=== PATIENT | female | born 1940 | race Caucasian/White ===

== ENCOUNTER → 2016-08-13 | Outpatient (CLI) | payer MEDICARE, BC ==
[2016-08-05 15:52] VITALS: BMI 27.4
[2016-08-13 13:31] VITALS: BP 143/69; PULSE 69; RESP 16; TEMP 98.2
--- NOTE | 2016-08-13 14:09 | P.CONS ---
History of Present Illness - Reason for Consult Consult date: 08/13/16 - History of Present Illness This is the initial consultation visit for this 76 years old female with a chronic history of severe low back pain with radiation to the lower extremity, started more than 6 months ago, the patient being treated by and Dr. Carbone at no other surgical Center, and she had diagnostic medial branch block lumbar area L2 to L5, and the result of the block was successful on 2 different occasions, and patient referred to [facility] pain clinic to have radiofrequency ablation of the medial branch lumbar area,( because patient had the defibrillator ) , patient denies any motor or sensory deficits denies any change in the bowel movement or urination, and she has no fever or night sweats, she is able to ambulate with difficulty secondary to pain, and the pain interfering with her quality of life and activity of daily livings, and she is here today, to discuss the radiofrequency ablation of the medial branch and to schedule her for the procedure Past Medical History Past Medical History: Coronary Artery Disease (CAD), Chest Pain / Angina, Heart Failure, CVA/TIA, Hyperlipidemia, Hypertension Additional Past Medical History / Comment(s): pain hips and "disc problems in back". Stroke - May 2015 History of Any Multi-Drug Resistant Organisms: None Reported Past Surgical History: AICD, Appendectomy, Cholecystectomy, Coronary Bypass/CABG , Hernia Repair, Orthopedic Surgery Additional Past Surgical History / Comment(s): CABG 2002, lt hip repair Past Anesthesia/Blood Transfusion Reactions: Motion Sickness Type of Cardiac Device: AICD Device Placement Date:: 2002 Past Psychological History: No Psychological Hx Reported Smoking Status: Current every day smoker Past Alcohol Use History: None Reported Additional Past Alcohol Use History / Comment(s): smokes 3 cigarettes/day Past Drug Use History: None Reported Additional Drug Use History / Comment(s): Smokes "3 cigarettes a day" - Past Family History Father Family Medical History: Cancer Additional Family Medical History / Comment(s): from colon cancer Mother Family Medical History: Cancer Additional Family Medical History / Comment(s): kidney cancer Medications and Allergies Home Medications Medication Instructions Recorded Confirmed Type ALPRAZolam [Xanax] 0.25 mg PO TID PRN 06/06/15 08/13/16 History Cholecalciferol [Vitamin D3] 1,000 unit PO DAILY 06/06/15 08/13/16 History Lisinopril [Zestril] 2.5 mg PO DAILY 06/06/15 08/13/16 History Atorvastatin [Lipitor] 80 mg PO HS 01/03/16 08/13/16 History Carvedilol [Coreg] 6.25 mg PO BID 01/03/16 08/13/16 History Fluticasone Nasal [place] [Flonase 1 spray EA NOSTRIL BID PRN 01/03/16 08/13/16 History Nasal [place]] Allergies Allergy/AdvReac Type Severity Reaction Status Date / Time No Known Allergies Allergy Verified 08/13/16 13:09 Physical Exam Vitals: Vital Signs Temp Pulse Resp BP 08/13/16 13:14 98.2 F 69 16 143/69 Social history : smoker , NO ETOH , NO Illegal drugs use . Review of Systems : 1- Constitutional : no chills , no fever , no night sweats , 2- Ears : no ear discharge , no change in hearing 3-Nose, Mouth ,Throat ; no bleeding gums, no sore throat , no epistaxis , 4-Cardiovascular : Denies chest pain, , no orthopnea , no palpitation 5-Respiratory : Denies cough , no dyspnea , no hemoptysis 6-Gastrointestinal :, no change in bowel habits , no coffee- ground emesis . 7-Genitourinary : No hematuria , no discharge , no incontinence, 8-Musculoskeletal : No gait dysfunction , report low back pain , 9- Neurological : no ataxia , no tremor , no sezure , 10-Psychatric , no suicidal ideation no hallucination 11- Endocrine : no cold intolerence , no polyuria , no polydypsia , 12-Hematologic : no easy bleeding , no easy brusing , 13-Allergic / immunology : no angioedema , no wheezing ,no allergic rhinitis 14-Integumentary : no brttle nails , no change hair / nails , no foot/leg ulcers . Physical Examinations : 1-Constitutional : Cooperative , not in acute distress . 2-HEENT : nech ; supple , no Lymphadenopathy , no Thyromegaly , eyes , no icterus, no photophobia . ENT : , normal oropharynx , no Thrush 3- Respiratory : Chest clear to auscultations Bilaterally , no wheezing . 4- Cardiovascular : regular rate and rhythem , S1 , S2 , no S3 , no S4. 5- Gastrointestinal: abdomen soft no tenderness , no organomegally . 6- Genitourinary : Defferred . 7-Integumentary : No cellulitis , no ulcers , normal skin turgor , no cyanotic . 8- neurologic : Cranial nerve II to XII intact , no focal neurological deffecit 9-psychatric : alert , oriented X 3 , appropriate affect , intact judgment and insight . 10-Lymphatic : no Lymphadenopathy. 11- musculoskeltal: exams of the Lumber spine = moter stegnth lower extremities , thigh and legs 5/5 Right side , 5/5 Left side deep tendon reflexes : normal Knee Jerk , normal ankle Jerk positive lumber facet Loading Test Range of motion of the lumbar spine Flexion 60 degrees, extension 10 degrees strait leg raising test negative bilaterally Fabere test negative bilaterally Results Comments: Computed tomography scan of the lumbar spine done December multilevel lumbar bulging disc disease Assessment and Plan Plan: Assessment and plan = - Chronic low back pain secondary to lumbar degenerative disc disease , lumbar spondylosis with facet arthropathy without myelopathy , Patient had a diagnostic medial branch block lumbar area is L 2-3/L3-4 /L4- 5 done twice at different pain clinic and patient had good results with the block ,and she will be in good candidate for radiofrequency ablation of the medial branch, and she was referred to [facility] pain clinic , because she had defibrillator, procedure risk and benefits and alternatives discussed with the patient and she agreed with proceeding.
== END | disposition home or self-care (01) ==
LOC: PNWHC3 12:25
PROVIDERS: ATTEND Specialist
DX: M51.36 Other intervertebral disc degeneration, lumbar region (principal); M47.816 Spondylosis without myelopathy or radiculopathy, lumbar region; M46.96 Unspecified inflammatory spondylopathy, lumbar region; M47.817 Spondylosis without myelopathy or radiculopathy, lumbosacral region; F17.200 Nicotine dependence, unspecified, uncomplicated; Z79.899 Other long term (current) drug therapy; I25.10 Atherosclerotic heart disease of native coronary artery without angina pectoris; I20.9 Angina pectoris, unspecified; I50.9 Heart failure, unspecified; Z86.73 Personal history of transient ischemic attack (TIA), and cerebral infarction without residual deficits; E78.5 Hyperlipidemia, unspecified; I10 Essential (primary) hypertension; Z95.1 Presence of aortocoronary bypass graft; Z95.810 Presence of automatic (implantable) cardiac defibrillator
CPT/HCPCS: 99211

== ENCOUNTER 2016-09-10 08:44 | Day surgery (SDC) | payer MEDICARE, BC ==
[2016-09-09 10:37] VITALS: BMI 27.4
[~2016-09-10 08:44] MED LIST: LACTATED RINGERS 1,000 ML IV SCH
[2016-09-10 09:18] VITALS: TEMP 97.7
[2016-09-10] MEDS ORDERED: LIDOCAINE 1% 20 ML VIAL (10MG/ML) FOR IV START INTRADERMA ONE (09:24)
[2016-09-10] MEDS ORDERED: TRIAMCINOLONE ACETONIDE 40 MG/ML 1 ML VIAL ONE (10:01)
[2016-09-10] MEDS ORDERED: MIDAZOLAM 2 MG/2 ML VIAL ONE (10:01)
[2016-09-10] MEDS ORDERED: fentaNYL (PF) 50 MCG/ML 2 ML AMP ONE (10:01)
[2016-09-10] MEDS ORDERED: IV FLUID CONTINUATION 1,000 ML IV ONE ×2 (10:45)
--- NOTE | 2016-09-10 10:51 | FL ---
FLUOROSCOPY 12 seconds of fluoroscopy time were utilized during Pain Injection. 3 images document the procedure.
[2016-09-10 11:04] VITALS: BP 108/55; PULSE 65; RESP 18
--- NOTE | 2016-09-10 11:47 | P.PCN ---
Date of Procedure: 09/10/16 Surgeon: Javi Lainez Pathology: none sent Condition: stable Disposition: PACU Description of Procedure: PREOPERATIVE DIAGNOSIS: Lumbar spondylosis without myelopathy and facet arthropathy POSTOPERATIVE DIAGNOSIS: Lumbar spondylosis without myelopathy and facet arthropathy PROCEDURES: Right Radiofrequency thermocoagulation, L3, L4, and L5 medial branch , with fluoroscopic guidance. ANESTHESIA: 1% lidocaine plain; Conscious sedation with versed/fentanyl EBL: Minimal PROCEDURE INDICATION: The patient with low back pain secondary to lumbar arthropathy who had more than 50% relief of pain with previous diagnostic lumbar medial branch block with bupivacaine. Patient presents for RFA today; off Plavix for one week. There is clearance from Dr. Mo (cardiology) that patient's defibrillator does not need to be turned off for medial branch radiofrequency ablation. PROCEDURE DESCRIPTION / TECHNIQUE: The patient was seen and identified in the preoperative area. Risks, benefits, complications, and alternatives were discussed with the patient (including but not limited to incomplete pain relief , bleeding, infection, nerve damage, and allergies to medications), the patient agreed to proceed with the procedure and signed the consent after all questions were answered. Patient was taken to the OR and time out was completed to verify proper patient , position, laterality of pain, and allergies. Pt was placed in the prone position. IV was started. Vital signs remained stable throughout the procedure. A pillow was placed under the patients chest to decrease lordosis. The lumbosacral area was prepped and draped in the usual sterile fashion. Vital signs were closely monitored during the procedure. Conscious sedation was used during the procedure to decrease patients anxiety. Using AP and then oblique fluoroscopy, the eye of the Roel dog corresponding to the connection between the superior and transverse articular processes of right L4, L5 and top of the sacrum were identified, marked, and localized with 1% lidocaine. Subsequently, a 20 gauge, 100-mm radiofrequency cannula with a 10-mm active tip was advanced guided by fluoroscopy to each of the eyes of the Roel dog at right L3, L4, and L5 medial branches. Each site then underwent sensory testing at 50 Hz and 0 to 1 volt and motor testing at 2 Hz and 0 to 3 volt with local stimulation, but no radicular symptoms down the legs. Thereafter the right L3, L4, and L5 medial branch sites underwent radiofrequency thermocoagulation at 80 degrees Celsius for 90 seconds after injecting 0.5 ml of PF lidocaine 1%. After thermocoagulation, 1 ml of the block solution containing Kenalog 40 mg and 2 mL of preservative-free normal saline was injected at the right L3, L4, and L5 medial branch levels after negative aspiration of CSF and blood and with no paresthesias. Cannulas were retracted while injecting lidocaine 1% until the needles were removed. At the end of the procedure, the skin was cleansed and bandages were applied. COMPLICATIONS: No acute complications. DISPOSITION / PLANS: The patient was placed in a supine position and transferred to the recovery area in a stable condition for observation and was discharged from the recovery room after meeting discharge criteria. Home discharge instructions given to the patient by the staff. The patient was reexamined prior to discharge and there were no issues. The patient will schedule a follow up for left lumbar RFA in 4-6 weeks.
== END 2016-09-10 11:17 | disposition home or self-care (01) ==
LOC: ORPAIN 08:44
PROVIDERS: ATTEND Anesthesiology
DX: G89.29 Other chronic pain (principal); M51.36 Other intervertebral disc degeneration, lumbar region; M47.816 Spondylosis without myelopathy or radiculopathy, lumbar region; M46.96 Unspecified inflammatory spondylopathy, lumbar region; F41.9 Anxiety disorder, unspecified; I25.119 Atherosclerotic heart disease of native coronary artery with unspecified angina pectoris; I11.0 Hypertensive heart disease with heart failure; I50.9 Heart failure, unspecified; E78.5 Hyperlipidemia, unspecified; F17.210 Nicotine dependence, cigarettes, uncomplicated; Z79.899 Other long term (current) drug therapy; Z86.73 Personal history of transient ischemic attack (TIA), and cerebral infarction without residual deficits; Z95.810 Presence of automatic (implantable) cardiac defibrillator; Z95.1 Presence of aortocoronary bypass graft
CPT/HCPCS: 64635; 64636 ×2; 99152; J2250; J3301; J3010

== ENCOUNTER → 2016-10-21 | Day surgery (SDC) | payer MEDICARE, BC ==
[2016-10-16 09:51] VITALS: BMI 27.4
[~2016-10-21] MED LIST changes: +HYDROmorphone 1 MG/ML 1 ML SYRINGE IVP STA; +IV FLUID CONTINUATION 1,000 ML IV ONE; +LIDOCAINE 1% 20 ML VIAL (10MG/ML) FOR IV START INTRADERMA ONE; +MIDAZOLAM 2 MG/2 ML VIAL ONE; +TRIAMCINOLONE ACETONIDE 40 MG/ML 1 ML VIAL ONE; +fentaNYL (PF) 50 MCG/ML 2 ML AMP ONE
[2016-10-21 09:25] VITALS: TEMP 98
[2016-10-21 11:01] VITALS: RESP 18
--- NOTE | 2016-10-21 11:25 | P.PCN ---
Date of Procedure: 10/21/16 Surgeon: Javi Lainez Pathology: none sent Condition: stable Disposition: PACU Description of Procedure: PREOPERATIVE DIAGNOSIS: Lumbar spondylosis without myelopathy and facet arthropathy POSTOPERATIVE DIAGNOSIS: Lumbar spondylosis without myelopathy and facet arthropathy PROCEDURES: Left Radiofrequency thermocoagulation, L3, L4, and L5 medial branch , with fluoroscopic guidance. ANESTHESIA: 1% lidocaine plain; Conscious sedation with versed/fentanyl EBL: Minimal PROCEDURE INDICATION: The patient with low back pain secondary to lumbar arthropathy who had more than 50% relief of pain with previous diagnostic lumbar medial branch block with bupivacaine. Patient presents for RFA today; off Plavix for one week. There is clearance from Dr. Mo (cardiology) that patient's defibrillator does not need to be turned off for medial branch radiofrequency ablation. PROCEDURE DESCRIPTION / TECHNIQUE: The patient was seen and identified in the preoperative area. Risks, benefits, complications, and alternatives were discussed with the patient (including but not limited to incomplete pain relief , bleeding, infection, nerve damage, and allergies to medications), the patient agreed to proceed with the procedure and signed the consent after all questions were answered. Patient was taken to the OR and time out was completed to verify proper patient , position, laterality of pain, and allergies. Pt was placed in the prone position. IV was started. Vital signs remained stable throughout the procedure. A pillow was placed under the patients chest to decrease lordosis. The lumbosacral area was prepped and draped in the usual sterile fashion. Vital signs were closely monitored during the procedure. Conscious sedation was used during the procedure to decrease patients anxiety. Using AP and then oblique fluoroscopy, the eye of the Roel dog corresponding to the connection between the superior and transverse articular processes of left L4, L5 and top of the sacrum were identified, marked, and localized with 1% lidocaine. Subsequently, a 20 gauge, 100-mm radiofrequency cannula with a 10-mm active tip was advanced guided by fluoroscopy to each of the eyes of the Roel dog at left L3, L4, and L5 medial branches. Each site then underwent sensory testing at 50 Hz and 0 to 1 volt and motor testing at 2 Hz and 0 to 3 volt with local stimulation, but no radicular symptoms down the legs. Thereafter the left L3, L4, and L5 medial branch sites underwent radiofrequency thermocoagulation at 80 degrees Celsius for 90 seconds after injecting 0.5 ml of PF lidocaine 1%. After thermocoagulation, 1 ml of the block solution containing Kenalog 40 mg and 2 mL of preservative-free normal saline was injected at the left L3, L4, and L5 medial branch levels after negative aspiration of CSF and blood and with no paresthesias. Cannulas were retracted while injecting lidocaine 1% until the needles were removed. At the end of the procedure, the skin was cleansed and bandages were applied. COMPLICATIONS: No acute complications. DISPOSITION / PLANS: The patient was placed in a supine position and transferred to the recovery area in a stable condition for observation and was discharged from the recovery room after meeting discharge criteria. Home discharge instructions given to the patient by the staff. The patient was reexamined prior to discharge and there were no issues. Of note, this procedure was more traumatic than her previous RFA in the sense that I noted more bleeding as I was placing the cannulas and had to readjust their position several times, even though the patient noted multiple times that she had been off her Plavix for seven days. I instructed the family regarding signs and symptoms of epidural hematoma, including weakness, incontinence, and extreme pain at injection site, and requested them to either call our clinic or to go to the emergency room right away if she has any of these symptoms; the patient and her son verbalized understanding. The patient will schedule a follow up with our clinic as needed; she plans to return to see Dr. Carbone after this procedure.
[2016-10-21 11:34] VITALS: BP 131/74; PULSE 71
--- NOTE | 2016-10-21 13:20 | FL ---
EXAMINATION TYPE: FL guided pain mgmt statistic DATE OF EXAM: 10/21/2016 10:54 AM FLUOROSCOPY Fluoroscopy time of 31 seconds was used during lumbar facet pain intervention procedure. 4 image/s d ocument/s the procedure.
== END | disposition home or self-care (01) ==
LOC: ORPAIN 09:08
PROVIDERS: ATTEND Anesthesiology
DX: M47.816 Spondylosis without myelopathy or radiculopathy, lumbar region (principal); M46.96 Unspecified inflammatory spondylopathy, lumbar region; I11.0 Hypertensive heart disease with heart failure; E78.5 Hyperlipidemia, unspecified; Z95.810 Presence of automatic (implantable) cardiac defibrillator; F41.9 Anxiety disorder, unspecified; Z79.01 Long term (current) use of anticoagulants; Z79.02 Long term (current) use of antithrombotics/antiplatelets; Z79.891 Long term (current) use of opiate analgesic; Z79.899 Other long term (current) drug therapy
CPT/HCPCS: 99152; 99153; 64635; 64636 ×2; J2250; J3301; J3010

== ENCOUNTER 2016-11-26 06:15 | Day surgery (SDC) | payer MEDICARE, BC ==
[2016-11-25 09:42] VITALS: BMI 26.6
[~2016-11-26 06:15] MED LIST changes: -HYDROmorphone 1 MG/ML 1 ML SYRINGE IVP STA; -IV FLUID CONTINUATION 1,000 ML IV ONE; -LIDOCAINE 1% 20 ML VIAL (10MG/ML) FOR IV START INTRADERMA ONE; -MIDAZOLAM 2 MG/2 ML VIAL ONE; +SODIUM CHLORIDE 0.9% 1,000 ML IV SCH; -TRIAMCINOLONE ACETONIDE 40 MG/ML 1 ML VIAL ONE; +ceFAZolin 1,000 MG in SODIUM CHLORIDE 0.9% IRRIGATIO 250 ML IRRIGATION ONE; +ceFAZolin 2 GM in SODIUM CHLORIDE 0.9% 100 ML IVPB ONE; -fentaNYL (PF) 50 MCG/ML 2 ML AMP ONE
[2016-11-26] MEDS ORDERED: SODIUM CHLORIDE 0.9% 1,000 ML IV ONE (07:17)
[2016-11-26 07:21] VITALS: RESP 16; TEMP 98.2
[2016-11-26] MEDS ORDERED: PROPOFOL 10 MG/ML 20 ML VIAL IV ONE (07:27)
[2016-11-26] MEDS ORDERED: MIDAZOLAM 2 MG/2 ML VIAL ONE (07:27)
[2016-11-26] MEDS ORDERED: fentaNYL (PF) 50 MCG/ML 2 ML AMP ONE (07:27)
[2016-11-26 07:28] LABS: Basophils # (A) 0.1 k/uL (0-0.2); Basophils % (A) 1 %; CH 32.9; Eosinophils # (A) 0.2 k/uL (0-0.7); Eosinophils % (A) 3 %; HCT 41.8 % (34.0-46.0); HDW 2.51; HGB 14.2 gm/dL (11.4-16.0); Luc # (Auto) 0.16; Luc % (Auto) 2; Lymphocytes # (A) 2.1 k/uL (1.0-4.8); Lymphocytes % (A) 24 %; MCH 33.1 pg (25.0-35.0); MCV 97.4 fL (80.0-100.0); Mean Platelet Volume 6.6; Monocytes # (A) 0.5 k/uL (0-1.0); Monocytes % (A) 6 %; Neutrophils # (A) 5.6 k/uL (1.3-7.7); Neutrophils % (A) 65 %; RDW 13.2 % (11.5-15.5); WBC 8.7 k/uL (3.8-10.6); WBC (Perox) 8.67
[2016-11-26 07:41] LABS: Anion Gap 9 mmol/L; Carbon Dioxide 27 mmol/L (22-30); Chloride 105 mmol/L (98-107); Glucose 114 mg/dL (74-99); Non-African American GFR(MDRD) >60 (>60 ml/min/1.73 sqM); Sodium 141 mmol/L (137-145)
[2016-11-26 07:47] LABS: Potassium 4.5 mmol/L (3.5-5.1)
[2016-11-26 07:48] LABS: Blood Urea Nitrogen 9 mg/dL (7-17)
[2016-11-26] MEDS ORDERED: LIDOCAINE 1% INJ 10MG/ML (10 ML MDV) SQ ONE (07:52)
[2016-11-26] MEDS ORDERED: HYDROcodone/APAP 5-325MG 1 EACH TAB PO PRN (08:31)
[2016-11-26] MEDS ORDERED: ACETAMINOPHEN TAB 325 MG TAB PO PRN (08:31)
--- NOTE | 2016-11-26 08:52 | P.PCN ---
Date of Procedure: 11/26/16 Preoperative Diagnosis: Battery depletion of AICD Postoperative Diagnosis: The same Procedure(s) Performed: Generator change for AICD Description of Procedure: HISTORY: His is a 76-year-old with history of ischemic cardiomyopathy status post ACD implantation for primary prevention. On recent evaluation. Patient was found to have evidence of battery depletion. Patient is advised elective replacement and was brought into the procedure. CONSENT: I have discussed the risks and benefits as related to the above mentioned procedure and both sedation/analgesia as well as necessary blood product administration. The patient has indicated understanding and acceptance of the risks of the procedure discussed. PROCEDURE: Patient was brought to the lab in a fasting state. Patient was given IV Versed and fentanyl for sedation. The skin over the existing pulse generator was infiltrated with lidocaine. An incision was made in the skin and was deepened until the pectoral fascia was exposed. Hemostasis was obtained. The existing pulse generator was pulled out of the pocket. The leads were disconnected and were checked for thresholds. THRESHOLDS: ATRIAL: 1.3 V at pulse width of 0.5 ms. Impedance is 473 ohms . P-wave: 5 millivolts VENTRICULAR: 0.8 V at pulse width of 0.4 ms and the impedance is 541 ohms . R-wave :25 mV THE LEADS: ATRIAL: This is manufactured by [employer]. Model number is 4087. Serial number is [id number] VENTRICULAR: this is manufactured by [employer]. Model number is 0158 and the serial number is [id number] THE EXPLANTED DEVICE 1. This is manufactured by [employer]. Model number is [id number] the serial number is [id number] THE NEW DEVICE: this is manufactured by [employer]. Number is [id number]. Serial number is [id number]. . The leads were then connected to a new pulse generator . Pacemaker seems to function normally. DFT TESTING: Patient was given deep sedation by department of anesthesia. Ventricle fibrillation was induced with T shock. This was appropriately detected and 11 J shock converted the V. fib into a sinus rhythm. Patient tolerated the procedure well. The pocket was irrigated with antibiotics. The pocket was closed in the usual fashion. Pectoral fascia was closed with 2-0 Prolene, the subcutaneous tissue was closed with 3-0 Prolene and the skin was closed with 4-0 Prolene. Patient tolerated the procedure well . Patient will be monitored on the telemetry unit for 2-3 hours. If stable patient be discharged home later today. PROGRAMMING: Juvencio pacing: New Mode :DDDR. Rate: 60 to 130. Output is 2 V at 0.6 ms in the atrium and 2 V at 0.4 ms in the ventricle. TACHYCARDIA THERAPY: VF zone is programmed to 200 bpm. Therapies are programmed to 21 J 1 followed by 31 J 1 followed with 41 J 6. VT zone is programmed to a rate of 1 65 bpm. Therapies programmed to 11 J 1 followed by 21 J 1 followed by 41 J 4 PLAN: patient will be continued on prophylactic antibiotics. Patient will be discharged home later today. Usual discharge instructions. Follow-up in the office in one week FALLOW UP: with a Dr. Mo in one week.
[2016-11-26 12:53] VITALS: BP 105/58; PULSE 65
== END 2016-11-26 12:53 | disposition home or self-care (01) ==
LOC: CATHEP 06:15
PROVIDERS: ATTEND Internal Medicine Cardiovascular Disease
DX: Z45.02 Encounter for adjustment and management of automatic implantable cardiac defibrillator (principal); I25.5 Ischemic cardiomyopathy; Z82.49 Family history of ischemic heart disease and other diseases of the circulatory system; I10 Essential (primary) hypertension; I35.0 Nonrheumatic aortic (valve) stenosis; I47.2 Ventricular tachycardia; I65.21 Occlusion and stenosis of right carotid artery; Z79.899 Other long term (current) drug therapy; I25.10 Atherosclerotic heart disease of native coronary artery without angina pectoris; E78.00 Pure hypercholesterolemia, unspecified; E78.5 Hyperlipidemia, unspecified; Z86.73 Personal history of transient ischemic attack (TIA), and cerebral infarction without residual deficits; Z95.1 Presence of aortocoronary bypass graft; Z79.82 Long term (current) use of aspirin
CPT/HCPCS: 93641; 33263; 80048; 85025; C1721; J2250; J3010; J2001; J2704

== ENCOUNTER 2017-02-08 15:59 | Emergency (ER) | payer MEDICARE, BC ==
[2017-02-08] MEDS ORDERED: BUTALB/APAP/CAFF 50-325-40MG TAB PO STA (16:43)
--- NOTE | 2017-02-08 17:32 | ED ---
General Adult HPI - General Chief complaint: Headache Stated complaint: eye/head pressure Time Seen by Provider: 02/08/17 16:35 Source: patient, RN notes reviewed Mode of arrival: ambulatory Limitations: no limitations - History of Present Illness Initial comments: 76-year-old female presents emergency Department chief complaint of headache, right eye pressure. Patient states she's had on and off symptoms last 6 months. Patient is here because family is concerned about her symptoms not resolving. Patient states that she just feels pressure that is declined originally denies any pain with ocular movements. She denies any blurred vision and states that she has not seen a doctor in over 1 year. Denies any trauma. Denies fever, chills. She does have a history of migraine headaches in which she states is maybe just related to. Patient denies any nausea, vomiting. She does admit to some photophobia. Denies any visual floaters. Patient has not taken anything for the headache at this time. - Related Data Home Medications Medication Instructions Recorded Confirmed ALPRAZolam [Xanax] 0.25 mg PO TID PRN 06/06/15 11/26/16 Cholecalciferol [Vitamin D3] 1,000 unit PO DAILY 06/06/15 11/26/16 Lisinopril [Zestril] 2.5 mg PO 1300 06/06/15 11/26/16 Atorvastatin [Lipitor] 80 mg PO HS 01/03/16 11/26/16 Carvedilol [Coreg] 6.25 mg PO BID 01/03/16 11/26/16 Fluticasone Nasal [place] [Flonase 1 spray EA NOSTRIL BID PRN 01/03/16 11/26/16 Nasal [place]] diphenhydrAMINE [Benadryl] 50 mg PO DAILY PRN 10/16/16 11/26/16 Aspirin [Adult Low Dose Aspirin EC] 81 mg PO DAILY 11/25/16 11/26/16 HYDROcodone/APAP 5-325MG [[place] 1 tab PO Q4HR PRN 11/25/16 11/26/16 5-325] Previous Rx's Medication Instructions Recorded Cephalexin [Keflex] 500 mg PO Q8HR #10 cap 11/26/16 HYDROcodone/APAP 5-325MG [[place] 1 each PO Q4HR PRN #10 tab 11/26/16 5-325] Butalb/APAP/Caff 50-325-40Mg 1 tab PO Q6HR PRN #20 tablet 02/08/17 [Fioricet 50-325-40] Allergies Allergy/AdvReac Type Severity Reaction Status Date / Time No Known Allergies Allergy Verified 02/08/17 16:33 Review of Systems ROS Statement: Those systems with pertinent positive or pertinent negative responses have been documented in the HPI. ROS Other: All systems not noted in ROS Statement are negative. Past Medical History Past Medical History: CVA/TIA, Hyperlipidemia, Hypertension, Myocardial Infarction ([place]) Additional Past Medical History / Comment(s): "disc problems in back", stroke 1998-no left over effects, see Dr Hernandez H&P, hx polyps, fell December 2015-fx left hip Last Myocardial Infarction Date:: 2000 History of Any Multi-Drug Resistant Organisms: None Reported Past Surgical History: AICD, Appendectomy, Bowel Resection, Cholecystectomy, Coronary Bypass/CABG, Heart Catheterization With Stent, Hernia Repair, Orthopedic Surgery Additional Past Surgical History / Comment(s): CABG 2002, lt hip surgery after fx 2015, lesion removed from left arm, jan cataracts Past Anesthesia/Blood Transfusion Reactions: Motion Sickness Date of Last Stent Placement:: 2000 Type of Cardiac Device: AICD Device Placement Date:: 2002 Past Psychological History: Anxiety, Depression Smoking Status: Current every day smoker Past Alcohol Use History: None Reported Past Drug Use History: None Reported - Past Family History Sister(s) Family Medical History: Cancer Father Family Medical History: Cancer Additional Family Medical History / Comment(s): . Mother Family Medical History: Cancer Additional Family Medical History / Comment(s): . General Exam Limitations: no limitations General appearance: alert, in no apparent distress Eye exam: Present: normal appearance, PERRL, EOMI. Absent: scleral icterus, conjunctival injection, periorbital swelling Pupils: Present: normal accommodation Expanded Visual acuity (R) = 20/: 40 Visual acuity (L) = 20/: 25 With correction: Yes IOP (R) in mmH ENT exam: Present: normal exam, mucous membranes moist Neck exam: Present: normal inspection, full ROM. Absent: tenderness, meningismus, lymphadenopathy Respiratory exam: Present: normal lung sounds bilaterally. Absent: respiratory distress, wheezes, rales, rhonchi, stridor Cardiovascular Exam: Present: regular rate, normal rhythm, normal heart sounds. Absent: systolic murmur, diastolic murmur, rubs, gallop, clicks Neurological exam: Present: alert, oriented X3, CN II-XII intact, reflexes normal. Absent: motor sensory deficit Skin exam: Present: warm, dry, intact, normal color. Absent: rash Course Vital Signs 02/08/17 02/08/17 16:29 17:15 Temperature 98.1 F Pulse Rate 62 70 Respiratory 18 18 Rate Blood Pressure 174/79 165/69 O2 Sat by Pulse 98 97 Oximetry Medical Decision Making - Medical Decision Making 76-year-old female presented for right eye pressure headache Symptoms. Patient is feeling proved after piercing. Patient CT does not show an acute abnormality she does have chronic changes on their consistent with prior CTs. Patient's ocular pressure is 12 she has no signs of trauma no visual changes. Patient will follow-up with neurology and ophthalmology those most likely related to migraine headaches. Return parameters were discussed. Disposition Clinical Impression: Headache Disposition: HOME SELF-CARE Condition: Stable Instructions: Acute Headache (ED) Additional Instructions: Please return to the Emergency Department if symptoms worsen or any other concerns. Prescriptions: Butalb/APAP/Caff 50-325-40Mg [Fioricet 50-325-40] 1 tab PO Q6HR PRN #20 tablet PRN Reason: Headache Referrals: Nishant Huffman DO [Primary Care Provider] - 1-2 days Latrice Camarena MD [STAFF PHYSICIAN] - 1-2 days Jake Lagos MD [STAFF PHYSICIAN] - 1-2 days Time of Disposition: 17:53
--- NOTE | 2017-02-08 17:34 | CT ---
EXAMINATION TYPE: CT brain wo con DATE OF EXAM: 02/08/2017 HISTORY: Right sided eye and head pressure on and off x 6-[address] DLP: 1088.00 mGycm. Automated Exposure Control for Dose Reduction was Utilized. TECHNIQUE: CT scan of the head is performed without contrast. COMPARISON: CT brain June 06, 2015. FINDINGS: There is no acute intracranial hemorrhage or midline shift identified. There is diffuse v entricular and sulcal prominence consistent with diffuse age-related cerebral atrophy. There is low- attenuation in the periventricular white matter consistent with chronic small vessel ischemic change. Old infarcts right head of caudate nucleus and left coronal radiata are redemonstrated. The globes are intact and the visualized sinuses are clear. IMPRESSION: No acute intracranial hemorrhage or midline shift. There is mild diffuse age-related ce rebral atrophy and to moderate chronic small vessel ischemic change as well as old infarcts all redem onstrated. No significant change from prior study is seen.
[2017-02-08 18:08] VITALS: BP 170/75; PULSE 63; RESP 20; TEMP 98.6
== END 2017-02-08 18:08 | disposition home or self-care (01) ==
LOC: EC 15:59
DX: R51 Headache (principal); H40.059 Ocular hypertension, unspecified eye; E78.5 Hyperlipidemia, unspecified; I25.2 Old myocardial infarction; I10 Essential (primary) hypertension; F17.200 Nicotine dependence, unspecified, uncomplicated; Z86.69 Personal history of other diseases of the nervous system and sense organs; Z86.73 Personal history of transient ischemic attack (TIA), and cerebral infarction without residual deficits; Z79.82 Long term (current) use of aspirin; Z79.899 Other long term (current) drug therapy
CPT/HCPCS: 70450; 99284

== ENCOUNTER 2017-02-20 09:34 | Emergency (ER) | payer MEDICARE, BC ==
--- NOTE | 2017-02-20 10:11 | ED ---
General Adult HPI - General Chief complaint: Recheck/Abnormal Lab/Rx Stated complaint: HPERTENSION Time Seen by Provider: 02/20/17 09:53 Source: patient, family, RN notes reviewed Mode of arrival: wheelchair Limitations: no limitations - History of Present Illness Initial comments: Patient is a pleasant 76-year-old female presenting to the emergency department with concerns regarding her blood pressure. Patient feels like her blood pressure has been up since yesterday afternoon. Patient was up till after 3 AM still with blood pressure problems. Patient woke up this morning and still feels her blood pressure is high. Blood pressure has been as high as 167/94. Patient does have chronic high blood pressure. Patient was seen one week ago with some pressure behind her eye. Patient had negative computed tomography scan and pressure in her eye was reported as normal. 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 Patient had her regular blood pressure medicine increased. Patient states she may feel slightly lightheaded at this time. No other complaints. No chest pain. No weakness. No confusion. Patient was worried she may not be able to swallow her pill today however was able to without any difficulty. - Related Data Home Medications Medication Instructions Recorded Confirmed ALPRAZolam [Xanax] 0.25 mg PO TID PRN 06/06/15 02/20/17 Cholecalciferol [Vitamin D3] 1,000 unit PO DAILY 06/06/15 02/20/17 Lisinopril [Zestril] 2.5 mg PO 1300 06/06/15 02/20/17 Atorvastatin [Lipitor] 80 mg PO HS 01/03/16 02/20/17 Carvedilol [Coreg] 6.25 mg PO BID 01/03/16 02/20/17 Aspirin [Adult Low Dose Aspirin EC] 81 mg PO DAILY 11/25/16 02/20/17 Allergies Allergy/AdvReac Type Severity Reaction Status Date / Time No Known Allergies Allergy Verified 02/20/17 09:43 Review of Systems ROS Statement: Those systems with pertinent positive or pertinent negative responses have been documented in the HPI. ROS Other: All systems not noted in ROS Statement are negative. Constitutional: Denies: fever Eyes: Denies: eye pain ENT: Denies: ear pain Respiratory: Denies: cough Cardiovascular: Denies: chest pain Endocrine: Denies: fatigue Gastrointestinal: Denies: abdominal pain Genitourinary: Denies: urgency Musculoskeletal: Denies: back pain Skin: Denies: rash Neurological: Denies: weakness Past Medical History Past Medical History: CVA/TIA, Hyperlipidemia, Hypertension, Myocardial Infarction ([place]) Additional Past Medical History / Comment(s): "disc problems in back", stroke 1998-no left over effects, see Dr Hernandez H&P, hx polyps, fell December 2015-fx left hip Last Myocardial Infarction Date:: 2000 History of Any Multi-Drug Resistant Organisms: None Reported Past Surgical History: AICD, Appendectomy, Bowel Resection, Cholecystectomy, Coronary Bypass/CABG, Heart Catheterization With Stent, Hernia Repair, Orthopedic Surgery Additional Past Surgical History / Comment(s): CABG 2002, lt hip surgery after fx 2015, lesion removed from left arm, jan cataracts Past Anesthesia/Blood Transfusion Reactions: Motion Sickness Date of Last Stent Placement:: 2000 Type of Cardiac Device: AICD Device Placement Date:: 2002 Past Psychological History: Anxiety, Depression Smoking Status: Current every day smoker Past Alcohol Use History: None Reported Past Drug Use History: None Reported - Past Family History Sister(s) Family Medical History: Cancer Father Family Medical History: Cancer Additional Family Medical History / Comment(s): . Mother Family Medical History: Cancer Additional Family Medical History / Comment(s): . General Exam Limitations: no limitations General appearance: alert, in no apparent distress Head exam: Present: atraumatic Eye exam: Present: normal appearance, PERRL ENT exam: Present: normal oropharynx Neck exam: Present: normal inspection Respiratory exam: Present: normal lung sounds bilaterally Cardiovascular Exam: Present: regular rate, normal rhythm GI/Abdominal exam: Present: soft. Absent: tenderness Extremities exam: Present: normal inspection Neurological exam: Present: alert. Absent: motor sensory deficit Psychiatric exam: Present: normal affect, normal mood Skin exam: Present: normal color Course Vital Signs 02/20/17 02/20/17 02/20/17 09:40 10:18 11:04 Temperature 97.6 F Pulse Rate 62 61 Respiratory 20 18 Rate Blood Pressure 155/67 142/66 141/64 O2 Sat by Pulse 94 L Oximetry - Reevaluation(s) Reevaluation #1: 02/20/17 10:09 Patient was updated on her blood pressures and what is an emergent blood pressure. Patient states she is here and would like some blood work done. EKG Findings - EKG Comments: EKG Findings:: Paced rhythm at 60. RI 192. QRS 90. QT 418. QTC 418. Normal axis. Normal QRS. T wave inversion leads V1 through V3. AVL. Previous EKG dated 01/03/2016 reviewed. Medical Decision Making - Medical Decision Making Blood pressure remains stable. Patient reexamined and remained symptom-free. Patient updated on results and need for follow-up. - Lab Data Result diagrams: 02/20/17 10:14 02/20/17 10:14 Lab Results 02/20/17 02/20/17 02/20/17 Range/Units 10:14 10:14 10:14 WBC 9.1 (3.8-10.6) k/uL RBC 4.65 (3.80-5.40) m/uL Hgb 14.8 (11.4-16.0) gm/dL Hct 44.5 (34.0-46.0) % MCV 95.8 (80.0-100.0) fL MCH 31.9 (25.0-35.0) pg MCHC 33.3 (31.0-37.0) g/dL RDW 13.7 (11.5-15.5) % Plt Count 182 (150-450) k/uL Neutrophils % 74 % Lymphocytes % 18 % Monocytes % 4 % Eosinophils % 2 % Basophils % 1 % Neutrophils # 6.7 (1.3-7.7) k/uL Lymphocytes # 1.6 (1.0-4.8) k/uL Monocytes # 0.4 (0-1.0) k/uL Eosinophils # 0.2 (0-0.7) k/uL Basophils # 0.0 (0-0.2) k/uL Sodium 139 (137-145) mmol/L Potassium 4.3 (3.5-5.1) mmol/L Chloride 106 (98-107) mmol/L Carbon Dioxide 25 (22-30) mmol/L Anion Gap 8 mmol/L BUN 7 (7-17) mg/dL Creatinine 0.71 (0.52-1.04) mg/dL Est GFR (MDRD) Af Amer >60 (>60 ml/min/1.73 sqM) Est GFR (MDRD) Non-Af >60 (>60 ml/min/1.73 sqM) Glucose 116 H (74-99) mg/dL Calcium 9.9 (8.4-10.2) mg/dL Total Creatine Kinase 75 (30-135) U/L CK-MB (CK-2) 1.3 (0.0-2.4) ng/mL CK-MB (CK-2) Rel Index 1.7 Troponin I <0.012 (0.000-0.034) ng/mL Disposition Clinical Impression: Hypertension Disposition: HOME SELF-CARE Condition: Stable Instructions: Hypertension (ED) Additional Instructions: Please follow-up with your primary care physician in the beginning of the week. Return for uncontrolled blood pressure weakness or confusion or pain, worsening symptoms or other concerns. Referrals: Nishant Huffman DO [Primary Care Provider] - 1-2 days Time of Disposition: 11:30
[2017-02-20 10:26] LABS: Basophils % (A) 1 %; CH 32.9; CHCM 34.4; Eosinophils # (A) 0.2 k/uL (0-0.7); Eosinophils % (A) 2 %; HCT 44.5 % (34.0-46.0); HDW 2.44; HGB 14.8 gm/dL (11.4-16.0); Luc # (Auto) 0.09; Luc % (Auto) 1; Lymphocytes # (A) 1.6 k/uL (1.0-4.8); Lymphocytes % (A) 18 %; MCH 31.9 pg (25.0-35.0); MCHC 33.3 g/dL (31.0-37.0); MCV 95.8 fL (80.0-100.0); Mean Platelet Volume 7.3; Monocytes # (A) 0.4 k/uL (0-1.0); Monocytes % (A) 4 %; Neutrophils # (A) 6.7 k/uL (1.3-7.7); Neutrophils % (A) 74 %; RBC 4.65 m/uL (3.80-5.40); RDW 13.7 % (11.5-15.5); WBC 9.1 k/uL (3.8-10.6); WBC (Perox) 8.95
[2017-02-20 10:45] LABS: Anion Gap 8 mmol/L; Blood Urea Nitrogen 7 mg/dL (7-17); Calcium 9.9 mg/dL (8.4-10.2); Carbon Dioxide 25 mmol/L (22-30); Chloride 106 mmol/L (98-107); Glucose 116 mg/dL (74-99); Non-African American GFR(MDRD) >60 (>60 ml/min/1.73 sqM); Sodium 139 mmol/L (137-145)
[2017-02-20 10:52] LABS: Potassium 4.3 mmol/L (3.5-5.1)
[2017-02-20 11:03] LABS: Creatine Kinase 75 U/L (30-135)
[2017-02-20 11:05] VITALS: RESP 18
[2017-02-20 11:16] LABS: Creatine Kinase MB 1.3 ng/mL (0.0-2.4); Troponin I <0.012 ng/mL (0.000-0.034)
[2017-02-20 11:44] VITALS: BP 152/63; PULSE 62; TEMP 98
== END 2017-02-20 11:59 | disposition home or self-care (01) ==
LOC: EC 09:34
DX: I10 Essential (primary) hypertension (principal); E78.5 Hyperlipidemia, unspecified; I25.2 Old myocardial infarction; F17.200 Nicotine dependence, unspecified, uncomplicated; Z95.1 Presence of aortocoronary bypass graft; Z95.5 Presence of coronary angioplasty implant and graft; Z95.810 Presence of automatic (implantable) cardiac defibrillator; Z79.82 Long term (current) use of aspirin; Z79.899 Other long term (current) drug therapy
CPT/HCPCS: 36415; 80048; 82550; 82553; 84484; 85025; 93005; 99283

== ENCOUNTER → 2018-07-14 | Outpatient (CLI) | payer MEDICARE, BC ==
--- NOTE | 2018-07-14 15:38 | CT ---
EXAMINATION TYPE: CT sinus wo con DATE OF EXAM: 07/14/2018 COMPARISON: 10/02/2015 HISTORY: 77 year-old female chronic Sinusitis, pain TECHNIQUE: Contiguous axial scanning of the paranasal sinuses without IV contrast. Coronal reconstruc tions performed. CT DLP: 596.5 mGycm Automated exposure control for dose reduction was used. FINDINGS: PARANASAL SINUSES: Mild mucosal thickening bilateral maxillary sinuses and moderate focally in the anterior right ethmoi d air cells. Frontal and sphenoid sinuses are well pneumatized. There is no air-fluid level. Reactive kain- osteogenesis is not seen. There is no destruction of the osseous zuleta of the paranasal sinuses. THE NASAL CAVITY: The osteomeatal complexes are patent. Slight bowing of the nasal septum towards the left. Prominent periventricular and deep white matter hypodensities are demonstrated and inadequately asses sed on this study. Possible changes of chronic small vessel ischemic disease. Visualized mastoid air cells and middle ear cavities are well pneumatized. Reformatted images confirm above findings. IMPRESSION: MILD CHRONIC MAXILLARY SINUS DISEASE AND FOCAL MODERATE MUCOSAL THICKENING INVOLVING A COUPLE RIGHT-S IDED ETHMOID AIR CELLS.
== END ==
LOC: RADCTMAIN 13:04
PROVIDERS: ATTEND Family Medicine
DX: J32.0 Chronic maxillary sinusitis (principal); J34.89 Other specified disorders of nose and nasal sinuses
CPT/HCPCS: 70486

== ENCOUNTER → 2018-08-03 | Outpatient (CLI) | payer MEDICARE, BC ==
--- NOTE | 2018-08-06 13:13 | MM ---
Reason for exam: screening (asymptomatic). Last mammogram was performed 2 years and 10 months ago. History: Patient is postmenopausal. Family history of breast cancer in sister at age 76. Took estrogen for 5 years beginning at age 56. MG 3D Screening Mammo W/Cad Bilateral CC and MLO view(s) were taken. Prior study comparison: October 09, 2015, bilateral MG screening mammo w CAD. April 30, 2014, bilateral MG screening mammo w CAD. There are scattered fibroglandular densities. There is bilateral chronic nodularity. A pacemaker generator is present over the superior left breast. No significant changes when compared with prior studies. ASSESSMENT: Negative, BI-RAD 1 RECOMMENDATION: Routine screening mammogram of both breasts in 1 year.
== END | disposition home or self-care (01) ==
LOC: RADMAMWWP 12:48
PROVIDERS: ATTEND Family Medicine
DX: Z12.31 Encounter for screening mammogram for malignant neoplasm of breast (principal)
CPT/HCPCS: 77063; 77067

== ENCOUNTER → 2018-09-05 | Outpatient (CLI) | payer MEDICARE, BC ==
[2018-09-06 13:03] LABS: Alt. alternata IgE Class CLASS 0; Alternaria alternata IgE <0.35 kU/L (<0.35); Asperg. fumagatus IgE <0.35 kU/L (<0.35); Asperg. fumagatus IgE Class CLASS 0; Aureo. pullulans IgE <0.35 kU/L (<0.35); Birch(Com.Silvr) IgE <0.35 kU/L (<0.35); Birch(Com.Silvr) IgE Class CLASS 0; Candida albicans IgE Class CLASS 0; Clad herbarum IgE <0.35 kU/L (<0.35); Cottonwood IgE <0.35 kU/L (<0.35); Epicoccum purpurascens Class CLASS 0; Epicoccum purpurascens IgE <0.35 kU/L (<0.35); Maple (Box Elder) IgE <0.35 kU/L (<0.35); Maple (Box Elder) IgE Class CLASS 0; Mucor racemosus IgE <0.35 kU/L (<0.35); Mucor racemosus IgE Class CLASS 0; Oak IgE <0.35 kU/L (<0.35); Rhizopus nigricans IgE <0.35 kU/L (<0.35); S.rostrata/Helminth Class CLASS 0; S.rostrata/Helminth IgE <0.35 kU/L (<0.35); Sycamore(Mpl.Lf) IgE <0.35 kU/L (<0.35); Walnut Tree IgE <0.35 kU/L (<0.35); Walnut Tree IgE Class CLASS 0; White Ash IgE Class CLASS 0
[2018-09-06 13:04] LABS: Cat Epith & Dander IgE <0.35 kU/L (<0.35); Cat Epith & Dander IgE Class CLASS 0; Cockroach IgE <0.35 kU/L (<0.35); Com. Pigweed IgE <0.35 kU/L (<0.35); Com. Pigweed IgE Class CLASS 0; Dermato. Pteronyssinus IgE <0.35 kU/L (<0.35); Dermato. farinae IgE <0.35 kU/L (<0.35); Dermato. farinae IgE Class CLASS 0; Dog Dander IgE <0.35 kU/L (<0.35); English Plantain IgE Class CLASS 0; Johnson Grass IgE Class CLASS 0; Lamb's Quarter IgE <0.35 kU/L (<0.35); Lamb's Quarter IgE Class CLASS 0; Timothy Grass IgE <0.35 kU/L (<0.35)
== END | disposition home or self-care (01) ==
LOC: LABWHC1 14:11
PROVIDERS: ATTEND Otolaryngology
DX: J30.89 Other allergic rhinitis (principal)
CPT/HCPCS: 36415; 86003

== ENCOUNTER → 2019-03-16 | Outpatient (CLI) | payer MEDICARE, BC ==
--- NOTE | 2019-03-17 09:09 | CT ---
EXAMINATION TYPE: CT brain wo/w con DATE OF EXAM: 03/16/2019 COMPARISON: 02/08/2017 INDICATION: Dizziness, sense of falling x1 year DLP: 2238 mGycm, Automated exposure control for dose reduction was used. CONTRAST: 100 mL Isovue-300 CT of the brain is performed utilizing 3 mm thick sections through the posterior fossa and 3 mm thick sections through the remaining calvarium. Study is performed within 24 hours of arrival to the hosp ital. No abnormal hyperdensity is present to suggest an acute intracranial hemorrhage. No mass lesion is evident. No acute infarcts are evident. There is an old infarct to the right caudate head into the basal gangl ia and with ex vacuo effect. An old lacunar infarct within the anterior left basal ganglion is also p resent which is an interval change from 2017. Periventricular white matter hypodensity is present lik ruben on the basis of chronic white matter ischemic changes. No suspicious enhancement is evident. Ventricles and sulci are prominent for the patient age. Paranasal sinuses and mastoid air cells within the xwolk-di-menk are clear. IMPRESSIONS: 1. Atrophy with chronic appearing patchy periventricular white matter ischemic changes. 2. Old lacunar infarcts bilateral basal ganglion
== END | disposition home or self-care (01) ==
LOC: RADCTMAIN 15:15
PROVIDERS: ATTEND Otolaryngology
DX: I67.82 Cerebral ischemia (principal); G31.9 Degenerative disease of nervous system, unspecified
CPT/HCPCS: 82565; 84520; 70470; 36415; Q9967

== ENCOUNTER → 2019-08-02 | Outpatient (CLI) | payer MEDICARE, BC ==
--- NOTE | 2019-08-02 15:46 | CT ---
EXAMINATION TYPE: CT angio chest DATE OF EXAM: 08/02/2019 COMPARISON: Outside CTA chest January 27, 2019 and older studies HISTORY: Thoracic aortic aneurysm, without rupture CT DLP: 1054 mGycm. Automated Exposure Control for Dose Reduction was Utilized. CONTRAST: CTA scan of the thorax is performed without and with IV Contrast, patient injected with 100 mL of Iso ni 370, pulmonary embolism protocol. Aneurysm protocol with 3-D reconstructed images created and a w orkstation and reviewed. FINDINGS: LUNGS: Mild left basilar linear scarring and/or atelectasis. Occasional small calcified nodule or gra nuloma again seen for reference 4 mm superior right lower lobe granuloma axial image 88. No pleural e ffusion or pneumothorax bilaterally. MEDIASTINUM: Post-CABG changes with overlying sternal wires and mediastinal clips is redemonstrated. Heart size is stable and upper limits of normal. Large aneurysm of the ascending aorta is again seen . This measures up to 5.6 cm axial image 61, I get similar measurements on prior outside study. Proxi mal arch measures 4.3 cm diameter axial image 45. Proximal descending aorta measures 3.8 cm axial sampson ge 49. Gradual tapering descending aorta. Right-sided pacemaker/defibrillator redemonstrated. Stable mild prominence of central pulmonary arteries. OTHER: Stable roughly 2.5 cm cyst left kidney anteriorly axial image 150. IMPRESSION: Large ascending aortic aneurysm up to 5.6 cm current study with some extension into the p roximal descending aorta. Overall no significant change from prior outside CT.
== END | disposition home or self-care (01) ==
LOC: RADCTMAIN 13:37
PROVIDERS: ATTEND Thoracic Surgery (Cardiothoracic Vascular Surgery)
DX: I71.2 Thoracic aortic aneurysm, without rupture (principal)
CPT/HCPCS: 82565; 84520; 71275; 36415; Q9967

== ENCOUNTER 2019-12-29 00:32 | Observation (INO) | payer MEDICARE, BC ==
[2019-12-29 00:59] LABS: Glucose,Whole Blood 99 mg/dL (75-99)
--- NOTE | 2019-12-29 01:15 | XR ---
EXAMINATION TYPE: XR chest 2V DATE OF EXAM: 12/29/2019 COMPARISON: January 17, 2019 HISTORY: Right sided numbness TECHNIQUE: FINDINGS: Heart is enlarged. There are sternal wires. There is left axillary pacemaker. There are ervin st leads. Lungs are clear of infiltrate. There is no heart failure. Bony thorax is intact. Thoracic a davis is atherosclerotic and tortuous. IMPRESSION: Aneurysmal changes of the thoracic aorta. No acute lung disease. No heart failure. Mild c ardiomegaly. No significant change.
--- NOTE | 2019-12-29 01:22 | CT ---
EXAMINATION TYPE: CT brain wo con for TPA DATE OF EXAM: 12/29/2019 COMPARISON: 03/16/2019 HISTORY: neuro deficits CT DLP: 1099.4 mGycm Automated exposure control for dose reduction was used. There is mild cerebral cortical atrophy. There is 2 x 1 cm hypodensity in the anterior right internal capsule. There is some patchy hypodensity in the white matter of both parietal lobes. There is no mi dline shift. There is no sign of intracranial hemorrhage. The calvarium is intact. Temporal bones gertrudis ear normal. There is no evidence of posterior fossa mass. IMPRESSION: Cerebral atrophy and chronic small vessel ischemia. Old multiple lacunar infarcts. No change compared to old exam.
[2019-12-29 01:25] LABS: Basophils # (A) 0.1 k/uL (0-0.2); Basophils % (A) 1 %; Eosinophils # (A) 0.6 k/uL (0-0.7); Eosinophils % (A) 5 %; HCT 43.4 % (34.0-46.0); HGB 14.1 gm/dL (11.4-16.0); Lymphocytes # (A) 2.8 k/uL (1.0-4.8); Lymphocytes % (A) 27 %; MCH 31.8 pg (25.0-35.0); MCHC 32.5 g/dL (31.0-37.0); MCV 97.8 fL (80.0-100.0); Mean Platelet Volume 7.7; Monocytes # (A) 0.6 k/uL (0-1.0); Monocytes % (A) 6 %; Neutrophils # (A) 6.1 k/uL (1.3-7.7); Neutrophils % (A) 60 %; Platelet Count 180 k/uL (150-450); RBC 4.44 m/uL (3.80-5.40); WBC 10.3 k/uL (3.8-10.6)
[2019-12-29 01:37] LABS: Partial Thromboplastin Time 30.3 sec (22.0-30.0); Prothrombin Time 10.1 sec (9.0-12.0)
[2019-12-29 01:38] LABS: Albumin 4.8 g/dL (3.5-5.0); Calcium 10.4 mg/dL (8.4-10.2); Potassium 4.1 mmol/L (3.5-5.1); Total Protein 7.4 g/dL (6.3-8.2)
[2019-12-29] MEDS ORDERED: ATORVASTATIN 40 MG TAB PO STA (01:49)
[2019-12-29] MEDS ORDERED: NALOXONE 0.4 MG/ML 1 ML VIAL IV PRN (01:49)
[2019-12-29] MEDS ORDERED: ASPIRIN 81 MG PO STA (01:49)
--- NOTE | 2019-12-29 02:06 | ED ---
Neuro HPI - General Chief Complaint: Neuro Symptoms/Deficit Stated Complaint: Right sided numbness Time Seen by Provider: 12/29/19 00:50 Source: patient Mode of arrival: ambulatory Limitations: no limitations - History of Present Illness Is the patient presenting with stroke symptoms?: No -: hour(s) Initial Comments: Mona is a 79-year-old female bent history of hypertension, hyperlipidemia TIAs and strokes in the past with no known deficits. Patient reports that throughout the evening she has had what she describes as numbness and pickiness in her right hand, she reports that her hand is been tingling and felt weak. She also states that her son told her she was having some slowed speech and didn't sound right and she became concerned that she may be having another stroke which prompted her to the ER for evaluation. Patient reports the symptoms have been waxing and waning throughout the evening, does seem to severe time of arrival. Patient denies any recent illness, fevers chills nausea or vomiting. - Related Data Home Medications: Home Medications Medication Instructions Recorded Confirmed ALPRAZolam [Xanax] 0.25 mg PO TID PRN 06/06/15 02/20/17 Cholecalciferol [Vitamin D3 (25 1,000 unit PO DAILY 06/06/15 02/20/17 Mcg = 1000 Iu)] Lisinopril [Zestril] 2.5 mg PO 1300 06/06/15 02/20/17 Atorvastatin [Lipitor] 80 mg PO HS 01/03/16 02/20/17 Carvedilol [Coreg] 6.25 mg PO BID 01/03/16 02/20/17 Aspirin [Adult Low Dose Aspirin EC] 81 mg PO DAILY 11/25/16 02/20/17 Allergies/Adverse Reactions: Allergies Allergy/AdvReac Type Severity Reaction Status Date / Time No Known Allergies Allergy Verified 12/29/19 00:41 Review of Systems ROS Statement: Those systems with pertinent positive or pertinent negative responses have been documented in the HPI. ROS Other: All systems not noted in ROS Statement are negative. General Exam Limitations: no limitations Stroke MDM - Lab Data Result diagrams: 12/29/19 00:56 12/29/19 00:56 Lab Results 12/29/19 12/29/19 12/29/19 Range/Units 00:55 00:56 00:56 WBC 10.3 (3.8-10.6) k/uL RBC 4.44 (3.80-5.40) m/uL Hgb 14.1 (11.4-16.0) gm/dL Hct 43.4 (34.0-46.0) % MCV 97.8 (80.0-100.0) fL MCH 31.8 (25.0-35.0) pg MCHC 32.5 (31.0-37.0) g/dL RDW 13.0 (11.5-15.5) % Plt Count 180 (150-450) k/uL Neutrophils % 60 % Lymphocytes % 27 % Monocytes % 6 % Eosinophils % 5 % Basophils % 1 % Neutrophils # 6.1 (1.3-7.7) k/uL Lymphocytes # 2.8 (1.0-4.8) k/uL Monocytes # 0.6 (0-1.0) k/uL Eosinophils # 0.6 (0-0.7) k/uL Basophils # 0.1 (0-0.2) k/uL PT 10.1 (9.0-12.0) sec INR 1.0 (<1.2) APTT 30.3 H (22.0-30.0) sec Sodium (137-145) mmol/L Potassium (3.5-5.1) mmol/L Chloride (98-107) mmol/L Carbon Dioxide (22-30) mmol/L Anion Gap mmol/L BUN (7-17) mg/dL Creatinine (0.52-1.04) mg/dL Est GFR (CKD-EPI)AfAm (>60 ml/min/1.73 sqM) Est GFR (CKD-EPI)NonAf (>60 ml/min/1.73 sqM) Glucose (74-99) mg/dL POC Glucose (mg/dL) 99 (75-99) mg/dL POC Glu Woodworking Machine Feeder ID Tammie Haas Calcium (8.4-10.2) mg/dL Total Bilirubin (0.2-1.3) mg/dL AST (14-36) U/L ALT (4-34) U/L Alkaline Phosphatase (38-126) U/L Troponin I (0.000-0.034) ng/mL Total Protein (6.3-8.2) g/dL Albumin (3.5-5.0) g/dL 12/29/19 12/29/19 Range/Units 00:56 00:56 WBC (3.8-10.6) k/uL RBC (3.80-5.40) m/uL Hgb (11.4-16.0) gm/dL Hct (34.0-46.0) % MCV (80.0-100.0) fL MCH (25.0-35.0) pg MCHC (31.0-37.0) g/dL RDW (11.5-15.5) % Plt Count (150-450) k/uL Neutrophils % % Lymphocytes % % Monocytes % % Eosinophils % % Basophils % % Neutrophils # (1.3-7.7) k/uL Lymphocytes # (1.0-4.8) k/uL Monocytes # (0-1.0) k/uL Eosinophils # (0-0.7) k/uL Basophils # (0-0.2) k/uL PT (9.0-12.0) sec INR (<1.2) APTT (22.0-30.0) sec Sodium 138 (137-145) mmol/L Potassium 4.1 (3.5-5.1) mmol/L Chloride 104 (98-107) mmol/L Carbon Dioxide 25 (22-30) mmol/L Anion Gap 9 mmol/L BUN 22 H (7-17) mg/dL Creatinine 0.91 (0.52-1.04) mg/dL Est GFR (CKD-EPI)AfAm 70 (>60 ml/min/1.73 sqM) Est GFR (CKD-EPI)NonAf 61 (>60 ml/min/1.73 sqM) Glucose 98 (74-99) mg/dL POC Glucose (mg/dL) (75-99) mg/dL POC Glu Woodworking Machine Feeder ID Calcium 10.4 H (8.4-10.2) mg/dL Total Bilirubin 2.0 H (0.2-1.3) mg/dL AST 37 H (14-36) U/L ALT 23 (4-34) U/L Alkaline Phosphatase 111 (38-126) U/L Troponin I <0.012 (0.000-0.034) ng/mL Total Protein 7.4 (6.3-8.2) g/dL Albumin 4.8 (3.5-5.0) g/dL - NIH Stroke Scale 1a. Level of Consciousness: (0) alert 1b. LOC Questions: (0) answers correctly 1c. LOC Commands: (0) performs tasks correctly 2. Best Gaze: (0) normal 3. Visual: (0) no visual loss 4. Facial Palsy: (0) normal symmetrical movement 5a. Motor Arm Left: (0) no drift 5b. Motor Arm Right: (0) no drift 6a. Motor Leg Left: (0) no drift 6b. Motor Leg Right: (0) no drift 7. Limb Ataxia: (0) absent 8. Sensory: (0) normal 9. Best Language: (0) no aphasia 10. Dysarthria: (0) normal 11. Extinction/Inattention: (0) no abnormality - Thrombolytic Inclusion/Exclusion Thrombolytic Contraindications: Rapidly Improving s/s - Medical Decision Making She was seen and evaluated upon arrival the emergency department 79-year-old female with reported right sided numbness tingling and speech difficulty prior to arrival that are now resolved. Patient does have a significant history. Labs and imaging were ordered and results with no acute findings. Given patient's age and risk factors we will plan to give her aspirin and Lipitor and admit her for TIA observation. Patient is agreeable to this. Past Medical History Past Medical History: CVA/TIA, Hyperlipidemia, Hypertension, Myocardial Infarction ([place]) Additional Past Medical History / Comment(s): "disc problems in back", stroke 1998-no left over effects, see Dr Hernandez H&P, hx polyps, fell December 2015-fx left hip Last Myocardial Infarction Date:: 2000 History of Any Multi-Drug Resistant Organisms: None Reported Past Surgical History: AICD, Appendectomy, Bowel Resection, Cholecystectomy, Coronary Bypass/CABG, Heart Catheterization With Stent, Hernia Repair, Orthope dic Surgery Additional Past Surgical History / Comment(s): CABG 2002, lt hip surgery after fx 2016, lesion removed from left arm, jan cataracts Past Anesthesia/Blood Transfusion Reactions: Motion Sickness Date of Last Stent Placement:: 2000 Type of Cardiac Device: AICD Device Placement Date:: 2002 Past Psychological History: Anxiety, Depression Smoking Status: Current every day smoker Past Alcohol Use History: None Reported Past Drug Use History: None Reported - Past Family History Sister(s) Family Medical History: Cancer Father Family Medical History: Cancer Additional Family Medical History / Comment(s): . Mother Family Medical History: Cancer Additional Family Medical History / Comment(s): . Course Vital Signs 12/29/19 00:34 Temperature 97.5 F L Pulse Rate 62 Respiratory 18 Rate Blood Pressure 169/66 O2 Sat by Pulse 98 Oximetry Disposition Clinical Impression: Transient cerebral ischemia Disposition: ADMITTED IP TO THIS HOSP Condition: Stable Referrals: Nishnat Huffman DO [Primary Care Provider] - 1-2 days
[2019-12-29] MEDS ORDERED: ALPRAZolam 0.25 MG TAB PO PRN (10:23)
[2019-12-29] MEDS: CARVEDILOL 12.5 MG TAB PO SCH ×2 (13:22→21:20)
[2019-12-29] MEDS: ENOXAPARIN 40 MG/0.4 ML SYRINGE SQ SCH (13:22)
[2019-12-29] MEDS: LISINOPRIL 10 MG TAB PO SCH (13:22)
[2019-12-29] MEDS: ASPIRIN 81 MG PO SCH (13:22)
--- NOTE | 2019-12-29 16:43 | CT ---
EXAMINATION TYPE: CT angio head neck DATE OF EXAM: 12/29/2019 COMPARISON: Correlation CT brain same day HISTORY: 79-year-old female neurologic deficit, suspected CVA TECHNIQUE: Contiguous axial scanning of the head and neck performed with IV Contrast, patient injecte d with 65cc mL of Isovue 370 Coronal/sagittal MIP reconstructions performed. 3-D reconstructions gene rated on a dedicated independent workstation. CT DLP: 435.3 mGycm Automated exposure control for dose reduction was used. FINDINGS: Neck: Aneurysm upper descending thoracic aorta 4.1 cm. Proximal arch appears aneurysmal to 5.4 cm. Bovine configuration to the aortic arch and tortuous arch vessels. Left anterior chest wall AICD generator. Mild biapical pleural-parenchymal scarring. Vertebral arteries are patent and codominant. The right common carotid artery is patent. Severe atherosclerotic calcifications at the carotid bifurcation with severe, 70% stenosis at the car otid bulb. Remainder of the right internal carotid artery is patent. Left common carotid artery is patent. Moderate atherosclerotic changes at the left carotid bifurcation and carotid bulb with mild, less rob n 50% stenosis in the proximal left ICA. Brain: The vertebral and basilar arteries are patent. Vertebral arteries are codominant. Mild atherosclerotic calcifications within the carotid siphons. No significant stenosis or arterial occlusion is seen. Focal nodularity at the A2/A3 junction measuring 3.5 mm, refer to sagittal series 407 image 12, and a xial series 405 image 15. Otherwise, no other aneurysmal changes seen. IMPRESSION: NECK: 1. Severe atherosclerotic changes of the right carotid bifurcation with a 70%, severe stenosis of the right carotid bulb. 2. Mild, less than 50% proximal left ICA stenosis. 3. Tortuous arch vessels and aneurysmal aortic arch measuring up to 5.4 cm. Appropriate vascular surg chandra follow-up recommended for aneurysm surveillance. HEAD: 1. Unable to exclude a 3.5 mm MAYRA aneurysm at the A2/atrial junction. MR angiography can further eval uate. 2. Otherwise, no significant stenosis or arterial occlusion seen.
--- NOTE | 2019-12-29 16:47 | P.HPIM ---
History of Present Illness H&P Date: 12/29/19 Chief Complaint: Right leg weakness, right hand numbness History of presenting complaint: This is a very pleasant 79-year-old patient of Dr. Huffman. She also follows with neurologist Dr. Cobb. Chronic stable medical conditions include hypertension, hyperlipidemia, herniated disc in the back,. Has a prior history of stroke in 1998 with no deficits. Also has known history of: Dr. Suhas augustin Yohan bypass. Smokes about 3 cigarettes a day. No alcohol. Patient presented to yesterday evening she described a sensation of sticking sensation in her chest sleeping sensation in the right distal arm and the hand. She did feel a bit dizzy. She also felt a bit weak in the right leg and speech was a bit slurred. When I saw the patient this morning symptoms have improved but not entirely gone. No headaches no change in vision. No trouble swallowing. Neurology was consulted. Initial computed tomography scan of the brain was unremarkable. Review of systems: GEN.: None EYES: None HEENT: None NECK: None RESPIRATORY: None CARDIOVASCULAR: None GASTROINTESTINAL: None GENITOURINARY: None MUSCULOSKELETAL: Low back pain LYMPHATICS: None HEMATOLOGICAL: None PSYCHIATRY: None NEUROLOGICAL: As above Past medical history to include: Hypertension, hyperlipidemia or artery disease with a bypass in 2002 and a stent, bowel resection, AICD, herniated disc in lower back, anxiety depression Social history: . No alcohol. Smokes about 3 cigarettes a day for many years. Physical examination: VITAL SIGNS: 97.5, 62, 18, 126/69, 98% on room air GENERAL: [BMI 27.2, sitting up at the side of bed, comfortable. EYES: Pupils equal. Conjunctiva normal. HEENT: External appearance of nose and ears normal, oral cavity grossly normal. NECK: JVD not raised; masses not palpable. HEART: First and second heart sounds are normal; no edema. LUNGS: Respiratory rate normal; clear to auscultation. ABDOMEN: Soft, nontender, liver spleen not palpable, no masses palpable. PSYCH: Alert and oriented x3; mood and affect normal. NEUROLOGICAL: Cranial nerves grossly intact; no facial asymmetry, power and sensation grossly intact. LYMPHATICS: No lymph nodes palpable in the axilla and neck INVESTIGATIONS, reviewed in the clinical context: White count 10.3 hemoglobin 14.1 platelets 180 potassium 4.1 creatinine 0.91 Troponin I less than 0.012 EKG tracing personally reviewed by me-normal sinus rhythm abnormal T waves in V1 through V5 Chest x-ray film personally reviewed by me-lung melendez clear, unfortunately of the aorta Computed tomography scan of the brain-cerebral atrophy and chronic small vessel disease or multiple lacunar infarcts Assessment: -Possible TIA versus lacunar infarct. Clinically has no deficit right now but does not feel back to her baseline. -Essential hypertension -Hyperlipidemia -Coronary artery disease with a bypass in 2002 and stent -Anxiety depression not otherwise specified -Chronic herniated disc in the lower back Plan: Patient is to be continued on aspirin. Plavix will be added for 3 weeks. Patient is oriented to full dose of Lipitor at home. Neuro checks were in place. Neurology was consulted. Patient need a CT angios the brain and 2-D echocardiogram. Patient is very keen to go home. Add Lovenox for DVT prophylaxis. Resume home medications. Care was discussed with the patient. Past Medical History Past Medical History: CVA/TIA, Hyperlipidemia, Hypertension, Myocardial Infarction ([place]) Additional Past Medical History / Comment(s): "disc problems in back", stroke 1998-no left over effects, see Dr Hernandez H&P, hx polyps, fell December 2015-fx left hip Last Myocardial Infarction Date:: 2000 History of Any Multi-Drug Resistant Organisms: None Reported Past Surgical History: AICD, Appendectomy, Bowel Resection, Cholecystectomy, Coronary Bypass/CABG, Heart Catheterization With Stent, Hernia Repair, Orthopedic Surgery Additional Past Surgical History / Comment(s): CABG 2002, lt hip surgery after fx 2015, lesion removed from left arm, jan cataracts Past Anesthesia/Blood Transfusion Reactions: Motion Sickness Date of Last Stent Placement:: 2000 Type of Cardiac Device: AICD Device Placement Date:: 2002 Past Psychological History: Anxiety, Depression Smoking Status: Current every day smoker Past Alcohol Use History: None Reported Additional Past Alcohol Use History / Comment(s): smokes 3 cigarettes/day, has smoked for 50 yrs Past Drug Use History: None Reported - Past Family History Sister(s) Family Medical History: Cancer Father Family Medical History: Cancer Additional Family Medical History / Comment(s): . Mother Family Medical History: Cancer Additional Family Medical History / Comment(s): . Medications and Allergies Home Medications Medication Instructions Recorded Confirmed Type ALPRAZolam [Xanax] 0.25 mg PO TID PRN 06/06/15 12/29/19 History Cholecalciferol [Vitamin D3 (25 1,000 unit PO DAILY 06/06/15 12/29/19 History Mcg = 1000 Iu)] Atorvastatin [Lipitor] 80 mg PO HS 01/03/16 12/29/19 History Aspirin [Adult Low Dose Aspirin EC] 81 mg PO DAILY 11/25/16 12/29/19 History Carvedilol 25 mg PO BID 12/29/19 12/29/19 History Lisinopril [Zestril] 10 mg PO DAILY 12/29/19 12/29/19 History Allergies Allergy/AdvReac Type Severity Reaction Status Date / Time No Known Allergies Allergy Verified 12/29/19 08:03 Physical Exam Vitals: Vital Signs Temp Pulse Pulse Resp BP BP Pulse Ox 12/29/19 08:53 97.0 F L 60 16 122/61 95 12/29/19 03:19 61 18 12/29/19 03:06 97.6 F 61 18 117/63 96 12/29/19 02:16 60 18 126/69 98 12/29/19 00:34 97.5 F L 62 18 169/66 98 Intake and Output 12/28/19 12/29/19 12/29/19 22:59 06:59 14:59 Intake Total 10 Balance 10 Intake: IV 10 0.9 10 Other: Voiding Method Toilet Weight 71.8 kg Results CBC & Chem 7: 12/29/19 00:56 12/29/19 00:56 Labs: Abnormal Lab Results - Last 24 Hours (Table) 12/29/19 12/29/19 Range/Units 00:56 00:56 APTT 30.3 H (22.0-30.0) sec BUN 22 H (7-17) mg/dL Calcium 10.4 H (8.4-10.2) mg/dL Total Bilirubin 2.0 H (0.2-1.3) mg/dL AST 37 H (14-36) U/L Thrombosis Risk Factor Assmnt - Choose All That Apply Any of the Below Risk Factors Present?: No Other Risk Factors: Yes Each Risk Factor Represents 3 Points: Age 75 years or older Thrombosis Risk Factor Assessment Total Risk Factor Score: 3 Thrombosis Risk Factor Assessment Level: Moderate Risk
--- NOTE | 2019-12-29 17:20 | CONS ---
CONSULTATION DATE OF SERVICE: 12/29/2019. REFERRING PHYSICIAN: Dr. Pool HISTORY OF PRESENT ILLNESS: Thank you for allowing me to evaluate Mona Purvis who is a 79-year-old right- handed white female who presented to [facility] on 12/29/2019 for evaluation of symptoms which developed at 5 pm last night. The patient states that she was watching television and noted a "picky" sensation involving her right hand. She moved to try to alleviated it and the sensation persisted. When she attempted to get up, she noted the right lower extremity "did not want to work" and family felt that her speech was slurred. There was no associated facial droop, vertigo, diplopia or difficulty chewing/swallowing. She denied numbness involving the right side of the face or right lower extremity. The symptoms lasted approximately 2 hours and resolved. The patient is asymptomatic at this time. She was taking aspirin 81 mg daily at the time of this event. She does report a history of previous stroke in 1998 without residual deficits. She denies history of seizure. In the emergency room, the patient had a CT scan of brain completed without contrast, which demonstrated multiple old subcortical infarcts particularly in the right basal ganglia and left thomas radiata regions. Compared to previous CT of 03/16/2019, there was no significant interval change. ALLERGIES: No known drug allergies. HOME MEDICATIONS: Lisinopril, Coreg, Lipitor, aspirin 81 mg daily, Xanax, and vitamin D. PAST MEDICAL HISTORY: Hypertension, hyperlipidemia, coronary artery disease, previous myocardial infarction, depression, anxiety, and colonic polyps. The patient follows with Dr. Mo of Cardiology on outpatient basis. PAST SURGICAL HISTORY: AICD placement, coronary artery bypass surgery, coronary stent placement x3, left carotid endarterectomy, appendectomy, bowel resection for polyp (benign), hernia repair, left hip surgery, bilateral cataract extraction and tonsillectomy. SOCIAL HISTORY: Patient smokes 5 cigarettes per day and smoked for 50+ years. She denied alcohol or drug use. She is with 2 children and lives in house with her and son. FAMILY HISTORY: Patient's parents are . Mother had kidney and colon cancer and father had bowel cancer. The patient's brother had a primary brain malignancy. There is no family history of epilepsy, Parkinson's or other neurologic disease. REVIEW OF SYSTEMS: Fourteen systems are reviewed, noticeable as identified. The review of systems documented in history and physical. PHYSICAL EXAM: Upon arrival, the patient's room she was lying in bed, receptive to the examiner. Affect is normal. She is an accurate historian and appears of stated age. She has female apparent alopecia and is hard of hearing. VITAL SIGNS: Blood pressure is 130/70 with pulse of 60, respiratory rate 16, temperature is 98.0, weight is 71.8 kg on a 5 foot 4 inch frame. SKIN/EXTREMITIES: There is evidence of vein harvesting from the left lower extremity. HEAD AND NECK: No tenderness or signs of trauma. Neck is supple without meningeal signs. Arteries are nontender and no definite carotid bruits are noted, although there does appear to be radiation of cardiac murmur to the neck. HEART: Regular rate and rhythm with a systolic ejection murmur. HIGHER CORTICAL FUNCTION: MENTAL STATUS: Patient was alert, oriented to self. She knew she was in "[facility]. She knew the floor, city, year, month, day of week and could name the current president. She was able to name, repeat and read. There was no disorientation, finger-nose extinction to double simultaneous stimulation or dysarthria. Speech was fluent and she follows commands readily. CRANIAL NERVES 2 THROUGH 12: Pupils are post-surgical and reactive to light symmetrically. No afferent pupillary defect. Visual melendez are intact to confrontation and reflexes. No ptosis or facial movements were full. No nystagmus. V: Pinprick to light touch intact in all 3 divisions. Motor 5 intact. VII: No fixation to reinstate acutely reduced finger rub on the left. VIII, X: Palate was in midline. XI: Trapezius strength intact. XII: Tongue protruded midline without fasciculation or atrophy. MOTOR EXAMINATION: There is no pronator drift. Normal bulk and tone is normal. Major muscles with no infected wounds noted. Strength is 5/5 throughout. Sensory intact to pinprick to light touch in all extremities. Reflexes right side listed first. Biceps 1,1; brachioradialis 1,1; triceps 2, 2; patella 2 2, ankles 0,0, Plantar responses flexor bilaterally. Rosen's is absent. COORDINATION: Fthezt-ab-avra, ylec-ir-bcvv movements are intact. Rapid alternating movements are mildly slowed on the right with finger tapping. DIAGNOSTIC TESTING: The patient had a CT scan of the brain completed without contrast with results described above. LAB WORK: Demonstrates a white blood count of 10.3, hemoglobin of 14.1, platelet count 180. Sodium 138, potassium 4.1, BUN 22, with a creatinine of 0.91. INR 1.0, calcium 10.4, ALT 23, AST 37. Troponin negative. IMPRESSION: 1. Transient right hand numbness, right lower extremity weakness and dysarthria, likely secondary to a left subcortical TIA. Etiology may be secondary to small- vessel disease. The patient has evidence of prior subcortical infarcts on CT. Risk factors for stroke include hypertension, hyperlipidemia, coronary artery disease, previous stroke, tobacco abuse, and age. The patient was on aspirin 81 mg daily at the time of this event. 2. Multiple old subcortical infarcts including right basal ganglia and left thomas radiata on CT. 3. The patient is status post left carotid endarterectomy. 4. History of AICD placement. 5. Prerenal azotemia. 6. Medical problems including depression, anxiety, previous myocardial infarction, and colonic polyps. RECOMMENDATION: 1. I discussed my impression and plan with the patient and she expressed understanding. 2. For further evaluation, we will pursue CTA of the head/neck vessels, echocardiogram with bubble study, and the patient is maintained on telemetry. 3. We will interrogate the patient's implanted device (AICD). 4. Will add Plavix to aspirin x3 weeks, then aspirin can be discontinued unless an indication for anticoagulation is identified based on the workup described above. The patient is also maintained on Lipitor 80 mg daily. 5. Hydration per primary service. 6. Increase activity as tolerated. 7. Risk factor modification, which strongly recommend the patient quit smoking!!! 8. This is my last day on the neurology service. Please refer to the schedule for subsequent neurologic coverage. Thank you for the opportunity to participate in the care of your patient. MMODL / IJN: [id number] / EDUARDO
[2019-12-29] MEDS ORDERED: ATORVASTATIN 80 MG TAB PO SCH (21:00)
[2019-12-29 22:43] VITALS: PULSE 60
[2019-12-30] MEDS ORDERED: ASPIRIN 325 MG TAB PO SCH (01:52)
[2019-12-30 04:38] VITALS: RESP 16
[2019-12-30] MEDS: CARVEDILOL 12.5 MG TAB PO SCH (08:41)
[2019-12-30] MEDS: ASPIRIN 81 MG PO SCH (08:41)
[2019-12-30] MEDS: ENOXAPARIN 40 MG/0.4 ML SYRINGE SQ SCH (08:41)
[2019-12-30] MEDS ORDERED: CLOPIDOGREL 75 MG TAB PO SCH (09:00)
[2019-12-30] MEDS ORDERED: CHOLECALCIFEROL 1,000 UNIT TAB PO SCH (09:00)
[2019-12-30 09:33] LABS: Cholesterol 101 mg/dL (<200); HDL Cholesterol 56 mg/dL (40-60); LDL Cholesterol,Calculated 20 mg/dL (0-99); Triglycerides 123 mg/dL (<150)
[2019-12-30] MEDS: LISINOPRIL 10 MG TAB PO SCH (11:27)
[2019-12-30 11:35] VITALS: BP 99/68; TEMP 98.4
[2019-12-30 17:35] LABS: Hemoglobin A1C 5.7 % (4.0-6.0)
--- NOTE | 2019-12-30 18:46 | ECHOF ---
Referral Reason:tia MEASUREMENTS -------- HEIGHT: 162.6 cm WEIGHT: 72.1 kg BP: 96/60 RVIDd: 2.9 cm (< 3.3) IVSd: 1.1 cm (0.6 - 1.1) LVIDd: 5.9 cm (3.9 - 5.3) LVPWd: 1.1 cm (0.6 - 1.1) IVSs: 1.6 cm LVIDs: 4.8 cm LVPWs: 1.4 cm LAESV Index (A-L): 39.03 ml/m Ao Diam: 3.0 cm (2.0 - 3.7) AV Cusp: 1.4 cm (1.5 - 2.6) MV EXCURSION: 17.918 mm (> 18.000) MV EF SLOPE: 82 mm/s (70 - 150) EPSS: 0.8 cm MV E Carmelo: 1.10 m/s MV DecT: 169 ms MV A Carmelo: 1.04 m/s MV E/A Ratio: 1.06 AV maxP.85 mmHg AV meanP.41 mmHg AR PHT: 574 ms RAP: 5.00 mmHg RVSP: 37.00 mmHg FINDINGS -------- Sinus rhythm. Pacerwire seen in RV and RA. This was a technically difficult study with suboptimal apical views. The left ventricle is moderately dilated. There is borderline concentric left ventricular hypertrop hy. Overall left ventricular systolic function is moderate-severely impaired with, an EF between 30 - 35 %. Mitral Doppler inflow pattern suggests diastolic filling abnormality 30.77. Mid anterior LV wall motion is akinetic. Mid lateral LV wall motion is akinetic. Mid anteroseptal LV wall m otion is akinetic. Apical anterior LV wall motion is akinetic. Apical lateral LV wall motion is akinetic. Apical septum LV wall motion is akinetic. The right ventricle is normal in size. LA is moderately dilated 34-39 ml/m2 The right atrium was not well visualized. 5.0mg of Lumason was utilized for enhancement of images There is phom-tk-srmylrzo aortic regurgitation. There is acbnxxak-rb-trjsjm aortic stenosis present . Peak/mean gradient across the Aortic Valve is 41.85mmHg / 30.41mmHg. Mild mitral annular calcification present. Mild mitral regurgitation is present. Mild tricuspid regurgitation present. There is mild pulmonary hypertension. The right ventricular systolic pressure, as measured by Doppler, is 37.00mmHg. There is no pulmonic regurgitation present. The aortic root size is normal. Normal inferior vena cava with normal inspiratory collapse consistent with estimated right atrial pre ssure of 5 mmHg. There is no pericardial effusion. CONCLUSIONS -------- 1. Pacerwire seen in RV and RA. 2. The left ventricle is moderately dilated. 3. There is borderline concentric left ventricular hypertrophy. 4. Overall left ventricular systolic function is moderate-severely impaired with, an EF between 30 - 35 %. 5. Mitral Doppler inflow pattern suggest diastolic filling abnormality 30.77. 6. Mid anterior LV wall motion is akinetic. 7. Mid lateral LV wall motion is akinetic. 8. Mid anteroseptal LV wall motion is akinetic. 9. Apical anterior LV wall motion is akinetic. 10. Apical lateral LV wall motion is akinetic. 11. Apical septum LV wall motion is akinetic. 12. LA is moderately dilated 34-39 ml/m2 13. 5.0mg of Lumason was utilized for enhancement of images 14. There is dvjm-gh-sterabxj aortic regurgitation. 15. There is cstgboyx-pb-ydjnhz aortic stenosis present. 16. Peak/mean gradient across the Aortic Valve is 41.85mmHg / 30.41mmHg. 17. Mild mitral annular calcification present. 18. Mild mitral regurgitation is present. 19. Mild tricuspid regurgitation present. 20. There is mild pulmonary hypertension. 21. There is no pericardial effusion. TRANSITIONAL CARE LIAISON: Najma Street RDCS
--- NOTE | 2019-12-30 18:52 | P.DS ---
Providers Date of admission: 12/29/19 01:53 Expected date of discharge: 12/30/19 Attending physician: Deacon Pool Consults: 12/29/19 01:51 Consult Physician Urgent Consulting Provider: Suresh Woods Reason/Comments: TIA, right sided tingling and speech difficulty resolved WO[employer]ER Do you want consulting provider notified?: Yes, Notify in am [facility] Course: Chief Complaint: Right leg weakness, right hand numbness History of presenting complaint: This is a very pleasant 79-year-old patient of Dr. Huffman. She also follows with neurologist Dr. Cobb. Chronic stable medical conditions include hypertension, hyperlipidemia, herniated disc in the back,. Has a prior history of stroke in 1998 with no deficits. Also has known history of: Dr. Suhas augustin Yohan bypass. Smokes about 3 cigarettes a day. No alcohol. Patient presented to yesterday evening she described a sensation of sticking sensation in her chest sleeping sensation in the right distal arm and the hand. She did feel a bit dizzy. She also felt a bit weak in the right leg and speech was a bit slurred. When I saw the patient this morning symptoms have improved but not entirely gone. No headaches no change in vision. No trouble swallowing. Neurology was consulted. Initial computed tomography scan of the brain was unremarkable. admitted with TIA.computed tomography scan of the brain, CT angiogram.-right carotid artery stenosis 70%.. Today-feeling well. No residual symptoms.2-Dechocardiogram, results pending. discussed with patient. She'll follow with the neurologist Dr. Cobb. She will take Plavix additionally for 3 weeks in addition to the aspirin.also follow-up with Dr. [facility] which she follows with Dr. Jorge Mo. And follow with cardiothoracic surgery.this was discussed in detail with the patient. Discussion and discharge planning more than 35 minutes Consultation: from neurology Physical examination: VITAL SIGNS: 98.4, 60, 16, 99/68, 94% room air GENERAL: sitting up, comfortable EYES: Pupils equal. Conjunctiva normal. HEENT: External appearance of nose and ears normal, oral cavity grossly normal. NECK: JVD not raised; masses not palpable. HEART: First and second heart sounds are normal; no edema. LUNGS: Respiratory rate normal; clear to auscultation. ABDOMEN: Soft, nontender, liver spleen not palpable, no masses palpable. PSYCH: Alert and oriented x3; mood and affect normal. NEUROLOGICAL: Cranial nerves grossly intact; no facial asymmetry, power and sensation grossly intact. INVESTIGATIONS, reviewed in the clinical context: LDL 20 White count 10.3 hemoglobin 14.1 platelets 180 potassium 4.1 creatinine 0.91 Troponin I less than 0.012 EKG tracing personally reviewed by me-normal sinus rhythm abnormal T waves in V1 through V5 Chest x-ray film personally reviewed by me-lung melendez clear, unfortunately of the aorta Computed tomography scan of the brain-cerebral atrophy and chronic small vessel disease or multiple lacunar infarcts CT angiogram of head and neck-right carotid bulb 70% stenosis, less than 50% on the left side. 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 Assessment: -Possible TIA versus lacunar infarct. Clinically has no deficit right now but does not feel back to her baseline. 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 Alex Gross - outpatient -Right carotid artery stenosis 70%-to [facility] disposition: Home Patient Condition at Discharge: Stable Plan - Discharge Summary New Discharge Prescriptions: New Clopidogrel Bisulfate [Plavix] 75 mg PO DAILY #30 tab Continue ALPRAZolam [Xanax] 0.25 mg PO TID PRN PRN Reason: Anxiety Cholecalciferol [Vitamin D3 (25 Mcg = 1000 Iu)] 1,000 unit PO DAILY Atorvastatin [Lipitor] 80 mg PO HS Aspirin [Adult Low Dose Aspirin EC] 81 mg PO DAILY Lisinopril [Zestril] 10 mg PO DAILY Carvedilol 25 mg PO BID Discharge Medication List ALPRAZolam [Xanax] 0.25 mg PO TID PRN 06/06/15 [History] Cholecalciferol [Vitamin D3 (25 Mcg = 1000 Iu)] 1,000 unit PO DAILY 06/06/15 [History] Atorvastatin [Lipitor] 80 mg PO HS 01/03/16 [History] Aspirin [Adult Low Dose Aspirin EC] 81 mg PO DAILY 11/25/16 [History] Carvedilol 25 mg PO BID 12/29/19 [History] Lisinopril [Zestril] 10 mg PO DAILY 12/29/19 [History] Clopidogrel Bisulfate [Plavix] 75 mg PO DAILY #30 tab 12/30/19 [Rx] Follow up Appointment(s)/Referral(s): Nishant Huffman DO [Primary Care Provider] - 1-2 days (Pt to make appointment, as office is closed at time of discharge. Please notify office that the appoin tment is a follow up from the hospital.) Zeferino Cobb DO [STAFF PHYSICIAN] - 10 Days (Pt to make appointment, as office is closed at time of discharge. Please notify office that the appointment is a follow up from the hospital.) Patient Instructions/Handouts: Transient Ischemic Attack (DC) Activity/Diet/Wound Care/Special Instructions: dc after 2d echo - done Discharge Disposition: HOME SELF-CARE
== END 2019-12-30 14:55 | disposition home or self-care (01) ==
LOC: EC 00:32 → 3SCARD 01:53
PROVIDERS: ADMIT Hospitalist; ATTEND Hospitalist
DX: R20.0 Anesthesia of skin (principal); R20.2 Paresthesia of skin; R53.1 Weakness; R42 Dizziness and giddiness; R47.81 Slurred speech; R47.1 Dysarthria and anarthria; R79.89 Other specified abnormal findings of blood chemistry; I10 Essential (primary) hypertension; E78.5 Hyperlipidemia, unspecified; I25.10 Atherosclerotic heart disease of native coronary artery without angina pectoris; F41.9 Anxiety disorder, unspecified; F32.9 Major depressive disorder, single episode, unspecified; M51.9 Unspecified thoracic, thoracolumbar and lumbosacral intervertebral disc disorder; I71.2 Thoracic aortic aneurysm, without rupture; I65.21 Occlusion and stenosis of right carotid artery; I08.3 Combined rheumatic disorders of mitral, aortic and tricuspid valves; F17.210 Nicotine dependence, cigarettes, uncomplicated; I25.2 Old myocardial infarction; Z86.73 Personal history of transient ischemic attack (TIA), and cerebral infarction without residual deficits; Z79.899 Other long term (current) drug therapy; Z79.82 Long term (current) use of aspirin; Z86.010 Personal history of colon polyps; Z87.81 Personal history of (healed) traumatic fracture; Z91.81 History of falling; Z95.810 Presence of automatic (implantable) cardiac defibrillator; Z90.49 Acquired absence of other specified parts of digestive tract; Z95.1 Presence of aortocoronary bypass graft; Z95.5 Presence of coronary angioplasty implant and graft; Z98.890 Other specified postprocedural states; Z98.41 Cataract extraction status, right eye; Z98.42 Cataract extraction status, left eye; Z87.898 Personal history of other specified conditions; Z03.818 Encounter for observation for suspected exposure to other biological agents ruled out; Z80.51 Family history of malignant neoplasm of kidney; Z80.0 Family history of malignant neoplasm of digestive organs; Z80.8 Family history of malignant neoplasm of other organs or systems
CPT/HCPCS: 96372 ×2; 99285; 36415; 93005; 97161; 97165; 92610; 80061; 80053; 84484; 85025; 85610; 85730; 83036; 71046; 70496; 70450; 70498; G0378 ×2; C8929; U0003; J1650 ×2; Q9950; Q9967; 93306

== ENCOUNTER 2020-03-08 12:05 | Inpatient (IN) | payer MEDICARE, BC ==
--- NOTE | 2020-03-08 12:26 | ED ---
General Adult HPI - General Chief complaint: Weakness Stated complaint: Right-sided weakness Time Seen by Provider: 03/08/20 12:18 Source: patient, RN notes reviewed, old records reviewed Mode of arrival: wheelchair Limitations: no limitations - History of Present Illness Initial comments: Patient is a pleasant 79-year-old female presenting to the emergency Department with complaints of right-sided weakness. Onset of symptoms was after she went to the bathroom around 8:30 this morning. Patient had right-sided weakness of her arm and leg. Symptoms seemed to have improved. Patient does have some mild chronic weakness from previous stroke however this seems worse. During evaluation patient agrees that her strength is back to normal. No confusion. No speech problems. No headache. - Related Data Home Medications Medication Instructions Recorded Confirmed ALPRAZolam [Xanax] 0.25 mg PO TID PRN 06/06/15 12/29/19 Cholecalciferol [Vitamin D3 (25 1,000 unit PO DAILY 06/06/15 12/29/19 Mcg = 1000 Iu)] Atorvastatin [Lipitor] 80 mg PO HS 01/03/16 12/29/19 Aspirin [Adult Low Dose Aspirin EC] 81 mg PO DAILY 11/25/16 12/29/19 Lisinopril [Zestril] 10 mg PO DAILY 12/29/19 12/29/19 carvediloL [Carvedilol] 25 mg PO BID 12/29/19 12/29/19 Previous Rx's Medication Instructions Recorded Clopidogrel Bisulfate [Plavix] 75 mg PO DAILY #30 tab 12/30/19 Allergies Allergy/AdvReac Type Severity Reaction Status Date / Time No Known Allergies Allergy Verified 03/08/20 12:11 Review of Systems ROS Statement: Those systems with pertinent positive or pertinent negative responses have been documented in the HPI. ROS Other: All systems not noted in ROS Statement are negative. Constitutional: Denies: fever Eyes: Denies: eye pain ENT: Denies: ear pain Respiratory: Denies: cough Cardiovascular: Denies: chest pain Endocrine: Denies: fatigue Gastrointestinal: Denies: abdominal pain Genitourinary: Denies: dysuria Musculoskeletal: Denies: back pain Skin: Denies: rash Neurological: Reports: as per HPI, weakness. Denies: headache, numbness, paresthesias, confusion Past Medical History Past Medical History: CVA/TIA, Hyperlipidemia, Hypertension, Myocardial Infarction ([place]) Additional Past Medical History / Comment(s): "disc problems in back", stroke 1998-no left over effects, see Dr Hernandez H&P, hx polyps, fell December 2015-fx left hip Last Myocardial Infarction Date:: 2000 History of Any Multi-Drug Resistant Organisms: None Reported Past Surgical History: AICD, Appendectomy, Bowel Resection, Cholecystectomy, Coronary Bypass/CABG, Heart Catheterization With Stent, Hernia Repair, Orthopedic Surgery Additional Past Surgical History / Comment(s): CABG 2002, lt hip surgery after fx 2015, lesion removed from left arm, jan cataracts Past Anesthesia/Blood Transfusion Reactions: Motion Sickness Date of Last Stent Placement:: 2000 Type of Cardiac Device: AICD Device Placement Date:: 2002 Past Psychological History: Anxiety, Depression Smoking Status: Current every day smoker Past Alcohol Use History: None Reported Past Drug Use History: None Reported - Past Family History Sister(s) Family Medical History: Cancer Father Family Medical History: Cancer Additional Family Medical History / Comment(s): . Mother Family Medical History: Cancer Additional Family Medical History / Comment(s): . General Exam Limitations: no limitations General appearance: alert, in no apparent distress Head exam: Present: normocephalic Eye exam: Present: normal appearance, PERRL, EOMI. Absent: nystagmus ENT exam: Present: normal oropharynx Neck exam: Present: normal inspection Respiratory exam: Present: normal lung sounds bilaterally Cardiovascular Exam: Present: regular rate, normal rhythm GI/Abdominal exam: Present: soft. Absent: tenderness Extremities exam: Present: normal inspection Neurological exam: Present: alert, oriented X3, CN II-XII intact. Absent: motor sensory deficit Expanded Neurological exam: Present: protecting the airway Patient oriented to: Present: person, place, time Speech: Present: fluid speech Cranial nerves: EOM's Intact: Normal, Facial Sensation: Normal Sensory exam: Upper Extremity Light Touch: Normal, Lower Extremity Light Touch: Normal Motor strength exam: RUE: 5, LUE: 5, RLE: 5, LLE: 5 Eye Response: (4) open spontaneously Motor Response: (6) obeys commands Verbal Response: (5) oriented Psychiatric exam: Present: normal affect, normal mood Skin exam: Present: normal color Course Vital Signs 03/08/20 03/08/20 03/08/20 12:09 12:15 12:30 Temperature 98.1 F Pulse Rate 60 62 61 Respiratory 20 18 16 Rate Blood Pressure 120/78 136/71 132/70 O2 Sat by Pulse 98 98 98 Oximetry 03/08/20 03/08/20 12:45 13:00 Temperature Pulse Rate 60 64 Respiratory 16 18 Rate Blood Pressure 128/67 130/71 O2 Sat by Pulse 98 98 Oximetry - Reevaluation(s) Reevaluation #1: 03/08/20 12:43 Case was discussed with Dr. Christopher who will review the films and call back 03/08/20 12:50 Case again discussed with Dr. Christopher who did review films. He does recommend admission to our facility. He states he will follow up with patient after disch arge. EKG Findings - EKG Comments: EKG Findings:: H a paced rhythm with a rate of 60. TX 208. For screening AV block. QRS 102. QT 424. QTC 424. Left axis. Precordial T wave inversion. No acute ST change. Medical Decision Making - Medical Decision Making Patient reevaluated. Patient and family updated. Dr. Centeno has been paged for admission, covering for Dr. Pool, who admits for Dr. Huffman. Neurologist is also been paged. Case was discussed with Dr. motley, who will admit. Case was also discussed with Dr. salvador, who will evaluate patient and agrees with admission. He does also request MRI. MRI will be held at this time pending evaluation by Dr. sanderson secondary to patient does have pacemaker - Lab Data Result diagrams: 03/08/20 12:15 Lab Results 03/08/20 Range/Units 12:15 WBC 8.6 (3.8-10.6) k/uL RBC 4.14 (3.80-5.40) m/uL Hgb 13.4 (11.4-16.0) gm/dL Hct 40.1 (34.0-46.0) % MCV 96.9 (80.0-100.0) fL MCH 32.4 (25.0-35.0) pg MCHC 33.5 (31.0-37.0) g/dL RDW 13.0 (11.5-15.5) % Plt Count 188 (150-450) k/uL Neutrophils % 68 % Lymphocytes % 23 % Monocytes % 5 % Eosinophils % 2 % Basophils % 1 % Neutrophils # 5.8 (1.3-7.7) k/uL Lymphocytes # 2.0 (1.0-4.8) k/uL Monocytes # 0.5 (0-1.0) k/uL Eosinophils # 0.2 (0-0.7) k/uL Basophils # 0.1 (0-0.2) k/uL Disposition Clinical Impression: Transient cerebral ischemia Disposition: ADMITTED IP TO THIS HOSP Is patient prescribed a controlled substance at d/c from ED?: No Referrals: Nishant Huffman DO [Primary Care Provider] - 1-2 days Decision Time: 12:58
--- NOTE | 2020-03-08 12:47 | CT ---
EXAMINATION TYPE: CT brain wo con for TPA DATE OF EXAM: 03/08/2020 COMPARISON: 12/29/2019 HISTORY: Right sided weakness. History of stroke. Unenhanced CT of the brain was performed. The ventricles, basal cisterns and sulci overlying the cerebral convexities demonstrate mild enlargem ent. Remote deep white matter insults remain stable. There is no evidence for intracranial hemorrhage or sulcal effacement. There is decreased attenuation about the periventricular white matter and deep white matter of both c erebral hemispheres, compatible with chronic small vessel ischemia. Differential diagnosis does inclu de demyelination. No mass effects are seen.No midline shift. Osseous calvarium is intact. If symptoms persist consider MRI. IMPRESSION: 1. Age related atrophic and chronic small vessel ischemic change without acute intracranial process s een at this time.
[2020-03-08 13:00] LABS: Basophils # (A) 0.1 k/uL (0-0.2); Basophils % (A) 1 %; Eosinophils # (A) 0.2 k/uL (0-0.7); Eosinophils % (A) 2 %; HCT 40.1 % (34.0-46.0); HGB 13.4 gm/dL (11.4-16.0); Lymphocytes % (A) 23 %; MCH 32.4 pg (25.0-35.0); MCHC 33.5 g/dL (31.0-37.0); MCV 96.9 fL (80.0-100.0); Mean Platelet Volume 7.3; Monocytes # (A) 0.5 k/uL (0-1.0); Monocytes % (A) 5 %; Neutrophils # (A) 5.8 k/uL (1.3-7.7); Neutrophils % (A) 68 %; Platelet Count 188 k/uL (150-450); RBC 4.14 m/uL (3.80-5.40); WBC 8.6 k/uL (3.8-10.6)
[2020-03-08] MEDS ORDERED: ASPIRIN 325 MG TAB PO STA (13:01)
--- NOTE | 2020-03-08 13:02 | CT ---
EXAMINATION TYPE: CT angio head neck DATE OF EXAM: 03/08/2020 COMPARISON: 12/29/2019 HISTORY: Right sided weakness. History of stroke. CT DLP: 1433.6 mGycm CONTRAST: Performed with IV Contrast, patient injected with 65 mL of Isovue 370. Combination Contrast CTA cervical carotids and [place] of Mata CTA cervical carotids with 3-D recons truction Contrast CTA of the cervical carotids was performed 3-D reconstruction imaging obtained at a separate workstation. Right carotid system: Mild plaque is seen of the right common carotid artery. There is severe calcif ied plaque also noted at the carotid bulb and proximal ICA. Estimated diameter reduction is greater than 80%. ECA is patent. Right vertebral artery appears unremarkable. Left carotid system: Mild plaque is seen of the left common carotid artery. There is severe calcifie d plaque also noted at the carotid bulb and proximal ICA. Estimated diameter reduction of greater th an 70%. ECA is patent. Left vertebral artery appears unremarkable. Previously described ascending thoracic aortic aneurysm is partially imaged. IMPRESSION: 1. Severe calcified plaque bilaterally at the carotid bulbs and proximal ICAs right greater than left . Estimated diameter reduction right ICA is estimated at 80% and 70% on the left. CTA ione of Mata with 3-D reconstruction Contrast CTA of the ione of Mata was performed 3-D reconstruction imaging obtained at a separate workstation. Vertebrobasilar system as well as intracranial portions of the internal carotid arteries and their ma bowen tributaries are patent. I do not see evidence for sizable aneurysm or vascular malformation. Pl ease note MRI provides greater sensitivity and specificity. Visualized brain appears grossly unremar kable. IMPRESSION: 1. No significant abnormality.
[2020-03-08 13:11] LABS: Albumin 4.6 g/dL (3.5-5.0); Potassium 4.6 mmol/L (3.5-5.1); Total Bilirubin 1.8 mg/dL (0.2-1.3)
[2020-03-08 13:12] LABS: Partial Thromboplastin Time 30.7 sec (22.0-30.0); Prothrombin Time 10.1 sec (9.0-12.0)
[2020-03-08 13:20] LABS: Creatine Kinase 57 U/L (30-135)
[2020-03-08 13:34] LABS: Creatine Kinase MB 0.8 ng/mL (0.0-2.4); Troponin I <0.012 ng/mL (0.000-0.034)
[2020-03-08] MEDS: SODIUM CHLORIDE 0.9% 1,000 ML IV SCH ×2 (13:43→20:05)
--- NOTE | 2020-03-08 16:05 | XR ---
EXAMINATION TYPE: XR chest 2V DATE OF EXAM: 03/08/2020 COMPARISON: 12/29/2019 HISTORY: Shortness of breath TECHNIQUE: Frontal and lateral views of the chest are obtained. FINDINGS: Scattered senescent parenchymal changes noted. Hyperinflation compatible with COPD. No evidence for infiltrate. No evidence for atelectasis. Heart size is stable. Mediastinal structures are stable and grossly unremarkable. No evidence for hilar prominence. Degenerative changes dorsal spine. IMPRESSION: 1. No evidence for acute pulmonary disease.
[2020-03-08] MEDS ORDERED: ALPRAZolam 0.25 MG TAB PO PRN (17:42)
[2020-03-08] MEDS: carvediloL 12.5 MG TAB PO SCH (18:27)
[2020-03-08] MEDS: CHOLECALCIFEROL 1,000 UNIT TAB PO SCH (18:27)
--- NOTE | 2020-03-08 19:28 | P.HPIM ---
History of Present Illness This is a pleasant 79 years old female with past medical history of prior CVA, hyperlipidemia, hypertension, chronic back pain, status post AICD., Coronary artery disease status post bypass and CABG with stent placement., Anxiety and depression, cigarette smoker. Presents because of transient weakness in the right arm and leg. Patient states that this morning she was given up from her restroom when she noticed weakness in her right leg and right weakness and she needed help to move, it lasted for about 20 minutes, and resolved however about half an hour later it have another episode of same side weakness which also lasted 10-20 minutes, associated with mild headache and dizziness, she felt disoriented with some slurred speech and little blurry vision. Currently all her symptoms are resolved, with no weakness in upper or lower extremity, no blurry vision, no headache or dizziness or slurred speech. She smokes about 5 cigarettes per day, patient is counseled to quit, she agreeable she doesn't want nicotine patch. No alcohol or illicit drug. Her neurologist is Dr. Cobb, recently he place an event monitor for her for one month which was with okay results. Vitas looks stable. Labs include a CBC, INR, BMP, liver enzymes are unremarkable, troponin is negative with less than 0.012. Chest x-ray: No acute process. Brain CT is unremarkable. CTA of the head is also unremarkable. EKG showing atrial paced rhythm Review of Systems CONSTITUTIONAL: No fever, no malaise, no fatigue. HEENT: No recent visual problems or hearing problems. Denied any sore throat. CARDIOVASCULAR: No orthopnea, PND, no palpitations, no syncope. PULMONARY: No shortness of breath, no cough, no hemoptysis. GASTROINTESTINAL: No diarrhea, no nausea, no vomiting, no abdominal pain. Normoactive bowel sounds. NEUROLOGICAL: No headaches, no weakness, no numbness. HEMATOLOGICAL: Denies any bleeding or petechiae. GENITOURINARY: Denies any burning micturition, frequency, or urgency. MUSCULOSKELETAL/RHEUMATOLOGICAL: Denies any joint pain, swelling, or any muscle pain. ENDOCRINE: Denies any polyuria or polydipsia. Past Medical History Past Medical History: CVA/TIA, Hyperlipidemia, Hypertension, Myocardial Infarction ([place]) Additional Past Medical History / Comment(s): "disc problems in back", stroke 1998-no left over effects, see Dr Hernandez H&P, hx polyps, fell December 2015-fx left hip, "Mini stroke" December 2019. Seeing Dr Cobb for dizziness and eyes "hurt" Last Myocardial Infarction Date:: 2000 History of Any Multi-Drug Resistant Organisms: None Reported Past Surgical History: AICD, Appendectomy, Bowel Resection, Cholecystectomy, Coronary Bypass/CABG, Heart Catheterization With Stent, Hernia Repair, Orthopedic Surgery Additional Past Surgical History / Comment(s): CABG 2002, lt hip surgery after fx 2015, lesion removed from left arm, jan cataracts Past Anesthesia/Blood Transfusion Reactions: Motion Sickness Date of Last Stent Placement:: 2000 Type of Cardiac Device: AICD Device Placement Date:: 2002 Past Psychological History: Anxiety, Depression Smoking Status: Current every day smoker Past Alcohol Use History: None Reported Additional Past Alcohol Use History / Comment(s): smokes 5 cigarettes/day, has smoked for 50 yrs Past Drug Use History: None Reported Additional Drug Use History / Comment(s): . - Past Family History Sister(s) Family Medical History: Cancer Father Family Medical History: Cancer Additional Family Medical History / Comment(s): . Mother Family Medical History: Cancer Additional Family Medical History / Comment(s): . Medications and Allergies Home Medications Medication Instructions Recorded Confirmed Type ALPRAZolam [Xanax] 0.25 mg PO TID PRN 06/06/15 03/08/20 History Cholecalciferol [Vitamin D3 (25 1,000 unit PO DAILY@1800 06/06/15 03/08/20 History Mcg = 1000 Iu)] Atorvastatin [Lipitor] 80 mg PO HS 01/03/16 03/08/20 History Lisinopril [Zestril] 10 mg PO DAILY@1200 12/29/19 03/08/20 History carvediloL [Carvedilol] 25 mg PO BID@0800,1800 12/29/19 03/08/20 History Clopidogrel Bisulfate [Plavix] 75 mg PO DAILY #30 tab 12/30/19 03/08/20 Rx Cyanocobalamin (Vitamin B-12) 1,000 mcg PO DAILY@1400 03/08/20 03/08/20 History [Vitamin B-12] Allergies Allergy/AdvReac Type Severity Reaction Status Date / Time No Known Allergies Allergy Verified 03/08/20 13:24 Physical Exam Vitals: Vital Signs Temp Pulse Pulse Resp BP BP Pulse Ox 03/08/20 15:00 16 03/08/20 14:50 97.6 F 60 16 126/71 98 03/08/20 14:00 97.2 F L 62 18 134/68 98 03/08/20 13:48 97.0 F L 59 L 18 154/85 96 03/08/20 13:30 62 18 121/66 97 03/08/20 13:00 64 18 130/71 98 03/08/20 12:45 60 16 128/67 98 03/08/20 12:30 61 16 132/70 98 03/08/20 12:15 62 18 136/71 98 03/08/20 12:09 98.1 F 60 20 120/78 98 Intake and Output 03/08/20 03/08/20 03/08/20 06:59 14:59 22:59 Intake Total 400 Balance 400 Intake: IV 400 Sodium Chloride 0.9% 1, 400 000 ml @ 100 mls/hr IV . Q10H [facility] Rx#:[id number] Other: Voiding Method Toilet # Voids 1 1 Weight 72.5 kg 72.5 kg GENERAL: The patient is alert and oriented x3, not in any acute distress. Well developed, well nourished. HEENT: Pupils are round and equally reacting to light. EOMI. No scleral icterus. No conjunctival pallor. Normocephalic, atraumatic. No pharyngeal erythema. No thyromegaly. CARDIOVASCULAR: S1 and S2 present. No murmurs, rubs, or gallops. PULMONARY: Chest is clear to auscultation, no wheezing or crackles. ABDOMEN: Soft, nontender, nondistended, normoactive bowel sounds. No palpable o rganomegaly. MUSCULOSKELETAL: No joint swelling or deformity. EXTREMITIES: No cyanosis, clubbing, or pedal edema. NEUROLOGICAL: Gross neurological examination did not reveal any focal deficits. SKIN: No rashes. No petechiae Results CBC & Chem 7: 03/08/20 12:15 03/08/20 12:15 Labs: Abnormal Lab Results - Last 24 Hours (Table) 03/08/20 03/08/20 Range/Units 12:15 12:15 APTT 30.7 H (22.0-30.0) sec Glucose 110 H (74-99) mg/dL Total Bilirubin 1.8 H (0.2-1.3) mg/dL Thrombosis Risk Factor Assmnt - Choose All That Apply Any of the Below Risk Factors Present?: Yes Each Factor Represents 1 point: Obesity (BMI >25) Each Risk Factor Represents 3 Points: Age 75 years or older Thrombosis Risk Factor Assessment Total Risk Factor Score: 4 Thrombosis Risk Factor Assessment Level: Moderate Risk Assessment and Plan Assessment: TIA. Transient right hemiparesis, resolved now Hypertension Hyperlipidemia History of coronary artery disease status post CABG and stent placement and status post AICD Chronic low back pain Nicotine dependence Plan: This is a pleasant 79 years old female who presents with TIA with transient right-sided weakness. She was on Plavix at home, aspirin is added on 325 mg, continue with aspirin. Neurology consult. Labs and medication were reviewed.. Continue same treatment. Continue with symptomatic treatment. Resume home medication. Monitor lytes and vitals. DVT and GI prophylaxis. Further recommendations of the clinical course of the patient DVT prophylaxis: Subcutaneous heparin GI Prophylaxis: Pepcid PT/OT: Pending Prognosis is guarded
--- NOTE | 2020-03-08 20:04 | P.CNNES ---
History of Present Illness Consult date: 03/08/20 Requesting physician: Jone Lyons Reason for Consult: TIA History of Present Illness: Patient is a 79-year-old female came to the ER for complaints of right-sided weakness. Patient states that this morning she woke up at 8:30 and was fine. She walked to the bathroom, sat on the toilet seat. After passing urine, when she tried to get up, felt right arm and right leg was weak, did not want to work, had no strength. She hollered for her , who helped her get up. She notices mild slurring of speech. The symptoms lasted for about 15 minutes and then resolved. Shortly after symptoms reappeared, and again lasted for 15 minutes. Patient's brought her to the hospital. She had another episode at that time, lasted for about 10 minutes. She arrived in the ER at 12:05 PM. Patient's blood pressure was 120/78, pulse rate 60, temperature 98.1. Patient underwent CT head revealed age-related atrophic and chronic small vessel ischemic changes without acute intracranial process. CTA of head and neck showed severe calcified plaque bilaterally at the carotid bulbs and proximal ICAs right greater than left. Estimated dimetria reduction and right ICA is estimated 80% and 70% on the left. CTA of [place] normal. EKG shows atrial paced rhythm. T-wave abnormality, consider anterolateral ischemia. Chest x-ray showed no evidence for acute cardiopulmonary disease. 2-D echo from 12/30/2019 showed left ventricle moderately dilated. Borderline concentric LVH. EF is 30-35%. Multiple wall motion abnormalities/akinetic segments. Left atrium is moderately dilated. Patient on Plavix 75 mg and Lipitor 80 mg. Patient has history of stroke in 1994, while she was in [place], which affected her right arm and left leg as well as speech. She was in rehab for some time. Patient had another CVA in 2014. She had a milder stroke in December 2019. She used to be on aspirin 81 mg daily. Patient states she follows up with Dr. Cobb. She had recently undergone one month of event monitoring to rule out arrhythmia. It was taken off on 02/13/2020. Patient was recommended to stop aspirin and start Plavix 75 mg daily which she has been on for last about 3 weeks. She was also recommended vitamin B12. Patient has history of hypertension, denies diabetes. Patient has smoked 1-1-1/2 pack per day since age 23. Just in the last 1 year, she has cut back to 5 cigarettes per day but still smoking actively. Patient has history of left CEA in 2000, while she was in [place]. Review of Systems Patient complains of dizziness off and on for 1 year, her eyes hurt. Her neck hurts. When she turns her head [id number] or when she bends her head down, it clicks and pops. Patient denies any chest pain shortness of breath wheezing or cough. Denies abdominal pain nausea vomiting diarrhea. Past Medical History Past Medical History: CVA/TIA, Hyperlipidemia, Hypertension, Myocardial Infarction ([place]) Additional Past Medical History / Comment(s): "disc problems in back", stroke 1998-no left over effects, see Dr Hernandez H&P, hx polyps, fell December 2015-fx left hip, "Mini stroke" December 2019. Seeing Dr Cobb for dizziness and eyes "hurt" Last Myocardial Infarction Date:: 2000 History of Any Multi-Drug Resistant Organisms: None Reported Past Surgical History: AICD, Appendectomy, Bowel Resection, Cholecystectomy, Coronary Bypass/CABG, Heart Catheterization With Stent, Hernia Repair, Orthopedic Surgery Additional Past Surgical History / Comment(s): CABG 2002, lt hip surgery after fx 2015, lesion removed from left arm, jan cataracts Past Anesthesia/Blood Transfusion Reactions: Motion Sickness Date of Last Stent Placement:: 2000 Type of Cardiac Device: AICD Device Placement Date:: 2002 Past Psychological History: Anxiety, Depression Smoking Status: Current every day smoker Past Alcohol Use History: None Reported Additional Past Alcohol Use History / Comment(s): smokes 5 cigarettes/day, has smoked for 50 yrs Past Drug Use History: None Reported Additional Drug Use History / Comment(s): . - Past Family History Sister(s) Family Medical History: Cancer Father Family Medical History: Cancer Additional Family Medical History / Comment(s): . Mother Family Medical History: Cancer Additional Family Medical History / Comment(s): . Medications and Allergies Home Medications Medication Instructions Recorded Confirmed Type ALPRAZolam [Xanax] 0.25 mg PO TID PRN 06/06/15 03/08/20 History Cholecalciferol [Vitamin D3 (25 1,000 unit PO DAILY@1800 06/06/15 03/08/20 History Mcg = 1000 Iu)] Atorvastatin [Lipitor] 80 mg PO HS 01/03/16 03/08/20 History Lisinopril [Zestril] 10 mg PO DAILY@1200 12/29/19 03/08/20 History carvediloL [Carvedilol] 25 mg PO BID@0800,1800 12/29/19 03/08/20 History Clopidogrel Bisulfate [Plavix] 75 mg PO DAILY #30 tab 12/30/19 03/08/20 Rx Cyanocobalamin (Vitamin B-12) 1,000 mcg PO DAILY@1400 03/08/20 03/08/20 History [Vitamin B-12] Allergies Allergy/AdvReac Type Severity Reaction Status Date / Time No Known Allergies Allergy Verified 03/08/20 13:24 Physical Examination - Vital Signs Vital Signs: Vital Signs Temp Pulse Pulse Resp BP BP Pulse Ox 03/08/20 15:00 16 03/08/20 14:50 97.6 F 60 16 126/71 98 03/08/20 14:00 97.2 F L 62 18 134/68 98 03/08/20 13:48 97.0 F L 59 L 18 154/85 96 03/08/20 13:30 62 18 121/66 97 03/08/20 13:00 64 18 130/71 98 03/08/20 12:45 60 16 128/67 98 03/08/20 12:30 61 16 132/70 98 03/08/20 12:15 62 18 136/71 98 03/08/20 12:09 98.1 F 60 20 120/78 98 Intake and Output 03/08/20 03/08/20 03/08/20 06:59 14:59 22:59 Intake Total 400 Balance 400 Intake: IV 400 Sodium Chloride 0.9% 1, 400 000 ml @ 100 mls/hr IV . Q10H [facility] Rx#:[id number] Other: Voiding Method Toilet # Voids 1 Weight 72.5 kg 72.5 kg On examination patient is an elderly female in no acute distress. Patient is alert awake oriented to time place and person. Speech and language functions are normal. Attention and concentration fund of knowledge is adequate. On cranial examination pupils are round and reactive to light, visual melendez are full on confrontation, extraocular muscles are intact with no nystagmus. Face is symmetric, tongue protrudes to the midline. Palatal elevation and sensation normal. Hearing and shoulder shrug normal. On muscle strength testing there is no pronator drift and the strength is normal in arms and legs distally and proximally. Reflexes are 1+ and plantars downgoing. Sensory touch is equal with no neglect. No ataxia for [id number] testing. Tone and bulk of muscles normal. No obvious bruit, S1 and S2 audible, abdominal soft nontender chest is clear. No peripheral edema. Results - Laboratory Findings CBC and BMP: 03/08/20 12:15 03/08/20 12:15 Abnormal Lab Findings: Abnormal Labs 03/08/20 03/08/20 12:15 12:15 APTT 30.7 H Glucose 110 H Total Bilirubin 1.8 H Assessment and Plan Assessment: * Recurrent TIAs (x3), with right hemiparesis, resolving and 15 minutes. Patient's CTA of head and neck showed bilateral ICA stenosis, 70% on the left, 80% on the right. * Previous history of strokes and TIA. * Hypertension * Chronic tobacco use, still smokes. * History of left CEA in 2000. Plan: * Vascular surgical consultation for symptomatic re-stenosis of left ICA 70%. Patient had left CEA in 2000. Patient has 80% stenosis of the right ICA but is clinically asymptomatic at this time. * Agree with adding aspirin regimen to Plavix. * Patient strongly recommended about complete tobacco cessation. * Continue high-dose statins. * Hemoglobin A1c 5.7 on 12/30/2019. * 2-D echo showed no embolic source. * Neurology service not available over the weekend.
[2020-03-08] MEDS: ATORVASTATIN 80 MG TAB PO SCH (20:07)
[2020-03-09 04:15] LABS: Cholesterol 120 mg/dL (<200); HDL Cholesterol 50 mg/dL (40-60); LDL Cholesterol,Calculated 37 mg/dL (0-99); Triglycerides 165 mg/dL (<150)
[2020-03-09] MEDS: CLOPIDOGREL 75 MG TAB PO SCH (09:09)
[2020-03-09] MEDS: ASPIRIN 325 MG TAB PO SCH (09:09)
[2020-03-09] MEDS: carvediloL 12.5 MG TAB PO SCH ×2 (09:09→16:52)
--- NOTE | 2020-03-09 10:13 | P.GSCN ---
History of Present Illness Consult date: 03/09/20 History of present illness: The patient is a 79-year-old female with a past medical history of multiple CVA/TIA events, hyperlipidemia, hypertension and AICD placement, coronary artery disease status post bypass, tobacco abuse who presented to the hospital due to weakness of the right arm and leg. She has a history of a left carotid endarterectomy back in 2000. She states that there have been a few episodes of this since. Her weakness in her arm and leg were then she noticed when she got up, she also felt a little bit dizzy at that time it lasted for about half an hour and resolved with a repeat event following. Since her hospitalization she has not had any further issues. She sees a neurologist as an outpatient to did place an event monitor for 1 month, she states she is not sure but there was no commentary about abnormal events. She denies fevers, chills, nausea, vomiting chest pains or shortness of breath at this time Past Medical History Past Medical History: CVA/TIA, Hyperlipidemia, Hypertension, Myocardial Infarction ([place]) Additional Past Medical History / Comment(s): "disc problems in back", stroke 1998-no left over effects, see Dr Hernandez H&P, hx polyps, fell December 2015-fx left hip, "Mini stroke" December 2019. Seeing Dr Cobb for dizziness and eyes "hurt" Last Myocardial Infarction Date:: 2000 History of Any Multi-Drug Resistant Organisms: None Reported Past Surgical History: AICD, Appendectomy, Bowel Resection, Cholecystectomy, Coronary Bypass/CABG, Heart Catheterization With Stent, Hernia Repair, Orthopedic Surgery Additional Past Surgical History / Comment(s): CABG 2002, lt hip surgery after fx 2015, lesion removed from left arm, jan cataracts Past Anesthesia/Blood Transfusion Reactions: Motion Sickness Date of Last Stent Placement:: 2000 Type of Cardiac Device: AICD Device Placement Date:: 2002 Past Psychological History: Anxiety, Depression Smoking Status: Current every day smoker Past Alcohol Use History: None Reported Additional Past Alcohol Use History / Comment(s): smokes 5 cigarettes/day, has smoked for 50 yrs Past Drug Use History: None Reported Additional Drug Use History / Comment(s): . - Past Family History Sister(s) Family Medical History: Cancer Father Family Medical History: Cancer Additional Family Medical History / Comment(s): . Mother Family Medical History: Cancer Additional Family Medical History / Comment(s): . Medications and Allergies Home Medications Medication Instructions Recorded Confirmed Type ALPRAZolam [Xanax] 0.25 mg PO TID PRN 06/06/15 03/08/20 History Cholecalciferol [Vitamin D3 (25 1,000 unit PO DAILY@1800 06/06/15 03/08/20 History Mcg = 1000 Iu)] Atorvastatin [Lipitor] 80 mg PO HS 01/03/16 03/08/20 History Lisinopril [Zestril] 10 mg PO DAILY@1200 12/29/19 03/08/20 History carvediloL [Carvedilol] 25 mg PO BID@0800,1800 12/29/19 03/08/20 History Clopidogrel Bisulfate [Plavix] 75 mg PO DAILY #30 tab 12/30/19 03/08/20 Rx Cyanocobalamin (Vitamin B-12) 1,000 mcg PO DAILY@1400 03/08/20 03/08/20 History [Vitamin B-12] Allergies Allergy/AdvReac Type Severity Reaction Status Date / Time No Known Allergies Allergy Verified 03/08/20 13:24 Surgical - Exam Vital Signs Temp Pulse Resp BP Pulse Ox 98.1 F 60 20 120/78 98 03/08/20 12:09 03/08/20 12:09 03/08/20 12:09 03/08/20 12:09 03/08/20 12:09 Gen. is a pleasant cooperative female in no acute distress. HEENT is normocephalic, atraumatic, extraocular motion intact. Heart is regular at this time. Lungs are clear bilaterally. Abdomen is soft, nontender nondistended. She is palpable radial pulses bilaterally. Bilateral lower extremities are warm and dry. Cranial nerves II through XII grossly intact. No unilateral weakness. Normal mood and affect. Results CT angiogram of the neck is reviewed. There is approximately 80% stenosis of the right internal carotid artery, proximal a 70% stenosis of the left internal carotid artery - Labs 03/08/20 12:15 03/08/20 12:15 Abnormal Lab Results - Last 24 Hours (Table) 03/08/20 03/08/20 03/08/20 Range/Units 12:15 12:15 12:15 APTT 30.7 H (22.0-30.0) sec Glucose 110 H (74-99) mg/dL Total Bilirubin 1.8 H (0.2-1.3) mg/dL Triglycerides 165 H (<150) mg/dL Diabetes panel 03/08/20 03/08/20 Range/Units 12:15 12:15 Sodium 137 (137-145) mmol/L Potassium 4.6 (3.5-5.1) mmol/L Chloride 105 (98-107) mmol/L Carbon Dioxide 24 (22-30) mmol/L BUN 16 (7-17) mg/dL Creatinine 0.79 (0.52-1.04) mg/dL Glucose 110 H (74-99) mg/dL Calcium 10.0 (8.4-10.2) mg/dL AST 32 (14-36) U/L ALT 21 (4-34) U/L Alkaline Phosphatase 86 (38-126) U/L Total Protein 7.0 (6.3-8.2) g/dL Albumin 4.6 (3.5-5.0) g/dL Triglycerides 165 H (<150) mg/dL HDL Cholesterol 50 (40-60) mg/dL Calcium panel 03/08/20 Range/Units 12:15 Calcium 10.0 (8.4-10.2) mg/dL Albumin 4.6 (3.5-5.0) g/dL Pituitary panel 03/08/20 Range/Units 12:15 Sodium 137 (137-145) mmol/L Potassium 4.6 (3.5-5.1) mmol/L Chloride 105 (98-107) mmol/L Carbon Dioxide 24 (22-30) mmol/L BUN 16 (7-17) mg/dL Creatinine 0.79 (0.52-1.04) mg/dL Glucose 110 H (74-99) mg/dL Calcium 10.0 (8.4-10.2) mg/dL Adrenal panel 03/08/20 Range/Units 12:15 Sodium 137 (137-145) mmol/L Potassium 4.6 (3.5-5.1) mmol/L Chloride 105 (98-107) mmol/L Carbon Dioxide 24 (22-30) mmol/L BUN 16 (7-17) mg/dL Creatinine 0.79 (0.52-1.04) mg/dL Glucose 110 H (74-99) mg/dL Calcium 10.0 (8.4-10.2) mg/dL Total Bilirubin 1.8 H (0.2-1.3) mg/dL AST 32 (14-36) U/L ALT 21 (4-34) U/L Alkaline Phosphatase 86 (38-126) U/L Total Protein 7.0 (6.3-8.2) g/dL Albumin 4.6 (3.5-5.0) g/dL Assessment and Plan Assessment: #1 symptomatic left internal carotid artery restenosis #2 asymptomatic high-grade right internal carotid artery stenosis #3 dizziness #4 tobacco abuse Plan: Imaging is reviewed. Agree with the high-grade stenosis of the bilateral carotid artery system. We will order a ultrasound to further evaluate the plaquing as well as formulated disc of the CT angiogram for review for possible trans-carotid artery revascularization as her from a repair. We did discuss the multiple modalities of repair including a transfemoral stent, a trans-carotid stent as well as an open carotid endarterectomy. All risks and benefits were discussed. This time I do believe she would benefit from intervention. She needs to remain on aspirin, statin and Plavix medication. From my standpoint she can be discharged once medically stable and plan to schedule surgery in the near future as an outpatient
--- NOTE | 2020-03-09 11:46 | US ---
EXAMINATION TYPE: US carotid duplex BILAT DATE OF EXAM: 03/09/2020 COMPARISON: NONE CLINICAL HISTORY: Carotid artery stenosis. CTA showed stenosis, h/o left endarterectomy EXAM MEASUREMENTS: RIGHT: Peak Systolic Velocity (PSV) cm/sec ----- Right CCA: 44.2 ----- Right ICA: 122.1 ----- Right ECA: 67.7 ICA/CCA ratio: 2.8 RIGHT: End Diastole cm/sec ----- Right CCA: 8.5 ----- Right ICA: 31.7 ----- Right ECA: 6.6 LEFT: Peak Systolic Velocity (PSV) cm/sec ----- Left CCA: 73.1 ----- Left ICA: 74.7 ----- Left ECA: 96.2 ICA/CCA ratio: 1.0 LEFT: End Diastole cm/sec ----- Left CCA: 12.6 ----- Left ICA: 17.1 ----- Left ECA: 8.2 VERTEBRALS (direction of flow): Right Vertebral: Antegrade Left Vertebral: Antegrade Rhythm: Normal Heterogeneous plaque seen at bilaterally bulbs with proximal Right ICA stenosis IMPRESSION: no evidence for hemodynamically significant stenosis Criteria for Assigning % of Stenosis / Diameter reduction (Estimation based on the indirect measurements of the internal carotid artery velocities (ICA PSV). 1. Normal (no stenosis)=ICA PSV < 125 cm/s: ratio < 2.0: ICA EDV<40 cm/s. 2. Less than 50% stenosis=ICA PSV < 125 cm/s: ratio < 2.0: ICA EDV<40 cm/s. 3. 50 to 69% stenosis=ICA PSV of 125 to 230 cm/s: ration 2.0 ? 4.0: ICA EDV 40-100 cm/s. 4. Greater than 70% stenosis to near occlusion= ICA PSV > 230 cm/s: ratio > 4.0: ICA EDV > 100 cm/s. 5. Near occlusion= ICA PSV velocities may be low or undetectable: variable ratio and ICA EDV. 6. Total occlusion=unable to detect flow.
[2020-03-09] MEDS: lisinopriL 10 MG TAB PO SCH (11:47)
--- NOTE | 2020-03-09 13:01 | P.PN ---
Subjective This is a pleasant 79 years old female with past medical history of prior CVA, hyperlipidemia, hypertension, chronic back pain, status post AICD., Coronary artery disease status post bypass and CABG with stent placement., Anxiety and depression, cigarette smoker. Presents because of transient weakness in the right arm and leg. Patient states that this morning she was given up from her restroom when she noticed weakness in her right leg and right weakness and she needed help to move, it lasted for about 20 minutes, and resolved however about half an hour later it have another episode of same side weakness which also lasted 10-20 minutes, associated with mild headache and dizziness, she felt disoriented with some slurred speech and little blurry vision. Currently all her symptoms are resolved, with no weakness in upper or lower extremity, no blurry vision, no headache or dizziness or slurred speech. She smokes about 5 cigarettes per day, patient is counseled to quit, she agreeable she doesn't want nicotine patch. No alcohol or illicit drug. Her neurologist is Dr. Cobb, recently he place an event monitor for her for one month which was with okay results. Vitas looks stable. Labs include a CBC, INR, BMP, liver enzymes are unremarkable, troponin is negative with less than 0.012. Chest x-ray: No acute process. Brain CT is unremarkable. CTA of the head is also unremarkable. EKG showing atrial paced rhythm 02/2220 Patient is awake, her weakness in the right side is improved and is back to normal state today, no more blurred vision or slurred speech. Vascular surgery evaluated the patient and recommended to continue with aspirin, Plavix and statin and they cleared her for discharge and follow-up with outpatient for an endarterectomy Neurology still on the case however they're not available, no lid back on Wednesday . Patient agrees to states on Wednesday. Further workup is pending Review of Systems CONSTITUTIONAL: No fever, no malaise, no fatigue. HEENT: No recent visual problems or hearing problems. Denied any sore throat. CARDIOVASCULAR: No orthopnea, PND, no palpitations, no syncope. PULMONARY: No shortness of breath, no cough, no hemoptysis. GASTROINTESTINAL: No diarrhea, no nausea, no vomiting, no abdominal pain. Normoactive bowel sounds. NEUROLOGICAL: No headaches, no weakness, no numbness. HEMATOLOGICAL: Denies any bleeding or petechiae. GENITOURINARY: Denies any burning micturition, frequency, or urgency. MUSCULOSKELETAL/RHEUMATOLOGICAL: Denies any joint pain, swelling, or any muscle pain. ENDOCRINE: Denies any polyuria or polydipsia. Active Medications Generic Name Dose Route Start Last Admin Trade Name Freq PRN Reason Stop Dose Admin Alprazolam 0.25 mg 03/08/20 17:42 Xanax PO TID PRN Anxiety Aspirin 325 mg 03/09/20 09:00 03/09/20 09:09 Aspirin PO 325 mg DAILY AYLIN Administration Atorvastatin Calcium 80 mg 03/08/20 21:00 03/08/20 20:07 Lipitor PO 80 mg HS AYLIN Administration Carvedilol 25 mg 03/08/20 18:00 03/09/20 09:09 Coreg PO 25 mg BID@0800,1800 [facility] Administration Cholecalciferol 1,000 unit 03/08/20 18:00 03/08/20 18:27 Vitamin D3 (25 Mcg = 1000 Iu) PO 1,000 unit DAILY@1800 [facility] Administration Clopidogrel Bisulfate 75 mg 03/09/20 09:00 03/09/20 09:09 Plavix PO 75 mg DAILY AYLIN Administration Cyanocobalamin 1,000 mcg 03/09/20 14:00 Vitamin B-12 PO DAILY@1400 [facility] Sodium Chloride 1,000 mls @ 100 mls/hr 03/08/20 13:15 03/08/20 20:05 Saline 0.9% IV Not Given .Q10H [facility] Lisinopril 10 mg 03/09/20 12:00 03/09/20 11:47 Zestril PO 10 mg DAILY@1200 [facility] Administration Objective - Vital Signs Vital signs: Vital Signs Temp 97.8 F 03/09/20 08:24 Pulse 70 03/09/20 09:00 Resp 16 03/09/20 09:00 BP 121/61 03/09/20 08:24 Pulse Ox 94 L 03/09/20 08:24 Intake & Output 03/08/20 03/09/20 03/09/20 18:59 06:59 18:59 Intake Total 400 240 Balance 400 240 Weight 72.5 kg Intake: IV 400 Sodium Chloride 0.9% 1, 400 000 ml @ 100 mls/hr IV . Q10H [facility] Rx#:[id number] Oral 240 Other: Voiding Method Toilet Toilet Toilet # Voids 1 2 2 # Bowel Movements 0 - Exam GENERAL: The patient is alert and oriented x3, not in any acute distress. Well developed, well nourished. HEENT: Pupils are round and equally reacting to light. EOMI. No scleral icterus. No conjunctival pallor. Normocephalic, atraumatic. No pharyngeal erythema. No thyromegaly. CARDIOVASCULAR: S1 and S2 present. No murmurs, rubs, or gallops. PULMONARY: Chest is clear to auscultation, no wheezing or crackles. ABDOMEN: Soft, nontender, nondistended, normoactive bowel sounds. No palpable organomegaly. MUSCULOSKELETAL: No joint swelling or deformity. EXTREMITIES: No cyanosis, clubbing, or pedal edema. NEUROLOGICAL: Gross neurological examination did not reveal any focal deficits. SKIN: No rashes. no petechiae. - Labs CBC & Chem 7: 03/08/20 12:15 03/08/20 12:15 Labs: Abnormal Lab Results - Last 24 Hours (Table) 03/08/20 03/08/20 03/08/20 Range/Units 12:15 12:15 12:15 APTT 30.7 H (22.0-30.0) sec Glucose 110 H (74-99) mg/dL Total Bilirubin 1.8 H (0.2-1.3) mg/dL Triglycerides 165 H (<150) mg/dL Assessment and Plan Assessment: TIA. Transient right hemiparesis, resolved now Right ICA stenosis 70-80%, she needs outpatient endarterectomy for vascular surgery team Hypertension Hyperlipidemia History of coronary artery disease status post CABG and stent placement and status post AICD Chronic low back pain Nicotine dependence Plan: This is a pleasant 79 years old female who presents with TIA with transient right-sided weakness. She was on Plavix at home, aspirin is added on 325 mg, continue with aspirin. Neurology consult. Vascular surgery evaluated the patient and recommended to continue with aspirin, Plavix and statin and they cleared her for discharge and follow-up with outpatient for an endarterectomy Labs and medication were reviewed.. Continue same treatment. Continue with symptomatic treatment. Resume home medication. Monitor lytes and vitals. DVT and GI prophylaxis. Further recommendations of the clinical course of the pat ient DVT prophylaxis: Subcutaneous heparin GI Prophylaxis: Pepcid PT/OT: Pending Prognosis is guarded
[2020-03-09] MEDS: CYANOCOBALAMIN 500 MCG TAB PO SCH (16:52)
[2020-03-09] MEDS: CHOLECALCIFEROL 1,000 UNIT TAB PO SCH (16:52)
[2020-03-09] MEDS: ATORVASTATIN 80 MG TAB PO SCH (20:11)
[2020-03-09] MEDS: SODIUM CHLORIDE 0.9% 1,000 ML IV SCH ×2 (20:48→22:31)
[2020-03-09] MEDS: HEPARIN SODIUM,PORCINE 5,000 UNIT/ML 1 ML VIAL SQ SCH (22:15)
[2020-03-10] MEDS: SODIUM CHLORIDE 0.9% 1,000 ML IV SCH (05:10)
[2020-03-10 08:41] VITALS: PULSE 60
[2020-03-10] MEDS ORDERED: FAMOTIDINE 20 MG/2 ML VIAL IV SCH (09:00)
[2020-03-10] MEDS: carvediloL 12.5 MG TAB PO SCH ×2 (09:11→17:30)
[2020-03-10] MEDS: HEPARIN SODIUM,PORCINE 5,000 UNIT/ML 1 ML VIAL SQ SCH ×2 (09:11→20:46)
[2020-03-10] MEDS: CLOPIDOGREL 75 MG TAB PO SCH (09:11)
[2020-03-10] MEDS: ASPIRIN 325 MG TAB PO SCH (09:11)
--- NOTE | 2020-03-10 10:31 | P.PN ---
Subjective This is a pleasant 79 years old female with past medical history of prior CVA, hyperlipidemia, hypertension, chronic back pain, status post AICD., Coronary artery disease status post bypass and CABG with stent placement., Anxiety and depression, cigarette smoker. Presents because of transient weakness in the right arm and leg. Patient states that this morning she was given up from her restroom when she noticed weakness in her right leg and right weakness and she needed help to move, it lasted for about 20 minutes, and resolved however about half an hour later it have another episode of same side weakness which also lasted 10-20 minutes, associated with mild headache and dizziness, she felt disoriented with some slurred speech and little blurry vision. Currently all her symptoms are resolved, with no weakness in upper or lower extremity, no blurry vision, no headache or dizziness or slurred speech. She smokes about 5 cigarettes per day, patient is counseled to quit, she agreeable she doesn't want nicotine patch. No alcohol or illicit drug. Her neurologist is Dr. Cobb, recently he place an event monitor for her for one month which was with okay results. Vitas looks stable. Labs include a CBC, INR, BMP, liver enzymes are unremarkable, troponin is negative with less than 0.012. Chest x-ray: No acute process. Brain CT is unremarkable. CTA of the head is also unremarkable. EKG showing atrial paced rhythm 03/09/20 Patient is awake, her weakness in the right side is improved and is back to normal state today, no more blurred vision or slurred speech. Vascular surgery evaluated the patient and recommended to continue with aspirin, Plavix and statin and they cleared her for discharge and follow-up with outpatient for an endarterectomy Neurology still on the case however they're not available, no lid back on . Patient agrees to states on Wednesday. Further workup is pending 03/10/2020 Patient is awake and alert, no more weakness in her right upper and lower extremity, no numbness either. Carotid duplex was negative, however Dr. Vann recommended patient to follow up outpatient for transfer carotid artery revascularization repair. Patient feeling some dizziness when she gets up, we will check orthostatic vitals Objective - Vital Signs Vital signs: Vital Signs Temp 97.8 F 03/10/20 08:40 Pulse 60 03/10/20 09:00 Resp 18 03/10/20 09:00 BP 111/63 03/10/20 08:40 Pulse Ox 96 03/10/20 08:40 Intake & Output 03/09/20 03/10/20 03/10/20 18:59 06:59 18:59 Intake Total 600 240 Balance 600 240 Intake: Oral 600 240 Other: Voiding Method Toilet Toilet Toilet # Voids 2 1 1 - Exam GENERAL: The patient is alert and oriented x3, not in any acute distress. Well developed, well nourished. HEENT: Pupils are round and equally reacting to light. EOMI. No scleral icterus. No conjunctival pallor. Normocephalic, atraumatic. No pharyngeal erythema. No t hyromegaly. CARDIOVASCULAR: S1 and S2 present. No murmurs, rubs, or gallops. PULMONARY: Chest is clear to auscultation, no wheezing or crackles. ABDOMEN: Soft, nontender, nondistended, normoactive bowel sounds. No palpable organomegaly. MUSCULOSKELETAL: No joint swelling or deformity. EXTREMITIES: No cyanosis, clubbing, or pedal edema. NEUROLOGICAL: Gross neurological examination did not reveal any focal deficits. SKIN: No rashes. no petechiae. - Labs CBC & Chem 7: 03/08/20 12:15 03/08/20 12:15 Assessment and Plan Assessment: TIA. Transient right hemiparesis, resolved now Right ICA stenosis 70-80%, she needs outpatient endarterectomy for vascular surgery team Hypertension Hyperlipidemia History of coronary artery disease status post CABG and stent placement and status post AICD Chronic low back pain Nicotine dependence Plan: This is a pleasant 79 years old female who presents with TIA with transient right-sided weakness. She was on Plavix at home, aspirin is added on 325 mg, continue with aspirin. Neurology consult. Vascular surgery evaluated the patient and recommended to continue with aspirin, Plavix and statin and they cleared her for discharge and follow-up with outpatient for an endarterectomy Labs and medication were reviewed.. Continue same treatment. Continue with symptomatic treatment. Resume home medication. Monitor lytes and vitals. DVT and GI prophylaxis. Further recommendations of the clinical course of the patient DVT prophylaxis: Subcutaneous heparin GI Prophylaxis: Pepcid PT/OT: Pending Prognosis is guarded
[2020-03-10] MEDS: lisinopriL 10 MG TAB PO SCH (12:11)
[2020-03-10] MEDS: CYANOCOBALAMIN 500 MCG TAB PO SCH (15:29)
[2020-03-10] MEDS: CHOLECALCIFEROL 1,000 UNIT TAB PO SCH (17:30)
[2020-03-10] MEDS: FAMOTIDINE 20 MG TAB PO SCH (20:46)
[2020-03-10] MEDS: ATORVASTATIN 80 MG TAB PO SCH (20:46)
[2020-03-11 07:42] VITALS: BP 103/57; RESP 16; TEMP 97.8
[2020-03-11] MEDS: ASPIRIN 325 MG TAB PO SCH (08:05)
[2020-03-11] MEDS: HEPARIN SODIUM,PORCINE 5,000 UNIT/ML 1 ML VIAL SQ SCH (08:05)
[2020-03-11] MEDS: carvediloL 12.5 MG TAB PO SCH (08:05)
[2020-03-11] MEDS: CLOPIDOGREL 75 MG TAB PO SCH (08:05)
[2020-03-11] MEDS: FAMOTIDINE 20 MG TAB PO SCH (08:05)
[2020-03-11] MEDS: lisinopriL 10 MG TAB PO SCH (11:22)
--- NOTE | 2020-03-11 12:15 | P.PN ---
Subjective Progress Note Date: 03/11/20 Patient seen and examined at the bedside. Patient states she is still feeling some dizziness, especially with positional changes. Patient has been following in the office with Dr. Cobb for history of vertigo, as well as outpatient physical therapy prior to [place] pandemic. Patient otherwise has no complaints, hence no acute distress or changes through the night. Patient underwent carotid ultrasound which has discordant findings from the CT angiogram. Carotid ultrasound shows a right ICA of 122 and a left ICA of 74 without any significant internal carotid artery stenosis bilaterally. The left vertebral shows antegrade flow. Heterogeneous plaque seen at bilateral knee bulbs with proximal right ICA stenosis however no evidence for hemodynamically significant stenosis. Objective - Vital Signs Vital signs: Vital Signs Temp 97.8 F 03/11/20 07:40 Pulse 60 03/11/20 07:40 Resp 16 03/11/20 09:00 BP 103/57 03/11/20 07:40 Pulse Ox 95 03/11/20 07:40 Intake & Output 03/10/20 03/11/20 03/11/20 18:59 06:59 18:59 Intake Total 880 240 Balance 880 240 Intake: Oral 880 240 Other: Voiding Method Toilet Toilet Toilet # Voids 5 3 1 - Exam General appearance: The patient is alert, oriented, in no acute distress. HET: Head is normocephalic and atraumatic. Neck: Supple Heart: S1 S2. Regular rate and rhythm. Lungs: No crackles or wheezes are heard. Extremities: Normal skin color and turgor. No cyanosis, rash, ulceration, clubbing, or edema. Radial pulses are 2/4 bilaterally. Neurological: No focal deficits. Strength and sensation are grossly intact. - Labs CBC & Chem 7: 03/08/20 12:15 03/08/20 12:15 Assessment and Plan Assessment: #1 symptomatic left internal carotid artery restenosis #2 asymptomatic high-grade right internal carotid artery stenosis #3 dizziness #4 tobacco abuse Plan: A copy of the CT angiogram was downloaded to a CD and will be reviewed by Dr. Vann or possible trans-carotid artery revascularization. Patient to remain on aspirin, statin, and Plavix. Patient may be discharged home once medically stable and plan to schedule surgery in the near future as an outpatient The above dictated assessment and findings were discussed with Dr. Vann. The impression and plan of care have been directed as dictated.
--- NOTE | 2020-03-11 13:28 | P.PN ---
Subjective Progress Note Date: 03/11/20 Patient states she is feeling fine. No further TIAs. Wants to go home. Objective - Vital Signs Vital signs: Vital Signs Temp 97.8 F 03/11/20 07:40 Pulse 60 03/11/20 07:40 Resp 16 03/11/20 09:00 BP 103/57 03/11/20 07:40 Pulse Ox 95 03/11/20 07:40 Intake & Output 03/10/20 03/11/20 03/11/20 18:59 06:59 18:59 Intake Total 880 480 Balance 880 480 Intake: Oral 880 480 Other: Voiding Method Toilet Toilet Toilet # Voids 5 3 1 - Exam Mental status, speech and language functions are normal. Cranial nerves are normal. Face is symmetric. Visual melendez are full. Muscle strength is normal. No pronator drift. No ataxia. Tone and bulk of muscles normal. Patient walked fairly steadily in the room. - Labs CBC & Chem 7: 03/08/20 12:15 03/08/20 12:15 Assessment and Plan Assessment: * Recurrent TIAs (x3), with right hemiparesis, resolving and 15 minutes. Julisa interiano's CTA of head and neck showed bilateral ICA stenosis, 70% on the left, 80% on the right. * Previous history of strokes and TIA. * Hypertension * Chronic tobacco use, still smokes. * History of left CEA in 2000. Plan: * Vascular surgical input appreciated. Patient had left CEA in 2000. * CTA of neck showed 80% stenosis on the right and 70% on the left. However carotid Doppler from 03/09/2020 showed no evidence for hemodynamically significant stenosis. Heterogenous plaque seen bilaterally at the bulbs with proximal right ICA stenosis. * Continue dual antiplatelet medication with aspirin and Plavix. * Patient strongly recommended about complete tobacco cessation. * Continue high-dose statins. * Hemoglobin A1c 5.7 on 12/30/2019. * 2-D echo showed no embolic source. * Patient will be discharged and will follow-up with the screw surgery as an outpatient.
--- NOTE | 2020-03-13 13:06 | CDI ---
Documentation Clarification Form Date: 03/13/20 From: Cele Valdez Phone: If you have a question about this query, please contact Sherine Remy, [employer] at [phone] between 8am and 5pm. Admit Date: 03/08/20 Discharge Date:03/11/20 Patient Name: Mona Purvis Visit Number: [id number] ATTENTION: The Clinical Documentation Specialists (CDI) and [facility] Coding Staff appreciate your assistance in clarifying documentation. Please respond to the clarification below the line at the bottom and electronically sign. The CDI & [facility] Coding staff will review the response and follow-up if needed. Please note: Queries are made part of the Legal Health Record. If you have any questions, please contact the author of this message via ITS. Dear Dr. Sheffield TIA is documented as a diagnosis in the H&P, and your progress notes. Dr. Vann documents symptomatic left internal carotid artery restenosis and asymptomatic high-grade right internal carotid artery stenosis. Patient history/risk factors: Clinical indicators: Right sided weakness slurred speech both resolved CT head: Age related atrophic and chronic small vessel ischemic change without acute intracranial process. CT Angio Head Neck: No significant abnormality. Carotid US: Per Dr. Vann's 03/11 progress note, ultrasound has discordant findings from the CT angiogram, shows right ICA of 122 and left ICA of 74 without any significant internal carotid artery stenosis bilaterally. The left vertebral shows antegrade flow. Heterogenous plaque seen at bilateral knee bulbs with proximal right ICA stenosis however no evidence for hemodynamically significant stenosis Echo: 2D echo showed no embolic source Treatment: Patient to remain on statin and Plavix. Aspirin 325 mg added Consult: Vascular surgery - symptomatic left internal carotid artery restenosis and asymptomatic high-grade right internal carotid artery stenosis. In your professional opinion, please specify underlying etiology of the transient ischemic attack: Carotid Sinus Syncope Carotid Stenosis Vertebro-Basilar Artery Syndrome Other (please specify): Etiology unknown or Unable to determine Unable to determine MTDD
--- NOTE | 2020-03-13 20:05 | P.DS ---
Providers Date of admission: 03/10/20 12:04 Expected date of discharge: 03/11/20 Attending physician: Deacon Pool Consults: 03/08/20 13:01 Consult Physician Urgent Consulting Provider: Suzanna Graham Consult Reason/Comments: tia Do you want consulting provider notified?: Yes 03/08/20 22:47 Consult Physician Routine Consulting Provider: Eliseo Gan Consult Reason/Comments: Carotid stenosis Do you want consulting provider notified?: Yes, Notify in am Primary care physician: [facility] Course: Chief Complaint: Right leg weakness, right hand numbness History of presenting complaint: This is a very pleasant 79-year-old patient of Dr. Huffman. She also follows with neurologist Dr. Cobb. Chronic stable medical conditions include hypertension, hyperlipidemia, herniated disc in the back,. Has a prior history of stroke in 1998 with no deficits. Also has known history of coronary artery bypass. Was here in December 2019 with a TIA.CT angiogram.-right carotid artery stenosis 70%. Was to follow-up with Dr. [facility]. Patient now presented with right arm and right leg weakness. While slurring of speech. Symptoms resolved in about 10 minutes. Computed tomography scan of the brain showed age-related atrophic changes. CTA revealed 80-70% reduced diameter of the IC on the left. Carotid Doppler no hemodynamically significant stenosis. Seen by Dr. Maria Isabel Vann. We'll follow as an outpatient. Patient to continue with antiplatelet agents. Patient also to follow-up with her own neurologist Dr. Cobb Consultation: Dr. Kapoor from neurology Physical examination: VITAL SIGNS: 97.8, 60, 16, 103/57, 95% room air GENERAL: sitting up, comfortable EYES: Pupils equal. Conjunctiva normal. NECK: JVD not raised; masses not palpable. HEART: First and second heart sounds are normal; no edema. LUNGS: Respiratory rate normal; clear to auscultation. ABDOMEN: Soft, nontender, liver spleen not palpable, no masses palpable. PSYCH: Alert and oriented x3; mood and affect normal. NEUROLOGICAL: Cranial nerves grossly intact; no facial asymmetry, power and sensation grossly intact. INVESTIGATIONS, reviewed in the clinical context: White count 8.6 hemoglobin 13.4 potassium 4.6 LDL 37 Computed tomography scan of the brain showed age-related atrophic changes. CTA revealed 80-70% reduced diameter of the IC on the left. Carotid Doppler no hemodynamically significant stenosis. Assessment: -TIA. 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 Alex Gross - outpatient -Internal carotid artery stenosis on the left 70-80% disposition: Home Patient Condition at Discharge: Stable Plan - Discharge Summary New Discharge Prescriptions: New Aspirin 81 mg PO DAILY #30 chewable Famotidine [Pepcid] 20 mg PO Q12HR #60 tab Continue ALPRAZolam [Xanax] 0.25 mg PO TID PRN PRN Reason: Anxiety Cholecalciferol [Vitamin D3 (25 Mcg = 1000 Iu)] 1,000 unit PO DAILY@1800 Atorvastatin [Lipitor] 80 mg PO HS Lisinopril [Zestril] 10 mg PO DAILY@1200 carvediloL [Carvedilol] 25 mg PO BID@0800,1800 Clopidogrel Bisulfate [Plavix] 75 mg PO DAILY #30 tab Cyanocobalamin (Vitamin B-12) [Vitamin B-12] 1,000 mcg PO DAILY@1400 Discharge Medication List ALPRAZolam [Xanax] 0.25 mg PO TID PRN 06/06/15 [History] Cholecalciferol [Vitamin D3 (25 Mcg = 1000 Iu)] 1,000 unit PO DAILY@1800 06/06/15 [History] Atorvastatin [Lipitor] 80 mg PO HS 01/03/16 [History] Lisinopril [Zestril] 10 mg PO DAILY@1200 12/29/19 [History] carvediloL [Carvedilol] 25 mg PO BID@0800,1800 12/29/19 [History] Clopidogrel Bisulfate [Plavix] 75 mg PO DAILY #30 tab 12/30/19 [Rx] Cyanocobalamin (Vitamin B-12) [Vitamin B-12] 1,000 mcg PO DAILY@1400 03/08/20 [History] Aspirin 81 mg PO DAILY #30 chewable 03/11/20 [Rx] Famotidine [Pepcid] 20 mg PO Q12HR #60 tab 03/11/20 [Rx] Follow up Appointment(s)/Referral(s): Nishant Huffman DO [Primary Care Provider] - 1-2 days (Dr. Huffman office to call for follow up appointment) Maria Isabel Vann DO [STAFF PHYSICIAN] - 04/03/20 10:00 am ([facility] [phone] ) Patient Instructions/Handouts: Transient Ischemic Attack (DC), Transient Ischemic Attack (GEN) Discharge Disposition: HOME SELF-CARE
[2020-03-15 07:53] LABS: Glucose,Whole Blood 116 mg/dL (75-99)
== END 2020-03-11 12:45 | disposition home or self-care (01) | DRG 69 ==
LOC: EC 12:05 → 3NCARDOBS 13:01 → OBSVTOIN 03-10 12:04
PROVIDERS: ADMIT Hospitalist; ATTEND Hospitalist
DX: G45.9 Transient cerebral ischemic attack, unspecified (principal); I65.23 Occlusion and stenosis of bilateral carotid arteries; E78.5 Hyperlipidemia, unspecified; F17.210 Nicotine dependence, cigarettes, uncomplicated; F32.9 Major depressive disorder, single episode, unspecified; F41.9 Anxiety disorder, unspecified; G89.29 Other chronic pain; I10 Essential (primary) hypertension; I25.10 Atherosclerotic heart disease of native coronary artery without angina pectoris; I25.2 Old myocardial infarction; M54.5 Low back pain; Z79.02 Long term (current) use of antithrombotics/antiplatelets; Z79.82 Long term (current) use of aspirin; Z79.899 Other long term (current) drug therapy; Z95.810 Presence of automatic (implantable) cardiac defibrillator; Z95.5 Presence of coronary angioplasty implant and graft; Z95.1 Presence of aortocoronary bypass graft; Z86.73 Personal history of transient ischemic attack (TIA), and cerebral infarction without residual deficits; Z90.49 Acquired absence of other specified parts of digestive tract; Z98.42 Cataract extraction status, left eye; Z98.41 Cataract extraction status, right eye; Z80.9 Family history of malignant neoplasm, unspecified
CPT/HCPCS: 36415; 70450; 70496; 70498; 71046; 80053; 80061; 82550; 82553; 84484; 85025; 85610; 85730; 93005; 93880; 96360; 99285

== ENCOUNTER → 2020-04-09 | Day surgery (SDC) | payer MEDICARE, BC ==
[2020-04-04 16:05] VITALS: BMI 26.6
[~2020-04-09] MED LIST changes: +ASPIRIN 325 MG TAB PO STA; +IOPAMIDOL-250 100ML BTL INTRAARTER ONE; -LACTATED RINGERS 1,000 ML IV SCH; +LIDOCAINE 1% INJ 10MG/ML (20 ML MDV) SQ ONE; +MIDAZOLAM 2 MG/2 ML VIAL IV ONE; -SODIUM CHLORIDE 0.9% 1,000 ML IV SCH; +SODIUM CHLORIDE 0.9% 1,000 ML in EMPTY BAG 1 BAG IV ONE; -ceFAZolin 1,000 MG in SODIUM CHLORIDE 0.9% IRRIGATIO 250 ML IRRIGATION ONE; -ceFAZolin 2 GM in SODIUM CHLORIDE 0.9% 100 ML IVPB ONE
[2020-04-09 08:29] VITALS: RESP 18
--- NOTE | 2020-04-09 10:47 | P.OP ---
Date of Procedure: 04/09/20 Description of Procedure: Preoperative diagnosis: [Carotid stenosis, TIA, previous left carotid endarterectomy, imaging discordance] Postoperative diagnosis: Same Procedure: [#1 ultrasound-guided right common femoral artery access #2 aortic arch angiogram #3 selective right brachiocephalic angiogram, second order #4 selective left carotid angiogram, second order #5 selective left subclavian angiogram, second order #6 40 minutes moderate conscious sedation] Surgeon: Maria Isabel Vann D.O. EBL: [Less than 10 mL] IV fluids: [See records] Urine output: [Not measured] Drains: [None] Complications: [None immediately apparent] Condition: [Stable to recovery] Operative indication and findings: [The patient is a 79-year-old female who has previous underwent a left carotid endarterectomy back in 2000 who previously presented to the hospital with symptoms of right-sided weakness. Computed tomography scan revealed high-grade stenosis of the bilateral internal carotid arteries, a ultrasound revealed no significant evidence of stenosis therefore the patient is here today for direct visualization with angiography. Risks and benefits were discussed and she seemingly understood and was willing to proceed as such. ] Procedure in detail: [The patient is brought to the special suite and placed in supine position. The bilateral groins are prepped and draped in usual sterile fashion. A preprocedure timeout performed, all parties are in agreement. The ultrasound was utilized in the right common femoral artery was identified. The skin overlying was anesthetized 1% lidocaine plain. A multipurpose needle was used and the artery was cannulated. A 5-Pal[place] sheath was placed. Wires and catheters were used and passed through the aorta up into the level of the arch. An arteriogram was performed. The pigtail catheter was then removed and replaced with a vert catheter. The brachial cephalic, left carotid and left subclavian artery were all individually selected and angiograms were performed. Catheters and wires were removed. The sheath was removed and pressure was held hemostasis was adequate. The patient is transferred back to recovery in stable condition having tolerated the procedure well. Findings in detail: the aorta and dilated with a previous diagnosis of aortic aneurysm. Her brachiocephalic artery is widely patent and ectatic. The visualized portions of the right subclavian are patent without evidence of disease. The right common, internal and external arteries are patent. There is minimal calcific disease in the internal carotid artery not causing significant appearance of flow-limiting stenosis. There is a partial bovine arch and the left common carotid comes off of the brachiocephalic artery. The common carotid is tortuous. There is no significant disease in the common carotid artery. The external is patent without significant disease. The internal artery does have some degree of postsurgical changes with a more bulbous appearance is some calcific disease but no evidence of high-grade stenosis. The left artery is patent without significant disease for the visualized portion] Plan - Discharge Summary Discharge Rx Participant: Yes New Discharge Prescriptions: No Action ALPRAZolam [Xanax] 0.25 mg PO TID PRN PRN Reason: Anxiety Cholecalciferol [Vitamin D3 (25 Mcg = 1000 Iu)] 1,000 unit PO DAILY@1800 Atorvastatin [Lipitor] 80 mg PO HS Lisinopril [Zestril] 10 mg PO DAILY@1200 carvediloL [Carvedilol] 25 mg PO BID Clopidogrel Bisulfate [Plavix] 75 mg PO DAILY #30 tab Cyanocobalamin (Vitamin B-12) [Vitamin B-12] 1,000 mcg PO DAILY Aspirin 81 mg PO DAILY #30 chewable Famotidine [Pepcid] 20 mg PO BID Fiber Cap 1 cap PO DAILY Discharge Medication List ALPRAZolam [Xanax] 0.25 mg PO TID PRN 06/06/15 [History] Cholecalciferol [Vitamin D3 (25 Mcg = 1000 Iu)] 1,000 unit PO DAILY@1800 06/06/15 [History] Atorvastatin [Lipitor] 80 mg PO HS 01/03/16 [History] Lisinopril [Zestril] 10 mg PO DAILY@1200 12/29/19 [History] carvediloL [Carvedilol] 25 mg PO BID 12/29/19 [History] Clopidogrel Bisulfate [Plavix] 75 mg PO DAILY #30 tab 12/30/19 [Rx] Cyanocobalamin (Vitamin B-12) [Vitamin B-12] 1,000 mcg PO DAILY 03/08/20 [Histor y] Aspirin 81 mg PO DAILY #30 chewable 03/11/20 [Rx] Famotidine [Pepcid] 20 mg PO BID 04/04/20 [History] Fiber Cap 1 cap PO DAILY 04/04/20 [History]
[2020-04-09 15:25] VITALS: PULSE 60
[2020-04-09 16:32] VITALS: BP 132/65
--- NOTE | 2020-04-09 17:04 | IR ---
Fluoroscopy HISTORY: Carotid stenosis 10.7 minutes fluoroscopy time supplied to the referring clinician. 130 intraoperative C-arm images d ocument the procedure. See dictated report from vascular surgery.
== END ==
LOC: CATHCVL 07:48
PROVIDERS: ATTEND Surgery
DX: I65.21 Occlusion and stenosis of right carotid artery (principal); I77.1 Stricture of artery; R94.8 Abnormal results of function studies of other organs and systems; F17.200 Nicotine dependence, unspecified, uncomplicated; Z86.73 Personal history of transient ischemic attack (TIA), and cerebral infarction without residual deficits; Z98.890 Other specified postprocedural states; Z79.02 Long term (current) use of antithrombotics/antiplatelets; Z79.82 Long term (current) use of aspirin; Z79.899 Other long term (current) drug therapy
CPT/HCPCS: 36222; C1894; C1769 ×2; J2250; J2001; Q9966

== ENCOUNTER 2020-04-23 11:45 | Inpatient (IN) | payer MEDICARE, BC ==
--- NOTE | 2020-04-23 12:15 | ED ---
General Adult HPI - General Chief complaint: Shortness of Breath Stated complaint: DWIGHT Time Seen by Provider: 04/23/20 12:00 Source: patient Mode of arrival: wheelchair Limitations: no limitations - History of Present Illness Initial comments: Dictation was produced using [employer] dictation software. please excuse any grammatical, word or spelling errors. This patient was cared for during a federal and state declared state of emergency secondary to Covid 19 Chief Complaint: 79-year-old female presents with cough 2 weeks. History of Present Illness: It is 79-year-old female she is an active tobacco user. Patient states over the last 2 weeks she's been having a worsening cough. Patient states she coughs up very thick greenish sputum. She states today she decided come to the emergency department that she feels more weak. She's been checking her temperature however has not had any pyrexia. She denies any chest pain. States that she does feel short of breath. She has no pain complaints. She does feel slightly nauseated. The ROS documented in this emergency department record has been reviewed and confirmed by me. Those systems with pertinent positive or negative responses have been documented in the HPI. All other systems are other negative and/or noncontributory. PHYSICAL EXAM: General Impression: Alert and oriented x3, not in acute distress HEENT: Normocephalic atraumatic, extra-ocular movements intact, pupils equal and reactive to light bilaterally, mucous membranes moist. Cardiovascular: Heart regular rate and rhythm Chest: Mildly dyspneic, no retractions, able to complete 5-6 word sentences, diffuse lung wheezing and rales Abdomen: abdomen soft, non-tender, non-distended, no organomegaly Musculoskeletal: Pulses present and equal in all extremities, no peripheral edema Motor: no focal deficits noted Neurological: CN II-XII grossly intact, no focal motor or sensory deficits noted Skin: Intact with no visualized rashes Psych: Normal affect and mood ED course: 79-year-old female presents with respiratory infectious symptoms. Signs upon arrival are within acceptable limits. Patient has not been formally diagnosed with COPD however she isn't active tobacco user and has been for several years. Laboratory evaluation obtained. Leukocytosis of 19.7. There is a left shift. Coag panel is unremarkable. Venous blood gas are within acceptable limits. Sodium 129. Rest of labs are unremarkable. No lactacidosis. Patient given 1 L bolus. x-ray shows new infiltrate. Clinical presentation consistent with community acquired pneumonia and COPD exacerbation. Considering patient's age and comorbidities and work of breathing patient be admitted for IV antibiotics. EKG interpretation: Ventricular rate 62, normal sinus rhythm, UT interval 154, QRS 100, QTC 430. No UT prolongation, no QTC prolongation, no ST or T-wave changes noted. EKG compared to 03/08/2020 showing no changes. Overall, this EKG is unremarkable - Related Data Home Medications Medication Instructions Recorded Confirmed ALPRAZolam [Xanax] 0.25 mg PO TID PRN 06/06/15 04/23/20 Cholecalciferol [Vitamin D3 (25 1,000 unit PO DAILY@1800 06/06/15 04/23/20 Mcg = 1000 Iu)] Atorvastatin [Lipitor] 80 mg PO HS 01/03/16 04/23/20 Lisinopril [Zestril] 10 mg PO DAILY@1200 12/29/19 04/23/20 carvediloL [Carvedilol] 25 mg PO BID 12/29/19 04/23/20 Cyanocobalamin (Vitamin B-12) 1,000 mcg PO DAILY 03/08/20 04/23/20 [Vitamin B-12] Famotidine [Pepcid] 20 mg PO BID 04/04/20 04/23/20 Previous Rx's Medication Instructions Recorded Clopidogrel Bisulfate [Plavix] 75 mg PO DAILY #30 tab 12/30/19 Aspirin 81 mg PO DAILY #30 chewable 03/11/20 Allergies Allergy/AdvReac Type Severity Reaction Status Date / Time No Known Allergies Allergy Verified 04/23/20 12:37 Review of Systems ROS Statement: Those systems with pertinent positive or pertinent negative responses have been documented in the HPI. ROS Other: All systems not noted in ROS Statement are negative. Past Medical History Past Medical History: CVA/TIA, GERD/Reflux, Hyperlipidemia, Hypertension, Myocardial Infarction ([place]), Osteoarthritis (OA) Additional Past Medical History / Comment(s): "disc problems in back", stroke 1998-no left over effects, fell December 2015-fx left hip, "Mini stroke" 2019- no effects, vertigo, balance "not good", does not use any assitive device Last Myocardial Infarction Date:: 2000 History of Any Multi-Drug Resistant Organisms: None Reported Past Surgical History: AICD, Appendectomy, Bowel Resection, Cholecystectomy, Coronary Bypass/CABG, Heart Catheterization With Stent, Hernia Repair, Orthopedic Surgery Additional Past Surgical History / Comment(s): CABG 2002, lt hip surgery after fx 2015, lesion removed from left arm, jan cataracts, 3 cardiac stents Past Anesthesia/Blood Transfusion Reactions: Motion Sickness Date of Last Stent Placement:: 2000 Type of Cardiac Device: AICD Device Placement Date:: 2002- Past Psychological History: Anxiety Smoking Status: Current every day smoker Past Alcohol Use History: None Reported Past Drug Use History: None Reported - Past Family History Sister(s) Family Medical History: Cancer Son(s) Family Medical History: Cancer Additional Family Medical History / Comment(s): pancreatic cancer Father Family Medical History: Cancer Additional Family Medical History / Comment(s): . Mother Family Medical History: Cancer Additional Family Medical History / Comment(s): . General Exam Limitations: no limitations Course Vital Signs 04/23/20 04/23/20 11:50 12:02 Temperature 98.3 F Pulse Rate 65 Respiratory 16 16 Rate Blood Pressure 124/58 O2 Sat by Pulse 95 Oximetry Medical Decision Making - Lab Data Result diagrams: 04/23/20 12:25 04/23/20 12:25 Lab Results 04/23/20 04/23/20 04/23/20 Range/Units 12:25 12:25 12:25 WBC 19.7 H (3.8-10.6) k/uL RBC 3.57 L (3.80-5.40) m/uL Hgb 11.7 (11.4-16.0) gm/dL Hct 35.3 (34.0-46.0) % MCV 98.7 (80.0-100.0) fL MCH 32.7 (25.0-35.0) pg MCHC 33.1 (31.0-37.0) g/dL RDW 12.5 (11.5-15.5) % Plt Count 277 (150-450) k/uL Neutrophils % 91 % Lymphocytes % 4 % Monocytes % 4 % Eosinophils % 1 % Basophils % 0 % Neutrophils # 17.9 H (1.3-7.7) k/uL Lymphocytes # 0.8 L (1.0-4.8) k/uL Monocytes # 0.7 (0-1.0) k/uL Eosinophils # 0.1 (0-0.7) k/uL Basophils # 0.1 (0-0.2) k/uL PT 9.8 (9.0-12.0) sec INR 0.9 (<1.2) APTT 30.5 H (22.0-30.0) sec VBG pH (7.31-7.41) VBG pCO2 (37-51) mmHg VBG HCO3 (24-28) mmol/L Sodium 129 L (137-145) mmol/L Potassium 4.7 (3.5-5.1) mmol/L Chloride 95 L (98-107) mmol/L Carbon Dioxide 27 (22-30) mmol/L Anion Gap 7 mmol/L BUN 15 (7-17) mg/dL Creatinine 0.73 (0.52-1.04) mg/dL Est GFR (CKD-EPI)AfAm >90 (>60 ml/min/1.73 sqM) Est GFR (CKD-EPI)NonAf 80 (>60 ml/min/1.73 sqM) Glucose 149 H (74-99) mg/dL Plasma Lactic Acid Ezequiel (0.7-2.0) mmol/L Calcium 9.7 (8.4-10.2) mg/dL Magnesium 2.3 (1.6-2.3) mg/dL Total Bilirubin 1.7 H (0.2-1.3) mg/dL AST 49 H (14-36) U/L ALT 34 (4-34) U/L Alkaline Phosphatase 121 (38-126) U/L Total Protein 6.3 (6.3-8.2) g/dL Albumin 3.6 (3.5-5.0) g/dL 04/23/20 04/23/20 Range/Units 12:25 13:05 WBC (3.8-10.6) k/uL RBC (3.80-5.40) m/uL Hgb (11.4-16.0) gm/dL Hct (34.0-46.0) % MCV (80.0-100.0) fL MCH (25.0-35.0) pg MCHC (31.0-37.0) g/dL RDW (11.5-15.5) % Plt Count (150-450) k/uL Neutrophils % % Lymphocytes % % Monocytes % % Eosinophils % % Basophils % % Neutrophils # (1.3-7.7) k/uL Lymphocytes # (1.0-4.8) k/uL Monocytes # (0-1.0) k/uL Eosinophils # (0-0.7) k/uL Basophils # (0-0.2) k/uL PT (9.0-12.0) sec INR (<1.2) APTT (22.0-30.0) sec VBG pH 7.36 (7.31-7.41) VBG pCO2 48 (37-51) mmHg VBG HCO3 27 (24-28) mmol/L Sodium (137-145) mmol/L Potassium (3.5-5.1) mmol/L Chloride (98-107) mmol/L Carbon Dioxide (22-30) mmol/L Anion Gap mmol/L BUN (7-17) mg/dL Creatinine (0.52-1.04) mg/dL Est GFR (CKD-EPI)AfAm (>60 ml/min/1.73 sqM) Est GFR (CKD-EPI)NonAf (>60 ml/min/1.73 sqM) Glucose (74-99) mg/dL Plasma Lactic Acid Ezequiel 1.2 (0.7-2.0) mmol/L Calcium (8.4-10.2) mg/dL Magnesium (1.6-2.3) mg/dL Total Bilirubin (0.2-1.3) mg/dL AST (14-36) U/L ALT (4-34) U/L Alkaline Phosphatase (38-126) U/L Total Protein (6.3-8.2) g/dL Albumin (3.5-5.0) g/dL Disposition Clinical Impression: Pneumonia Disposition: ADMITTED IP TO THIS HOSP Condition: Fair Referrals: Nishant Huffman DO [Primary Care Provider] - 1-2 days Decision Time: 13:34
[2020-04-23 12:37] LABS: Basophils # (A) 0.1 k/uL (0-0.2); Basophils % (A) 0 %; Eosinophils # (A) 0.1 k/uL (0-0.7); Eosinophils % (A) 1 %; HCT 35.3 % (34.0-46.0); HGB 11.7 gm/dL (11.4-16.0); Lymphocytes # (A) 0.8 k/uL (1.0-4.8); Lymphocytes % (A) 4 %; MCH 32.7 pg (25.0-35.0); MCHC 33.1 g/dL (31.0-37.0); MCV 98.7 fL (80.0-100.0); Mean Platelet Volume 7.2; Monocytes # (A) 0.7 k/uL (0-1.0); Monocytes % (A) 4 %; Neutrophils # (A) 17.9 k/uL (1.3-7.7); Neutrophils % (A) 91 %; Platelet Count 277 k/uL (150-450); RBC 3.57 m/uL (3.80-5.40); RDW 12.5 % (11.5-15.5); WBC 19.7 k/uL (3.8-10.6)
[2020-04-23 12:46] LABS: INR 0.9 (<1.2); Partial Thromboplastin Time 30.5 sec (22.0-30.0); Prothrombin Time 9.8 sec (9.0-12.0)
--- NOTE | 2020-04-23 12:52 | XR ---
EXAMINATION TYPE: XR chest 2V DATE OF EXAM: 04/23/2020 COMPARISON: Chest x-ray March 08, 2020. CTA chest August 02, 2019 HISTORY: Productive cough. TECHNIQUE: Frontal and lateral views of the chest are obtained. FINDINGS: There is background chronic emphysematous change with new patchy bibasilar opacities. Subt le blunting of the left costophrenic angle on lateral view noted. Stable mild cardiomegaly with multi lead pacemaker/defibrillator. Overlying sternal wires. Atherosclerotic thoracic aorta. The osseous st ructures are demineralized. IMPRESSION: Chronic changes with new bibasilar acute infiltrate and/or atelectasis and tiny left ple ural effusion.
[2020-04-23 12:57] LABS: ALT 34 U/L (4-34); AST 49 U/L (14-36); African American GFR (CKD) >90 (>60 ml/min/1.73 sqM); Albumin 3.6 g/dL (3.5-5.0); Alkaline Phosphatase 121 U/L (38-126); Anion Gap 7 mmol/L; Blood Urea Nitrogen 15 mg/dL (7-17); Calcium 9.7 mg/dL (8.4-10.2); Carbon Dioxide 27 mmol/L (22-30); Chloride 95 mmol/L (98-107); Glucose 149 mg/dL (74-99); Magnesium 2.3 mg/dL (1.6-2.3); Non-African American GFR(CKD) 80 (>60 ml/min/1.73 sqM); Potassium 4.7 mmol/L (3.5-5.1); Sodium 129 mmol/L (137-145); Total Bilirubin 1.7 mg/dL (0.2-1.3); Total Protein 6.3 g/dL (6.3-8.2)
[2020-04-23 13:17] LABS: VBG PH 7.36 (7.31-7.41)
[2020-04-23] MEDS ORDERED: cefTRIAXone IN SWFI 1,000 MG/10 ML SYRINGE IVP STA (13:27)
[2020-04-23] MEDS ORDERED: AZITHROMYCIN 500 MG in SODIUM CHLORIDE 0.9% 250 ML IVPB STA (13:27)
[2020-04-23] MEDS ORDERED: ACETAMINOPHEN TAB 325 MG TAB PO PRN (13:34)
[2020-04-23] MEDS ORDERED: ONDANSETRON 4 MG/2 ML VIAL IVP PRN (13:34)
[2020-04-23] MEDS ORDERED: NALOXONE 0.4 MG/ML 1 ML VIAL IV PRN (13:34)
[2020-04-23] MEDS ORDERED: IPRATROPIUM-ALBUTEROL 3 ML NEB INHALATION PRN (13:36)
[2020-04-23] MEDS ORDERED: DEXAMETHASONE SOD PHOSPHATE 10 MG/ML 1 ML VIAL IV STA (13:36)
[2020-04-23] MEDS: SODIUM CHLORIDE 0.9% 1,000 ML IV SCH (13:56)
[2020-04-23] MEDS ORDERED: INFLUENZA VACCINE (6 MOS+) 60 MCG/0.5 ML SYRINGE IM ONE (14:34)
[2020-04-23] MEDS ORDERED: ALPRAZolam 0.25 MG TAB PO PRN (19:52)
[2020-04-23] MEDS ORDERED: MELATONIN 3 MG TABLET PO PRN (20:45)
[2020-04-23] MEDS ORDERED: MAGNESIUM HYDROXIDE 2,400 MG/10 ML CUP PO PRN (20:45)
[2020-04-23] MEDS ORDERED: LACTULOSE 20 GM/30 ML CUP PO PRN (20:45)
[2020-04-23] MEDS ORDERED: CALCIUM CARBONATE 500 MG CHEWABLE PO PRN (20:45)
[2020-04-23] MEDS ORDERED: MAG HYDROX/AL HYDROX/SIMETH 30 ML CUP PO PRN (20:45)
--- NOTE | 2020-04-23 20:48 | P.HPIM ---
History of Present Illness H&P Date: 04/23/20 Chief Complaint: Short of breath cough History of presenting complaint: This is a very pleasant 79-year-old patient of Dr. Huffman. She also follows with neurologist Dr. Cobb. Chronic stable medical conditions include hypertension, hyperlipidemia, herniated disc in the back, coronary artery disease with bypass. Patient now presents with 1 week of increasing short of breath wheezing coughing. Some sputum production. No obvious fever and chills. A bit tired and rundown. Still smoking a few cigarettes a day. Review of systems: GEN.: None EYES: None HEENT: None NECK: None RESPIRATORY: As above CARDIOVASCULAR: None GASTROINTESTINAL: None GENITOURINARY: None MUSCULOSKELETAL: Some joint pains] LYMPHATICS: None HEMATOLOGICAL: None PSYCHIATRY: None NEUROLOGICAL: None Past medical history to include: Coronary artery disease, stroke, GERD, hypertension, hyperlipidemia, back pain with herniated disc carotid bypass in 2002 AICD, anxiety. Social history: This is the . Smoking since 9069 about a pack a day now down to a few cigarettes a day. Physical examination: VITAL SIGNS: 98.3, 65, 16, 1 24 x 58, 95% on room air GENERAL: BMI 26.6, sitting up, short of breath. EYES: Pupils equal. Conjunctiva normal. HEENT: External appearance of nose and ears normal, oral cavity grossly normal. NECK: JVD not raised; masses not palpable. HEART: First and second heart sounds are normal; no edema. LUNGS: Respiratory rate increased, decreased breaths on prolonged expiration. ABDOMEN: Soft, nontender, liver spleen not palpable, no masses palpable. PSYCH: Alert and oriented x3; mood and affect normal. MOST schedule: Evidence of OA, several joints NEUROLOGICAL: Cranial nerves grossly intact; no facial asymmetry, power and sensation grossly intact. LYMPHATICS: No lymph nodes palpable in the axilla and neck INVESTIGATIONS, reviewed in the clinical context: White count 19.7 hemoglobin 11.7 platelets 277 potassium 4.7 creatinine 0.73 EKG tracing personally reviewed by me-flipped T waves in anterior leads sinus rhythm Chest x-ray film personally reviewed by me-some hyperinflation and some left basilar infiltrate Assessment: -Left lower lobe pneumonia, suspect gram-negative orgasm, POA -Acute COPD exacerbation in a current smoker -Chronic nicotine dependence patient cigarette smoker -Essential hypertension -Hyperlipidemia -Coronary artery disease with a bypass in 2002 and stent -Anxiety depression not otherwise specified -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 Alex Gross - outpatient -Primary osteoarthritis -AICD Plan: She'll be started on bronchodilators, steroids. Home medications resumed. Lovenox for DVT prophylaxis. Care was discussed with the patient. Past Medical History Past Medical History: Coronary Artery Disease (CAD), CVA/TIA, GERD/Reflux, Hyperlipidemia, Hypertension, Myocardial Infarction ([place]), Osteoarthritis (OA), Vascular Disorder Additional Past Medical History / Comment(s): 1998 CVA with no residual, 02/2020 TIA, caratid stenosis with L caratid endartectomy, pt states she has had irregular heart beat in past but cannot recall type, vertigo, balance issues, back pain/disc problems, benign colon polyp Last Myocardial Infarction Date:: 2000 History of Any Multi-Drug Resistant Organisms: None Reported Past Surgical History: AICD, Appendectomy, Bowel Resection, Cholecystectomy, Co ronary Bypass/CABG, Heart Catheterization With Stent, Hernia Repair, Orthopedic Surgery Additional Past Surgical History / Comment(s): Arch studies, 2000 PCI with stents, 2002 CABG-3 vessel, 2002 AICD, AICD gen changes, DFTs, 2002 L carotid endartectomy, bowel resection for benign flat polyp, abdominal hernia repair, L hip fracture with surgery, L arm benign lesion removed, colonoscopies/polyps Past Anesthesia/Blood Transfusion Reactions: No Reported Reaction, Motion Sickness Date of Last Stent Placement:: 2000 Type of Cardiac Device: AICD Device Placement Date:: 2002- Past Psychological History: Anxiety Additional Psychological History / Comment(s): Pt resides with her spouse and child. She uses no assistive device. She no longer drives, her spouse drives. Smoking Status: Current every day smoker, Light tobacco smoker Past Alcohol Use History: None Reported Additional Past Alcohol Use History / Comment(s): Pt started smoking in 1969 and was a ppd smoker but cut down to 5 cigarettes a day Past Drug Use History: None Reported Additional Drug Use History / Comment(s): . - Past Family History Sister(s) Family Medical History: Cancer Additional Family Medical History / Comment(s): Sister had breast/bladder cancers. Son(s) Family Medical History: Cancer Additional Family Medical History / Comment(s): pancreatic cancer Father Family Medical History: Cancer Additional Family Medical History / Comment(s): Bowel cancer. Mother Family Medical History: Cancer Additional Family Medical History / Comment(s): Mother had bowel cancer twice and 2nd time metastasized to her kidney. Medications and Allergies Home Medications Medication Instructions Recorded Confirmed Type ALPRAZolam [Xanax] 0.25 mg PO TID PRN 06/06/15 04/23/20 History Cholecalciferol [Vitamin D3 (25 1,000 unit PO DAILY@1800 06/06/15 04/23/20 History Mcg = 1000 Iu)] Atorvastatin [Lipitor] 80 mg PO HS 01/03/16 04/23/20 History Lisinopril [Zestril] 10 mg PO DAILY@1200 12/29/19 04/23/20 History carvediloL [Carvedilol] 25 mg PO BID 12/29/19 04/23/20 History Clopidogrel Bisulfate [Plavix] 75 mg PO DAILY #30 tab 12/30/19 04/23/20 Rx Cyanocobalamin (Vitamin B-12) 1,000 mcg PO DAILY 03/08/20 04/23/20 History [Vitamin B-12] Aspirin 81 mg PO DAILY #30 chewable 03/11/20 04/23/20 Rx Famotidine [Pepcid] 20 mg PO BID 04/04/20 04/23/20 History Allergies Allergy/AdvReac Type Severity Reaction Status Date / Time No Known Allergies Allergy Verified 04/23/20 12:37 Physical Exam Vitals: Vital Signs Temp Pulse Resp BP BP Pulse Ox 04/23/20 15:10 20 04/23/20 15:00 98.2 F 20 133/68 95 04/23/20 14:10 97.8 F 64 16 131/64 93 L 04/23/20 14:07 97.8 F 64 16 131/64 93 L 04/23/20 12:02 16 04/23/20 11:50 98.3 F 65 16 124/58 95 Intake and Output 04/23/20 04/23/20 04/23/20 06:59 14:59 22:59 Other: # Voids 1 Weight 72.575 kg 72.575 kg Results CBC & Chem 7: 04/23/20 12:25 04/23/20 12:25 Labs: Abnormal Lab Results - Last 24 Hours (Table) 04/23/20 04/23/20 04/23/20 Range/Units 12:25 12:25 12:25 WBC 19.7 H (3.8-10.6) k/uL RBC 3.57 L (3.80-5.40) m/uL Neutrophils # 17.9 H (1.3-7.7) k/uL Lymphocytes # 0.8 L (1.0-4.8) k/uL APTT 30.5 H (22.0-30.0) sec Sodium 129 L (137-145) mmol/L Chloride 95 L (98-107) mmol/L Glucose 149 H (74-99) mg/dL Total Bilirubin 1.7 H (0.2-1.3) mg/dL AST 49 H (14-36) U/L Thrombosis Risk Factor Assmnt - Choose All That Apply Any of the Below Risk Factors Present?: Yes Each Factor Represents 1 point: Obesity (BMI >25), Serious lung disease incl. p neumonia (< 1month) Other Risk Factors: Yes Each Risk Factor Represents 3 Points: Age 75 years or older Other congenital or acquired thrombophilia - If yes, enter type in comment: No Thrombosis Risk Factor Assessment Total Risk Factor Score: 5 Thrombosis Risk Factor Assessment Level: High Risk
[2020-04-23] MEDS: BUDESONIDE 1 MG/2 ML NEBU INHALATION SCH (21:04)
[2020-04-23] MEDS: IPRATROPIUM-ALBUTEROL 3 ML NEB INHALATION SCH ×2 (21:05→23:48)
[2020-04-23 21:24] LABS: Glucose,Whole Blood 119 mg/dL (75-99)
[2020-04-23] MEDS: INSULIN ASPART (NovoLOG) 100 UNIT/ML VIAL SQ SCH (21:51)
[2020-04-23] MEDS: methylPREDNISolone SOD SUCCI 40 MG/ML 1 ML VIAL IV SCH (21:59)
[2020-04-23] MEDS: FAMOTIDINE 20 MG TAB PO SCH (21:59)
[2020-04-23] MEDS: carvediloL 12.5 MG TAB PO SCH (21:59)
[2020-04-23] MEDS: ATORVASTATIN 80 MG TAB PO SCH (21:59)
[2020-04-23] MEDS: ENOXAPARIN 40 MG/0.4 ML SYRINGE SQ SCH (21:59)
[2020-04-24] MEDS: methylPREDNISolone SOD SUCCI 40 MG/ML 1 ML VIAL IV SCH ×3 (01:53→16:55)
[2020-04-24] MEDS: IPRATROPIUM-ALBUTEROL 3 ML NEB INHALATION SCH ×6 (04:14→23:50)
[2020-04-24 07:44] LABS: Glucose,Whole Blood 169 mg/dL (75-99)
[2020-04-24] MEDS: INSULIN ASPART (NovoLOG) 100 UNIT/ML VIAL SQ SCH ×4 (07:52→22:28)
[2020-04-24] MEDS: ENOXAPARIN 40 MG/0.4 ML SYRINGE SQ SCH (07:53)
[2020-04-24] MEDS: ASPIRIN 81 MG PO SCH (07:54)
[2020-04-24] MEDS: CYANOCOBALAMIN 500 MCG TAB PO SCH (07:54)
[2020-04-24] MEDS: FAMOTIDINE 20 MG TAB PO SCH ×2 (07:54→22:28)
[2020-04-24] MEDS: AZITHROMYCIN 500 MG TAB PO SCH (07:54)
[2020-04-24] MEDS: CLOPIDOGREL 75 MG TAB PO SCH (07:55)
[2020-04-24] MEDS: carvediloL 12.5 MG TAB PO SCH ×2 (07:59→16:56)
[2020-04-24] MEDS: BUDESONIDE 1 MG/2 ML NEBU INHALATION SCH ×2 (08:46→19:17)
[2020-04-24 09:27] LABS: African American GFR (CKD) 101.9 (60.0-200.0); Anion Gap 8.6 mmol/L (4.00-12.00); Calcium 9.2 mg/dL (8.7-10.3); Carbon Dioxide 26.4 mmol/L (21.6-31.8); Non-African American GFR(CKD) 87.9 (60.0-200.0)
--- NOTE | 2020-04-24 10:00 | P.CNPUL ---
History of Present Illness Consult date: 04/24/20 Reason for consult: dyspnea, cough, pneumonia Chief complaint: Shortness of breath and an cough History of present illness: This is a 79-year-old female with extensive history of smoking and nicotine use is still actively smoking came into the hospital with 3-4 day history of increased cuff congestion shortness of breath, patient's chest x-ray suggestive of changes with bilateral basal pneumonia, patient white cell count was over 19,000, also has component of hyponatremia , has been on 2 L oxygen Review of Systems All systems: negative Past Medical History Past Medical History: Coronary Artery Disease (CAD), CVA/TIA, GERD/Reflux, Hy perlipidemia, Hypertension, Myocardial Infarction ([place]), Osteoarthritis (OA), Vascular Disorder Additional Past Medical History / Comment(s): 1998 CVA with no residual, 02/2020 TIA, caratid stenosis with L caratid endartectomy, pt states she has had irregular heart beat in past but cannot recall type, vertigo, balance issues, back pain/disc problems, benign colon polyp Last Myocardial Infarction Date:: 2000 History of Any Multi-Drug Resistant Organisms: None Reported Past Surgical History: AICD, Appendectomy, Bowel Resection, Cholecystectomy, Coronary Bypass/CABG, Heart Catheterization With Stent, Hernia Repair, Orthopedic Surgery Additional Past Surgical History / Comment(s): Arch studies, 2000 PCI with stents, 2002 CABG-3 vessel, 2002 AICD, AICD gen changes, DFTs, 2002 L carotid endartectomy, bowel resection for benign flat polyp, abdominal hernia repair, L hip fracture with surgery, L arm benign lesion removed, colonoscopies/polyps Past Anesthesia/Blood Transfusion Reactions: No Reported Reaction, Motion Sickness Date of Last Stent Placement:: 2000 Type of Cardiac Device: AICD Device Placement Date:: 2002- Past Psychological History: Anxiety Additional Psychological History / Comment(s): Pt resides with her spouse and child. She uses no assistive device. She no longer drives, her spouse drives. Smoking Status: Current every day smoker, Light tobacco smoker Past Alcohol Use History: None Reported Additional Past Alcohol Use History / Comment(s): Pt started smoking in 1969 and was a ppd smoker but cut down to 5 cigarettes a day Past Drug Use History: None Reported Additional Drug Use History / Comment(s): . - Past Family History Sister(s) Family Medical History: Cancer Additional Family Medical History / Comment(s): Sister had breast/bladder cancers. Son(s) Family Medical History: Cancer Additional Family Medical History / Comment(s): pancreatic cancer Father Family Medical History: Cancer Additional Family Medical History / Comment(s): Bowel cancer. Mother Family Medical History: Cancer Additional Family Medical History / Comment(s): Mother had bowel cancer twice and 2nd time metastasized to her kidney. Medications and Allergies Home Medications Medication Instructions Recorded Confirmed Type ALPRAZolam [Xanax] 0.25 mg PO TID PRN 06/06/15 04/23/20 History Cholecalciferol [Vitamin D3 (25 1,000 unit PO DAILY@1800 06/06/15 04/23/20 History Mcg = 1000 Iu)] Atorvastatin [Lipitor] 80 mg PO HS 01/03/16 04/23/20 History Lisinopril [Zestril] 10 mg PO DAILY@1200 12/29/19 04/23/20 History carvediloL [Carvedilol] 25 mg PO BID 12/29/19 04/23/20 History Clopidogrel Bisulfate [Plavix] 75 mg PO DAILY #30 tab 12/30/19 04/23/20 Rx Cyanocobalamin (Vitamin B-12) 1,000 mcg PO DAILY 03/08/20 04/23/20 History [Vitamin B-12] Aspirin 81 mg PO DAILY #30 chewable 03/11/20 04/23/20 Rx Famotidine [Pepcid] 20 mg PO BID 04/04/20 04/23/20 History Allergies Allergy/AdvReac Type Severity Reaction Status Date / Time No Known Allergies Allergy Verified 04/23/20 12:37 Physical Exam Vitals: Vital Signs Temp Pulse Pulse Resp BP BP Pulse Ox 04/24/20 09:03 72 04/24/20 08:46 72 04/24/20 07:00 98.1 F 69 18 154/77 97 04/24/20 04:23 70 04/24/20 04:14 68 04/24/20 03:21 16 04/24/20 02:22 98.0 F 65 16 114/69 95 04/24/20 00:48 16 04/23/20 23:56 70 04/23/20 23:48 70 04/23/20 20:20 98 F 67 18 158/77 95 04/23/20 15:10 20 04/23/20 15:00 98.2 F 20 133/68 95 04/23/20 14:10 97.8 F 64 16 131/64 93 L 04/23/20 14:07 97.8 F 64 16 131/64 93 L 04/23/20 12:02 16 04/23/20 11:50 98.3 F 65 16 124/58 95 Intake and Output 04/23/20 04/24/20 04/24/20 22:59 06:59 14:59 Other: Voiding Method Toilet Toilet # Voids 1 1 Weight 72.575 kg - Constitutional General appearance: average body habitus, cooperative, disheveled - EENT Eyes: EOMI, PERRLA Ears: bilateral: normal - Neck Neck: normal ROM Carotids: bilateral: upstroke normal - Respiratory Respiratory: bilateral: diminished, rales - Cardiovascular Rhythm: regular Heart sounds: normal: S1, S2 - Gastrointestinal General gastrointestinal: normal bowel sounds - Neurologic Neurologic: CNII-XII intact - Musculoskeletal Musculoskeletal: gait normal, generalized weakness, strength equal bilaterally - Psychiatric Psychiatric: A&O x's 3, appropriate affect, intact judgment & insight Results - Laboratory Findings CBC and BMP: 04/23/20 12:25 04/24/20 05:59 PT/INR, D-dimer PT 9.8 sec (9.0-12.0) 04/23/20 12:25 INR 0.9 (<1.2) 04/23/20 12:25 Abnormal lab findings: Abnormal Labs 04/23/20 04/23/20 04/23/20 12:25 12:25 12:25 WBC 19.7 H RBC 3.57 L Neutrophils # 17.9 H Lymphocytes # 0.8 L APTT 30.5 H Sodium 129 L Chloride 95 L BUN/Creatinine Ratio Glucose 149 H POC Glucose (mg/dL) Total Bilirubin 1.7 H AST 49 H 04/23/20 04/24/20 04/24/20 21:20 05:59 07:42 WBC RBC Neutrophils # Lymphocytes # APTT Sodium 132 L Chloride BUN/Creatinine Ratio 25.00 H Glucose 141 H POC Glucose (mg/dL) 119 H 169 H Total Bilirubin AST - Diagnostic Findings Chest x-ray: report reviewed, image reviewed (Finding as noted above) Assessment and Plan Assessment: Bilateral basal pneumonia Early sepsis Suspect component of diastolic heart failure as well History of coronary artery disease and bypass surgery History of stroke CVA and status post carotid endarterectomy Active smoker and nicotine use Plan: Plan is to continue IV antibiotics breathing treatments and steroid follow clinical course closely may be helpful to give a short trial of diuretics O follow closely patient will need COPD evaluation and workup on outpatient basis Time with Patient: Greater than 30
[2020-04-24] MEDS ORDERED: FUROSEMIDE 10 MG/ML 4 ML VIAL IV STA (10:06)
[2020-04-24 12:09] LABS: Glucose,Whole Blood 154 mg/dL (75-99)
[2020-04-24] MEDS: lisinopriL 10 MG TAB PO SCH (12:18)
[2020-04-24 13:40] VITALS: BMI 26.6
[2020-04-24] MEDS: SODIUM CHLORIDE 0.9% 1,000 ML IV SCH (15:47)
[2020-04-24 17:05] LABS: Glucose,Whole Blood 139 mg/dL (75-99)
--- NOTE | 2020-04-24 18:00 | P.PN ---
Progress Note - Text Progress Note Date: 04/24/20 Chief Complaint: Short of breath cough History of presenting complaint: This is a very pleasant 79-year-old patient of Dr. Huffman. She also follows with neurologist Dr. Cobb. Chronic stable medical conditions include hypertension, hyperlipidemia, herniated disc in the back, coronary artery disease with bypass. Patient now presents with 1 week of increasing short of breath wheezing coughing. Some sputum production. No obvious fever and chills. A bit tired an d rundown. Still smoking a few cigarettes a day. Admitted with pneumonia, COPD exacerbation. Started IV ceftriaxone, Zithromax, bronchitis, IV steroids. Today-sitting up in bed. Breathing a bit better. Still short of breath and wheezing. Appetite much better. Some sputum production Review of systems: Was done for constitutional, cardiovascular, GI, pulmonary. relevant finding as above Active Medications Acetaminophen (Acetaminophen Tab 325 Mg Tab) 650 mg PO Q6HR PRN PRN Reason: Mild Pain or Fever > 100.5 Al Hydroxide/Mg Hydroxide (Mag Hydrox/Al Hydrox/Simeth 30 Ml Cup) 15 ml PO Q6HR PRN PRN Reason: Indigestion Albuterol/Ipratropium (Ipratropium-Albuterol 3 Ml Neb) 3 ml INHALATION Q6H PRN PRN Reason: Dyspnea Albuterol/Ipratropium (Ipratropium-Albuterol 3 Ml Neb) 3 ml INHALATION RT-Q4H [facility] Last Admin: 04/24/20 15:12 Dose: 3 ml Documented by: Alprazolam (Alprazolam 0.25 Mg Tab) 0.25 mg PO TID PRN PRN Reason: Anxiety Aspirin (Aspirin 81 Mg) 81 mg PO DAILY [facility] Last Admin: 04/24/20 07:54 Dose: 81 mg Documented by: Atorvastatin Calcium (Atorvastatin 80 Mg Tab) 80 mg PO HS [facility] Last Admin: 04/23/20 21:59 Dose: 80 mg Documented by: Azithromycin (Azithromycin 500 Mg Tab) 500 mg PO DAILY [facility] Last Admin: 04/24/20 07:54 Dose: 500 mg Documented by: Budesonide (Budesonide 1 Mg/2 Ml Nebu) 1 mg INHALATION RT-BID [facility] Last Admin: 04/24/20 08:46 Dose: 1 mg Documented by: Calcium Carbonate/Glycine (Calcium Carbonate 500 Mg Chewable) 1,000 mg PO Q4HR PRN PRN Reason: Dyspepsia Carvedilol (Carvedilol 12.5 Mg Tab) 25 mg PO AC-BID [facility] Last Admin: 04/24/20 16:56 Dose: 25 mg Documented by: Clopidogrel Bisulfate (Clopidogrel 75 Mg Tab) 75 mg PO DAILY [facility] Last Admin: 04/24/20 07:55 Dose: 75 mg Documented by: Cyanocobalamin (Cyanocobalamin 500 Mcg Tab) 1,000 mcg PO DAILY [facility] Last Admin: 04/24/20 07:54 Dose: 1,000 mcg Documented by: Enoxaparin Sodium (Enoxaparin 40 Mg/0.4 Ml Syringe) 40 mg SQ DAILY [facility] Last Admin: 04/24/20 07:53 Dose: 40 mg Documented by: Famotidine (Famotidine 20 Mg Tab) 20 mg PO BID [facility] Last Admin: 04/24/20 07:54 Dose: 20 mg Documented by: Sodium Chloride (Saline 0.9%) 1,000 mls @ 20 mls/hr IV .Q24H [facility] Last Admin: 04/24/20 15:47 Dose: Not Given Documented by: Ceftriaxone Sodium 1 gm/ (Sodium Chloride) 50 mls @ 100 mls/hr IVPB Q24HR [facility] Last Admin: 04/24/20 07:52 Dose: 100 mls/hr Documented by: Insulin Aspart (Insulin Aspart (Novolog) 100 Unit/Ml Vial) 0 unit SQ ACHS [facility]; Protocol Last Admin: 04/24/20 17:25 Dose: Not Given Documented by: Lactulose (Lactulose 20 Gm/30 Ml Cup) 20 gm PO DAILY PRN PRN Reason: Constipation Lisinopril (Lisinopril 10 Mg Tab) 10 mg PO DAILY@1200 [facility] Last Admin: 04/24/20 12:18 Dose: 10 mg Documented by: Magnesium Hydroxide (Magnesium Hydroxide 2,400 Mg/10 Ml Cup) 2,400 mg PO DAILY PRN PRN Reason: Constipation Melatonin (Melatonin 3 Mg Tablet) 3 mg PO HS PRN PRN Reason: Insomnia Methylprednisolone Sodium Succinate (Methylprednisolone Sod Succi 40 Mg/Ml 1 Ml Vial) 40 mg IV Q8HR [facility] Last Admin: 04/24/20 16:55 Dose: 40 mg Documented by: Naloxone HCl (Naloxone 0.4 Mg/Ml 1 Ml Vial) 0.2 mg IV Q2M PRN PRN Reason: Opioid Reversal Ondansetron HCl (Ondansetron 4 Mg/2 Ml Vial) 4 mg IVP Q8HR PRN PRN Reason: Nausea And Vomiting Physical examination: VITAL SIGNS: 98, 66, 19, 102/62, 97% on 2 L GENERAL: Sitting on bed, less short of breath EYES: Pupils equal. Conjunctiva normal. NECK: JVD not raised; masses not palpable. HEART: First and second heart sounds are normal; no edema. LUNGS: Respiratory rate increased, decreased breaths on prolonged expiration. ABDOMEN: Soft, nontender, liver spleen not palpable, no masses palpable. PSYCH: Alert and oriented x3; mood and affect normal. MUSCULAR skeletal: Evidence of OA, several joints INVESTIGATIONS, reviewed in the clinical context: Potassium 5 creatinine 0.6 Previous testing White count 19.7 hemoglobin 11.7 platelets 277 potassium 4.7 creatinine 0.73 EKG tracing personally reviewed by me-flipped T waves in anterior leads sinus rhythm Chest x-ray film personally reviewed by me-some hyperinflation and some left basilar infiltrate Assessment: -Left lower lobe pneumonia, suspect gram-negative organism, POA -Acute COPD exacerbation in a current smoker-slow to respond -Chronic nicotine dependence patient cigarette smoker -Essential hypertension -Hyperlipidemia -Coronary artery disease with a bypass in 2002 and stent -Anxiety depression not otherwise specified -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 Alex Gross - outpatient -Primary osteoarthritis -AICD Plan: -Continue bronchodilators, steroids. Encouraged to be out of bed. Continue.
[2020-04-24 21:11] LABS: Glucose,Whole Blood 152 mg/dL (75-99)
[2020-04-24] MEDS: ATORVASTATIN 80 MG TAB PO SCH (22:28)
[2020-04-25] MEDS: methylPREDNISolone SOD SUCCI 40 MG/ML 1 ML VIAL IV SCH ×2 (01:27→07:43)
[2020-04-25] MEDS: IPRATROPIUM-ALBUTEROL 3 ML NEB INHALATION SCH ×3 (04:02→11:08)
[2020-04-25 07:08] LABS: Glucose,Whole Blood 151 mg/dL (75-99)
[2020-04-25] MEDS: carvediloL 12.5 MG TAB PO SCH (07:42)
[2020-04-25] MEDS: AZITHROMYCIN 500 MG TAB PO SCH (07:43)
[2020-04-25] MEDS: CLOPIDOGREL 75 MG TAB PO SCH (07:43)
[2020-04-25] MEDS: INSULIN ASPART (NovoLOG) 100 UNIT/ML VIAL SQ SCH ×2 (07:43→11:51)
[2020-04-25] MEDS: FAMOTIDINE 20 MG TAB PO SCH (07:43)
[2020-04-25] MEDS: ASPIRIN 81 MG PO SCH (07:43)
[2020-04-25] MEDS: CYANOCOBALAMIN 500 MCG TAB PO SCH (07:43)
[2020-04-25] MEDS: ENOXAPARIN 40 MG/0.4 ML SYRINGE SQ SCH (07:44)
[2020-04-25] MEDS: BUDESONIDE 1 MG/2 ML NEBU INHALATION SCH (07:54)
[2020-04-25 08:04] VITALS: BP 152/66; RESP 17; TEMP 98.1
--- NOTE | 2020-04-25 10:41 | P.PN ---
Subjective Progress Note Date: 04/25/20 Principal diagnosis: Bilateral basal pneumonia Early sepsis Suspect component of diastolic heart failure as well History of coronary artery disease and bypass surgery History of stroke CVA and status post carotid endarterectomy Active smoker and nicotine use 04/25/2020, patient seen eval examined during the rounds cuff congestion shortness breath is better diuresing well, blood cultures no growth, covid 19 is negative, patient being treated for left lower lobe pneumonia with acute COPD exacerbation patient has been counseled about smoking cessation as well This is a 79-year-old female with extensive history of smoking and nicotine use is still actively smoking came into the hospital with 3-4 day history of increased cuff congestion shortness of breath, patient's chest x-ray suggestive of changes with bilateral basal pneumonia, patient white cell count was over 19,000, also has component of hyponatremia , has been on 2 L oxygen Objective - Vital Signs Vital signs: Vital Signs Temp 98.1 F 04/25/20 07:24 Pulse 68 04/25/20 08:08 Resp 17 04/25/20 07:24 BP 152/66 04/25/20 07:24 Pulse Ox 93 L 04/25/20 07:24 Intake & Output 04/24/20 04/25/20 04/25/20 18:59 06:59 18:59 Intake Total 300 Balance 300 Weight 72.575 kg Intake: Oral 300 Other: Voiding Method Toilet Toilet # Voids 1 1 - Exam - Constitutional General appearance: average body habitus, cooperative, disheveled - EENT Eyes: EOMI, PERRLA Ears: bilateral: normal - Neck Neck: normal ROM Carotids: bilateral: upstroke normal - Respiratory Respiratory: bilateral: diminished, rales - Cardiovascular Rhythm: regular Heart sounds: normal: S1, S2 - Gastrointestinal General gastrointestinal: normal bowel sounds - Neurologic Neurologic: CNII-XII intact - Musculoskeletal Musculoskeletal: gait normal, generalized weakness, strength equal bilaterally - Psychiatric Psychiatric: A&O x's 3, appropriate affect, intact judgment & insight - Labs CBC & Chem 7: 04/23/20 12:25 04/24/20 05:59 Labs: Abnormal Lab Results - Last 24 Hours (Table) 04/24/20 04/24/20 04/24/20 Range/Units 12:08 17:04 21:09 POC Glucose (mg/dL) 154 H 139 H 152 H (75-99) mg/dL 04/25/20 Range/Units 07:00 POC Glucose (mg/dL) 151 H (75-99) mg/dL Microbiology - Last 24 Hours (Table) 04/23/20 12:25 Blood Culture - Preliminary Blood No Growth after 24 hours Assessment and Plan Assessment: Bilateral basal pneumonia predominantly more on the left side Early sepsis Suspect component of diastolic heart failure as well History of coronary artery disease and bypass surgery History of stroke CVA and status post carotid endarterectomy Active smoker and nicotine use Plan: Plan is to continue IV antibiotics breathing treatments and steroid follow clinical course closely may be helpful to give a short trial of diuretics O follow closely patient will need COPD evaluation and workup on outpatient basis Time with Patient: Greater than 30
[2020-04-25 11:20] VITALS: PULSE 68
[2020-04-25 11:48] LABS: Glucose,Whole Blood 141 mg/dL (75-99)
[2020-04-25] MEDS: lisinopriL 10 MG TAB PO SCH (11:51)
[2020-04-25 17:13] LABS: Hemoglobin A1C 5.6 % (4.0-6.0)
--- NOTE | 2020-04-25 23:53 | P.DS ---
Providers Date of admission: 04/23/20 13:35 Expected date of discharge: 04/25/20 Attending physician: Deacon Pool Consults: 04/23/20 13:41 Consult Physician Routine Consulting Provider: Jos Davis Consult Reason/Comments: copd, pna Do you want consulting provider notified?: Yes Primary care physician: [facility] Course: Chief Complaint: Short of breath cough History of presenting complaint: This is a very pleasant 79-year-old patient of Dr. Huffman. She also follows with neurologist Dr. Cobb. Chronic stable medical conditions include hypertension, hyperlipidemia, herniated disc in the back, coronary artery disease with bypass. Patient now presents with 1 week of increasing short of breath wheezing coughing. Some sputum production. No obvious fever and chills. A bit tired and rundown. Still smoking a few cigarettes a day. Admitted with pneumonia, COPD exacerbation. Started IV ceftriaxone, Zithromax, bronchitis, IV steroids. Today-doing well this morning. Breathing well improved. Up and about. Eating well. Several questions were answered. Follow-up discussed. Discussion and discharge planning more than 35 minutes Consultation: Dr. Maryam Davis from pulmonary Physical examination: VITAL SIGNS: 98.1, 72, 17, 152/66, 93% room air GENERAL: Sitting on bed, less short of breath EYES: Pupils equal. Conjunctiva normal. NECK: JVD not raised; masses not palpable. HEART: First and second heart sounds are normal; no edema. LUNGS: Respiratory rate normal, improved air entry. ABDOMEN: Soft, nontender, liver spleen not palpable, no masses palpable. PSYCH: Alert and oriented x3; mood and affect normal. MUSCULAR skeletal: Evidence of OA, several joints INVESTIGATIONS, reviewed in the clinical context: Potassium 5 creatinine 0.6 Previous testing White count 19.7 hemoglobin 11.7 platelets 277 potassium 4.7 creatinine 0.73 EKG tracing personally reviewed by me-flipped T waves in anterior leads sinus rhythm Chest x-ray film personally reviewed by me-some hyperinflation and some left basilar infiltrate Assessment: -Left lower lobe pneumonia, suspect gram-negative organism, POA -Acute COPD exacerbation in a current smoker-POA -Chronic nicotine dependence patient cigarette smoker -Essential hypertension -Hyperlipidemia -Coronary artery disease with a bypass in 2002 and stent -Anxiety depression not otherwise specified -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 Alex Gross - outpatient -Primary osteoarthritis -AICD disposition: Home Patient Condition at Discharge: Stable Plan - Discharge Summary Discharge Rx Participant: No New Discharge Prescriptions: New Ipratropium-Albuterol Nebulize [Duoneb 0.5 mg-3 mg/3 ml Soln] 3 ml INHALATION TID #90 ml predniSONE 10 mg PO DAILY #30 tab Continue ALPRAZolam [Xanax] 0.25 mg PO TID PRN PRN Reason: Anxiety Cholecalciferol [Vitamin D3 (25 Mcg = 1000 Iu)] 1,000 unit PO DAILY@1800 Atorvastatin [Lipitor] 80 mg PO HS Lisinopril [Zestril] 10 mg PO DAILY@1200 carvediloL [Carvedilol] 25 mg PO BID Clopidogrel Bisulfate [Plavix] 75 mg PO DAILY #30 tab Cyanocobalamin (Vitamin B-12) [Vitamin B-12] 1,000 mcg PO DAILY Aspirin 81 mg PO DAILY #30 chewable Famotidine [Pepcid] 20 mg PO BID Discharge Medication List ALPRAZolam [Xanax] 0.25 mg PO TID PRN 06/06/15 [History] Cholecalciferol [Vitamin D3 (25 Mcg = 1000 Iu)] 1,000 unit PO DAILY@1800 06/06/15 [History] Atorvastatin [Lipitor] 80 mg PO HS 01/03/16 [History] Lisinopril [Zestril] 10 mg PO DAILY@1200 12/29/19 [History] carvediloL [Carvedilol] 25 mg PO BID 12/29/19 [History] Clopidogrel Bisulfate [Plavix] 75 mg PO DAILY #30 tab 12/30/19 [Rx] Cyanocobalamin (Vitamin B-12) [Vitamin B-12] 1,000 mcg PO DAILY 03/08/20 [History] Aspirin 81 mg PO DAILY #30 chewable 03/11/20 [Rx] Famotidine [Pepcid] 20 mg PO BID 04/04/20 [History] Ipratropium-Albuterol Nebulize [Duoneb 0.5 mg-3 mg/3 ml Soln] 3 ml INHALATION TID #90 ml 04/25/20 [Rx] predniSONE 10 mg PO DAILY #30 tab 04/25/20 [Rx] Follow up Appointment(s)/Referral(s): Nishant Huffman DO [Primary Care Provider] - 1-2 days (OFFICE WILL CALL WITH APPOINTMENT DATE AND TIME ) Jos Davis MD [STAFF PHYSICIAN] - 1 Week (OFFICE CURRENTLY CLOSED, PLEASE CALL AND SCHEDULE APPOINTMENT ) Patient Instructions/Handouts: COPD (Chronic Obstructive Pulmonary Disease) (DC) Discharge Disposition: HOME SELF-CARE
--- NOTE | 2020-04-26 21:36 | CDI ---
Documentation Clarification Form Date: 04/27/2020 From: Cachorro Wetzel Phone: If you have a question about this query, please contact Sherine Remy Director Of Public Safety at [phone] between 8am and 5pm. Admit Date: 04/23/2020 Discharge Date: 04/25/2020 Patient Name: Mona Purvis Visit Number: [id number] ATTENTION: The Clinical Documentation Specialists (CDI) and [facility] Coding Staff appreciate your assistance in clarifying documentation. Please respond to the clarification below the line at the bottom and electronically sign. The CDI & [facility] Coding staff will review the response and follow-up if needed. Please note: Queries are made part of the Legal Health Record. If you have any questions, please contact the author of this message via ITS. Dear Deacon Fitzgerald MD., The patient presented with the Pneumonia gram negative and COPD exacerbation History/Risk Factors: COPD, HTN, hyperlipidemia WBC : 19.7H Blood cultures: NG72 Vitals signs on admission: Temperature 98.3 F Pulse Rate 65 Respiratory 16 16 Rate Blood Pressure 124/58 O2 Sat by Pulse 95 Oximetry Treatment: Started IV ceftriaxone, Zithromax Per Dr.Ali pari [facility] notes mentioned "Early Sepsis". In your professional opinion, please clarify if these findings signify one of the following conditions, Condition Sepsis ruled out SIRS, without underlying infectious process Sepsis Severe Sepsis Septic Shock Other, please specify Unable to determine Sepsis ruled out MTDD
--- NOTE | 2020-04-30 22:03 | CDI ---
Documentation Clarification Form Date: 05/01/2020 From: Cachorro Wetzel Phone: If you have a question about this query, please contact Sherine Remy, Fishery [employer]ologist at [phone] between 8am and 5pm. Admit Date: 04/23/2020 Discharge Date: 04/25/2020 Patient Name: Mona Purvis Visit Number: [id number] ATTENTION: The Clinical Documentation Specialists (CDI) and [facility] Coding Staff appreciate your assistance in clarifying documentation. Please respond to the clarification below the line at the bottom and electronically sign. The CDI & [facility] Coding staff will review the response and follow-up if needed. Please note: Queries are made part of the Legal Health Record. If you have any questions, please contact the author of this message via ITS. Dear Deacon Fitzgerald MD., CHF is documented in your progress notes "Suspect component of diastolic heart failure as well". History/Risk Factors: COPD, HTN, Osteoarthritis, GERD, Hyperlipidemia VS/Pulse OX: Temp 98.1 F 04/25/20 07:24 Pulse 68 04/25/20 08:08 Resp 17 04/25/20 07:24 BP 152/66 04/25/20 07:24 Pulse Ox 93 L 04/25/20 07:24 Chest X Ray:Chronic changes with new bibasilar acute infiltrate and/or atelectasis and tiny left pleural effusion. Treatment: patient seen eval examined during the rounds cuff congestion shortness breath is better diuresing well, In your professional opinion, can you please clarify the acuity and type of CHF if known? Systolic Heart Failure: Acute Chronic Acute on Chronic Diastolic Heart Failure: Acute Chronic Acute on Chronic Systolic & Diastolic Heart Failure: Acute Chronic Acute on Chronic Heart Failure Unable to Determine Other, please specify No congestive heart failure MTDD
== END 2020-04-25 13:20 | disposition home or self-care (01) | DRG 178 ==
LOC: EC 11:45 → 4SSUR 13:35
PROVIDERS: ADMIT Hospitalist; ATTEND Hospitalist
DX: J15.6 Pneumonia due to other Gram-negative bacteria (principal); J44.0 Chronic obstructive pulmonary disease with (acute) lower respiratory infection; J44.1 Chronic obstructive pulmonary disease with (acute) exacerbation; E78.5 Hyperlipidemia, unspecified; I25.10 Atherosclerotic heart disease of native coronary artery without angina pectoris; F17.210 Nicotine dependence, cigarettes, uncomplicated; F41.8 Other specified anxiety disorders; I10 Essential (primary) hypertension; M19.91 Primary osteoarthritis, unspecified site; K21.9 Gastro-esophageal reflux disease without esophagitis; Z20.828 Contact with and (suspected) exposure to other viral communicable diseases; M51.26 Other intervertebral disc displacement, lumbar region; I25.2 Old myocardial infarction; Z79.899 Other long term (current) drug therapy; Z79.82 Long term (current) use of aspirin; Z79.02 Long term (current) use of antithrombotics/antiplatelets; Z86.73 Personal history of transient ischemic attack (TIA), and cerebral infarction without residual deficits; Z95.1 Presence of aortocoronary bypass graft; Z95.5 Presence of coronary angioplasty implant and graft; Z95.810 Presence of automatic (implantable) cardiac defibrillator; Z90.49 Acquired absence of other specified parts of digestive tract; Z98.890 Other specified postprocedural states; Z98.42 Cataract extraction status, left eye; Z98.41 Cataract extraction status, right eye; Z80.0 Family history of malignant neoplasm of digestive organs; Z80.51 Family history of malignant neoplasm of kidney; Z80.3 Family history of malignant neoplasm of breast
CPT/HCPCS: 36415; 71046; 80048; 80053; 82803; 83036; 83605; 83735; 85025; 85610; 85730; 87040; 93005; 94640; 96374; 96375; 99285

== ENCOUNTER → 2020-06-03 | Outpatient (CLI) | payer MEDICARE, BC ==
--- NOTE | 2020-06-03 16:00 | US ---
EXAMINATION TYPE: US bladder DATE OF EXAM: 06/03/2020 COMPARISON: NONE CLINICAL HISTORY: N13.9 OBSTRUCTION AND REFLUX UROPATHY. EXAM MEASUREMENTS: Post Void Residual Volume: 0 mL Color Doppler performed to assess ureteral jets. Right jet seen, left not seen. Normal Post Void Residual (less than 50ml): yes IMPRESSION: No abnormality noted
== END | disposition home or self-care (01) ==
LOC: RADUSWWP 14:40
PROVIDERS: ATTEND Family Medicine
DX: N13.9 Obstructive and reflux uropathy, unspecified (principal)
CPT/HCPCS: 76857

== ENCOUNTER → 2020-08-05 | Outpatient (CLI) | payer MEDICARE, BC ==
--- NOTE | 2020-08-05 14:51 | CT ---
EXAMINATION TYPE: CT angio chest DATE OF EXAM: 08/05/2020 2:39 PM COMPARISON: CTA chest August 02, 2019 HISTORY: Follow up for thoracic aortic aneurysm. CT DLP: 600 mGycm Automated exposure control for dose reduction was used. CONTRAST: CTA scan of the thorax is performed without and with IV Contrast, patient injected with 80ml mL of Is ovue 370, aneurysm protocol. 3D reconstructed images are created on an independent workstation and r eviewed.. FINDINGS: LUNGS: Mild underlying emphysematous change redemonstrated. Stable mild left basilar linear scarring. Occasional tiny calcified nodule or granuloma redemonstrated. No pleural effusion or pneumothorax se en. No new consolidation. MEDIASTINUM: Noncontrast images show no suspicious hyperdensity to suggest intramural hematoma. Ther e are no new greater than 1 cm noncalcified hilar or mediastinal lymph nodes. No pericardial effusi on is seen. Persistent ascending aortic aneurysm up to 5.4 cm in diameter on axial image 26 unchanged from prior study when accounting for technical differences. Aneurysm in the aortic arch up to 4.4 cm segment 19 unchanged from prior study when accounting for technical differences. Ectatic descending aorta with 3.9 cm aneurysm proximal aspect axial image 19 redemonstrated. Persistent dual-lead pacema ker/defibrillator. Overlying sternal wires and mediastinal clips from CABG procedure redemonstrated. OTHER: Roughly 2.5 cm thin-walled cyst anteriorly left kidney on axial image 61 redemonstrated. Slig ht underlying scoliotic curvature. Multilevel spurring. IMPRESSION: Stable ascending aortic aneurysm up to 5.4 cm on current study with extension into the pr oximal descending aorta. No significant interval change when accounting for technical differences.
== END | disposition home or self-care (01) ==
LOC: RADCTMAIN 13:07
PROVIDERS: ATTEND Thoracic Surgery (Cardiothoracic Vascular Surgery)
DX: I71.2 Thoracic aortic aneurysm, without rupture (principal)
CPT/HCPCS: 82565; 84520; 71275; 36415; Q9967

== ENCOUNTER → 2021-01-03 | Outpatient (CLI) | payer MEDICARE, BC ==
--- NOTE | 2021-01-03 15:30 | CT ---
EXAMINATION TYPE: CT angio head DATE OF EXAM: 01/03/2021 HISTORY: cerebral aneurysm COMPARISON: CT brain 03/08/2020 CT DLP: 1211.9 mGycm. Automated Exposure Control for Dose Reduction was Utilized. TECHNIQUE: CTA scan of the neck is performed with IV Contrast, patient injected with 100 mL of Isovu e 370, axial images are obtained, coronal and sagittal reformatted images are reviewed. Three-D recon structed images are created on an independent workstation and reviewed. Source images are reviewed. FINDINGS: [place]: Vertebral basilar system appears normal. Posterior cerebral vasculature is unremark able. Internal carotid arteries bifurcate normally into A1 and M1 segments. A2 segments are normal. T here appears to be some prominence of a left A2 segment on repeat constructed images. However, this a deborah appears normal on the source images. The anterior communicating artery is patent. Left Posterior communicating artery is patent. Right posterior communicating artery is patent. Other: Some periventricular chronic appearing white matter ischemic change is present. IMPRESSION: 1. No suspicious [place] of [place] changes.
== END | disposition home or self-care (01) ==
LOC: RADCTMAIN 08:47
PROVIDERS: ATTEND Psychiatry & Neurology Neurology
DX: I67.1 Cerebral aneurysm, nonruptured (principal)
CPT/HCPCS: 82565; 84520; 70496; 36415; Q9967

== ENCOUNTER → 2021-08-13 | Outpatient (CLI) | payer MEDICARE, BC ==
--- NOTE | 2021-08-13 14:46 | CT ---
EXAMINATION TYPE: CT angio chest DATE OF EXAM: 08/13/2021 COMPARISON: Prior CT aorta August 05, 2020 and older study August 02, 2019 HISTORY: Ascending aortic aneurysm CT DLP: 544.7 mGycm. Automated Exposure Control for Dose Reduction was Utilized. CONTRAST: CTA scan of the thorax is performed without and with IV Contrast, patient injected with 100 mL of Iso ni 370, aneurysm protocol. . 3D reconstructed images are created on an independent workstation and r eviewed. FINDINGS: LUNGS: Lungs remain grossly clear. Stable mild left basilar linear scarring axial image 48. Occasiona l tiny calcified nodule or granuloma in the right mid to lower lung redemonstrated. No pleural effusi on or pneumothorax seen. No new consolidation. MEDIASTINUM: Noncontrast images show no suspicious hyperdensity to suggest intramural hematoma. Sati sfactory enhancement of the central pulmonary arteries. Persistent ascending aortic aneurysm up to ne jeff 5.7 cm cm in diameter on axial image 27 there is slightly more prominent from most recent prior study . Aneurysm in the aortic arch up to 4.2 cm axial image 18 there is unchanged from prior study w hen accounting for technical differences. Normal 3 vessel origins from arch redemonstrated. Ectatic d escending aorta with 3.8 cm aneurysm proximal aspect axial image 18 is redemonstrated. Persistent jalen l-lead pacemaker/defibrillator. Overlying sternal wires and mediastinal clips from CABG procedure red emonstrated. There are no new greater than 1 cm noncalcified hilar or mediastinal lymph nodes. No p ericardial effusion is seen. OTHER: Roughly 2.5 cm thin-walled cyst anteriorly left kidney on axial image 59 measures redemonstra lissa. Osseous structures are demineralized. Slight underlying scoliotic curvature. Mild multilevel spu rring redemonstrated. IMPRESSION: Ascending aortic aneurysm up to 5.7 cm on current study with extension into the proximal descending aorta is slightly increased in size from prior studies.
== END | disposition home or self-care (01) ==
LOC: RADCTMAIN 13:11
PROVIDERS: ATTEND Thoracic Surgery (Cardiothoracic Vascular Surgery)
DX: I71.2 Thoracic aortic aneurysm, without rupture (principal)
CPT/HCPCS: 82565; 84520; 71275; 36415; Q9967

== ENCOUNTER 2021-10-02 17:25 | Inpatient (IN) | payer MEDICARE, BC ==
--- NOTE | 2021-10-02 19:10 | ED ---
General Adult HPI - General Chief complaint: Recheck/Abnormal Lab/Rx Stated complaint: Abd Labs Time Seen by Provider: 10/02/21 18:44 Source: patient Mode of arrival: wheelchair Limitations: no limitations - History of Present Illness Initial comments: Dictation was produced using [employer] dictation software. please excuse any grammatical, word or spelling errors. Chief Complaint: Patient is 81-year-old female she has past medical history coronary artery disease, dyslipidemia hypertension. She presents to the emergency department for low hemoglobin. History of Present Illness: Patient is a 81-year-old female she was seen at an [facility] earlier today for cough, generalized weakness. She had workup done at the urgent care and was diagnosed with urinary tract infection. She also had some blood work performed. She was given a prescription for antibiotics to treat UTI. She was discharged home and she'll call several hours later told her to come to the ER for abnormal blood work. She was told that her hemoglobin is low. They did not tell her a specific number. Patient denies any GI bleed. She has a cough and some shortness of breath. They did not test her for colon but they did do an x-ray. Patient denies any constitutional symptoms. She has no pain complaints. The ROS documented in this emergency department record has been reviewed and confirmed by me. Those systems with pertinent positive or negative responses have been documented in the HPI. All other systems are other negative and/or noncontributory. PHYSICAL EXAM: General Impression: Alert and oriented x3, not in acute distress HEENT: Normocephalic atraumatic, extra-ocular movements intact, pupils equal and reactive to light bilaterally, mucous membranes moist. Cardiovascular: Heart regular rate and rhythm Chest: Able to complete full sentences, no retractions, no tachypnea, clear to auscultation bilaterally Abdomen: abdomen soft, non-tender, non-distended, no organomegaly Musculoskeletal: Pulses present and equal in all extremities, no peripheral edema Motor: no focal deficits noted Neurological: CN II-XII grossly intact, no focal motor or sensory deficits noted Skin: Intact with no visualized rashes Psych: Normal affect and mood ED course: 81-year-old female presents to the emergency department for abnormal outpatient lab. Told that she had low hemoglobin however was not given a specific number. Patient is having symptoms of GI bleed. No abdominal pain. She does have nausea but no vomiting. She has had URI symptoms recently. She was diagnosed with a UTI at the urgent care and was prescribed antibiotics there. Laboratory evaluation obtained. Hemoglobin is 8.1. Last hemoglobin was from 2 years ago and was found to be 11.7. Coag panel is unremarkable. Metabolic panel is within acceptable limits. Four panel viral PCR is negative. stool occult blood is positive. His physician options were discussed. Patient is agreeable for hospitalization with GI consultation. Patient given IV Protonix. EKG interpretation: Ventricular rate 69, sinus rhythm,. 165, care is 108, QTC 374. No MD prolongation, no QTC prolongation, no ST or T-wave changes noted. EKG compared to to 01/06/2020 showing no changes. Overall, this EKG is unremarkable - Related Data Home Medications Medication Instructions Recorded Confirmed ALPRAZolam [Xanax] 0.25 mg PO TID PRN 06/06/15 04/23/20 Cholecalciferol [Vitamin D3 (25 1,000 unit PO DAILY@1800 06/06/15 04/23/20 Mcg = 1000 Iu)] Atorvastatin [Lipitor] 80 mg PO HS 01/03/16 04/23/20 Lisinopril [Zestril] 10 mg PO DAILY@1200 12/29/19 04/23/20 carvediloL 25 mg PO BID 12/29/19 04/23/20 Cyanocobalamin (Vitamin B-12) 1,000 mcg PO DAILY 03/08/20 04/23/20 [Vitamin B-12] Famotidine [Pepcid] 20 mg PO BID 04/04/20 04/23/20 Previous Rx's Medication Instructions Recorded Clopidogrel Bisulfate [Plavix] 75 mg PO DAILY #30 tab 12/30/19 Aspirin 81 mg PO DAILY #30 chewable 03/11/20 Ipratropium-Albuterol Nebulize 3 ml INHALATION TID #90 ml 04/25/20 [Duoneb 0.5 mg-3 mg/3 ml Soln] predniSONE 10 mg PO DAILY #30 tab 04/25/20 Allergies Allergy/AdvReac Type Severity Reaction Status Date / Time No Known Allergies Allergy Verified 10/02/21 18:07 Review of Systems ROS Statement: Those systems with pertinent positive or pertinent negative responses have been documented in the HPI. ROS Other: All systems not noted in ROS Statement are negative. 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, 02/2020 TIA, caratid stenosis with L caratid endartectomy, pt states she has had irregular heart beat in past but cannot recall type, vertigo, balance issues, back pain/disc problems, benign colon polyp Last Myocardial Infarction Date:: 2000 History of Any Multi-Drug Resistant Organisms: None Reported Past Surgical History: AICD, Appendectomy, Bowel Resection, Cholecystectomy, Coronary Bypass/CABG, Heart Catheterization With Stent, Hernia Repair, Orthopedic Surgery Additional Past Surgical History / Comment(s): Arch studies, 2000 PCI with stents, 2002 CABG-3 vessel, 2002 AICD, AICD gen changes, DFTs, 2002 L carotid endartectomy, bowel resection for benign flat polyp, abdominal hernia repair, L hip fracture with surgery, L arm benign lesion removed, colonoscopies/polyps Past Anesthesia/Blood Transfusion Reactions: No Reported Reaction, Motion Sickness Date of Last Stent Placement:: 2000 Type of Cardiac Device: AICD Device Placement Date:: 2002- Past Psychological History: Anxiety Smoking Status: Current every day smoker Past Alcohol Use History: None Reported Past Drug Use History: None Reported - Past Family History Sister(s) Family Medical History: Cancer Additional Family Medical History / Comment(s): Sister had breast/bladder cancers. Son(s) Family Medical History: Cancer Additional Family Medical History / Comment(s): pancreatic cancer Father Family Medical History: Cancer Additional Family Medical History / Comment(s): Bowel cancer. Mother Family Medical History: Cancer Additional Family Medical History / Comment(s): Mother had bowel cancer twice and 2nd time metastasized to her kidney. General Exam Limitations: no limitations Course Vital Signs 10/02/21 10/02/21 10/02/21 18:04 19:04 19:11 Temperature 97.9 F Pulse Rate 66 Respiratory 16 18 18 Rate Blood Pressure 110/51 138/67 O2 Sat by Pulse 96 Oximetry Medical Decision Making - Lab Data Result diagrams: 10/02/21 19:04 10/02/21 19:04 Lab Results 10/02/21 10/02/21 10/02/21 Range/Units 19:04 19:04 19:04 WBC 10.1 (3.8-10.6) k/uL RBC 2.84 L (3.80-5.40) m/uL Hgb 8.1 L (11.4-16.0) gm/dL Hct 25.1 L (34.0-46.0) % MCV 88.1 (80.0-100.0) fL MCH 28.3 (25.0-35.0) pg MCHC 32.1 (31.0-37.0) g/dL RDW 15.0 (11.5-15.5) % Plt Count 203 (150-450) k/uL MPV 8.4 Neutrophils % 74 % Lymphocytes % 15 % Monocytes % 7 % Eosinophils % 2 % Basophils % 0 % Neutrophils # 7.4 (1.3-7.7) k/uL Lymphocytes # 1.5 (1.0-4.8) k/uL Monocytes # 0.7 (0-1.0) k/uL Eosinophils # 0.2 (0-0.7) k/uL Basophils # 0.0 (0-0.2) k/uL Hypochromasia Slight PT 10.8 (9.0-12.0) sec INR 1.0 (<1.2) APTT 26.9 (22.0-30.0) sec Sodium 137 (137-145) mmol/L Potassium 4.3 (3.5-5.1) mmol/L Chloride 104 (98-107) mmol/L Carbon Dioxide 24 (22-30) mmol/L Anion Gap 9 mmol/L BUN 23 H (7-17) mg/dL Creatinine 0.90 (0.52-1.04) mg/dL Est GFR (CKD-EPI)AfAm 71 (>60 ml/min/1.73 sqM) Est GFR (CKD-EPI)NonAf 61 (>60 ml/min/1.73 sqM) Glucose 105 H (74-99) mg/dL Calcium 9.9 (8.4-10.2) mg/dL Total Bilirubin 1.6 H (0.2-1.3) mg/dL AST 29 (14-36) U/L ALT 17 (4-34) U/L Alkaline Phosphatase 89 (38-126) U/L Total Protein 6.6 (6.3-8.2) g/dL Albumin 4.2 (3.5-5.0) g/dL Stool Occult Blood (Negative) Influenza Type A (PCR) (Not Detectd) Influenza Type B (PCR) (Not Detectd) RSV (PCR) (Not Detectd) SARS-CoV-2 (PCR) (Not Detectd) Blood Type Blood Type Confirm Blood Type Recheck Bld Type Recheck Status Antibody Screen Spec Expiration Date 10/02/21 10/02/21 10/02/21 Range/Units 19:04 19:19 19:22 WBC (3.8-10.6) k/uL RBC (3.80-5.40) m/uL Hgb (11.4-16.0) gm/dL Hct (34.0-46.0) % MCV (80.0-100.0) fL MCH (25.0-35.0) pg MCHC (31.0-37.0) g/dL RDW (11.5-15.5) % Plt Count (150-450) k/uL MPV Neutrophils % % Lymphocytes % % Monocytes % % Eosinophils % % Basophils % % Neutrophils # (1.3-7.7) k/uL Lymphocytes # (1.0-4.8) k/uL Monocytes # (0-1.0) k/uL Eosinophils # (0-0.7) k/uL Basophils # (0-0.2) k/uL Hypochromasia PT (9.0-12.0) sec INR (<1.2) APTT (22.0-30.0) sec Sodium (137-145) mmol/L Potassium (3.5-5.1) mmol/L Chloride (98-107) mmol/L Carbon Dioxide (22-30) mmol/L Anion Gap mmol/L BUN (7-17) mg/dL Creatinine (0.52-1.04) mg/dL Est GFR (CKD-EPI)AfAm (>60 ml/min/1.73 sqM) Est GFR (CKD-EPI)NonAf (>60 ml/min/1.73 sqM) Glucose (74-99) mg/dL Calcium (8.4-10.2) mg/dL Total Bilirubin (0.2-1.3) mg/dL AST (14-36) U/L ALT (4-34) U/L Alkaline Phosphatase (38-126) U/L Total Protein (6.3-8.2) g/dL Albumin (3.5-5.0) g/dL Stool Occult Blood (Negative) Influenza Type A (PCR) Not Detected (Not Detectd) Influenza Type B (PCR) Not Detected (Not Detectd) RSV (PCR) Not Detected (Not Detectd) SARS-CoV-2 (PCR) Not Detected (Not Detectd) Blood Type O Positive Blood Type Confirm O Positive Blood Type Recheck No Previous Record Bld Type Recheck Status CABO Indicated Antibody Screen NEGATIVE Spec Expiration Date 10/05/2021 - 230310/02/21 Range/Units 20:21 WBC (3.8-10.6) k/uL RBC (3.80-5.40) m/uL Hgb (11.4-16.0) gm/dL Hct (34.0-46.0) % MCV (80.0-100.0) fL MCH (25.0-35.0) pg MCHC (31.0-37.0) g/dL RDW (11.5-15.5) % Plt Count (150-450) k/uL MPV Neutrophils % % Lymphocytes % % Monocytes % % Eosinophils % % Basophils % % Neutrophils # (1.3-7.7) k/uL Lymphocytes # (1.0-4.8) k/uL Monocytes # (0-1.0) k/uL Eosinophils # (0-0.7) k/uL Basophils # (0-0.2) k/uL Hypochromasia PT (9.0-12.0) sec INR (<1.2) APTT (22.0-30.0) sec Sodium (137-145) mmol/L Potassium (3.5-5.1) mmol/L Chloride (98-107) mmol/L Carbon Dioxide (22-30) mmol/L Anion Gap mmol/L BUN (7-17) mg/dL Creatinine (0.52-1.04) mg/dL Est GFR (CKD-EPI)AfAm (>60 ml/min/1.73 sqM) Est GFR (CKD-EPI)NonAf (>60 ml/min/1.73 sqM) Glucose (74-99) mg/dL Calcium (8.4-10.2) mg/dL Total Bilirubin (0.2-1.3) mg/dL AST (14-36) U/L ALT (4-34) U/L Alkaline Phosphatase (38-126) U/L Total Protein (6.3-8.2) g/dL Albumin (3.5-5.0) g/dL Stool Occult Blood Positive H (Negative) Influenza Type A (PCR) (Not Detectd) Influenza Type B (PCR) (Not Detectd) RSV (PCR) (Not Detectd) SARS-CoV-2 (PCR) (Not Detectd) Blood Type Blood Type Confirm Blood Type Recheck Bld Type Recheck Status Antibody Screen Spec Expiration Date Disposition Clinical Impression: Symptomatic anemia, GI bleed Disposition: ADMITTED IP TO THIS [facility] Condition: Serious Referrals: Nishant Huffman DO [Primary Care Provider] - 1-2 days
[2021-10-02 19:17] LABS: Basophils % (A) 0 %; Eosinophils # (A) 0.2 k/uL (0-0.7); Eosinophils % (A) 2 %; HCT 25.1 % (34.0-46.0); HGB 8.1 gm/dL (11.4-16.0); Hypochromasia Slight; Lymphocytes # (A) 1.5 k/uL (1.0-4.8); Lymphocytes % (A) 15 %; MCH 28.3 pg (25.0-35.0); MCHC 32.1 g/dL (31.0-37.0); MCV 88.1 fL (80.0-100.0); Mean Platelet Volume 8.4; Monocytes # (A) 0.7 k/uL (0-1.0); Monocytes % (A) 7 %; Neutrophils # (A) 7.4 k/uL (1.3-7.7); Neutrophils % (A) 74 %; Platelet Count 203 k/uL (150-450); RBC 2.84 m/uL (3.80-5.40); WBC 10.1 k/uL (3.8-10.6)
[2021-10-02 19:29] LABS: Albumin 4.2 g/dL (3.5-5.0); Calcium 9.9 mg/dL (8.4-10.2); Potassium 4.3 mmol/L (3.5-5.1); Total Bilirubin 1.6 mg/dL (0.2-1.3); Total Protein 6.6 g/dL (6.3-8.2)
[2021-10-02 19:37] LABS: Partial Thromboplastin Time 26.9 sec (22.0-30.0); Prothrombin Time 10.8 sec (9.0-12.0)
[2021-10-02 20:22] LABS: Influenza A Not Detected (Not Detectd); Influenza B Not Detected (Not Detectd)
[2021-10-02] MEDS ORDERED: PANTOPRAZOLE 40 MG/10 ML VIAL IVP STA (20:57)
[2021-10-02] MEDS ORDERED: NALOXONE 0.4 MG/ML 1 ML VIAL IV PRN (20:57)
[2021-10-02] MEDS: SODIUM CHLORIDE 0.9% 1,000 ML IV SCH (22:06)
[2021-10-03] MEDS: IPRATROPIUM-ALBUTEROL 3 ML NEB INHALATION PRN ×2 (00:41→09:48)
[2021-10-03 08:05] LABS: HGB 7.5 gm/dL (11.4-16.0); Hypochromasia Marked; MCH 28.2 pg (25.0-35.0); MCHC 31.2 g/dL (31.0-37.0); MCV 90.3 fL (80.0-100.0); Mean Platelet Volume 8.6; Platelet Count 189 k/uL (150-450); RBC 2.66 m/uL (3.80-5.40)
[2021-10-03 08:23] LABS: African American GFR (CKD) 69 (>60 ml/min/1.73 sqM); Anion Gap 6 mmol/L; Blood Urea Nitrogen 20 mg/dL (7-17); Calcium 9.2 mg/dL (8.4-10.2); Carbon Dioxide 27 mmol/L (22-30); Chloride 107 mmol/L (98-107); Glucose 98 mg/dL (74-99); Non-African American GFR(CKD) 60 (>60 ml/min/1.73 sqM); Potassium 4.1 mmol/L (3.5-5.1); Sodium 140 mmol/L (137-145)
[2021-10-03] MEDS: SODIUM CHLORIDE 0.9% 1,000 ML IV SCH ×2 (08:51→22:00)
[2021-10-03] MEDS ORDERED: PANTOPRAZOLE 40 MG/10 ML VIAL IV SCH (09:00)
--- NOTE | 2021-10-03 10:55 | P.CONS ---
History of Present Illness - Reason for Consult Consult date: 10/03/21 GI bleed Requesting physician: Deacon Pool - Chief Complaint Weakness, low hemoglobin - History of Present Illness This is a pleasant 81-year-old white female who presented to the emergency department active by her family physician. She has a past medical history signi ficant for coronary artery disease, dyslipidemia, and hypertension. She states she had not been feeling well and had gone to urgent care for cough and shortness of breath and then had a follow-up with her physician. States she was feeling somewhat better but still feeling weak and tired. She had blood work done and was found to be anemic and told to come to the emergency room for further evaluation. She states that she has been having intermittent black stoo. She believes last time she had it was almost 2 weeks ago. She does have a history of a bowel resection for colon polyps states her last colonoscopy was in [address] Sifuentes significant for colon polyps. She denies any previous history of anemia. No history of peptic ulcer disease or prior EGD. She denies any NSAID use no anticoagulation other than Plavix and low-dose aspirin. Last dose of Plavix was yesterday morning. She denies any abdominal pain, nausea vomiting. Denies any maroon colored stool or bright red blood per rectum. She did have heme-positive stool. Admitting hemoglobin 8.1 repeat labs today show WBC 7.0 hemoglobin 7.5 hematocrit 24 platelet count 189,000 INR 1.0 BUN 20 total bilirubin 1.6 AST 29 AST 17 alk phos 89 Review of Systems REVIEW OF SYSTEMS: CARDIOPULMONARY: No chest pain. Mild shortness of breath and cough. Gastrointestinal: No abdominal pain. No nausea or vomiting. No hematemesis, coffee-ground emesis. Dark black stool intermittent, last episode approximately 2 weeks ago. GENITOURINARY: No dysuria or hematuria. MUSCULOSKELETAL: Reports normal range of motion., Joint pain. SKIN: No rashes. No jaundice. ENDOCRINE: No chills, fevers. No excessive weight gain or loss. No polydipsia or polyuria. PSYCHIATRIC: Unremarkable. NEUROLOGY: No change in mental status. Denies dizziness, headache. ENT: Vision unremarkable. CONSTITUTIONAL: No recent weight loss. No fever, chills, night sweats. Weakness, fatigue. Past Medical History Past Medical History: Coronary Artery Disease (CAD), CVA/TIA, GERD/Reflux, Hyperlipidemia, Hypertension, Myocardial Infarction ([place]), Osteoarthritis (OA), Vascular Disorder Additional Past Medical History / Comment(s): 1998 CVA with no residual, 02/2020 TIA, caratid stenosis with L caratid endartectomy, pt states she has had irregular heart beat in past but cannot recall type, vertigo, balance issues, back pain/disc problems, benign colon polyp Last Myocardial Infarction Date:: 2000 History of Any Multi-Drug Resistant Organisms: None Reported Past Surgical History: AICD, Appendectomy, Bowel Resection, Cholecystectomy, Coronary Bypass/CABG, Heart Catheterization With Stent, Hernia Repair, Orthopedic Surgery Additional Past Surgical History / Comment(s): Arch studies, 2000 PCI with stents, 2002 CABG-3 vessel, 2002 AICD, AICD gen changes, DFTs, 2002 L carotid endartectomy, bowel resection for benign flat polyp, abdominal hernia repair, L hip fracture with surgery, L arm benign lesion removed, colonoscopies/polyps Past Anesthesia/Blood Transfusion Reactions: No Reported Reaction, Motion Sickness Date of Last Stent Placement:: 2000 Type of Cardiac Device: AICD Device Placement Date:: 2002- Past Psychological History: Anxiety Additional Psychological History / Comment(s): Pt resides with her spouse and child. She uses no assistive device. She no longer drives, her spouse drives. Smoking Status: Current every day smoker Past Alcohol Use History: None Reported Additional Past Alcohol Use History / Comment(s): Pt started smoking in 1969 and was a ppd smoker but cut down to 5 cigarettes a day Past Drug Use History: None Reported Additional Drug Use History / Comment(s): . - Past Family History Sister(s) Family Medical History: Cancer Additional Family Medical History / Comment(s): Sister had breast/bladder cancers. Son(s) Family Medical History: Cancer Additional Family Medical History / Comment(s): pancreatic cancer Father Family Medical History: Cancer Additional Family Medical History / Comment(s): Bowel cancer. Mother Family Medical History: Cancer Additional Family Medical History / Comment(s): Mother had bowel cancer twice and 2nd time metastasized to her kidney. Medications and Allergies Home Medications Medication Instructions Recorded Confirmed Type Cholecalciferol [Vitamin D3 (25 25 mcg PO DAILY 06/06/15 10/02/21 History Mcg = 1000 Iu)] Atorvastatin [Lipitor] 80 mg PO HS 01/03/16 10/02/21 History Lisinopril [Zestril] 10 mg PO DAILY 12/29/19 10/02/21 History carvediloL 25 mg PO BID 12/29/19 10/02/21 History Clopidogrel Bisulfate [Plavix] 75 mg PO DAILY #30 tab 12/30/19 10/02/21 Rx Cyanocobalamin (Vitamin B-12) 1,000 mcg PO DAILY 03/08/20 10/02/21 History [Vitamin B-12] Aspirin 81 mg PO DAILY #30 chewable 03/11/20 10/02/21 Rx Famotidine [Pepcid] 20 mg PO BID 04/04/20 10/02/21 History ALPRAZolam [Xanax] 0.5 mg PO BID PRN 10/02/21 10/02/21 History Budesonide [Pulmicort] 0.5 mg INHALATION RT-BID 10/02/21 10/02/21 History Cefuroxime Axetil [Ceftin] 500 mg PO BID 10/02/21 10/02/21 History Ipratropium-Albuterol Nebulize 3 ml INHALATION RT-TID 10/02/21 10/02/21 History [Duoneb 0.5 mg-3 mg/3 ml Soln] calcium polycarbophiL [Fibercon] 625 mg PO DAILY 10/02/21 10/02/21 History Allergies Allergy/AdvReac Type Severity Reaction Status Date / Time No Known Allergies Allergy Verified 10/02/21 21:26 Physical Exam Vitals: Vital Signs Temp Pulse Pulse Resp BP BP Pulse Ox 10/03/21 07:53 98.6 F 70 19 117/52 94 L 10/03/21 05:16 70 18 98/49 98 10/03/21 00:41 68 10/02/21 22:06 68 16 119/84 97 10/02/21 19:11 18 10/02/21 19:04 18 138/67 10/02/21 18:04 97.9 F 66 16 110/51 96 Intake and Output 10/02/21 10/03/21 10/03/21 22:59 06:59 14:59 Other: Weight 72.575 kg 72.575 kg General appearance: The patient is alert, oriented, appears in no acute distress. HET: Head is normocephalic and atraumatic. Conjunctiva pink. Sclera anicteric. Neck: Supple without lymphadenopathy. Trachea midline. Heart: S1 S2. Regular rate and rhythm. Lungs: Clear to auscultation. Abdomen: Soft, nontender, nondistended with bowel sounds. No guarding or rigidity. Skin: No rashes. No jaundice. Extremities: Normal skin color and turgor. No pedal edema. Neurological: No focal deficits. Alert and oriented x3. Results CBC & Chem 7: 10/03/21 07:42 10/03/21 07:42 Labs: Abnormal Lab Results - Last 24 Hours (Table) 10/02/21 10/02/21 10/02/21 Range/Units 19:04 19:04 20:21 RBC 2.84 L (3.80-5.40) m/uL Hgb 8.1 L (11.4-16.0) gm/dL Hct 25.1 L (34.0-46.0) % BUN 23 H (7-17) mg/dL Glucose 105 H (74-99) mg/dL Total Bilirubin 1.6 H (0.2-1.3) mg/dL Stool Occult Blood Positive H (Negative) 10/03/21 Range/Units 07:42 RBC 2.66 L (3.80-5.40) m/uL Hgb 7.5 L (11.4-16.0) gm/dL Hct 24.0 L (34.0-46.0) % BUN (7-17) mg/dL Glucose (74-99) mg/dL Total Bilirubin (0.2-1.3) mg/dL Stool Occult Blood (Negative) Assessment and Plan (1) Symptomatic anemia Narrative/Plan: 81-year-old who came in to the emergency department as directed by her PCP. She was noted to be anemic outpatient and told to come for further evaluation. Patient recently was seen at urgent care for cough and shortness of breath. She was treated with antibiotics and steroids. Patient denies any previous history of anemia, no prior blood transfusion. No history of GI bleed. She is up-to-date with colonoscopies and please her last was 2018 with which she states is significant for colon polyps. She did state that she did have a small bowel resection related to concerning colon polyps in the past. She is not had any history of peptic ulcer disease or upper GI bleed. No previous EGD. She does take Plavix for coronary artery disease and low dose aspirin, no other anticoagulation or NSAID use. She has reported intermittent black stools believes last time was about 2 weeks ago. Possible etiologies include peptic ulcer disease, gastritis, esophagitis, AVM, or other possible etiologies. Will proceed with upper endoscopy today. Protonix 40 mg twice a day GI prophylaxis. Current Visit: Yes Status: Acute Code(s): D64.9 - ANEMIA, UNSPECIFIED SNOMED Code(s): 198897727 (2) Heme positive stool Current Visit: Yes Status: Acute Code(s): R19.5 - OTHER FECAL ABNORMALITIES SNOMED Code(s): 25492490 Plan: 1. Keep nothing by mouth 2. Protonix 40 mg twice a day 3. Will proceed with EGD, procedure discussed with patient including risks and benefits. Patient is willing to proceed. Thank you for allowing us to participate in the care of the patient, the GI service will sign off, gastroenterology will not be available at the hospital th is weekend and through next week. If further evaluation by gastroenterology is required the patient will need transfer as per the primary team's discretion. Dr. Lalit Mo I agree with the dictator's note, documented as a scribe by Andra Cuevas.
[2021-10-03] MEDS: NICOTINE 7MG/24HR PATCH TRANSDERM SCH (11:45)
[2021-10-03] MEDS ORDERED: LIDOCAINE 1% INJ 10MG/ML (20 ML MDV) ONE (13:03)
[2021-10-03] MEDS ORDERED: PROPOFOL 10 MG/ML 20 ML VIAL IV ONE (13:03)
[2021-10-03] MEDS: IPRATROPIUM-ALBUTEROL 3 ML NEB INHALATION SCH ×2 (13:08→21:52)
[2021-10-03] MEDS: BUDESONIDE 0.5 MG/2 ML NEBU INHALATION SCH ×2 (13:08→21:52)
--- NOTE | 2021-10-03 13:28 | P.PCN ---
Date of Procedure: 10/03/21 Procedure(s) Performed: BRIEF HISTORY: Patient is a 81-year-old, pleasant, white female admitted hospital with severe symptomatic anemia with a hemoglobin of 7.5 g/dL. She is been having intermittent black stools for the last 2 weeks' duration. No recent NSAID use. No prior history of peptic ulcer disease. He scheduled for an upper endoscopy to evaluate for upper GI source of bleeding.. She had a colonoscopy by Dr. Sifuentes in 2019 and was noted to have small polyps. PROCEDURE PERFORMED: Esophagogastroduodenoscopy with biopsy. PREOPERATIVE DIAGNOSIS: Severe symptomatic anemia and black tarry stools of 2 weeks duration. IV sedation per anesthesia. PROCEDURE: After informed consent was obtained, the patient was brought into the endoscopy unit. IV sedation was administered by Anesthesia under continuous monitoring. Initially the Olympus GIF-140 video endoscope was inserted into the mouth. Esophagus intubated without any difficulty. It was gradually advanced into the stomach and duodenum and carefully examined. The bulb and the second part of the duodenum appeared normal. The scope at this time was withdrawn to the stomach, adequately insufflated with air, and upon careful examination, mucosa of the antrum several scattered erosions and biopsies were done from this area. The, body, cardia and the fundus appeared normal. The scope was then withdrawn into the esophagus. The GE junction was located at 39 cm from the incisors. The esophagus appeared normal. There were no erosions or ulcerations seen and the patient tolerated the procedure well. IMPRESSION: 1. Several scattered erosions in the antrum consistent with erosive gastritis but no active bleeding. 2. No evidence of peptic ulcer disease or esophagitis. RECOMMENDATIONS: The findings of this examination were discussed with the patient . Continue with Protonix 40 mg daily. Monitor CBC closely. Start iron supplements daily. Follow up in office in 2-3 weeks.. No plans on any colonoscopy at this time. Will consider small bowel capsule endoscopy if she continues to have persistent anemia on an outpatient basis.
[2021-10-03 16:18] LABS: % Iron Saturation 4.51 (12.00-45.00); Ferritin 17.4 ng/mL (10.0-291.0); Iron 20 ug/dL (50-170); Total Iron Binding Capacity 441 ug/dL (228-460); Vitamin B12 >2000.0 pg/mL (200.0-944.0)
--- NOTE | 2021-10-03 17:55 | P.HPIM ---
History of Present Illness H&P Date: 10/03/21 Chief Complaint: Unwell History of presenting complaint: This is a very pleasant 81-year-old patient of Dr. Huffman. She also follows with neurologist Dr. Cobb. Chronic stable medical conditions include hypertension, hyperlipidemia, herniated disc in the back, coronary artery disease with bypass. COPD Patient for about a week has not been feeling well. Decreased appetite. Some chills. Some wheezing and cough. Smokes about 5 cigarettes a day. Patient did notice dark stools about a month ago. She felt it could have been from the cookies or brownies she had eaten. She went on to family doctor. Was found to have a hemoglobin that was low. Also at the urgent care she was found to have evidence of UTI. No abdominal pain. Review of systems: GEN.: Decreased appetite chills EYES: None HEENT: None NECK: None RESPIRATORY: As above CARDIOVASCULAR: None GASTROINTESTINAL: As above GENITOURINARY: Strong urine MUSCULOSKELETAL: Some joint pains] LYMPHATICS: None HEMATOLOGICAL: None PSYCHIATRY: None NEUROLOGICAL: None Past medical history to include: Coronary artery disease, stroke, GERD, hypertension, hyperlipidemia, back pain with herniated disc carotid bypass in 2002 AICD, anxiety. Social history: Video. Smoking since 9069 about a pack a day now down to a about 5 cigarettes a day. No alcohol Family history: Bowel cancer Physical examination: VITAL SIGNS: 98.6, 70, 19, 117/52, 94% room air GENERAL: BMI 27.5, laying in bed, awake a bit tired EYES: Pupils equal. Conjunctiva normal. HEENT: External appearance of nose and ears normal, oral cavity grossly normal. NECK: JVD not raised; masses not palpable. HEART: First and second heart sounds are normal; no edema. LUNGS: Respiratory rate increased, decreased breaths breath sounds. ABDOMEN: Soft, nontender, liver spleen not palpable, no masses palpable. PSYCH: Alert and oriented x3; mood and affect normal. Musculoskeletal: Evidence of OA, several joints NEUROLOGICAL: Cranial nerves grossly intact; no facial asymmetry, power and sensation grossly intact. LYMPHATICS: No lymph nodes palpable in the axilla and neck INVESTIGATIONS, reviewed in the clinical context: White count 17 hemoglobin 7.5 platelets 49 potassium 4.1 creatinine 0.91 EKG tracing personally reviewed by tn-ST segment depression inferolateral leads. Admission labs: Hemoglobin 8.1 Stool occult blood positive Previous labs: Hemoglobin 11.7 on April 2020 Assessment and plan: -Acute GI bleed in a patient who reports about stools about a month ago. Found to have normocytic anemia. GI consulted. Pending EGD this afternoon. Seasonal H&H. -Acute COPD exacerbation in a current smoker DuoNeb 3 times a day. Inhaled Pulmicort -Chronic nicotine dependence patient cigarette smoker Nicotine patch -Essential hypertension Currently blood pressure running of the lower side. Hold Zestril. -Hyperlipidemia Lipitor 80 mg daily at bedtime -Coronary artery disease with a bypass in 2002 and stent Lipitor, aspirin and Plavix currently on hold. 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 Alex Gross - outpatient -Primary osteoarthritis Tylenol when necessary -AICD -Acute UTI with cystitis. Tested positive outpatient at urgent care. Start Keflex 500 mg 4 times a day GI consult. EGD this afternoon. DuoNeb. Inhaled Pulmicort. Keflex. Hold aspirin and Plavix. Cutback Coreg to 3.125 twice daily. Hold lisinopril. PPI. 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, 02/2020 TIA, caratid stenosis with L caratid endartectomy, pt states she has had irregular heart beat in past but cannot recall type, vertigo, balance issues, back pain/disc problems, benign colon polyp Last Myocardial Infarction Date:: 2000 History of Any Multi-Drug Resistant Organisms: None Reported Past Surgical History: AICD, Appendectomy, Bowel Resection, Cholecystectomy, Coronary Bypass/CABG, Heart Catheterization With Stent, Hernia Repair, Orthopedic Surgery Additional Past Surgical History / Comment(s): Arch studies, 2000 PCI with stents, 2002 CABG-3 vessel, 2002 AICD, AICD gen changes, DFTs, 2002 L carotid endartectomy, bowel resection for benign flat polyp, abdominal hernia repair, L hip fracture with surgery, L arm benign lesion removed, colonoscopies/polyps Past Anesthesia/Blood Transfusion Reactions: No Reported Reaction, Motion Sickness Date of Last Stent Placement:: 2000 Type of Cardiac Device: AICD Device Placement Date:: 2002- Past Psychological History: Anxiety Additional Psychological History / Comment(s): Pt resides with her spouse and child. She uses no assistive device. She no longer drives, her spouse drives. Smoking Status: Current every day smoker Past Alcohol Use History: None Reported Additional Past Alcohol Use History / Comment(s): Pt started smoking in 1969 and was a ppd smoker but cut down to 5 cigarettes a day Past Drug Use History: None Reported Additional Drug Use History / Comment(s): . - Past Family History Sister(s) Family Medical History: Cancer Additional Family Medical History / Comment(s): Sister had breast/bladder cancers. Son(s) Family Medical History: Cancer Additional Family Medical History / Comment(s): pancreatic cancer Father Family Medical History: Cancer Additional Family Medical History / Comment(s): Bowel cancer. Mother Family Medical History: Cancer Additional Family Medical History / Comment(s): Mother had bowel cancer twice and 2nd time metastasized to her kidney. Medications and Allergies Home Medications Medication Instructions Recorded Confirmed Type Cholecalciferol [Vitamin D3 (25 25 mcg PO DAILY 06/06/15 10/02/21 History Mcg = 1000 Iu)] Atorvastatin [Lipitor] 80 mg PO HS 01/03/16 10/02/21 History Lisinopril [Zestril] 10 mg PO DAILY 12/29/19 10/02/21 History carvediloL 25 mg PO BID 12/29/19 10/02/21 History Clopidogrel Bisulfate [Plavix] 75 mg PO DAILY #30 tab 12/30/19 10/02/21 Rx Cyanocobalamin (Vitamin B-12) 1,000 mcg PO DAILY 03/08/20 10/02/21 History [Vitamin B-12] Aspirin 81 mg PO DAILY #30 chewable 03/11/20 10/02/21 Rx Famotidine [Pepcid] 20 mg PO BID 04/04/20 10/02/21 History ALPRAZolam [Xanax] 0.5 mg PO BID PRN 10/02/21 10/02/21 History Budesonide [Pulmicort] 0.5 mg INHALATION RT-BID 10/02/21 10/02/21 History Cefuroxime Axetil [Ceftin] 500 mg PO BID 10/02/21 10/02/21 History Ipratropium-Albuterol Nebulize 3 ml INHALATION RT-TID 10/02/21 10/02/21 History [Duoneb 0.5 mg-3 mg/3 ml Soln] calcium polycarbophiL [Fibercon] 625 mg PO DAILY 10/02/21 10/02/21 History Allergies Allergy/AdvReac Type Severity Reaction Status Date / Time No Known Allergies Allergy Verified 10/02/21 21:26 Physical Exam Vitals: Vital Signs Temp Pulse Pulse Resp BP BP Pulse Ox 10/03/21 09:58 72 10/03/21 09:48 70 10/03/21 07:53 98.6 F 70 19 117/52 94 L 10/03/21 05:16 70 18 98/49 98 10/03/21 00:41 68 10/02/21 22:06 68 16 119/84 97 10/02/21 19:11 18 10/02/21 19:04 18 138/67 10/02/21 18:04 97.9 F 66 16 110/51 96 Intake and Output 10/02/21 10/03/21 10/03/21 22:59 06:59 14:59 Other: Voiding Method Toilet Weight 72.575 kg 72.575 kg Results CBC & Chem 7: 10/03/21 07:42 10/03/21 07:42 Labs: Abnormal Lab Results - Last 24 Hours (Table) 10/02/21 10/02/21 10/02/21 Range/Units 19:04 19:04 20:21 RBC 2.84 L (3.80-5.40) m/uL Hgb 8.1 L (11.4-16.0) gm/dL Hct 25.1 L (34.0-46.0) % BUN 23 H (7-17) mg/dL Glucose 105 H (74-99) mg/dL Total Bilirubin 1.6 H (0.2-1.3) mg/dL Stool Occult Blood Positive H (Negative) 10/03/21 10/03/21 Range/Units 07:42 07:42 RBC 2.66 L (3.80-5.40) m/uL Hgb 7.5 L (11.4-16.0) gm/dL Hct 24.0 L (34.0-46.0) % BUN 20 H (7-17) mg/dL Glucose (74-99) mg/dL Total Bilirubin (0.2-1.3) mg/dL Stool Occult Blood (Negative) Thrombosis Risk Factor Assmnt - Choose All That Apply Any of the Below Risk Factors Present?: Yes Each Factor Represents 1 point: Obesity (BMI >25) Other Risk Factors: Yes Each Risk Factor Represents 3 Points: Age 75 years or older Other congenital or acquired thrombophilia - If yes, enter type in comment: No Thrombosis Risk Factor Assessment Total Risk Factor Score: 4 Thrombosis Risk Factor Assessment Level: Moderate Risk
[2021-10-03] MEDS: carvediloL 3.125 MG TAB PO SCH (18:22)
[2021-10-03] MEDS: CEPHALEXIN 500 MG CAP PO SCH ×2 (18:22→21:18)
[2021-10-03] MEDS: PANTOPRAZOLE 40 MG TABLET PO SCH (18:22)
[2021-10-03] MEDS: SODIUM FERRIC GLUCONAT-SUCROSE 125 MG in SODIUM CHLORIDE 0.9% 100 ML IVPB SCH (18:22)
[2021-10-03] MEDS: ATORVASTATIN 80 MG TAB PO SCH (21:18)
[2021-10-04] MEDS: IPRATROPIUM-ALBUTEROL 3 ML NEB INHALATION PRN (02:08)
[2021-10-04 05:15] LABS: Basophils % (A) 0 %; Eosinophils # (A) 0.1 k/uL (0-0.7); Eosinophils % (A) 1 %; HCT 23.1 % (34.0-46.0); HGB 7.1 gm/dL (11.4-16.0); Hypochromasia Marked; Lymphocytes # (A) 1.1 k/uL (1.0-4.8); Lymphocytes % (A) 13 %; MCH 27.7 pg (25.0-35.0); MCHC 30.8 g/dL (31.0-37.0); Mean Platelet Volume 8.3; Monocytes # (A) 0.6 k/uL (0-1.0); Monocytes % (A) 8 %; Neutrophils # (A) 6.5 k/uL (1.3-7.7); Neutrophils % (A) 77 %; Platelet Count 170 k/uL (150-450); RBC 2.56 m/uL (3.80-5.40); RDW 15.2 % (11.5-15.5); WBC 8.5 k/uL (3.8-10.6)
[2021-10-04] MEDS: IPRATROPIUM-ALBUTEROL 3 ML NEB INHALATION SCH ×5 (08:52→23:21)
[2021-10-04] MEDS: BUDESONIDE 0.5 MG/2 ML NEBU INHALATION SCH ×2 (08:52→20:44)
[2021-10-04] MEDS: CEPHALEXIN 500 MG CAP PO SCH ×2 (09:48→13:15)
[2021-10-04] MEDS: PANTOPRAZOLE 40 MG TABLET PO SCH ×2 (09:48→17:51)
[2021-10-04] MEDS: carvediloL 3.125 MG TAB PO SCH ×2 (09:48→17:51)
[2021-10-04] MEDS: NICOTINE 7MG/24HR PATCH TRANSDERM SCH (09:48)
[2021-10-04] MEDS: SODIUM CHLORIDE 0.9% 1,000 ML IV SCH ×2 (09:48→13:50)
[2021-10-04] MEDS: CYANOCOBALAMIN 500 MCG TAB PO SCH (09:48)
--- NOTE | 2021-10-04 10:53 | P.CRDCN ---
History of Present Illness History of present illness: HISTORY OF PRESENTING ILLNESS Patient is a pleasant 81-year-old female with history of hypertension, hyperlipidemia, coronary artery disease status post CABG and PCI approximately 15 years ago in [place], COPD, prior carotid endarterectomy, stroke, tobacco abuse, aortic aneurysm. She normally follows with Dr Mo. She states she has been feeling fatigued and some shortness breath with some decreased appetite over the last week. She noted some darker stools and believes this was related to something she ate. She was found to have new anemia with hemoglobin in the sevens to eats and therefore underwent EGD with biopsy 10/03/2021 which showed erosive gastritis however no active bleeding. Was noted to be low at 17, positive occult stool blood, total bilirubin 1.6, Cr 0.9, hemoglobin 8.1, 7.5, 7.1, white blood cell count 10.1. She denies any chest pain or pressure. She states she was having some lower abdominal pain which is mild as well as a dry cough after her procedure yesterday. She states she was previously on aspirin and Plavix and then had been taken off of the Plavix and then suffered a few TIAs and therefore was placed back on the Plavix. No recent stenting or PCI. Last CTA from July 2021 showed ascending aortic aneurysm of 5.7 which was slightly increased from previous however per cardiothoracic note 08/21/2021 showed no significant change by measurements in transverse imaging. Echo from 2019 showed EF 30-35%, moderate to severe aortic stenosis, mild tricuspid regurgitation. REVIEW OF SYSTEMS At the time of my exam: CONSTITUTIONAL: Denies fever or chills. CARDIOVASCULAR: Denies chest pain, shortness of breath, orthopnea, PND or palpitations. RESPIRATORY: Denies cough. GASTROINTESTINAL: Denies abdominal pain, diarrhea, constipation, nausea or vomiting. MUSCULOSKELETAL: Denies myalgias. NEUROLOGIC: Denies numbness, tingling or weakness. ENDOCRINE: Denies fatigue, weight change, polydipsia or polyurina. GENITOURINARY: Denies burning, hematuria or urgency with micturation. HEMATOLOGIC: +anemia, +bleeding. PHYSICAL EXAMINATION Vital signs reviewed. CONSTITUTIONAL: No apparent distress. HEENT: Head is normocephalic. Pupils are equal, round. Sclerae anicteric. Mucous membranes of the mouth are moist. No JVD. No carotid bruit. CHEST EXAMINATION: Lungs are clear to auscultation. No chest wall tenderness is noted on palpation or with deep breathing. HEART EXAMINATION: Regular rate and rhythm. S1, S2 heard. No murmurs, gallops or rub. ABDOMEN: Soft, nontender. Positive bowel sounds. EXTREMITIES: 2+ peripheral pulses, no lower extremity edema and no calf tenderness. NEUROLOGIC EXAMINATION: Patient is awake, alert and oriented x3. ASSESSMENT 1. Acute GI bleed, EGD and no active bleeding 2. Iron deficiency anemia 3. Coronary artery disease with history of PCI approximately 15 years ago as well as CABG 4. Aortic stenosis, at least moderate to severe by last echo 2019 5. Ascending aortic aneurysm 5.6 cm by most recent CAT scan per cardiothoracic surgery review which was stable 6. History of stroke/TIA and placed on dual antiplatelets 7. Hypertension 8. Hyperlipidemia 9. Tobacco abuse PLAN Patient's main presentation of fatigue and shortness breath likely related to anemia. EGD appreciated with no active bleeding. We will start patient on baby aspirin given numerous risk factors and prior stroke/TIAs well off of Plavix. No indication for redo sternotomy for aortic aneurysm at this time per CTS. The remainder of aortic stenosis treatment may be performed as an outpatient. Further recommendations follow. Past Medical History Past Medical History: Coronary Artery Disease (CAD), CVA/TIA, GERD/Reflux, Hyperlipidemia, Hypertension, Myocardial Infarction ([place]), Osteoarthritis (OA), Vascular Disorder Additional Past Medical History / Comment(s): 1998 CVA with no residual, 02/2020 TIA, caratid stenosis with L caratid endartectomy, pt states she has had irregular heart beat in past but cannot recall type, vertigo, balance issues, back pain/disc problems, benign colon polyp Last Myocardial Infarction Date:: 2000 History of Any Multi-Drug Resistant Organisms: None Reported Past Surgical History: AICD, Appendectomy, Bowel Resection, Cholecystectomy, Coronary Bypass/CABG, Heart Catheterization With Stent, Hernia Repair, Orthopedic Surgery Additional Past Surgical History / Comment(s): Arch studies, 2000 PCI with stents, 2002 CABG-3 vessel, 2002 AICD, AICD gen changes, DFTs, 2002 L carotid endartectomy, bowel resection for benign flat polyp, abdominal hernia repair, L hip fracture with surgery, L arm benign lesion removed, colonoscopies/polyps Past Anesthesia/Blood Transfusion Reactions: No Reported Reaction, Motion Sickness Date of Last Stent Placement:: 2000 Type of Cardiac Device: AICD Device Placement Date:: 2002- Past Psychological History: Anxiety Additional Psychological History / Comment(s): Pt resides with her spouse and child. She uses no assistive device. She no longer drives, her spouse drives. Smoking Status: Current every day smoker Past Alcohol Use History: None Reported Additional Past Alcohol Use History / Comment(s): Pt started smoking in 1969 and was a ppd smoker but cut down to 5 cigarettes a day Past Drug Use History: None Reported Additional Drug Use History / Comment(s): . - Past Family History Sister(s) Family Medical History: Cancer Additional Family Medical History / Comment(s): Sister had breast/bladder cancers. Son(s) Family Medical History: Cancer Additional Family Medical History / Comment(s): pancreatic cancer Father Family Medical History: Cancer Additional Family Medical History / Comment(s): Bowel cancer. Mother Family Medical History: Cancer Additional Family Medical History / Comment(s): Mother had bowel cancer twice and 2nd time metastasized to her kidney. Medications and Allergies Home Medications Medication Instructions Recorded Confirmed Type Cholecalciferol [Vitamin D3 (25 25 mcg PO DAILY 06/06/15 10/02/21 History Mcg = 1000 Iu)] Atorvastatin [Lipitor] 80 mg PO HS 01/03/16 10/02/21 History Lisinopril [Zestril] 10 mg PO DAILY 12/29/19 10/02/21 History carvediloL 25 mg PO BID 12/29/19 10/02/21 History Clopidogrel Bisulfate [Plavix] 75 mg PO DAILY #30 tab 12/30/19 10/02/21 Rx Cyanocobalamin (Vitamin B-12) 1,000 mcg PO DAILY 03/08/20 10/02/21 History [Vitamin B-12] Aspirin 81 mg PO DAILY #30 chewable 03/11/20 10/02/21 Rx Famotidine [Pepcid] 20 mg PO BID 04/04/20 10/02/21 History ALPRAZolam [Xanax] 0.5 mg PO BID PRN 10/02/21 10/02/21 History Budesonide [Pulmicort] 0.5 mg INHALATION RT-BID 10/02/21 10/02/21 History Cefuroxime Axetil [Ceftin] 500 mg PO BID 10/02/21 10/02/21 History Ipratropium-Albuterol Nebulize 3 ml INHALATION RT-TID 10/02/21 10/02/21 History [Duoneb 0.5 mg-3 mg/3 ml Soln] calcium polycarbophiL [Fibercon] 625 mg PO DAILY 10/02/21 10/02/21 History Allergies Allergy/AdvReac Type Severity Reaction Status Date / Time No Known Allergies Allergy Verified 10/02/21 21:26 Physical Exam Vitals: Vital Signs Temp Pulse Pulse Resp BP BP Pulse Ox 10/04/21 09:10 76 10/04/21 08:52 76 10/04/21 07:20 98.2 F 70 18 123/70 98 10/04/21 02:39 98.3 F 71 18 107/64 96 10/04/21 02:19 76 10/04/21 02:08 78 10/04/21 00:56 69 16 10/03/21 22:03 72 10/03/21 21:52 70 10/03/21 19:19 69 16 10/03/21 19:18 98.5 F 73 17 110/60 94 L 10/03/21 15:00 98.0 F 69 16 100/60 92 L Intake and Output 10/03/21 10/04/21 10/04/21 22:59 06:59 14:59 Intake Total 118 118 Balance 118 118 Intake: Oral 118 118 Other: Voiding Method Toilet # Voids 1 1 Results 10/04/21 04:52 10/03/21 07:42 CBC 10/04/21 Range/Units 04:52 WBC 8.5 (3.8-10.6) k/uL RBC 2.56 L (3.80-5.40) m/uL Hgb 7.1 L (11.4-16.0) gm/dL Hct 23.1 L (34.0-46.0) % Plt Count 170 (150-450) k/uL Current Medications Generic Name Dose Route Start Last Admin Trade Name Freq PRN Reason Stop Dose Admin Albuterol/Ipratropium 3 ml 10/03/21 00:26 10/04/21 02:08 Ipratropium-Albuterol 3 Ml Neb INHALATION 3 ml RT-TID PRN Administration Shortness Of Breath Or Wheezing Albuterol/Ipratropium 3 ml 10/03/21 13:00 10/04/21 08:52 Ipratropium-Albuterol 3 Ml Neb INHALATION 3 ml RT-TID AYLIN Administration Alprazolam 0.5 mg 10/03/21 10:19 Alprazolam 0.5 Mg Tab PO BID PRN Anxiety Atorvastatin Calcium 80 mg 10/03/21 21:00 10/03/21 21:18 Atorvastatin 80 Mg Tab PO 80 mg HS AYLIN Administration Budesonide 0.5 mg 10/03/21 10:19 10/04/21 08:52 Budesonide 0.5 Mg/2 Ml Nebu INHALATION 0.5 mg RT-BID AYLIN Administration Carvedilol 3.125 mg 10/03/21 18:15 10/04/21 09:48 Carvedilol 3.125 Mg Tab PO 3.125 mg BID-W/MEALS AYLIN Administration Cephalexin 500 mg 10/03/21 18:00 10/04/21 09:48 Cephalexin 500 Mg Cap PO 500 mg QID AYLIN Administration Protocol Cyanocobalamin 1,000 mcg 10/04/21 09:00 10/04/21 09:48 Cyanocobalamin 500 Mcg Tab PO 1,000 mcg DAILY AYLIN Administration Sodium Chloride 1,000 mls @ 75 mls/hr 10/02/21 21:00 10/04/21 09:48 Saline 0.9% IV 75 mls/hr .[id number] AYLIN Administration Ferric Sodium Gluconate 125 mg 110 mls @ 100 mls/hr 10/03/21 18:30 10/03/21 18:22 / Sodium Chloride IVPB 10/04/21 19:35 100 mls/hr DAILY@1830 AYLIN Administration Naloxone HCl 0.2 mg 10/02/21 20:57 Naloxone 0.4 Mg/Ml 1 Ml Vial IV Q2M PRN Opioid Reversal Nicotine 1 patch 10/03/21 11:15 10/04/21 09:48 Nicotine 7mg/24hr Patch TRANSDERM 1 patch DAILY AYLIN Administration Pantoprazole Sodium 40 mg 10/03/21 18:15 10/04/21 09:48 Pantoprazole 40 Mg Tablet PO 40 mg AC-BID AYLIN Administration Intake and Output 10/03/21 10/04/21 10/04/21 22:59 06:59 14:59 Intake Total 118 118 Balance 118 118 Intake: Oral 118 118 Other: Voiding Method Toilet # Voids 1 1 10/04/21 04:52 10/03/21 07:42
--- NOTE | 2021-10-04 13:05 | XR ---
EXAMINATION TYPE: XR chest 2V DATE OF EXAM: 10/04/2021 COMPARISON: Chest x-ray April 23, 2020. CTA chest August 13, 2021. HISTORY: Shortness of breath and cough. TECHNIQUE: Frontal and lateral views of the chest are obtained. FINDINGS: There is mild chronic parenchymal change without suspicious focal air space opacity or pne umothorax seen bilaterally. Persisting cardiomegaly with atherosclerotic and ectatic thoracic aorta a long with dual lead pacemaker/defibrillator. New small to tiny bilateral pleural effusions. Overlyin g sternal wires redemonstrated. New more prominent bilateral interstitial prominence. The osseous str uctures are demineralized. IMPRESSION: Findings consistent with CHF exacerbation as there is cardiomegaly with mild interstitia l edema and small to tiny bilateral pleural effusions now appreciated.
--- NOTE | 2021-10-04 13:38 | P.PN ---
Progress Note - Text Progress Note Date: 10/04/21 Chief Complaint: Unwell History of presenting complaint: This is a very pleasant 81-year-old patient of Dr. Huffman. She also follows with neurologist Dr. Cobb. Chronic stable medical conditions include hypertension, hyperlipidemia, herniated disc in the back, coronary artery disease with bypass. COPD Patient for about a week has not been feeling well. Decreased appetite. Some chills. Some wheezing and cough. Smokes about 5 cigarettes a day. Patient did notice dark stools about a month ago. She felt it could have been from the cookies or brownies she had eaten. She went on to family doctor. Was found to have a hemoglobin that was low. Also at the urgent care she was found to have evidence of UTI. No abdominal pain. October 04: Patient underwent EGD yesterday. Found to have gastric erosions. Seen by cardiology. Aspirin resumed. Patient does feel weak and tired. Also short of breath. She feels she has a bronchitis. Patient also on Keflex for UTI. Chest x-ray ordered. Patient does sleep too well last night. [place] of COPD exacerbation. Increase DuoNeb. IV Solu-Medrol. Active Medications Albuterol/Ipratropium (Ipratropium-Albuterol 3 Ml Neb) 3 ml INHALATION RT-TID PRN PRN Reason: Shortness Of Breath Or Wheezing Last Admin: 10/04/21 02:08 Dose: 3 ml Documented by: Albuterol/Ipratropium (Ipratropium-Albuterol 3 Ml Neb) 3 ml INHALATION RT-TID [facility] Last Admin: 10/04/21 12:17 Dose: 3 ml Documented by: Alprazolam (Alprazolam 0.5 Mg Tab) 0.5 mg PO BID PRN PRN Reason: Anxiety Aspirin (Aspirin 81 Mg) 81 mg PO DAILY [facility] Atorvastatin Calcium (Atorvastatin 80 Mg Tab) 80 mg PO HS [facility] Last Admin: 10/03/21 21:18 Dose: 80 mg Documented by: Budesonide (Budesonide 0.5 Mg/2 Ml Nebu) 0.5 mg INHALATION RT-BID [facility] Last Admin: 10/04/21 08:52 Dose: 0.5 mg Documented by: Carvedilol (Carvedilol 3.125 Mg Tab) 3.125 mg PO BID-W/MEALS [facility] Last Admin: 10/04/21 09:48 Dose: 3.125 mg Documented by: Cephalexin (Cephalexin 500 Mg Cap) 500 mg PO BID [facility]; Protocol Cyanocobalamin (Cyanocobalamin 500 Mcg Tab) 1,000 mcg PO DAILY [facility] Last Admin: 10/04/21 09:48 Dose: 1,000 mcg Documented by: Sodium Chloride (Saline 0.9%) 1,000 mls @ 75 mls/hr IV .[id number] [facility] Last Admin: 10/04/21 09:48 Dose: 75 mls/hr Documented by: Ferric Sodium Gluconate 125 mg (/ Sodium Chloride) 110 mls @ 100 mls/hr IVPB DAILY@1830 [facility] Stop: 10/04/21 19:35 Last Admin: 10/03/21 18:22 Dose: 100 mls/hr Documented by: Naloxone HCl (Naloxone 0.4 Mg/Ml 1 Ml Vial) 0.2 mg IV Q2M PRN PRN Reason: Opioid Reversal Nicotine (Nicotine 7mg/24hr Patch) 1 patch TRANSDERM DAILY [facility] Last Admin: 10/04/21 09:48 Dose: 1 patch Documented by: Pantoprazole Sodium (Pantoprazole 40 Mg Tablet) 40 mg PO AC-BID [facility] Last Admin: 10/04/21 09:48 Dose: 40 mg Documented by: Past medical history to include: Coronary artery disease, stroke, GERD, hypertension, hyperlipidemia, back pain with herniated disc carotid bypass in 2002 AICD, anxiety. Social history: Video. Smoking since 9070 about a pack a day now down to a about 5 cigarettes a day. No alcohol Family history: Bowel cancer Physical examination: VITAL SIGNS: 98.2, 70, 18, 123/70, 98% room air GENERAL: Sitting at the edge bed, tired EYES: Pupils equal. Conjunctiva normal. HEENT: External appearance of nose and ears normal, oral cavity grossly normal. NECK: JVD not raised; masses not palpable. HEART: First and second heart sounds are normal; no edema. LUNGS: Respiratory rate increased, decreased breaths breath sounds. ABDOMEN: Soft, nontender, liver spleen not palpable, no masses palpable. PSYCH: Alert and oriented x3; mood and affect normal. Musculoskeletal: Evidence of OA, several joints NEUROLOGICAL: Cranial nerves grossly intact; no facial asymmetry, power and sensation grossly intact. LYMPHATICS: No lymph nodes palpable in the axilla and neck INVESTIGATIONS, reviewed in the clinical context: October 04:Chest x-ray film personally reviewed by me-possible right basilar pneumonia White count 17 hemoglobin 7.5 platelets 49 potassium 4.1 creatinine 0.91 EKG tracing personally reviewed by me-ST segment depression inferolateral leads. Admission labs: Hemoglobin 8.1 Stool occult blood positive Previous labs: Hemoglobin 11.7 on April 2020 Assessment and plan: -Acute GI bleed in a patient who reports dark stools about a month ago. - normocytic anemia. Gastric erosions-per EGD Follow H&H. -Acute COPD exacerbation in a current smoker: Not improving Increase DuoNeb every 4.. Inhaled Pulmicort. IV Solu-Medrol -Possible right basilar pneumonia Start Omnicef 300 mg twice a day -Chronic nicotine dependence patient cigarette smoker Nicotine patch -Essential hypertension Currently blood pressure running of the lower side. Hold Zestril. -Hyperlipidemia Lipitor 80 mg daily at bedtime -Coronary artery disease with a bypass in 2002 and stent Lipitor, aspirin resumed. 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 Alex Gross - outpatient -Primary osteoarthritis Tylenol when necessary -AICD -Acute UTI with cystitis. Tested positive outpatient at urgent care. Changed to Omnicef Omnicef 300 mg twice a day. Start Solu-Medrol 40 mg every 8. Increase DuoNeb every 4.
[2021-10-04] MEDS: methylPREDNISolone SOD SUCCI 40 MG/ML 1 ML VIAL IV SCH (15:55)
[2021-10-04] MEDS: SODIUM FERRIC GLUCONAT-SUCROSE 125 MG in SODIUM CHLORIDE 0.9% 100 ML IVPB SCH (18:19)
[2021-10-04] MEDS: CEFDINIR 300 MG CAP PO SCH (20:20)
[2021-10-04] MEDS: ATORVASTATIN 80 MG TAB PO SCH (20:20)
[2021-10-04] MEDS: ALPRAZolam 0.5 MG TAB PO PRN (20:57)
[2021-10-04] MEDS ORDERED: CEPHALEXIN 500 MG CAP PO SCH (21:00)
[2021-10-05] MEDS: methylPREDNISolone SOD SUCCI 40 MG/ML 1 ML VIAL IV SCH ×3 (00:14→16:13)
[2021-10-05] MEDS: IPRATROPIUM-ALBUTEROL 3 ML NEB INHALATION SCH ×6 (03:50→23:23)
[2021-10-05 06:54] LABS: Basophils % (A) 0 %; Eosinophils % (A) 0 %; HCT 24.5 % (34.0-46.0); HGB 7.7 gm/dL (11.4-16.0); Hypochromasia Marked; Lymphocytes # (A) 0.5 k/uL (1.0-4.8); Lymphocytes % (A) 6 %; MCH 28.2 pg (25.0-35.0); MCHC 31.5 g/dL (31.0-37.0); MCV 89.4 fL (80.0-100.0); Mean Platelet Volume 8.5; Monocytes # (A) 0.2 k/uL (0-1.0); Monocytes % (A) 2 %; Neutrophils # (A) 7.3 k/uL (1.3-7.7); Neutrophils % (A) 91 %; Platelet Count 222 k/uL (150-450); Poikilocytosis Slight; RBC 2.74 m/uL (3.80-5.40); RDW 15.9 % (11.5-15.5); WBC 8.1 k/uL (3.8-10.6)
[2021-10-05] MEDS: BUDESONIDE 0.5 MG/2 ML NEBU INHALATION SCH ×2 (08:40→20:40)
[2021-10-05] MEDS: carvediloL 3.125 MG TAB PO SCH ×2 (09:01→17:38)
[2021-10-05] MEDS: CEFDINIR 300 MG CAP PO SCH ×2 (09:01→20:55)
[2021-10-05] MEDS: PANTOPRAZOLE 40 MG TABLET PO SCH ×2 (09:01→17:38)
[2021-10-05] MEDS: ASPIRIN 81 MG PO SCH (09:01)
[2021-10-05] MEDS: NICOTINE 7MG/24HR PATCH TRANSDERM SCH (09:02)
[2021-10-05] MEDS: CYANOCOBALAMIN 500 MCG TAB PO SCH (09:02)
[2021-10-05] MEDS ORDERED: LACTULOSE 20 GM/30 ML CUP PO ONE (11:51)
--- NOTE | 2021-10-05 12:02 | P.PN ---
Subjective Progress Note Date: 10/05/21 HISTORY OF PRESENTING ILLNESS Patient is a pleasant 81-year-old female with history of hypertension, hyper lipidemia, coronary artery disease status post CABG and PCI approximately 15 years ago in [place], COPD, prior carotid endarterectomy, stroke, tobacco abuse, aortic aneurysm. She normally follows with Dr Mo. She states she has been feeling fatigued and some shortness breath with some decreased appetite over the last week. She noted some darker stools and believes this was related to something she ate. She was found to have new anemia with hemoglobin in the sevens to eats and therefore underwent EGD with biopsy 10/03/2021 which showed erosive gastritis however no active bleeding. Was noted to be low at 17, positive occult stool blood, total bilirubin 1.6, Cr 0.9, hemoglobin 8.1, 7.5, 7.1, white blood cell count 10.1. She denies any chest pain or pressure. She states she was having some lower abdominal pain which is mild as well as a dry cough after her procedure yesterday. She states she was previously on aspirin and Plavix and then had been taken off of the Plavix and then suffered a few TIAs and therefore was placed back on the Plavix. No recent stenting or PCI. Last CTA from July 2021 showed ascending aortic aneurysm of 5.7 which was slightly increased from previous however per cardiothoracic note 08/21/2021 showed no significant change by measurements in transverse imaging. Echo from 2019 showed EF 30-35%, moderate to severe aortic stenosis, mild tricuspid reg urgitation. 10/05: Denies having any chest pain but states she has a little shortness of breath. No pedal edema. She is complaining of left lower quadrant abdominal discomfort has not had a bowel movement since she came in. She will ask for a stool softener if she feels as needed. Repeat hemoglobin is 7.7. Heart rate is running in the 70s and 80s and blood pressure 145/71. Patient states that a couple weeks ago she went to Urgent Clinic due to shortness of breath and edema in her ankles. She complains now of feeling tightness when she coughs and shortness of breath ambulating to the bathroom and back to chair. No edema at this time. Chest x-ray from yesterday revealed findings consistent with CHF exacerbation as there is cardiomegaly with mild interstitial edema and small tiny bilateral pleural effusions. PHYSICAL EXAMINATION Vital signs reviewed. CONSTITUTIONAL: No apparent distress. HEENT: Head is normocephalic. Pupils are equal, round. Sclerae anicteric. Mucous membranes of the mouth are moist. No JVD. No carotid bruit. CHEST EXAMINATION: Lungs are clear to auscultation. No chest wall tenderness is noted on palpation or with deep breathing. HEART EXAMINATION: Regular rate and rhythm. S1, S2 heard. Systolic murmurs, gallops or rub. ABDOMEN: Soft, nontender. Positive bowel sounds. EXTREMITIES: 2+ peripheral pulses, no lower extremity edema and no calf tenderness. NEUROLOGIC EXAMINATION: Patient is awake, alert and oriented x3. ASSESSMENT 1. Acute GI bleed, EGD and no active bleeding 2. Iron deficiency anemia 3. Coronary artery disease with history of PCI approximately 15 years ago as well as CABG 4. Aortic stenosis, at least moderate to severe by last echo 2019 5. Ascending aortic aneurysm 5.6 cm by most recent CAT scan per cardiothoracic surgery review which was stable 6. History of stroke/TIA and placed on dual antiplatelets 7. Hypertension 8. Hyperlipidemia 9. Tobacco abuse 10. Exertional shortness of breath possibly related to valvular heart disease, possible early heart failure PLAN Patient's main presentation of fatigue and shortness breath likely related to anemia but cannot rule out valvular disease as comfort and also early heart failure. EGD appreciated with no active bleeding. Continue patient on baby aspirin given numerous risk factors and prior stroke/TIAs will plan to stay off of Plavix. No indication for redo sternotomy for aortic aneurysm at this time per CTS. The remainder of aortic stenosis treatment may be performed as an outpatient. Obtain 2-D echocardiogram and Doppler study to assess cardiac structure and function. Possibly home tomorrow and follow up with Dr. Maryam Mo. Nurse practitioner note has been reviewed, I agree with documented findings and plan of care. Patient was seen and examined. Objective - Vital Signs Vital signs: Vital Signs Temp 98.2 F 10/05/21 07:20 Pulse 80 10/05/21 08:40 Resp 17 10/05/21 07:20 BP 145/71 10/05/21 07:20 Pulse Ox 91 L 10/05/21 07:20 Intake & Output 10/04/21 10/05/21 10/05/21 18:59 06:59 18:59 Intake Total 118 Balance 118 Intake: Oral 118 Other: Voiding Method Toilet # Voids 1 1 - Labs CBC & Chem 7: 10/05/21 06:11 10/03/21 07:42 Labs: Abnormal Lab Results - Last 24 Hours (Table) 10/05/21 Range/Units 06:11 RBC 2.74 L (3.80-5.40) m/uL Hgb 7.7 L (11.4-16.0) gm/dL Hct 24.5 L (34.0-46.0) % RDW 15.9 H (11.5-15.5) % Lymphocytes # 0.5 L (1.0-4.8) k/uL
[2021-10-05] MEDS: POTASSIUM CHLORIDE ER 20 MEQ TAB.ER PO SCH (13:35)
[2021-10-05] MEDS: FUROSEMIDE 10 MG/ML 4 ML VIAL IV SCH (13:36)
--- NOTE | 2021-10-05 16:27 | P.PN ---
Progress Note - Text Progress Note Date: 10/05/21 Chief Complaint: Unwell History of presenting complaint: This is a very pleasant 81-year-old patient of Dr. Huffman. She also follows with neurologist Dr. Cobb. Chronic stable medical conditions include hypertension, hyperlipidemia, herniated disc in the back, coronary artery disease with bypass. COPD Patient for about a week has not been feeling well. Decreased appetite. Some chills. Some wheezing and cough. Smokes about 5 cigarettes a day. Patient did notice dark stools about a month ago. She felt it could have been from the cookies or brownies she had eaten. She went on to family doctor. Was found to have a hemoglobin that was low. Also at the urgent care she was found to have evidence of UTI. No abdominal pain. October 04: Patient underwent EGD yesterday. Found to have gastric erosions. Seen by cardiology. Aspirin resumed. Patient does feel weak and tired. Also short of breath. She feels she has a bronchitis. Patient also on Keflex for UTI. Chest x-ray ordered. Patient does sleep too well last night. [place] of COPD exacerbation. Increase DuoNeb. IV Solu-Medrol. October 05: Breathing a bit better. Up in a chair. Appetite getting better. Active Medications Albuterol/Ipratropium (Ipratropium-Albuterol 3 Ml Neb) 3 ml INHALATION RT-TID PRN PRN Reason: Shortness Of Breath Or Wheezing Last Admin: 10/04/21 02:08 Dose: 3 ml Documented by: Albuterol/Ipratropium (Ipratropium-Albuterol 3 Ml Neb) 3 ml INHALATION RT-Q4H [facility] Last Admin: 10/05/21 15:34 Dose: 3 ml Documented by: Alprazolam (Alprazolam 0.5 Mg Tab) 0.5 mg PO BID PRN PRN Reason: Anxiety Last Admin: 10/04/21 20:57 Dose: 0.5 mg Documented by: Aspirin (Aspirin 81 Mg) 81 mg PO DAILY [facility] Last Admin: 10/05/21 09:01 Dose: 81 mg Documented by: Atorvastatin Calcium (Atorvastatin 80 Mg Tab) 80 mg PO HS [facility] Last Admin: 10/04/21 20:20 Dose: 80 mg Documented by: Budesonide (Budesonide 0.5 Mg/2 Ml Nebu) 0.5 mg INHALATION RT-BID [facility] Last Admin: 10/05/21 08:40 Dose: 0.5 mg Documented by: Carvedilol (Carvedilol 3.125 Mg Tab) 3.125 mg PO BID-W/MEALS [facility] Last Admin: 10/05/21 09:01 Dose: 3.125 mg Documented by: Cefdinir (Cefdinir 300 Mg Cap) 300 mg PO BID [facility]; Protocol Last Admin: 10/05/21 09:01 Dose: 300 mg Documented by: Cyanocobalamin (Cyanocobalamin 500 Mcg Tab) 1,000 mcg PO DAILY [facility] Last Admin: 10/05/21 09:02 Dose: 1,000 mcg Documented by: Furosemide (Furosemide 10 Mg/Ml 4 Ml Vial) 40 mg IV DAILY [facility] Last Admin: 10/05/21 13:36 Dose: 40 mg Documented by: Methylprednisolone Sodium Succinate (Methylprednisolone Sod Succi 40 Mg/Ml 1 Ml Vial) 40 mg IV Q8HR [facility] Last Admin: 10/05/21 16:13 Dose: 40 mg Documented by: Naloxone HCl (Naloxone 0.4 Mg/Ml 1 Ml Vial) 0.2 mg IV Q2M PRN PRN Reason: Opioid Reversal Nicotine (Nicotine 7mg/24hr Patch) 1 patch TRANSDERM DAILY [facility] Last Admin: 10/05/21 09:02 Dose: 1 patch Documented by: Pantoprazole Sodium (Pantoprazole 40 Mg Tablet) 40 mg PO AC-BID [facility] Last Admin: 10/05/21 09:01 Dose: 40 mg Documented by: Potassium Chloride (Potassium Chloride Er 20 Meq Tab.Er) 20 meq PO DAILY [facility] Last Admin: 10/05/21 13:35 Dose: 20 meq Documented by: Past medical history to include: Coronary artery disease, stroke, GERD, hypertension, hyperlipidemia, back pain with herniated disc carotid bypass in 2002 AICD, anxiety. Social history: Video. Smoking since 9069 about a pack a day now down to a about 5 cigarettes a day. No alcohol Family history: Bowel cancer Physical examination: VITAL SIGNS: 97.7, 70, 18, 104/66, 100% room air GENERAL: Up in a chair, awake EYES: Pupils equal. Conjunctiva normal. HEENT: External appearance of nose and ears normal, oral cavity grossly normal. NECK: JVD not raised; masses not palpable. HEART: First and second heart sounds are normal; no edema. LUNGS: Respiratory rate increased, decreased breaths breath sounds. ABDOMEN: Soft, nontender, liver spleen not palpable, no masses palpable. PSYCH: Alert and oriented x3; mood and affect normal. Musculoskeletal: Evidence of OA, several joints INVESTIGATIONS, reviewed in the clinical context: October 05: White count 8.1 hemoglobin 7.7 October 04:Chest x-ray film personally reviewed by me-possible right basilar pneumonia White count 17 hemoglobin 7.5 platelets 49 potassium 4.1 creatinine 0.91 EKG tracing personally reviewed by me-ST segment depression inferolateral leads. Admission labs: Hemoglobin 8.1 Stool occult blood positive Previous labs: Hemoglobin 11.7 on April 2020 Assessment and plan: -Acute GI bleed in a patient who reports dark stools about a month ago. - normocytic anemia. Gastric erosions-per EGD Follow H&H. -Acute COPD exacerbation in a current smoker: Better DuoNeb every 4.. Inhaled Pulmicort. IV Solu-Medrol -Possible right basilar pneumonia Omnicef 300 mg twice a day -Chronic nicotine dependence patient cigarette smoker Nicotine patch -Essential hypertension Currently blood pressure running of the lower side. Hold Zestril. -Hyperlipidemia Lipitor 80 mg daily at bedtime -Coronary artery disease with a bypass in 2002 and stent Lipitor, aspirin resumed. 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 Alex Gross - outpatient -Primary osteoarthritis Tylenol when necessary -AICD -Acute UTI with cystitis. Tested positive outpatient at urgent care. Omnicef Continue DuoNeb, Solu-Medrol, Omnicef. Discussed with patient. Smoke cessation counseling: This was done with the patient. Nicotine patch is being given. More than 3 minutes was spent for this
[2021-10-05] MEDS: ATORVASTATIN 80 MG TAB PO SCH (20:54)
[2021-10-05] MEDS: ALPRAZolam 0.5 MG TAB PO PRN (20:59)
[2021-10-06] MEDS: methylPREDNISolone SOD SUCCI 40 MG/ML 1 ML VIAL IV SCH ×3 (00:31→15:39)
[2021-10-06] MEDS: IPRATROPIUM-ALBUTEROL 3 ML NEB INHALATION SCH ×6 (03:16→20:03)
[2021-10-06] MEDS: IPRATROPIUM-ALBUTEROL 3 ML NEB INHALATION PRN (04:10)
[2021-10-06] MEDS: BUDESONIDE 0.5 MG/2 ML NEBU INHALATION SCH ×2 (07:30→20:03)
[2021-10-06] MEDS: POTASSIUM CHLORIDE ER 20 MEQ TAB.ER PO SCH (08:29)
[2021-10-06] MEDS: CYANOCOBALAMIN 500 MCG TAB PO SCH (08:29)
[2021-10-06] MEDS: CEFDINIR 300 MG CAP PO SCH ×2 (08:29→20:03)
[2021-10-06] MEDS: NICOTINE 7MG/24HR PATCH TRANSDERM SCH (08:30)
[2021-10-06] MEDS: PANTOPRAZOLE 40 MG TABLET PO SCH ×2 (08:30→18:02)
[2021-10-06] MEDS: carvediloL 3.125 MG TAB PO SCH ×2 (08:30→18:02)
[2021-10-06] MEDS: ASPIRIN 81 MG PO SCH (08:30)
[2021-10-06] MEDS: FUROSEMIDE 10 MG/ML 4 ML VIAL IV SCH (08:31)
--- NOTE | 2021-10-06 11:36 | P.PN ---
Subjective HISTORY OF PRESENTING ILLNESS Patient is a pleasant 81-year-old female with history of hypertension, hyperlipidemia, coronary artery disease status post CABG and PCI approximately 15 years ago in [place], COPD, prior carotid endarterectomy, stroke, tobacco abuse, aortic aneurysm. She normally follows with Dr Mo. She states she has been feeling fatigued and some shortness breath with some decreased appetite over the last week. She noted some darker stools and believes this was related to something she ate. She was found to have new anemia with hemoglobin in the 7-8 and therefore underwent EGD with biopsy 10/03/2021 which showed erosive gastritis however no active bleeding. Was noted to be low at 17, positive occult stool blood, total bilirubin 1.6, Cr 0.9, hemoglobin 8.1, 7.5, 7.1, white blood cell count 10.1. She denies any chest pain or pressure. She states she was having some lower abdominal pain which is mild as well as a dry cough after her procedure yesterday. She states she was previously on aspirin and Plavix and then had been taken off of the Plavix and then suffered a few TIAs and therefore was placed back on the Plavix. No recent stenting or PCI. Last CTA from July 2021 showed ascending aortic aneurysm of 5.7 which was slightly increased from previous however per cardiothoracic note 08/21/2021 showed no significant change by measurements in transverse imaging. Echo from 2019 showed EF 30-35%, moderate to severe aortic stenosis, mild tricuspid regurgitation. 10/05/2021- concern for acute heart failure excerbation and patient was started on IV Lasix 10/06/2021 Patient seen and examined at bedside, no acute distress. Overnight patient with continuous shortness of breath with ambulation. She also continues to complain of feeling tightness when she coughs and shortness of breath ambulating to the bathroom and back to chair. No edema at this time. Repeat chest xray today pending. Echo pending She's currently maintained on IV Lasix 40 mg daily, aspirin 81 mg daily, at orvastatin 80 mg nightly, carvedilol 3.125 mg twice a day PHYSICAL EXAMINATION Vital signs reviewed. CONSTITUTIONAL: No apparent distress. HEENT: Neck supple No JVD. CHEST EXAMINATION: Lungs are clear to auscultation. No chest wall tenderness is noted on palpation or with deep breathing. HEART EXAMINATION: Regular rate and rhythm. S1, S2 heard. Systolic murmurs, gallops or rub. ABDOMEN: Soft, nontender. Positive bowel sounds. EXTREMITIES: 2+ peripheral pulses, no lower extremity edema and no calf tenderness. NEUROLOGIC EXAMINATION: Patient is awake, alert and oriented x3. ASSESSMENT Acute GI bleed, EGD and no active bleeding Exertional shortness of breath possibly related to valvular heart disease, possible early heart failure Acute Heart failure with preserved ejection fraction Iron deficiency anemia Coronary artery disease with history of PCI approximately 15 years ago as well a s CABG Aortic stenosis, at least moderate to severe by last echo 2019 Ascending aortic aneurysm 5.6 cm by most recent CAT scan per cardiothoracic surgery review which was stable History of stroke/TIA and placed on dual antiplatelets Hypertension Hyperlipidemia Tobacco abuse PLAN Patient's main presentation of fatigue and shortness breath likely related to anemia but cannot rule out valvular disease as comfort and also early heart failure. EGD appreciated with no active bleeding. Continue patient on baby aspirin given numerous risk factors and prior stroke/TIAs will plan to stay off of Plavix. No indication for redo sternotomy for aortic aneurysm at this time per CTS. The remainder of aortic stenosis treatment may be performed as an outpatient. Continue IV Lasix 40mg daily for additional 24 hours Monitor I/Os, daily weights, renal function and electrolytes Obtain 2-D echocardiogram and Doppler study to assess cardiac structure and function. Continue aspirin, statin, and beta alfonso Further recommendations and clinical course Nurse practitioner note has been reviewed, I agree with documented findings and plan of care. Patient was seen and examined. Objective - Vital Signs Vital signs: Vital Signs Temp 97.6 F 10/06/21 07:35 Pulse 72 10/06/21 07:42 Resp 18 10/06/21 07:35 BP 138/73 10/06/21 07:35 Pulse Ox 100 10/06/21 07:35 Intake & Output 10/05/21 10/06/21 10/06/21 18:59 06:59 18:59 Intake Total 236 Balance 236 Intake: Oral 236 Other: Voiding Method Toilet Diaper # Voids 1 2 - Labs CBC & Chem 7: 10/05/21 06:11 10/03/21 07:42
[2021-10-06 11:41] LABS: African American GFR (CKD) 60 (>60 ml/min/1.73 sqM); Anion Gap 10 mmol/L; Blood Urea Nitrogen 22 mg/dL (7-17); Calcium 10.3 mg/dL (8.4-10.2); Carbon Dioxide 26 mmol/L (22-30); Chloride 99 mmol/L (98-107); Glucose 146 mg/dL (74-99); Non-African American GFR(CKD) 52 (>60 ml/min/1.73 sqM); Sodium 135 mmol/L (137-145)
--- NOTE | 2021-10-06 15:47 | XR ---
EXAMINATION TYPE: XR chest 2V DATE OF EXAM: 10/06/2021 COMPARISON: 10/04/2021 HISTORY: 81 year-old female shortness of breath and chest pain TECHNIQUE: Frontal and lateral views FINDINGS: Left anterior chest wall ICD generator with right atrial and right ventricular leads. Median sternoto my wires and postoperative changes in the mediastinum. Heart is borderline enlarged. There is hyperin flation. There are small bilateral pleural effusions and bibasilar opacities. Effusions are stable to slightly increased. Overall pulmonary vasculature shows improvement. IMPRESSION: Cardiomegaly and COPD. The pulmonary vasculature has improved. The small bilateral pleural effusions with adjacent atelectasis and/or consolidation are similar or slightly increased.
--- NOTE | 2021-10-06 16:21 | P.PN ---
Progress Note - Text Progress Note Date: 10/06/21 Chief Complaint: Unwell History of presenting complaint: This is a very pleasant 81-year-old patient of Dr. Huffman. She also follows with neurologist Dr. Cobb. Chronic stable medical conditions include hypertension, hyperlipidemia, herniated disc in the back, coronary artery disease with bypass. COPD Patient for about a week has not been feeling well. Decreased appetite. Some chills. Some wheezing and cough. Smokes about 5 cigarettes a day. Patient did notice dark stools about a month ago. She felt it could have been from the cookies or brownies she had eaten. She went on to family doctor. Was found to have a hemoglobin that was low. Also at the urgent care she was found to have evidence of UTI. No abdominal pain. October 04: Patient underwent EGD yesterday. Found to have gastric erosions. Seen by cardiology. Aspirin resumed. Patient does feel weak and tired. Also short of breath. She feels she has a bronchitis. Patient also on Keflex for UTI. Chest x-ray ordered. Patient does sleep too well last night. [place] of COPD exacerbation. Increase DuoNeb. IV Solu-Medrol. October 05: Breathing a bit better. Up in a chair. Appetite getting better. October 06: Patient had an episode earlier today shortness of breath and chest pressure. 2-D echo ordered. Patient is on IV Lasix or CHF. Tired. Active Medications Albuterol/Ipratropium (Ipratropium-Albuterol 3 Ml Neb) 3 ml INHALATION RT-TID PRN PRN Reason: Shortness Of Breath Or Wheezing Last Admin: 10/06/21 04:10 Dose: 3 ml Documented by: Albuterol/Ipratropium (Ipratropium-Albuterol 3 Ml Neb) 3 ml INHALATION RT-Q4H [facility] Last Admin: 10/06/21 11:18 Dose: Not Given Documented by: Alprazolam (Alprazolam 0.5 Mg Tab) 0.5 mg PO BID PRN PRN Reason: Anxiety Last Admin: 10/05/21 20:59 Dose: 0.5 mg Documented by: Aspirin (Aspirin 81 Mg) 81 mg PO DAILY [facility] Last Admin: 10/06/21 08:30 Dose: 81 mg Documented by: Atorvastatin Calcium (Atorvastatin 80 Mg Tab) 80 mg PO HS [facility] Last Admin: 10/05/21 20:54 Dose: 80 mg Documented by: Budesonide (Budesonide 0.5 Mg/2 Ml Nebu) 0.5 mg INHALATION RT-BID [facility] Last Admin: 10/06/21 07:30 Dose: 0.5 mg Documented by: Carvedilol (Carvedilol 3.125 Mg Tab) 3.125 mg PO BID-W/MEALS [facility] Last Admin: 10/06/21 08:30 Dose: 3.125 mg Documented by: Cefdinir (Cefdinir 300 Mg Cap) 300 mg PO BID [facility]; Protocol Last Admin: 10/06/21 08:29 Dose: 300 mg Documented by: Cyanocobalamin (Cyanocobalamin 500 Mcg Tab) 1,000 mcg PO DAILY [facility] Last Admin: 10/06/21 08:29 Dose: 1,000 mcg Documented by: Furosemide (Furosemide 10 Mg/Ml 4 Ml Vial) 40 mg IV DAILY [facility] Last Admin: 10/06/21 08:31 Dose: 40 mg Documented by: Methylprednisolone Sodium Succinate (Methylprednisolone Sod Succi 40 Mg/Ml 1 Ml Vial) 40 mg IV Q8HR [facility] Last Admin: 10/06/21 15:39 Dose: 40 mg Documented by: Naloxone HCl (Naloxone 0.4 Mg/Ml 1 Ml Vial) 0.2 mg IV Q2M PRN PRN Reason: Opioid Reversal Nicotine (Nicotine 7mg/24hr Patch) 1 patch TRANSDERM DAILY [facility] Last Admin: 10/06/21 08:30 Dose: 1 patch Documented by: Pantoprazole Sodium (Pantoprazole 40 Mg Tablet) 40 mg PO AC-BID [facility] Last Admin: 10/06/21 08:30 Dose: 40 mg Documented by: Potassium Chloride (Potassium Chloride Er 20 Meq Tab.Er) 20 meq PO DAILY [facility] Last Admin: 10/06/21 08:29 Dose: 20 meq Documented by: Past medical history to include: Coronary artery disease, stroke, GERD, hypertension, hyperlipidemia, back pain with herniated disc carotid bypass in 2002 AICD, anxiety. Social history: Video. Smoking since 9069 about a pack a day now down to a about 5 cigarettes a day. No alcohol Family history: Bowel cancer Physical examination: VITAL SIGNS: 97.6, 80, 18, 138/73, 100% room air GENERAL: Up in a chair, awake EYES: Pupils equal. Conjunctiva normal. HEENT: External appearance of nose and ears normal, oral cavity grossly normal. NECK: JVD not raised; masses not palpable. HEART: First and second heart sounds are normal; no edema. LUNGS: Respiratory rate increased, decreased breaths breath sounds. ABDOMEN: Soft, nontender, liver spleen not palpable, no masses palpable. PSYCH: Alert and oriented x3; mood and affect normal. Musculoskeletal: Evidence of OA, several joints INVESTIGATIONS, reviewed in the clinical context: October 06: Potassium 4 creatinine 1.03 chest x-ray: Venous prominence October 05: White count 8.1 hemoglobin 7.7 October 04:Chest x-ray film personally reviewed by me-possible right basilar pneu monia White count 17 hemoglobin 7.5 platelets 49 potassium 4.1 creatinine 0.91 EKG tracing personally reviewed by me-ST segment depression inferolateral leads. Admission labs: Hemoglobin 8.1 Stool occult blood positive Previous labs: Hemoglobin 11.7 on April 2020 Assessment and plan: -Acute GI bleed in a patient who reports dark stools about a month ago. - normocytic anemia. Gastric erosions-per EGD Follow H&H. -Acute COPD exacerbation in a current smoker: Better DuoNeb every 4.. Inhaled Pulmicort. IV Solu-Medrol -Possible right basilar pneumonia Omnicef 300 mg twice a day -Acute congestive heart failure exacerbation: Slow to respond IV Lasix -Chronic nicotine dependence patient cigarette smoker Nicotine patch -Essential hypertension Currently blood pressure running of the lower side. Hold Zestril. -Hyperlipidemia Lipitor 80 mg daily at bedtime -Coronary artery disease with a bypass in 2002 and stent Lipitor, aspirin resumed. 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 Alex Gross - outpatient -Primary osteoarthritis Tylenol when necessary -AICD -Acute UTI with cystitis. Tested positive outpatient at urgent care. Omnicef IV Lasix. 2-D echo. Other medications to continue. Follow with cardiology. Discussed with patient.
[2021-10-06] MEDS: ATORVASTATIN 80 MG TAB PO SCH (20:03)
[2021-10-06] MEDS: ALPRAZolam 0.5 MG TAB PO PRN (21:09)
[2021-10-07] MEDS: methylPREDNISolone SOD SUCCI 40 MG/ML 1 ML VIAL IV SCH ×3 (00:01→16:29)
[2021-10-07] MEDS: IPRATROPIUM-ALBUTEROL 3 ML NEB INHALATION SCH ×6 (03:08→20:42)
[2021-10-07 06:46] LABS: African American GFR (CKD) 61 (>60 ml/min/1.73 sqM); Anion Gap 5 mmol/L; Blood Urea Nitrogen 30 mg/dL (7-17); Calcium 9.7 mg/dL (8.4-10.2); Carbon Dioxide 30 mmol/L (22-30); Chloride 99 mmol/L (98-107); Glucose 145 mg/dL (74-99); Non-African American GFR(CKD) 53 (>60 ml/min/1.73 sqM); Potassium 4.3 mmol/L (3.5-5.1); Sodium 134 mmol/L (137-145)
[2021-10-07] MEDS: BUDESONIDE 0.5 MG/2 ML NEBU INHALATION SCH ×2 (09:04→20:42)
[2021-10-07] MEDS: NICOTINE 7MG/24HR PATCH TRANSDERM SCH (10:02)
[2021-10-07] MEDS: carvediloL 3.125 MG TAB PO SCH ×2 (10:02→16:28)
[2021-10-07] MEDS: ASPIRIN 81 MG PO SCH (10:04)
[2021-10-07] MEDS: FUROSEMIDE 10 MG/ML 4 ML VIAL IV SCH (10:04)
[2021-10-07] MEDS: CYANOCOBALAMIN 500 MCG TAB PO SCH (10:05)
[2021-10-07] MEDS: CEFDINIR 300 MG CAP PO SCH ×2 (10:05→21:39)
[2021-10-07] MEDS: PANTOPRAZOLE 40 MG TABLET PO SCH ×2 (10:05→16:28)
[2021-10-07] MEDS: POTASSIUM CHLORIDE ER 20 MEQ TAB.ER PO SCH (10:06)
--- NOTE | 2021-10-07 10:34 | P.PN ---
Subjective HISTORY OF PRESENTING ILLNESS Patient is a pleasant 81-year-old female with history of hypertension, hyperlipidemia, coronary artery disease status post CABG and PCI approximately 15 years ago in [place], COPD, prior carotid endarterectomy, stroke, tobacco abuse, aortic aneurysm. She normally follows with Dr Mo. She states she has been feeling fatigued and some shortness breath with some decreased appetite over the last week. She noted some darker stools and believes this was related to something she ate. She was found to have new anemia with hemoglobin in the 7-8 and therefore underwent EGD with biopsy 10/03/2021 which showed erosive gastritis however no active bleeding. Was noted to be low at 17, positive occult stool blood, total bilirubin 1.6, Cr 0.9, hemoglobin 8.1, 7.5, 7.1, white blood cell count 10.1. She denies any chest pain or pressure. She states she was having some lower abdominal pain which is mild as well as a dry cough after her procedure yesterday. She states she was previously on aspirin and Plavix and then had been taken off of the Plavix and then suffered a few TIAs and therefore was placed back on the Plavix. No recent stenting or PCI. Last CTA from July 2021 showed ascending aortic aneurysm of 5.7 which was slightly increased from previous however per cardiothoracic note 08/21/2021 showed no significant change by measurements in transverse imaging. Echo from 2019 showed EF 30-35%, with wall motion abnormalities, moderate to severe aortic stenosis, mild tricuspid regurgitation. 10/05/2021- concern for acute heart failure excerbation and patient was started on IV Lasix 10/07/2021 Patient seen and examined at bedside, no acute distress. She continues to have shortness of breath with ambulation, but his has improvement since admission. She continues to be worried about her heart failure and not quite back to her baseline. Repeat chest xray today revealed improvement in pulmonary vascular congestion. Echocardiogram revealed EF 3035%, mid inferior septal wall, anterior septal wall, apical septum LV wall hypokinetic, LA severely dilated, moderate aortic regurgitation, severe aortic stenosis peak/mean gradient of 65 mmHg/35 mmHg, moderate mitral regurgitation, mild tricuspid regurgitation, moderate pulmonary hypertension RVSP of 54 mmHg, ascending aorta is dilated and measures 5.0 cm She's currently maintained on IV Lasix 40 mg daily, aspirin 81 mg daily, atorvastatin 80 mg nightly, carvedilol 3.125 mg twice a day PHYSICAL EXAMINATION Vital signs reviewed. CONSTITUTIONAL: No apparent distress. HEENT: Neck supple No JVD. CHEST EXAMINATION: Lungs are clear to auscultation. No chest wall tenderness is noted on palpation or with deep breathing. HEART EXAMINATION: Regular rate and rhythm. S1, S2 heard. Systolic murmur at base and apex noted. No gallops or rub. ABDOMEN: Soft, nontender. Positive bowel sounds. EXTREMITIES: 2+ peripheral pulses, no lower extremity edema and no calf tenderness. NEUROLOGIC EXAMINATION: Patient is awake, alert and oriented x3. ASSESSMENT GI bleed, EGD and no active bleeding Acute on chronic heart failure with reduced ejection fraction Iron deficiency anemia Coronary artery disease with history of PCI approximately 15 years ago as well as CABG Ischemic cardiomyopathy Severe Aortic stenosis Ascending aortic aneurysm 5.6 cm by most recent CAT scan per cardiothoracic surgery review which was stable History of stroke/TIA and placed on dual antiplatelets Hypertension Hyperlipidemia Tobacco abuse PLAN Continue IV Lasix 40mg daily for additional 24 hours Monitor I/Os, daily weights, renal function and electrolytes Continue aspirin, statin, and beta alfonso Patient's main presentation of fatigue and shortness breath likely combination related to anemia and valvular heart disease and heart failure exacerbation. EGD appreciated with no active bleeding. Continue patient on baby aspirin given numerous risk factors and prior stroke/TIAs will plan to stay off of Plavix. No indication for redo sternotomy for aortic aneurysm at this time per CTS. The remainder of aortic stenosis treatment may be performed as an outpatient. Further recommendations and clinical course Nurse practitioner note has been reviewed, I agree with documented findings and plan of care. Patient was seen and examined. Objective - Vital Signs Vital signs: Vital Signs Temp 98.0 F 10/07/21 08:00 Pulse 66 10/07/21 09:22 Resp 16 10/07/21 09:22 BP 124/59 10/07/21 08:00 Pulse Ox 97 10/07/21 08:00 Intake & Output 10/06/21 10/07/21 10/07/21 18:59 06:59 18:59 Intake Total 416 Balance 416 Weight 71.6 kg Intake: Oral 416 Other: Voiding Method Toilet Diaper # Voids 7 - Labs CBC & Chem 7: 10/05/21 06:11 10/07/21 05:53 Labs: Abnormal Lab Results - Last 24 Hours (Table) 10/06/21 10/07/21 Range/Units 10:56 05:53 Sodium 135 L 134 L (137-145) mmol/L BUN 22 H 30 H (7-17) mg/dL Glucose 146 H 145 H (74-99) mg/dL Calcium 10.3 H (8.4-10.2) mg/dL
[2021-10-07] MEDS: SPIRONOLACTONE 25 MG TAB PO SCH (11:42)
--- NOTE | 2021-10-07 13:00 | ECHOF ---
Referral Reason:LVF MEASUREMENTS -------- HEIGHT: 162.6 cm WEIGHT: 72.6 kg BP: IVSd: 0.8 cm (0.6 - 1.1) LVIDd: 6.2 cm (3.9 - 5.3) LVPWd: 1.2 cm (0.6 - 1.1) IVSs: 1.1 cm LVIDs: 6.0 cm LVPWs: 1.6 cm LAESV Index (A-L): 54.34 ml/m Ao Diam: 3.0 cm (2.0 - 3.7) AV Cusp: 0.9 cm (1.5 - 2.6) LA Diam: 4.9 cm (2.7 - 3.8) MV EXCURSION: 18.395 mm (> 18.000) MV EF SLOPE: 57 mm/s (70 - 150) EPSS: 2.5 cm MV E Carm[place]: 1.35 m/s MV DecT: 230 ms MV A [place]: 0.83 m/s MV E/A Ratio: 1.63 AV maxP.83 mmHg AV meanP.99 mmHg AR PHT: 360 ms RAP: 5.00 mmHg RVSP: 54.69 mmHg FINDINGS -------- Paced rhythm. This was a technically adequate study. The left ventricle is moderately dilated. Left ventricular wall thickness is normal. Overall left ventricular systolic function is moderate-severely impaired with, an EF between 30 - 35 %. Mid inf eroseptal LV wall motion is hypokinetic. Mid anteroseptal LV wall motion is hypokinetic. Apical septum LV wall motion is hypokinetic. The right ventricle is normal in size. LA is severely dilated >40 ml/m2 The right atrial size is normal. There is moderate aortic regurgitation. There is severe aortic stenosis present. Peak/mean gradie nt across the Aortic Valve is 65.83mmHg / 35.99mmHg. The mitral valve leaflets are mildly thickened. Mild mitral annular calcification present. Modera te mitral regurgitation is present. Mild tricuspid regurgitation present. There is moderate pulmonary hypertension. The right ventric ular systolic pressure, as measured by Doppler, is 54.69mmHg. Trace/mild (physiologic) pulmonic regurgitation. Ascending Aortic is dilsted and measures 5.0cm. Echo free space indicative of a pericardial fat pad. CONCLUSIONS -------- 1. The left ventricle is moderately dilated. 2. Left ventricular wall thickness is normal. 3. Overall left ventricular systolic function is moderate-severely impaired with, an EF between 30 - 35 %. 4. Mid inferoseptal LV wall motion is hypokinetic. 5. Mid anteroseptal LV wall motion is hypokinetic. 6. Apical septum LV wall motion is hypokinetic. 7. The right ventricle is normal in size. 8. LA is severely dilated >40 ml/m2 9. The right atrial size is normal. 10. There is moderate aortic regurgitation. 11. There is severe aortic stenosis present. 12. Peak/mean gradient across the Aortic Valve is 65.83mmHg / 35.99mmHg. 13. The mitral valve leaflets are mildly thickened. 14. Mild mitral annular calcification present. 15. Moderate mitral regurgitation is present. 16. Mild tricuspid regurgitation present. 17. There is moderate pulmonary hypertension. 18. The right ventricular systolic pressure, as measured by Doppler, is 54.69mmHg. 19. Trace/mild (physiologic) pulmonic regurgitation. 20. Ascending Aortic is dilsted and measures 5.0cm. 21. Echo free space indicative of a pericardial fat pad. BURNER TECHNICIAN: Monika Mares RDCS
--- NOTE | 2021-10-07 15:58 | P.PN ---
Progress Note - Text Progress Note Date: 10/07/21 Chief Complaint: Unwell History of presenting complaint: This is a very pleasant 81-year-old patient of Dr. Huffman. She also follows with neurologist Dr. Cobb. Chronic stable medical conditions include hypertension, hyperlipidemia, herniated disc in the back, coronary artery disease with bypass. COPD Patient for about a week has not been feeling well. Decreased appetite. Some chills. Some wheezing and cough. Smokes about 5 cigarettes a day. Patient did notice dark stools about a month ago. She felt it could have been from the cookies or brownies she had eaten. She went on to family doctor. Was found to have a hemoglobin that was low. Also at the urgent care she was found to have evidence of UTI. No abdominal pain. October 04: Patient underwent EGD yesterday. Found to have gastric erosions. Seen by cardiology. Aspirin resumed. Patient does feel weak and tired. Also short of breath. She feels she has a bronchitis. Patient also on Keflex for UTI. Chest x-ray ordered. Patient does sleep too well last night. [place] of COPD exacerbation. Increase DuoNeb. IV Solu-Medrol. October 05: Breathing a bit better. Up in a chair. Appetite getting better. October 06: Patient had an episode earlier today shortness of breath and chest pressure. 2-D echo ordered. Patient is on IV Lasix or CHF. Tired. October 07: 2-D echo shows wall motion abnormality and EF of 30 to-35%. Other abnormalities noted. Still short of breath. On IV Lasix. Diet. Active Medications Albuterol/Ipratropium (Ipratropium-Albuterol 3 Ml Neb) 3 ml INHALATION RT-TID PRN PRN Reason: Shortness Of Breath Or Wheezing Last Admin: 10/06/21 04:10 Dose: 3 ml Documented by: Albuterol/Ipratropium (Ipratropium-Albuterol 3 Ml Neb) 3 ml INHALATION RT-Q4H [facility] Last Admin: 10/07/21 11:51 Dose: 3 ml Documented by: Alprazolam (Alprazolam 0.5 Mg Tab) 0.5 mg PO BID PRN PRN Reason: Anxiety Last Admin: 10/06/21 21:09 Dose: 0.5 mg Documented by: Aspirin (Aspirin 81 Mg) 81 mg PO DAILY [facility] Last Admin: 10/07/21 10:04 Dose: 81 mg Documented by: Atorvastatin Calcium (Atorvastatin 80 Mg Tab) 80 mg PO HS [facility] Last Admin: 10/06/21 20:03 Dose: 80 mg Documented by: Budesonide (Budesonide 0.5 Mg/2 Ml Nebu) 0.5 mg INHALATION RT-BID [facility] Last Admin: 10/07/21 09:04 Dose: 0.5 mg Documented by: Carvedilol (Carvedilol 3.125 Mg Tab) 3.125 mg PO BID-W/MEALS [facility] Last Admin: 10/07/21 10:02 Dose: 3.125 mg Documented by: Cefdinir (Cefdinir 300 Mg Cap) 300 mg PO BID [facility]; Protocol Last Admin: 10/07/21 10:05 Dose: 300 mg Documented by: Cyanocobalamin (Cyanocobalamin 500 Mcg Tab) 1,000 mcg PO DAILY [facility] Last Admin: 10/07/21 10:05 Dose: 1,000 mcg Documented by: Furosemide (Furosemide 10 Mg/Ml 4 Ml Vial) 40 mg IV DAILY [facility] Last Admin: 10/07/21 10:04 Dose: 40 mg Documented by: Methylprednisolone Sodium Succinate (Methylprednisolone Sod Succi 40 Mg/Ml 1 Ml Vial) 40 mg IV Q8HR [facility] Last Admin: 10/07/21 10:03 Dose: 40 mg Documented by: Naloxone HCl (Naloxone 0.4 Mg/Ml 1 Ml Vial) 0.2 mg IV Q2M PRN PRN Reason: Opioid Reversal Nicotine (Nicotine 7mg/24hr Patch) 1 patch TRANSDERM DAILY [facility] Last Admin: 10/07/21 10:02 Dose: 1 patch Documented by: Pantoprazole Sodium (Pantoprazole 40 Mg Tablet) 40 mg PO AC-BID [facility] Last Admin: 10/07/21 10:05 Dose: 40 mg Documented by: Potassium Chloride (Potassium Chloride Er 20 Meq Tab.Er) 20 meq PO DAILY [facility] Last Admin: 10/07/21 10:06 Dose: 20 meq Documented by: Spironolactone (Spironolactone 25 Mg Tab) 25 mg PO DAILY [facility] Last Admin: 10/07/21 11:42 Dose: 25 mg Documented by: Past medical history to include: Coronary artery disease, stroke, GERD, hypertension, hyperlipidemia, back pain with herniated disc carotid bypass in 2002 AICD, anxiety. Social history: Video. Smoking since 9069 about a pack a day now down to a about 5 cigarettes a day. No alcohol Family history: Bowel cancer Physical examination: VITAL SIGNS: 98.4, 77, 16, 101/58, 96% room air GENERAL: Up in a chair, awake EYES: Pupils equal. Conjunctiva normal. HEENT: External appearance of nose and ears normal, oral cavity grossly normal. NECK: JVD not raised; masses not palpable. HEART: First and second heart sounds are normal; no edema. LUNGS: Respiratory rate increased, decreased breaths breath sounds. ABDOMEN: Soft, nontender, liver spleen not palpable, no masses palpable. PSYCH: Alert and oriented x3; mood and affect normal. Musculoskeletal: Evidence of OA, several joints INVESTIGATIONS, reviewed in the clinical context: 2-D echocardiogram: EF 30-35%. Multiple wall motion akinetic. Moderate aortic regurgitation, severe aortic stenosis, moderate mitral regurgitation, moderate pulmonary hypertension October 07: Potassium 4.3 creatinine 1.01 October 06: Potassium 4 creatinine 1.03 chest x-ray: Venous prominence October 05: White count 8.1 hemoglobin 7.7 October 04:Chest x-ray film personally reviewed by me-possible right basilar pneumonia White count 17 hemoglobin 7.5 platelets 49 potassium 4.1 creatinine 0.91 EKG tracing personally reviewed by me-ST segment depression inferolateral leads. Admission labs: Hemoglobin 8.1 Stool occult blood positive Previous labs: Hemoglobin 11.7 on April 2020 Assessment and plan: -Acute GI bleed in a patient who reports dark stools about a month ago. - normocytic anemia. Gastric erosions-per EGD Follow H&H. -Acute COPD exacerbation in a current smoker: Better DuoNeb every 4.. Inhaled Pulmicort. IV Solu-Medrol -Possible right basilar pneumonia Omnicef 300 mg twice a day -Acute congestive heart failure exacerbation from systolic dysfunction EF 30- 35%: Slow to respond IV Lasix. Add Aldactone 25 mg a day -Severe aortic stenosis and moderate aortic regurgitation Follow with cardiology -Moderate mitral regurgitation Follow clinically -Moderate secondary pulmonary hypertension secondary to CHF and COPD -Chronic nicotine dependence patient cigarette smoker Nicotine patch -Essential hypertension Currently blood pressure running of the lower side. Hold Zestril. -Hyperlipidemia Lipitor 80 mg daily at bedtime -Coronary artery disease with a bypass in 2002 and stent Lipitor, aspirin resumed. 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 Alex Gross - outpatient -Primary osteoarthritis Tylenol when necessary -AICD -Acute UTI with cystitis. Tested positive outpatient at urgent care. Omnicef IV Lasix. Add Aldactone. Fluid restriction. Discussed with the patient. Follow with cardiology
[2021-10-07] MEDS: ALPRAZolam 0.5 MG TAB PO PRN (21:38)
[2021-10-07] MEDS: ATORVASTATIN 80 MG TAB PO SCH (21:38)
[2021-10-08] MEDS: IPRATROPIUM-ALBUTEROL 3 ML NEB INHALATION SCH ×7 (00:02→23:28)
[2021-10-08] MEDS: methylPREDNISolone SOD SUCCI 40 MG/ML 1 ML VIAL IV SCH ×2 (00:05→08:24)
[2021-10-08 03:34] VITALS: RESP 18
[2021-10-08 06:44] LABS: Anisocytosis Slight; HCT 25.9 % (34.0-46.0); HGB 7.9 gm/dL (11.4-16.0); Hypochromasia Moderate; MCH 27.9 pg (25.0-35.0); MCHC 30.7 g/dL (31.0-37.0); MCV 90.8 fL (80.0-100.0); Mean Platelet Volume 8.5; Platelet Count 223 k/uL (150-450); RBC 2.85 m/uL (3.80-5.40); RDW 17.5 % (11.5-15.5); WBC 12.3 k/uL (3.8-10.6)
[2021-10-08 06:56] LABS: African American GFR (CKD) 51 (>60 ml/min/1.73 sqM); Anion Gap 4 mmol/L; Blood Urea Nitrogen 35 mg/dL (7-17); Calcium 9.7 mg/dL (8.4-10.2); Carbon Dioxide 32 mmol/L (22-30); Chloride 98 mmol/L (98-107); Glucose 134 mg/dL (74-99); Non-African American GFR(CKD) 44 (>60 ml/min/1.73 sqM); Potassium 4.2 mmol/L (3.5-5.1); Sodium 134 mmol/L (137-145)
[2021-10-08] MEDS: BUDESONIDE 0.5 MG/2 ML NEBU INHALATION SCH ×2 (07:17→19:49)
[2021-10-08] MEDS: CYANOCOBALAMIN 500 MCG TAB PO SCH (08:15)
[2021-10-08] MEDS: PANTOPRAZOLE 40 MG TABLET PO SCH ×2 (08:15→15:41)
[2021-10-08] MEDS: POTASSIUM CHLORIDE ER 20 MEQ TAB.ER PO SCH (08:15)
[2021-10-08] MEDS: ASPIRIN 81 MG PO SCH (08:15)
[2021-10-08] MEDS: CEFDINIR 300 MG CAP PO SCH ×2 (08:16→19:57)
[2021-10-08] MEDS: carvediloL 3.125 MG TAB PO SCH ×2 (08:16→15:41)
[2021-10-08] MEDS: NICOTINE 7MG/24HR PATCH TRANSDERM SCH (08:16)
[2021-10-08] MEDS: SPIRONOLACTONE 25 MG TAB PO SCH (08:19)
[2021-10-08] MEDS: FUROSEMIDE 40 MG TAB PO SCH (08:24)
[2021-10-08 10:12] VITALS: BMI 26.6
--- NOTE | 2021-10-08 11:41 | P.PN ---
Subjective HISTORY OF PRESENTING ILLNESS Patient is a pleasant 81-year-old female with history of hypertension, hyperlipidemia, coronary artery disease status post CABG and PCI approximately 15 years ago in [place], COPD, prior carotid endarterectomy, stroke, tobacco abuse, aortic aneurysm. She normally follows with Dr Mo. She states she has been feeling fatigued and some shortness breath with some decreased appetite over the last week. She noted some darker stools and believes this was related to something she ate. She was found to have new anemia with hemoglobin in the 7-8 and therefore underwent EGD with biopsy 10/03/2021 which showed erosive gastritis however no active bleeding. Was noted to be low at 17, positive occult stool blood, total bilirubin 1.6, Cr 0.9, hemoglobin 8.1, 7.5, 7.1, white blood cell count 10.1. She denies any chest pain or pressure. She states she was having some lower abdominal pain which is mild as well as a dry cough after her procedure yesterday. She states she was previously on aspirin and Plavix and then had been taken off of the Plavix and then suffered a few TIAs and therefore was placed back on the Plavix. No recent stenting or PCI. Last CTA from July 2021 showed ascending aortic aneurysm of 5.7 which was slightly increased from previous however per cardiothoracic note 08/21/2021 showed no significant change by measurements in transverse imaging. Echo from 2019 showed EF 30-35%, with wall motion abnormalities, moderate to severe aortic stenosis, mild tricuspid regurgitation. 10/05/2021- concern for acute heart failure excerbation and patient was started on IV Lasix 10/08/2021 Patient seen and examined at bedside, no acute distress. She is having some mild right sided chest discomfort with ambulation. On exam patient appears to be euvolemic. Shortness of breath has improved. Echocardiogram revealed EF 3035%, mid inferior septal wall, anterior septal wall, apical septum LV wall hypokinetic, LA severely dilated, moderate aortic regurgitation, severe aortic stenosis peak/mean gradient of 65 mmHg/35 mmHg, moderate mitral regurgitation, mild tricuspid regurgitation, moderate pulmonary hypertension RVSP of 54 mmHg, ascending aorta is dilated and measures 5.0 cm She's currently maintained on IV Lasix 40 mg daily, aspirin 81 mg daily, atorvastatin 80 mg nightly, carvedilol 3.125 mg twice a day, Plavix continues to be on hold. Labs, WBC 12.3, hemoglobin 7.9, platelets 223, sodium 134, potassium 4.2, BUN 35, serum creatinine 1.1 PHYSICAL EXAMINATION Vital signs reviewed. CONSTITUTIONAL: No apparent distress. HEENT: Neck supple No JVD. CHEST EXAMINATION: Lungs are clear to auscultation. No chest wall tenderness is noted on palpation or with deep breathing. HEART EXAMINATION: Regular rate and rhythm. S1, S2 heard. Systolic murmur at b ase and apex noted. No gallops or rub. ABDOMEN: Soft, nontender. Positive bowel sounds. EXTREMITIES: 2+ peripheral pulses, no lower extremity edema and no calf tenderness. NEUROLOGIC EXAMINATION: Patient is awake, alert and oriented x3. ASSESSMENT GI bleed, EGD and no active bleeding Acute on chronic heart failure with reduced ejection fraction Iron deficiency anemia Coronary artery disease with history of PCI approximately 15 years ago as well as CABG Ischemic cardiomyopathy Severe Aortic stenosis Ascending aortic aneurysm 5.6 cm by most recent CAT scan per cardiothoracic surgery review which was stable History of stroke/TIA and placed on dual antiplatelets Hypertension Hyperlipidemia Tobacco abuse PLAN Transition to PO Lasix Continue aspirin, statin, and beta alfonso Patient's main presentation of fatigue and shortness breath likely combination related to anemia and valvular heart disease and heart failure exacerbation. EGD appreciated with no active bleeding. Continue patient on baby aspirin given numerous risk factors and prior stroke/TIAs. No indication for redo sternotomy for aortic aneurysm at this time per CTS. The remainder of aortic stenosis treatment may be performed as an outpatient. From a cardiology perspective, patient appears stable. Recommend close follow up outpatient. Nurse practitioner note has been reviewed, I agree with documented findings and plan of care. Patient was seen and examined. Objective - Vital Signs Vital signs: Vital Signs Temp 97.8 F 10/08/21 08:00 Pulse 72 10/08/21 11:05 Resp 18 10/08/21 08:30 BP 100/57 10/08/21 08:00 Pulse Ox 95 10/08/21 08:00 Intake & Output 10/07/21 10/08/21 10/08/21 18:59 06:59 18:59 Intake Total 636 540 90 Output Total 550 500 Balance 86 40 90 Weight 71 kg 70.4 kg 70.4 kg Intake: Oral 636 540 90 Output: Urine 550 500 Other: Voiding Method Toilet Diaper - Labs CBC & Chem 7: 10/08/21 06:19 10/08/21 06:19 Labs: Abnormal Lab Results - Last 24 Hours (Table) 10/08/21 10/08/21 Range/Units 06:19 06:19 WBC 12.3 H (3.8-10.6) k/uL RBC 2.85 L (3.80-5.40) m/uL Hgb 7.9 L (11.4-16.0) gm/dL Hct 25.9 L (34.0-46.0) % MCHC 30.7 L (31.0-37.0) g/dL RDW 17.5 H (11.5-15.5) % Sodium 134 L (137-145) mmol/L Carbon Dioxide 32 H (22-30) mmol/L BUN 35 H (7-17) mg/dL Creatinine 1.18 H (0.52-1.04) mg/dL Glucose 134 H (74-99) mg/dL
[2021-10-08] MEDS: predniSONE 20 MG TAB PO SCH (15:41)
--- NOTE | 2021-10-08 16:18 | P.PN ---
Progress Note - Text Progress Note Date: 10/08/21 Chief Complaint: Unwell History of presenting complaint: This is a very pleasant 81-year-old patient of Dr. Huffman. She also follows with neurologist Dr. Cobb. Chronic stable medical conditions include hypertension, hyperlipidemia, herniated disc in the back, coronary artery disease with bypass. COPD Patient for about a week has not been feeling well. Decreased appetite. Some chills. Some wheezing and cough. Smokes about 5 cigarettes a day. Patient did notice dark stools about a month ago. She felt it could have been from the cookies or brownies she had eaten. She went on to family doctor. Was found to have a hemoglobin that was low. Also at the urgent care she was found to have evidence of UTI. No abdominal pain. October 04: Patient underwent EGD yesterday. Found to have gastric erosions. Seen by cardiology. Aspirin resumed. Patient does feel weak and tired. Also short of breath. She feels she has a bronchitis. Patient also on Keflex for UTI. Chest x-ray ordered. Patient does sleep too well last night. Winston of COPD exacerbation. Increase DuoNeb. IV Solu-Medrol. October 05: Breathing a bit better. Up in a chair. Appetite getting better. October 06: Patient had an episode earlier today shortness of breath and chest pressure. 2-D echo ordered. Patient is on IV Lasix or CHF. Tired. October 07: 2-D echo shows wall motion abnormality and EF of 30 to-35%. Other abnormalities noted. Still short of breath. On IV Lasix. Diet. October 08: 2-D echo results was discussed at length with the patient and niece at the bedside. Patient does get intermittently short of breath. Changed to by mouth Lasix. Also changed to by mouth prednisone. Oral Omnicef. Increase activity. Active Medications Albuterol/Ipratropium (Ipratropium-Albuterol 3 Ml Neb) 3 ml INHALATION RT-TID PRN PRN Reason: Shortness Of Breath Or Wheezing Last Admin: 10/06/21 04:10 Dose: 3 ml Documented by: Albuterol/Ipratropium (Ipratropium-Albuterol 3 Ml Neb) 3 ml INHALATION RT-Q4H AYLIN Last Admin: 10/08/21 15:06 Dose: 3 ml Documented by: Alprazolam (Alprazolam 0.5 Mg Tab) 0.5 mg PO BID PRN PRN Reason: Anxiety Last Admin: 10/07/21 21:38 Dose: 0.5 mg Documented by: Aspirin (Aspirin 81 Mg) 81 mg PO DAILY [facility] Last Admin: 10/08/21 08:15 Dose: 81 mg Documented by: Atorvastatin Calcium (Atorvastatin 80 Mg Tab) 80 mg PO HS [facility] Last Admin: 10/07/21 21:38 Dose: 80 mg Documented by: Budesonide (Budesonide 0.5 Mg/2 Ml Nebu) 0.5 mg INHALATION RT-BID [facility] Last Admin: 10/08/21 07:17 Dose: 0.5 mg Documented by: Carvedilol (Carvedilol 3.125 Mg Tab) 3.125 mg PO BID-W/MEALS [facility] Last Admin: 10/08/21 15:41 Dose: 3.125 mg Documented by: Cefdinir (Cefdinir 300 Mg Cap) 300 mg PO BID [facility]; Protocol Last Admin: 10/08/21 08:16 Dose: 300 mg Documented by: Cyanocobalamin (Cyanocobalamin 500 Mcg Tab) 1,000 mcg PO DAILY [facility] Last Admin: 10/08/21 08:15 Dose: 1,000 mcg Documented by: Furosemide (Furosemide 40 Mg Tab) 40 mg PO DAILY [facility] Last Admin: 10/08/21 08:24 Dose: 40 mg Documented by: Naloxone HCl (Naloxone 0.4 Mg/Ml 1 Ml Vial) 0.2 mg IV Q2M PRN PRN Reason: Opioid Reversal Nicotine (Nicotine 7mg/24hr Patch) 1 patch TRANSDERM DAILY [facility] Last Admin: 10/08/21 08:16 Dose: 1 patch Documented by: Pantoprazole Sodium (Pantoprazole 40 Mg Tablet) 40 mg PO AC-BID [facility] Last Admin: 10/08/21 15:41 Dose: 40 mg Documented by: Potassium Chloride (Potassium Chloride Er 20 Meq Tab.Er) 20 meq PO DAILY [facility] Last Admin: 10/08/21 08:15 Dose: 20 meq Documented by: Prednisone (Prednisone 20 Mg Tab) 40 mg PO DAILY [facility] Last Admin: 10/08/21 15:41 Dose: 40 mg Documented by: Spironolactone (Spironolactone 25 Mg Tab) 25 mg PO DAILY [facility] Last Admin: 10/08/21 08:19 Dose: 25 mg Documented by: Past medical history to include: Coronary artery disease, stroke, GERD, hypertension, hyperlipidemia, back pain with herniated disc carotid bypass in 2002 AICD, anxiety. Social history: Video. Smoking since 9069 about a pack a day now down to a about 5 cigarettes a day. No alcohol Family history: Bowel cancer Physical examination: VITAL SIGNS: 98.1, 77, 18, 119/69, 97% room air GENERAL: Sitting of the edge of the bed awake EYES: Pupils equal. Conjunctiva normal. HEENT: External appearance of nose and ears normal, oral cavity grossly normal. NECK: JVD not raised; masses not palpable. HEART: First and second heart sounds are normal; no edema. LUNGS: Respiratory rate normal, decreased breaths breath sounds. ABDOMEN: Soft, nontender, liver spleen not palpable, no masses palpable. PSYCH: Alert and oriented x3; mood and affect normal. Musculoskeletal: Evidence of OA, several joints INVESTIGATIONS, reviewed in the clinical context: October 08: White count 12.3 with 7.9 pressure 4.2 creatinine 1.18 2-D echocardiogram: EF 30-35%. Multiple wall motion akinetic. Moderate aortic regurgitation, severe aortic stenosis, moderate mitral regurgitation, moderate pulmonary hypertension October 07: Potassium 4.3 creatinine 1.01 October 06: Potassium 4 creatinine 1.03 chest x-ray: Venous prominence October 05: White count 8.1 hemoglobin 7.7 October 04:Chest x-ray film personally reviewed by me-possible right basilar pneumonia White count 17 hemoglobin 7.5 platelets 49 potassium 4.1 creatinine 0.91 EKG tracing personally reviewed by me-ST segment depression inferolateral leads. Admission labs: Hemoglobin 8.1 Stool occult blood positive Previous labs: Hemoglobin 11.7 on April 2020 Assessment and plan: -Acute GI bleed in a patient who reports dark stools about a month ago. - normocytic anemia. Gastric erosions-per EGD Follow H&H. -Acute COPD exacerbation in a current smoker: Better DuoNeb every 4.. Inhaled Pulmicort. IV [id number] to prednisone -Possible right basilar pneumonia Omnicef 300 mg twice a day -Acute congestive heart failure exacerbation from systolic dysfunction EF 30- 35%: Slow to respond IV Lasix-changed to by mouth Lasix 40 mg daily. Aldactone 25 mg a day -Severe aortic stenosis and moderate aortic regurgitation Follow with cardiology -Moderate mitral regurgitation Follow clinically -Moderate secondary pulmonary hypertension secondary to CHF and COPD -Chronic nicotine dependence patient cigarette smoker Nicotine patch -Essential hypertension Currently blood pressure running of the lower side. Hold Zestril. -Hyperlipidemia Lipitor 80 mg daily at bedtime -Coronary artery disease with a bypass in 2002 and stent Lipitor, aspirin resumed. 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 Alex Gross - outpatient -Primary osteoarthritis Tylenol when necessary -AICD -Acute UTI with cystitis. Tested positive outpatient at urgent care. Omnicef Changed to by mouth Lasix. Aldactone. Fluid restriction. Discussed length with the patient and niece of the bedside. Prognosis guarded. Increase activity as tolerated. Hopefully home tomorrow.
[2021-10-08] MEDS: SODIUM FERRIC GLUCONAT-SUCROSE 125 MG in SODIUM CHLORIDE 0.9% 100 ML IVPB SCH (17:26)
[2021-10-08] MEDS: ATORVASTATIN 80 MG TAB PO SCH (19:57)
[2021-10-08] MEDS: ALPRAZolam 0.5 MG TAB PO PRN (22:15)
[2021-10-09] MEDS: IPRATROPIUM-ALBUTEROL 3 ML NEB INHALATION SCH ×3 (06:22→11:49)
[2021-10-09] MEDS: BUDESONIDE 0.5 MG/2 ML NEBU INHALATION SCH (08:07)
[2021-10-09] MEDS: CEFDINIR 300 MG CAP PO SCH (08:52)
[2021-10-09] MEDS: NICOTINE 7MG/24HR PATCH TRANSDERM SCH (08:52)
[2021-10-09] MEDS: ASPIRIN 81 MG PO SCH (08:53)
[2021-10-09] MEDS: POTASSIUM CHLORIDE ER 20 MEQ TAB.ER PO SCH (08:53)
[2021-10-09] MEDS: SPIRONOLACTONE 25 MG TAB PO SCH (08:53)
[2021-10-09] MEDS: predniSONE 20 MG TAB PO SCH (08:53)
[2021-10-09] MEDS: CYANOCOBALAMIN 500 MCG TAB PO SCH (08:53)
[2021-10-09] MEDS: PANTOPRAZOLE 40 MG TABLET PO SCH (08:53)
[2021-10-09] MEDS: carvediloL 3.125 MG TAB PO SCH (08:53)
[2021-10-09] MEDS: FUROSEMIDE 40 MG TAB PO SCH (08:53)
[2021-10-09] MEDS: SODIUM FERRIC GLUCONAT-SUCROSE 125 MG in SODIUM CHLORIDE 0.9% 100 ML IVPB SCH (08:54)
[2021-10-09 09:19] VITALS: BP 123/68; PULSE 77; TEMP 98.4
--- NOTE | 2021-10-09 11:04 | PN ---
PROGRESS NOTE FOLLOW-UP NOTE: Mona is a 81-year-old lady who is admitted to hospital with complex and multiple medical problems, including symptomatic anemia, ascending aortic aneurysm, severe aortic stenosis and congestive heart failure. She continues to have exertional shortness of breath and chest discomfort, probably related to the anemia with a hemoglobin less than 8. I switched her Lasix to p.o. yesterday. She is very comfortable at rest. She is saturating at 95% on room air. On exam, heart rate is 80 beats per minute. Blood pressure is /60, respiratory rate is 18. Chest exam reveals good air entry bilaterally. Heart exam reveals first and second heart sounds, a grade 4/6 ejection systolic murmur in the aortic area. Abdomen is soft. Examination of extremities did not reveal any edema. Peripheral pulses are felt. Labs show a hemoglobin of 7.9, potassium is 4.2, BUN is 35, creatinine is 1.1. ASSESSMENT: 1. Symptomatic anemia. 2. Severe aortic stenosis. 3. Coronary artery disease, status post bypass surgery. 4. Ascending aortic aneurysm. PLAN: Patient needs evaluation for aortic valve replacement and possible aortic aneurysm repair once her anemia issues are addressed. Please try to keep the hemoglobin above 10. MMODL / IJN: [id number] /
--- NOTE | 2021-10-09 17:59 | P.DS ---
Providers Date of admission: 10/04/21 09:28 Expected date of discharge: 10/09/21 Attending physician: Deacon Pool Consults: 10/02/21 20:58 Consult Physician Routine Consulting Provider: Tabatha Mo Consult Reason/Comments: gi bleed Do you want consulting provider notified?: Yes 10/03/21 17:53 Consult Physician Routine Consulting Provider: Mark Nelson Consult Reason/Comments: CAD Do you want consulting provider notified?: Yes [facility] [place] [facility] Course: Chief Complaint: Unwell History of presenting complaint: This is a very pleasant 81-year-old patient of Dr. Huffman. She also follows with neurologist Dr. Cobb. Chronic stable medical conditions include hypertension, hyperlipidemia, herniated disc in the back, coronary artery disease with bypass. COPD Patient for about a week has not been feeling well. Decreased appetite. Some chills. Some wheezing and cough. Smokes about 5 cigarettes a day. Patient did notice dark stools about a month ago. She felt it could have been from the cookies or brownies she had eaten. She went on to family doctor. Was found to have a hemoglobin that was low. Also at the urgent care she was found to have evidence of UTI. No abdominal pain. EGD - gastric erosions. Seen by cardiology. Aspirin resumed. Patient does feel weak and tired. Also short of breath. She feels she has a bronchitis. Patient also on Keflex for UTI. Chest x-ray ordered. COPD exacerbation. Increase DuoNeb. IV Solu-Medrol. 2-D echo showed EF 30-35%. Aortic stenosis and aortic regurgitation. Lasix and Aldactone added. Smoking counseling done. October 09: Doing better. Care was discussed length with the patient. About Lasix. Medication discussed. Will follow up with Dr. Huffman and cardiology. Discussion and discharge planning more than 35 minutes Past medical history to include: Coronary artery disease, stroke, GERD, hypertension, hyperlipidemia, back pain with herniated disc carotid bypass in 2002 AICD, anxiety. Social history: Video. Smoking since 9069 about a pack a day now down to a about 5 cigarettes a day. No alcohol Family history: Bowel cancer Physical examination: VITAL SIGNS: 98.4, 77, 18, 123/68, 95% room air GENERAL: Sitting of the edge of the bed awake EYES: Pupils equal. Conjunctiva normal. HEENT: External appearance of nose and ears normal, oral cavity grossly normal. NECK: JVD not raised; masses not palpable. HEART: First and second heart sounds are normal; no edema. Mom hour. LUNGS: Respiratory rate normal, decreased breaths breath sounds. ABDOMEN: Soft, nontender, liver spleen not palpable, no masses palpable. PSYCH: Alert and oriented x3; mood and affect normal. Musculoskeletal: Evidence of OA, several joints INVESTIGATIONS, reviewed in the clinical context: October 08: White count 12.3 with 7.9 pressure 4.2 creatinine 1.18 2-D echocardiogram: EF 30-35%. Multiple wall motion akinetic. Moderate aortic regurgitation, severe aortic stenosis, moderate mitral regurgitation, moderate pulmonary hypertension October 04:Chest x-ray film personally reviewed by me-possible right basilar pneumonia White count 17 hemoglobin 7.5 platelets 49 potassium 4.1 creatinine 0.91 EKG tracing personally reviewed by me-ST segment depression inferolateral leads. Admission labs: Hemoglobin 8.1 Stool occult blood positive Previous labs: Hemoglobin 11.7 on April 2020 Assessment and plan: -Acute GI bleed in a patient who reports dark stools about a month ago. - normocytic anemia. Gastric erosions-per EGD Follow H&H. Plavix discontinued. Has been to continue. -Acute COPD exacerbation in a current smoker: Better DuoNeb every 4.. Inhaled Pulmicort. IV [id number] to prednisone then discontinued -Possible right basilar pneumonia Omnicef 300 mg twice a day: Completed -Acute congestive heart failure exacerbation from systolic dysfunction EF 30- 35%: Slow to respond IV Lasix-changed to by mouth Lasix 40 mg daily. Aldactone 25 mg a day -Severe aortic stenosis and moderate aortic regurgitation Follow with cardiology -Moderate mitral regurgitation Follow clinically -Moderate secondary pulmonary hypertension secondary to CHF and COPD -Chronic nicotine dependence patient cigarette smoker Nicotine patch -Essential hypertension -Hyperlipidemia Lipitor 80 mg daily at bedtime -Coronary artery disease with a bypass in 2002 and stent Lipitor, aspirin resumed. 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 Alex Gross - outpatient -Primary osteoarthritis Tylenol when necessary -AICD -Acute UTI with cystitis. Tested positive outpatient at urgent care. Omnicef: Completed course Disposition: Home Plan - Discharge Summary New Discharge Prescriptions: New Spironolactone [Aldactone] 25 mg PO DAILY #30 tab Furosemide [Lasix] 40 mg PO DAILY #30 tab Pantoprazole [Protonix] 40 mg PO AC-BID #60 tab carvediloL [Coreg] 3.125 mg PO BID-W/MEALS #60 tab Nicotine 7Mg/24Hr Patch [Habitrol] 1 patch TRANSDERM DAILY #14 patch Potassium Chloride ER [K-Dur 20] 20 meq PO DAILY #30 tablet Continue Cholecalciferol [Vitamin D3 (25 Mcg = 1000 Iu)] 25 mcg PO DAILY Atorvastatin [Lipitor] 80 mg PO HS Cyanocobalamin (Vitamin B-12) [Vitamin B-12] 1,000 mcg PO DAILY Aspirin 81 mg PO DAILY #30 chewable calcium polycarbophiL [Fibercon] 625 mg PO DAILY Ipratropium-Albuterol Nebulize [Duoneb 0.5 mg-3 mg/3 ml Soln] 3 ml INHALATION RT-TID Budesonide [Pulmicort] 0.5 mg INHALATION RT-BID ALPRAZolam [Xanax] 0.5 mg PO BID PRN PRN Reason: Anxiety Discontinued carvediloL 25 mg PO BID Clopidogrel Bisulfate [Plavix] 75 mg PO DAILY #30 tab Famotidine [Pepcid] 20 mg PO BID Cefuroxime Axetil [Ceftin] 500 mg PO BID No Action Lisinopril [Zestril] 10 mg PO DAILY Discharge Medication List Cholecalciferol [Vitamin D3 (25 Mcg = 1000 Iu)] 25 mcg PO DAILY 06/06/15 [History] Atorvastatin [Lipitor] 80 mg PO HS 01/03/16 [History] Lisinopril [Zestril] 10 mg PO DAILY 12/29/19 [History] Cyanocobalamin (Vitamin B-12) [Vitamin B-12] 1,000 mcg PO DAILY 03/08/20 [History] Aspirin 81 mg PO DAILY #30 chewable 03/11/20 [Rx] ALPRAZolam [Xanax] 0.5 mg PO BID PRN 10/02/21 [History] Budesonide [Pulmicort] 0.5 mg INHALATION RT-BID 10/02/21 [History] Ipratropium-Albuterol Nebulize [Duoneb 0.5 mg-3 mg/3 ml Soln] 3 ml INHALATION RT-TID 10/02/21 [History] calcium polycarbophiL [Fibercon] 625 mg PO DAILY 10/02/21 [History] Furosemide [Lasix] 40 mg PO DAILY #30 tab 10/09/21 [Rx] Nicotine 7Mg/24Hr Patch [Habitrol] 1 patch TRANSDERM DAILY #14 patch 10/09/21 [Rx] Pantoprazole [Protonix] 40 mg PO AC-BID #60 tab 10/09/21 [Rx] Potassium Chloride ER [K-Dur 20] 20 meq PO DAILY #30 tablet 10/09/21 [Rx] Spironolactone [Aldactone] 25 mg PO DAILY #30 tab 10/09/21 [Rx] carvediloL [Coreg] 3.125 mg PO BID-W/MEALS #60 tab 10/09/21 [Rx] Follow up Appointment(s)/Referral(s): Nishant Huffman DO [Primary Care Provider] - 1-2 days Tabatha Mo MD [STAFF PHYSICIAN] - 2 Weeks Michael Mo MD [STAFF PHYSICIAN] - 1 Week Patient Instructions/Handouts: Gastrointestinal Bleeding (GEN), Anemia (DC)
== END 2021-10-09 12:33 | disposition home or self-care (01) | DRG 377 ==
LOC: EC 17:25 → 6NMEDSUR 20:58 → OBSVTOIN 10-04 09:28
PROVIDERS: ADMIT Hospitalist; ATTEND Hospitalist
PROC: 0DB78ZX Excision of Stomach, Pylorus, Via Natural or Artificial Opening Endoscopic, Diagnostic (ICD-10-PCS; principal; 2021-10-03 07:30)
DX: K92.2 Gastrointestinal hemorrhage, unspecified (principal); I50.23 Acute on chronic systolic (congestive) heart failure; J18.9 Pneumonia, unspecified organism; J44.1 Chronic obstructive pulmonary disease with (acute) exacerbation; N30.00 Acute cystitis without hematuria; D50.9 Iron deficiency anemia, unspecified; K25.4 Chronic or unspecified gastric ulcer with hemorrhage; I27.29 Other secondary pulmonary hypertension; I71.2 Thoracic aortic aneurysm, without rupture; I11.0 Hypertensive heart disease with heart failure; Z20.822 Contact with and (suspected) exposure to COVID-19; E78.5 Hyperlipidemia, unspecified; K29.60 Other gastritis without bleeding; K21.9 Gastro-esophageal reflux disease without esophagitis; I25.5 Ischemic cardiomyopathy; I25.10 Atherosclerotic heart disease of native coronary artery without angina pectoris; I25.2 Old myocardial infarction; I08.0 Rheumatic disorders of both mitral and aortic valves; M54.9 Dorsalgia, unspecified; F41.8 Other specified anxiety disorders; M19.91 Primary osteoarthritis, unspecified site; I99.9 Unspecified disorder of circulatory system; F17.210 Nicotine dependence, cigarettes, uncomplicated; Z71.6 Tobacco abuse counseling; Z79.82 Long term (current) use of aspirin; Z79.51 Long term (current) use of inhaled steroids; Z79.02 Long term (current) use of antithrombotics/antiplatelets; Z79.899 Other long term (current) drug therapy; Z95.810 Presence of automatic (implantable) cardiac defibrillator; Z95.828 Presence of other vascular implants and grafts; Z95.1 Presence of aortocoronary bypass graft; Z86.79 Personal history of other diseases of the circulatory system; Z86.73 Personal history of transient ischemic attack (TIA), and cerebral infarction without residual deficits; Z95.5 Presence of coronary angioplasty implant and graft; Z87.81 Personal history of (healed) traumatic fracture; Z86.010 Personal history of colon polyps; Z87.19 Personal history of other diseases of the digestive system; Z90.49 Acquired absence of other specified parts of digestive tract; Z98.890 Other specified postprocedural states; Z80.0 Family history of malignant neoplasm of digestive organs; Z80.3 Family history of malignant neoplasm of breast; Z80.52 Family history of malignant neoplasm of bladder; Z80.51 Family history of malignant neoplasm of kidney
CPT/HCPCS: 36415; 43239; 71046; 80048; 80053; 82272; 82607; 82728; 82746; 83540; 83550; 84145; 85025; 85027; 85610; 85730; 86850; 86900; 86901; 87636; 88305; 93005; 93306; 94640; 96374; 99285

== ENCOUNTER 2021-10-21 11:55 | Inpatient (IN) | payer MEDICARE, BC ==
--- NOTE | 2021-10-21 12:34 | ED ---
General Adult HPI - General Chief complaint: Recheck/Abnormal Lab/Rx Stated complaint: abn labs, kidney issues Time Seen by Provider: 10/21/21 12:14 Source: patient, RN notes reviewed, old records reviewed Mode of arrival: ambulatory Limitations: no limitations - History of Present Illness Initial comments: 81-year-old female presenting for evaluation of abnormal laboratory testing. She had blood drawn at her primary care physician yesterday and was noted to have elevated BUN and creatinine. Patient states she has history of congestive heart failure she is on Lasix and spironolactone. She states that she's had decreased urine output over the past 24 hours. She states she has been eating and drinking but not well. His been no vomiting. No diarrhea. No fever. No chest pain. She has some mild dyspnea which she states is baseline. - Related Data Home Medications Medication Instructions Recorded Confirmed Cholecalciferol [Vitamin D3 (25 25 mcg PO DAILY 06/06/15 10/02/21 Mcg = 1000 Iu)] Atorvastatin [Lipitor] 80 mg PO HS 01/03/16 10/02/21 Lisinopril [Zestril] 10 mg PO DAILY 12/29/19 10/02/21 Cyanocobalamin (Vitamin B-12) 1,000 mcg PO DAILY 03/08/20 10/02/21 [Vitamin B-12] ALPRAZolam [Xanax] 0.5 mg PO BID PRN 10/02/21 10/02/21 Budesonide [Pulmicort] 0.5 mg INHALATION RT-BID 10/02/21 10/02/21 Ipratropium-Albuterol Nebulize 3 ml INHALATION RT-TID 10/02/21 10/02/21 [Duoneb 0.5 mg-3 mg/3 ml Soln] calcium polycarbophiL [Fibercon] 625 mg PO DAILY 10/02/21 10/02/21 Previous Rx's Medication Instructions Recorded Aspirin 81 mg PO DAILY #30 chewable 03/11/20 Furosemide [Lasix] 40 mg PO DAILY #30 tab 10/09/21 Nicotine 7Mg/24Hr Patch [Habitrol] 1 patch TRANSDERM DAILY #14 patch 10/09/21 Pantoprazole [Protonix] 40 mg PO AC-BID #60 tab 10/09/21 Potassium Chloride ER [K-Dur 20] 20 meq PO DAILY #30 tablet 10/09/21 Spironolactone [Aldactone] 25 mg PO DAILY #30 tab 10/09/21 carvediloL [Coreg] 3.125 mg PO BID-W/MEALS #60 tab 10/09/21 Allergies Allergy/AdvReac Type Severity Reaction Status Date / Time No Known Allergies Allergy Verified 10/21/21 12:10 Review of Systems ROS Statement: Those systems with pertinent positive or pertinent negative responses have been documented in the HPI. ROS Other: All systems not noted in ROS Statement are negative. Past Medical History Past Medical History: Coronary Artery Disease (CAD), CVA/TIA, GERD/Reflux, Hyperlipidemia, Hypertension, Myocardial Infarction ([place]), Osteoarthritis (OA), Vascular Disorder Additional Past Medical History / Comment(s): 1998 CVA with no residual, 02/2020 TIA, caratid stenosis with L caratid endartectomy, pt states she has had irregular heart beat in past but cannot recall type, vertigo, balance issues, back pain/disc problems, benign colon polyp Last Myocardial Infarction Date:: 2000 History of Any Multi-Drug Resistant Organisms: None Reported Past Surgical History: AICD, Appendectomy, Bowel Resection, Cholecystectomy, Coronary Bypass/CABG, Heart Catheterization With Stent, Hernia Repair, Orthopedic Surgery Additional Past Surgical History / Comment(s): Arch studies, 2000 PCI with stents, 2002 CABG-3 vessel, 2002 AICD, AICD gen changes, DFTs, 2002 L carotid endartectomy, bowel resection for benign flat polyp, abdominal hernia repair, L hip fracture with surgery, L arm benign lesion removed, colonoscopies/polyps Past Anesthesia/Blood Transfusion Reactions: No Reported Reaction, Motion Sickness Date of Last Stent Placement:: 2000 Type of Cardiac Device: AICD Device Placement Date:: 2002- Past Psychological History: Anxiety Smoking Status: Current every day smoker Past Alcohol Use History: None Reported Past Drug Use History: None Reported - Past Family History Sister(s) Family Medical History: Cancer Additional Family Medical History / Comment(s): Sister had breast/bladder cancers. Son(s) Family Medical History: Cancer Additional Family Medical History / Comment(s): pancreatic cancer Father Family Medical History: Cancer Additional Family Medical History / Comment(s): Bowel cancer. Mother Family Medical History: Cancer Additional Family Medical History / Comment(s): Mother had bowel cancer twice and 2nd time metastasized to her kidney. General Exam Limitations: no limitations General appearance: alert, in no apparent distress Head exam: Present: atraumatic, normocephalic Eye exam: Present: normal appearance, PERRL ENT exam: Present: mucous membranes dry Neck exam: Present: normal inspection. Absent: tenderness, meningismus Respiratory exam: Present: normal lung sounds bilaterally. Absent: respiratory distress Cardiovascular Exam: Present: regular rate, normal rhythm, systolic murmur GI/Abdominal exam: Present: soft. Absent: distended, tenderness, guarding, rebound Extremities exam: Present: normal inspection, normal capillary refill. Absent: pedal edema, calf tenderness Neurological exam: Present: alert, oriented X3, CN II-XII intact. Absent: motor sensory deficit Psychiatric exam: Present: normal affect, normal mood Skin exam: Present: warm, dry, intact. Absent: cyanosis, diaphoretic Course Vital Signs 10/21/21 10/21/21 12:06 12:42 Temperature 98.4 F Pulse Rate 72 66 Respiratory 20 16 Rate Blood Pressure 88/51 96/53 O2 Sat by Pulse 96 97 Oximetry EKG Findings - EKG Comments: EKG Findings:: EKG: Sinus rhythm rate of 71, OK interval 168, QRS duration 107, QTC 380 T-wave inversion in V2 no ST segment elevation. Medical Decision Making - Medical Decision Making 81-year-old female presenting with decreased urine output, abnormal outpatient labs including elevated BUN and creatinine. Patient really has no significant complaints. Chest x-rays performed which is negative for acute cardiopulmonary disease. She has normal white blood cell count, hemoglobin is improved at 10.6. She is in acute renal failure with a creatinine of 3.84. She is able to give urine sample the emergency department. She will be placed on IV fluids I suspect this is prerenal as she is not been eating and drinking well and is on multiple diuretics. Case discussed with Dr. Pool who will admit. Ultrasound of the kidneys and bladder will be obtained and nephrology will be placed on consult. - Lab Data Result diagrams: 10/21/21 12:35 10/21/21 12:35 Lab Results 10/21/21 10/21/21 10/21/21 Range/Units 12:35 12:35 12:35 WBC 6.1 (3.8-10.6) k/uL RBC 3.57 L (3.80-5.40) m/uL Hgb 10.6 L (11.4-16.0) gm/dL Hct 31.7 L (34.0-46.0) % MCV 88.7 (80.0-100.0) fL MCH 29.7 (25.0-35.0) pg MCHC 33.4 (31.0-37.0) g/dL RDW 18.4 H (11.5-15.5) % Plt Count 142 L (150-450) k/uL MPV 7.8 Neutrophils % 76 % Lymphocytes % 11 % Monocytes % 6 % Eosinophils % 3 % Basophils % 1 % Neutrophils # 4.6 (1.3-7.7) k/uL Lymphocytes # 0.7 L (1.0-4.8) k/uL Monocytes # 0.4 (0-1.0) k/uL Eosinophils # 0.2 (0-0.7) k/uL Basophils # 0.0 (0-0.2) k/uL Hypochromasia Slight Anisocytosis Slight PT 10.1 (9.0-12.0) sec INR 0.9 (<1.2) APTT 23.9 (22.0-30.0) sec Sodium (137-145) mmol/L Potassium (3.5-5.1) mmol/L Chloride (98-107) mmol/L Carbon Dioxide (22-30) mmol/L Anion Gap mmol/L BUN (7-17) mg/dL Creatinine (0.52-1.04) mg/dL Est GFR (CKD-EPI)AfAm (>60 ml/min/1.73 sqM) Est GFR (CKD-EPI)NonAf (>60 ml/min/1.73 sqM) Glucose (74-99) mg/dL Plasma Lactic Acid Ezequiel (0.7-2.0) mmol/L Calcium (8.4-10.2) mg/dL Magnesium (1.6-2.3) mg/dL Total Bilirubin (0.2-1.3) mg/dL AST (14-36) U/L ALT (4-34) U/L Alkaline Phosphatase (38-126) U/L Total Protein (6.3-8.2) g/dL Albumin (3.5-5.0) g/dL Urine Color Light Yellow Urine Appearance Cloudy H (Clear) Urine pH 5.0 (5.0-8.0) Ur Specific Jefferson 1.006 (1.001-1.035) Urine Protein Negative (Negative) Urine Glucose (UA) Negative (Negative) Urine Ketones Negative (Negative) Urine Blood Trace H (Negative) Urine Nitrite Negative (Negative) Urine Bilirubin Negative (Negative) Urine Urobilinogen <2.0 (<2.0) mg/dL Ur Leukocyte Esterase Moderate H (Negative) Urine RBC 4 (0-5) /hpf Urine WBC 8 H (0-5) /hpf Ur Squamous Epith Cells 6 H (0-4) /hpf Amorphous Sediment Moderate H (None) /hpf Urine Bacteria Occasional H (None) /hpf Hyaline Casts 9 H (0-2) /lpf Urine Mucus Rare H (None) /hpf 10/21/21 10/21/21 Range/Units 12:35 12:35 WBC (3.8-10.6) k/uL RBC (3.80-5.40) m/uL Hgb (11.4-16.0) gm/dL Hct (34.0-46.0) % MCV (80.0-100.0) fL MCH (25.0-35.0) pg MCHC (31.0-37.0) g/dL RDW (11.5-15.5) % Plt Count (150-450) k/uL MPV Neutrophils % % Lymphocytes % % Monocytes % % Eosinophils % % Basophils % % Neutrophils # (1.3-7.7) k/uL Lymphocytes # (1.0-4.8) k/uL Monocytes # (0-1.0) k/uL Eosinophils # (0-0.7) k/uL Basophils # (0-0.2) k/uL Hypochromasia Anisocytosis PT (9.0-12.0) sec INR (<1.2) APTT (22.0-30.0) sec Sodium 130 L (137-145) mmol/L Potassium 5.0 (3.5-5.1) mmol/L Chloride 93 L (98-107) mmol/L Carbon Dioxide 26 (22-30) mmol/L Anion Gap 11 mmol/L BUN 33 H (7-17) mg/dL Creatinine 3.84 H (0.52-1.04) mg/dL Est GFR (CKD-EPI)AfAm 12 (>60 ml/min/1.73 sqM) Est GFR (CKD-EPI)NonAf 11 (>60 ml/min/1.73 sqM) Glucose 108 H (74-99) mg/dL Plasma Lactic Acid Ezequiel 1.1 (0.7-2.0) mmol/L Calcium 9.3 (8.4-10.2) mg/dL Magnesium 2.0 (1.6-2.3) mg/dL Total Bilirubin 2.3 H (0.2-1.3) mg/dL AST 52 H (14-36) U/L ALT 42 H (4-34) U/L Alkaline Phosphatase 90 (38-126) U/L Total Protein 6.6 (6.3-8.2) g/dL Albumin 4.0 (3.5-5.0) g/dL Urine Color Urine Appearance (Clear) Urine pH (5.0-8.0) Ur Specific Jefferson (1.001-1.035) Urine Protein (Negative) Urine Glucose (UA) (Negative) Urine Ketones (Negative) Urine Blood (Negative) Urine Nitrite (Negative) Urine Bilirubin (Negative) Urine Urobilinogen (<2.0) mg/dL Ur Leukocyte Esterase (Negative) Urine RBC (0-5) /hpf Urine WBC (0-5) /hpf Ur Squamous Epith Cells (0-4) /hpf Amorphous Sediment (None) /hpf Urine Bacteria (None) /hpf Hyaline Casts (0-2) /lpf Urine Mucus (None) /hpf Disposition Clinical Impression: DOMINIC (acute kidney injury) Disposition: ADMITTED IP TO THIS [facility] Condition: Stable Is patient prescribed a controlled substance at d/c from ED?: No Referrals: Nishant Huffman DO [Primary Care Provider] - 1-2 days Time of Disposition: 13:20 Decision to Admit Reason: Admit from EC Decision Date: 10/21/21 Decision Time: 13:20
--- NOTE | 2021-10-21 13:00 | XR ---
EXAMINATION TYPE: XR chest 2V DATE OF EXAM: 10/21/2021 COMPARISON: Chest x-ray 10/06/2021 HISTORY: Weakness TECHNIQUE: Frontal and lateral views of the chest are obtained. FINDINGS: There are coronary artery calcifications. Aorta is dense and aneurysmal. There is no focal air space opacity, pleural effusion, or pneumothorax seen. The cardiac silhouette size is stable. P atient is post median sternotomy. Generators present in left pectoral region, there are leads in righ t atrium and ventricle. The osseous structures are intact. IMPRESSION: No acute cardiopulmonary process. Aortic aneurysm. Coronary artery disease. Postop casillas es.
[2021-10-21 13:09] LABS: Anisocytosis Slight; Basophils % (A) 1 %; Calcium 9.3 mg/dL (8.4-10.2); Eosinophils # (A) 0.2 k/uL (0-0.7); Eosinophils % (A) 3 %; HCT 31.7 % (34.0-46.0); HGB 10.6 gm/dL (11.4-16.0); Hypochromasia Slight; Lymphocytes # (A) 0.7 k/uL (1.0-4.8); Lymphocytes % (A) 11 %; MCH 29.7 pg (25.0-35.0); MCHC 33.4 g/dL (31.0-37.0); MCV 88.7 fL (80.0-100.0); Mean Platelet Volume 7.8; Monocytes # (A) 0.4 k/uL (0-1.0); Monocytes % (A) 6 %; Neutrophils # (A) 4.6 k/uL (1.3-7.7); Neutrophils % (A) 76 %; Platelet Count 142 k/uL (150-450); RBC 3.57 m/uL (3.80-5.40); RDW 18.4 % (11.5-15.5); Total Bilirubin 2.3 mg/dL (0.2-1.3); Total Protein 6.6 g/dL (6.3-8.2); WBC 6.1 k/uL (3.8-10.6)
[2021-10-21 13:16] LABS: Amorphous Sediment,Urine Moderate /hpf; Appearance,Urine Cloudy (Clear); Bacteria,Urine Occasional /hpf; Bilirubin,Urine Negative (Negative); Blood,Urine Trace (Negative); Color,Urine Light Yellow; Glucose,Urine (UA) Negative (Negative); Hyaline Casts,Urine 9 /lpf (0-2); Ketones,Urine Negative (Negative); Leukocyte Esterase,Urine Moderate (Negative); Mucus,Urine Rare /hpf; Nitrite,Urine Negative (Negative); Protein,Urine Negative (Negative); RBC,Urine 4 /hpf (0-5); Specific Gravity,Urine 1.006 (1.001-1.035); Squamous Epithelial Cell,Urine 6 /hpf (0-4); Urobilinogen,Urine <2.0 mg/dL (<2.0); WBC,Urine 8 /hpf (0-5)
[2021-10-21 13:20] LABS: INR 0.9 (<1.2); Partial Thromboplastin Time 23.9 sec (22.0-30.0); Prothrombin Time 10.1 sec (9.0-12.0)
[2021-10-21] MEDS ORDERED: SODIUM CHLORIDE 0.9% 500 ML 500 ML IV ONE (13:21)
[2021-10-21] MEDS ORDERED: ACETAMINOPHEN TAB 325 MG TAB PO PRN (13:22)
[2021-10-21] MEDS ORDERED: NALOXONE 0.4 MG/ML 1 ML VIAL IV PRN ×2 (13:22→13:38)
[2021-10-21] MEDS ORDERED: SODIUM CHLORIDE 0.9% 1,000 ML IV SCH (13:30)
[2021-10-21] MEDS ORDERED: CALCIUM CARBONATE 500 MG CHEWABLE PO PRN (13:37)
[2021-10-21] MEDS ORDERED: LACTULOSE 20 GM/30 ML CUP PO PRN (13:37)
[2021-10-21] MEDS ORDERED: MELATONIN 3 MG TABLET PO PRN (13:38)
[2021-10-21] MEDS ORDERED: PROCHLORPERAZINE 5 MG TAB PO PRN (13:38)
[2021-10-21] MEDS ORDERED: ENOXAPARIN 40 MG/0.4 ML SYRINGE SQ SCH (13:45)
--- NOTE | 2021-10-21 14:28 | P.HPIM ---
History of Present Illness H&P Date: 10/21/21 Chief Complaint: Worsening renal function History of presenting complaint: This is a very pleasant 81-year-old patient of Dr. Huffman. neurologist Dr. Cobb. Chronic stable medical conditions include hypertension, hyperlipidemia, herniated disc in the back, coronary artery disease with bypass. COPD Was hospitalized 2 weeks ago had EGD that shows gastric erosions. Aspirin was resumed. Also at COPD exacerbation. 2-D echo showed EF of 30-35% and patient also found to aortic stenosis aortic regurgitation. Patient had gone to see her superintendent geophysical laboratory Dr. Lalit Mo yesterday was started on iron supplement. Subsequently ventricular blood drawn with a family doctor. She got a message today that her kidney function had worsened she needs to come back to the ER. Patient has been feeling dizzy lightheaded. Tired. Decreased appetite. Decreased urine output. Denies any fever and chills. Patient is accompanied by her granddaughter the ER. . Review of systems: GEN.: Decreased appetite chills EYES: None HEENT: None NECK: None RESPIRATORY: As above CARDIOVASCULAR: None GASTROINTESTINAL: As above GENITOURINARY: Strong urine MUSCULOSKELETAL: Some joint pains] LYMPHATICS: None HEMATOLOGICAL: None PSYCHIATRY: None NEUROLOGICAL: None Past medical history to include: Coronary artery disease, stroke, GERD, hypertension, hyperlipidemia, back pain with herniated disc carotid bypass in 2002 AICD, anxiety. COPD. CHF EF 30-35%. Aortic stenosis/aortic regurgitation Social history: Video. Smoking since 1970 about a pack a day now down to a about 5 cigarettes a day. No alcohol Family history: Bowel cancer Physical examination: VITAL SIGNS: [98.4, 77, 18, 123/68, 95% room air GENERAL: BMI 25, retiring bed, awake. EYES: [Pupils equal. Conjunctiva pale l. HEENT: External appearance of nose and ears normal, oral cavity grossly normal. NECK: JVD not raised; masses not palpable. HEART: First and second heart sounds are normal; no edema. LUNGS: Respiratory rate normal; decreased breath sounds. ABDOMEN: Soft, nontender, liver spleen not palpable, no masses palpable. PSYCH: Alert and oriented x3; mood and affect normal. MUSCULOSKELETAL:No Clubbing/cyanosis;muscles-grossly intact. Evidence of OA NEUROLOGICAL: Cranial nerves grossly intact; no facial asymmetry, power and sensation grossly intact. LYMPHATICS: No lymph nodes palpable in the axilla and neck INVESTIGATIONS, reviewed in the clinical context: White count 12.3 hemoglobin 7.9 platelets 223 potassium 4.2 creatinine 1.18 Recent investigations October 03: Creatinine 0.91 2-D echocardiogram: EF 30-35%. Multiple wall motion akinetic. Moderate aortic regurgitation, severe aortic stenosis, moderate mitral regurgitation, moderate pulmonary hypertension Previous labs: Hemoglobin 11.7 on April 2020 Assessment and plan: -Dehydration with some increase in creatinine. Gentle hydration -Gastric erosions per recent EGD PPI. -COPD in a current smoker DuoNeb 3 times a day, Pulmicort 0.5 mg twice a day -Chronic congestive heart failure exacerbation from systolic dysfunction EF 30- 35%: Lasix 40 mg daily. Aldactone 25 mg a day -Severe aortic stenosis and moderate aortic regurgitation Follow clinically -Moderate mitral regurgitation Follow clinically -Moderate secondary pulmonary hypertension secondary to CHF and COPD -Chronic nicotine dependence patient cigarette smoker Nicotine patch -Essential hypertension -Hyperlipidemia Lipitor 80 mg daily at bedtime -Coronary artery disease with a bypass in 2002 and stent Lipitor, aspirin . 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 Alex Gross - outpatient -Primary osteoarthritis Tylenol when necessary -AICD Home medications resumed. Hold Lasix for now. Gentle hydration. Care was discussed with the patient. Fall precautions. Follow BMP. Subcu Lovenox. Past Medical History Past Medical History: Coronary Artery Disease (CAD), CVA/TIA, GERD/Reflux, Hyperlipidemia, Hypertension, Myocardial Infarction ([place]), Osteoarthritis (OA), Vascular Disorder Additional Past Medical History / Comment(s): 1998 CVA with no residual, 02/2020 TIA, caratid stenosis with L caratid endartectomy, pt states she has had irregular heart beat in past but cannot recall type, vertigo, balance issues, back pain/disc problems, benign colon polyp Last Myocardial Infarction Date:: 2000 History of Any Multi-Drug Resistant Organisms: None Reported Past Surgical History: AICD, Appendectomy, Bowel Resection, Cholecystectomy, Coronary Bypass/CABG, Heart Catheterization With Stent, Hernia Repair, Orthopedic Surgery Additional Past Surgical History / Comment(s): Arch studies, 2001 PCI with stents, 2002 CABG-3 vessel, 2002 AICD, AICD gen changes, DFTs, 2002 L carotid endartectomy, bowel resection for benign flat polyp, abdominal hernia repair, L hip fracture with surgery, L arm benign lesion removed, colonoscopies/polyps Past Anesthesia/Blood Transfusion Reactions: No Reported Reaction, Motion Sickness Date of Last Stent Placement:: 2000 Type of Cardiac Device: AICD Device Placement Date:: 2002- Past Psychological History: Anxiety Smoking Status: Current every day smoker Past Alcohol Use History: None Reported Past Drug Use History: None Reported - Past Family History Sister(s) Family Medical History: Cancer Additional Family Medical History / Comment(s): Sister had breast/bladder cancers. Son(s) Family Medical History: Cancer Additional Family Medical History / Comment(s): pancreatic cancer Father Family Medical History: Cancer Additional Family Medical History / Comment(s): Bowel cancer. Mother Family Medical History: Cancer Additional Family Medical History / Comment(s): Mother had bowel cancer twice and 2nd time metastasized to her kidney. Medications and Allergies Home Medications Medication Instructions Recorded Confirmed Type Cholecalciferol [Vitamin D3 (25 25 mcg PO DAILY 06/06/15 10/02/21 History Mcg = 1000 Iu)] Atorvastatin [Lipitor] 80 mg PO HS 01/03/16 10/02/21 History Lisinopril [Zestril] 10 mg PO DAILY 12/29/19 10/02/21 History Cyanocobalamin (Vitamin B-12) 1,000 mcg PO DAILY 03/08/20 10/02/21 History [Vitamin B-12] Aspirin 81 mg PO DAILY #30 chewable 03/11/20 10/02/21 Rx ALPRAZolam [Xanax] 0.5 mg PO BID PRN 10/02/21 10/02/21 History Budesonide [Pulmicort] 0.5 mg INHALATION RT-BID 10/02/21 10/02/21 History Ipratropium-Albuterol Nebulize 3 ml INHALATION RT-TID 10/02/21 10/02/21 History [Duoneb 0.5 mg-3 mg/3 ml Soln] calcium polycarbophiL [Fibercon] 625 mg PO DAILY 10/02/21 10/02/21 History Furosemide [Lasix] 40 mg PO DAILY #30 tab 10/09/21 Rx Nicotine 7Mg/24Hr Patch [Habitrol] 1 patch TRANSDERM DAILY #14 patch 10/09/21 Rx Pantoprazole [Protonix] 40 mg PO AC-BID #60 tab 10/09/21 Rx Potassium Chloride ER [K-Dur 20] 20 meq PO DAILY #30 tablet 10/09/21 Rx Spironolactone [Aldactone] 25 mg PO DAILY #30 tab 10/09/21 Rx carvediloL [Coreg] 3.125 mg PO BID-W/MEALS #60 tab 10/09/21 Rx Allergies Allergy/AdvReac Type Severity Reaction Status Date / Time No Known Allergies Allergy Verified 10/21/21 12:10 Physical Exam Vitals: Vital Signs Temp Pulse Resp BP Pulse Ox 10/21/21 12:42 66 16 96/53 97 10/21/21 12:06 98.4 F 72 20 88/51 96 Intake and Output 10/20/21 10/21/21 10/21/21 22:59 06:59 14:59 Other: Weight 68.039 kg Results CBC & Chem 7: 10/21/21 12:35 10/21/21 12:35 Labs: Abnormal Lab Results - Last 24 Hours (Table) 10/21/21 10/21/21 Range/Units 12:35 12:35 RBC 3.57 L (3.80-5.40) m/uL Hgb 10.6 L (11.4-16.0) gm/dL Hct 31.7 L (34.0-46.0) % RDW 18.4 H (11.5-15.5) % Plt Count 142 L (150-450) k/uL Lymphocytes # 0.7 L (1.0-4.8) k/uL Sodium 130 L (137-145) mmol/L Chloride 93 L (98-107) mmol/L BUN 33 H (7-17) mg/dL Creatinine 3.84 H (0.52-1.04) mg/dL Glucose 108 H (74-99) mg/dL Total Bilirubin 2.3 H (0.2-1.3) mg/dL AST 52 H (14-36) U/L ALT 42 H (4-34) U/L
--- NOTE | 2021-10-21 14:42 | US ---
EXAMINATION TYPE: US kidneys/renal and bladder DATE OF EXAM: 10/21/2021 COMPARISON: CT lumbar spine CLINICAL HISTORY: britt. EC patient with abnormal labs EXAM MEASUREMENTS: Right Kidney: 10.5 x 4.8 x 4.1 cm Left Kidney: 10.5 x 5.0 x 4.5 cm Post Void Residual Volume: not assessed on EC patient being admitted Right Kidney: crescent shaped extracapsular hypoechoic area is noted mid periphery and suggests sonog raphic "sweat sign" for renal failure; prominent renal hilum is also seen. Left Kidney: superior cortical cyst is seen = 2.4 x 2.8 x 2.9cm. Bladder: wnl Bilateral Jets seen: yes IMPRESSION: Correlate for medical renal disease. Mild prominence of the right hilum most likely related to extrar enal pelvis rather than very mild hydronephrosis.
[2021-10-21] MEDS: SODIUM CHLORIDE 0.9% 1,000 ML IV SCH (15:40)
[2021-10-21] MEDS: ENOXAPARIN 30 MG/0.3 ML SYRINGE SQ SCH (16:09)
[2021-10-21] MEDS: carvediloL 3.125 MG TAB PO SCH (19:17)
[2021-10-21] MEDS: FERROUS SULFATE 325 MG TAB PO SCH (19:36)
[2021-10-21] MEDS: PANTOPRAZOLE 40 MG TABLET PO SCH (19:36)
[2021-10-21] MEDS: ATORVASTATIN 80 MG TAB PO SCH (19:36)
[2021-10-21] MEDS: IPRATROPIUM-ALBUTEROL 3 ML NEB INHALATION SCH (19:47)
[2021-10-21] MEDS: BUDESONIDE 0.5 MG/2 ML NEBU INHALATION SCH (19:47)
[2021-10-22] MEDS: LORazepam 0.5 MG TAB PO PRN ×2 (00:43→20:13)
[2021-10-22] MEDS: IPRATROPIUM-ALBUTEROL 3 ML NEB INHALATION SCH ×3 (08:05→20:45)
[2021-10-22] MEDS: BUDESONIDE 0.5 MG/2 ML NEBU INHALATION SCH ×2 (08:05→20:45)
[2021-10-22] MEDS ORDERED: NON FORMULARY DRUG (Cholecalciferol 1,000 UNIT Tab) PO SCH (09:00)
[2021-10-22] MEDS: PANTOPRAZOLE 40 MG TABLET PO SCH ×2 (09:27→16:58)
[2021-10-22] MEDS: FERROUS SULFATE 325 MG TAB PO SCH ×2 (09:27→20:11)
[2021-10-22] MEDS: SPIRONOLACTONE 25 MG TAB PO SCH (09:28)
[2021-10-22] MEDS: CHOLECALCIFEROL 25 MCG (1000 IU) TABLET PO SCH (09:28)
[2021-10-22] MEDS: carvediloL 3.125 MG TAB PO SCH ×2 (09:28→17:00)
[2021-10-22] MEDS: CYANOCOBALAMIN 500 MCG TAB PO SCH (09:28)
[2021-10-22] MEDS: ASPIRIN 81 MG PO SCH (09:28)
[2021-10-22 10:29] VITALS: BMI 25.0
[2021-10-22 10:31] LABS: BUN/Creat Ratio 12.25 Ratio (12.00-20.00)
[2021-10-22 10:32] LABS: Anion Gap 10.8 mmol/L (10.00-18.00); Blood Urea Nitrogen 27.8 mg/dL (9.0-27.0); Calcium 9.1 mg/dL (8.7-10.3); Carbon Dioxide 23.3 mmol/L (20.0-27.5); Non-African American GFR(CKD) 19.9 (60.0-200.0)
[2021-10-22] MEDS: SODIUM CHLORIDE 0.9% 1,000 ML IV SCH ×2 (11:17→19:43)
--- NOTE | 2021-10-22 12:30 | P.NPCON ---
History of Present Illness - Reason for Consult acute renal failure - History of Present Illness patient is a 81-year-old female with history of hypertension, hyperlipidemia, coronary artery disease, COPD. Patient was recently hospitalized 2 weeks ago and found to have gastric erosions on EGD. She does have underlying CHF with cardiomyopathy and ejection fraction 30-35%. Patient was admitted to the hospital this time she was noted to have abnormal renal function as outpatient. Patient denied any significant nausea vomiting or diarrhea. No significant changes in urine output Patient did admit to weakness, dizziness and lightheadedness. Patient denies use of any nonsteroidal anti-inflammatory agents. Blood pressure was low with systolic in the 70s. Currently patient is maintained on IV fluids. Serum creatinine 3.8 on admission and decreased to 2.3 today. Previous creatinine 1.1 on 10/08/2021 Review of Systems PER hpi Past Medical History Past Medical History: Coronary Artery Disease (CAD), COPD, CVA/TIA, GERD/Reflux, Hyperlipidemia, Hypertension, Myocardial Infarction ([place]), Osteoarthritis (OA), Vascular Disorder Additional Past Medical History / Comment(s): Pt recently admitted to [facility] On 10/04/21 with UTI, low hgb, had EGD which showed erosive gastritis and exacerbation COPD. Other Hx: 1998 CVA with no residual, 02/2020 TIA, caratid stenosis with L caratid endartectomy, pt states she has had irregular heart beat in past but cannot recall type, aortic stenosis/regurgitation, vertigo, balance issues, back pain/disc problems, benign colon polyp Last Myocardial Infarction Date:: 2000 History of Any Multi-Drug Resistant Organisms: None Reported Past Surgical History: AICD, Appendectomy, Bowel Resection, Cholecystectomy, Coronary Bypass/CABG, Heart Catheterization With Stent, Hernia Repair, Orthop edic Surgery Additional Past Surgical History / Comment(s): Arch studies, 2000 PCI with stents, 2002 CABG-3 vessel, 2002 AICD, AICD gen changes, DFTs, 2002 L carotid endartectomy, bowel resection for benign flat polyp, abdominal hernia repair, L hip fracture with surgery, L arm benign lesion removed, colonoscopies/polyps Past Anesthesia/Blood Transfusion Reactions: No Reported Reaction, Motion Sickness Date of Last Stent Placement:: 2000 Type of Cardiac Device: AICD Device Placement Date:: 2002- Smoking Status: Former smoker - Past Family History Sister(s) Family Medical History: Cancer Additional Family Medical History / Comment(s): Sister had breast/bladder c ancers. Son(s) Family Medical History: Cancer Additional Family Medical History / Comment(s): pancreatic cancer Father Family Medical History: Cancer Additional Family Medical History / Comment(s): Bowel cancer. Mother Family Medical History: Cancer Additional Family Medical History / Comment(s): Mother had bowel cancer twice and 2nd time metastasized to her kidney. Medications and Allergies Home Medications Medication Instructions Recorded Confirmed Type Cholecalciferol [Vitamin D3 (25 25 mcg PO DAILY 06/06/15 10/21/21 History Mcg = 1000 Iu)] Atorvastatin [Lipitor] 80 mg PO HS 01/03/16 10/21/21 History Lisinopril [Zestril] 10 mg PO DAILY 12/29/19 10/21/21 History Cyanocobalamin (Vitamin B-12) 1,000 mcg PO DAILY 03/08/20 10/21/21 History [Vitamin B-12] Aspirin 81 mg PO DAILY #30 chewable 03/11/20 10/21/21 Rx ALPRAZolam [Xanax] 0.5 mg PO BID PRN 10/02/21 10/21/21 History Budesonide [Pulmicort] 0.5 mg INHALATION RT-BID 10/02/21 10/21/21 History Ipratropium-Albuterol Nebulize 3 ml INHALATION RT-TID 10/02/21 10/21/21 History [Duoneb 0.5 mg-3 mg/3 ml Soln] calcium polycarbophiL [Fibercon] 625 mg PO DAILY 10/02/21 10/21/21 History Furosemide [Lasix] 40 mg PO DAILY #30 tab 10/09/21 10/21/21 Rx Pantoprazole [Protonix] 40 mg PO AC-BID #60 tab 10/09/21 10/21/21 Rx Potassium Chloride ER [K-Dur 20] 20 meq PO DAILY #30 tablet 10/09/21 10/21/21 Rx Spironolactone [Aldactone] 25 mg PO DAILY #30 tab 10/09/21 10/21/21 Rx carvediloL [Coreg] 3.125 mg PO BID-W/MEALS #60 tab 10/09/21 10/21/21 Rx Ferrous Sulfate [Feosol] 325 mg PO BID 10/21/21 10/21/21 History Allergies Allergy/AdvReac Type Severity Reaction Status Date / Time No Known Allergies Allergy Verified 10/21/21 13:41 Physical Exam Vitals: Vital Signs Temp Pulse Pulse Resp BP BP BP 10/22/21 08:33 72 10/22/21 08:05 98 10/22/21 05:00 98.0 F 69 18 89/48 10/21/21 21:40 95/52 10/21/21 21:00 98.3 F 71 18 84/51 10/21/21 20:00 18 10/21/21 19:58 88 10/21/21 19:47 90 10/21/21 16:52 98 F 78 17 73/45 76/45 10/21/21 15:00 76 18 118/57 10/21/21 13:10 72 16 98/56 10/21/21 12:42 66 16 96/53 Pulse Ox 10/22/21 08:33 10/22/21 08:05 10/22/21 05:00 99 10/21/21 21:40 10/21/21 21:00 98 10/21/21 20:00 10/21/21 19:58 10/21/21 19:47 97 10/21/21 16:52 97 10/21/21 15:00 97 10/21/21 13:10 93 L 10/21/21 12:42 97 Intake and Output 10/21/21 10/22/21 10/22/21 22:59 06:59 14:59 Intake Total 150 1700 Balance 150 1700 Intake: Intake, IV Titration 150 900 Amount Sodium Chloride 0.9% 1, 150 900 000 ml @ 75 mls/hr IV . 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 Acute kidney injury, Nonoliguric secondary to low blood pressure, volume depletion. Currently improving. Continue with IV fluids. Continue off of CHAKA inhibitor's and diuretics 2. Hypotension associated with hypovolemia 3. Cardiomyopathy ejection fraction 30-35% 4. Status post recent EGD and found to have gastric erosions 5. COPD 6. Aortic stenosis with moderate aortic regurgitation 7. Hypertension, blood pressure currently low Plan: continue with IV fluids Continue off of CHAKA inhibitor's and diuretics Repeat labs in a.m. next and possible discharge in a.m.
--- NOTE | 2021-10-22 13:27 | P.PN ---
Progress Note - Text Progress Note Date: 10/22/21 Chief Complaint: Worsening renal function History of presenting complaint: This is a very pleasant 81-year-old patient of Dr. Huffman. neurologist Dr. Cobb. Chronic stable medical conditions include hypertension, hyperlipidemia, herniated disc in the back, coronary artery disease with bypass. COPD Was hospitalized 2 weeks ago had EGD that shows gastric erosions. Aspirin was resumed. Also at COPD exacerbation. 2-D echo showed EF of 30-35% and patient also found to aortic stenosis aortic regurgitation. 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 Lalit Mo yesterday was started on iron supplement. Subsequently ventricular blood drawn with a family doctor. She got a message today that her kidney function had worsened she needs to come back to the ER. Patient has been feeling dizzy lightheaded. Tired. Decreased appetite. Decreased urine output. Denies any fever and chills. Patient is accompanied by her granddaughter the ER. Admitted with acute kidney injury, prerenal. Diuretics held. Started on gentle IV hydration. October 22: Getting IV fluids. Tired. Creatinine 2.3. Hold diuretics. Discussed with patient. BP on the lower side. . Active Medications Acetaminophen (Acetaminophen Tab 325 Mg Tab) 650 mg PO Q6HR PRN PRN Reason: Mild Pain or Fever > 100.5 Albuterol/Ipratropium (Ipratropium-Albuterol 3 Ml Neb) 3 ml INHALATION RT-TID [facility] Last Admin: 10/22/21 12:34 Dose: 3 ml Documented by: Aspirin (Aspirin 81 Mg) 81 mg PO DAILY [facility] Last Admin: 10/22/21 09:28 Dose: 81 mg Documented by: Atorvastatin Calcium (Atorvastatin 80 Mg Tab) 80 mg PO HS [facility] Last Admin: 10/21/21 19:36 Dose: 80 mg Documented by: Budesonide (Budesonide 0.5 Mg/2 Ml Nebu) 0.5 mg INHALATION RT-BID [facility] Last Admin: 10/22/21 08:05 Dose: 0.5 mg Documented by: Calcium Carbonate/Glycine (Calcium Carbonate 500 Mg Chewable) 1,000 mg PO Q4HR PRN PRN Reason: Dyspepsia Calcium Polycarbophil (Calcium Polycarbophil 625 Mg Tab) 625 mg PO DAILY [facility] Last Admin: 10/22/21 09:28 Dose: 625 mg Documented by: Carvedilol (Carvedilol 3.125 Mg Tab) 3.125 mg PO BID-W/MEALS [facility] Last Admin: 10/22/21 09:28 Dose: 3.125 mg Documented by: Cholecalciferol (Cholecalciferol 25 Mcg (1000 Iu) Tablet) 25 mcg PO DAILY [facility] Last Admin: 10/22/21 09:28 Dose: 25 mcg Documented by: Cyanocobalamin (Cyanocobalamin 500 Mcg Tab) 1,000 mcg PO DAILY [facility] Last Admin: 10/22/21 09:28 Dose: 1,000 mcg Documented by: Enoxaparin Sodium (Enoxaparin 30 Mg/0.3 Ml Syringe) 30 mg SQ Q24H [facility] Last Admin: 10/21/21 16:09 Dose: Not Given Documented by: Ferrous Sulfate (Ferrous Sulfate 325 Mg Tab) 325 mg PO BID [facility] Last Admin: 10/22/21 09:27 Dose: 325 mg Documented by: Sodium Chloride (Saline 0.9%) 1,000 mls @ 75 mls/hr IV .[id number] [facility] Last Admin: 10/22/21 11:17 Dose: 75 mls/hr Documented by: Lactulose (Lactulose 20 Gm/30 Ml Cup) 20 gm PO DAILY PRN PRN Reason: Constipation Lorazepam (Lorazepam 0.5 Mg Tab) 0.5 mg PO Q6HR PRN PRN Reason: Anxiety Last Admin: 10/22/21 00:43 Dose: 0.5 mg Documented by: Melatonin (Melatonin 3 Mg Tablet) 3 mg PO HS PRN PRN Reason: Insomnia Naloxone HCl (Naloxone 0.4 Mg/Ml 1 Ml Vial) 0.2 mg IV Q2M PRN PRN Reason: Opioid Reversal Naloxone HCl (Naloxone 0.4 Mg/Ml 1 Ml Vial) 0.2 mg IV Q2M PRN PRN Reason: Opioid Reversal Pantoprazole Sodium (Pantoprazole 40 Mg Tablet) 40 mg PO AC-BID [facility] Last Admin: 10/22/21 09:27 Dose: 40 mg Documented by: Prochlorperazine Maleate (Prochlorperazine 5 Mg Tab) 5 mg PO Q8HR PRN PRN Reason: Nausea And Vomiting Spironolactone (Spironolactone 25 Mg Tab) 25 mg PO DAILY [facility] Last Admin: 10/22/21 09:28 Dose: 25 mg Documented by: Past medical history to include: Coronary artery disease, stroke, GERD, hypertension, hyperlipidemia, back pain with herniated disc carotid bypass in 2002 AICD, anxiety. COPD. CHF EF 30-35%. Aortic stenosis/aortic regurgitation Social history: Video. Smoking since 1970 about a pack a day now down to a about 5 cigarettes a day. No alcohol Family history: Bowel cancer Physical examination: VITAL SIGNS: 98, 76, 17, 85/47, 96% room air GENERAL: Reclining in bed, awake, tired EYES: [Pupils equal. Conjunctiva pale l. HEENT: External appearance of nose and ears normal, oral cavity grossly normal. NECK: JVD not raised; masses not palpable. HEART: First and second heart sounds are normal; no edema. LUNGS: Respiratory rate normal; decreased breath sounds. ABDOMEN: Soft, nontender, liver spleen not palpable, no masses palpable. PSYCH: Alert and oriented x3; mood and affect normal. MUSCULOSKELETAL:No Clubbing/cyanosis;muscles-grossly intact. Evidence of OA INVESTIGATIONS, reviewed in the clinical context: October 22: Potassium 5 sodium 137 creatinine 2.3 BUN 27.8 Admission labs: White count 6.1 hemoglobin 10.6 platelets 142 sodium 1:30 potassium 5 BUN 33 creatinine 3.84 bilirubin 2.3 Recent investigations October 03: Creatinine 0.91 2-D echocardiogram: EF 30-35%. Multiple wall motion akinetic. Moderate aortic regurgitation, severe aortic stenosis, moderate mitral regurgitation, moderate pulmonary hypertension Previous labs: Hemoglobin 11.7 on April 2020 Assessment and plan: -Acute kidney injury, prerenal from diuretics Continue gentle hydration. Hold diuretics today. -Hyponatremia, with volume loss Saline -Gastric erosions per recent EGD PPI. -COPD in a current smoker DuoNeb 3 times a day, Pulmicort 0.5 mg twice a day -Chronic congestive heart failure exacerbation from systolic dysfunction EF 30- 35%: Lasix 40 mg daily held. Aldactone 25 mg a day: -Severe aortic stenosis and moderate aortic regurgitation Follow clinically -Moderate mitral regurgitation Follow clinically -Moderate secondary pulmonary hypertension secondary to CHF and COPD -Chronic nicotine dependence patient cigarette smoker Nicotine patch -Hypotension from hypovolemia: Diagnosis IV fluids -Hyperlipidemia Lipitor 80 mg daily at bedtime -Coronary artery disease with a bypass in 2002 and stent Lipitor, aspirin . 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 Alex Gross - outpatient -Primary osteoarthritis Tylenol when necessary -AICD Continue with gentle hydration.. Continue to hold Lasix. Discussed with patient. Follow labs. Up in chair as tolerated.
[2021-10-22] MEDS: ENOXAPARIN 30 MG/0.3 ML SYRINGE SQ SCH (16:59)
[2021-10-22] MEDS: ATORVASTATIN 80 MG TAB PO SCH (20:11)
[2021-10-23] MEDS: SODIUM CHLORIDE 0.9% 1,000 ML IV SCH (07:24)
[2021-10-23] MEDS: PANTOPRAZOLE 40 MG TABLET PO SCH ×2 (07:36→18:33)
[2021-10-23] MEDS: carvediloL 3.125 MG TAB PO SCH ×2 (07:36→18:32)
[2021-10-23] MEDS: CYANOCOBALAMIN 500 MCG TAB PO SCH (08:44)
[2021-10-23] MEDS: ASPIRIN 81 MG PO SCH (08:44)
[2021-10-23] MEDS: FERROUS SULFATE 325 MG TAB PO SCH ×2 (08:44→20:15)
[2021-10-23] MEDS: CHOLECALCIFEROL 25 MCG (1000 IU) TABLET PO SCH (08:44)
[2021-10-23] MEDS: IPRATROPIUM-ALBUTEROL 3 ML NEB INHALATION SCH ×3 (08:49→19:04)
[2021-10-23] MEDS: BUDESONIDE 0.5 MG/2 ML NEBU INHALATION SCH ×2 (08:49→19:04)
[2021-10-23 10:46] LABS: African American GFR (CKD) 54 (>60 ml/min/1.73 sqM); Anion Gap 5 mmol/L; Blood Urea Nitrogen 18 mg/dL (7-17); Calcium 8.9 mg/dL (8.4-10.2); Carbon Dioxide 25 mmol/L (22-30); Chloride 106 mmol/L (98-107); Glucose 99 mg/dL (74-99); Non-African American GFR(CKD) 47 (>60 ml/min/1.73 sqM); Sodium 136 mmol/L (137-145)
[2021-10-23] MEDS ORDERED: FUROSEMIDE 40 MG TAB PO SCH (11:00)
[2021-10-23] MEDS: SPIRONOLACTONE 25 MG TAB PO SCH (11:46)
--- NOTE | 2021-10-23 13:28 | P.PN ---
Progress Note - Text Progress Note Date: 10/23/21 Chief Complaint: Worsening renal function History of presenting complaint: This is a very pleasant 81-year-old patient of Dr. Huffman. neurologist Dr. Cobb. Chronic stable medical conditions include hypertension, hyperlipidemia, herniated disc in the back, coronary artery disease with bypass. COPD Was hospitalized 2 weeks ago had EGD that shows gastric erosions. Aspirin was resumed. Also at COPD exacerbation. 2-D echo showed EF of 30-35% and patient also found to aortic stenosis aortic regurgitation. Patient had gone to see her [employer] administrator Dr. Lalit Mo yesterday was started on iron supplement. Subsequently ventricular blood drawn with a family doctor. She got a message today that her kidney function had worsened she needs to come back to the ER. Patient has been feeling dizzy lightheaded. Tired. Decreased appetite. Decreased urine output. Denies any fever and chills. Patient is accompanied by her granddaughter the ER. Admitted with acute kidney injury, prerenal. Diuretics held. Started on gentle IV hydration. October 22: Getting IV fluids. Tired. Creatinine 2.3. Hold diuretics. Discussed with patient. BP on the lower side. October 23: Creatinine coming down to 1.3. We'll start patient back on Lasix 40 mg. DC IV fluids. Increase activity today. Repeat labs tomorrow. Follow blood pressure. . Active Medications Acetaminophen (Acetaminophen Tab 325 Mg Tab) 650 mg PO Q6HR PRN PRN Reason: Mild Pain or Fever > 100.5 Albuterol/Ipratropium (Ipratropium-Albuterol 3 Ml Neb) 3 ml INHALATION RT-TID [facility] Last Admin: 10/23/21 12:03 Dose: 3 ml Documented by: Aspirin (Aspirin 81 Mg) 81 mg PO DAILY [facility] Last Admin: 10/23/21 08:44 Dose: 81 mg Documented by: Atorvastatin Calcium (Atorvastatin 80 Mg Tab) 80 mg PO HS [facility] Last Admin: 10/22/21 20:11 Dose: 80 mg Documented by: Budesonide (Budesonide 0.5 Mg/2 Ml Nebu) 0.5 mg INHALATION RT-BID [facility] Last Admin: 10/23/21 08:49 Dose: 0.5 mg Documented by: Calcium Carbonate/Glycine (Calcium Carbonate 500 Mg Chewable) 1,000 mg PO Q4HR PRN PRN Reason: Dyspepsia Calcium Polycarbophil (Calcium Polycarbophil 625 Mg Tab) 625 mg PO DAILY [facility] Last Admin: 10/23/21 08:44 Dose: 625 mg Documented by: Carvedilol (Carvedilol 3.125 Mg Tab) 3.125 mg PO BID-W/MEALS [facility] Last Admin: 10/23/21 07:36 Dose: 3.125 mg Documented by: Cholecalciferol (Cholecalciferol 25 Mcg (1000 Iu) Tablet) 25 mcg PO DAILY [facility] Last Admin: 10/23/21 08:44 Dose: 25 mcg Documented by: Cyanocobalamin (Cyanocobalamin 500 Mcg Tab) 1,000 mcg PO DAILY [facility] Last Admin: 10/23/21 08:44 Dose: 1,000 mcg Documented by: Enoxaparin Sodium (Enoxaparin 30 Mg/0.3 Ml Syringe) 30 mg SQ Q24H [facility] Last Admin: 10/22/21 16:59 Dose: 30 mg Documented by: Ferrous Sulfate (Ferrous Sulfate 325 Mg Tab) 325 mg PO BID [facility] Last Admin: 10/23/21 08:44 Dose: 325 mg Documented by: Furosemide (Furosemide 40 Mg Tab) 40 mg PO DAILY [facility] Last Admin: 10/23/21 11:45 Dose: 40 mg Documented by: Lactulose (Lactulose 20 Gm/30 Ml Cup) 20 gm PO DAILY PRN PRN Reason: Constipation Lorazepam (Lorazepam 0.5 Mg Tab) 0.5 mg PO Q6HR PRN PRN Reason: Anxiety Last Admin: 10/22/21 20:13 Dose: 0.5 mg Documented by: Melatonin (Melatonin 3 Mg Tablet) 3 mg PO HS PRN PRN Reason: Insomnia Last Admin: 10/22/21 20:40 Dose: 3 mg Documented by: Naloxone HCl (Naloxone 0.4 Mg/Ml 1 Ml Vial) 0.2 mg IV Q2M PRN PRN Reason: Opioid Reversal Naloxone HCl (Naloxone 0.4 Mg/Ml 1 Ml Vial) 0.2 mg IV Q2M PRN PRN Reason: Opioid Reversal Pantoprazole Sodium (Pantoprazole 40 Mg Tablet) 40 mg PO AC-BID [facility] Last Admin: 10/23/21 07:36 Dose: 40 mg Documented by: Prochlorperazine Maleate (Prochlorperazine 5 Mg Tab) 5 mg PO Q8HR PRN PRN Reason: Nausea And Vomiting Spironolactone (Spironolactone 25 Mg Tab) 25 mg PO DAILY [facility] Last Admin: 10/23/21 11:46 Dose: Not Given Documented by: Past medical history to include: Coronary artery disease, stroke, GERD, hypertension, hyperlipidemia, back pain with herniated disc carotid bypass in 2002 AICD, anxiety. COPD. CHF EF 30-35%. Aortic stenosis/aortic regurgitation Social history: Video. Smoking since 1970 about a pack a day now down to a about 5 cigarettes a day. No alcohol Family history: Bowel cancer Physical examination: VITAL SIGNS: 98.2, 78, 18, 91/52, 97% room air GENERAL: Reclining in bed, awake, tired EYES: [Pupils equal. Conjunctiva pale l. HEENT: External appearance of nose and ears normal, oral cavity grossly normal. NECK: JVD not raised; masses not palpable. HEART: First and second heart sounds are normal; no edema. LUNGS: Respiratory rate normal; decreased breath sounds. ABDOMEN: Soft, nontender, liver spleen not palpable, no masses palpable. PSYCH: Alert and oriented x3; mood and affect normal. MUSCULOSKELETAL:No Clubbing/cyanosis;muscles-grossly intact. Evidence of OA INVESTIGATIONS, reviewed in the clinical context: October 23: Potassium 5 BUN 18 creatinine 1.12 October 22: Potassium 5 sodium 137 creatinine 2.3 BUN 27.8 Admission labs: White count 6.1 hemoglobin 10.6 platelets 142 sodium 1:30 potassium 5 BUN 33 creatinine 3.84 bilirubin 2.3 Recent investigations October 03: Creatinine 0.91 2-D echocardiogram: EF 30-35%. Multiple wall motion akinetic. Moderate aortic regurgitation, severe aortic stenosis, moderate mitral regurgitation, moderate pulmonary hypertension Previous labs: Hemoglobin 11.7 on April 2020 Assessment and plan: -Acute kidney injury, prerenal from diuretics: Improving DC IV fluids today. -Hyponatremia, with volume loss: Better Saline -Gastric erosions per recent EGD PPI. -COPD in a current smoker DuoNeb 3 times a day, Pulmicort 0.5 mg twice a day -Chronic congestive heart failure exacerbation from systolic dysfunction EF 30- 35%: Lasix 40 mg given today. Aldactone 25 mg a day: -Severe aortic stenosis and moderate aortic regurgitation Follow clinically -Moderate mitral regurgitation Follow clinically -Moderate secondary pulmonary hypertension secondary to CHF and COPD -Chronic nicotine dependence patient cigarette smoker Nicotine patch -Hypotension from hypovolemia: Diagnosis IV fluids -Hyperlipidemia Lipitor 80 mg daily at bedtime -Coronary artery disease with a bypass in 2002 and stent Lipitor, aspirin . 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 Alex Gross - outpatient -Primary osteoarthritis Tylenol when necessary -AICD Doing better. Will DC IV fluids. Given Lasix 40 mg daily. Start for 20 mg tomorrow. Repeat labs in the morning. Follow blood pressure closely. Increase activity.
--- NOTE | 2021-10-23 14:05 | P.PN ---
Subjective Patient is seen for follow-up for acute kidney injury mostly prerenal associated with hypotension and hypovolemia. Currently patient is maintained on IV fluids. Renal function has been improving. Serum creatinine is down to 1.12 today Blood pressure however remains low with systolic in the 90s and patient is still dizzy at times. Good urine output Objective - Vital Signs Vital signs: Vital Signs Temp 98.2 F 10/23/21 08:15 Pulse 78 10/23/21 12:11 Resp 18 10/23/21 08:16 BP 91/52 10/23/21 08:48 Pulse Ox 97 10/23/21 08:48 Intake & Output 10/22/21 10/23/21 10/23/21 18:59 06:59 18:59 Intake Total 900 1400 Balance 900 1400 Weight 68.039 kg 68.039 kg Intake: Intake, IV Titration 900 900 Amount Sodium Chloride 0.9% 1, 900 900 000 ml @ 75 mls/hr IV . 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 Acute kidney injury, Nonoliguric secondary to low blood pressure, volume depletion. Currently improving. Continue with IV fluids. Continue off of CHAKA inhibitor's and diuretics 2. Hypotension associated with hypovolemia 3. Cardiomyopathy ejection fraction 30-35% 4. Status post recent EGD and found to have gastric erosions 5. COPD 6. Aortic stenosis with moderate aortic regurgitation 7. Hypertension, blood pressure currently low Plan: Continue IV fluids Can discharged tomorrow Continue to hold CHAKA inhibitor's Patient will need close follow-up post discharge to dose diuretics as she has underlying history of CHF
[2021-10-23] MEDS ORDERED: ENOXAPARIN 40 MG/0.4 ML SYRINGE SQ SCH (16:00)
[2021-10-23] MEDS: ATORVASTATIN 80 MG TAB PO SCH (20:15)
[2021-10-23] MEDS: LORazepam 0.5 MG TAB PO PRN (20:27)
[2021-10-24] MEDS: carvediloL 3.125 MG TAB PO SCH (07:23)
[2021-10-24] MEDS: PANTOPRAZOLE 40 MG TABLET PO SCH (07:23)
[2021-10-24 08:17] LABS: African American GFR (CKD) 49 (>60 ml/min/1.73 sqM); Anion Gap 7 mmol/L; Blood Urea Nitrogen 17 mg/dL (7-17); Carbon Dioxide 25 mmol/L (22-30); Chloride 105 mmol/L (98-107); Glucose 97 mg/dL (74-99); Non-African American GFR(CKD) 43 (>60 ml/min/1.73 sqM); Potassium 4.5 mmol/L (3.5-5.1); Sodium 137 mmol/L (137-145)
[2021-10-24] MEDS ORDERED: FUROSEMIDE 20 MG TAB PO SCH (09:00)
[2021-10-24] MEDS: CHOLECALCIFEROL 25 MCG (1000 IU) TABLET PO SCH (09:24)
[2021-10-24] MEDS: ASPIRIN 81 MG PO SCH (09:24)
[2021-10-24] MEDS: FERROUS SULFATE 325 MG TAB PO SCH (09:24)
[2021-10-24] MEDS: CYANOCOBALAMIN 500 MCG TAB PO SCH (09:24)
[2021-10-24] MEDS: SPIRONOLACTONE 25 MG TAB PO SCH (09:24)
[2021-10-24] MEDS: BUDESONIDE 0.5 MG/2 ML NEBU INHALATION SCH (09:49)
[2021-10-24] MEDS: IPRATROPIUM-ALBUTEROL 3 ML NEB INHALATION SCH ×2 (09:49→12:14)
[2021-10-24 09:52] VITALS: PULSE 70
--- NOTE | 2021-10-24 10:55 | P.PN ---
Subjective Patient is seen for follow-up for acute kidney injury mostly prerenal associated with hypotension and hypovolemia. Status post IV fluids. Renal function has been improving. Serum creatinine is down to 1.2 today Blood pressure is improved Good urine output Today patient is Working with physical therapy. Objective - Vital Signs Vital signs: Vital Signs Temp 97.7 F 10/24/21 04:27 Pulse 70 10/24/21 10:06 Resp 18 10/24/21 04:27 BP 106/53 10/24/21 09:22 Pulse Ox 97 10/24/21 09:22 Intake & Output 10/23/21 10/24/21 10/24/21 18:59 06:59 18:59 Intake Total 700 591 Balance 700 591 Weight 68.039 kg Intake: Oral 700 591 Other: Voiding Method Toilet Toilet Toilet # Voids 3 - Exam Awake, comfortable, alert oriented 3 Starting to walk with a walker with therapy. 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 Acute kidney injury, Nonoliguric secondary to low blood pressure, volume depletion. Currently improving. Status post IV fluids Continue off of CHAKA inhibitor's and diuretics 2. Hypotension associated with hypovolemia 3. Cardiomyopathy ejection fraction 30-35% 4. Status post recent EGD and found to have gastric erosions 5. COPD 6. Aortic stenosis with moderate aortic regurgitation 7. Hypertension, blood pressure currently low Plan: Continue to hold CHAKA inhibitor's. Patient is advised to hold blood pressure medications for systolic blood pressure less than 100. Monitor blood pressure at home if patient is discharged today Resume half the dose of home dose Lasix and repeat labs in 2-3 days post discharge.
[2021-10-24 12:34] VITALS: BP 127/63; RESP 19; TEMP 97.8
--- NOTE | 2021-10-24 15:40 | P.DS ---
Providers Date of admission: 10/21/21 13:22 Expected date of discharge: 10/24/21 Attending physician: Deacon Pool Consults: 10/21/21 13:22 Consult Physician Routine Consulting Provider: Courtney Sheriff Consult Reason/Comments: DOMINIC Do you want consulting provider notified?: Yes Primary care physician: Nishant [facility] Course: Chief Complaint: Worsening renal function History of presenting complaint: This is a very pleasant 81-year-old patient of Dr. Huffman. neurologist Dr. Cobb. Chronic stable medical conditions include hypertension, hyperlipidemia, herniated disc in the back, coronary artery disease with bypass. COPD Was hospitalized 2 weeks ago had EGD that shows gastric erosions. Aspirin was resumed. Also at COPD exacerbation. 2-D echo showed EF of 30-35% and patient also found to aortic stenosis aortic regurgitation. Patient had gone to see her food service aide Dr. Lalit Mo yesterday was started on iron supplement. Subsequently ventricular blood drawn with a family doctor. She got a message today that her kidney function had worsened she needs to come back to the ER. Patient has been feeling dizzy lightheaded. Tired. Decreased appetite. Decreased urine output. Denies any fever and chills. Patient is accompanied by her granddaughter the ER. Admitted with acute kidney injury, prerenal. Diuretics held. Started on gentle IV hydration. Creatinine gradually came down. Appetite improved. Today: Discussed with the patient. Dose of Lasix cutback to 20 mg. Potassium discontinued. Follow-up outpatient lab. Questions answered Discussion and discharge planning more than 35 minutes Past medical history to include: Coronary artery disease, stroke, GERD, hypertension, hyperlipidemia, back pain with herniated disc carotid bypass in 2002 AICD, anxiety. COPD. CHF EF 30-35%. Aortic stenosis/aortic regurgitation Social history: Video. Smoking since 1970 about a pack a day now down to a about 5 cigarettes a day. No alcohol Family history: Bowel cancer Physical examination: VITAL SIGNS: 97.8, 70, 19, 127/63, 99% room air GENERAL: Up in chair, awake, comfortable EYES: [Pupils equal. Conjunctiva pale l. HEENT: External appearance of nose and ears normal, oral cavity grossly normal. NECK: JVD not raised; masses not palpable. HEART: First and second heart sounds are normal; no edema. LUNGS: Respiratory rate normal; decreased breath sounds. ABDOMEN: Soft, nontender, liver spleen not palpable, no masses palpable. PSYCH: Alert and oriented x3; mood and affect normal. MUSCULOSKELETAL:No Clubbing/cyanosis;muscles-grossly intact. Evidence of OA INVESTIGATIONS, reviewed in the clinical context: October 24: Potassium 4.5 creatinine 1.21 Admission labs: White count 6.1 hemoglobin 10.6 platelets 142 sodium 1:30 potassium 5 BUN 33 creatinine 3.84 bilirubin 2.3 Recent investigations October 03: Creatinine 0.91 2-D echocardiogram: EF 30-35%. Multiple wall motion akinetic. Moderate aortic regurgitation, severe aortic stenosis, moderate mitral regurgitation, moderate pulmonary hypertension Previous labs: Hemoglobin 11.7 on April 2020 Assessment and plan: -Acute kidney injury, prerenal from diuretics: Better -Hyponatremia, with volume loss: Better Saline -Gastric erosions per recent EGD PPI. -COPD in a current smoker DuoNeb 3 times a day, Pulmicort 0.5 mg twice a day -Chronic congestive heart failure exacerbation from systolic dysfunction EF 30- 35%: Lasix 20 mg daily. Aldactone 25 mg a day: -Severe aortic stenosis and moderate aortic regurgitation Follow with cardiology outpatient -Moderate mitral regurgitation Follow clinically -Moderate secondary pulmonary hypertension secondary to CHF and COPD -Chronic nicotine dependence patient cigarette smoker Nicotine patch -Hypotension from hypovolemia: Better IV fluids -Hyperlipidemia Lipitor 80 mg daily at bedtime -Coronary artery disease with a bypass in 2002 and stent Lipitor, aspirin . 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 Alex Gross - outpatient -Primary osteoarthritis Tylenol when necessary -AICD Disposition: Home Plan - Discharge Summary Discharge Rx Participant: No New Discharge Prescriptions: Continue Cholecalciferol [Vitamin D3 (25 Mcg = 1000 Iu)] 25 mcg PO DAILY Atorvastatin [Lipitor] 80 mg PO HS Cyanocobalamin (Vitamin B-12) [Vitamin B-12] 1,000 mcg PO DAILY Aspirin 81 mg PO DAILY #30 chewable calcium polycarbophiL [Fibercon] 625 mg PO DAILY Ipratropium-Albuterol Nebulize [Duoneb 0.5 mg-3 mg/3 ml Soln] 3 ml INHALATION RT-TID Budesonide [Pulmicort] 0.5 mg INHALATION RT-BID Spironolactone [Aldactone] 25 mg PO DAILY #30 tab Pantoprazole [Protonix] 40 mg PO AC-BID #60 tab Ferrous Sulfate [Iron (65 MG Elemental)] 325 mg PO BID ALPRAZolam [Xanax] 0.5 mg PO BID PRN PRN Reason: Anxiety carvediloL [Coreg] 3.125 mg PO BID-W/MEALS #60 tab Changed Furosemide [Lasix] 20 mg PO DAILY #30 tab Lisinopril [Zestril] 5 mg PO DAILY #0 Discontinued Potassium Chloride ER [K-Dur 20] 20 meq PO DAILY #30 tablet Discharge Medication List Cholecalciferol [Vitamin D3 (25 Mcg = 1000 Iu)] 25 mcg PO DAILY 06/06/15 [History] Atorvastatin [Lipitor] 80 mg PO HS 01/03/16 [History] Cyanocobalamin (Vitamin B-12) [Vitamin B-12] 1,000 mcg PO DAILY 03/08/20 [History] Aspirin 81 mg PO DAILY #30 chewable 03/11/20 [Rx] ALPRAZolam [Xanax] 0.5 mg PO BID PRN 10/02/21 [History] Budesonide [Pulmicort] 0.5 mg INHALATION RT-BID 10/02/21 [History] Ipratropium-Albuterol Nebulize [Duoneb 0.5 mg-3 mg/3 ml Soln] 3 ml INHALATION RT-TID 10/02/21 [History] calcium polycarbophiL [Fibercon] 625 mg PO DAILY 10/02/21 [History] Pantoprazole [Protonix] 40 mg PO AC-BID #60 tab 10/09/21 [Rx] Spironolactone [Aldactone] 25 mg PO DAILY #30 tab 10/09/21 [Rx] carvediloL [Coreg] 3.125 mg PO BID-W/MEALS #60 tab 10/09/21 [Rx] Ferrous Sulfate [Iron (65 MG Elemental)] 325 mg PO BID 10/21/21 [History] Furosemide [Lasix] 20 mg PO DAILY #30 tab 10/24/21 [Rx] Lisinopril [Zestril] 5 mg PO DAILY #0 10/24/21 [Rx] Follow up Appointment(s)/Referral(s): Nishant Huffman DO [Primary Care Provider] - 1-2 days (The office will call you with an appointment time and date.) Michael Mo MD [STAFF PHYSICIAN] - 10/31/21 1:00 pm Patient Instructions/Handouts: Acute Kidney Injury (DC) Activity/Diet/Wound Care/Special Instructions: no new prescriptions . only dosages and timing are changed
== END 2021-10-24 13:40 | disposition home or self-care (01) | DRG 682 ==
LOC: EC 11:55 → 5NMEDONC 13:22
PROVIDERS: ADMIT Hospitalist; ATTEND Hospitalist
DX: N17.9 Acute kidney failure, unspecified (principal); I50.33 Acute on chronic diastolic (congestive) heart failure; E87.1 Hypo-osmolality and hyponatremia; I42.9 Cardiomyopathy, unspecified; J44.1 Chronic obstructive pulmonary disease with (acute) exacerbation; E78.5 Hyperlipidemia, unspecified; E86.0 Dehydration; E86.1 Hypovolemia; F17.210 Nicotine dependence, cigarettes, uncomplicated; F41.8 Other specified anxiety disorders; G47.00 Insomnia, unspecified; I08.0 Rheumatic disorders of both mitral and aortic valves; I25.10 Atherosclerotic heart disease of native coronary artery without angina pectoris; I25.2 Old myocardial infarction; I11.0 Hypertensive heart disease with heart failure; I27.29 Other secondary pulmonary hypertension; I95.89 Other hypotension; K25.9 Gastric ulcer, unspecified as acute or chronic, without hemorrhage or perforation; K59.00 Constipation, unspecified; M19.91 Primary osteoarthritis, unspecified site; T50.2X5A Adverse effect of carbonic-anhydrase inhibitors, benzothiadiazides and other diuretics, initial encounter; Z79.51 Long term (current) use of inhaled steroids; Z79.82 Long term (current) use of aspirin; Z79.899 Other long term (current) drug therapy; Z80.0 Family history of malignant neoplasm of digestive organs; Z86.73 Personal history of transient ischemic attack (TIA), and cerebral infarction without residual deficits; Z95.1 Presence of aortocoronary bypass graft; Z95.5 Presence of coronary angioplasty implant and graft
CPT/HCPCS: 36415; 71046; 76770; 80048; 80053; 81001; 83605; 83735; 83880; 85025; 85610; 85730; 93005; 94640; 96360; 96361; 96372; 99285

== ENCOUNTER 2021-12-09 11:00 | Day surgery (SDC) | payer MEDICARE, BC ==
[2021-12-08 12:15] VITALS: BMI 25.7
[2021-12-09 11:23] VITALS: TEMP 98.2
[2021-12-09] MEDS ORDERED: SODIUM CHLORIDE 0.9% 500 ML 500 ML IV ONE (11:23)
[2021-12-09] MEDS ORDERED: fentaNYL (PF) 50 MCG/ML 2 ML AMP ONE (11:49)
[2021-12-09] MEDS ORDERED: BENZOCAINE SPRAY 1 CAN MUCOUS MEM ONE (12:00)
[2021-12-09] MEDS ORDERED: fentaNYL (PF) 50 MCG/ML 2 ML AMP IV ONE (12:02)
[2021-12-09] MEDS ORDERED: MIDAZOLAM 2 MG/2 ML VIAL IV ONE (12:02)
[2021-12-09 12:09] VITALS: RESP 33
[2021-12-09 14:12] VITALS: BP 140/70; PULSE 65
--- NOTE | 2021-12-09 14:17 | ECHOT ---
TRANSESOPHAGEAL ECHOCARDIOGRAM INDICATION: Aortic stenosis. PROCEDURE NOTE: After obtaining informed consent, transesophageal echocardiogram was performed in left lateral position using an Omniplane probe. Local and IV sedation were obtained using Xylocaine spray, Versed and fentanyl. Moderate conscious sedation time was about 10 minutes. FINDINGS: 1. Aortic valve: Aortic valve is a 3-leaflet valve, appears heavily calcified with severe restriction in leaflet mobility, with a planimetry valve area of about 0.5 cm2. Severe aortic regurgitation noted. 2. There is moderate mitral regurgitation noted. 3. Aortic root appears aneurysmally dilated, measuring about 4.7 cm at the level of the ascending aorta. 4. There is mild tricuspid regurgitation noted. 5. Interatrial septum: There is no evidence of [id number] shunt by color-flow Doppler or [id number]-af-nvzq shunt by agitated saline contrast study. 6. Left atrium appears enlarged. Right atrium and right ventricle seen within normal limits. 7. AICD leads are noted in the right side of the heart. 8. Left ventricle appears dilated with severe LV dysfunction with an ejection fraction of 30% to 35%. The apex appears hypokinetic. CONCLUSIONS: 1. Severe aortic stenosis. 2. Ischemic cardiomyopathy with severe LV dysfunction. 3. Severe aortic regurgitation. PLAN: Patient will undergo cardiac catheterization and will be referred for aortic valve replacement. MMODL / IJN: [id number] /
== END 2021-12-09 13:55 | disposition home or self-care (01) ==
LOC: CATHCVL 11:00
PROVIDERS: ATTEND Internal Medicine Cardiovascular Disease
DX: I35.1 Nonrheumatic aortic (valve) insufficiency (principal); I25.5 Ischemic cardiomyopathy; I50.1 Left ventricular failure, unspecified
CPT/HCPCS: 93312; 93325; J2250; J3010

== ENCOUNTER 2022-01-06 06:05 | Day surgery (SDC) | payer MEDICARE, BC ==
[~2022-01-06 06:05] MED LIST changes: +ALPRAZolam 0.25 MG TAB PO PRN; +ALPRAZolam 0.5 MG TAB PO PRN; -ASPIRIN 325 MG TAB PO STA; -IOPAMIDOL-250 100ML BTL INTRAARTER ONE; -LIDOCAINE 1% INJ 10MG/ML (20 ML MDV) SQ ONE; -MIDAZOLAM 2 MG/2 ML VIAL IV ONE; +NITROGLYCERIN SL TABS 0.4 MG TAB SUBLINGUAL PRN; -SODIUM CHLORIDE 0.9% 1,000 ML in EMPTY BAG 1 BAG IV ONE; +SODIUM CHLORIDE 0.9% 1,000 ML in EMPTY BAG 1 BAG IV SCH
[2022-01-06 06:33] VITALS: RESP 18; TEMP 97.9
[2022-01-06] MEDS ORDERED: ASPIRIN 325 MG TAB PO ONE (07:00)
[2022-01-06] MEDS ORDERED: VERAPAMIL 2.5 MG/ML 2 ML AMP ONE (07:27)
[2022-01-06] MEDS ORDERED: fentaNYL (PF) 50 MCG/ML 2 ML AMP ONE (07:28)
[2022-01-06] MEDS ORDERED: fentaNYL (PF) 50 MCG/ML 2 ML AMP IVP ONE (07:34)
[2022-01-06] MEDS ORDERED: MIDAZOLAM 2 MG/2 ML VIAL IVP ONE (07:34)
[2022-01-06] MEDS ORDERED: LIDOCAINE 1% INJ 10MG/ML (5 ML VIAL-PF) SQ ONE (07:40)
[2022-01-06] MEDS ORDERED: HEPARIN SODIUM 1,000 UN/ML (10ML VL) ONE (07:45)
[2022-01-06] MEDS: VERAPAMIL SYRINGE (5 MG/10 ML) INTRAARTER ONE ×2 (07:45→08:15)
[2022-01-06] MEDS ORDERED: HEPARIN SODIUM 1,000 UN/ML (10ML VL) IVP ONE (07:47)
[2022-01-06] MEDS ORDERED: IOPAMIDOL-370 50ML BTL INJ ONE (08:21)
[2022-01-06] MEDS ORDERED: IOPAMIDOL-370 125ML BTL INJ ONE (08:23)
--- NOTE | 2022-01-06 09:00 | P.CARDCATH ---
Description of Procedure: PROCEDURES PERFORMED: Bilateral coronary angiography, SVG to PDA, SVG to OM1, BRUSH to LAD angiography, aortic root angiogram INDICATION: Severe , ascending aortic aneurysm, CAD with history of 3 vessel CABG approximately 20 yrs ago CONSENT:I have discussed the risks, benefits and alternative therapies for the above-mentioned procedure and for both sedation/analgesia as well as necessary blood product administration, if indicated, as they pertain to this patient. The patient has indicated understanding and acceptance of the risks and procedures discussed. PROCEDURE: After the risks, benefits and alternatives of the above mentioned procedure explained in detail with the patient, informed consent was obtained. Patient was taken to the catheterization lab and prepped and draped in usual fashion. 1% lidocaine was used to anesthetize the left radial artery. A 6- [place] sheath was placed in the left radial artery using modified Seldinger technique. Left coronary angiography was performed with a 6-[place] JL 5.0 catheter and right coronary angiography was performed with a 6-[place] JR5 catheter in various views. SVG to PDA angiography was performed with a 6Fr multipurpose A2 catheter. BRUSH to LAD angiography was performed with a 6Fr DIDI catheter. Aortic root angiography was performed with a pigtail and power inj ection in the HOOKS projection. The SVG to OM was noted to be open and therefore this was engaged with a 6Fr AL 3.0 catheter in various views. The radial sheath was removed and a TR band was placed with hemostasis achieved. The patient tolerated the procedure well. Patient was transported back to the post catheterization holding area in stable condition. Conscious Sedation: Patient was monitored under the direct supervision of vision of myself for conscious sedation using Versed and fentanyl for a total duration of 41 minutes HEMODYNAMICS: Aorta: 134/76 SELECTIVE CORONARY ARTERIOGRAPHY: LEFT MAIN: The left main is a large caliber vessel which bifurcates into the LAD and circumflex. There is mild 10% left main stenosis. LEFT ANTERIOR DESCENDING CORONARY ARTERY: LAD is a large caliber vessel which wraps around to the apex. There is a proximal LAD 90% stenosis just prior to a long stent and then there is a mid LAD 100% stenosis. The unprotected LAD system gives off a small to moderate caliber diagonal branch. There are mild left to right collaterals. LEFT CIRCUMFLEX CORONARY ARTERY: Left circumflex is a moderate caliber and gives off to OM branches. OM1 has 100% proximal stenosis and is bypassed. There is a mid circumflex 90% stenosis which leads to a small caliber OM2. RIGHT CORONARY ARTERY: The right coronary artery is a large caliber vessel which gives off a PDA and PLV branch and is the dominant vessel. There is 100% proximal stenosis. BRUSH to LAD: Widely patent SVG to OM1: Heavily calcified, mid SVG 75% stenosis and diffuse degeneration leading to a moderate caliber OM1 SVG to PDA: occluded Aortogram: Large ascending aortic root aneurysm, 1-2+ aortic insufficiency FINAL IMPRESSION: 1. [place] CAD as described above including 10% left main, 90% proximal LAD then 100% mid LAD, 90% mid circumflex, 100% OM1, 100% RCA stenosis with mild left to right collaterals 2. Patent BRUSH to LAD, SVG to OM1 with mid 75% stenosis with diffuse degeneration of the graft and SVG to PDA 100% occluded 3. Large ascending aortic aneurysm 4. 1-2+ aortic insufficiency PLAN: 1. Aggressive risk factor modification per most recent ACC/AHA guidelines. 2. Small to moderate caliber unprotected diagonal 1 with heavily calcified 90% proximal LAD and diffuse old LAD instent stenosis, diffuse degeneration of SVG to OM branch with 75% stenosis. Continue antianginals/ medical therapy unless patient having significant angina despite optimal medical therapy.
[2022-01-06 13:43] VITALS: BP 136/63; PULSE 62
== END 2022-01-06 13:41 | disposition home or self-care (01) ==
LOC: CATHCVL 06:05
PROVIDERS: ATTEND Internal Medicine
DX: I35.0 Nonrheumatic aortic (valve) stenosis (principal); Z95.1 Presence of aortocoronary bypass graft; I25.5 Ischemic cardiomyopathy; I11.0 Hypertensive heart disease with heart failure; I50.9 Heart failure, unspecified; E78.5 Hyperlipidemia, unspecified; Z20.822 Contact with and (suspected) exposure to COVID-19; I65.22 Occlusion and stenosis of left carotid artery; Z98.890 Other specified postprocedural states; Z95.810 Presence of automatic (implantable) cardiac defibrillator; E78.00 Pure hypercholesterolemia, unspecified; Z86.73 Personal history of transient ischemic attack (TIA), and cerebral infarction without residual deficits; Z82.49 Family history of ischemic heart disease and other diseases of the circulatory system; Z87.891 Personal history of nicotine dependence; Z79.82 Long term (current) use of aspirin; Z79.51 Long term (current) use of inhaled steroids; Z79.899 Other long term (current) drug therapy
CPT/HCPCS: 93455; 87635; C1769; C1894; J2250; J2001; J3010; J1644; Q9967 ×2

== ENCOUNTER → 2022-01-15 | Outpatient (CLI) | payer MEDICARE, BC ==
[~2022-01-15] MED LIST changes: -ALPRAZolam 0.25 MG TAB PO PRN; -ALPRAZolam 0.5 MG TAB PO PRN; -NITROGLYCERIN SL TABS 0.4 MG TAB SUBLINGUAL PRN; +SODIUM CHLORIDE 0.9% 1,000 ML in EMPTY BAG 1 BAG IV ONE; -SODIUM CHLORIDE 0.9% 1,000 ML in EMPTY BAG 1 BAG IV SCH
[2022-01-15 08:38] LABS: Basophils # (A) 0.2 k/uL (0-0.2); Basophils % (A) 2 %; Eosinophils # (A) 0.7 k/uL (0-0.7); Eosinophils % (A) 8 %; HCT 41.2 % (34.0-46.0); HGB 13.9 gm/dL (11.4-16.0); Lymphocytes # (A) 1.9 k/uL (1.0-4.8); Lymphocytes % (A) 22 %; MCH 32.5 pg (25.0-35.0); MCHC 33.8 g/dL (31.0-37.0); MCV 96.2 fL (80.0-100.0); Mean Platelet Volume 7.3; Monocytes # (A) 0.5 k/uL (0-1.0); Monocytes % (A) 6 %; Neutrophils # (A) 5.1 k/uL (1.3-7.7); Neutrophils % (A) 61 %; Platelet Count 194 k/uL (150-450); RBC 4.28 m/uL (3.80-5.40); RDW 15.4 % (11.5-15.5); WBC 8.4 k/uL (3.8-10.6)
[2022-01-15 08:51] LABS: ALT 13 U/L (4-34); AST 26 U/L (14-36); African American GFR (CKD) 62 (>60 ml/min/1.73 sqM); Albumin 4.5 g/dL (3.5-5.0); Albumin/Globulin Ratio 1.9; Alkaline Phosphatase 91 U/L (38-126); Anion Gap 6 mmol/L; Blood Urea Nitrogen 13 mg/dL (7-17); Calcium 10.2 mg/dL (8.4-10.2); Carbon Dioxide 34 mmol/L (22-30); Chloride 99 mmol/L (98-107); Globulin 2.4 g/dL; Glucose 97 mg/dL (74-99); Non-African American GFR(CKD) 54 (>60 ml/min/1.73 sqM); Potassium 3.5 mmol/L (3.5-5.1); Sodium 139 mmol/L (137-145); Total Bilirubin 1.7 mg/dL (0.2-1.3); Total Protein 6.9 g/dL (6.3-8.2)
[2022-01-15 08:59] LABS: Prothrombin Time 10.4 sec (9.0-12.0)
[2022-01-15 09:00] LABS: Partial Thromboplastin Time 29.3 sec (22.0-30.0)
[2022-01-15 12:05] LABS: Hepatitis A Antibody IgM Nonreactive (Nonreactive); Hepatitis B Core IgM Nonreactive (Nonreactive)
[2022-01-15 12:06] LABS: Hepatitis B Surface Antigen Nonreactive (Nonreactive); Hepatitis C IgG Antibody Nonreactive (Nonreactive)
[2022-01-15 12:27] VITALS: RESP 18
[2022-01-15 14:29] LABS: Appearance,Urine Cloudy (Clear); Bilirubin,Urine Negative (Negative); Blood,Urine Trace (Negative); Color,Urine Light Yellow; Glucose,Urine (UA) Negative (Negative); Ketones,Urine Negative (Negative); Leukocyte Esterase,Urine Small (Negative); Mucus,Urine Rare /hpf; Nitrite,Urine Negative (Negative); Protein,Urine Trace (Negative); RBC,Urine 8 /hpf (0-5); Squamous Epithelial Cell,Urine 62 /hpf (0-4); Urobilinogen,Urine <2.0 mg/dL (<2.0); WBC,Urine 5 /hpf (0-5)
[2022-01-15 15:10] VITALS: BP 135/74; PULSE 58
[2022-01-15 15:10] LABS: Specific Gravity,Urine >1.050 (1.001-1.035)
--- NOTE | 2022-01-15 15:16 | CT ---
EXAMINATION TYPE: CT TAVR Planning DATE OF EXAM: 01/15/2022 HISTORY: NONRHEUMATIC AORTIC (VALVE) INSUFFICIENCY. CT DLP: 1733.5 mGycm Automated Exposure Control for Dose Reduction was Utilized. CONTRAST: CT scan of the chest, abdomen and pelvis is performed with IV Contrast, patient injected with 125ml m L of Isovue 370. COMPARISON: CT dated 08/13/2021 TECHNIQUE: Helical imaging obtained through the chest, abdomen and pelvis during arterial phase kobi lilliana administration of radiographic contrast intravenously. FINDINGS: See report from [employer] regarding preprocedural planning CHEST: Lower Neck and Thyroid: Slight asymmetry at the level of the vocal cords, please correlate clinically . Ectatic innominate artery with atherosclerotic calcification and tortuosity of major mediastinal an d neck arteries. Dilated proximal portion of the left internal carotid artery measuring up to 15 mm. Lungs: Scattered bilateral calcified granulomas. Central Airway: No significant findings Pleura: No significant findings Pulmonary Arteries: No significant findings Heart and Pericardium: Cardiomegaly. Coronary and arterial vascular calcification. Large ascending ao rtic aneurysm measuring up to 5.8 cm. Suspected previous CABG. The aortic arch measures 4.1 cm. The d escending aorta measures 3.9 cm superiorly and 3.7 cm inferiorly. The upper abdominal aorta measures 3.8 cm. Infrarenal abdominal aortic aneurysm measuring up to 3.7 cm. Normal branching anatomy of the aortic arch. Lymph Nodes: No pathologically enlarged lymph nodes in the chest. Mediastinum & Esophagus: No significant findings ABDOMEN/PELVIS: Please note arterial phase of the imaging limits detailed evaluation of the solid abdominal organs. Liver: No significant findings Spleen: No significant findings Kidneys: Left renal cyst without suspicious feature. Adrenal Glands: No significant findings Pancreas: No significant findings Gallbladder: Previous cholecystectomy. Dilated CBD, possibly related to post cholecystectomy status. Bowel and Mesentery: Severe diverticulosis of the sigmoid colon and to a lesser extent the descending colon. Ileocolic anastomosis is seen to the left of the midline. No evidence of bowel obstruction. A nterior abdominal wall hernia containing multiple small bowel loops. Lymph Nodes: No pathologically enlarged lymph nodes. Urinary Bladder: No significant findings Pelvic Organs: Questionable 14 mm left ovarian cyst. Other: Degenerative changes mainly of the cervical and the lumbar spine. Osteopenia. Sternotomy wire sutures. Severe narrowing of the right subclavian vein with reflux of injected contrast into right ch est wall veins. Other Lines/Tubes/Devices/Hardware: Left upper chest wall dual leads pacemaker. Left proximal femoral fixation using intramedullary nail and interlocking screws. IMPRESSION: Thoracic and abdominal aortic aneurysms with other findings as detailed above.
[2022-01-15 16:24] LABS: Chol/HDL Ratio 2.35 Ratio; LDL Cholesterol,Calculated 44.4 mg/dL (0.0-131.0)
== END ==
LOC: LABWHC1 07:06
PROVIDERS: ATTEND Thoracic Surgery (Cardiothoracic Vascular Surgery)
DX: I71.4 Abdominal aortic aneurysm, without rupture (principal)
CPT/HCPCS: 83880; 80061; 80053; 80074; 84443; 83735; 85025; 85610; 85730; 81001; 83036; 71275; 74174; Q9967; 94150

== ENCOUNTER → 2022-03-02 | Outpatient (CLI) | payer MEDICARE, BC ==
[2022-03-02 15:10] LABS: INR 0.9 (<1.2); Partial Thromboplastin Time 28.1 sec (22.0-30.0); Prothrombin Time 10.4 sec (9.0-12.0)
[2022-03-02 18:44] LABS: HCT 39.1 % (37.2-46.3); HGB 13.2 g/dL (12.0-15.0); MCH 32.5 pg (27.0-32.0); MCHC 33.8 g/dL (32.0-37.0); MCV 96.3 fL (80.0-97.0); Mean Platelet Volume 10.5 fL (9.5-12.2); NRBC Per 100 WBC 0 /100 WBCS (0.0-0.0); Platelet Count 203 X 10*3/uL (140-440); RBC 4.06 X 10*6/uL (4.10-5.20); RDW 13.2 % (11.5-14.5); WBC 7.58 X 10*3/uL (4.50-10.00)
[2022-03-02 22:44] LABS: African American GFR (CKD) 62.1 (60.0-200.0); Anion Gap 9.4 mmol/L (10.00-18.00); BUN/Creat Ratio 15.1 Ratio (12.00-20.00); Blood Urea Nitrogen 15.1 mg/dL (9.0-27.0); Calcium 10.2 mg/dL (8.7-10.3); Carbon Dioxide 29.6 mmol/L (20.0-27.5); Non-African American GFR(CKD) 53.5 (60.0-200.0); Potassium 4.2 mmol/L (3.5-5.5)
== END | disposition home or self-care (01) ==
LOC: LABWHC1 14:03
PROVIDERS: ATTEND Thoracic Surgery (Cardiothoracic Vascular Surgery)
DX: Z01.812 Encounter for preprocedural laboratory examination (principal)
CPT/HCPCS: 80048; 85027; 85610; 85730

== ENCOUNTER 2022-03-04 06:01 | Inpatient (IN) | payer MEDICARE, BC ==
[~2022-03-04 06:01] MED LIST changes: +ASPIRIN 325 MG TAB PO ONE; +ATORVASTATIN 10 MG TAB PO ONE; +CLEVIDIPINE BUTYRATE 25 MG in EMPTY BAG 1 BAG IV PRN; +CLOPIDOGREL 75 MG TAB PO ONE; +ELECTROLYTE-A SOLUTION 1,000 ML with POTASSIUM CHLORIDE 100 MEQ, MAGNESIUM SULFATE 16 M... IV PRN; +INSULIN REGULAR 100 UNIT in SODIUM CHLORIDE 0.9% 100 ML IV PRN; +LACTATED RINGERS 1,000 ML IV SCH; +METOPROLOL TARTRATE 25 MG TAB PO ONE; +NITROGLYCERIN-D5W PMX 25 MG/250 ML BTL IV PRN; +PROTAMINE SULFATE 250 MG in EMPTY BAG 1 BAG IV PRN; -SODIUM CHLORIDE 0.9% 1,000 ML in EMPTY BAG 1 BAG IV ONE; +SODIUM CHLORIDE 0.9% 500 ML 500 ML INTRAARTER PRN; +TRANEXAMIC ACID 2,000 MG in SODIUM CHLORIDE 0.9% 80 ML IV PRN
[2022-03-04 06:35] LABS: Glucose,Whole Blood 104 mg/dL (70-110)
[2022-03-04] MEDS ORDERED: SODIUM CHLORIDE 0.9% 1,000 ML IV ONE (06:39)
[2022-03-04] MEDS ORDERED: CLOPIDOGREL 75 MG TAB ONE (06:48)
[2022-03-04] MEDS ORDERED: PROTAMINE SULFATE 10 MG/ML 5 ML VIAL IV ONE (08:29)
[2022-03-04] MEDS ORDERED: NEOSTIGMINE 1 MG/ML 10 ML VIAL ONE (08:29)
[2022-03-04] MEDS ORDERED: LIDOCAINE 2% INJ 20 MG/ML (2 ML VIAL) ONE (08:29)
[2022-03-04] MEDS ORDERED: HEPARIN SODIUM,PORCINE 10,000 UNIT/ML 1 ML VIAL ONE (08:29)
[2022-03-04] MEDS ORDERED: fentaNYL (PF) 50 MCG/ML 2 ML AMP ONE (08:29)
[2022-03-04] MEDS ORDERED: ceFAZolin 1,000 MG VIAL ONE (08:29)
[2022-03-04] MEDS ORDERED: ETOMIDATE 2 MG/ML 10 ML VIAL ONE (08:29)
[2022-03-04] MEDS ORDERED: SUCCINYLCHOLINE CHLORIDE 200 MG/10 ML VIAL IV ONE (08:29)
[2022-03-04] MEDS ORDERED: MIDAZOLAM 2 MG/2 ML VIAL ONE (08:29)
[2022-03-04] MEDS ORDERED: SODIUM CHLORIDE 0.9% 100 ML BAG ONE (08:29)
[2022-03-04] MEDS ORDERED: PHENYLEPHRINE-0.9% NACL SYG 1,000 MCG/10 ML SYRINGE ONE (08:29)
[2022-03-04] MEDS ORDERED: ROCURONIUM 10 MG/ML (5 ML VIAL) IV ONE (08:29)
[2022-03-04] MEDS ORDERED: GLYCOPYRROLATE 0.2 MG/ML 2 ML VIAL ONE (08:29)
[2022-03-04] MEDS ORDERED: HYDROmorphone (PF) 1 MG/ML ONE (08:29)
[2022-03-04] MEDS ORDERED: IOPAMIDOL-370 125ML BTL INJ ONE (09:50)
[2022-03-04] MEDS ORDERED: ONDANSETRON 4 MG/2 ML VIAL IVP PRN (09:58)
[2022-03-04] MEDS ORDERED: ACETAMINOPHEN TAB 325 MG TAB PO PRN (09:58)
[2022-03-04] MEDS ORDERED: ALPRAZolam 0.5 MG TAB PO PRN (09:58)
[2022-03-04] MEDS ORDERED: Magnesium Replacement Protocol 1 EACH MISC MISCELLANE PRN (09:58)
[2022-03-04] MEDS ORDERED: IPRATROPIUM-ALBUTEROL 3 ML NEB INHALATION PRN (09:58)
[2022-03-04] MEDS ORDERED: Potassium Replacement Protocol 1 EACH MISC MISCELLANE PRN (09:58)
[2022-03-04] MEDS ORDERED: LACTATED RINGERS 1,000 ML IV SCH (10:00)
--- NOTE | 2022-03-04 10:16 | P.ANPRN ---
Procedure Note - Anesthesia - ALEXIS Intraop Pre Bypass ALEXIS Intraop - Anesthesia Indication: Transcatheter aortic valve replacement Date of Procedure: 03/04/22 Pre-operative Diagnosis: Severe aortic stenosis and moderate aortic regurgitation Post-operative Diagnosis: Status post trans catheter aortic valve replacement Surgeon: Alex Gross Left Ventricle: Ejection fraction 35-40% Regional Wall Motion Abnormalities: Other (Global hypokinesis) R. Ventricle Function: Normal Aortic Valve: Severely calcified aortic valve seen. Peak gradient across the valve 49 mmHg and mean gradient 30 mmHg. Valve area 0.6 cm2 Anatomy: Trileaflet Aortic Stenosis: Severe Aortic Regurgitation: Moderate Mitral Stenosis: None Mitral Regurgitation: Mild ([id number]) Tricuspid Stenosis: None Tricuspid Regurgitation: Trace Pulmonic Regurgitation: Trace R. Atrial Dilation: No R. Atrial PFO: No L. Atrial Dilation: Yes Aortic Dissection: No Aortic Calcification: None - ALEXIS Intraop Post Bypass ALEXIS Intraop Post Bypass Procedure Performed: Transcatheter aortic valve replacement Left Ventricle: Ejection fraction 35-40% Regional Wall Motion Abnormalities: None (Global hypokinesis seen) R. Ventricle Function: Normal Aortic Valve: Prosthetic aortic valve in situ. Appears to be seated level. Trace to mild AI seen which improved after protamine. Peak gradient across the valve is 5 mmHg and mean gradient is 2 mmHg Mitral Valve: Unchanged Tricuspid: Unchanged Pulmonic: Unchanged
--- NOTE | 2022-03-04 10:16 | P.PCN ---
Date of Procedure: 03/04/22 Operative Findings: TRANSCUTANEOUS AORTIC VALVE REPLACED (TAVR) PROCEDURE PERFORMED: 1. Percutaneous Aortic Valve replacement using 23 mm Gabriel Lev valve. 2. Transesophageal echocardiography (performed by anesthesia) 3. Ultrasound guided access and repair of right femoral artery access site by Perclose closure device. 4. Placement of temporary pacemaker wire from left femoral vein 5. Aortic root angiography INDICATIONS: 1. 81 year-old with a history of severe symptomatic aortic valve stenosis. 2. The symptoms of shortness of breath she was experiencing consistent with NYHA class II PERFORMING PHYSICIANS: 1. Rupesh Cornejo DO Interventional Cardiology 2. Mark Nelson MD Interventional Cardiology. 3. Alex Gross MD, Cardiothoracic Surgeon. 4. Jelena Pride MD Proctoring Interventional cardiology SEDATION: General anesthesia provided by anesthesia, see separate note APPROACH: Right and left femoral artery via percutaneous approach PROCEDURE DESCRIPTION: The patient was discussed at valve clinic with multidisciplinary approach with cardiothoracic surgeon as well as occupational therapy manager and thought better treated with TAVR. Risks, benefits, and alternatives of the procedure had been explained to the patient who understood the risks and agreed to proceed. After consents were obtained, patient was brought to the transcatheter aortic valve implantation room in the cardiac director of cath lab and general anesthesia was provided by the anesthesiologist (see separate report). Pacing threshholds were checked and deemed appropriate. Next the right femoral artery waw accessed using a modified Seldinger technique, ultrasound guidance and micropuncture technique. A 6 Citizen [place] Rabi sheath was placed in the right femoral artery. Next, a 6-[place]izen [place] pigtail catheter was advanced into the aorta and positioned in the aortic root, aortic root angiography was performed to determine optimal deployment angle. Subsequently I accessed the left common femoral vein using micropuncture technique under ultrasound guidance, the micropuncture wire passed easily then I placed 23 cm sheath at the left common femoral vein. Subsequently I advanced a balloon tip pacer wire under fluoroscopy guidance to the right ventricle. It was positioned under fluoroscopy guidance in the apex of the right ventricle. Subsequently it was connected to the proximal and this was checked to be appropriately working. The right femoral artery was accessed using modified Seldinger technique, micropuncture technique and under direct ultrasound guidance. Femoral angiogram was done showing access in the common femoral artery and a 6Fr sheath was placed. Next preclose technique was performed using a two Perclose. Next a 0.035 [place] wire was placed in the Aorta via a pigtail catheter. Over that was sharp I advanced a 14-Citizen [place] E sheath. Next a 6F- AL1 catheter was advanced over a wire to the aortic root. A straight wire was advanced through the catheter and used to cross the severely stenotic valve. Attempted crossing the aortic valve using AL-1 was unsuccessful but was successful using an AL2. The AL2 was then exchanged for a 6Fr pigtail catheter and pressure measurements were obtained. The mean gradient was about 43 mmHg. The 0.035 [place] wire was then positioned in the apex. Next a 23 mm Gabriel valve was advanced. The valve was then positioned across the aortic valve and confirmed with aortic root angiography. The valve was then deployed in proper position using slow deployment and with rapid pacing in conjuncture with aortic root angiography and ALEXIS. The delivery system was withdrawn back into the arch and an aortic root in jection in conjunction with ALEXIS demonstrated a satisfactory result. There was minimal para valvular leak. There was no evidence of any other significant abnormalities. The preclose Perclose was then deployed in the right femoral artery and hemostasis was achieved with 2 Perclose and one 8-Citizen [place] Angio-Seal. Femoral angiogram was performed that showed no contrast leak. The patient was then transported to the ICU in hemodynamically stable condition, requiring no pressor support. COMPLICATIONS: None RECOMMENDATIONS: The patient will be monitored in the ICU for hemodynamic and electrical sta bility. Patient will be on aspirin and Plavix.
[2022-03-04 10:49] LABS: Glucose,Whole Blood 115 mg/dL (70-110)
[2022-03-04] MEDS ORDERED: lisinopriL 5 MG TAB PO SCH (12:00)
--- NOTE | 2022-03-04 12:16 | P.CNPUL ---
History of Present Illness Consult date: 03/04/22 Requesting physician: Mark Nelson Reason for consult: other (status post T aVR) Chief complaint: Symptomatic aortic stenosis History of present illness: This is a 72-year-old female with history of multiple medical problems including coronary artery disease, previous PCI and CABG over 15 years ago. History of LV dysfunction. And history of aortic stenosis documented on previous echocardiogram going back as far as 2019. chronic dyspnea on exertion, history of cardiac catheterization done on 01/06/22 patient was found to have small to moderate caliber unprotected diagonal 1, heavily calcified 90% proximal LAD and diffuse old LAD stenosis. She was also found to have diffuse degenerative SVG to obtuse marginal branch with 75% stenosis, and the patient was advised to continue aggressive risk factor modification. Patient was seen recently by Dr. Tesfaye, and he recommended transcutaneous aortic valve replacement/TAVR. Patient underwent uneventful procedure today, admitted to the ICU postoperatively, and I was asked to see her on consultation. During my evaluation, patient was noted to be on a Ventimask, doing well, relatively asymptomatic. Hemodynamically stable. O2 saturation was 98% Review of Systems CONSTITUTIONAL: Negative CARDIOVASCULAR: As noted in HPI RESPIRATORY: Dyspnea on exertion GASTROINTESTINAL: Negative MUSCULOSKELETAL: Negative NEUROLOGIC: Negative ENDOCRINE: Negative. GENITOURINARY: Negative HEMATOLOGIC: Negative Past Medical History Past Medical History: Coronary Artery Disease (CAD), COPD, CVA/TIA, GERD/Reflux, Hyperlipidemia, Hypertension, Myocardial Infarction (AR), Osteoarthritis (OA), Vascular Disorder Additional Past Medical History / Comment(s): hx. UTI, low hgb, had EGD which showed erosive gastritis and exacerbation COPD. Other Hx: 1998 CVA with no residual, 02/2020 TIA, carotid stenosis with L carotid endartectomy, pt states she has had irregular heart beat in past but cannot recall type, aortic stenosis/regurgitation, vertigo, balance issues-uses walker prn, back pain/disc problems, benign colon polyp,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, recently had 3 teeth pulled on 12/30/21-on A/B currently Last Myocardial Infarction Date:: 2000 History of Any Multi-Drug Resistant Organisms: None Reported Past Surgical History: AICD, Appendectomy, Bowel Resection, Cholecystectomy, Coronary Bypass/CABG, Heart Catheterization With Stent, Hernia Repair, Orthopedic Surgery Additional Past Surgical History / Comment(s): Arch studies, 2000 PCI with stents, 2002 CABG-3 vessel, 2002 AICD, AICD gen changes, DFTs, 2002 L carotid endartectomy, bowel resection for benign flat polyp, abdominal hernia repair, L hip fracture with surgery, L arm benign lesion removed, colonoscopies/polyps, ALEXIS Past Anesthesia/Blood Transfusion Reactions: No Reported Reaction, Motion Sickness Additional Past Anesthesia/Blood Transfusion Reaction / Comment(s): woke up during battery replacement in defibrillator Date of Last Stent Placement:: 2000 Type of Cardiac Device: AICD Device Placement Date:: 2002- [employer] Smoking Status: Former smoker - Past Family History Sister(s) Family Medical History: Cancer Additional Family Medical History / Comment(s): Sister had breast/bladder cancers. Son(s) Family Medical History: Cancer Additional Family Medical History / Comment(s): pancreatic cancer Father Family Medical History: Cancer Additional Family Medical History / Comment(s): Bowel cancer. Mother Family Medical History: Cancer Additional Family Medical History / Comment(s): Mother had bowel cancer twice and 2nd time metastasized to her kidney. Medications and Allergies Home Medications Medication Instructions Recorded Confirmed Type Cholecalciferol [Vitamin D3 (25 25 mcg PO DAILY 06/06/15 03/04/22 History Mcg = 1000 Iu)] Atorvastatin [Lipitor] 80 mg PO HS 01/03/16 03/04/22 History Cyanocobalamin (Vitamin B-12) 1,000 mcg PO DAILY 03/08/20 03/04/22 History [Vitamin B-12] Aspirin 81 mg PO DAILY #30 chewable 03/11/20 03/04/22 Rx ALPRAZolam [Xanax] 0.5 mg PO BID PRN 10/02/21 03/04/22 History Budesonide [Pulmicort] 0.5 mg INHALATION RT-BID 10/02/21 03/04/22 History calcium polycarbophiL [Fibercon] 625 mg PO DAILY 10/02/21 03/04/22 History Pantoprazole [Protonix] 40 mg PO AC-BID #60 tab 10/09/21 03/04/22 Rx carvediloL [Coreg] 3.125 mg PO BID-W/MEALS #60 tab 10/09/21 03/04/22 Rx Ferrous Sulfate [Iron (65 MG 325 mg PO BID 04/05/22 08/17/22 History Elemental)] Furosemide [Lasix] 20 mg PO DAILY #30 tab 10/24/21 03/04/22 Rx lisinopriL [Zestril] 5 mg PO 1200 02/25/22 03/04/22 History Allergies Allergy/AdvReac Type Severity Reaction Status Date / Time No Known Allergies Allergy Verified 03/04/22 06:12 Physical Exam Vitals: Vital Signs Temp Pulse Pulse Resp BP BP Pulse Ox 03/04/22 11:30 63 13 98 03/04/22 11:20 63 15 95 03/04/22 11:10 61 12 99 03/04/22 11:00 60 19 98 03/04/22 10:50 94.7 F L 62 17 98 03/04/22 10:42 98 03/04/22 06:37 97.9 F 60 18 119/58 115/55 97 Intake and Output 03/03/22 03/04/22 03/04/22 22:59 06:59 14:59 Intake Total 500 Balance 500 Intake: IV 500 Other: Weight 68.6 kg ABP, PAP, CO, CI - Last 8 Hours Arterial Blood Pressure 142/75 Arterial Blood Pressure 140/71 Arterial Blood Pressure 156/75 Arterial Blood Pressure 159/76 Arterial Blood Pressure 142/70 Physical Exam: Revealed 81-year-old female in no distress Head: Atraumatic, normocephalic. HEENT:[Neck is supple.] [No neck masses.] [No thyromegaly.] [No JVD.] Chest: [Clear throughout, no crackles, no rhonchi, no wheezes.] Cardiac Exam: [Normal S1 and S2, no S3 gallop, 2/6 systolic murmur thought the precordium Abdomen: [Soft, nontender, no megaly, no rebound, no guarding, normal bowel sounds.] Extremities: [No clubbing, no edema, no cyanosis.] Neurological Exam: [No focal neurologic deficit.] Alert oriented 3. Psychiatric: Normal mood affect and normal mental status examination. Skin: No rashes Results - Laboratory Findings Abnormal lab findings: Abnormal Labs 03/04/22 10:47 POC Glucose (mg/dL) 115 H Assessment and Plan Assessment: Impression: Status post percutaneous aortic valve replacement using a 23 mm Gabriel bernarda Valve Benign essential hypertension Dyslipidemia Coronary arteriosclerosis and previous CABG in [place] in 2000 Ischemic cardiomyopathy and LV dysfunction Underlying COPD severity of which is unclear Chronic back pain History of CVA History of GERD History of carotid stenosis. Previous left carotid endarterectomy Recommendation: Continue present supportive care measures Incentive spirometry Early ambulation Resume home meds Monitor in the ICU for the next 24 hours and possible discharge home in a.m. We will continue to follow. Time with Patient: Greater than 30
[2022-03-04 12:24] LABS: Basophils % (A) 1 %; Eosinophils # (A) 0.3 k/uL (0-0.7); Eosinophils % (A) 5 %; HCT 34.7 % (34.0-46.0); Lymphocytes # (A) 1.3 k/uL (1.0-4.8); Lymphocytes % (A) 25 %; MCH 34.2 pg (25.0-35.0); MCHC 34.7 g/dL (31.0-37.0); MCV 98.3 fL (80.0-100.0); Mean Platelet Volume 7.4; Monocytes # (A) 0.3 k/uL (0-1.0); Monocytes % (A) 7 %; Neutrophils % (A) 61 %; Platelet Count 154 k/uL (150-450); RBC 3.53 m/uL (3.80-5.40); RDW 13.6 % (11.5-15.5)
[2022-03-04 12:38] LABS: Albumin 3.5 g/dL (3.5-5.0); Calcium 9.4 mg/dL (8.4-10.2); Ionized Calcium 5.3 mg/dL (4.5-5.3); Magnesium 1.9 mg/dL (1.6-2.3); Potassium 4.1 mmol/L (3.5-5.1); Total Bilirubin 1.7 mg/dL (0.2-1.3); Total Protein 5.5 g/dL (6.3-8.2)
[2022-03-04 12:55] LABS: Partial Thromboplastin Time 29.9 sec (22.0-30.0)
--- NOTE | 2022-03-04 13:18 | P.OP ---
Date of Procedure: 03/04/22 Preoperative Diagnosis: Symptomatic calcific tricuspid aortic stenosis Postoperative Diagnosis: Same Procedure(s) Performed: Aortic valve replacement via right percutaneous transfemoral approach with 23 Lev 3 transcatheter aortic valve prosthesis. Implants: 23 mm Lev 3 aortic valve Anesthesia: GETA Surgeon: Alex Gross (Cardiovascular surgeon) Gas Station Manager #1: Mark Nelson (First custom studio coordinator) Gas Station Manager #2: Rupesh Cornejo (Second custom studio coordinator) Estimated Blood Loss (ml): 20 IV fluids (ml): 1,000 Pathology: none sent Condition: stable Disposition: ICU Indications for Procedure: 81-year-old female with known stable ascending aortic aneurysm, history of previous coronary artery bypass surgery, symptomatic severe aortic valvular stenosis with very poor performance status Description of Procedure: Patient was brought to the cardiac Sausage Tier. General anesthesia was induced. The anterior torso and bilateral groins were sterilely prepped and draped. Bilateral femoral arterial and left femoral venous access was obtained under ultrasound guidance. Long sheaths were placed on the left and through the venous a transvenous pacer was placed into the right ventricle and tested. On the right 2 Perclose devices were deployed and the femoral artery and 9-Khmer sheath was placed. Through the left femoral artery long sheath a pigtail was advanced into the right coronary sinus of Valsalva. Patient was systemically heparinized and a CTs were maintained greater than 250 during the procedure. The right femoral sheath was exchanged for an Gabriel 14 sheath over a stiff wire. The valve was crossed from the right and a pigtail catheter positioned in the apex of the ventricle. Transvalvular gradients were measured and were significant. Safari wire was placed in the apex of the ventricle and a 23 mm Gabriel Lev 3 valve on its delivery system which had been prepared on the back table was advanced through the big sheath into the descending thoracic aorta. The balloon was then pulled back into the valve and the valve was curved around the arch of the aorta and across the jamul aortic valve. The pusher was pulled back and the valve was deployed under rapid ventricular pacing. Excellent valve deployment levels were obtained. Transesophageal echocardiography demonstrated trivial aortic insufficiency and aortic root injection demonstrated no evidence of aortic insufficiency by angiographic criteria. There was no significant gradient across the valve. The valve deployment system and been pulled back into the descending aorta and was now removed from the sheath. Heparin was reversed with protamine and the sheath was removed and the 2 Perclose devices deployed with good hemostasis in the right groin. 2 sheaths were removed from the left groin and hemostasis obtained with direct pressure. The patient was extubated and transferred to ICU in stable condition.
--- NOTE | 2022-03-04 13:41 | XR ---
EXAMINATION TYPE: XR chest 1V portable DATE OF EXAM: 03/04/2022 Comparison: 10/21/2021 Clinical History: 81-year-old female Post Operative Cardiac Surgery Findings: Left anterior chest wall AICD generator with right atrial and right ventricular leads. Endovascular a ortic valve replacement. Median sternotomy wires with post-CABG changes. Coronary stent. Heart is nor mal in size. Tortuous/ectatic thoracic aorta. Mild hyperinflation. Interstitial prominence is chronic . No consolidation or pleural effusion. Impression: Chronic changes. No acute process seen.
[2022-03-04] MEDS: carvediloL 3.125 MG TAB PO SCH (16:23)
[2022-03-04] MEDS: PANTOPRAZOLE 40 MG TABLET PO SCH (16:24)
[2022-03-04] MEDS: FERROUS SULFATE 325 MG TAB PO SCH (20:46)
[2022-03-04] MEDS: BUDESONIDE 0.5 MG/2 ML NEBU INHALATION SCH (20:47)
[2022-03-04] MEDS ORDERED: ATORVASTATIN 80 MG TAB PO SCH (21:00)
[2022-03-04] MEDS: HEPARIN SODIUM,PORCINE/PF 5,000 UNIT/0.5 ML SYRINGE SQ SCH (23:53)
[2022-03-05 00:46] VITALS: TEMP 98.5
[2022-03-05] MEDS: carvediloL 3.125 MG TAB PO SCH (06:40)
[2022-03-05] MEDS: PANTOPRAZOLE 40 MG TABLET PO SCH (06:40)
[2022-03-05 07:08] LABS: Basophils % (A) 0 %; Eosinophils # (A) 0.1 k/uL (0-0.7); Eosinophils % (A) 1 %; HCT 34.9 % (34.0-46.0); HGB 11.8 gm/dL (11.4-16.0); Lymphocytes # (A) 1.1 k/uL (1.0-4.8); Lymphocytes % (A) 13 %; MCH 32.7 pg (25.0-35.0); MCHC 33.8 g/dL (31.0-37.0); Mean Platelet Volume 7.6; Monocytes # (A) 0.6 k/uL (0-1.0); Monocytes % (A) 7 %; Neutrophils # (A) 6.3 k/uL (1.3-7.7); Neutrophils % (A) 77 %; Platelet Count 133 k/uL (150-450); WBC 8.1 k/uL (3.8-10.6)
[2022-03-05] MEDS: BUDESONIDE 0.5 MG/2 ML NEBU INHALATION SCH (07:19)
--- NOTE | 2022-03-05 07:35 | XR ---
EXAMINATION TYPE: XR chest 1V portable DATE OF EXAM: 03/05/2022 HISTORY: Shortness of breath. COMPARISON: 03/04/2022 TECHNIQUE: Single view of the chest is submitted. FINDINGS: Demonstrated are scattered senescent parenchymal change. Hyperinflation compatible with COPD. Sterno pablito wires noted. Endovascular aortic valve replacement. AICD device in place. There is no evidence for focal infiltrate. The heart is stable. Hilar and mediastinal structures are within normal limits. Degenerative changes are seen of the dorsal spine. IMPRESSION: 1. Chronic changes without evidence for acute pulmonary disease.
[2022-03-05 07:41] LABS: Albumin 3.6 g/dL (3.5-5.0); Calcium 9.4 mg/dL (8.4-10.2); Magnesium 1.9 mg/dL (1.6-2.3); Total Bilirubin 2.4 mg/dL (0.2-1.3); Total Protein 5.6 g/dL (6.3-8.2)
[2022-03-05 07:49] LABS: Ionized Calcium 5.3 mg/dL (4.5-5.3)
[2022-03-05] MEDS ORDERED: ASPIRIN 81 MG PO SCH (09:00)
[2022-03-05] MEDS ORDERED: MAGNESIUM HYDROXIDE 2,400 MG/10 ML CUP PO PRN (09:00)
[2022-03-05] MEDS ORDERED: CHOLECALCIFEROL 25 MCG (1000 IU) TABLET PO SCH (09:00)
[2022-03-05] MEDS ORDERED: CLOPIDOGREL 75 MG TAB PO SCH (09:00)
[2022-03-05] MEDS ORDERED: CYANOCOBALAMIN 500 MCG TAB PO SCH (09:00)
[2022-03-05] MEDS ORDERED: FUROSEMIDE 20 MG TAB PO SCH (09:00)
[2022-03-05] MEDS ORDERED: bisacodyL 10 MG SUPP RECTAL PRN (09:00)
[2022-03-05] MEDS: HEPARIN SODIUM,PORCINE/PF 5,000 UNIT/0.5 ML SYRINGE SQ SCH (09:35)
[2022-03-05] MEDS: FERROUS SULFATE 325 MG TAB PO SCH (09:35)
--- NOTE | 2022-03-05 09:52 | CA ---
Transthoracic Echo Report Name: Mona Purvis Age: 81 Gender: F : 1940 Exam Date: 03/05/2022 08:15 Exam Location: [facility] Ht (in): 64 Wt (lb): 153 Ordering Physician: Naty Rosales Attending/Referring Phys: [id number], Connie Relocation Services Specialist Monika Mares, MARI Procedure CPT: Indications: post TAVR Cardiac Hx: Technical Quality: Good Contrast 1: Total Dose (mL): Contrast 2: Total Dose (mL): MEASUREMENTS (Male / Female) Normal Values 2D ECHO LV Diastolic Diameter PLAX 6.4 cm 4.2 - 5.9 / 3.9 - 5.3 cm LV Systolic Diameter PLAX 4.4 cm IVS Diastolic Thickness 1.3 cm 0.6 - 1.0 / 0.6 - 0.9 cm LVPW Diastolic Thickness 1.5 cm 0.6 - 1.0 / 0.6 - 0.9 cm LV Relative Wall Thickness 0.4 RV Internal Dim ED PLAX 3.1 cm LA Volume 54.6 cm??? 18 - 58 / 22 - 52 cm??? M-MODE Aortic Root Diameter MM 2.4 cm LA Systolic Diameter MM 3.6 cm LA Ao Ratio MM 1.5 MV E Point Septal Separation 1.1 cm AV Cusp Separation MM 1.6 cm DOPPLER AV Peak Velocity 219.2 cm/s AV Peak Gradient 19.2 mmHg AV Mean Velocity 142.4 cm/s AV Mean Gradient 9.1 mmHg AV Velocity Time Integral 40.7 cm LVOT Peak Velocity 117.7 cm/s LVOT Peak Gradient 5.5 mmHg MV Area PHT 3.4 cm??? Mitral E Point Velocity 73.7 cm/s Mitral A Point Velocity 98.0 cm/s Mitral E to A Ratio 0.8 MV Deceleration Time 221.8 ms MV E' Velocity 3.2 cm/s Mitral E to MV E' Ratio 23.1 TR Peak Velocity 245.9 cm/s TR Peak Gradient 24.2 mmHg Right Ventricular Systolic Press 29.2 mmHg FINDINGS Left Ventricle Left ventricular ejection fraction is estimated at 30-35%. Apical Septal hypokinesis. Right Ventricle Normal right ventricular size and function. Right ventricular systolic pressure within normal limits. Right Atrium Normal right atrial size. Left Atrium Mildly increased left atrial volume. Mitral Valve Structurally normal mitral valve. Mild mitral regurgitation. Aortic Valve Normally functioning bioprosthetic aortic valve without stenosis , peak gradient 19.2 mmHg, mean gradient 9.1 mmHg, no paravalvular aortic regurgitation. Tricuspid Valve Structurally normal tricuspid valve. Pulmonic Valve Structurally normal pulmonic valve. Pericardium Normal pericardium. Aorta Aortic root and proximal ascending aorta not well visualized. CONCLUSIONS Impaired LV function was EF of around 35% Normally functioning transcatheter aortic valve with no regurgitation/perivalvular leak No evidence of pericardial effusion Previewed by: Dr. Mark Nelson MD (Electronically Signed) Final Date: 05 March 2022 09:52
--- NOTE | 2022-03-05 10:13 | P.PN ---
Subjective Progress Note Date: 03/05/22 Principal diagnosis: Status post TAVR postoperative day #1 This is a 72-year-old female with history of multiple medical problems including coronary artery disease, previous PCI and CABG over 15 years ago. History of LV dysfunction. And history of aortic stenosis documented on previous echocardiogram going back as far as 2019. chronic dyspnea on exertion, history of cardiac catheterization done on 01/06/22 patient was found to have small to moderate caliber unprotected diagonal 1, heavily calcified 90% proximal LAD and diffuse old LAD stenosis. She was also found to have diffuse degenerative SVG to obtuse marginal branch with 75% stenosis, and the patient was advised to continue aggressive risk factor modification. Patient was seen recently by Dr. Tesfaey, and he recommended transcutaneous aortic valve replacement/TAVR. Patient underwent uneventful procedure today, admitted to the ICU postoperatively, and I was asked to see her on consultation. During my evaluation, patient was noted to be on a Ventimask, doing well, relatively asymptomatic. Hemodynamically s table. O2 saturation was 98% Reevaluated today on 03/05/22, patient is doing great, she is on room air O2 sat is 99% she has no IV fluids, patient is asymptomatic sitting up in a chair, and she doing quite well. Discharge planning is in progress on this patient. Objective - Vital Signs Vital signs: Vital Signs Temp 98.5 F 03/05/22 04:00 Pulse 64 03/05/22 09:00 Resp 15 03/05/22 09:00 BP 109/59 03/05/22 09:00 Pulse Ox 94 L 03/05/22 09:00 FiO2 Intake & Output 03/04/22 03/05/22 03/05/22 18:59 06:59 18:59 Intake Total 600 150 400 Output Total 300 800 350 Balance 300 -650 50 Weight 72.3 kg Intake: Intake, IV Titration 300 150 Amount Lactated Ringers 1,000 ml 300 50 @ 50 mls/hr IV .Q20H AYLIN Rx#:[id number] ceFAZolin 2 gm In Sodium 100 Chloride 0.9% 50 ml @ 100 mls/hr IVPB Q8HR AYLIN Rx# :[id number] Oral 300 400 Output: Urine 300 800 350 Other: Voiding Method Bedside Commode # Voids 0 ABP, PAP, CO, CI - Last Documented Arterial Blood Pressure 111/51 - Exam Physical Exam: Revealed 81-year-old female in no distress Head: Atraumatic, normocephalic. HEENT:[Neck is supple.] [No neck masses.] [No thyromegaly.] [No JVD.] Chest: [Clear throughout, no crackles, no rhonchi, no wheezes.] Cardiac Exam: [Normal S1 and S2, no S3 gallop, 2/6 systolic murmur thought the precordium Abdomen: [Soft, nontender, no megaly, no rebound, no guarding, normal bowel sounds.] Extremities: [No clubbing, no edema, no cyanosis.] Neurological Exam: [No focal neurologic deficit.] Alert oriented 3. Psychiatric: Normal mood affect and normal mental status examination. Skin: No rashes - Labs CBC & Chem 7: 03/05/22 06:11 03/05/22 06:11 Labs: Abnormal Lab Results - Last 24 Hours (Table) 03/04/22 03/04/22 03/04/22 Range/Units 10:47 12:10 12:10 RBC 3.53 L (3.80-5.40) m/uL Plt Count (150-450) k/uL Sodium 135 L (137-145) mmol/L Glucose 137 H (74-99) mg/dL POC Glucose (mg/dL) 115 H (70-110) mg/dL Total Bilirubin 1.7 H (0.2-1.3) mg/dL AST 44 H (14-36) U/L Total Protein 5.5 L (6.3-8.2) g/dL 03/05/22 03/05/22 Range/Units 06:11 06:11 RBC 3.60 L (3.80-5.40) m/uL Plt Count 133 L (150-450) k/uL Sodium 136 L (137-145) mmol/L Glucose 102 H (74-99) mg/dL POC Glucose (mg/dL) (70-110) mg/dL Total Bilirubin 2.4 H (0.2-1.3) mg/dL AST (14-36) U/L Total Protein 5.6 L (6.3-8.2) g/dL Assessment and Plan Assessment: Impression: Status post percutaneous aortic valve replacement using a 23 mm Gabriel bernarda Valve, postoperative day #1 Benign essential hypertension Dyslipidemia Coronary arteriosclerosis and previous CABG in [place] in 2000 Ischemic cardiomyopathy and LV dysfunction Underlying COPD severity of which is unclear Chronic back pain History of CVA History of GERD History of carotid stenosis. Previous left carotid endarterectomy Recommendation: Continue present supportive care measures Incentive spirometry Resume home meds Agree with discharge planning home today Time with Patient: Less than 30
--- NOTE | 2022-03-05 10:15 | P.DS ---
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 Course: MEDICAL HISTORY: 1. Calcified aortic valve with severe symptomatic aortic valve stenosis 2. Shortness of breath, chronic systolic heart failure/ischemic cardiomyopathy consistent with NYHA class II-III 3. History of CAD and myocardial infarction status post PCI (2000) and three- vessel CABG (2002) 4. History of CVA in 1994 and TIA in 2019 5. Current right ICA stenosis 50-79%, previous left ICA stenosis with left CEA 6. Placement of ICD 2002 7. Previous tobacco dependence 8. Mild COPD with FEV1 61% of predicted 9. Hypertension 10. Hyperlipidemia, treated 11. Known ascending aortic aneurysm monitored by Dr. Gross PROCEDURE: 1. Percutaneous aortic valve replacement using 23 mm Gabriel Lev valve 2. Transesophageal echocardiography performed by anesthesia 3. Ultrasound-guided access and repair of right femoral artery access site by Perclose closure device 4. Placement of temporary pacemaker wire from left femoral vein 5. Aortic root angiography HISTORY OF PRESENT ILLNESS: This is a 81-year-old female who follows on an outp atient basis with Dr. Huffman for primary care and Dr. Mo for cardiology. Sh has a known history of severe aortic stenosis and has been symptomatic with increased exertional dyspnea as well as lightheadedness and fatigue. She had been referred to structural heart clinic for evaluation for transcatheter aortic valve replacement after heart catheterization and transesophageal echocardiogram were completed. Echocardiography demonstrated systolic function with EF 30-35%, aortic valve area 0.5 cm with a peak/mean gradient 66/36 mmHg. Heart catheterization showed patent BRUSH to the LAD, 75% stenosis to the mid saphenous vein graft to the obtuse marginal artery, occluded vein graft to the PDA as well as [place] triple-vessel CAD. After workup was completed STS risk score was calculated along with incremental risk and the patient was felt to be very high risk for surgical aortic valve replacement, therefore transcatheter aortic valve replacement was recommended. The usual course of TAVR was discussed in detail with the patient, risks and benefits were reviewed, shared decision making between cardiology, surgery, and the patient/family took place, and the patient consented to proceed with the procedure. HOSPITAL COURSE: The patient was brought to the hospital on 03/04/22, was taken to the extended stay area, prepared in the usual fashion, and subsequently taken to the cardiac catheterization laboratory where Dr. Nelson and Dr. Gross completed TAVR procedure under general anesthesia with fluoroscopy and ALEXIS. The valve was deployed under rapid ventricular pacing and proceeded without event. At the end of the procedure there was mean gradient 2 mmHg, hemodynamics were felt to be acceptable, and there was trace to mild AI which improved after protamine. Upon completion of the procedure the patient was extubated and was transferred to the cardiovascular intensive care unit where she was recovered and monitored hemodynamically. Her oxygen was titrated down, she was tolerating oral diet, her pain was controlled, follow-up TTE demonstrated normally functioning TAVR valve with trace aortic insufficiency, and she was ready to be discharged to home on postoperative day #1. She received written and verbal instruction regarding her medications, activity restrictions, signs and symptoms requiring physician notification, and follow-up appointments. Patient Condition at Discharge: Stable Plan - Discharge Summary Discharge Rx Participant: No New Discharge Prescriptions: New Clopidogrel [Plavix] 75 mg PO DAILY #30 tab Acetaminophen Tab [Tylenol] 650 mg PO Q4HR PRN tab PRN Reason: Fever And/ Or Mild Pain (1-3) Continue Cholecalciferol [Vitamin D3 (25 Mcg = 1000 Iu)] 25 mcg PO DAILY Atorvastatin [Lipitor] 80 mg PO HS Cyanocobalamin (Vitamin B-12) [Vitamin B-12] 1,000 mcg PO DAILY Aspirin 81 mg PO DAILY #30 chewable calcium polycarbophiL [Fibercon] 625 mg PO DAILY Budesonide [Pulmicort] 0.5 mg INHALATION RT-BID Pantoprazole [Protonix] 40 mg PO AC-BID #60 tab Ferrous Sulfate [Iron (65 MG Elemental)] 325 mg PO BID ALPRAZolam [Xanax] 0.5 mg PO BID PRN PRN Reason: Anxiety carvediloL [Coreg] 3.125 mg PO BID-W/MEALS #60 tab Furosemide [Lasix] 20 mg PO DAILY #30 tab lisinopriL [Zestril] 5 mg PO 1200 Discharge Medication List Cholecalciferol [Vitamin D3 (25 Mcg = 1000 Iu)] 25 mcg PO DAILY 06/06/15 [History] Atorvastatin [Lipitor] 80 mg PO HS 01/03/16 [History] Cyanocobalamin (Vitamin B-12) [Vitamin B-12] 1,000 mcg PO DAILY 03/08/20 [History] Aspirin 81 mg PO DAILY #30 chewable 03/11/20 [Rx] ALPRAZolam [Xanax] 0.5 mg PO BID PRN 10/02/21 [History] Budesonide [Pulmicort] 0.5 mg INHALATION RT-BID 10/02/21 [History] calcium polycarbophiL [Fibercon] 625 mg PO DAILY 10/02/21 [History] Pantoprazole [Protonix] 40 mg PO AC-BID #60 tab 10/09/21 [Rx] carvediloL [Coreg] 3.125 mg PO BID-W/MEALS #60 tab 10/09/21 [Rx] Ferrous Sulfate [Iron (65 MG Elemental)] 325 mg PO BID 10/21/21 [History] Furosemide [Lasix] 20 mg PO DAILY #30 tab 10/24/21 [Rx] lisinopriL [Zestril] 5 mg PO 1200 02/25/22 [History] Acetaminophen Tab [Tylenol] 650 mg PO Q4HR PRN tab 03/05/22 [Rx] Clopidogrel [Plavix] 75 mg PO DAILY #30 tab 03/05/22 [Rx] Follow up Appointment(s)/Referral(s): Nishant Huffman DO [Primary Care Provider] - As Needed Michael Mo MD [STAFF PHYSICIAN] - 03/11/22 9:45 am (Your appointment 03/[address] Mo is for groin check. You also have a post TAVR echo appointment at [facility] 04/24/22 @ 2:45 pm) Clinic,Structural Heart [NON-STAFF] - 04/24/22 2:45 pm (Come to the TAVR clinic prior to your echo appointment) Ambulatory/Diagnostic Orders: Basic Metabolic Panel [LAB.AMB] Location: None Selected Complete Blood Count w/diff [LAB.AMB] Facility: [facility], Location: Laboratory Main Hospital Activity/Diet/Wound Care/Special Instructions: DISCHARGE INSTRUCTIONS: 1. No driving for 1 week, or until physician gives their ok. 2. No lifting, pushing, or pulling more than 5-10 pounds for 1 week. 3. Hold both groins when you cough or sneeze for the next 2 weeks. Bruising is common, but report increased swelling, pain or fever >101F 4. Shower daily. No pool, hot tub, or bathtub for 1 week 5. No powders, lotions, ointments on incisions. 6. No straining, including for bowel movements. Use stool softner if necessary 7. Stairs are not an issue. Go slowly, using handrail and take 1 step at a time. Ambulate several times daily 8. Continue pain control per as needed orders. 9. Take only the medications listed on your discharge form 10. Eat low salt (limited to 2 grams or 2000 milligrams) daily, avoid adding salt, avoid canned/processed foods 11. Take your weight daily in the morning and record, bring with you to your follow up appointments 12. Keep all follow up appointments. You will need a valve clinic appointment at 30 days and 1 year post procedure for follow up 13. You have been referred to and are expected to begin Cardiac Rehab in approximately 4 weeks. 14. You will need antibiotics prior to any dental work, including cleanings, and any surgeries to prevent Endocarditis (bacterial infection in your heart) For any questions or concerns please call your valve coordinators: Naty or Booker @ Discharge Disposition: HOME SELF-CARE
[2022-03-05 11:28] VITALS: BP 122/44; PULSE 62; RESP 18
[2022-03-05 12:05] VITALS: BMI 27.3
[2022-03-05] MEDS ORDERED: SENNOSIDES-DOCUSATE SODIUM 1 EACH TAB PO SCH (21:00)
== END 2022-03-05 12:22 | disposition home or self-care (01) | DRG 267 ==
LOC: 2ORMAIN 06:01 → 2SICU 10:17
PROVIDERS: ADMIT Internal Medicine Interventional Cardiology; ATTEND Internal Medicine Interventional Cardiology
PROC: B3101ZZ Fluoroscopy of Thoracic Aorta using Low Osmolar Contrast (ICD-10-PCS; 2022-03-04)
PROC: 5A1223Z Performance of Cardiac Pacing, Continuous (ICD-10-PCS; 2022-03-04)
PROC: B24BZZ4 Ultrasonography of Heart with Aorta, Transesophageal (ICD-10-PCS; 2022-03-04)
PROC: 02RF38Z Replacement of Aortic Valve with Zooplastic Tissue, Percutaneous Approach (ICD-10-PCS; principal; 2022-03-04 08:30)
PROC: 04QK3ZZ Repair Right Femoral Artery, Percutaneous Approach (ICD-10-PCS; 2022-03-04 08:30)
DX: I08.3 Combined rheumatic disorders of mitral, aortic and tricuspid valves (principal); I50.22 Chronic systolic (congestive) heart failure; I11.0 Hypertensive heart disease with heart failure; I71.2 Thoracic aortic aneurysm, without rupture; I65.21 Occlusion and stenosis of right carotid artery; J44.9 Chronic obstructive pulmonary disease, unspecified; E78.5 Hyperlipidemia, unspecified; I25.10 Atherosclerotic heart disease of native coronary artery without angina pectoris; M19.90 Unspecified osteoarthritis, unspecified site; R42 Dizziness and giddiness; I25.5 Ischemic cardiomyopathy; G89.29 Other chronic pain; M54.9 Dorsalgia, unspecified; K21.9 Gastro-esophageal reflux disease without esophagitis; Z00.6 Encounter for examination for normal comparison and control in clinical research program; Z95.1 Presence of aortocoronary bypass graft; Z86.73 Personal history of transient ischemic attack (TIA), and cerebral infarction without residual deficits; I25.2 Old myocardial infarction; Z87.440 Personal history of urinary (tract) infections; Z87.19 Personal history of other diseases of the digestive system; Z86.010 Personal history of colon polyps; Z95.5 Presence of coronary angioplasty implant and graft; Z95.810 Presence of automatic (implantable) cardiac defibrillator; Z90.49 Acquired absence of other specified parts of digestive tract; Z87.81 Personal history of (healed) traumatic fracture; Z87.891 Personal history of nicotine dependence; Z80.52 Family history of malignant neoplasm of bladder; Z80.3 Family history of malignant neoplasm of breast; Z80.51 Family history of malignant neoplasm of kidney; Z80.0 Family history of malignant neoplasm of digestive organs; Z79.899 Other long term (current) drug therapy; Z79.82 Long term (current) use of aspirin
CPT/HCPCS: 33210; 33362; 71045; 80048; 80053; 82330; 83735; 85025; 85027; 85610; 85730; 86850; 86900; 86901; 93306; 93312; 93320; 93325; 94640

== ENCOUNTER → 2022-07-29 | Outpatient (CLI) | payer MEDICARE, BC ==
--- NOTE | 2022-07-29 19:23 | CT ---
CT CHEST FOR PULMONARY EMBOLISM. EXAMINATION TYPE: CT angio chest DATE OF EXAM: 07/29/2022 INDICATION: h/o thoracic aneurysm CT DLP: 555.5 mGycm, Automated exposure control for dose reduction was used. CONTRAST: Patient injected with 100 mL of Isovue 370. COMPARISON: 08/13/2021 TECHNIQUE: CT of the chest is performed on a spiral scan at 2 mm thick sections. Study is performed with intravenous contrast timed for evaluation for pulmonary embolism. This will limit additional po rtions of the evaluation. 3-D MIP images reconstructed by the technologist are reviewed on the compu ter in the coronal and sagittal planes. FINDINGS: No persistent filling defects are evident to suggest an acute pulmonary embolism. No mediastinal or hilar adenopathy enlarged by CT criteria is evident. The ascending aorta diameter at the level of the main pulmonary artery is 5.9 cm. Stable from comparison of the aorta tapers throu gh its visualized course from the arch to the abdomen. There is a suggestion of at least fusiform pro minence within the mid abdominal aorta compared to the proximal abdominal aorta. Consider evaluation of the abdominal aorta as well. The main pulmonary artery diameter at the bifurcation is 2.6 cm. Aaron nary artery calcification is present. There are a few scattered calcifications within the lung melendez, likely granuloma. Limited CT section through the upper abdomen there is a 2.8 cm cyst in the anterior upper pole left k idney. IMPRESSIONS: 1. Stable ascending thoracic aortic aneurysm.
== END | disposition home or self-care (01) ==
LOC: RADCTMAIN 12:25
PROVIDERS: ATTEND Thoracic Surgery (Cardiothoracic Vascular Surgery)
DX: I71.21 Aneurysm of the ascending aorta, without rupture (principal)
CPT/HCPCS: 82565; 84520; 71275; 36415; Q9967

== ENCOUNTER 2022-11-06 12:27 | Observation (INO) | payer MEDICARE, BC ==
[2022-11-06 12:40] LABS: Glucose,Whole Blood 134 mg/dL (70-110)
--- NOTE | 2022-11-06 12:42 | ED ---
General Adult HPI - General Chief complaint: Neuro Symptoms/Deficit Stated complaint: L Sided Numbness Time Seen by Provider: 11/06/22 12:35 Source: patient Mode of arrival: wheelchair Limitations: no limitations - History of Present Illness Initial comments: Dictation was produced using [employer] dictation software. please excuse any grammatical, word or spelling errors. Chief Complaint: 82-year-old female past medical history of stroke presents to the ER for strokelike symptoms History of Present Illness: And is 82-year-old female she denies any symptoms at the bedside. She states that at around 8:30 AM today she had a 30 minute episode of left lower facial tingling, left hand tingling and slurred speech. States that her last for 30 minutes and resolve spontaneously. She was brought to the emergency department by granddaughter. Patient denies any symptoms at the bedside. She does report having a history of cerebrovascular accident. The ROS documented in this emergency department record has been reviewed and confirmed by me. Those systems with pertinent positive or negative responses have been documented in the HPI. All other systems are other negative and/or noncontributory. - Related Data Home Medications Medication Instructions Recorded Confirmed Cholecalciferol [Vitamin D3 (25 25 mcg PO DAILY 06/06/15 11/06/22 Mcg = 1000 Iu)] Atorvastatin [Lipitor] 80 mg PO HS 01/03/16 11/06/22 Cyanocobalamin (Vitamin B-12) 1,000 mcg PO DAILY 03/08/20 11/06/22 [Vitamin B-12] ALPRAZolam [Xanax] 0.5 mg PO BID PRN 10/02/21 11/06/22 Budesonide [Pulmicort] 0.5 mg INHALATION RT-BID 10/02/21 11/06/22 calcium polycarbophiL [Fibercon] 625 mg PO DAILY 10/02/21 11/06/22 lisinopriL [Zestril] 5 mg PO DAILY@1200 02/25/22 11/06/22 Previous Rx's Medication Instructions Recorded Aspirin 81 mg PO DAILY #30 chewable 03/11/20 Pantoprazole [Protonix] 40 mg PO AC-BID #60 tab 10/09/21 carvediloL [Coreg] 3.125 mg PO BID-W/MEALS #60 tab 10/09/21 Acetaminophen Tab [Tylenol] 650 mg PO Q4HR PRN tab 03/05/22 Clopidogrel [Plavix] 75 mg PO DAILY #30 tab 03/05/22 Allergies Allergy/AdvReac Type Severity Reaction Status Date / Time No Known Allergies Allergy Verified 11/06/22 13:53 Review of Systems ROS Statement: Those systems with pertinent positive or pertinent negative responses have been documented in the HPI. ROS Other: All systems not noted in ROS Statement are negative. Past Medical History Past Medical History: Coronary Artery Disease (CAD), COPD, CVA/TIA, GERD/Reflux, Hyperlipidemia, Hypertension, Myocardial Infarction (CT), Osteoarthritis (OA), Vascular Disorder Additional Past Medical History / Comment(s): hx. UTI, low hgb, had EGD which showed erosive gastritis and exacerbation COPD. Other Hx: 1998 CVA with no residual, 02/2020 TIA, carotid stenosis with L carotid endartectomy, pt states she has had irregular heart beat in past but cannot recall type, aortic stenosis/regurgitation, vertigo, balance issues-uses walker prn, back pain/disc problems, benign colon polyp,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, recently had 3 teeth pulled on 12/30/21-on A/B currently Last Myocardial Infarction Date:: 2000 History of Any Multi-Drug Resistant Organisms: None Reported Past Surgical History: AICD, Appendectomy, Bowel Resection, Cholecystectomy, Coronary Bypass/CABG, Heart Catheterization With Stent, Hernia Repair, Orthopedic Surgery Additional Past Surgical History / Comment(s): Arch studies, 2000 PCI with stents, 2002 CABG-3 vessel, 2002 AICD, AICD gen changes, DFTs, 2002 L carotid endartectomy, bowel resection for benign flat polyp, abdominal hernia repair, L hip fracture with surgery, L arm benign lesion removed, colonoscopies/polyps, ALEXIS Past Anesthesia/Blood Transfusion Reactions: No Reported Reaction, Motion Sickness Additional Past Anesthesia/Blood Transfusion Reaction / Comment(s): woke up during battery replacement in defibrillator Date of Last Stent Placement:: 2000 Type of Cardiac Device: AICD Device Placement Date:: 2002- [employer] Past Psychological History: Anxiety Smoking Status: Current every day smoker Past Alcohol Use History: None Reported Past Drug Use History: None Reported - Past Family History Sister(s) Family Medical History: Cancer Additional Family Medical History / Comment(s): Sister had breast/bladder cancers. Son(s) Family Medical History: Cancer Additional Family Medical History / Comment(s): pancreatic cancer Father Family Medical History: Cancer Additional Family Medical History / Comment(s): Bowel cancer. Mother Family Medical History: Cancer Additional Family Medical History / Comment(s): Mother had bowel cancer twice and 2nd time metastasized to her kidney. General Exam - General Exam Comments Initial Comments: PHYSICAL EXAM: General Impression: Alert and oriented x3, not in acute distress HEENT: Normocephalic atraumatic, extra-ocular movements intact, pupils equal and reactive to light bilaterally, mucous membranes moist. Cardiovascular: Heart regular rate and rhythm Chest: Able to complete full sentences, no retractions, no tachypnea Abdomen: abdomen soft, non-tender, non-distended, no organomegaly Musculoskeletal: Pulses present and equal in all extremities, no peripheral edema Motor: no focal deficits noted Neurological: CN II-XII grossly intact, no focal motor or sensory deficits noted, NIH 0 Skin: Intact with no visualized rashes Psych: Normal affect and mood Limitations: no limitations Course Vital Signs 11/06/22 11/06/22 12:30 13:00 Temperature 98.2 F Pulse Rate 63 64 Respiratory 20 15 Rate Blood Pressure 118/76 100/65 O2 Sat by Pulse 98 99 Oximetry EKG Findings - EKG Comments: EKG Findings:: My EKG interpretation: Ventricular rate 63, sinus rhythm, NH 172, QRS 105, QTC 410. No NH prolongation, no QTC prolongation, no ST or T-wave changes noted. EKG compared to 01/15/2022 showing no changes. Overall, this EKG is unremarkable Medical Decision Making - Medical Decision Making Was pt. sent in by a medical professional or institution (, PA, GASTROENTEROLOGY TECHNICIAN, urgent care, hospital, or long term...) When possible be specific @ -No Did you speak to anyone other than the patient for history (EMS, parent, family, police, friend...)? What history was obtained from this source @ -No Did you review nursing and triage notes (agree or disagree)? Why? @ -I reviewed and agree with nursing and triage notes Were old charts reviewed (outside hosp., previous admission, EMS record, old EKG, old radiological studies, urgent care reports/EKG's, long term records)? Report findings @ -Previous chart was reviewed showing the patient has history of valve replacement Differential Diagnosis (chest pain, altered mental status, abdominal pain women, abdominal pain men, vaginal bleeding, musculoskeletal, weakness, fever, dyspnea, syncope, headache, dizziness, GI bleed, back pain, seizure, CVA, palpatations, mental health)? @ -Differential CVA EKG interpreted by me (3pts min.). @ -See above X-rays interpreted by me (1pt min.). @ -Chest x-ray is unremarkable CT interpreted by me (1pt min.). @ -CT brain is unremarkable U/S interpreted by me (1pt. min.). @ -None done What testing was considered but not performed or refused? (CT, X-rays, U/S, labs)? Why? @ -None What meds were considered but not given or refused? Why? @ -None Did you discuss the management of the patient with other professionals (professionals i.e. , PA, GASTROENTEROLOGY TECHNICIAN, lab, RT, psych nurse, social worker aide, legal billing analyst, teacher, associate loan officer, manager rn case)? Give summary @ -Case discussed with sheet for admission Was smoking cessation discussed for >3mins.? @ -No Was critical care preformed (if so, how long)? @ -No Were there social determinants of health that impacted care today? How? (Homelessness, low income, unemployed, alcoholism, drug addiction, transporta tion, low edu. Level, literacy, decrease access to med. care, longterm, rehab)? @ -No Was there de-escalation of care discussed even if they declined (Discuss DNR or withdrawal of care, Hospice)? DNR status @ -No What co-morbidities impacted this encounter? (DM, HTN, Smoking, COPD, CAD, Cancer, CVA, ARF, Chemo, Hep., AIDS, mental health diagnosis, sleep apnea, morbid obesity)? @ -None Was patient admitted / discharged? Hospital course, mention meds given and route, prescriptions, significant lab abnormalities, going to OR and other pertinent info. @ -82-year-old female presents with TIA. Asymptomatic at bedside. CT brain is unremarkable for bleed. Labs within acceptable limits. Patient given aspirin. Will be admitted with consultation to neurology. Undiagnosed new problem with uncertain prognosis? @ -No Drug Therapy requiring intensive monitoring for toxicity (Heparin, Nitro, Insulin, Cardizem)? @ -No Were any procedures done? @ -No Diagnosis/symptom? Acute, or Chronic, or Acute on Chronic? Uncomplicated (without systemic symptoms) or Complicated (systemic symptoms)? @ -Acute uncomplicated transient ischemic attack Side effects of treatment? @ -No Exacerbation, Progression, or Severe Exacerbation? @ -No Poses a threat to life or bodily function? How? (Chest pain, USA, CT, pneumonia, Jane, COPD, DKA, ARF, appy, cholecystitis, CVA, Diverticulitis, Homicidal, Suicidal, threat to staff... and all critical care pts) @ yes - Lab Data Result diagrams: 11/06/22 12:51 11/06/22 12:51 Lab Results 11/06/22 11/06/22 11/06/22 Range/Units 12:39 12:51 12:51 WBC 8.0 (3.8-10.6) k/uL RBC 4.09 (3.80-5.40) m/uL Hgb 12.9 (11.4-16.0) gm/dL Hct 39.0 (34.0-46.0) % MCV 95.3 (80.0-100.0) fL MCH 31.5 (25.0-35.0) pg MCHC 33.0 (31.0-37.0) g/dL RDW 12.8 (11.5-15.5) % Plt Count 188 (150-450) k/uL MPV 7.5 Neutrophils % 67 % Lymphocytes % 20 % Monocytes % 7 % Eosinophils % 4 % Basophils % 1 % Neutrophils # 5.4 (1.3-7.7) k/uL Lymphocytes # 1.6 (1.0-4.8) k/uL Monocytes # 0.5 (0-1.0) k/uL Eosinophils # 0.4 (0-0.7) k/uL Basophils # 0.0 (0-0.2) k/uL PT 10.1 (9.0-12.0) sec INR 0.9 (<1.2) APTT 27.0 (22.0-30.0) sec Sodium (137-145) mmol/L Potassium (3.5-5.1) mmol/L Chloride (98-107) mmol/L Carbon Dioxide (22-30) mmol/L Anion Gap mmol/L BUN (7-17) mg/dL Creatinine (0.52-1.04) mg/dL Est GFR (CKD-EPI)AfAm (>60 ml/min/1.73 sqM) Est GFR (CKD-EPI)NonAf (>60 ml/min/1.73 sqM) Glucose (74-99) mg/dL POC Glucose (mg/dL) 134 H (70-110) mg/dL POC Glu Central Office Operator ID Romulo Hansen Calcium (8.4-10.2) mg/dL Total Bilirubin (0.2-1.3) mg/dL AST (14-36) U/L ALT (4-34) U/L Alkaline Phosphatase (38-126) U/L Creatine Kinase (30-135) U/L Troponin I (0.000-0.034) ng/mL Total Protein (6.3-8.2) g/dL Albumin (3.5-5.0) g/dL 11/06/22 11/06/22 11/06/22 Range/Units 12:51 12:51 12:51 WBC (3.8-10.6) k/uL RBC (3.80-5.40) m/uL Hgb (11.4-16.0) gm/dL Hct (34.0-46.0) % MCV (80.0-100.0) fL MCH (25.0-35.0) pg MCHC (31.0-37.0) g/dL RDW (11.5-15.5) % Plt Count (150-450) k/uL MPV Neutrophils % % Lymphocytes % % Monocytes % % Eosinophils % % Basophils % % Neutrophils # (1.3-7.7) k/uL Lymphocytes # (1.0-4.8) k/uL Monocytes # (0-1.0) k/uL Eosinophils # (0-0.7) k/uL Basophils # (0-0.2) k/uL PT (9.0-12.0) sec INR (<1.2) APTT (22.0-30.0) sec Sodium 139 (137-145) mmol/L Potassium 4.4 (3.5-5.1) mmol/L Chloride 102 (98-107) mmol/L Carbon Dioxide 29 (22-30) mmol/L Anion Gap 8 mmol/L BUN 15 (7-17) mg/dL Creatinine 0.87 (0.52-1.04) mg/dL Est GFR (CKD-EPI)AfAm 73 (>60 ml/min/1.73 sqM) Est GFR (CKD-EPI)NonAf 63 (>60 ml/min/1.73 sqM) Glucose 106 H (74-99) mg/dL POC Glucose (mg/dL) (70-110) mg/dL POC Glu Central Office Operator ID Calcium 9.7 (8.4-10.2) mg/dL Total Bilirubin 1.3 (0.2-1.3) mg/dL AST 23 (14-36) U/L ALT 16 (4-34) U/L Alkaline Phosphatase 132 H (38-126) U/L Creatine Kinase 71 (30-135) U/L Troponin I <0.012 (0.000-0.034) ng/mL Total Protein 6.7 (6.3-8.2) g/dL Albumin 4.4 (3.5-5.0) g/dL Disposition Clinical Impression: TIA (transient ischemic attack) Disposition: ADMITTED IP TO THIS HOSP Condition: Fair Referrals: Nishant Huffman DO [Primary Care Provider] - 1-2 days Decision Time: 14:35
--- NOTE | 2022-11-06 13:21 | CT ---
EXAMINATION TYPE: CT brain wo con DATE OF EXAM: 11/06/2022 HISTORY: Lt hand and face numbness CT DLP: 1087.4 mGycm. Automated Exposure Control for Dose Reduction was Utilized. TECHNIQUE: CT scan of the head is performed without contrast. COMPARISON: CT brain March 08, 2020. FINDINGS: There is no acute intracranial hemorrhage or midline shift identified. There is mild to m oderate diffuse ventricular and sulcal prominence redemonstrated. There is moderately advanced low a ttenuation in the deep and periventricular white matter is redemonstrated. Old infarct right internal capsule near axial image 30 is redemonstrated . Smaller old infarct left coronal radiata axial image 33 redemonstrated. Globes are intact and the visualized sinuses are clear. IMPRESSION: No acute intracranial hemorrhage or midline shift. There is [id number] diffuse ce rebral atrophy and moderate to advanced chronic small vessel ischemic change along with bilateral inf arcts all redemonstrated. No significant change from most recent CT in 2019.
[2022-11-06 13:30] LABS: Albumin 4.4 g/dL (3.5-5.0); Calcium 9.7 mg/dL (8.4-10.2); INR 0.9 (<1.2); Potassium 4.4 mmol/L (3.5-5.1); Prothrombin Time 10.1 sec (9.0-12.0); Total Bilirubin 1.3 mg/dL (0.2-1.3); Total Protein 6.7 g/dL (6.3-8.2)
--- NOTE | 2022-11-06 13:32 | XR ---
EXAMINATION TYPE: XR chest 2V DATE OF EXAM: 11/06/2022 COMPARISON: 03/05/2022 INDICATION: Acute mental status change TECHNIQUE: Frontal and lateral views of the chest are obtained. FINDINGS: The heart size is normal. The pulmonary vasculature is normal. The lungs are clear. Pacemaker overlies left chest. Sternotomy wires are in the midline. No signific ant interval changes are evident. IMPRESSION: 1. No acute pulmonary process.
[2022-11-06 13:40] LABS: Basophils % (A) 1 %; Eosinophils # (A) 0.4 k/uL (0-0.7); Eosinophils % (A) 4 %; HGB 12.9 gm/dL (11.4-16.0); Lymphocytes # (A) 1.6 k/uL (1.0-4.8); Lymphocytes % (A) 20 %; MCH 31.5 pg (25.0-35.0); MCV 95.3 fL (80.0-100.0); Mean Platelet Volume 7.5; Monocytes # (A) 0.5 k/uL (0-1.0); Monocytes % (A) 7 %; Neutrophils # (A) 5.4 k/uL (1.3-7.7); Neutrophils % (A) 67 %; Platelet Count 188 k/uL (150-450); RBC 4.09 m/uL (3.80-5.40); RDW 12.8 % (11.5-15.5)
[2022-11-06] MEDS ORDERED: ASPIRIN 81 MG PO STA (14:18)
[2022-11-06] MEDS ORDERED: ACETAMINOPHEN TAB 325 MG TAB PO PRN (14:26)
[2022-11-06] MEDS ORDERED: ACETAMINOPHEN TAB 500 MG TAB PO STA (14:29)
[2022-11-06] MEDS ORDERED: NALOXONE 0.4 MG/ML 1 ML VIAL IV PRN (14:30)
[2022-11-06] MEDS ORDERED: NICOTINE 14MG/24HR PATCH TRANSDERM STA (14:43)
--- NOTE | 2022-11-06 14:44 | P.HPIM ---
History of Present Illness This is a pleasant 10 years old female with multiple medical problems including atrial fibrillation, hypertension, hyperlipidemia. Patient presents because of left cheek , lip and hand numbness and with difficulty in speech changes noticed by the patient and granddaughter. Episode lasted for about 30-45 minutes. After that patient is back to baseline. Patient currently denies any speech difficulty blurred vision weakness or num bness. No confusion. She has some mild headache. She denies chest pain. No change in urine or bowel habits. No fever. She smokes about 3 cigarettes per day and she was counseled to quit and she ag fiona to the nicotine patch. No alcohol or illicit drugs. When this happened this morning she took her aspirin and Plavix Vitals are stable Patient unremarkable CBC, INR, BMP and liver enzymes. Troponin is negative, creatinine kinase 71 Chest x-ray: No acute process CT of the brain: No acute intracranial hemorrhage or midline shift. There is mild to moderate diffuse cerebral atrophy and moderate to advanced chronic small vessel ischemic changes along with bilateral infarcts DEMONSTRATED. No significant change from most recent CT in 2019 EKG showing normal sinus rhythm with no significant ST-T changes. Mild T-wave inversion in V1 and V2 Patient was given aspirin 325 mg the emergency room Review of Systems Review of systems CONSTITUTIONAL: No fever, no malaise, no fatigue. HEENT: No recent visual problems or hearing problems. Denied any sore throat. CARDIOVASCULAR: No orthopnea, PND, no palpitations, no syncope. PULMONARY: No shortness of breath, no cough, no hemoptysis. GASTROINTESTINAL: No diarrhea, no nausea, no vomiting, no abdominal pain. Normoactive bowel sounds. NEUROLOGICAL: No headaches, no weakness, no numbness. HEMATOLOGICAL: Denies any bleeding or petechiae. GENITOURINARY: Denies any burning micturition, frequency, or urgency. MUSCULOSKELETAL/RHEUMATOLOGICAL: Denies any joint pain, swelling, or any muscle pain. ENDOCRINE: Denies any polyuria or polydipsia. Past Medical History Past Medical History: Coronary Artery Disease (CAD), COPD, CVA/TIA, GERD/Reflux, Hyperlipidemia, Hypertension, Myocardial Infarction ([place]), Osteoarthritis (OA), Vascular Disorder Additional Past Medical History / Comment(s): hx. UTI, low hgb, had EGD which showed erosive gastritis and exacerbation COPD. Other Hx: 1998 CVA with no residual, 02/2020 TIA, carotid stenosis with L carotid endartectomy, pt states she has had irregular heart beat in past but cannot recall type, aortic stenosis/regurgitation, vertigo, balance issues-uses walker prn, back pain/disc problems, benign colon polyp,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, recently had 3 teeth pulled on 12/30/21-on A/B currently Last Myocardial Infarction Date:: 2000 History of Any Multi-Drug Resistant Organisms: None Reported Past Surgical History: AICD, Appendectomy, Bowel Resection, Cholecystectomy, Coronary Bypass/CABG, Heart Catheterization With Stent, Hernia Repair, Orthopedic Surgery Additional Past Surgical History / Comment(s): Arch studies, 2000 PCI with stents, 2002 CABG-3 vessel, 2002 AICD, AICD gen changes, DFTs, 2002 L carotid endartectomy, bowel resection for benign flat polyp, abdominal hernia repair, L hip fracture with surgery, L arm benign lesion removed, colonoscopies/polyps, ALEXIS Past Anesthesia/Blood Transfusion Reactions: No Reported Reaction, Motion Sick ness Additional Past Anesthesia/Blood Transfusion Reaction / Comment(s): woke up during battery replacement in defibrillator Date of Last Stent Placement:: 2000 Type of Cardiac Device: AICD Device Placement Date:: 2002- Medig[employer] Past Psychological History: Anxiety Smoking Status: Current every day smoker Past Alcohol Use History: None Reported Past Drug Use History: None Reported - Past Family History Sister(s) Family Medical History: Cancer Additional Family Medical History / Comment(s): Sister had breast/bladder cancers. Son(s) Family Medical History: Cancer Additional Family Medical History / Comment(s): pancreatic cancer Father Family Medical History: Cancer Additional Family Medical History / Comment(s): Bowel cancer. Mother Family Medical History: Cancer Additional Family Medical History / Comment(s): Mother had bowel cancer twice and 2nd time metastasized to her kidney. Medications and Allergies Home Medications Medication Instructions Recorded Confirmed Type Cholecalciferol [Vitamin D3 (25 25 mcg PO DAILY 06/06/15 11/06/22 History Mcg = 1000 Iu)] Atorvastatin [Lipitor] 80 mg PO HS 01/03/16 11/06/22 History Cyanocobalamin (Vitamin B-12) 1,000 mcg PO DAILY 03/08/20 11/06/22 History [Vitamin B-12] Aspirin 81 mg PO DAILY #30 chewable 03/11/20 11/06/22 Rx ALPRAZolam [Xanax] 0.5 mg PO BID PRN 10/02/21 11/06/22 History Budesonide [Pulmicort] 0.5 mg INHALATION RT-BID 10/02/21 11/06/22 History calcium polycarbophiL [Fibercon] 625 mg PO DAILY 10/02/21 11/06/22 History Pantoprazole [Protonix] 40 mg PO AC-BID #60 tab 10/09/21 11/06/22 Rx carvediloL [Coreg] 3.125 mg PO BID-W/MEALS #60 tab 10/09/21 11/06/22 Rx lisinopriL [Zestril] 5 mg PO DAILY@1200 02/25/22 11/06/22 History Acetaminophen Tab [Tylenol] 650 mg PO Q4HR PRN tab 03/05/22 11/06/22 Rx Clopidogrel [Plavix] 75 mg PO DAILY #30 tab 03/05/22 11/06/22 Rx Allergies Allergy/AdvReac Type Severity Reaction Status Date / Time No Known Allergies Allergy Verified 11/06/22 13:53 Physical Exam Vitals: Vital Signs Temp Pulse Resp BP Pulse Ox 11/06/22 13:00 64 15 100/65 99 11/06/22 12:30 98.2 F 63 20 118/76 98 Intake and Output 11/05/22 11/06/22 11/06/22 22:59 06:59 14:59 Other: Weight 68.039 kg GENERAL: The patient is alert and oriented x3, not in any acute distress. Well developed, well nourished. HEENT: Pupils are round and equally reacting to light. EOMI. No scleral icterus. No conjunctival pallor. Normocephalic, atraumatic. No pharyngeal erythema. No thyromegaly. CARDIOVASCULAR: S1 and S2 present. No murmurs, rubs, or gallops. PULMONARY: Chest is clear to auscultation, no wheezing or crackles. ABDOMEN: Soft, nontender, nondistended, normoactive bowel sounds. No palpable organomegaly. MUSCULOSKELETAL: No joint swelling or deformity. EXTREMITIES: No cyanosis, clubbing, or pedal edema. NEUROLOGICAL: Gross neurological examination did not reveal any focal deficits. SKIN: No rashes. no petechiae. Results CBC & Chem 7: 11/06/22 12:51 11/06/22 12:51 Labs: Abnormal Lab Results - Last 24 Hours (Table) 11/06/22 11/06/22 Range/Units 12:39 12:51 Glucose 106 H (74-99) mg/dL POC Glucose (mg/dL) 134 H (70-110) mg/dL Alkaline Phosphatase 132 H (38-126) U/L Assessment and Plan Assessment: Left facial numbness suspicious for TIA Hypertension Hyperlipidemia History of Coronary Artery Disease, status post AICD COPD, not active issue History of coronary artery disease History of stroke and TIA with no residual weakness History of left carotid stenosis status post endarterectomy History of aortic stenosis and regurgitation History of vertigo 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 Continue same treatment. Continue with symptomatic treatment. Resume home medication. Monitor labs and vitals. DVT and GI prophylaxis. Further recommendations as per clinical course of the patient DVT prophylaxis: Subcutaneous heparin GI Prophylaxis: Ppi Prognosis is guarded
[2022-11-06] MEDS: PANTOPRAZOLE 40 MG TABLET PO SCH (18:32)
[2022-11-06] MEDS: carvediloL 3.125 MG TAB PO SCH (18:32)
[2022-11-06] MEDS: BUDESONIDE 0.5 MG/2 ML NEBU INHALATION SCH (19:37)
[2022-11-06] MEDS: ATORVASTATIN 80 MG TAB PO SCH (19:57)
[2022-11-06] MEDS: HEPARIN SODIUM,PORCINE/PF 5,000 UNIT/0.5 ML SYRINGE SQ SCH (19:57)
[2022-11-07] MEDS ORDERED: ALPRAZolam 0.5 MG TAB PO STA (01:28)
[2022-11-07] MEDS: PANTOPRAZOLE 40 MG TABLET PO SCH ×2 (06:17→16:45)
[2022-11-07] MEDS: carvediloL 3.125 MG TAB PO SCH ×2 (06:17→16:45)
[2022-11-07] MEDS: CHOLECALCIFEROL 25 MCG (1000 IU) TABLET PO SCH (08:03)
[2022-11-07] MEDS: CLOPIDOGREL 75 MG TAB PO SCH (08:03)
[2022-11-07] MEDS: CYANOCOBALAMIN 500 MCG TAB PO SCH (08:03)
[2022-11-07] MEDS: HEPARIN SODIUM,PORCINE/PF 5,000 UNIT/0.5 ML SYRINGE SQ SCH (08:03)
[2022-11-07] MEDS: BUDESONIDE 0.5 MG/2 ML NEBU INHALATION SCH ×2 (08:53→19:39)
[2022-11-07] MEDS ORDERED: ASPIRIN 325 MG TAB PO SCH (09:00)
[2022-11-07] MEDS: lisinopriL 5 MG TAB PO SCH (11:36)
--- NOTE | 2022-11-07 11:36 | US ---
EXAMINATION TYPE: US carotid duplex BILAT DATE OF EXAM: 11/07/2022 COMPARISON: NONE CLINICAL INDICATION: Female, 82 years old with history of TIA; TIA had left endarterectomy. TECHNIQUE: Carotid duplex ultrasound examination. Indirect Doppler criteria was utilized. FINDINGS: EXAM MEASUREMENTS: RIGHT: Peak Systolic Velocity (PSV) cm/sec ----- Right CCA: 95.1 ----- Right ICA: 123 ----- Right ECA: 88.5 ICA/CCA ratio: 1.3 RIGHT: End Diastole cm/sec ----- Right CCA: 12.3 ----- Right ICA: 21.3 ----- Right ECA: 13.1 LEFT: Peak Systolic Velocity (PSV) cm/sec ----- Left CCA: 66.4 ----- Left ICA: 87.7 ----- Left ECA: 142 ICA/CCA ratio: 1.3 LEFT: End Diastole cm/sec ----- Left CCA: 19.7 ----- Left ICA: 23 ----- Left ECA: 8.0 VERTEBRALS (direction of flow): Right Vertebral: Antegrade Left Vertebral: Antegrade Rhythm: Normal BROACH GRINDER NOTES: No significant stenosis seen IMPRESSION: No evidence for hemodynamically significant stenosis Criteria for Assigning % of Stenosis / Diameter reduction (Estimation based on the indirect measurements of the internal carotid artery velocities (ICA PSV). 1. Normal (no stenosis)=ICA PSV < 125 cm/s: ratio < 2.0: ICA EDV<40 cm/s. 2. Less than 50% stenosis=ICA PSV < 125 cm/s: ratio < 2.0: ICA EDV<40 cm/s. 3. 50 to 69% stenosis=ICA PSV of 125 to 230 cm/s: ration 2.0 ? 4.0: ICA EDV 40-100 cm/s. 4. Greater than 70% stenosis to near occlusion= ICA PSV > 230 cm/s: ratio > 4.0: ICA EDV > 100 cm/s. 5. Near occlusion= ICA PSV velocities may be low or undetectable: variable ratio and ICA EDV. 6. Total occlusion=unable to detect flow.
--- NOTE | 2022-11-07 12:12 | CT ---
EXAMINATION TYPE: CT cervical spine wo con DATE OF EXAM: 11/07/2022 COMPARISON: None HISTORY: neck pain CT DLP: 282.[address] of the cervical spine was performed with bone and soft tissue window settings submitted . Coronal and sagittal reconstruction is obtained. There is normal alignment and prevertebral soft tissues. I do not see evidence for fracture or sublu xation. C2-3: Mild degenerative disc space narrowing with mild posterior disc bulge. Mild effacement of the v entral thecal sac. No herniation, stenosis or foraminal encroachment. C3-4: Severe degenerative disc space narrowing and vacuum disc. Posterior disc bulge with the hard di sc noted. Effacement of the ventral thecal sac with mild central stenosis suggested. Degenerative simone nge cervical apophyseal joints without significant foraminal encroachment. C4-5: Severe degenerative disc space narrowing. Posterior disc bulge with hard disc. Effacement ventr al thecal sac with [id number] central stenosis. Moderate degenerative narrowing bilateral neura l foramina. C5-6:Severe degenerative disc space narrowing. Posterior disc bulge with hard disc. Effacement ventra l thecal sac with [id number] central stenosis. Moderate degenerative narrowing bilateral neural foramina. C6-7:Severe degenerative disc space narrowing. Posterior disc bulge with hard disc. Effacement ventra l thecal sac with [id number] central stenosis. Moderate degenerative narrowing bilateral neural foramina. C7-T1: Within normal limits. Thoracic aortic aneurysm partially imaged. IMPRESSION: 1. Multilevel degenerative disc disease with multilevel central stenosis as outlined above.
--- NOTE | 2022-11-07 12:45 | P.CRDCN ---
History of Present Illness Consult date: 11/07/22 Requesting physician: German E Sheet Reason for Consult (text): TIA Chief complaint: left sided hand and facial numbness with slurred speech History of present illness: Is a pleasant 82-year-old patient who follows with Dr. Wilson in the office. She has a history of CABG many years ago, aortic stenosis for which she underwent TAVR in February 2022, prior left carotid endarterectomy, ischemic cardiomyopathy for which she has a dual-chamber ICD with most recent interrogation normal according to her. Presented to the emergency department after developing left hand numbness, tingling of the left side of her face and slurred speech. Symptoms lasted about 25 minutes. EKG on admission showed sinus mechanism. Computed tomography scan of the brain showed no acute intracranial hemorrhage or midline shift with mild to moderate diffuse cerebral atrophy and moderate to advanced chronic small vessel ischemic change lung with bilateral infarcts already demonstrated with no significant change from most recent computed tomography scan in 2019. Chest x-ray showed no acute pulmonary process. Ca rotid Doppler study showed no evidence of hemodynamically significant stenosis. She's been complaining of some dizziness and a computed tomography scan of the cervical spine was done that showed multilevel degenerative disc disease with multilevel central stenosis. Vital signs have been relatively stable. She's had no recurrence of her paresthesias or slurred speech. She denies any complaints of chest discomfort. She's had no shortness of breath, orthopnea, PND or edema. She's had no syncope or near syncope. Past Medical History Past Medical History: Coronary Artery Disease (CAD), COPD, CVA/TIA, GERD/Reflux, Hyperlipidemia, Hypertension, Myocardial Infarction ([place]), Osteoarthritis (OA), Vascular Disorder Additional Past Medical History / Comment(s): UTI, 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, 02/2020 TIA, carotid stenosis with L carotid endartectomy, pt states she has had irregular heart beat in past but cannot recall type, aortic stenosis/regurgitation, vertigo, balance issues-uses walker, back pain/disc problems, benign colon polyp,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 Last Myocardial Infarction Date:: 2000 History of Any Multi-Drug Resistant Organisms: None Reported Past Surgical History: AICD, Appendectomy, Bowel Resection, Cholecystectomy, Coronary Bypass/CABG, Heart Catheterization With Stent, Hernia Repair, Orthopedic Surgery Additional Past Surgical History / Comment(s): Arch studies, 2000 PCI with stents, 2002 CABG-3 vessel, 2002 AICD, AICD gen changes, DFTs, 2002 L carotid endartectomy, bowel resection for benign flat polyp, abdominal hernia repair, L hip fracture with surgery, L arm benign lesion removed, colonoscopies/polyps, ALEXIS Past Anesthesia/Blood Transfusion Reactions: No Reported Reaction, Motion Sickness Additional Past Anesthesia/Blood Transfusion Reaction / Comment(s): woke up during battery replacement in defibrillator Date of Last Stent Placement:: 2000 Type of Cardiac Device: AICD Device Placement Date:: 2002- [employer] Smoking Status: Current every day smoker - Past Family History Sister(s) Family Medical History: Cancer Additional Family Medical History / Comment(s): Sister had breast/bladder can cers. Son(s) Family Medical History: Cancer Additional Family Medical History / Comment(s): pancreatic cancer Father Family Medical History: Cancer Additional Family Medical History / Comment(s): Bowel cancer. Mother Family Medical History: Cancer Additional Family Medical History / Comment(s): Mother had bowel cancer twice and 2nd time metastasized to her kidney. Medications and Allergies Home Medications Medication Instructions Recorded Confirmed Type Cholecalciferol [Vitamin D3 (25 25 mcg PO DAILY 06/06/15 11/06/22 History Mcg = 1000 Iu)] Atorvastatin [Lipitor] 80 mg PO HS 01/03/16 11/06/22 History Cyanocobalamin (Vitamin B-12) 1,000 mcg PO DAILY 03/08/20 11/06/22 History [Vitamin B-12] Aspirin 81 mg PO DAILY #30 chewable 03/11/20 11/06/22 Rx ALPRAZolam [Xanax] 0.5 mg PO BID PRN 10/02/21 11/06/22 History Budesonide [Pulmicort] 0.5 mg INHALATION RT-BID 10/02/21 11/06/22 History calcium polycarbophiL [Fibercon] 625 mg PO DAILY 10/02/21 11/06/22 History Pantoprazole [Protonix] 40 mg PO AC-BID #60 tab 10/09/21 11/06/22 Rx carvediloL [Coreg] 3.125 mg PO BID-W/MEALS #60 tab 10/09/21 11/06/22 Rx lisinopriL [Zestril] 5 mg PO DAILY@1200 02/25/22 11/06/22 History Acetaminophen Tab [Tylenol] 650 mg PO Q4HR PRN tab 03/05/22 11/06/22 Rx Clopidogrel [Plavix] 75 mg PO DAILY #30 tab 03/05/22 11/06/22 Rx Allergies Allergy/AdvReac Type Severity Reaction Status Date / Time No Known Allergies Allergy Verified 11/06/22 13:53 Physical Exam Vitals: Vital Signs Temp Pulse Pulse Resp BP BP Pulse Ox 11/07/22 10:58 98.0 F 61 18 147/76 98 11/07/22 09:01 67 11/07/22 08:55 97 11/07/22 08:53 61 11/07/22 07:56 97.8 F 61 16 147/78 96 11/07/22 04:00 65 18 133/67 96 11/07/22 02:00 18 11/07/22 00:00 63 18 130/72 95 11/06/22 20:00 18 11/06/22 19:53 98 F 61 18 111/68 97 11/06/22 19:42 66 11/06/22 19:32 64 11/06/22 19:08 16 11/06/22 18:53 98.6 F 62 18 134/82 98 11/06/22 18:00 97.8 F 64 18 137/73 11/06/22 17:00 62 19 133/77 11/06/22 16:00 62 20 156/87 99 11/06/22 15:00 63 20 98/47 96 11/06/22 14:00 60 18 110/50 99 11/06/22 13:00 64 15 100/65 99 Intake and Output 11/06/22 11/07/22 11/07/22 22:59 06:59 14:59 Intake Total 130 Balance 130 Intake: IV 10 Invasive Line 1 10 Oral 120 Other: Voiding Method Toilet Toilet Toilet Weight 68.039 kg PHYSICAL EXAMINATION: This is a 82-year-old female in no apparent distress at the time of my examination. HEENT: Head is atraumatic, normocephalic. Pupils are equal, round. Sclerae anicteric. Conjunctivae are clear. Mucous membranes of the mouth are moist. Neck is supple. There is no elevated jugular venous pressure. No carotid bruit is heard. Left-sided carotid endarterectomy scar noted CHEST EXAMINATION: Clear to auscultation bilaterally. No wheezes rales or rhonchi. Respirations even and nonlabored. HEART EXAMINATION: Heart regular, positive S1 and S2. No S3. No S4. Systolic murmur at the base. ABDOMEN: Soft, nontender. Bowel sounds are heard. No organomegaly noted. EXTREMITIES: 2+ peripheral pulses with no evidence of peripheral edema and no calf tenderness noted. NEUROLOGIC EXAMINATION: Patient is awake, alert and oriented x3. Results 11/06/22 12:51 11/06/22 12:51 Cardiac Enzymes 11/06/22 11/06/22 Range/Units 12:51 12:51 AST 23 (14-36) U/L Troponin I <0.012 (0.000-0.034) ng/mL Coagulation 11/06/22 Range/Units 12:51 PT 10.1 (9.0-12.0) sec APTT 27.0 (22.0-30.0) sec CBC 11/06/22 Range/Units 12:51 WBC 8.0 (3.8-10.6) k/uL RBC 4.09 (3.80-5.40) m/uL Hgb 12.9 (11.4-16.0) gm/dL Hct 39.0 (34.0-46.0) % Plt Count 188 (150-450) k/uL Comprehensive Metabolic Panel 11/06/22 Range/Units 12:51 Sodium 139 (137-145) mmol/L Potassium 4.4 (3.5-5.1) mmol/L Chloride 102 (98-107) mmol/L Carbon Dioxide 29 (22-30) mmol/L BUN 15 (7-17) mg/dL Creatinine 0.87 (0.52-1.04) mg/dL Glucose 106 H (74-99) mg/dL Calcium 9.7 (8.4-10.2) mg/dL AST 23 (14-36) U/L ALT 16 (4-34) U/L Alkaline Phosphatase 132 H (38-126) U/L Total Protein 6.7 (6.3-8.2) g/dL Albumin 4.4 (3.5-5.0) g/dL Current Medications Generic Name Dose Route Start Last Admin Trade Name Freq PRN Reason Stop Dose Admin Acetaminophen 650 mg 11/06/22 14:26 Acetaminophen Tab 325 Mg Tab PO Q4HR PRN Fever And/ Or Mild Pain (1-3) Alprazolam 0.25 mg 11/07/22 12:07 Alprazolam 0.25 Mg Tab PO BID PRN Anxiety Aspirin 325 mg 11/07/22 09:00 11/07/22 08:03 Aspirin 325 Mg Tab PO 325 mg DAILY AYLIN Administration Atorvastatin Calcium 80 mg 11/06/22 21:00 11/06/22 19:57 Atorvastatin 80 Mg Tab PO 80 mg HS AYLIN Administration Budesonide 0.5 mg 11/06/22 20:00 11/07/22 08:53 Budesonide 0.5 Mg/2 Ml Nebu INHALATION 0.5 mg RT-BID AYLIN Administration Calcium Polycarbophil 625 mg 11/07/22 09:00 11/07/22 08:03 Calcium Polycarbophil 625 Mg Tab PO 625 mg DAILY AYLIN Administration Carvedilol 3.125 mg 11/06/22 17:30 11/07/22 06:17 Carvedilol 3.125 Mg Tab PO 3.125 mg BID-W/MEALS AYLIN Administration Cholecalciferol 25 mcg 11/07/22 09:00 11/07/22 08:03 Cholecalciferol 25 Mcg (1000 Iu) Tablet PO 25 mcg DAILY AYLIN Administration Clopidogrel Bisulfate 75 mg 11/07/22 09:00 11/07/22 08:03 Clopidogrel 75 Mg Tab PO 75 mg DAILY AYLIN Administration Cyanocobalamin 1,000 mcg 11/07/22 09:00 11/07/22 08:03 Cyanocobalamin 500 Mcg Tab PO 1,000 mcg DAILY AYLIN Administration Heparin Sodium (Porcine) 5,000 unit 11/06/22 21:00 11/07/22 08:03 Heparin Sodium,Porcine/Pf 5,000 Unit/0.5 Ml Syringe SQ 5,000 unit Q12HR AYLIN Administration Lisinopril 5 mg 11/07/22 12:00 11/07/22 11:36 Lisinopril 5 Mg Tab PO 5 mg DAILY@1200 AYLIN Administration Naloxone HCl 0.2 mg 11/06/22 14:30 Naloxone 0.4 Mg/Ml 1 Ml Vial IV Q2M PRN Opioid Reversal Pantoprazole Sodium 40 mg 11/06/22 17:30 11/07/22 06:17 Pantoprazole 40 Mg Tablet PO 40 mg AC-BID AYLIN Administration Intake and Output 11/06/22 11/07/22 11/07/22 22:59 06:59 14:59 Intake Total 130 Balance 130 Intake: IV 10 Invasive Line 1 10 Oral 120 Other: Voiding Method Toilet Toilet Toilet Weight 68.039 kg 11/06/22 12:51 11/06/22 12:51 Assessment and Plan Assessment: #1 TIA #2 CAD with prior CABG #3 status post TAVR for severe aortic stenosis #4 ischemic cardiomyopathy status post AICD Plan: From cardiology's perspective we'll obtain a 2-D echo with Doppler study. We will interrogate the ICD looking for evidence of atrial fibrillation. We will keep the patient nothing by mouth after midnight as patient may require ALEXIS depending on the results of the transthoracic echo and device interrogation. Further recommendations to follow. QUALITY WORKER note has been reviewed, I agree with a documented findings and plan of care. Patient was seen and examined.
[2022-11-07 13:57] LABS: Chol/HDL Ratio 1.96 Ratio; LDL Cholesterol,Calculated 28.6 mg/dL (0.0-131.0)
--- NOTE | 2022-11-07 16:12 | CA ---
Transthoracic Echo Report Name: Mona Purvis Age: 82 Gender: F : 1940 Exam Date: 11/07/2022 14:02 Exam Location: [facility] [facility] Ht (in): 65 Wt (lb): 150 Ordering Physician: Annie Grayson Attending/Referring Phys: [id number], Renuka Admissions Counselor Juliet Nur, RDANTHONY Procedure CPT: Indications: TIA, prior TAVR Cardiac Hx: TAVR, AICD Technical Quality: Fair Contrast 1: Total Dose (mL): Contrast 2: Total Dose (mL): MEASUREMENTS (Male / Female) Normal Values 2D ECHO LV Diastolic Diameter PLAX 3.8 cm 4.2 - 5.9 / 3.9 - 5.3 cm LV Systolic Diameter PLAX 3.1 cm IVS Diastolic Thickness 1.3 cm 0.6 - 1.0 / 0.6 - 0.9 cm LVPW Diastolic Thickness 1.2 cm 0.6 - 1.0 / 0.6 - 0.9 cm LV Relative Wall Thickness 0.6 RV Internal Dim ED PLAX 2.9 cm LVOT Diameter 2.1 cm LA Systolic Diameter LX 3.7 cm 3.0 - 4.0 / 2.7 - 3.8 cm LV Diastolic Volume MOD 4C 78.7 cm??? LV Systolic Volume MOD 4C 47.8 cm??? LV Ejection Fraction MOD 4C 39.3 % LV Diastolic Length 4C 6.5 cm LV Systolic Length 4C 6.1 cm M-MODE Aortic Root Diameter MM 3.0 cm MV E Point Septal Separation 0.7 cm AV Cusp Separation MM 1.7 cm DOPPLER AV Peak Velocity 230.1 cm/s AV Peak Gradient 21.2 mmHg AV Mean Velocity 161.1 cm/s AV Mean Gradient 11.8 mmHg AV Velocity Time Integral 51.5 cm LVOT Peak Velocity 105.1 cm/s LVOT Peak Gradient 4.4 mmHg AV Area Cont Eq pk 1.5 cm??? MV Area PHT 2.7 cm??? Mitral E Point Velocity 87.9 cm/s Mitral A Point Velocity 109.8 cm/s Mitral E to A Ratio 0.8 MV Deceleration Time 277.7 ms TR Peak Velocity 244.7 cm/s TR Peak Gradient 23.9 mmHg Right Ventricular Systolic Press 28.9 mmHg FINDINGS Left Ventricle Left ventricular ejection fraction is estimated at 40-45 %. Mild LVH. Severe hypokinesis of the anteroapical and anteroseptal wall with possible apical thrombus Right Ventricle Normal right ventricular size and function. Right ventricular systolic pressure within normal limits. Right Atrium Normal right atrial size. Left Atrium Normal left atrial size. Mitral Valve Structurally normal mitral valve. Mild mitral regurgitation. Mitral annular calcification. Aortic Valve Normly functioning bioprostetic AOV with max gradient of 21 mmHg and mean gradient of 12 mmHg. No aortic regurgitation. Tricuspid Valve Structurally normal tricuspid valve. Mild tricuspid regurgitation. Pulmonic Valve No pulmonic regurgitation.pulmonic valve not well visualized. Pericardium Normal pericardium. No pericardial effusion. Aorta Normal size aortic root and proximal ascending aorta. CONCLUSIONS 1. Moderately impaired left ventricle systolic function with segmental wall motion abnormality 2. Possible apical thrombus 3. Bioprosthetic aortic valve with normal function 4. Mild mitral and tricuspid regurgitation Previewed by: Dr. Emil Luna MD (Electronically Signed) Final Date: 07 November 2022 16:11
--- NOTE | 2022-11-07 16:39 | P.PN ---
Subjective This is a pleasant 10 years old female with multiple medical problems including atrial fibrillation, hypertension, hyperlipidemia. Patient presents because of left cheek , lip and hand numbness and with difficulty in speech changes noticed by the patient and granddaughter. Episode lasted for about 30-45 minutes. After that patient is back to baseline. Patient currently denies any speech difficulty blurred vision weakness or numbness. No confusion. She has some mild headache. She denies chest pain. No change in urine or bowel habits. No fever. She smokes about 3 cigarettes per day and she was counseled to quit and she agrees to the nicotine patch. No alcohol or illicit drugs. When this happened this morning she took her aspirin and Plavix Vitals are stable Patient unremarkable CBC, INR, BMP and liver enzymes. Troponin is negative, creatinine kinase 71 Chest x-ray: No acute process CT of the brain: No acute intracranial hemorrhage or midline shift. There is mild to moderate diffuse cerebral atrophy and moderate to advanced chronic small vessel ischemic changes along with bilateral infarcts DEMONSTRATED. No significant change from most recent CT in 2019 EKG showing normal sinus rhythm with no significant ST-T changes. Mild T-wave inversion in V1 and V2 Patient was given aspirin 325 mg the emergency room 11/07/2022 No more numbness of the face of the hand. No other new complaints, no chest pain or dyspnea. No confusion or weakness. Carotid duplex is negative. CT of the brain diffusely little atrophy and old bilateral infarct, no acute changes. Neurologist recommended cardiac Keflex which came back negative, CT of the cervical spine showed multilevel degenerative disc disease and multilevel mild to moderate spinal stenosis also has evidence of thoracic aortic aneurysm partially visualized. Cardiology team were consulted. They don't to interrogate her AICD and ordered an echocardiogram. Based on this result patient may need ALEXIS per shipping room helper. Vitals and labs are stable Objective - Vital Signs Vital signs: Vital Signs Temp 98.0 F 11/07/22 10:58 Pulse 61 11/07/22 10:58 Resp 18 11/07/22 10:58 BP 147/76 11/07/22 10:58 Pulse Ox 98 11/07/22 10:58 FiO2 Intake & Output 11/06/22 11/07/22 11/07/22 18:59 06:59 18:59 Intake Total 250 Balance 250 Weight 68.039 kg Intake: IV 10 Invasive Line 1 10 Oral 240 Other: Voiding Method Toilet Toilet - Exam GENERAL: The patient is alert and oriented x3, not in any acute distress. Well developed, well nourished. HEENT: Pupils are round and equally reacting to light. EOMI. No scleral icterus. No conjunctival pallor. Normocephalic, atraumatic. No pharyngeal erythema. No thyromegaly. CARDIOVASCULAR: S1 and S2 present. No murmurs, rubs, or gallops. PULMONARY: Chest is clear to auscultation, no wheezing or crackles. ABDOMEN: Soft, nontender, nondistended, normoactive bowel sounds. No palpable organomegaly. MUSCULOSKELETAL: No joint swelling or deformity. EXTREMITIES: No cyanosis, clubbing, or pedal edema. NEUROLOGICAL: Gross neurological examination did not reveal any focal deficits. SKIN: No rashes. no petechiae. 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 Continue same treatment. Continue with symptomatic treatment. Resume home medication. Monitor labs and vitals. DVT and GI prophylaxis. Further recommendations as per clinical course of the patient DVT prophylaxis: Subcutaneous heparin GI Prophylaxis: Ppi Prognosis is guarded
--- NOTE | 2022-11-07 18:07 | P.CNNES ---
History of Present Illness Consult date: 11/07/22 Requesting physician: German Sheffield Reason for Consult: Facial numbness History of Present Illness: This is a telemedicine consultation performed today on 11/07/2022. Patient is a 82-year-old right-handed female with previous history of strokes and TIA, came to the hospital yesterday at 12:27 PM due to strokelike symptoms. Patient states that yesterday between 9 to 9:30 AM, after taking her morning pills, she noticed sudden onset of numbness of the left hand, then also noticed numbness of the left upper lip and below the nose area. She also noticed that she was having trouble speaking, slurring of speech. Patient says that because she has strokes in the past, she got concerned and therefore came to the ER. Patient states that these symptoms lasted for about 20-30 minutes and went away. At present she has no symptoms. Patient states her first stroke occurred 20 years ago when she was in [place] which affected her right side of the body. She required therapy. She has had multiple TIAs afterwards, but never had any residual effects. Patient has history of TAVR in February 2022. Vital signs on arrival blood pressure 118/76, pulse rate 63 temperature 98.2. Blood test shows normal CBC, PT/PTT, normal CMP and troponin. EKG shows sinus rhythm CT head showed no acute intracranial process. There is mild to moderate diffuse cerebral atrophy and moderate to advanced chronic small vessel ischemic changes noted along with bilateral infarcts already demonstrated. No significant change from the most recent CT head from 2019. I personally reviewed CT head and agree with the findings. Prominent subcortical encephalomalacia involving the right anterior limb of internal capsule, left frontal and left parietal centrum semiovale region. Chest x-ray showed no acute pulmonary process Patient currently on aspirin 81 mg, Plavix 75 mg and Lipitor 80 mg. Patient has been seen by myself on 03/11/2020 for recurrent TIA 3 with right hemiparesis resolving in 15 minutes. Patient CTA of head and neck showed bilateral ICA stenosis, 70% on the left and 80% on the right. Patient has had left CEA in 2000 as well. CTA of the neck showed 80% stenosis on the right, and 70% on the left. Patient was placed on dual antiplatelet medication with aspirin and Plavix. Tobacco cessation was recommended with high-dose statins. 2-D echo showed no embolic source. Patient had undergone cerebral angiogram on 04/09/2020, which did not reveal significant stenosis in either ICA. Patient states that her neck cracks all the time, and she has pressure in the neck, that extends to the frontal region and feels pressure in the eyes. She was seen by Dr. Cobb, her neurologist about 2 years ago, performed some injections on the right side. He was supposed to do it for the left side, but as there was no improvement from the first injection, she did not pursue with him. In the meantime, Argeniskarli hit therefore she did not make an appointment with him. Patient has history of smoking less than one pack per day since she was age 23. Only for the last 1 year, she has cut back to smoking 3 cigarettes a day. Patient has history of CABG in 2000. Review of Systems Constitutional: Denies chills, Denies fever Eyes: bilateral blurred vision (apt with eye dr in December), bilateral dry eye, denies pain Ears: deny: decreased hearing, ear discharge Ears, nose, mouth and throat: Reports headache, Denies sore throat Cardiovascular: Denies chest pain, Denies shortness of breath Respiratory: Denies cough, Denies excessive sputum Gastrointestinal: Denies abdominal pain, Denies diarrhea, Denies nausea, Denies vomiting Integumentary: Denies pruritus, Denies rash Neurological: Reports as per HPI Past Medical History Past Medical History: Coronary Artery Disease (CAD), COPD, CVA/TIA, GERD/Reflux, Hyperlipidemia, Hypertension, Myocardial Infarction ([place]), Osteoarthritis (OA), Vascular Disorder Additional Past Medical History / Comment(s): UTI, 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, 02/2020 TIA, carotid stenosis with L carotid endartectomy, pt states she has had irregular heart beat in past but cannot recall type, aortic stenosis/regurgitation, vertigo, balance issues-uses walker, back pain/disc problems, benign colon polyp,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 Last Myocardial Infarction Date:: 2000 History of Any Multi-Drug Resistant Organisms: None Reported Past Surgical History: AICD, Appendectomy, Bowel Resection, Cholecystectomy, Coronary Bypass/CABG, Heart Catheterization With Stent, Hernia Repair, Orthopedic Surgery Additional Past Surgical History / Comment(s): Arch studies, 2000 PCI with stents, 2002 CABG-3 vessel, 2002 AICD, AICD gen changes, DFTs, 2002 L carotid endartectomy, bowel resection for benign flat polyp, abdominal hernia repair, L hip fracture with surgery, L arm benign lesion removed, colonoscopies/polyps, ALEXIS Past Anesthesia/Blood Transfusion Reactions: No Reported Reaction, Motion Sickness Additional Past Anesthesia/Blood Transfusion Reaction / Comment(s): woke up during battery replacement in defibrillator Date of Last Stent Placement:: 2000 Type of Cardiac Device: AICD Device Placement Date:: 2002- [employer] Smoking Status: Current every day smoker - Past Family History Sister(s) Family Medical History: Cancer Additional Family Medical History / Comment(s): Sister had breast/bladder ca ncers. Son(s) Family Medical History: Cancer Additional Family Medical History / Comment(s): pancreatic cancer Father Family Medical History: Cancer Additional Family Medical History / Comment(s): Bowel cancer. Mother Family Medical History: Cancer Additional Family Medical History / Comment(s): Mother had bowel cancer twice and 2nd time metastasized to her kidney. Medications and Allergies Home Medications Medication Instructions Recorded Confirmed Type Cholecalciferol [Vitamin D3 (25 25 mcg PO DAILY 06/06/15 11/06/22 History Mcg = 1000 Iu)] Atorvastatin [Lipitor] 80 mg PO HS 01/03/16 11/06/22 History Cyanocobalamin (Vitamin B-12) 1,000 mcg PO DAILY 03/08/20 11/06/22 History [Vitamin B-12] Aspirin 81 mg PO DAILY #30 chewable 03/11/20 11/06/22 Rx ALPRAZolam [Xanax] 0.5 mg PO BID PRN 10/02/21 11/06/22 History Budesonide [Pulmicort] 0.5 mg INHALATION RT-BID 10/02/21 11/06/22 History calcium polycarbophiL [Fibercon] 625 mg PO DAILY 10/02/21 11/06/22 History Pantoprazole [Protonix] 40 mg PO AC-BID #60 tab 10/09/21 11/06/22 Rx carvediloL [Coreg] 3.125 mg PO BID-W/MEALS #60 tab 10/09/21 11/06/22 Rx lisinopriL [Zestril] 5 mg PO DAILY@1200 02/25/22 11/06/22 History Acetaminophen Tab [Tylenol] 650 mg PO Q4HR PRN tab 03/05/22 11/06/22 Rx Clopidogrel [Plavix] 75 mg PO DAILY #30 tab 03/05/22 11/06/22 Rx Allergies Allergy/AdvReac Type Severity Reaction Status Date / Time No Known Allergies Allergy Verified 11/06/22 13:53 Physical Examination - Vital Signs Vital Signs: Vital Signs Temp Pulse Pulse Resp BP BP Pulse Ox 11/07/22 07:56 97.8 F 61 16 147/78 96 11/07/22 04:00 65 18 133/67 96 11/07/22 02:00 18 11/07/22 00:00 63 18 130/72 95 11/06/22 20:00 18 11/06/22 19:53 98 F 61 18 111/68 97 11/06/22 19:42 66 11/06/22 19:32 64 11/06/22 19:08 16 11/06/22 18:53 98.6 F 62 18 134/82 98 11/06/22 18:00 97.8 F 64 18 137/73 11/06/22 17:00 62 19 133/77 11/06/22 16:00 62 20 156/87 99 11/06/22 15:00 63 20 98/47 96 11/06/22 14:00 60 18 110/50 99 11/06/22 13:00 64 15 100/65 99 11/06/22 12:30 98.2 F 63 20 118/76 98 Intake and Output 11/06/22 11/07/22 11/07/22 22:59 06:59 14:59 Intake Total 130 Balance 130 Intake: IV 10 Invasive Line 1 10 Oral 120 Other: Voiding Method Toilet Toilet Toilet Weight 68.039 kg Patient is an elderly female, very pleasant, in no acute distress. Patient is alert awake oriented to time place and person. Speech and language functions are normal. Patient can name and repeat very well. No aphasia or dysarthria. Attention, concentration and fund of knowledge is adequate. On cranial nerve examination, pupils are equal, round and reacting to light, visual melendez are full on confrontation, with no neglect on double simultaneous stimulation. Extraocular muscles are intact with no nystagmus. Patient has subtle left flattening of the nasolabial fold. Her tongue protrudes to the midline. Palatal elevation and sensation normal, hearing and shoulder shrug normal, facial sensation normal. On muscle strength testing, there is no pronator drift and the strength is normal in arms and legs distally and proximally. Deep tendon reflexes are symmetric 1+ and plantars downgoing. Sensory to touch is equal with no neglect on double simultaneous stimulation. Cerebellar function showed no ataxia for [id number] testing. No d ysdiadochokinesia. No ataxia for [id number] testing on either side. Tone and bulk of muscles normal. Gait deferred.. On general examination, there is no carotid bruit or murmur, S1-S2 audible. Chest is clear on consultation. Abdomen is soft nontender. No organomegaly, bowel sounds present. Peripheral pulses are present. No edema. Results - Laboratory Findings CBC and BMP: 11/06/22 12:51 11/06/22 12:51 Abnormal Lab Findings: Abnormal Labs 11/06/22 11/06/22 12:39 12:51 Glucose 106 H POC Glucose (mg/dL) 134 H Alkaline Phosphatase 132 H Assessment and Plan Assessment: * Probable TIA manifesting with transient numbness of the left lower facial region, left arm and slurred speech, that resolved in 20-30 minutes. * Previous history of multiple TIAs also resolving in 15-20 minutes. * Hypertension * Chronic tobacco use, still smokes 3 cigarettes per day. * Chronic cervicalgia * AICD * History of left CEA in 2000. Plan: * Check carotid Doppler to rule out stenosis * 2-D echo to rule out embolic source * Telemetry monitoring, rule out arrhythmia * Recommend complete tobacco cessation. * Patient was on aspirin 81 mg and Plavix 75 mg. Dose of aspirin escalated to 325 mg for now. * DVT prophylaxis: Heparin 5000 units subcu every 12 hour. * Hemoglobin A1c 5.7 * Fasting lipid panel with cholesterol 106, LDL 28, HDL 54 and triglycerides 117. Continue Lipitor 80 mg at bedtime (same dose at home). * Gastric ulcer prophylaxis, patient on Protonix. * Patient complains of significant issues regarding her cervical spine with neck pain producing headaches. We will check CT of the cervical spine. * Neurology will follow. Thank you for the consult. Addendum 6 PM: * Carotid Doppler revealed no evidence for hemodynamically significant stenosis. Antegrade flow in both vertebral arteries. * 2-D echo performed today revealed moderately impaired left-ventricular systolic function with segmental wall motion abnormality. EF is between 40- 45%. Possible apical thrombus. Bioprosthetic aortic valve with normal function. Mild mitral and tricuspid regurgitation. * Discussed with primary physician. Recommended to start heparin IV. Drop one of the antiplatelet medication. * Recommend ALEXIS for further evaluation.
[2022-11-07] MEDS ORDERED: HEPARIN SODIUM 1,000 UN/ML (10ML VL) IV ONE (18:37)
[2022-11-07] MEDS ORDERED: HEPARIN SODIUM 1,000 UN/ML (10ML VL) IV PRN (18:37)
[2022-11-07] MEDS ORDERED: HEPARIN SOD,PORK IN 0.45% NACL 25,000 UNIT in 0.45% NACL 1 250ML.BAG IV SCH (18:45)
[2022-11-07] MEDS: ATORVASTATIN 80 MG TAB PO SCH (20:02)
[2022-11-07] MEDS: ALPRAZolam 0.25 MG TAB PO PRN (20:12)
[2022-11-08] MEDS: CLOPIDOGREL 75 MG TAB PO SCH (07:09)
[2022-11-08] MEDS: carvediloL 3.125 MG TAB PO SCH ×2 (07:17→17:28)
[2022-11-08] MEDS: CHOLECALCIFEROL 25 MCG (1000 IU) TABLET PO SCH (07:17)
[2022-11-08] MEDS: CYANOCOBALAMIN 500 MCG TAB PO SCH (07:17)
[2022-11-08] MEDS: PANTOPRAZOLE 40 MG TABLET PO SCH ×2 (07:17→17:27)
[2022-11-08 07:47] LABS: Basophils # (A) 0.1 k/uL (0-0.2); Basophils % (A) 1 %; Eosinophils # (A) 0.3 k/uL (0-0.7); Eosinophils % (A) 4 %; HCT 40.8 % (34.0-46.0); HGB 13.4 gm/dL (11.4-16.0); Lymphocytes # (A) 1.7 k/uL (1.0-4.8); Lymphocytes % (A) 24 %; MCH 31.7 pg (25.0-35.0); MCHC 32.9 g/dL (31.0-37.0); MCV 96.5 fL (80.0-100.0); Mean Platelet Volume 7.5; Monocytes # (A) 0.5 k/uL (0-1.0); Monocytes % (A) 6 %; Neutrophils # (A) 4.5 k/uL (1.3-7.7); Neutrophils % (A) 63 %; Platelet Count 171 k/uL (150-450); RBC 4.23 m/uL (3.80-5.40); RDW 12.8 % (11.5-15.5); WBC 7.1 k/uL (3.8-10.6)
[2022-11-08 07:59] LABS: Calcium 10.4 mg/dL (8.4-10.2)
[2022-11-08 08:08] LABS: Partial Thromboplastin Time 79.2 sec (22.0-30.0); Prothrombin Time 10.6 sec (9.0-12.0)
[2022-11-08] MEDS: BUDESONIDE 0.5 MG/2 ML NEBU INHALATION SCH ×2 (09:03→21:43)
--- NOTE | 2022-11-08 13:24 | P.PN ---
Subjective Progress Note Date: 11/08/22 this is a pleasant 82-year-old patient who follows with Dr. Wilson in the office. She has a history of CABG many years ago, aortic stenosis for which she underwent TAVR in February 2022, prior left carotid endarterectomy, ischemic cardiomyopathy for which she has a dual-chamber ICD with most recent interrogat ion normal according to her. Presented to the emergency department after developing left hand numbness, tingling of the left side of her face and slurred speech. Symptoms lasted about 25 minutes. EKG on admission showed sinus mechanism. Computed tomography scan of the brain showed no acute intracranial hemorrhage or midline shift with mild to moderate diffuse cerebral atrophy and moderate to advanced chronic small vessel ischemic change lung with bilateral infarcts already demonstrated with no significant change from most recent computed tomography scan in 2019. Chest x-ray showed no acute pulmonary process. Carotid Doppler study showed no evidence of hemodynamically significant stenosis. She's been complaining of some dizziness and a computed tomography scan of the cervical spine was done that showed multilevel degenerative disc disease with multilevel central stenosis. Vital signs have been relatively stable. She's had no recurrence of her paresthesias or slurred speech. She denies any complaints of chest discomfort. She's had no shortness of breath, orthopnea, PND or edema. She's had no syncope or near syncope. 11/08/2022 The patient was seen and examined sitting up beside the bed. Echocardiogram with Doppler was done yesterday and showed moderately impaired LV systolic function with an ejection fraction of 40-45% with segmental wall motion abnormality, possible apical thrombus felt to be chronic, bioprosthetic aortic valve with normal function and mild MR and TR. She was initiated on IV heparin by primary. ICD interrogation was reviewed and shows very brief episodes of paroxysmal atrial fibrillation. Her symptoms have resolved and she's not had recurrence. She does complain of headache. She's being followed by neurology. Objective - Vital Signs Vital signs: Vital Signs Temp 97.7 F 11/08/22 07:25 Pulse 60 11/08/22 09:10 Resp 16 11/08/22 09:10 BP 138/70 11/08/22 07:25 Pulse Ox 100 11/08/22 09:03 FiO2 Intake & Output 11/07/22 11/08/22 11/08/22 18:59 06:59 18:59 Intake Total 370 362.203 Balance 370 362.203 Intake: IV 10 240 .9@20 240 Invasive Line 1 10 Intake, IV Titration 122.203 Amount Heparin Sod,Pork in 0.45% 122.203 NaCl 25,000 unit In 0.45 % NaCl 1 250ml.bag @ 12 UNITS/KG/HR 8.165 mls/hr IV .Q24H [facility] Rx#: [id number] Oral 360 Other: Voiding Method Toilet Toilet Toilet # Voids 3 1 1 # Bowel Movements 1 - Exam PHYSICAL EXAMINATION: This is a 82-year-old female in no apparent distress at the time of my examination. HEENT: Head is atraumatic, normocephalic. Pupils are equal, round. Sclerae anicteric. Conjunctivae are clear. Mucous membranes of the mouth are moist. Neck is supple. There is no elevated jugular venous pressure. No carotid bruit is heard. Left-sided carotid endarterectomy scar noted CHEST EXAMINATION: Clear to auscultation bilaterally. No wheezes rales or rhonchi. Respirations even and nonlabored. HEART EXAMINATION: Heart regular, positive S1 and S2. No S3. No S4. Systolic murmur at the base. ABDOMEN: Soft, nontender. Bowel sounds are heard. No organomegaly noted. EXTREMITIES: 2+ peripheral pulses with no evidence of peripheral edema and no calf tenderness noted. NEUROLOGIC EXAMINATION: Patient is awake, alert and oriented x3. - Labs CBC & Chem 7: 11/08/22 07:11 11/08/22 07:11 Labs: Abnormal Lab Results - Last 24 Hours (Table) 11/08/22 11/08/22 11/08/22 Range/Units 00:11 07:11 07:11 APTT 74.5 H 79.2 H (22.0-30.0) sec Carbon Dioxide 31 H (22-30) mmol/L Glucose 103 H (74-99) mg/dL Calcium 10.4 H (8.4-10.2) mg/dL Assessment and Plan Assessment: #1 TIA #2 CAD with prior CABG #3 status post TAVR for severe aortic stenosis #4 ischemic cardiomyopathy status post AICD #5 possible apical thrombus, likely chronic #6 brief paroxysmal atrial fibrillation Plan: From cardiology's perspective we will discontinue IV heparin. Start the patient on Eliquis. Stop aspirin. Continue clopidogrel. She'll follow-up in the office with Dr. Mo as an outpatient. KETTLE ROOM HELPER note has been reviewed, I agree with a documented findings and plan of care. Patient was seen and examined.
[2022-11-08] MEDS: lisinopriL 5 MG TAB PO SCH (13:38)
[2022-11-08] MEDS: ATORVASTATIN 80 MG TAB PO SCH (17:29)
[2022-11-08] MEDS: APIXABAN 5 MG TAB PO SCH (17:30)
--- NOTE | 2022-11-08 19:58 | P.PN ---
Subjective Progress Note Date: 11/08/22 This is a telemedicine neurology follow-up performed today on 11/09/2022. Patient was seen for a follow-up. Patient denies any new focal symptoms. Patient is feeling dizzy all the time. This is not new findings. She complains of neck pain, like pressure. Objective - Vital Signs Vital signs: Vital Signs Temp 97.7 F 11/08/22 07:25 Pulse 60 11/08/22 09:10 Resp 16 11/08/22 09:10 BP 138/70 11/08/22 07:25 Pulse Ox 100 11/08/22 09:03 FiO2 Intake & Output 11/07/22 11/08/22 11/08/22 18:59 06:59 18:59 Intake Total 370 362.203 Balance 370 362.203 Intake: IV 10 240 .9@20 240 Invasive Line 1 10 Intake, IV Titration 122.203 Amount Heparin Sod,Pork in 0.45% 122.203 NaCl 25,000 unit In 0.45 % NaCl 1 250ml.bag @ 12 UNITS/KG/HR 8.165 mls/hr IV .Q24H [facility] Rx#: [id number] Oral 360 Other: Voiding Method Toilet Toilet Toilet # Voids 3 1 1 # Bowel Movements 1 - Exam Patient's mental status, speech and language functions are normal. - Labs CBC & Chem 7: 11/08/22 07:11 11/08/22 07:11 Labs: Abnormal Lab Results - Last 24 Hours (Table) 11/08/22 11/08/22 11/08/22 Range/Units 00:11 07:11 07:11 APTT 74.5 H 79.2 H (22.0-30.0) sec Carbon Dioxide 31 H (22-30) mmol/L Glucose 103 H (74-99) mg/dL Calcium 10.4 H (8.4-10.2) mg/dL Assessment and Plan Assessment: * Probable TIA manifesting with transient numbness of the left lower facial region, left arm and slurred speech, that resolved in 20-30 minutes. * Previous history of multiple TIAs also resolving in 15-20 minutes. * Hypertension * Chronic tobacco use, still smokes 3 cigarettes per day. * Chronic cervicalgia * AICD * History of left CEA in 2000. Plan: * Carotid Doppler revealed no evidence for hemodynamically significant stenosis. Antegrade flow in both vertebral arteries. * 2-D echo performed today revealed moderately impaired left-ventricular systolic function with segmental wall motion abnormality. EF is between 40- 45%. Possible apical thrombus. Bioprosthetic aortic valve with normal fun ction. Mild mitral and tricuspid regurgitation. * Discussed with primary physician. Recommended to start heparin IV. Drop one of the antiplatelet medication. * Recommend ALEXIS for further evaluation. * Telemetry monitoring, rule out arrhythmia * Recommend complete tobacco cessation. * DVT prophylaxis: Heparin IV * Hemoglobin A1c 5.7 * Fasting lipid panel with cholesterol 106, LDL 28, HDL 54 and triglycerides 117. Continue Lipitor 80 mg at bedtime (same dose at home). * Gastric ulcer prophylaxis, patient on Protonix. * CT of the cervical spine showed multilevel degenerative disc disease with multilevel central stenosis. There is mild to moderate central canal stenosis at C6 7, C5 6 and C4 5. Thoracic aortic aneurysm, partially imaged. Will defer to IM regarding thoracic aneurysm. Patient going for ALEXIS in the morning. * Dr. Adams Yang will resume neurology service in the morning.
--- NOTE | 2022-11-08 21:15 | P.PN ---
Subjective This is a pleasant 10 years old female with multiple medical problems including atrial fibrillation, hypertension, hyperlipidemia. Patient presents because of left cheek , lip and hand numbness and with difficulty in speech changes noticed by the patient and granddaughter. Episode lasted for about 30-45 minutes. After that patient is back to baseline. Patient currently denies any speech difficulty blurred vision weakness or numbness. No confusion. She has some mild headache. She denies chest pain. No change in urine or bowel habits. No fever. She smokes about 3 cigarettes per day and she was counseled to quit and she agrees to the nicotine patch. No alcohol or illicit drugs. When this happened this morning she took her aspirin and Plavix Vitals are stable Patient unremarkable CBC, INR, BMP and liver enzymes. Troponin is negative, creatinine kinase 71 Chest x-ray: No acute process CT of the brain: No acute intracranial hemorrhage or midline shift. There is mild to moderate diffuse cerebral atrophy and moderate to advanced chronic small vessel ischemic changes along with bilateral infarcts DEMONSTRATED. No significant change from most recent CT in 2019 EKG showing normal sinus rhythm with no significant ST-T changes. Mild T-wave inversion in V1 and V2 Patient was given aspirin 325 mg the emergency room 11/07/2022 No more numbness of the face of the hand. No other new complaints, no chest pain or dyspnea. No confusion or weakness. Carotid duplex is negative. CT of the brain diffusely little atrophy and old bilateral infarct, no acute changes. Neurologist recommended cardiac Keflex which came back negative, CT of the cervical spine showed multilevel degenerative disc disease and multilevel mild to moderate spinal stenosis also has evidence of thoracic aortic aneurysm partially visualized. Cardiology team were consulted. They don't to interrogate her AICD and ordered an echocardiogram. Based on this result patient may need ALEXIS per exchange administrator. Vitals and labs are stable 11/08/2022 Patient is doing well, complaining of from some mild neck pain which she says symptoms go. No other complaints. No more numbness in the left face and left lower or upper extremities. No weakness. Patient was informed she has thrombosed and her echocardiogram of the heart and she agrees with anticoagulation after risks and benefits are explained for her to the risk of bleeding. Cardiology recommended to start on Eliquis. . No need for a ALEXIS per exchange administrator Orthopedic team were consulted today for her cervical spine disease Patient is aware of her thoracic aortic aneurysm that she's follow up with Dr. Gross every July, last visit was last July. He currently is asymptomatic.. Objective - Vital Signs Vital signs: Vital Signs Temp 97.7 F 11/08/22 07:25 Pulse 60 11/08/22 09:10 Resp 16 11/08/22 09:10 BP 138/70 11/08/22 07:25 Pulse Ox 100 11/08/22 09:03 FiO2 Intake & Output 11/07/22 11/08/22 11/08/22 18:59 06:59 18:59 Intake Total 370 362.203 Balance 370 362.203 Intake: IV 10 240 .9@20 240 Invasive Line 1 10 Intake, IV Titration 122.203 Amount Heparin Sod,Pork in 0.45% 122.203 NaCl 25,000 unit In 0.45 % NaCl 1 250ml.bag @ 12 UNITS/KG/HR 8.165 mls/hr IV .Q24H AYLIN Rx#: [id number] Oral 360 Other: Voiding Method Toilet Toilet Toilet # Voids 3 1 1 # Bowel Movements 1 - Exam GENERAL: The patient is alert and oriented x3, not in any acute distress. Well developed, well nourished. HEENT: Pupils are round and equally reacting to light. EOMI. No scleral icterus. No conjunctival pallor. Normocephalic, atraumatic. No pharyngeal erythema. No thyromegaly. CARDIOVASCULAR: S1 and S2 present. No murmurs, rubs, or gallops. PULMONARY: Chest is clear to auscultation, no wheezing or crackles. ABDOMEN: Soft, nontender, nondistended, normoactive bowel sounds. No palpable organomegaly. MUSCULOSKELETAL: No joint swelling or deformity. EXTREMITIES: No cyanosis, clubbing, or pedal edema. NEUROLOGICAL: Gross neurological examination did not reveal any focal deficits. SKIN: No rashes. no petechiae. 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, orthopedic team consulted Intracardiac thrombus Chronic aortic aneurysm of the thoracic aorta Hypertension Hyperlipidemia History of Coronary Artery Disease, status post AICD COPD, not active issue History of coronary artery disease 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 Gross as an outpatient for aortic aneurysm Labs and medication were reviewed.. Continue same treatment. Continue with symptomatic treatment. Resume home medication. Monitor labs and vitals. DVT and GI prophylaxis. Further recommendations as per clinical course of the patient DVT prophylaxis: Eliquis GI Prophylaxis: Ppi Prognosis is guarded
[2022-11-08] MEDS: ALPRAZolam 0.25 MG TAB PO PRN (21:40)
[2022-11-09] MEDS: carvediloL 3.125 MG TAB PO SCH (06:24)
[2022-11-09] MEDS: PANTOPRAZOLE 40 MG TABLET PO SCH (06:24)
[2022-11-09] MEDS: BUDESONIDE 0.5 MG/2 ML NEBU INHALATION SCH (07:48)
[2022-11-09] MEDS: CYANOCOBALAMIN 500 MCG TAB PO SCH (09:48)
[2022-11-09] MEDS: CHOLECALCIFEROL 25 MCG (1000 IU) TABLET PO SCH (09:48)
[2022-11-09] MEDS: APIXABAN 5 MG TAB PO SCH (09:48)
[2022-11-09] MEDS: CLOPIDOGREL 75 MG TAB PO SCH (09:48)
--- NOTE | 2022-11-09 10:26 | P.CNOR ---
History of Present Illness - [facility] Consult date: 11/09/22 Requesting physician: Suzanna Graham Consult reason: neck pain History of present illness: Patient is a very pleasant 82-year-old female who is known to our service from years ago who is seen exam the bedside in regards to her cervical spine. She originally presented to [facility] for further evaluation of strokelike symptoms. She did have left-sided facial numbness, slurred speech, and left upper extremity numbness and tingling. The symptoms resolved in ap proximately 30-45 minutes. She has not had any of these symptoms since the initial incident. Currently, she denies any upper extremity weakness or radiculopathy bilaterally. She admits to some ongoing chronic cervical pain which has been worse over the past 2 years. She previously followed up with Dr. Carbone in pain management years ago. She has had some treatment through the pain clinic and [facility]. She states while following with Dr. Carbone she was referred here for injections due to her pacemaker placement. She has not had recent injections. CT imaging of her cervical spine was performed with just show significant degenerative change at her cervical spine. She is known to have degenerative changes at her cervical spine. She also states she has had some dizziness and vertigo. She was previously seen by Dr. Cobb in neurology in the outpatient setting but states she has not been able to follow with him since the outbreak of the COVID-19 pandemic. She is currently being evaluated by neurology due to her strokelike symptoms during her admission. She was diagnosed with probable TIA. She has been seen by cardiology as well. They were planning for a ALEXIS this morning for possible atypical thrombus but this has been canceled as nursing states they have felt it is chronic. She also states she experiences a pressure sensation in her posterior cervical spine with some pain behind her eyes. She was on Plavix but has just been converted to Eliquis. She states that since she was converted to Eliquis she has had some improvement of her symptoms. Patient continues to be seen exam by medicine as well. . Patient's other medical diagnoses include history of multiple TIAs which resolved in approximately 15-20 minutes, hypertension, and chronic tobacco use. 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 Last Myocardial Infarction Date:: 2000 History of Any Multi-Drug Resistant Organisms: None Reported Past Surgical History: AICD, Appendectomy, Bowel Resection, Cholecystectomy, Coronary Bypass/CABG, Heart Catheterization With Stent, Hernia Repair, Orthopedic Surgery Additional Past Surgical History / Comment(s): Arch studies, 2000 PCI with stents, 2002 CABG-3 vessel, 2002 AICD, AICD gen changes, DFTs, 2002 L carotid endartectomy, bowel resection for benign flat polyp, abdominal hernia repair, L hip fracture with surgery, L arm benign lesion removed, colonoscopies/polyps, ALEXIS Past Anesthesia/Blood Transfusion Reactions: No Reported Reaction, Motion Sickness Additional Past Anesthesia/Blood Transfusion Reaction / Comm: woke up during battery replacement in defibrillator Date of Last Stent Placement:: 2000 Type of Cardiac Device: AICD Device Placement Date:: 2002- Be Here Smoking Status: Current every day smoker - Past Family History Sister(s) Family Medical History: Cancer Additional Family Medical History / Comment(s): Sister had breast/bladder cancers. Son(s) Family Medical History: Cancer Additional Family Medical History / Comment(s): pancreatic cancer Father Family Medical History: Cancer Additional Family Medical History / Comment(s): Bowel cancer. Mother Family Medical History: Cancer Additional Family Medical History / Comment(s): Mother had bowel cancer twice an d 2nd time metastasized to her kidney. Medications and Allergies Home Medications Medication Instructions Recorded Confirmed Type Cholecalciferol [Vitamin D3 (25 25 mcg PO DAILY 06/06/15 11/06/22 History Mcg = 1000 Iu)] Atorvastatin [Lipitor] 80 mg PO HS 01/03/16 11/06/22 History Cyanocobalamin (Vitamin B-12) 1,000 mcg PO DAILY 03/08/20 11/06/22 History [Vitamin B-12] Aspirin 81 mg PO DAILY #30 chewable 03/11/20 11/06/22 Rx ALPRAZolam [Xanax] 0.5 mg PO BID PRN 10/02/21 11/06/22 History Budesonide [Pulmicort] 0.5 mg INHALATION RT-BID 10/02/21 11/06/22 History calcium polycarbophiL [Fibercon] 625 mg PO DAILY 10/02/21 11/06/22 History Pantoprazole [Protonix] 40 mg PO AC-BID #60 tab 10/09/21 11/06/22 Rx carvediloL [Coreg] 3.125 mg PO BID-W/MEALS #60 tab 10/09/21 11/06/22 Rx lisinopriL [Zestril] 5 mg PO DAILY@1200 02/25/22 11/06/22 History Acetaminophen Tab [Tylenol] 650 mg PO Q4HR PRN tab 03/05/22 11/06/22 Rx Clopidogrel [Plavix] 75 mg PO DAILY #30 tab 03/05/22 11/06/22 Rx Allergies Allergy/AdvReac Type Severity Reaction Status Date / Time No Known Allergies Allergy Verified 11/06/22 13:53 Physical Examination Physical exam: Patient is awake, alert, and oriented 3 Vital signs stable Good chest excursion with deep inspiration and expiration Examination of the cervical spine reveals skin is intact with no abrasions, lacerations, or bruises; no erythema, purulence or signs of infection Full range of motion of the cervical spine with adequate flexion, extension, and bilateral rotation No significant pain with palpation of the posterior cervical spine and over the trapezius bilaterally Web Pressman strength, thumb strength, interosseous strength, biceps strength, triceps strength, and shoulder strength positive sustained bilaterally Upper extremity strength 5/5 bilaterally Biceps reflex 2+ bilaterally and Brachioradialis reflexes 2+ bilaterally No upper extremity hyperreflexia bilaterally Hoffmans sign negative upper extremity bilaterally Results Pertinent studies: CT of the cervical spine taken on 11/07/2022: C2-3 degenerative disc disease and disc bulging with mild effacement of the ventral sac; C3-4 severe degenerative disc disease with vacuum disc, posterior disc bulge, and spondylosis with mild central canal stenosis; C4-5, C5-6, and C6-7 severe degenerative disc disease and posterior disc bulging resulting in mild to moderate central canal stenosis with moderate neural foraminal narrowing; do not see evidence of fracture - Labs Labs: H & H 11/06/22 11/08/22 Range/Units 12:51 07:11 Hgb 12.9 13.4 (11.4-16.0) gm/dL Hct 39.0 40.8 (34.0-46.0) % Coagulation 11/06/22 11/08/22 Range/Units 12:51 07:11 INR 0.9 1.0 (<1.2) Result Diagrams: 11/08/22 07:11 11/08/22 07:11 Assessment and Plan Assessment: Assessment: Chronic cervical pain C4-5, C5-6, and C6-7 severe degenerative disc disease C4-5, C5-6, and C6-7 mild to moderate central canal stenosis with moderate neural foraminal narrowing Cervical spondylosis Cervical stenosis History of injection pain management Probable TIA prior to presentation to the emergency department On long-term anticoagulation use Left-sided facial numbness, slurred speech, and left upper extremity numbness and tingling prior to presentation to the emergency department History of multiple TIAs which resolved Hypertension Chronic tobacco use Pacemaker placement Dizziness or vertigo (1) Cervical stenosis of spinal canal Current Visit: Yes Status: Acute Code(s): M48.02 - SPINAL STENOSIS, CERVICAL REGION SNOMED Code(s): 50411101 (2) Degenerative cervical disc Current Visit: Yes Status: Acute Code(s): M50.30 - OTHER CERVICAL DISC DEGENERATION, UNSP CERVICAL REGION SNOMED Code(s): 67842384 (3) Cervical spondylosis Current Visit: Yes Status: Acute Code(s): M47.812 - SPONDYLOSIS W/O MYELOPATHY OR RADICULOPATHY, CERVICAL REGION SNOMED Code(s): 995087578 (4) Chronic cervical pain Current Visit: Yes Status: Acute Code(s): M54.2 - CERVICALGIA; G89.29 - OTHER CHRONIC PAIN SNOMED Code(s): 5624077115633 (5) History of TIAs Current Visit: Yes Status: Acute Code(s): Z86.73 - PRSNL HX OF TIA (TIA), AND CEREB INFRC W/O RESID DEFICITS SNOMED Code(s): 313514002 (6) Hypertension Current Visit: Yes Status: Acute Code(s): I10 - ESSENTIAL (PRIMARY) HYPERTENSION SNOMED Code(s): 34297447 (7) Tobacco use Current Visit: Yes Status: Acute Code(s): Z72.0 - TOBACCO USE SNOMED Code(s): 550767825 (8) Pacemaker Current Visit: Yes Status: Acute Code(s): Z95.0 - PRESENCE OF CARDIAC PACEMAKER SNOMED Code(s): 875771481 (9) Dizziness Current Visit: Yes Status: Acute Code(s): R42 - DIZZINESS AND GIDDINESS SNOMED Code(s): 527995841 (10) TIA (transient ischemic attack) Current Visit: Yes Status: Acute Code(s): G45.9 - TRANSIENT CEREBRAL ISCHEMIC ATTACK, UNSPECIFIED SNOMED Code(s): 303354986 Plan: Plan: 1. Mona has been experiencing chronic cervical pain for years. She admits is some posterior cervical pain and pressure with some pain behind her eyes. Symptoms have been ongoing and are not acute nature. She previously worked through treatment with pain management but nothing recently. She currently denies any upper extremity weakness or radiculopathy bilaterally. Her pain is most significant in her posterior cervical spine. Her pain is exacerbated with rotation of the cervical spine bilaterally. Initially, she presented to the emergency department after having an episode of left-sided facial numbness with slurred speech and left upper extremity numbness and tingling. The symptoms resolved approximately 30-45 minutes following their onset. She has not had any of these symptoms since her admission to the hospital. She is currently being seen by multiple medical providers including neurology, medicine, and cardiology. She was on Plavix but has just been converted to Eliquis. She states that since she was converted to Eliquis she has had some improvement of her symptoms in regards to the pressure at the back of her head and pain behind the eyes symptoms. Currently, we would plan have her work to further conservative treatment options. We would plan to have her be seen and examined by pain management to discuss her symptoms, imaging, further treatment options. She currently would like to wait for evaluation with pain management given some improvement of her symptoms following medication change. She would be willing to see pain management in the outpatient setting. From an orthopedic spine standpoint, we are not currently planning for any acute surgical intervention regards to her cervical spine. She does experience chronic cervical pain which has not had any significant tire changer aircraft the past couple years. She has a history of falling with pain management in regards to her cervical spine with pain and degenerative changes in the past. She is not experiencing any upper extremity weakness or radiculopathy bilaterally. She is able to perform good active range of motion of bilateral upper extremity independently without difficulty. Currently, if her symptoms are not well- controlled with medication, we would recommend further evaluation with pain management before considering the possibility of surgical intervention. Patient is currently stable from an orthopedic spine standpoint. Patient is clear for discharge from orthopedic spine standpoint. We will plan have her follow-up in the outpatient setting on an as-needed basis for further treatment evaluation as needed. We did discuss if she were to follow-up pain management she would need to be off of anticoagulation prior to injections with pain management. Currently the patient feels she should continue conservative treatment options given the improvement of her symptoms recently. 2. She does have some ongoing dizziness or vertigo. She also has some pain behind her eyes which has been improving. She as followed by Dr. Cobb in neurology years ago but has not followed with him since Covid pandemic in 2020. She states she would plan to follow-up with him following discharge from the hospital. We strongly recommend she follows with urology in the outpatient setting which the patient states she is planning to do so. 3. Patient will continue be seeing him on multiple other medical providers during her admission to the hospital. Time with Patient: Greater than 30 (Including obtaining history, physical examination, reviewing of imaging, and dictation.)
[2022-11-09 11:52] VITALS: TEMP 98.1
[2022-11-09] MEDS: lisinopriL 5 MG TAB PO SCH (12:30)
[2022-11-09 14:05] VITALS: BP 108/73; PULSE 70; RESP 16
--- NOTE | 2022-11-11 22:26 | P.DS ---
Providers Date of admission: 11/06/22 14:39 Attending physician: German Sheffield MD Consults: 11/06/22 14:28 Consult Physician Routine Consulting Provider: Suzanna Graham Consult Reason/Comments: facial numbness Do you want consulting provider notified?: Yes 11/08/22 09:48 Consult Physician Routine Consulting Provider: Reena Abraham Consult Reason/Comments: Chronic neck pain, abn CT C spine Do you want consulting provider notified?: Yes Primary care physician: [facility] Course: Final Diagnosis Left facial numbness suspicious for TIA , resolved Degenerative disc cervical spine disease, orthopedic to follow up outpatient Intracardiac thrombus felt to be chronic Chronic aortic aneurysm of the thoracic aorta Hypertension Hyperlipidemia History of Coronary Artery Disease, status post AICD COPD, not active issue History of coronary artery disease History of stroke and TIA with no residual weakness History of left carotid stenosis status post endarterectomy History of aortic stenosis and regurgitation History of vertigo 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 Patient has been cleared by cardiology, neurology and orthopedics. Patient has been started on eliquis. Lisinopril has been discontinued on discharge secondary to low/normal blood pressures. Patient to continue yearly follow up with CT surgeon Dr. Gross for thoracic aneurysm, Dr. Vann with vascular surgery, Dr. Cobb patients neurologist, Dr. Mo, Dr. Abraham and also recommend patient to see PCP Dr. Huffman in 1 to 2 days. Hospital Course This is a pleasant 82 year old female with multiple medical problems including atrial fibrillation, hypertension, hyperlipidemia. Patient presents because of left cheek , lip and hand numbness and with difficulty in speech changes noticed by the patient and granddaughter. Episode lasted for about 30-45 minutes. After that patient is back to baseline. Patient currently denies any speech difficulty blurred vision weakness or numbness. No confusion. She has some mild headach on admission. denying chest pain. No fever/chills. Patient smokes about 3 cigarettes per day. Reports no alcohol or illicit drugs. Patient has been maintained on aspirin and plavix outpatient. CT of the brain: No acute intracranial hemorrhage or midline shift. There is mild to moderate diffuse cerebral atrophy and moderate to advanced chronic small vessel ischemic changes along with bilateral infarcts DEMONSTRATED. No significant change from most recent CT in 2019. EKG showing normal sinus rhythm with no significant ST-T changes. Mild T-wave inversion in V1 and V2. CT of the cervical spine showed multilevel degenerative disc disease and multilevel mild to moderate spinal stenosis also has evidence of thoracic aortic aneurysm partially visualized. Echocardiogram done showing moderately impaired left ventricle systolic function with segmental wall motion abnormality. EF is 40- 45%. Possible apical thrombus. Bioprosthetic aortic valve with normal function. There is mild mitral and tricuspid regurgitation. Patient has been started on eliquis as recommended by cardiology. Neurology recommending ALEXIS, cardiology feels ALEXIS not necessary. Both have cleared patient for discharge. Patient will continue on plavix and stop aspirin 81 mg. Patient was evaluated by Dr. Abraham who will follow up with the patient in the office. No significant lab abnormalities. Patient has remained hemodynamically stable. Currently alert x 3 and focal neurological exam is negative. Patient to be discharged home. Please see medication reconciliation for a list of current medication. Thank you for allowing us to participate in the care of this patient. The impression and plan of care has been dictated by Sabi Landrum, Nurse Practitioner as directed. Dr. Jacobo MD I have performed a history and physical examination and medical decision making of this patient, discussed the same with the dictator, and agree with the dictators assessment and plan as written, documented as a scribe. Based on total visit time, I have performed more than 50% of this visit. Patient Condition at Discharge: Stable Plan - Discharge Summary Discharge Rx Participant: Yes New Discharge Prescriptions: New Apixaban [Eliquis] 5 mg PO BID #60 tab Meclizine [Antivert] 25 mg PO TID PRN #30 tab PRN Reason: Vertigo Continue Cholecalciferol [Vitamin D3 (25 Mcg = 1000 Iu)] 25 mcg PO DAILY Atorvastatin [Lipitor] 80 mg PO HS Cyanocobalamin (Vitamin B-12) [Vitamin B-12] 1,000 mcg PO DAILY calcium polycarbophiL [Fibercon] 625 mg PO DAILY Budesonide [Pulmicort] 0.5 mg INHALATION RT-BID Pantoprazole [Protonix] 40 mg PO AC-BID #60 tab Clopidogrel [Plavix] 75 mg PO DAILY #30 tab carvediloL [Coreg] 3.125 mg PO BID-W/MEALS #60 tab Acetaminophen Tab [Tylenol] 650 mg PO Q4HR PRN tab PRN Reason: Fever And/ Or Mild Pain (1-3) Discontinued Aspirin 81 mg PO DAILY #30 chewable ALPRAZolam [Xanax] 0.5 mg PO BID PRN PRN Reason: Anxiety lisinopriL [Zestril] 5 mg PO DAILY@1200 Discharge Medication List Cholecalciferol [Vitamin D3 (25 Mcg = 1000 Iu)] 25 mcg PO DAILY 06/06/15 [History] Atorvastatin [Lipitor] 80 mg PO HS 01/03/16 [History] Cyanocobalamin (Vitamin B-12) [Vitamin B-12] 1,000 mcg PO DAILY 03/08/20 [History] Budesonide [Pulmicort] 0.5 mg INHALATION RT-BID 10/02/21 [History] calcium polycarbophiL [Fibercon] 625 mg PO DAILY 10/02/21 [History] Pantoprazole [Protonix] 40 mg PO AC-BID #60 tab 10/09/21 [Rx] carvediloL [Coreg] 3.125 mg PO BID-W/MEALS #60 tab 10/09/21 [Rx] Acetaminophen Tab [Tylenol] 650 mg PO Q4HR PRN tab 03/05/22 [Rx] Clopidogrel [Plavix] 75 mg PO DAILY #30 tab 03/05/22 [Rx] Apixaban [Eliquis] 5 mg PO BID #60 tab 11/09/22 [Rx] Meclizine [Antivert] 25 mg PO TID PRN #30 tab 11/09/22 [Rx] Follow up Appointment(s)/Referral(s): [facility] [facility] [NON-STAFF] - 1 Week Nishant Huffman DO [Primary Care Provider] - 1-2 days Heriberto Ortega PAC [PHYSICIAN [facility]] - As Needed (Patient may follow-up with Heriberto Ortega PA-C or Dr. Jb Abraham at [facility] on an as-needed basis following discharge. ) Maria Isabel Vann DO [STAFF PHYSICIAN] - 2 Weeks (vascular surgeon ) Michael Mo MD [STAFF PHYSICIAN] - 2 Weeks Dusty Delgado MD [STAFF PHYSICIAN] - As Needed Zeferino Cobb DO [STAFF PHYSICIAN] - 1 Week Activity/Diet/Wound Care/Special Instructions: Continue to follow up yearly for the thoracic aneurysm as prior Keep follow up appointment with your project coordinator for December of 2022 Discharge/Stand Alone Forms: Who Do I Call?, Personal [employer] Discharge Disposition: HOME SELF-CARE
== END 2022-11-09 16:07 | disposition home or self-care (01) ==
LOC: EC 12:27 → 3SCARD 14:39
PROVIDERS: ADMIT Internal Medicine; ATTEND Internal Medicine
DX: R20.0 Anesthesia of skin (principal); I25.10 Atherosclerotic heart disease of native coronary artery without angina pectoris; J44.9 Chronic obstructive pulmonary disease, unspecified; K21.9 Gastro-esophageal reflux disease without esophagitis; E78.5 Hyperlipidemia, unspecified; F41.9 Anxiety disorder, unspecified; F17.210 Nicotine dependence, cigarettes, uncomplicated; M48.02 Spinal stenosis, cervical region; M50.31 Other cervical disc degeneration, high cervical region; I71.20 Thoracic aortic aneurysm, without rupture, unspecified; I08.1 Rheumatic disorders of both mitral and tricuspid valves; M47.812 Spondylosis without myelopathy or radiculopathy, cervical region; I10 Essential (primary) hypertension; I25.5 Ischemic cardiomyopathy; I25.2 Old myocardial infarction; Z87.440 Personal history of urinary (tract) infections; Z95.810 Presence of automatic (implantable) cardiac defibrillator; Z90.49 Acquired absence of other specified parts of digestive tract; Z95.1 Presence of aortocoronary bypass graft; Z95.5 Presence of coronary angioplasty implant and graft; Z80.0 Family history of malignant neoplasm of digestive organs; Z80.3 Family history of malignant neoplasm of breast; Z80.52 Family history of malignant neoplasm of bladder; Z86.73 Personal history of transient ischemic attack (TIA), and cerebral infarction without residual deficits; Z79.899 Other long term (current) drug therapy; Z79.82 Long term (current) use of aspirin; Z79.02 Long term (current) use of antithrombotics/antiplatelets; Z80.51 Family history of malignant neoplasm of kidney; Z95.2 Presence of prosthetic heart valve
CPT/HCPCS: 96365; 96366 ×2; 96372 ×2; 99285; 36415; 94640 ×6; 94760 ×3; 93005; 93306; 97116; 97162; 97166; 80061; 80053; 80048; 82550; 84484; 85025 ×2; 85610 ×2; 85730 ×2; 71046; 93880; 72125; 70450; G0378 ×4; S4990; J1644 ×3

== ENCOUNTER 2022-12-08 14:23 | Observation (INO) | payer MEDICARE, BC ==
--- NOTE | 2022-12-08 14:42 | ED ---
General Adult HPI - General Chief complaint: Neuro Symptoms/Deficit Stated complaint: POSS STROKE Time Seen by Provider: 12/08/22 14:27 Source: patient, EMS, RN notes reviewed Mode of arrival: EMS Limitations: no limitations - History of Present Illness Initial comments: Patient is a pleasant 82-year-old female presenting to the emergency department with concern for TIA. Patient states she had similar symptoms a month ago and that was a diagnosis. Patient states onset of symptoms was over an hour ago. Patient felt like her left arm was heavy. Patient states her is no difficulty moving it. Patient states her neighbor told her that her speech was off. Patient did not notice this. Patient is symptom-free at this time except for feeling slightly lightheaded. - Related Data Home Medications Medication Instructions Recorded Confirmed Cholecalciferol [Vitamin D3 (25 25 mcg PO DAILY 06/06/15 12/08/22 Mcg = 1000 Iu)] Atorvastatin [Lipitor] 80 mg PO HS 01/03/16 12/08/22 Cyanocobalamin (Vitamin B-12) 1,000 mcg PO DAILY 03/08/20 12/08/22 [Vitamin B-12] Budesonide [Pulmicort] 0.5 mg INHALATION RT-BID 10/02/21 12/08/22 calcium polycarbophiL [Fibercon] 625 mg PO DAILY 10/02/21 12/08/22 Previous Rx's Medication Instructions Recorded Pantoprazole [Protonix] 40 mg PO AC-BID #60 tab 10/09/21 carvediloL [Coreg] 3.125 mg PO BID-W/MEALS #60 tab 10/09/21 Acetaminophen Tab [Tylenol] 650 mg PO Q4HR PRN tab 03/05/22 Clopidogrel [Plavix] 75 mg PO DAILY #30 tab 03/05/22 Apixaban [Eliquis] 5 mg PO BID #60 tab 11/09/22 Allergies Allergy/AdvReac Type Severity Reaction Status Date / Time No Known Allergies Allergy Verified 12/08/22 15:49 Review of Systems ROS Statement: Those systems with pertinent positive or pertinent negative responses have been documented in the HPI. ROS Other: All systems not noted in ROS Statement are negative. Constitutional: Denies: fever Eyes: Denies: eye pain ENT: Denies: ear pain Respiratory: Denies: cough Cardiovascular: Denies: chest pain Endocrine: Denies: fatigue Gastrointestinal: Denies: abdominal pain Genitourinary: Denies: dysuria Musculoskeletal: Denies: back pain Skin: Denies: rash Neurological: Reports: as per HPI, paresthesias. Denies: headache, weakness Past Medical History Past Medical History: Coronary Artery Disease (CAD), COPD, CVA/TIA, GERD/Reflux, Hyperlipidemia, Hypertension, Myocardial Infarction (ME), Osteoarthritis (OA), Vascular Disorder Additional Past Medical History / Comment(s): UTI, 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, 02/2020 TIA, carotid stenosis with L carotid endartectomy, pt states she has had irregular heart beat in past but cannot recall type, aortic stenosis/regurgitation, vertigo, balance issues-uses walker, back pain/disc problems, benign colon polyp,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 Last Myocardial Infarction Date:: 2000 History of Any Multi-Drug Resistant Organisms: None Reported Past Surgical History: AICD, Appendectomy, Bowel Resection, Cholecystectomy, Coronary Bypass/CABG, Heart Catheterization With Stent, Hernia Repair, Orthopedic Surgery Additional Past Surgical History / Comment(s): Arch studies, 2000 PCI with stents, 2002 CABG-3 vessel, 2002 AICD, AICD gen changes, DFTs, 2002 L carotid endartectomy, bowel resection for benign flat polyp, abdominal hernia repair, L hip fracture with surgery, L arm benign lesion removed, colonoscopies/polyps, ALEXIS Past Anesthesia/Blood Transfusion Reactions: No Reported Reaction, Motion Sickness Additional Past Anesthesia/Blood Transfusion Reaction / Comment(s): woke up during battery replacement in defibrillator Date of Last Stent Placement:: 2000 Type of Cardiac Device: AICD Device Placement Date:: 2002- Lookback Past Psychological History: Anxiety Smoking Status: Current every day smoker - Past Family History Sister(s) Family Medical History: Cancer Additional Family Medical History / Comment(s): Sister had breast/bladder cancers. Son(s) Family Medical History: Cancer Additional Family Medical History / Comment(s): pancreatic cancer Father Family Medical History: Cancer Additional Family Medical History / Comment(s): Bowel cancer. Mother Family Medical History: Cancer Additional Family Medical History / Comment(s): Mother had bowel cancer twice and 2nd time metastasized to her kidney. General Exam Limitations: no limitations General appearance: alert, in no apparent distress Head exam: Present: atraumatic, normocephalic Eye exam: Present: normal appearance, PERRL, EOMI ENT exam: Present: normal oropharynx Neck exam: Present: normal inspection. Absent: tenderness, meningismus Respiratory exam: Present: normal lung sounds bilaterally Cardiovascular Exam: Present: regular rate, normal rhythm GI/Abdominal exam: Present: soft. Absent: tenderness Extremities exam: Present: normal inspection. Absent: pedal edema, calf tenderness Neurological exam: Present: alert, oriented X3, CN II-XII intact. Absent: motor sensory deficit Expanded Neurological exam: Present: protecting the airway Patient oriented to: Present: person, place, time Speech: Present: fluid speech Cranial nerves: EOM's Intact: Normal, Facial Sensation: Normal Sensory exam: Upper Extremity Light Touch: Normal, Lower Extremity Light Touch: Normal Motor strength exam: RUE: 5, LUE: 5, RLE: 5, LLE: 5 Eye Response: (4) open spontaneously Motor Response: (6) obeys commands Verbal Response: (5) oriented Psychiatric exam: Present: normal affect, normal mood Skin exam: Present: normal color Course Vital Signs 12/08/22 12/08/22 14:26 16:15 Temperature 97.9 F Pulse Rate 61 Respiratory 18 Rate Blood Pressure 163/143 155/105 O2 Sat by Pulse 95 Oximetry EKG Findings - EKG Results: EKG: interpreted by DAINA (Nonspecific ST-T), sinus rhythm, normal axis, normal QRS Medical Decision Making - Medical Decision Making Was pt. sent in by a medical professional or institution (, PA, LEATHER GRADER, urgent care, hospital, or long term...) When possible be specific @ -No Did you speak to anyone other than the patient for history (EMS, parent, family, police, friend...)? What history was obtained from this source @ -EMS helps provide history including recent visit Did you review nursing and triage notes (agree or disagree)? Why? @ -I reviewed and agree with nursing and triage notes Were old charts reviewed (outside hosp., previous admission, EMS record, old EKG, old radiological studies, urgent care reports/EKG's, long term records)? Report findings @ -Reviewed previous admission and chest x-ray Differential Diagnosis (chest pain, altered mental status, abdominal pain women, abdominal pain men, vaginal bleeding, weakness, fever, dyspnea, syncope, headache, dizziness, GI bleed, back pain, seizure, CVA, palpatations, mental health)? @ -Differential Weakness: Hypoglycemia, shock, sepsis, hyponatremia, anemia, infection, ME, ETOH, adverse medicine reaction, overdose, stroke, this is not meant to be an all-inclusive list. EKG interpreted by me (3pts min.). @ -As above X-rays interpreted by me (1pt min.). @ -Chest x-ray shows chronic changes, previous reviewed CT interpreted by me (1pt min.). @ -Report of chronic changes U/S interpreted by me (1pt. min.). @ -None done What testing was considered but not performed or refused? (CT, X-rays, U/S, labs)? Why? @ -None What meds were considered but not given or refused? Why? @ -None Did you discuss the management of the patient with other professionals (professionals i.e. , PA, LEATHER GRADER, lab, RT, psych nurse, social research assistant, space and missile operations, teacher, air defence officer, employment evaluator/case manager)? Give summary @ -Case was discussed with Dr. Pool, who will admit covering Dr. Huffman Was smoking cessation discussed for >3mins.? @ -No Was critical care preformed (if so, how long)? @ -No Were there social determinants of health that impacted care today? How? (Homelessness, low income, unemployed, alcoholism, drug addiction, transportation, low edu. Level, literacy, decrease access to med. care, halfway, rehab)? @ -No Was there de-escalation of care discussed even if they declined (Discuss DNR or withdrawal of care, Hospice)? DNR status @ -No What co-morbidities impacted this encounter? (DM, HTN, Smoking, COPD, CAD, Cancer, CVA, ARF, Chemo, Hep., AIDS, mental health diagnosis, sleep apnea, morbid obesity)? @ -None Was patient admitted / discharged? Hospital course, mention meds given and route, prescriptions, significant lab abnormalities, going to OR and other pertinent info. @ -Patient has neurological symptoms consistent with TIA, better at this time except for mild headache and lightheadedness. Patient updated on results and plan. Patient will be admitted with neurology consult Undiagnosed new problem with uncertain prognosis? @ -No Drug Therapy requiring intensive monitoring for toxicity (Heparin, Nitro, Insulin, Cardizem)? @ -No Were any procedures done? @ -No Diagnosis/symptom? @ -TIA Acute, or Chronic, or Acute on Chronic? @ -Acute Uncomplicated (without systemic symptoms) or Complicated (systemic symptoms)? @ -default Side effects of treatment? @ -No Exacerbation, Progression, or Severe Exacerbation? @ -No Poses a threat to life or bodily function? How? (Chest pain, USA, ME, pneumonia, PE, COPD, DKA, ARF, appy, cholecystitis, CVA, Diverticulitis, Homicidal, Suicidal, threat to staff... and all critical care pts) @ -No - Lab Data Result diagrams: 12/08/22 14:53 12/08/22 14:53 Lab Results 12/08/22 12/08/22 12/08/22 Range/Units 14:53 14:53 14:53 WBC 8.1 (3.8-10.6) k/uL RBC 4.28 (3.80-5.40) m/uL Hgb 13.0 (11.4-16.0) gm/dL Hct 39.2 (34.0-46.0) % MCV 91.6 (80.0-100.0) fL MCH 30.4 (25.0-35.0) pg MCHC 33.1 (31.0-37.0) g/dL RDW 13.2 (11.5-15.5) % Plt Count 170 (150-450) k/uL MPV 7.7 Neutrophils % 65 % Lymphocytes % 25 % Monocytes % 6 % Eosinophils % 2 % Basophils % 1 % Neutrophils # 5.3 (1.3-7.7) k/uL Lymphocytes # 2.0 (1.0-4.8) k/uL Monocytes # 0.5 (0-1.0) k/uL Eosinophils # 0.2 (0-0.7) k/uL Basophils # 0.0 (0-0.2) k/uL PT 10.7 (9.0-12.0) sec INR 1.0 (<1.2) APTT 31.0 H (22.0-30.0) sec Sodium 139 (137-145) mmol/L Potassium 4.3 (3.5-5.1) mmol/L Chloride 100 (98-107) mmol/L Carbon Dioxide 30 (22-30) mmol/L Anion Gap 9 mmol/L BUN 9 (7-17) mg/dL Creatinine 0.80 (0.52-1.04) mg/dL Est GFR (CKD-EPI)AfAm 81 (>60 ml/min/1.73 sqM) Est GFR (CKD-EPI)NonAf 70 (>60 ml/min/1.73 sqM) Glucose 107 H (74-99) mg/dL Calcium 10.0 (8.4-10.2) mg/dL Total Bilirubin 1.6 H (0.2-1.3) mg/dL AST 24 (14-36) U/L ALT 15 (4-34) U/L Alkaline Phosphatase 110 (38-126) U/L Creatine Kinase 72 (30-135) U/L Total Protein 6.9 (6.3-8.2) g/dL Albumin 4.5 (3.5-5.0) g/dL Disposition Clinical Impression: TIA (transient ischemic attack) Disposition: ADMITTED IP TO THIS HOSP Is patient prescribed a controlled substance at d/c from ED?: No Referrals: Nishant Huffman DO [Primary Care Provider] - 1-2 days Time of Disposition: 16:21
--- NOTE | 2022-12-08 15:02 | CT ---
EXAMINATION TYPE: CT brain wo con DATE OF EXAM: 12/08/2022 COMPARISON: 11/06/2022 HISTORY: 82-year-old female neurologic deficit, acute, stroke suspected, weakness, ams TECHNIQUE: Examination was done in axial plane without intravenous contrast. Coronal and sagittal r econstructions performed. CT DLP: 1102.4 mGycm Automated exposure control for dose reduction was used. FINDINGS: There is no evidence of acute intracranial hemorrhage, acute ischemic changes, mass, mass-effect, or extra-axial fluid collection. There is no effacement of cerebral sulci or basal subarachnoid cister ns. There is no hydrocephalus. There is no midline shift. Maciel-white matter distinction is preserv ed. Moderate to severe patchy white matter hypodensities in both cerebral hemispheres. Old infarct right thomas radiata and bilateral basal ganglionic lacunar infarcts. Benign basal ganglia calcifications n oted. Atherosclerotic calcifications in the carotid siphons. Paranasal sinuses and mastoid air cells well pneumatized. Orbits and globes are intact. IMPRESSION: Moderate to severe patchy burden of chronic small vessel ischemic disease. Old deep white matter infa rct involving the right thomas radiata. Also, old lacunar infarct involving the bilateral basal gangl ia. No acute intracranial abnormality seen.
[2022-12-08 15:16] LABS: Prothrombin Time 10.7 sec (9.0-12.0)
[2022-12-08 15:18] LABS: Albumin 4.5 g/dL (3.5-5.0); Potassium 4.3 mmol/L (3.5-5.1); Total Bilirubin 1.6 mg/dL (0.2-1.3); Total Protein 6.9 g/dL (6.3-8.2)
[2022-12-08 15:23] LABS: Basophils % (A) 1 %; Eosinophils # (A) 0.2 k/uL (0-0.7); Eosinophils % (A) 2 %; HCT 39.2 % (34.0-46.0); Lymphocytes % (A) 25 %; MCH 30.4 pg (25.0-35.0); MCHC 33.1 g/dL (31.0-37.0); MCV 91.6 fL (80.0-100.0); Mean Platelet Volume 7.7; Monocytes # (A) 0.5 k/uL (0-1.0); Monocytes % (A) 6 %; Neutrophils # (A) 5.3 k/uL (1.3-7.7); Neutrophils % (A) 65 %; Platelet Count 170 k/uL (150-450); RBC 4.28 m/uL (3.80-5.40); RDW 13.2 % (11.5-15.5); WBC 8.1 k/uL (3.8-10.6)
--- NOTE | 2022-12-08 15:54 | XR ---
EXAMINATION TYPE: XR chest 2V DATE OF EXAM: 12/08/2022 COMPARISON: 11/06/[address] 07/29/2022 HISTORY: 82-year-old female confusion, altered mental status, headache TECHNIQUE: PA and lateral views FINDINGS: Median sternotomy wires are present. Left anterior chest wall AICD generator with right atrial and ri ght ventricular leads. Coronary stent. Heart upper limits of normal in size. Ectatic/tortuous thoraci c aorta is similar. Some right paratracheal soft tissue prominence likely corresponds to vascular ect darrion as well. Mild hyperinflation. No consolidation or pleural effusion. Endovascular aortic valve re placement noted. IMPRESSION: Aneurysmal/ectatic thoracic aorta redemonstrated. There is COPD. Otherwise, no acute process seen.
[2022-12-08] MEDS ORDERED: ASPIRIN 325 MG TAB PO STA (16:21)
[2022-12-08] MEDS ORDERED: SODIUM CHLORIDE 0.9% 1,000 ML IV SCH (16:30)
[2022-12-08] MEDS ORDERED: ACETAMINOPHEN TAB 325 MG TAB PO PRN (19:48)
[2022-12-08] MEDS: carvediloL 3.125 MG TAB PO SCH (20:29)
[2022-12-08] MEDS: PANTOPRAZOLE 40 MG TABLET PO SCH (20:29)
[2022-12-08] MEDS: ATORVASTATIN 80 MG TAB PO SCH (20:29)
[2022-12-08] MEDS: APIXABAN 5 MG TAB PO SCH (20:29)
[2022-12-08] MEDS: BUDESONIDE 0.5 MG/2 ML NEBU INHALATION SCH (21:44)
--- NOTE | 2022-12-08 21:55 | P.HPIM ---
History of Present Illness H&P Date: 12/08/22 Chief Complaint: TIA History of presenting complaint: This is a very pleasant 82-year-old patient of Dr. Huffman. neurologist Dr. Cobb. Chronic stable medical conditions include hypertension, hyperlipidemia, herniated disc in the back, coronary artery disease with bypass. COPD February 2022: Dr. Alex Gross operated on symptomatic calcified tricuspid aortic stenosis. The valve was replaced with aortic valve prosthesis. On 11/06/2022: Patient presented here with left cheek left hand numbness with some difficulty in speech. Lasted for about 30-[address] brain showed chronic changes. Small old infarct in the left coronary radiata. Carotid Doppler unremarkable. Computed tomography scan cervical spine showed multiple level of DJD with central stenosis. Patient seen by Dr. Reena Abraham from orthopedic spine.: Patient's had complained of chronic neck pain rattling for some time. Has also seen pain management in the past. Due to follow-up with Dr. Hall outpatient. 2-D echo showed EF of 40-45%. Severe hypokinesis of the anteroapical and anteroseptal wall. With possible apical thrombus. Patient was sitting of the dining table. When she felt some numbness 10 laying in the hand. It progressed to the upper left arm. Left arm felt heavy. She li fted the left arm shook it a few times felt better. Patient told the ER at that unable further speech was a bit different. Patient did not notice this. No change in elevation swallowing or headache. No other signs. Symptoms lasted for about an hour. Review of systems: GEN.: [None] EYES: [None] HEENT: [None] NECK: [Chronic neck pain] RESPIRATORY: [None] CARDIOVASCULAR: [None] GASTROINTESTINAL: [None] GENITOURINARY: [None] MUSCULOSKELETAL: [Neck and back pain] LYMPHATICS: [None] HEMATOLOGICAL: [None] PSYCHIATRY: [None] NEUROLOGICAL: [None] Past medical history to include: Coronary artery disease, stroke, GERD, hypertension, hyperlipidemia, back pain with herniated disc carotid bypass in 2002 AICD, anxiety. COPD. CHF EF 40-45 %. Prosthetic aortic valve February 2022. Social history: Lives alone. Smoking since 1970 about a pack a day now down to a about 5 cigarettes a day. No alcohol Family history: Bowel cancer Physical examination: VITAL SIGNS: 97.8, 65, 17, 157/79, 97% room air GENERAL: BMI 26.6, sitting at the edge of the bed awake comfortable EYES: [Pupils equal. Conjunctiva pale l. HEENT: External appearance of nose and ears normal, oral cavity grossly normal. NECK: JVD not raised; masses not palpable. HEART: First and second heart sounds are normal; no edema. LUNGS: Respiratory rate normal; decreased breath sounds. ABDOMEN: Soft, nontender, liver spleen not palpable, no masses palpable. PSYCH: Alert and oriented x3; mood and affect normal. MUSCULOSKELETAL:No Clubbing/cyanosis;muscles-grossly intact. Evidence of OA NEUROLOGICAL: Cranials grossly intact for sensation grossly intact LYMPHATICS: No lymph nodes palpable [employer] INVESTIGATIONS, reviewed in the clinical context: White count 8.1 hemoglobin 13 platelets 170 potassium 4.3 creatinine 0.80 LDL [November 08] 106 EKG tracing personally reviewed by me-normal sinus rhythm. Nonspecific ST segment changes. CT brain: Moderate to severe patchy water to chronic small vessel ischemic cas[place] es. Old deep white matter infarct involving the right coronary radiata. Also order lacunar infarct involving bilateral basal ganglia. Recent testing: [October 2022] Cervical spine computed tomography scan showing multilevel DJD and spinal stenosis Carotid Doppler: Unremarkable 2-D echocardiogram [11/07/2022] possible apical thrombus. Bioprosthetic aortic valve with normal function. EF 40-45%. Hypokinesis Assessment and plan: -Possible TIA. Patient's symptoms lasted 1 hour. Left arm heaviness and some changes based on his by the neighbor. Patient on eliquis. Add baby aspirin. Consult neurology -COPD in a current smoker Pulmicort 0.5 mg twice a day. Albuterol when necessary -Chronic congestive heart failure exacerbation from systolic dysfunction EF 40- 45% %: From prior aortic stenosis Follow clinically -Prosthetic aortic valve -Chronic nicotine dependence patient cigarette smoker Nicotine patch -Hyperlipidemia Lipitor 80 mg daily at bedtime -Coronary artery disease with a bypass in 2002 and stent Lipitor, aspirin . 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 Hall from orthopedics follows -Primary osteoarthritis Tylenol when necessary -AICD Neurology consulted. Patient will follow-up with Dr. Hall outpatient. Discu ssed with patient. Home medications continued. Past Medical History Past Medical History: Atrial Fibrillation, Coronary Artery Disease (CAD), COPD, CVA/TIA, GERD/Reflux, Hyperlipidemia, Hypertension, Myocardial Infarction (MT), Osteoarthritis (OA), Vascular Disorder Additional Past Medical History / Comment(s): UTI, 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, 02/2020 TIA, TIA 10/2022, carotid stenosis with L carotid endartectomy, pt states she has had irregular heart beat in past but cannot recall type, aortic stenosis/regurgitation, vertigo, balance issues-uses walker, back pain/disc problems, benign colon polyp,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 Last Myocardial Infarction Date:: 2000 History of Any Multi-Drug Resistant Organisms: None Reported Past Surgical History: AICD, Appendectomy, Bowel Resection, Cholecystectomy, Coronary Bypass/CABG, Heart Catheterization With Stent, Hernia Repair, Orthopedic Surgery Additional Past Surgical History / Comment(s): Arch studies, 2000 PCI with stents, 2002 CABG-3 vessel, 2002 AICD, AICD gen changes, DFTs, 2002 L carotid endartectomy, bowel resection for benign flat polyp, abdominal hernia repair, L hip fracture with surgery, L arm benign lesion removed, colonoscopies/polyps, ALEXIS Past Anesthesia/Blood Transfusion Reactions: No Reported Reaction, Motion Sickness Additional Past Anesthesia/Blood Transfusion Reaction / Comment(s): woke up during battery replacement in defibrillator Date of Last Stent Placement:: 2000 Type of Cardiac Device: AICD Device Placement Date:: 2002- [employer] Past Psychological History: Anxiety Additional Psychological History / Comment(s): Pt resides alone. She uses a walker. She no longer drives, her granddaughter drives her. Smoking Status: Former smoker Past Alcohol Use History: None Reported Additional Past Alcohol Use History / Comment(s): Pt started smoking in 1969 and was a ppd smoker then cut down to 5 cigarettes a day and recently quit on 09/16 02/06. Past Drug Use History: None Reported Additional Drug Use History / Comment(s): . - Past Family History Sister(s) Family Medical History: Cancer Additional Family Medical History / Comment(s): Sister had breast/bladder cancers. Son(s) Family Medical History: Cancer Additional Family Medical History / Comment(s): pancreatic cancer Father Family Medical History: Cancer Additional Family Medical History / Comment(s): Bowel cancer. Mother Family Medical History: Cancer Additional Family Medical History / Comment(s): Mother had bowel cancer twice and 2nd time metastasized to her kidney. Medications and Allergies Home Medications Medication Instructions Recorded Confirmed Type Cholecalciferol [Vitamin D3 (25 25 mcg PO DAILY 06/06/15 12/08/22 History Mcg = 1000 Iu)] Atorvastatin [Lipitor] 80 mg PO HS 01/03/16 12/08/22 History Cyanocobalamin (Vitamin B-12) 1,000 mcg PO DAILY 03/08/20 12/08/22 History [Vitamin B-12] Budesonide [Pulmicort] 0.5 mg INHALATION RT-BID 10/02/21 12/08/22 History calcium polycarbophiL [Fibercon] 625 mg PO DAILY 10/02/21 12/08/22 History Pantoprazole [Protonix] 40 mg PO AC-BID #60 tab 10/09/21 12/08/22 Rx carvediloL [Coreg] 3.125 mg PO BID-W/MEALS #60 tab 10/09/21 12/08/22 Rx Acetaminophen Tab [Tylenol] 650 mg PO Q4HR PRN tab 03/05/22 12/08/22 Rx Clopidogrel [Plavix] 75 mg PO DAILY #30 tab 03/05/22 12/08/22 Rx Apixaban [Eliquis] 5 mg PO BID #60 tab 11/09/22 12/08/22 Rx Allergies Allergy/AdvReac Type Severity Reaction Status Date / Time No Known Allergies Allergy Verified 12/08/22 15:49 Physical Exam Vitals: Vital Signs Temp Pulse Pulse Resp BP BP Pulse Ox 12/08/22 19:10 97.8 F 65 17 157/79 97 12/08/22 17:00 163/87 94 L 12/08/22 16:34 66 18 163/87 94 L 12/08/22 16:15 155/105 12/08/22 16:06 96 12/08/22 14:26 97.9 F 61 18 163/143 95 Intake and Output 12/08/22 12/08/22 12/08/22 06:59 14:59 22:59 Other: Weight 68.039 kg 68.039 kg Results CBC & Chem 7: 12/08/22 14:53 12/08/22 14:53 Labs: Abnormal Lab Results - Last 24 Hours (Table) 12/08/22 12/08/22 Range/Units 14:53 14:53 APTT 31.0 H (22.0-30.0) sec Glucose 107 H (74-99) mg/dL Total Bilirubin 1.6 H (0.2-1.3) mg/dL Thrombosis Risk Factor Assmnt - Choose All That Apply Each Factor Represents 1 point: Abnormal pulmonary function (COPD), Obesity (BMI >25) Each Risk Factor Represents 3 Points: Age 75 years or older Thrombosis Risk Factor Assessment Total Risk Factor Score: 5 Thrombosis Risk Factor Assessment Level: High Risk
[2022-12-09] MEDS: carvediloL 3.125 MG TAB PO SCH ×2 (05:38→17:38)
[2022-12-09] MEDS: PANTOPRAZOLE 40 MG TABLET PO SCH ×2 (05:38→17:38)
[2022-12-09] MEDS: BUDESONIDE 0.5 MG/2 ML NEBU INHALATION SCH ×2 (07:36→21:41)
[2022-12-09 08:59] LABS: Chol/HDL Ratio 1.96 Ratio; LDL Cholesterol,Calculated 35.1 mg/dL (0.0-131.0)
[2022-12-09] MEDS ORDERED: ASPIRIN 81 MG PO SCH (09:00)
[2022-12-09] MEDS ORDERED: CLOPIDOGREL 75 MG TAB PO SCH (09:00)
[2022-12-09] MEDS ORDERED: ASPIRIN 325 MG TAB PO SCH (09:00)
[2022-12-09] MEDS: APIXABAN 5 MG TAB PO SCH ×2 (09:14→19:55)
[2022-12-09] MEDS: CHOLECALCIFEROL 25 MCG (1000 IU) TABLET PO SCH (09:14)
[2022-12-09] MEDS: CYANOCOBALAMIN 500 MCG TAB PO SCH (09:16)
--- NOTE | 2022-12-09 14:08 | P.CNNES ---
History of Present Illness Consult date: 12/09/22 Requesting physician: Jone Lyons Reason for Consult: tia History of Present Illness: This is an 82-year-old woman with history of multiple TIAs and most recent one was about month ago, hypertension, left CVA in 2000, AICD who presented to the emergency department because yesterday in the morning despite afternoon she felt she is having left arm weakness and felt her left arm and hand was numb/sleepy. The episode lasted for about an hour to an hour and a half. She stated that she is on Ahlquist as well as Plavix and she's been compliant taking the medication. She had a similar presentation the about a month ago and she was seen by Dr. Graham (Neuro-Hospitalist) and stated probable TIA manifesting with numbness over left lower facial left arm and slurred speech that resolved within 20-30 minutes. On a 2-D echo last time it is revealed as possible apical thrombus. As well as she had to ask aneurysm. That ALEXIS is reported as severe aortic stenosis. Ischemic cardiomyopathy with severe left ventricular dysfunction of ejection fraction of 30-35%. Severe aortic regurgitation. Was reported on prior that she is to undergo cardiac cath and will be referred for aortic valve replacement. As stated earlier she was seen about a month ago I our neurology team. Please refer to our notes further details. Some of the workup during this hospital visit consisted of: CBC with differential and chemistry panels are unremarkable Lipid panel is triglyceride 109, cholesterol 116, LDLs 35 and HDL is 59. CT of the head is reported as moderate to severe patchy burden of chronic small vessel ischemic disease. Old deep white matter infarct involving the right thomas radiata. Also old lacunar infarct involving bilateral basal ganglia. No acute intracranial abnormality seen. I personally reviewed the CT and I agree with the report. Regarding the basal ganglia is worse over the left than the right. Review of Systems Review of system: The 12 point system was reviewed and apparent positive and negative per HPI. Past Medical History Past Medical History: Atrial Fibrillation, Coronary Artery Disease (CAD), COPD, CVA/TIA, GERD/Reflux, Hyperlipidemia, Hypertension, Myocardial Infarction (MT), Osteoarthritis (OA), Vascular Disorder Additional Past Medical History / Comment(s): UTI, 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, 02/2020 TIA, TIA 10/2022, carotid stenosis with L carotid endartectomy, pt states she has had irregular heart beat in past but cannot recall type, aortic stenosis/regurgitation, vertigo, balance issues-uses walker, back pain/disc problems, benign colon polyp,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 Last Myocardial Infarction Date:: 2000 History of Any Multi-Drug Resistant Organisms: None Reported Past Surgical History: AICD, Appendectomy, Bowel Resection, Cholecystectomy, Coronary Bypass/CABG, Heart Catheterization With Stent, Hernia Repair, Orthopedic Surgery Additional Past Surgical History / Comment(s): Arch studies, 2000 PCI with sten ts, 2002 CABG-3 vessel, 2002 AICD, AICD gen changes, DFTs, 2002 L carotid endartectomy, bowel resection for benign flat polyp, abdominal hernia repair, L hip fracture with surgery, L arm benign lesion removed, colonoscopies/polyps, ALEXIS Past Anesthesia/Blood Transfusion Reactions: No Reported Reaction, Motion Sickness Additional Past Anesthesia/Blood Transfusion Reaction / Comment(s): woke up during battery replacement in defibrillator Date of Last Stent Placement:: 2000 Type of Cardiac Device: AICD Device Placement Date:: 2002- [employer] Past Psychological History: Anxiety Additional Psychological History / Comment(s): Pt resides alone. She uses a walker. She no longer drives, her granddaughter drives her. Smoking Status: Former smoker Past Alcohol Use History: None Reported Additional Past Alcohol Use History / Comment(s): Pt started smoking in 1969 and was a ppd smoker then cut down to 5 cigarettes a day and recently quit on 10/02/21. Past Drug Use History: None Reported Additional Drug Use History / Comment(s): . - Past Family History Sister(s) Family Medical History: Cancer Additional Family Medical History / Comment(s): Sister had breast/bladder cancers. Son(s) Family Medical History: Cancer Additional Family Medical History / Comment(s): pancreatic cancer Father Family Medical History: Cancer Additional Family Medical History / Comment(s): Bowel cancer. Mother Family Medical History: Cancer Additional Family Medical History / Comment(s): Mother had bowel cancer twice and 2nd time metastasized to her kidney. Medications and Allergies Home Medications Medication Instructions Recorded Confirmed Type Cholecalciferol [Vitamin D3 (25 25 mcg PO DAILY 06/06/15 12/08/22 History Mcg = 1000 Iu)] Atorvastatin [Lipitor] 80 mg PO HS 01/03/16 12/08/22 History Cyanocobalamin (Vitamin B-12) 1,000 mcg PO DAILY 03/08/20 12/08/22 History [Vitamin B-12] Budesonide [Pulmicort] 0.5 mg INHALATION RT-BID 10/02/21 12/08/22 History calcium polycarbophiL [Fibercon] 625 mg PO DAILY 10/02/21 12/08/22 History Pantoprazole [Protonix] 40 mg PO AC-BID #60 tab 10/09/21 12/08/22 Rx carvediloL [Coreg] 3.125 mg PO BID-W/MEALS #60 tab 10/09/21 12/08/22 Rx Acetaminophen Tab [Tylenol] 650 mg PO Q4HR PRN tab 03/05/22 12/08/22 Rx Clopidogrel [Plavix] 75 mg PO DAILY #30 tab 03/05/22 12/08/22 Rx Apixaban [Eliquis] 5 mg PO BID #60 tab 11/09/22 12/08/22 Rx Aspirin 81 mg PO DAILY tab 12/09/22 Rx Allergies Allergy/AdvReac Type Severity Reaction Status Date / Time No Known Allergies Allergy Verified 12/08/22 15:49 Physical Examination - Vital Signs Vital Signs: Vital Signs Temp Pulse Pulse Resp BP BP Pulse Ox 12/09/22 11:47 98.3 F 63 16 137/76 96 12/09/22 07:52 66 12/09/22 07:36 66 96 12/09/22 07:00 98.0 F 66 16 151/80 96 12/09/22 02:12 97.8 F 63 17 143/78 96 12/08/22 21:52 68 12/08/22 21:47 68 97 12/08/22 20:00 65 17 12/08/22 19:10 97.8 F 65 17 157/79 97 12/08/22 17:00 163/87 94 L 12/08/22 16:34 66 18 163/87 94 L 12/08/22 16:15 155/105 12/08/22 16:06 96 12/08/22 14:26 97.9 F 61 18 163/143 95 FiO2 12/09/22 11:47 12/09/22 07:52 12/09/22 07:36 12/09/22 07:00 12/09/22 02:12 12/08/22 21:52 12/08/22 21:47 21 12/08/22 20:00 12/08/22 19:10 12/08/22 17:00 12/08/22 16:34 12/08/22 16:15 12/08/22 16:06 12/08/22 14:26 Intake and Output 12/08/22 12/09/22 12/09/22 22:59 06:59 14:59 Intake Total 118 Balance 118 Intake: Oral 118 Other: Voiding Method Toilet # Voids 2 2 Weight 68.039 kg GENERAL: The patient is lying in bed and is not in acute distress. CHEST:No edema noted in uppers or lowers. LUNG: Not labored breathing. NEUROLOGICAL: Higher mental function: The patient is awake, alert, oriented to self, place and time. Patient is following commands. No aphasia and no neglect. Cranial nerves: The pupils are round, equal and reactive to light and accommodation. Visual melendez are full to confrontation throughout. Extraocular movement is intact no nystagmus is noted. Facial sensation is normal to touch throughout. The facial strength is normal throughout. Hearing is normal bilaterally to hand rub. Tongue is midline and moved [id number] without any difficulty. No dysarthria is noted. Shoulder shrug is normal bilaterally. Motor: The strength is 5 over 5 throughout. Normal tone and bulk. Cerebellum: Normal finger to nose bilaterally. Sensation: Sensation is normal to touch throughout. Reflexes (right/left): 2+ throughout. Plantars are mute bilaterally. Results - Laboratory Findings CBC and BMP: 12/08/22 14:53 12/08/22 14:53 Abnormal Lab Findings: Abnormal Labs 12/08/22 12/08/22 14:53 14:53 APTT 31.0 H Glucose 107 H Total Bilirubin 1.6 H Assessment and Plan Assessment: Transient episode of left upper extremity weakness with numbness. Probable TIA. Cannot exclusively rule out seizure versus other underlying cardiac risk factors since the patient is having recurrent episodes. Multiple episodes of TIA and the most recent one was about a month ago manifesting with transient numbness of the left lower facial, left arm and slurred speech AICD History of coronary artery disease with prior CABG History of severe aortic stenosis status post TAVR History of Thoracic aneurysm History of left CEA in 2000 History of paroxysmal atrial fibrillation on Eliquis Chronic tobacco and smokes about 3 cigarettes a day Underlying history of hypertension Plan: I ordered MRI of the brain as well as MRA of the neck and am not sure if she her AICD is compatible Ordered carotid duplex I ordered a routine EEG since the patient has multiple episodes to rule out any underlying seizure or epileptiform discharges Patient was resume on her home dose of Eliquis 5mg bid and Plavix 75mg daily. She was placed on aspirin 81 mg daily by the primary team and she stated that she was not taking aspirin. I am concerned the dual antiplatelet in addition to the anticoagulation increases risk for bleed therefore I stop aspirin. Will defer use of ASA to primary team. If the investigation the reveals most likely this is TIA then I will recommend stopping Plavix since failed and starting Brilinta. She is resumed on home medication of Lipitor 80 mg daily at bedtime for secondary stroke prophylaxis as well as her significant cardiac issue. 2-D echo is ordered PT OT and FINANCIAL PLANNING ANALYST are consulted Continue neuro checks On cardiac monitoring We'll defer the rest of the medical management to the primary team For DVT prophylaxis patient is on Eliquis. Thank you for the consultation. Time with Patient: Greater than 30
--- NOTE | 2022-12-09 16:00 | US ---
EXAMINATION TYPE: US carotid duplex BILAT DATE OF EXAM: 12/09/2022 Exam done portable COMPARISON: Carotid ultrasound November 07, 2022 CLINICAL INDICATION: Female, 82 years old with history of stroke; TECHNIQUE: Carotid duplex ultrasound examination. Indirect Doppler criteria was utilized. FINDINGS: EXAM MEASUREMENTS: RIGHT: Peak Systolic Velocity (PSV) cm/sec ----- Right CCA: 64.3 ----- Right ICA: 92.9 ----- Right ECA: 64.7 ICA/CCA ratio: 1.4 RIGHT: End Diastole cm/sec ----- Right CCA: 10.0 ----- Right ICA: 21.1 ----- Right ECA: 0.0 LEFT: Peak Systolic Velocity (PSV) cm/sec ----- Left CCA: 61.2 ----- Left ICA: 78.9 ----- Left ECA: 52.7 ICA/CCA ratio: 1.3 LEFT: End Diastole cm/sec ----- Left CCA: 10.8 ----- Left ICA: 19.3 ----- Left ECA: 0.0 VERTEBRALS (direction of flow): Right Vertebral: Antegrade Left Vertebral: Antegrade Rhythm: Normal No significant stenosis IMPRESSION: No significant stenosis in common or internal carotid arteries bilaterally. No significa nt change from recent ultrasound. Criteria for Assigning % of Stenosis / Diameter reduction (Estimation based on the indirect measurements of the internal carotid artery velocities (ICA PSV). 1. Normal (no stenosis)=ICA PSV < 125 cm/s: ratio < 2.0: ICA EDV<40 cm/s. 2. Less than 50% stenosis=ICA PSV < 125 cm/s: ratio < 2.0: ICA EDV<40 cm/s. 3. 50 to 69% stenosis=ICA PSV of 125 to 230 cm/s: ration 2.0 ? 4.0: ICA EDV 40-100 cm/s. 4. Greater than 70% stenosis to near occlusion= ICA PSV > 230 cm/s: ratio > 4.0: ICA EDV > 100 cm/s. 5. Near occlusion= ICA PSV velocities may be low or undetectable: variable ratio and ICA EDV. 6. Total occlusion=unable to detect flow.
--- NOTE | 2022-12-09 19:38 | EEG ---
ELECTROENCEPHALOGRAM REPORT CLINICAL HISTORY: This is an 82-year-old woman, who presented because of recurrent episode of left-sided weakness and numbness over upper extremity. The video EEG is obtained to evaluate for seizure epileptiform activity. RELEVANT MEDICATION: The patient is not on any antiepileptic drugs. EEG TYPE: A routine 21-channel EEG is performed with video using the 10/20 electrode placement system. DESCRIPTION: Wakefulness is only obtained. During awake state, the posterior-dominant rhythm consists of [id number] voltage of 7 to 7.5 hertz activity that is well modulated and well sustained. There is no physiological stage 2 sleep architecture. There is no focal slowing. There is a significant myogenic artifact over the right protestant region as well as moderate amount over the left protestant region. Interictal and ictal: There is questionable rhythmicity in left temporal region without any evolution and that is seen throughout the study, but is somewhat obscured by myogenic artifact. No clear seizure seen or clear epileptiform discharges. ACTIVATION PROCEDURE: Photic stimulation did not evoke a posterior driving response. There is no abnormality during the photic stimulation. Hyperventilation is not performed. CLINICAL INTERPRETATION: This is an abnormal routine EEG. The background slowing is suggestive of mild encephalopathy. Otherwise, there is no focal slowing. There is questionable rhythmicity over the entire left temporal region throughout the study without any evolution, also some is obscured because myogenic artifact. Otherwise, there is no clear seizure or epileptiform discharges seen. Recommend a prolonged EEG and that can be considered as an outpatient. Clinical correlation is recommended. SOHAM / BERNARDA: [id number] / EDUARDO
[2022-12-09] MEDS: ATORVASTATIN 80 MG TAB PO SCH (19:55)
--- NOTE | 2022-12-09 20:04 | P.PN ---
Progress Note - Text Progress Note Date: 12/09/22 Chief Complaint: TIA History of presenting complaint: This is a very pleasant 82-year-old patient of Dr. Huffman. neurologist Dr. Cobb. Chronic stable medical conditions include hypertension, hyperlipidemia, herniated disc in the back, coronary artery disease with bypass. COPD February 2022: Dr. Alex Gross operated on symptomatic calcified tricuspid aortic stenosis. The valve was replaced with aortic valve prosthesis. On 11/06/2022: Patient presented here with left cheek left hand numbness with some difficulty in speech. Lasted for about 30-[address] brain showed chronic changes. Small old infarct in the left coronary radiata. Carotid Doppler unremarkable. Computed tomography scan cervical spine showed multiple level of DJD with central stenosis. Patient seen by Dr. Reena Abraham from orthopedic spine.: Patient's had complained of chronic neck pain rattling for some time. Has also seen pain management in the past. Due to follow-up with Dr. Hall outpatient. 2-D echo showed EF of 40-45%. Severe hypokinesis of the anteroapical and anteroseptal wall. With possible apical thrombus. Patient was sitting of the dining table. When she felt some numbness 10 laying in the hand. It progressed to the upper left arm. Left arm felt heavy. She lifted the left arm shook it a few times felt better. Patient told the ER at that unable further speech was a bit different. Patient did not notice this. No change in elevation swallowing or headache. No other signs. Symptoms lasted for about an hour. 12/09: Patient's had no recurrence of symptoms. No focal neuro symptoms. Patient is scheduled to follow with Dr. Abraham outpatient. Seen by neurology. Awaiting testing ordered by him to be completed. Active Medications Acetaminophen (Acetaminophen Tab 325 Mg Tab) 650 mg PO Q4HR PRN PRN Reason: Fever And/ Or Mild Pain (1-3) Last Admin: 12/08/22 20:28 Dose: 650 mg Apixaban (Apixaban 5 Mg Tab) 5 mg PO BID AYLIN; Protocol Last Admin: 12/09/22 19:55 Dose: 5 mg Atorvastatin Calcium (Atorvastatin 80 Mg Tab) 80 mg PO HS AYLIN Last Admin: 12/09/22 19:55 Dose: 80 mg Budesonide (Budesonide 0.5 Mg/2 Ml Nebu) 0.5 mg INHALATION RT-BID [facility] Last Admin: 12/09/22 07:36 Dose: 0.5 mg Calcium Polycarbophil (Calcium Polycarbophil 625 Mg Tab) 625 mg PO DAILY [facility] Last Admin: 12/09/22 09:16 Dose: 625 mg Carvedilol (Carvedilol 3.125 Mg Tab) 3.125 mg PO BID-W/MEALS [facility] Last Admin: 12/09/22 17:38 Dose: 3.125 mg Cholecalciferol (Cholecalciferol 25 Mcg (1000 Iu) Tablet) 25 mcg PO DAILY [facility] Last Admin: 12/09/22 09:14 Dose: 25 mcg Clopidogrel Bisulfate (Clopidogrel 75 Mg Tab) 75 mg PO DAILY [facility] Cyanocobalamin (Cyanocobalamin 500 Mcg Tab) 1,000 mcg PO DAILY [facility] Last Admin: 12/09/22 09:16 Dose: 1,000 mcg Pantoprazole Sodium (Pantoprazole 40 Mg Tablet) 40 mg PO AC-BID [facility] Last Admin: 12/09/22 17:38 Dose: 40 mg Past medical history to include: Coronary artery disease, stroke, GERD, hypertension, hyperlipidemia, back pain with herniated disc carotid bypass in 2002 AICD, anxiety. COPD. CHF EF 40-45 %. Prosthetic aortic valve February 2022. Social history: Lives alone. Smoking since 1970 about a pack a day now down to a about 5 cigarettes a day. No alcohol Family history: Bowel cancer Physical examination: VITAL SIGNS: 98.3, 63, 16, 137/76, 96% room air GENERAL: BMI 26.6, sitting up in a chair, comfortable EYES: [Pupils equal. Conjunctiva pale l. HEENT: External appearance of nose and ears normal, oral cavity grossly normal. NECK: JVD not raised; masses not palpable. HEART: First and second heart sounds are normal; no edema. LUNGS: Respiratory rate normal; decreased breath sounds. ABDOMEN: Soft, nontender, liver spleen not palpable, no masses palpable. PSYCH: Alert and oriented x3; mood and affect normal. MUSCULOSKELETAL:No Clubbing/cyanosis;muscles-grossly intact. Evidence of OA NEUROLOGICAL: Cranials grossly intact for sensation grossly intact INVESTIGATIONS, reviewed in the clinical context: EEG: No seizure activity Carotid Doppler: No significant stenosis White count 8.1 hemoglobin 13 platelets 170 potassium 4.3 creatinine 0.80 LDL [November 08] 106 EKG tracing personally reviewed by me-normal sinus rhythm. Nonspecific ST segment changes. CT brain: Moderate to severe patchy water to chronic small vessel ischemic changes. Old deep white matter infarct involving the right coronary radiata. Also order lacunar infarct involving bilateral basal ganglia. Recent testing: [October 2022] Cervical spine computed tomography scan showing multilevel DJD and spinal stenosis Carotid Doppler: Unremarkable 2-D echocardiogram [11/07/2022] possible apical thrombus. Bioprosthetic aortic valve with normal function. EF 40-45%. Hypokinesis Assessment and plan: -Possible TIA. Patient's symptoms lasted 1 hour. Left arm heaviness and some changes based on his by the neighbor. eliquis. Brillinta ordered by neurology. Pending 2-D echo. -COPD in a current smoker Pulmicort 0.5 mg twice a day. Albuterol when necessary -Possible left ventricle apical thrombus from echocardiogram October 2022 On eliquis -Chronic congestive heart failure exacerbation from systolic dysfunction EF 40- 45% %: From prior aortic stenosis Follow clinically -Prosthetic aortic valve -Chronic nicotine dependence patient cigarette smoker Nicotine patch -Hyperlipidemia Lipitor 80 mg daily at bedtime -Coronary artery disease with a bypass in 2002 and stent Lipitor, aspirin . 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 Hall from orthopedics follows -Primary osteoarthritis Tylenol when necessary -AICD Pending 2-D echocardiogram. Other medications to continue. Possibly discharge tomorrow.
[2022-12-09] MEDS ORDERED: TICAGRELOR 90 MG TAB PO SCH (21:00)
[2022-12-10] MEDS: PANTOPRAZOLE 40 MG TABLET PO SCH (06:13)
[2022-12-10] MEDS: carvediloL 3.125 MG TAB PO SCH (06:13)
[2022-12-10 08:02] VITALS: BP 148/84; PULSE 65; RESP 16; TEMP 98
[2022-12-10] MEDS ORDERED: CLOPIDOGREL 75 MG TAB PO SCH (09:00)
[2022-12-10] MEDS: BUDESONIDE 0.5 MG/2 ML NEBU INHALATION SCH (09:17)
[2022-12-10] MEDS: APIXABAN 5 MG TAB PO SCH (09:48)
[2022-12-10] MEDS: CHOLECALCIFEROL 25 MCG (1000 IU) TABLET PO SCH (09:48)
[2022-12-10] MEDS: CYANOCOBALAMIN 500 MCG TAB PO SCH (09:48)
--- NOTE | 2022-12-10 13:46 | P.PN ---
Subjective Progress Note Date: 12/10/22 The patient seen at bedside and she feels she is back to baseline. Denies of any further weakness or numbness. Objective - Vital Signs Vital signs: Vital Signs Temp 98.0 F 12/10/22 07:00 Pulse 65 12/10/22 07:00 Resp 16 12/10/22 07:00 BP 148/84 12/10/22 07:00 Pulse Ox 95 12/10/22 07:00 FiO2 21 12/08/22 21:47 Intake & Output 12/09/22 12/10/22 12/10/22 18:59 06:59 18:59 Intake Total 118 118 Balance 118 118 Intake: Oral 118 118 Other: Voiding Method Toilet # Voids 1 2 - Exam GENERAL: The patient is lying in bed and is not in acute distress. NEUROLOGICAL: Higher mental function: The patient is awake, alert, oriented to self, place and time. Patient is following commands. No aphasia and no neglect. Cranial nerves: The pupils are round, equal and reactive to light and accommodation. Visual melendez are full to confrontation throughout. Extraocular movement is intact no nystagmus is noted. Facial sensation is normal to touch throughout. The facial strength is normal throughout. Hearing is normal bilaterally to hand rub. Tongue is midline and moved [id number] without any difficulty. No dysarthria is noted. Shoulder shrug is normal bilaterally. Motor: The strength is 5 over 5 throughout. Normal tone and bulk. Cerebellum: Normal finger to nose bilaterally. Sensation: Sensation is normal to touch throughout. Reflexes (right/left): 2+ throughout. Plantars are mute bilaterally. Some of the workup during this hospital visit consisted of: CBC with differential and chemistry panels are unremarkable Lipid panel is triglyceride 109, cholesterol 116, LDLs 35 and HDL is 59. CT of the head is reported as moderate to severe patchy burden of chronic small vessel ischemic disease. Old deep white matter infarct involving the right thomas radiata. Also old lacunar infarct involving bilateral basal ganglia. No acute intracranial abnormality seen. I personally reviewed the CT and I agree with the report. Regarding the basal ganglia is worse over the left than the right. Carotid duplex is reported as no significant stenosis in the common or internal carotid artery bilaterally. No significant change from recent ultrasound. Routine EEG is abnormal. The brachial slowing suggestive of mild encephalopathy. Otherwise there is no focal slowing. There is questionable rhythmicity over the entire left temporal region throughout the study without any evolution also there is some OBSCURATION because of myogenic artifact. Otherwise there is no clear seizure or epileptiform discharges seen. Recommend prolonged EEG and that can be considered as an outpatient. - Labs CBC & Chem 7: 12/08/22 14:53 12/08/22 14:53 Assessment and Plan Assessment: Transient episode of left upper extremity weakness with numbness. Probable TIA. Cannot exclusively rule out seizure versus other underlying cardiac risk factor s since the patient is having recurrent episodes. On EEG had questionable rhythmicity over the entire left temporal without evolution and no clear seizure or discharges. Multiple episodes of TIA and the most recent one was about a month ago manifesting with transient numbness of the left lower facial, left arm and slurred speech AICD History of coronary artery disease with prior CABG History of severe aortic stenosis status post TAVR History of Thoracic aneurysm History of left CEA in 2000 History of paroxysmal atrial fibrillation on Eliquis Chronic tobacco and smokes about 3 cigarettes a day Underlying history of hypertension Plan: Routine EEG is abnormal. The brachial slowing suggestive of mild encephalopathy. Otherwise there is no focal slowing. There is questionable rhythmicity over the entire left temporal region throughout the study without any evolution also there is some OBSCURATION because of myogenic artifact. Otherwise there is no clear seizure or epileptiform discharges seen. Recommend prolonged EEG and that can be considered as an outpatient. Therefore will pursue with 2.5 hour EEG and that is to be coordinated as outpatient by technical services rep. Patient was resume on her home dose of Eliquis 5mg bid and Plavix 75mg daily. If 2.5 hour EEG is negative and continues to have further focal transient deficit, consider stopping Plavix and start Brilinta. She is resumed on home medication of Lipitor 80 mg daily at bedtime for secondary stroke prophylaxis as well as her significant cardiac issue. PT OT and EXPORT FREIGHT CLERK are consulted Continue neuro checks On cardiac monitoring We'll defer the rest of the medical management to the primary team For DVT prophylaxis patient is on Eliquis. Patient to follow-up with a neurologist as outpatient within 1-2 weeks. She stated that she is to follow up with Dr. Cobb and she'll continue to follow up with him. The plan was discussed with the patient and her nurse There is no additional workup. Time with Patient: Less than 30
--- NOTE | 2022-12-10 18:02 | P.DS ---
Providers Date of admission: 12/08/22 16:21 Expected date of discharge: 12/10/22 Attending physician: Deacon Pool Consults: 12/08/22 16:22 Consult Physician Routine Consulting Provider: Adams Yang Consult Reason/Comments: tia Do you want consulting provider notified?: Yes Primary care physician: [facility] Course: Chief Complaint: TIA History of presenting complaint: This is a very pleasant 82-year-old patient of Dr. Huffman. neurologist Dr. Cobb. Chronic stable medical conditions include hypertension, hyperlipidemia, herniated disc in the back, coronary artery disease with bypass. COPD February 2022: Dr. Alex Gross operated on symptomatic calcified tricuspid aortic stenosis. The valve was replaced with aortic valve prosthesis. On 11/06/2022: Patient presented here with left cheek left hand numbness with some difficulty in speech. Lasted for about 30-[address] brain showed chronic changes. Small old infarct in the left coronary radiata. Carotid Doppler unremarkable. Computed tomography scan cervical spine showed multiple level of DJD with central stenosis. Patient seen by Dr. Reena Abraham from orthopedic spine.: Patient's had complained of chronic neck pain rattling for some time. Has also seen pain management in the past. Due to follow-up with Dr. Hall outpatient. 2-D echo showed EF of 40-45%. Severe hypokinesis of the anteroapical and anteroseptal wall. With possible apical thrombus. Patient was sitting of the dining table. When she felt some numbness 10 laying in the hand. It progressed to the upper left arm. Left arm felt heavy. She lifted the left arm shook it a few times felt better. Patient told the ER at that unable further speech was a bit different. Patient did not notice this. No change in elevation swallowing or headache. No other signs. Symptoms lasted for about an hour. 12/09: Patient's had no recurrence of symptoms. No focal neuro symptoms. Patient is scheduled to follow with Dr. Abraham outpatient. Seen by neurology. Awaiting testing ordered by him to be completed. December 10: Patient was seen by Dr. yang from neurology. For outpatient 2.5 hour EEG. Patient does follow with neurologist Dr. Cobb. Plavix added. Patient also with follow-up with orthopedics Dr. Abraham. Discussed Past medical history to include: Coronary artery disease, stroke, GERD, hypertension, hyperlipidemia, back pain with herniated disc carotid bypass in 2002 AICD, anxiety. COPD. CHF EF 40-45 %. Prosthetic aortic valve February 2022. Social history: Lives alone. Smoking since 1970 about a pack a day now down to a about 5 cigarettes a day. No alcohol Family history: Bowel cancer Physical examination: VITAL SIGNS: 98, 65, 16, 148/84, 95% room air GENERAL: BMI 26.6, sitting edge of the bed comfortable EYES: [Pupils equal. Conjunctiva pale l. HEENT: External appearance of nose and ears normal, oral cavity grossly normal. NECK: JVD not raised; masses not palpable. HEART: First and second heart sounds are normal; no edema. LUNGS: Respiratory rate normal; decreased breath sounds. ABDOMEN: Soft, nontender, liver spleen not palpable, no masses palpable. PSYCH: Alert and oriented x3; mood and affect normal. MUSCULOSKELETAL:No Clubbing/cyanosis;muscles-grossly intact. Evidence of OA NEUROLOGICAL: Cranials grossly intact for sensation grossly intact INVESTIGATIONS, reviewed in the clinical context: EEG: No seizure activity Carotid Doppler: No significant stenosis White count 8.1 hemoglobin 13 platelets 170 potassium 4.3 creatinine 0.80 LDL [November 08] 106 EKG tracing personally reviewed by me-normal sinus rhythm. Nonspecific ST segment changes. CT brain: Moderate to severe patchy water to chronic small vessel ischemic changes. Old deep white matter infarct involving the right coronary radiata. Also order lacunar infarct involving bilateral basal ganglia. Recent testing: [October 2022] Cervical spine computed tomography scan showing multilevel DJD and spinal stenosis Carotid Doppler: Unremarkable 2-D echocardiogram [11/07/2022] possible apical thrombus. Bioprosthetic aortic valve with normal function. EF 40-45%. Hypokinesis Assessment and plan: -Probable TIA. Patient's symptoms lasted 1 hour. Left arm heaviness and some changes based on his by the neighbor. eliquis. Plavix added by neurology. Carotid Doppler unremarkable -COPD in a current smoker Pulmicort 0.5 mg twice a day. Albuterol when necessary -Possible left ventricle apical thrombus from echocardiogram October 2022 On eliquis -Chronic congestive heart failure exacerbation from systolic dysfunction EF 40- 45% %: From prior aortic stenosis Follow clinically -Prosthetic aortic valve -Chronic nicotine dependence patient cigarette smoker Nicotine patch -Hyperlipidemia Lipitor 80 mg daily at bedtime -Coronary artery disease with a bypass in 2002 and stent Lipitor, aspirin . 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 Abraham from orthopedics follows -Primary osteoarthritis Tylenol when necessary -AICD Disposition: Home Plan - Discharge Summary New Discharge Prescriptions: Continue Cholecalciferol [Vitamin D3 (25 Mcg = 1000 Iu)] 25 mcg PO DAILY Atorvastatin [Lipitor] 80 mg PO HS Cyanocobalamin (Vitamin B-12) [Vitamin B-12] 1,000 mcg PO DAILY calcium polycarbophiL [Fibercon] 625 mg PO DAILY Budesonide [Pulmicort] 0.5 mg INHALATION RT-BID Pantoprazole [Protonix] 40 mg PO AC-BID #60 tab Clopidogrel [Plavix] 75 mg PO DAILY #30 tab carvediloL [Coreg] 3.125 mg PO BID-W/MEALS #60 tab Acetaminophen Tab [Tylenol] 650 mg PO Q4HR PRN tab PRN Reason: Fever And/ Or Mild Pain (1-3) Apixaban [Eliquis] 5 mg PO BID #60 tab Discharge Medication List Cholecalciferol [Vitamin D3 (25 Mcg = 1000 Iu)] 25 mcg PO DAILY 06/06/15 [History] Atorvastatin [Lipitor] 80 mg PO HS 01/03/16 [History] Cyanocobalamin (Vitamin B-12) [Vitamin B-12] 1,000 mcg PO DAILY 03/08/20 [History] Budesonide [Pulmicort] 0.5 mg INHALATION RT-BID 10/02/21 [History] calcium polycarbophiL [Fibercon] 625 mg PO DAILY 10/02/21 [History] Pantoprazole [Protonix] 40 mg PO AC-BID #60 tab 10/09/21 [Rx] carvediloL [Coreg] 3.125 mg PO BID-W/MEALS #60 tab 10/09/21 [Rx] Acetaminophen Tab [Tylenol] 650 mg PO Q4HR PRN tab 03/05/22 [Rx] Clopidogrel [Plavix] 75 mg PO DAILY #30 tab 03/05/22 [Rx] Apixaban [Eliquis] 5 mg PO BID #60 tab 11/09/22 [Rx] Follow up Appointment(s)/Referral(s): Nishant Huffman DO [Primary Care Provider] - 1-2 days Reena Abraham DO [Doctor of Osteopathic Medicine] - 1 Week Zeferino Cobb DO [STAFF PHYSICIAN] - 1 Week Michael Mo MD [STAFF PHYSICIAN] - 1 Week Patient Instructions/Handouts: Transient Ischemic Attack (DC) Activity/Diet/Wound Care/Special Instructions: dc if ok after seen by neurology Discharge Disposition: HOME SELF-CARE
--- NOTE | 2022-12-10 18:59 | CA ---
Transthoracic Echo Report Name: Mona Purvis Age: 82 Gender: F : 1940 Exam Date: 12/10/2022 09:39 Exam Location: [facility] Ht (in): 63 Wt (lb): 150 Ordering Physician: Adams Yang MD Attending/Referring Phys: Drier Take Off Tender Najma Street RDCS Procedure CPT: Indications: limited. stroke Cardiac Hx: Technical Quality: Fair Contrast 1: Total Dose (mL): Contrast 2: Total Dose (mL): MEASUREMENTS (Male / Female) Normal Values 2D ECHO LV Diastolic Diameter PLAX 4.6 cm 4.2 - 5.9 / 3.9 - 5.3 cm LV Systolic Diameter PLAX 3.6 cm IVS Diastolic Thickness 1.1 cm 0.6 - 1.0 / 0.6 - 0.9 cm LVPW Diastolic Thickness 1.0 cm 0.6 - 1.0 / 0.6 - 0.9 cm LV Relative Wall Thickness 0.5 FINDINGS Left Ventricle Limited study. Anterior septal wall Hypokinesis. Moderately decreased LV systolic function. Left ventricular ejection fraction is estimated at 35-40 %. Right Ventricle Right Atrium Left Atrium Mitral Valve Aortic Valve Bioprosthetic Aortic valve with normal function. Tricuspid Valve Pulmonic Valve Pericardium No pericardial effusion. Aorta CONCLUSIONS Moderate LV dysfunction, anterior apical hypokinesis Previewed by: Dr. Roberth Smith MD (Electronically Signed) Final Date: 10 Dec 2022 18:58
== END 2022-12-10 13:32 | disposition home or self-care (01) ==
LOC: EC 14:23 → 6NMEDSUR 16:21
PROVIDERS: ADMIT Hospitalist; ATTEND Hospitalist
DX: R42 Dizziness and giddiness (principal); R47.81 Slurred speech; I25.10 Atherosclerotic heart disease of native coronary artery without angina pectoris; J44.9 Chronic obstructive pulmonary disease, unspecified; I11.0 Hypertensive heart disease with heart failure; I50.20 Unspecified systolic (congestive) heart failure; M47.812 Spondylosis without myelopathy or radiculopathy, cervical region; F17.210 Nicotine dependence, cigarettes, uncomplicated; K21.9 Gastro-esophageal reflux disease without esophagitis; I25.2 Old myocardial infarction; I48.0 Paroxysmal atrial fibrillation; I25.5 Ischemic cardiomyopathy; I71.20 Thoracic aortic aneurysm, without rupture, unspecified; I35.2 Nonrheumatic aortic (valve) stenosis with insufficiency; E78.5 Hyperlipidemia, unspecified; F41.9 Anxiety disorder, unspecified; Z95.810 Presence of automatic (implantable) cardiac defibrillator; Z90.49 Acquired absence of other specified parts of digestive tract; Z79.899 Other long term (current) drug therapy; Z79.02 Long term (current) use of antithrombotics/antiplatelets; Z79.01 Long term (current) use of anticoagulants; Z86.73 Personal history of transient ischemic attack (TIA), and cerebral infarction without residual deficits; Z95.1 Presence of aortocoronary bypass graft; Z95.5 Presence of coronary angioplasty implant and graft; Z80.0 Family history of malignant neoplasm of digestive organs; Z80.3 Family history of malignant neoplasm of breast; Z80.52 Family history of malignant neoplasm of bladder; Z80.51 Family history of malignant neoplasm of kidney; Z95.2 Presence of prosthetic heart valve; Z79.82 Long term (current) use of aspirin
CPT/HCPCS: 99285; 36415; 94640 ×3; 94760 ×2; 95816; 93005; 93308; 97162; 97166; 92523; 80061; 80053; 82550; 85025; 85610; 85730; 71046; 93880; 70450; G0378 ×3

== ENCOUNTER 2022-12-31 12:11 | Inpatient (IN) | payer MEDICARE, BC ==
--- NOTE | 2022-12-31 14:47 | ED ---
GI Bleed HPI - General Chief complaint: GI Bleed Stated complaint: Blood in Stool Time Seen by Provider: 12/31/22 13:55 Source: patient, RN notes reviewed, old records reviewed Mode of arrival: ambulatory Limitations: no limitations - History of Present Illness Initial comments: This is a pleasant nontoxic-appearing 82-year-old female that presents to the emergency room with complaints of multiple episodes of black stools since Wednesday. At least 2 a day. Denies any abdominal pain. No nausea or vomiting. States that she is taking Plavix and eliquis daily for TIA symptoms. Is scheduled to see Dr. Yang on Wednesday for an EEG to rule out seizure disorder. Denies any other abnormal bleeding. No chest pain or shortness of breath. She does have a history of A. fib, coronary artery disease, AICD, COPD, hypertension -: days(s) (4) Severity scale (1-10): 0 Quality: painless Consistency: constant Improves with: none Context: blood thinners (eliquis plavix) Treatments Prior to Arrival: none - Related Data Home Medications Medication Instructions Recorded Confirmed Atorvastatin [Lipitor] 80 mg PO DAILY 01/03/16 12/31/22 Cyanocobalamin (Vitamin B-12) 1,000 mcg PO DAILY 03/08/20 12/31/22 [Vitamin B-12] Budesonide [Pulmicort] 0.5 mg INHALATION RT-BID 10/02/21 12/31/22 calcium polycarbophiL [Fibercon] 625 mg PO DAILY 10/02/21 12/31/22 Cholecalciferol [Vitamin D3 (25 25 mcg PO DAILY 12/31/22 12/31/22 Mcg = 1000 Iu)] Previous Rx's Medication Instructions Recorded Pantoprazole [Protonix] 40 mg PO AC-BID #60 tab 10/09/21 carvediloL [Coreg] 3.125 mg PO BID-W/MEALS #60 tab 10/09/21 Acetaminophen Tab [Tylenol] 650 mg PO Q4HR PRN tab 03/05/22 Clopidogrel [Plavix] 75 mg PO DAILY #30 tab 03/05/22 Apixaban [Eliquis] 5 mg PO BID #60 tab 11/09/22 Allergies Allergy/AdvReac Type Severity Reaction Status Date / Time No Known Allergies Allergy Verified 12/31/22 16:46 Review of Systems ROS Statement: Those systems with pertinent positive or pertinent negative responses have been documented in the HPI. ROS Other: All systems not noted in ROS Statement are negative. Past Medical History Past Medical History: Atrial Fibrillation, Coronary Artery Disease (CAD), COPD, CVA/TIA, GERD/Reflux, Hyperlipidemia, Hypertension, Myocardial Infarction (HI), Osteoarthritis (OA), Vascular Disorder Additional Past Medical History / Comment(s): UTI, 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, 02/2020 TIA, TIA 10/2022, carotid stenosis with L carotid endartectomy, pt states she has had irregular heart beat in past but cannot recall type, aortic stenosis/regurgitation, vertigo, balance issues-uses walker, back pain/disc problems, benign colon polyp,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 Last Myocardial Infarction Date:: 2000 History of Any Multi-Drug Resistant Organisms: None Reported Past Surgical History: AICD, Appendectomy, Bowel Resection, Cholecystectomy, Coronary Bypass/CABG, Heart Catheterization With Stent, Hernia Repair, Orthopedic Surgery Additional Past Surgical History / Comment(s): Arch studies, 2000 PCI with stents, 2002 CABG-3 vessel, 2002 AICD, AICD gen changes, DFTs, 2002 L carotid endartectomy, bowel resection for benign flat polyp, abdominal hernia repair, L hip fracture with surgery, L arm benign lesion removed, colonoscopies/polyps, ALEXIS Past Anesthesia/Blood Transfusion Reactions: No Reported Reaction, Motion Sickness Additional Past Anesthesia/Blood Transfusion Reaction / Comment(s): woke up during battery replacement in defibrillator Date of Last Stent Placement:: 2000 Type of Cardiac Device: AICD Device Placement Date:: 2002- [employer] Past Psychological History: Anxiety Smoking Status: Former smoker Past Alcohol Use History: None Reported Past Drug Use History: None Reported - Past Family History Sister(s) Family Medical History: Cancer Additional Family Medical History / Comment(s): Sister had breast/bladder cancers. Son(s) Family Medical History: Cancer Additional Family Medical History / Comment(s): pancreatic cancer Father Family Medical History: Cancer Additional Family Medical History / Comment(s): Bowel cancer. Mother Family Medical History: Cancer Additional Family Medical History / Comment(s): Mother had bowel cancer twice and 2nd time metastasized to her kidney. General Exam Limitations: no limitations General appearance: alert, in no apparent distress Head exam: Present: atraumatic, normocephalic Eye exam: Present: normal appearance. Absent: scleral icterus, conjunctival injection, periorbital swelling, periorbital tenderness ENT exam: Present: mucous membranes moist Neck exam: Present: full ROM. Absent: tenderness, meningismus Respiratory exam: Absent: respiratory distress, accessory muscle use Cardiovascular Exam: Present: regular rate GI/Abdominal exam: Present: soft. Absent: distended, tenderness, rigid Rectal exam: Present: normal rectal tone. Absent: bloody stool, fecal impaction, mass, tenderness Extremities exam: Present: normal capillary refill. Absent: pedal edema Neurological exam: Present: alert, oriented X3 Psychiatric exam: Present: normal affect, normal mood Skin exam: Present: warm, dry, normal color. Absent: cyanosis, diaphoretic, petechiae, pallor Course Vital Signs 12/31/22 12/31/22 12/31/22 12:39 15:05 18:00 Temperature 98.7 F Pulse Rate 62 64 65 Respiratory 18 18 18 Rate Blood Pressure 116/73 108/68 121/71 O2 Sat by Pulse 96 94 L 97 Oximetry Medical Decision Making - Medical Decision Making Was pt. sent in by a medical professional or institution (, PA, REMOTE COMPUTER TERMINAL OPERATOR, urgent care, hospital, or penitentiary...) When possible be specific @ -[No] Did you speak to anyone other than the patient for history (EMS, parent, family, police, friend...)? What history was obtained from this source @ -[No] Did you review nursing and triage notes (agree or disagree)? Why? @ -[I reviewed and agree with nursing and triage notes] Were old charts reviewed (outside hosp., previous admission, EMS record, old EKG, old radiological studies, urgent care reports/EKG's, penitentiary records)? Report findings @ -Yes old EKG 12/08/2022 Differential Diagnosis (chest pain, altered mental status, abdominal pain women, abdominal pain men, vaginal bleeding, weakness, fever, dyspnea, syncope, headache, dizziness, GI bleed, back pain, seizure, CVA, palpatations, mental health, musculoskeletal)? @ -Differential GI Bleed: Esophageal varices, aortoenteric fistula, Cecelia-Melara, gastritis, peptic ulcer disease, diverticulosis, inflammatory bowel disease, hemorrhoids, fissure, colitis, malignancy, Meckels diverticulum, this is not meant to be an all- inclusive list. EKG interpreted by me (3pts min.). @ -yes EKG interpreted by me shows sinus rhythm with ventricular rate of 61, ND interval 0.170, QRS 0.99, QTC 0.409. No concerning changes compared to old 12/08/2022. X-rays interpreted by me (1pt min.). @ -[None done] CT interpreted by me (1pt min.). @ -[None done] U/S interpreted by me (1pt. min.). @ -[None done] What testing was considered but not performed or refused? (CT, X-rays, U/S, labs)? Why? @ -[None] What meds were considered but not given or refused? Why? @ -[None] Did you discuss the management of the patient with other professionals (professionals i.e. , PA, REMOTE COMPUTER TERMINAL OPERATOR, lab, RT, psych nurse, social media assistant, felling bucking supervisor, teacher, electronic warfare officer, telephonic nurse case manager)? Give summary @ -[No] Was smoking cessation discussed for >3mins.? @ -[No] Was critical care preformed (if so, how long)? @ -[No] Were there social determinants of health that impacted care today? How? (Homelessness, low income, unemployed, alcoholism, drug addiction, transportation, low edu. Level, literacy, decrease access to med. care, custodial, rehab)? @ -[No] Was there de-escalation of care discussed even if they declined (Discuss DNR or withdrawal of care, Hospice)? DNR status @ -[No] What co-morbidities impacted this encounter? (DM, HTN, Smoking, COPD, CAD, Cancer, CVA, ARF, Chemo, Hep., AIDS, mental health diagnosis, sleep apnea, morbid obesity)? @ -History of A. fib, coronary artery disease, AICD, COPD, hypertension Was patient admitted / discharged? Hospital course, mention meds given and route, prescriptions, significant lab abnormalities, going to OR and other pertinent info. @ -Admitted This is a pleasant nontoxic-appearing 82-year-old female that presents to the emergency room with complaints of multiple episodes of black stools since Wednesday. At least 2 a day. Denies any abdominal pain. No nausea or vomiting. States that she is taking Plavix and eliquis daily for TIA symptoms. Is scheduled to see Dr. Yang on Wednesday for an EEG to rule out seizure disorder. Denies any other abnormal bleeding. No chest pain or shortness of breath. EKG interpreted by me shows sinus rhythm with ventricular rate of 61, ND interv al 0.170, QRS 0.99, QTC 0.409. No concerning changes compared to old 12/08/2022. Hemoglobin and hematocrit are stable. No evidence of leukocytosis. Occult blood positive. Patient is hemodynamically stable On physical exam abdomen is soft and nontender. No rectal masses or fissures noted. Good tone. Patient denies any other abnormal bleeding. Case discussed with Dr. Frias who recommended admission with Dr. Mo on consult. Patient is agreeable to this plan of care. Undiagnosed new problem with uncertain prognosis? @ -[No] Drug Therapy requiring intensive monitoring for toxicity (Heparin, Nitro, Insulin, Cardizem)? @ -[No] Were any procedures done? @ -[No] Diagnosis/symptom? @ -GI bleed Acute, or Chronic, or Acute on Chronic? @ -Acute Uncomplicated (without systemic symptoms) or Complicated (systemic symptoms)? @ -Uncomplicated Side effects of treatment? @ -[No] Exacerbation, Progression, or Severe Exacerbation? @ -[No] Poses a threat to life or bodily function? How? (Chest pain, USA, HI, pneumonia, PE, COPD, DKA, ARF, appy, cholecystitis, CVA, Diverticulitis, Homicidal, Suicidal, threat to staff... and all critical care pts) @ -Yes, GI bleed could progress resulting in hypotension, anemia, HI - Lab Data Result diagrams: 12/31/22 14:58 12/31/22 14:58 Lab Results 12/31/22 12/31/22 12/31/22 Range/Units 14:58 14:58 14:58 WBC 8.0 (3.8-10.6) k/uL RBC 3.98 (3.80-5.40) m/uL Hgb 11.9 (11.4-16.0) gm/dL Hct 36.1 (34.0-46.0) % MCV 90.8 (80.0-100.0) fL MCH 29.9 (25.0-35.0) pg MCHC 32.9 (31.0-37.0) g/dL RDW 13.9 (11.5-15.5) % Plt Count 186 (150-450) k/uL MPV 7.6 Neutrophils % 67 % Lymphocytes % 23 % Monocytes % 6 % Eosinophils % 2 % Basophils % 0 % Neutrophils # 5.3 (1.3-7.7) k/uL Lymphocytes # 1.9 (1.0-4.8) k/uL Monocytes # 0.5 (0-1.0) k/uL Eosinophils # 0.2 (0-0.7) k/uL Basophils # 0.0 (0-0.2) k/uL PT 10.3 (9.0-12.0) sec INR 1.0 (<1.2) APTT 30.0 (22.0-30.0) sec Sodium 136 L (137-145) mmol/L Potassium 4.1 (3.5-5.1) mmol/L Chloride 98 (98-107) mmol/L Carbon Dioxide 29 (22-30) mmol/L Anion Gap 9 mmol/L BUN 17 (7-17) mg/dL Creatinine 0.91 (0.52-1.04) mg/dL Est GFR (CKD-EPI)AfAm 69 (>60 ml/min/1.73 sqM) Est GFR (CKD-EPI)NonAf 60 (>60 ml/min/1.73 sqM) Glucose 101 H (74-99) mg/dL Calcium 10.2 (8.4-10.2) mg/dL Total Bilirubin 1.8 H (0.2-1.3) mg/dL AST 27 (14-36) U/L ALT 16 (4-34) U/L Alkaline Phosphatase 105 (38-126) U/L Total Protein 6.9 (6.3-8.2) g/dL Albumin 4.5 (3.5-5.0) g/dL Stool Occult Blood (Negative) Blood Type Blood Type Recheck Bld Type Recheck Status Antibody Screen Spec Expiration Date 12/31/22 12/31/22 Range/Units 14:58 14:58 WBC (3.8-10.6) k/uL RBC (3.80-5.40) m/uL Hgb (11.4-16.0) gm/dL Hct (34.0-46.0) % MCV (80.0-100.0) fL MCH (25.0-35.0) pg MCHC (31.0-37.0) g/dL RDW (11.5-15.5) % Plt Count (150-450) k/uL MPV Neutrophils % % Lymphocytes % % Monocytes % % Eosinophils % % Basophils % % Neutrophils # (1.3-7.7) k/uL Lymphocytes # (1.0-4.8) k/uL Monocytes # (0-1.0) k/uL Eosinophils # (0-0.7) k/uL Basophils # (0-0.2) k/uL PT (9.0-12.0) sec INR (<1.2) APTT (22.0-30.0) sec Sodium (137-145) mmol/L Potassium (3.5-5.1) mmol/L Chloride (98-107) mmol/L Carbon Dioxide (22-30) mmol/L Anion Gap mmol/L BUN (7-17) mg/dL Creatinine (0.52-1.04) mg/dL Est GFR (CKD-EPI)AfAm (>60 ml/min/1.73 sqM) Est GFR (CKD-EPI)NonAf (>60 ml/min/1.73 sqM) Glucose (74-99) mg/dL Calcium (8.4-10.2) mg/dL Total Bilirubin (0.2-1.3) mg/dL AST (14-36) U/L ALT (4-34) U/L Alkaline Phosphatase (38-126) U/L Total Protein (6.3-8.2) g/dL Albumin (3.5-5.0) g/dL Stool Occult Blood Positive H (Negative) Blood Type O Positive Blood Type Recheck O Pos Bld Type Recheck Status No Antibody Screen NEGATIVE Spec Expiration Date 01/03/20232357 - EKG Data -: EKG Interpreted by Me EKG shows normal: sinus rhythm (EKG shows sinus rhythm with ventricular rate of 61, ND interval 0.170, QRS 0.99, QTC 0.409) Disposition Clinical Impression: GIB (gastrointestinal bleeding) Disposition: ADMITTED IP TO THIS HOSP Decision Date: 12/31/22 Decision Time: 16:07
[2022-12-31 15:14] LABS: Basophils % (A) 0 %; Eosinophils # (A) 0.2 k/uL (0-0.7); Eosinophils % (A) 2 %; HCT 36.1 % (34.0-46.0); HGB 11.9 gm/dL (11.4-16.0); Lymphocytes # (A) 1.9 k/uL (1.0-4.8); Lymphocytes % (A) 23 %; MCH 29.9 pg (25.0-35.0); MCHC 32.9 g/dL (31.0-37.0); MCV 90.8 fL (80.0-100.0); Mean Platelet Volume 7.6; Monocytes # (A) 0.5 k/uL (0-1.0); Monocytes % (A) 6 %; Neutrophils # (A) 5.3 k/uL (1.3-7.7); Neutrophils % (A) 67 %; Platelet Count 186 k/uL (150-450); RBC 3.98 m/uL (3.80-5.40); RDW 13.9 % (11.5-15.5)
[2022-12-31 15:21] LABS: ALT 16 U/L (4-34); AST 27 U/L (14-36); African American GFR (CKD) 69 (>60 ml/min/1.73 sqM); Albumin 4.5 g/dL (3.5-5.0); Alkaline Phosphatase 105 U/L (38-126); Anion Gap 9 mmol/L; Blood Urea Nitrogen 17 mg/dL (7-17); Calcium 10.2 mg/dL (8.4-10.2); Carbon Dioxide 29 mmol/L (22-30); Chloride 98 mmol/L (98-107); Glucose 101 mg/dL (74-99); Non-African American GFR(CKD) 60 (>60 ml/min/1.73 sqM); Potassium 4.1 mmol/L (3.5-5.1); Sodium 136 mmol/L (137-145); Total Bilirubin 1.8 mg/dL (0.2-1.3); Total Protein 6.9 g/dL (6.3-8.2)
[2022-12-31 15:33] LABS: Prothrombin Time 10.3 sec (9.0-12.0)
[2022-12-31] MEDS ORDERED: NALOXONE 0.4 MG/ML 1 ML VIAL IV PRN (16:05)
[2022-12-31] MEDS ORDERED: ACETAMINOPHEN TAB 325 MG TAB PO PRN (16:05)
[2022-12-31] MEDS: carvediloL 3.125 MG TAB PO SCH (22:10)
[2022-12-31] MEDS ORDERED: PANTOPRAZOLE 40 MG TABLET PO SCH (22:15)
[2023-01-01] MEDS: BUDESONIDE 0.5 MG/2 ML NEBU INHALATION SCH ×2 (07:29→20:13)
[2023-01-01 08:24] VITALS: RESP 16
--- NOTE | 2023-01-01 08:33 | P.CONS ---
History of Present Illness - Reason for Consult Consult date: 01/01/23 GI bleed Requesting physician: Rene Otero - Chief Complaint Black stool - History of Present Illness This is a pleasant 82-year-old female with a past medical history of coronary artery disease, atrial fibrillation, COPD, GERD, hyperlipidemia, hypertension, vascular disorder with recent recent TIA on Plavix and Eliquis who presented to the emergency department with complaints of black stool over the last 1 week duration. She was started on Eliquis and Plavix about 1-2 months ago and was told that if she saw any black stool could be a sign of bleeding and she should be seen. She denies any previous history of GI bleed. Last dose of Plavix and Eliquis yesterday morning. She states throughout the week she's had black tarry stool, last stool was through the night which was still black. She denies any abdominal pain, epigastric pain, nausea or vomiting. She denies any fevers or chills. No shortness of breath or chest pain. Her last EGD was 10/03/[address] Mo with findings of scattered erosions in the antrum consistent with erosive gastritis without any active bleeding noted. Unsure of last colonoscopy. Labs WBC 8.0 hemoglobin 11.9 hematocrit 36 platelet count 186,000 and INR 1.0 sodium 136 potassium 4.1 BUN 17 creatinine 0.9 glucose 101 total bilirubin 1.8 AST 27 ALT 16 alkaline phosphatase 105 positive stool occult blood Review of Systems REVIEW OF SYSTEMS: CARDIOPULMONARY: No chest pain or shortness of breath. Gastrointestinal: No abdominal pain or epigastric pain. No nausea or vomiting. No hematemesis, coffee-ground emesis. Reports multiple black stools throughout the week. GENITOURINARY: No dysuria or hematuria. MUSCULOSKELETAL: Reports normal range of motion. SKIN: No rashes. No jaundice. ENDOCRINE: No chills, fevers. No excessive weight gain or loss. No polydipsia or polyuria. PSYCHIATRIC: Unremarkable. NEUROLOGY: No change in mental status. Denies dizziness, headache. ENT: Vision unremarkable. CONSTITUTIONAL: No recent weight loss. No fever, chills, night sweats. Past Medical History Past Medical History: Atrial Fibrillation, Coronary Artery Disease (CAD), COPD, CVA/TIA, GERD/Reflux, Hyperlipidemia, Hypertension, Myocardial Infarction ([place]), Osteoarthritis (OA), Vascular Disorder Additional Past Medical History / Comment(s): UTI, 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, 02/2020 TIA, TIA 10/2022, carotid stenosis with L carotid endartectomy, pt states she has had irregular heart beat in past but cannot recall type, aortic stenosis/regurgitation, vertigo, balance issues-uses walker, back pain/disc problems, benign colon polyp,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 Last Myocardial Infarction Date:: 2000 History of Any Multi-Drug Resistant Organisms: None Reported Past Surgical History: AICD, Appendectomy, Bowel Resection, Cholecystectomy, Coronary Bypass/CABG, Heart Catheterization With Stent, Hernia Repair, Orthopedic Surgery Additional Past Surgical History / Comment(s): Arch studies, 2000 PCI with stents, 2002 CABG-3 vessel, 2002 AICD, AICD gen changes, DFTs, 2002 L carotid endartectomy, bowel resection for benign flat polyp, abdominal hernia repair, L hip fracture with surgery, L arm benign lesion removed, colonoscopies/polyps, ALEXIS Past Anesthesia/Blood Transfusion Reactions: No Reported Reaction, Motion Sickness Additional Past Anesthesia/Blood Transfusion Reaction / Comm: woke up during battery replacement in defibrillator Date of Last Stent Placement:: 2000 Type of Cardiac Device: AICD Device Placement Date:: 2002- [employer] Past Psychological History: Anxiety Smoking Status: Former smoker Past Alcohol Use History: None Reported Past Drug Use History: None Reported - Past Family History Sister(s) Family Medical History: Cancer Additional Family Medical History / Comment(s): Sister had breast/bladder cancers. Son(s) Family Medical History: Cancer Additional Family Medical History / Comment(s): pancreatic cancer Father Family Medical History: Cancer Additional Family Medical History / Comment(s): Bowel cancer. Mother Family Medical History: Cancer Additional Family Medical History / Comment(s): Mother had bowel cancer twice and 2nd time metastasized to her kidney. Medications and Allergies Home Medications Medication Instructions Recorded Confirmed Type Atorvastatin [Lipitor] 80 mg PO DAILY 01/03/16 12/31/22 History Cyanocobalamin (Vitamin B-12) 1,000 mcg PO DAILY 03/08/20 12/31/22 History [Vitamin B-12] Budesonide [Pulmicort] 0.5 mg INHALATION RT-BID 10/02/21 12/31/22 History calcium polycarbophiL [Fibercon] 625 mg PO DAILY 10/02/21 12/31/22 History Pantoprazole [Protonix] 40 mg PO AC-BID #60 tab 10/09/21 12/31/22 Rx carvediloL [Coreg] 3.125 mg PO BID-W/MEALS #60 tab 10/09/21 12/31/22 Rx Acetaminophen Tab [Tylenol] 650 mg PO Q4HR PRN tab 03/05/22 12/31/22 Rx Clopidogrel [Plavix] 75 mg PO DAILY #30 tab 03/05/22 12/31/22 Rx Apixaban [Eliquis] 5 mg PO BID #60 tab 11/09/22 12/31/22 Rx Cholecalciferol [Vitamin D3 (25 25 mcg PO DAILY 12/31/22 12/31/22 History Mcg = 1000 Iu)] Allergies Allergy/AdvReac Type Severity Reaction Status Date / Time No Known Allergies Allergy Verified 12/31/22 16:46 Physical Exam Vitals: Vital Signs Temp Pulse Resp BP Pulse Ox 01/01/23 05:12 63 18 124/62 96 12/31/22 21:47 65 18 110/65 96 12/31/22 18:00 65 18 121/71 97 12/31/22 15:05 64 18 108/68 94 L 12/31/22 12:39 98.7 F 62 18 116/73 96 Intake and Output 12/31/22 12/31/22 01/01/23 14:59 22:59 06:59 Other: Weight 68.039 kg General appearance: The patient is alert, oriented, appears in no acute distress. HET: Head is normocephalic and atraumatic. Conjunctiva pink. Sclera anicteric. Neck: Supple without lymphadenopathy. Trachea midline. Heart: S1 S2. Regular rate and rhythm. Lungs: Clear to auscultation. Abdomen: Soft, nontender, nondistended with bowel sounds. No guarding or rigidity. Skin: No rashes. No jaundice. Extremities: Normal skin color and turgor. No pedal edema. Neurological: No focal deficits. Alert and oriented x3. Results CBC & Chem 7: 12/31/22 14:58 12/31/22 14:58 Labs: Abnormal Lab Results - Last 24 Hours (Table) 12/31/22 12/31/22 Range/Units 14:58 14:58 Sodium 136 L (137-145) mmol/L Glucose 101 H (74-99) mg/dL Total Bilirubin 1.8 H (0.2-1.3) mg/dL Stool Occult Blood Positive H (Negative) Assessment and Plan (1) GI bleed Narrative/Plan: This 82-year-old female who presented to the emergency department with complaints of multiple black stools over last 1 week duration. Patient recently diagnosed with TIAs with a history of atrial fibrillation on Plavix and eliquis. She was told that if she had black stools that could be a sign of bleeding came into the emergency department for further evaluation. Hemoglobin stable at 11.9 however patient did have a drop from November of this year which was 13.0. Need to consider possible upper GI bleed with no anticoagulation and would recommend upper endoscopy. Patient is agreeable and will proceed this afternoon. Patient also noted to have mildly elevated total bilirubin with normal LFTs. 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 Current Visit: Yes Status: Acute Code(s): K92.2 - GASTROINTESTINAL HEMORRHAGE, UNSPECIFIED SNOMED Code(s): 60298820 (2) Atrial fibrillation Current Visit: Yes Status: Acute Code(s): I48.91 - UNSPECIFIED ATRIAL FIBRILLATION SNOMED Code(s): 89242553 (3) History of TIAs Current Visit: No Status: Acute Code(s): Z86.73 - PRSNL HX OF TIA (TIA), AND CEREB INFRC W/O RESID DEFICITS SNOMED Code(s): 295000862 Plan: 1. Continue symptomatic and supportive care 2. Daily CBC, transfuse for hemoglobin less than 7 3. Nothing by mouth 4. Hold Eliquis and Plavix 5. Recommend upper endoscopy, patient agreeable to proceed with EGD is afternoon. Further recommendations forthcoming per gastroenterology following endoscopy. Thank you for allowing us to participate in the care of the patient, the GI service will sign off, gastroenterology will not be available at the hospital this weekend and through next week. If further evaluation by gastroenterology is required the patient will need transfer as per the primary team's discretion. Dr. Lalit Mo I agree with the dictator's note, documented as a scribe by Andra Mercer
[2023-01-01] MEDS: CYANOCOBALAMIN 500 MCG TAB PO SCH (09:41)
[2023-01-01] MEDS: carvediloL 3.125 MG TAB PO SCH ×2 (09:41→18:15)
[2023-01-01] MEDS: PANTOPRAZOLE 40 MG/10 ML VIAL IVP SCH ×2 (09:41→20:23)
[2023-01-01] MEDS: ATORVASTATIN 80 MG TAB PO SCH (09:41)
--- NOTE | 2023-01-01 16:03 | P.HPIM ---
History of Present Illness H&P Date: 01/01/23 Chief Complaint: Black stools This is a very pleasant 82-year-old patient of Dr. Huffman. neurologist Dr. Cobb. Chronic stable medical conditions include hypertension, hyperlipidemia, herniated disc in the back, coronary artery disease with bypass. COPD February 2022: Dr. Alex Gross operated on symptomatic calcified tricuspid aortic stenosis. The valve was replaced with aortic valve prosthesis. On 11/06/2022: Patient presented here with left cheek left hand numbness with some difficulty in speech. Lasted for about 30-[address] brain showed chronic changes. Small old infarct in the left coronary radiata. Carotid Doppler unremarkable. Computed tomography scan cervical spine showed multiple level of DJD with central stenosis. Patient seen by Dr. Reena Abraham from orthopedic spine.: Patient's had complained of chronic neck pain rattling for some time. Has also seen pain management in the past. 2-D echo showed EF of 40-45%. Severe hypokinesis of the anteroapical and anteroseptal wall. With possible apical thrombus. Patient readmitted from December 08 through December 10. With TIA. Seen by neurology Dr. Yang. Plavix was added. Patient now presents about 7 days of dark stools. Dizzy lightheaded. Feeling weak and tired. No abdominal pain. No chest pain. No shortness of breath. GI consulted. Review of systems: GEN.: Tired EYES: None HEENT: None NECK: Chronic neck pain RESPIRATORY: None CARDIOVASCULAR: None GASTROINTESTINAL: None GENITOURINARY: None MUSCULOSKELETAL: Neck and back pain LYMPHATICS: None HEMATOLOGICAL: None PSYCHIATRY: None NEUROLOGICAL: None Past medical history to include: Coronary artery disease, stroke, GERD, hypertension, hyperlipidemia, back pain with herniated disc carotid bypass in 2002 AICD, anxiety. COPD. CHF EF 40-45 %. Prosthetic aortic valve February 2022. Social history: Lives alone. Smoking since 1970 about a pack a day now down to a about 5 cigarettes a day. No alcohol Family history: Bowel cancer Physical examination: VITAL SIGNS: 98.1, 69, 16, 147/91, 95% room air GENERAL: BMI 26.6, reclining in bed, comfortable EYES: [Pupils equal. Conjunctiva pale HEENT: External appearance of nose and ears normal, oral cavity grossly normal. NECK: JVD not raised; masses not palpable. HEART: First and second heart sounds are normal; no edema. LUNGS: Respiratory rate normal; decreased breath sounds. ABDOMEN: Soft, nontender, liver spleen not palpable, no masses palpable. PSYCH: Alert and oriented x3; mood and affect normal. MUSCULOSKELETAL:No Clubbing/cyanosis;muscles-grossly intact. Evidence of OA NEUROLOGICAL: Cranials grossly intact for sensation grossly intact LYMPHATICS: No lymph nodes palpable in the neck and axilla INVESTIGATIONS, reviewed in the clinical context: December 31: WBC 8 hemoglobin 11.9 platelets 186 potassium 4.1 creatinine 0.91 EKG tracing personally reviewed by me-normal sinus rhythm. ST/T-wave changes. Recent investigations EEG: No seizure activity Carotid Doppler: No significant stenosis White count 8.1 hemoglobin 13 platelets 170 potassium 4.3 creatinine 0.[address] brain: Moderate to severe patchy water to chronic small vessel ischemic changes. Old deep white matter infarct involving the right coronary radiata. Also order lacunar infarct involving bilateral basal ganglia. Recent testing: October 2022 Cervical spine computed tomography scan showing multilevel DJD and spinal stenosis Carotid Doppler: Unremarkable 2-D echocardiogram 11/07/2022 possible apical thrombus. Bioprosthetic aortic valve with normal function. EF 40-45%. Hypokinesis Assessment and plan: -Acute GI bleed in a patient who is on eliquis, Plavix. Now presented with dark stools. Suspect upper GI bleed. Eliquis and Plavix held. GI consulted. PPI. -Acute blood loss anemia Recent hemoglobin was 13. On admission 11.9 -COPD in a current smoker Albuterol when necessary -Possible left ventricle apical thrombus from echocardiogram October 2022 On eliquis -Chronic congestive heart failure exacerbation from systolic dysfunction EF 40- 45% %: From prior aortic stenosis Follow clinically -Prosthetic aortic valve -Chronic nicotine dependence patient cigarette smoker Nicotine patch -Hyperlipidemia Lipitor 80 mg daily at bedtime -Coronary artery disease with a bypass in 2002 and stent Lipitor, aspirin . 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 Abraham from orthopedics follows -Primary osteoarthritis Tylenol when necessary -AICD Nothing by mouth. Pending endoscopy. PPI. Follow H&H. Eliquis and Plavix held. Past Medical History Past Medical History: Atrial Fibrillation, Coronary Artery Disease (CAD), COPD, CVA/TIA, GERD/Reflux, Hyperlipidemia, Hypertension, Myocardial Infarction (TN), Osteoarthritis (OA), Vascular Disorder Additional Past Medical History / Comment(s): UTI, 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, 02/2020 TIA, TIA 10/2022, carotid stenosis with L carotid endartectomy, pt states she has had irregular heart beat in past but cannot recall type, aortic stenosis/regurgitation, vertigo, balance issues-uses walker, back pain/disc problems, benign colon polyp,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 Last Myocardial Infarction Date:: 2000 History of Any Multi-Drug Resistant Organisms: None Reported Past Surgical History: AICD, Appendectomy, Bowel Resection, Cholecystectomy, Coronary Bypass/CABG, Heart Catheterization With Stent, Hernia Repair, Orthopedic Surgery Additional Past Surgical History / Comment(s): Arch studies, 2000 PCI with stents, 2002 CABG-3 vessel, 2002 AICD, AICD gen changes, DFTs, 2002 L carotid endartectomy, bowel resection for benign flat polyp, abdominal hernia repair, L hip fracture with surgery, L arm benign lesion removed, colonoscopies/polyps, ALEXIS Past Anesthesia/Blood Transfusion Reactions: No Reported Reaction, Motion Sickness Additional Past Anesthesia/Blood Transfusion Reaction / Comment(s): woke up during battery replacement in defibrillator Date of Last Stent Placement:: 2000 Type of Cardiac Device: AICD Device Placement Date:: 2002- [employer] Past Psychological History: Anxiety Smoking Status: Former smoker Past Alcohol Use History: None Reported Past Drug Use History: None Reported - Past Family History Sister(s) Family Medical History: Cancer Additional Family Medical History / Comment(s): Sister had breast/bladder cancers. Son(s) Family Medical History: Cancer Additional Family Medical History / Comment(s): pancreatic cancer Father Family Medical History: Cancer Additional Family Medical History / Comment(s): Bowel cancer. Mother Family Medical History: Cancer Additional Family Medical History / Comment(s): Mother had bowel cancer twice and 2nd time metastasized to her kidney. Medications and Allergies Home Medications Medication Instructions Recorded Confirmed Type Atorvastatin [Lipitor] 80 mg PO DAILY 01/03/16 12/31/22 History Cyanocobalamin (Vitamin B-12) 1,000 mcg PO DAILY 03/08/20 12/31/22 History [Vitamin B-12] Budesonide [Pulmicort] 0.5 mg INHALATION RT-BID 10/02/21 12/31/22 History calcium polycarbophiL [Fibercon] 625 mg PO DAILY 10/02/21 12/31/22 History Pantoprazole [Protonix] 40 mg PO AC-BID #60 tab 10/09/21 12/31/22 Rx carvediloL [Coreg] 3.125 mg PO BID-W/MEALS #60 tab 10/09/21 12/31/22 Rx Acetaminophen Tab [Tylenol] 650 mg PO Q4HR PRN tab 03/05/22 12/31/22 Rx Clopidogrel [Plavix] 75 mg PO DAILY #30 tab 03/05/22 12/31/22 Rx Apixaban [Eliquis] 5 mg PO BID #60 tab 11/09/22 12/31/22 Rx Cholecalciferol [Vitamin D3 (25 25 mcg PO DAILY 12/31/22 12/31/22 History Mcg = 1000 Iu)] Allergies Allergy/AdvReac Type Severity Reaction Status Date / Time No Known Allergies Allergy Verified 12/31/22 16:46 Physical Exam Vitals: Vital Signs Temp Pulse Resp BP Pulse Ox 01/01/23 07:37 66 01/01/23 07:30 66 01/01/23 07:00 98.1 F 69 16 147/91 95 01/01/23 05:12 63 18 124/62 96 12/31/22 21:47 65 18 110/65 96 12/31/22 18:00 65 18 121/71 97 12/31/22 15:05 64 18 108/68 94 L 12/31/22 12:39 98.7 F 62 18 116/73 96 Results CBC & Chem 7: 12/31/22 14:58 12/31/22 14:58 Labs: Abnormal Lab Results - Last 24 Hours (Table) 12/31/22 12/31/22 Range/Units 14:58 14:58 Sodium 136 L (137-145) mmol/L Glucose 101 H (74-99) mg/dL Total Bilirubin 1.8 H (0.2-1.3) mg/dL Stool Occult Blood Positive H (Negative)
[2023-01-01] MEDS ORDERED: PROPOFOL 10 MG/ML 20 ML VIAL IV ONE (16:57)
[2023-01-01] MEDS ORDERED: SODIUM CHLORIDE 0.9% 500 ML 500 ML IV ONE (17:02)
--- NOTE | 2023-01-01 17:20 | P.PCN ---
Date of Procedure: 01/01/23 Procedure(s) Performed: BRIEF HISTORY: Patient is a 82-year-old, pleasant, white female admitted hospital with black stools for the last 1 week duration. She has history of CVA/TIA and has been on a eliquis and the last dose was yesterday. She is scheduled for an upper endoscopy to evaluate further. She dropped hemoglobin from 13-11 g/dL. PROCEDURE PERFORMED: Esophagogastroduodenoscopy. PREOPERATIVE DIAGNOSIS: Black tarry stools of 1 week duration. IV sedation per anesthesia. PROCEDURE: After informed consent was obtained, the patient was brought into the endoscopy unit. IV sedation was administered by Anesthesia under continuous monitoring. Initially the Olympus GIF-140 video endoscope was inserted into the mouth. Esophagus intubated without any difficulty. It was gradually advanced into the stomach and duodenum and carefully examined. The bulb and the second part of the duodenum appeared normal. The scope at this time was withdrawn to the stomach, adequately insufflated with air, and upon careful examination, mucosa of the antrum, had patchy areas of erythema. The cause of the body, cardia and the fundus appeared normal. The scope was then withdrawn into the esophagus. The GE junction was located at 39 cm from the incisors. Mild erythema noted consistent with mild reflux esophagitis The esophagus appeared normal. There were no erosions or ulcerations seen and the patient tolerated the procedure well. IMPRESSION: 1. No active upper GI bleed. 2. Mild antral gastritis and LA grade a reflux esophagitis. RECOMMENDATIONS: The findings of this examination were discussed with the patient . Diet will be advanced as tolerated. Monitor CBC daily. Resume eliquis. If she continues to drop hemoglobin she may be a candidate for a small bowel capsule endoscopy and outpatient basis.
[2023-01-02 07:45] VITALS: BP 126/73; TEMP 98.1
[2023-01-02] MEDS: carvediloL 3.125 MG TAB PO SCH (07:47)
[2023-01-02] MEDS: ATORVASTATIN 80 MG TAB PO SCH (07:47)
[2023-01-02] MEDS: CYANOCOBALAMIN 500 MCG TAB PO SCH (07:47)
[2023-01-02 07:59] LABS: Basophils % (A) 1 %; Eosinophils # (A) 0.1 k/uL (0-0.7); Eosinophils % (A) 2 %; HCT 37.6 % (34.0-46.0); HGB 12.3 gm/dL (11.4-16.0); Lymphocytes # (A) 1.7 k/uL (1.0-4.8); Lymphocytes % (A) 23 %; MCH 30.4 pg (25.0-35.0); MCHC 32.6 g/dL (31.0-37.0); MCV 93.1 fL (80.0-100.0); Mean Platelet Volume 7.3; Monocytes # (A) 0.5 k/uL (0-1.0); Monocytes % (A) 7 %; Neutrophils % (A) 67 %; Platelet Count 189 k/uL (150-450); RBC 4.04 m/uL (3.80-5.40); RDW 13.6 % (11.5-15.5); WBC 7.5 k/uL (3.8-10.6)
[2023-01-02] MEDS: PANTOPRAZOLE 40 MG/10 ML VIAL IVP SCH (08:17)
[2023-01-02 08:55] VITALS: BMI 26.5
[2023-01-02] MEDS: BUDESONIDE 0.5 MG/2 ML NEBU INHALATION SCH (08:58)
[2023-01-02 09:01] VITALS: PULSE 66
--- NOTE | 2023-01-02 13:58 | P.DS ---
Providers Date of admission: 12/31/22 17:14 Expected date of discharge: 01/02/23 Attending physician: Deacon Pool Consults: 12/31/22 16:05 Consult Physician Routine Consulting Provider: Tabatha Mo Consult Reason/Comments: gib Do you want consulting provider notified?: Already Contacted Primary care physician: [facility] Course: Chief Complaint: Black stools This is a very pleasant 82-year-old patient of Dr. Huffman. neurologist Dr. Cobb. Chronic stable medical conditions include hypertension, hyperlipidemia, herniated disc in the back, coronary artery disease with bypass. COPD February 2022: Dr. Alex Gross operated on symptomatic calcified tricuspid aortic stenosis. The valve was replaced with aortic valve prosthesis. On 11/06/2022: Patient presented here with left cheek left hand numbness with some difficulty in speech. Lasted for about 30-[address] brain showed chronic changes. Small old infarct in the left coronary radiata. Carotid Doppler unremarkable. Computed tomography scan cervical spine showed multiple level of DJD with central stenosis. Patient seen by Dr. Reena Abraham from orthopedic spine.: Patient's had complained of chronic neck pain rattling for some time. Has also seen pain management in the past. 2-D echo showed EF of 40-45%. Severe hypokinesis of the anteroapical and anteroseptal wall. With possible apical thrombus. Patient readmitted from December 08 through December 10. With TIA. Seen by neurology Dr. Yang. Plavix was added. Patient now presents about 7 days of dark stools. Dizzy lightheaded. Feeling weak and tired. No abdominal pain. No chest pain. No shortness of breath. GI consulted. January 02: Listed underwent EGD by Dr. Lalit Mo. Showed mild antral gastritis and leg. A reflux esophagitis. Eliquis was resumed. We will hold off Plavix. Discussed with patient. Patient follow-up with GI outpatient may be candidate for small bowel capsule endoscopy. Discussion and discharge planning more than 35 minutes Past medical history to include: Coronary artery disease, stroke, GERD, hypertension, hyperlipidemia, back pain with herniated disc carotid bypass in 2002 AICD, anxiety. COPD. CHF EF 40-45 %. Prosthetic aortic valve February 2022. Social history: Lives alone. Smoking since 1970 about a pack a day now down to a about 5 cigarettes a day. No alcohol Family history: Bowel cancer Physical examination: VITAL SIGNS: 98.1, 65, 16, 126/73, 95% room air GENERAL: BMI 26.6, comfortable EYES: [Pupils equal. Conjunctiva pale HEENT: External appearance of nose and ears normal, oral cavity grossly normal. NECK: JVD not raised; masses not palpable. HEART: First and second heart sounds are normal; no edema. LUNGS: Respiratory rate normal; decreased breath sounds. ABDOMEN: Soft, nontender, liver spleen not palpable, no masses palpable. PSYCH: Alert and oriented x3; mood and affect normal. MUSCULOSKELETAL:No Clubbing/cyanosis;muscles-grossly intact. Evidence of OA NEUROLOGICAL: Cranials grossly intact for sensation grossly intact LYMPHATICS: No lymph nodes palpable in the neck and axilla INVESTIGATIONS, reviewed in the clinical context: January 02: Hemoglobin 12.3 December 31: WBC 8 hemoglobin 11.9 platelets 186 potassium 4.1 creatinine 0.91 EKG tracing personally reviewed by me-normal sinus rhythm. ST/T-wave changes. Recent investigations EEG: No seizure activity Carotid Doppler: No significant stenosis White count 8.1 hemoglobin 13 platelets 170 potassium 4.3 creatinine 0.[address] brain: Moderate to severe patchy water to chronic small vessel ischemic changes. Old deep white matter infarct involving the right coronary radiata. Also order lacunar infarct involving bilateral basal ganglia. Recent testing: October 2022 Cervical spine computed tomography scan showing multilevel DJD and spinal stenosis Carotid Doppler: Unremarkable 2-D echocardiogram 11/07/2022 possible apical thrombus. Bioprosthetic aortic valve with normal function. EF 40-45%. Hypokinesis Assessment and plan: -Acute GI bleed in a patient who is on eliquis, Plavix. Now presented with dark stools. : Gastritis esophagitis EGD: Some gastritis and esophagitis. Plavix discontinued. Continue eliquis. Patient to follow with Dr. Lalit Mo outpatient for possible small endoscopy if hemoglobin drops. -Acute blood loss anemia Recent hemoglobin was 13. On admission 11.9 -COPD in a current smoker Albuterol when necessary -Possible left ventricle apical thrombus from echocardiogram October 2022 On eliquis -Chronic congestive heart failure exacerbation from systolic dysfunction EF 40- 45% %: From prior aortic stenosis Follow clinically -Prosthetic aortic valve -Chronic nicotine dependence patient cigarette smoker Nicotine patch -Hyperlipidemia Lipitor 80 mg daily at bedtime -Coronary artery disease with a bypass in 2002 and stent Lipitor, . 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 Abraham from orthopedics follows -Primary osteoarthritis Tylenol when necessary -AICD Disposition: Home Labs: CBC 1 week Plan - Discharge Summary Discharge Rx Participant: Yes New Discharge Prescriptions: Continue Atorvastatin [Lipitor] 80 mg PO DAILY Cyanocobalamin (Vitamin B-12) [Vitamin B-12] 1,000 mcg PO DAILY calcium polycarbophiL [Fibercon] 625 mg PO DAILY Budesonide [Pulmicort] 0.5 mg INHALATION RT-BID Pantoprazole [Protonix] 40 mg PO AC-BID #60 tab carvediloL [Coreg] 3.125 mg PO BID-W/MEALS #60 tab Acetaminophen Tab [Tylenol] 650 mg PO Q4HR PRN tab PRN Reason: Fever And/ Or Mild Pain (1-3) Apixaban [Eliquis] 5 mg PO BID #60 tab Cholecalciferol [Vitamin D3 (25 Mcg = 1000 Iu)] 25 mcg PO DAILY Discontinued Clopidogrel [Plavix] 75 mg PO DAILY #30 tab Discharge Medication List Atorvastatin [Lipitor] 80 mg PO DAILY 01/03/16 [History] Cyanocobalamin (Vitamin B-12) [Vitamin B-12] 1,000 mcg PO DAILY 03/08/20 [History] Budesonide [Pulmicort] 0.5 mg INHALATION RT-BID 10/02/21 [History] calcium polycarbophiL [Fibercon] 625 mg PO DAILY 10/02/21 [History] Pantoprazole [Protonix] 40 mg PO AC-BID #60 tab 10/09/21 [Rx] carvediloL [Coreg] 3.125 mg PO BID-W/MEALS #60 tab 10/09/21 [Rx] Acetaminophen Tab [Tylenol] 650 mg PO Q4HR PRN tab 03/05/22 [Rx] Apixaban [Eliquis] 5 mg PO BID #60 tab 11/09/22 [Rx] Cholecalciferol [Vitamin D3 (25 Mcg = 1000 Iu)] 25 mcg PO DAILY 12/31/22 [History] Follow up Appointment(s)/Referral(s): Nishant Huffman DO [Primary Care Provider] - 1-2 days (Patient instructed to make follow-up appointment) Patient Instructions/Handouts: Gastritis (DC) Discharge Disposition: HOME SELF-CARE
== END 2023-01-02 13:35 | disposition home or self-care (01) | DRG 377 ==
LOC: EC 12:11 → 5NMEDONC 17:14
PROVIDERS: ADMIT Hospitalist; ATTEND Hospitalist
PROC: 0DJ08ZZ Inspection of Upper Intestinal Tract, Via Natural or Artificial Opening Endoscopic (ICD-10-PCS; principal; 2022-12-31)
DX: K29.71 Gastritis, unspecified, with bleeding (principal); I50.23 Acute on chronic systolic (congestive) heart failure; D62 Acute posthemorrhagic anemia; I50.22 Chronic systolic (congestive) heart failure; I25.10 Atherosclerotic heart disease of native coronary artery without angina pectoris; I25.2 Old myocardial infarction; F17.210 Nicotine dependence, cigarettes, uncomplicated; Z95.810 Presence of automatic (implantable) cardiac defibrillator; Z95.3 Presence of xenogenic heart valve; F41.9 Anxiety disorder, unspecified; G89.29 Other chronic pain; I48.91 Unspecified atrial fibrillation; Z87.440 Personal history of urinary (tract) infections; M19.90 Unspecified osteoarthritis, unspecified site; I11.0 Hypertensive heart disease with heart failure; K21.00 Gastro-esophageal reflux disease with esophagitis, without bleeding; M19.91 Primary osteoarthritis, unspecified site; Z79.01 Long term (current) use of anticoagulants; Z79.02 Long term (current) use of antithrombotics/antiplatelets; Z79.899 Other long term (current) drug therapy; Z86.73 Personal history of transient ischemic attack (TIA), and cerebral infarction without residual deficits; Z95.1 Presence of aortocoronary bypass graft; Z95.2 Presence of prosthetic heart valve; Z87.19 Personal history of other diseases of the digestive system; Z90.49 Acquired absence of other specified parts of digestive tract
CPT/HCPCS: 36415; 43235; 80053; 82272; 85025; 85610; 85730; 86850; 86900; 86901; 93005; 94640; 99285

== ENCOUNTER 2023-01-04 15:22 | Emergency (ER) | payer MEDICARE, BC ==
[2023-01-04 15:33] VITALS: RESP 18; TEMP 98.2
--- NOTE | 2023-01-04 16:29 | ED ---
Neuro HPI - General Chief Complaint: Neuro Symptoms/Deficit Stated Complaint: Headache, Numbness in Arms Time Seen by Provider: 01/04/23 16:12 Source: EMS Mode of arrival: EMS Limitations: no limitations - History of Present Illness Is the patient presenting with stroke symptoms?: No Last Known Well Date: 01/04/23 Last Known Well Time: 11:00 -: hour(s) Initial Comments: 's patient is an 82-year-old woman with history of previous TIAs who presents with what she believes was another. She states that around 11 this morning she attempted to answer her phone and found that she wasn't able to pick it up. She states she wasn't able to grasp it properly. She then was noting that both of her hands were shaking and felt unsteady. The patient does note that she has follow-up with her neurologist tomorrow in the clinic to have further testing from previous neurologic episodes that were considered possible TIA versus possible seizure. Location: left arm, right arm - Related Data Home Medications: Home Medications Medication Instructions Recorded Confirmed Atorvastatin [Lipitor] 80 mg PO DAILY 01/03/16 12/31/22 Cyanocobalamin (Vitamin B-12) 1,000 mcg PO DAILY 03/08/20 12/31/22 [Vitamin B-12] Budesonide [Pulmicort] 0.5 mg INHALATION RT-BID 10/02/21 12/31/22 calcium polycarbophiL [Fibercon] 625 mg PO DAILY 10/02/21 12/31/22 Cholecalciferol [Vitamin D3 (25 25 mcg PO DAILY 12/31/22 12/31/22 Mcg = 1000 Iu)] Previous Rx's Medication Instructions Recorded Pantoprazole [Protonix] 40 mg PO AC-BID #60 tab 10/09/21 carvediloL [Coreg] 3.125 mg PO BID-W/MEALS #60 tab 10/09/21 Acetaminophen Tab [Tylenol] 650 mg PO Q4HR PRN tab 03/05/22 Apixaban [Eliquis] 5 mg PO BID #60 tab 11/09/22 levETIRAcetam [Keppra] 250 mg PO Q12HR #30 tab 01/04/23 Allergies/Adverse Reactions: Allergies Allergy/AdvReac Type Severity Reaction Status Date / Time No Known Allergies Allergy Verified 06/15/23 16:46 Review of Systems ROS Statement: Those systems with pertinent positive or pertinent negative responses have been documented in the HPI. ROS Other: All systems not noted in ROS Statement are negative. Constitutional: Reports: weakness. Denies: fever Eyes: Denies: eye pain, vision change Respiratory: Denies: cough, dyspnea Cardiovascular: Denies: chest pain, palpitations Gastrointestinal: Denies: abdominal pain, vomiting Genitourinary: Denies: dysuria Neurological: Reports: weakness. Denies: headache, numbness Psychiatric: Reports: anxiety General Exam Limitations: no limitations General appearance: alert, in no apparent distress Head exam: Present: atraumatic, normocephalic Eye exam: Present: normal appearance, PERRL, EOMI. Absent: scleral icterus, nystagmus ENT exam: Present: normal oropharynx Neck exam: Present: normal inspection, full ROM Respiratory exam: Present: normal lung sounds bilaterally. Absent: respiratory distress, wheezes, rales, rhonchi, stridor Cardiovascular Exam: Present: regular rate, normal rhythm, normal heart sounds. Absent: systolic murmur, diastolic murmur, rubs, gallop GI/Abdominal exam: Present: soft. Absent: distended, tenderness, guarding, rebound, rigid, mass Extremities exam: Present: normal inspection, normal capillary refill. Absent: pedal edema, calf tenderness Back exam: Present: normal inspection Neurological exam: Present: alert, oriented X3, CN II-XII intact. Absent: motor sensory deficit Skin exam: Present: warm, dry, intact, normal color. Absent: rash Stroke MDM - Lab Data Result diagrams: 01/04/23 16:47 01/04/23 16:47 Lab Results 01/04/23 01/04/23 01/04/23 Range/Units 16:47 16:47 16:47 WBC 6.9 (3.8-10.6) k/uL RBC 3.71 L (3.80-5.40) m/uL Hgb 11.5 (11.4-16.0) gm/dL Hct 34.1 (34.0-46.0) % MCV 92.1 (80.0-100.0) fL MCH 31.1 (25.0-35.0) pg MCHC 33.8 (31.0-37.0) g/dL RDW 14.0 (11.5-15.5) % Plt Count 168 (150-450) k/uL MPV 7.9 Neutrophils % 73 % Lymphocytes % 18 % Monocytes % 6 % Eosinophils % 2 % Basophils % 0 % Neutrophils # 5.1 (1.3-7.7) k/uL Lymphocytes # 1.2 (1.0-4.8) k/uL Monocytes # 0.4 (0-1.0) k/uL Eosinophils # 0.1 (0-0.7) k/uL Basophils # 0.0 (0-0.2) k/uL PT 10.9 (9.0-12.0) sec INR 1.0 (<1.2) APTT 27.9 (22.0-30.0) sec Sodium 134 L (137-145) mmol/L Potassium 4.1 (3.5-5.1) mmol/L Chloride 99 (98-107) mmol/L Carbon Dioxide 27 (22-30) mmol/L Anion Gap 8 mmol/L BUN 13 (7-17) mg/dL Creatinine 0.84 (0.52-1.04) mg/dL Est GFR (CKD-EPI)AfAm 76 (>60 ml/min/1.73 sqM) Est GFR (CKD-EPI)NonAf 66 (>60 ml/min/1.73 sqM) Glucose 114 H (74-99) mg/dL Calcium 10.0 (8.4-10.2) mg/dL Total Bilirubin 2.1 H (0.2-1.3) mg/dL AST 32 (14-36) U/L ALT 18 (4-34) U/L Alkaline Phosphatase 83 (38-126) U/L Creatine Kinase 145 H (30-135) U/L Troponin I (0.000-0.034) ng/mL Total Protein 6.6 (6.3-8.2) g/dL Albumin 4.2 (3.5-5.0) g/dL 01/04/23 Range/Units 16:47 WBC (3.8-10.6) k/uL RBC (3.80-5.40) m/uL Hgb (11.4-16.0) gm/dL Hct (34.0-46.0) % MCV (80.0-100.0) fL MCH (25.0-35.0) pg MCHC (31.0-37.0) g/dL RDW (11.5-15.5) % Plt Count (150-450) k/uL MPV Neutrophils % % Lymphocytes % % Monocytes % % Eosinophils % % Basophils % % Neutrophils # (1.3-7.7) k/uL Lymphocytes # (1.0-4.8) k/uL Monocytes # (0-1.0) k/uL Eosinophils # (0-0.7) k/uL Basophils # (0-0.2) k/uL PT (9.0-12.0) sec INR (<1.2) APTT (22.0-30.0) sec Sodium (137-145) mmol/L Potassium (3.5-5.1) mmol/L Chloride (98-107) mmol/L Carbon Dioxide (22-30) mmol/L Anion Gap mmol/L BUN (7-17) mg/dL Creatinine (0.52-1.04) mg/dL Est GFR (CKD-EPI)AfAm (>60 ml/min/1.73 sqM) Est GFR (CKD-EPI)NonAf (>60 ml/min/1.73 sqM) Glucose (74-99) mg/dL Calcium (8.4-10.2) mg/dL Total Bilirubin (0.2-1.3) mg/dL AST (14-36) U/L ALT (4-34) U/L Alkaline Phosphatase (38-126) U/L Creatine Kinase (30-135) U/L Troponin I <0.012 (0.000-0.034) ng/mL Total Protein (6.3-8.2) g/dL Albumin (3.5-5.0) g/dL - Medical Decision Making This patient is an 82-year-old woman presenting after she had what she believes is TIA. She states that her phone had gone off and she wasn't able to pick it up to answer it. She states that it affected both arms. She had a strange numb feeling was not coordinated. The patient states the symptoms resolved. Her workup here not evident for acute stroke. Discussed admitting the patient and she wants to go home as she is feeling back to normal. Symptoms not classic for TIA as both arms. He be involved. She does have a neurologist and will follow with the neurologist. She'll return if any symptoms recur Vision had CT of the brain which I interpreted as being negative for acute bony injury or intracranial hemorrhage. Patient had chest x-ray which I interpreted as being negative for acute infiltrate, pneumothorax, congestive heart failure. Was pt. sent in by a medical professional or institution (, PA, BREAKDOWN PERSON, urgent care, hospital, or group home...) When possible be specific @ -[No] Did you speak to anyone other than the patient for history (EMS, parent, family, police, friend...)? What history was obtained from this source @ -[No] Did you review nursing and triage notes (agree or disagree)? Why? @ -[I reviewed and agree with nursing and triage notes] Were old charts reviewed (outside hosp., previous admission, EMS record, old EKG, old radiological studies, urgent care reports/EKG's, group home records)? Report findings @ -[old charts were reviewed] Differential Diagnosis (chest pain, altered mental status, abdominal pain women, abdominal pain men, vaginal bleeding, weakness, fever, dyspnea, syncope, headache, dizziness, GI bleed, back pain, seizure, CVA, palpatations, mental health, musculoskeletal)? @ -[Differential Weakness: Hypoglycemia, shock, sepsis, hyponatremia, anemia, infection, GA, ETOH, adverse medicine reaction, overdose, stroke, this is not meant to be an all-inclusive list. EKG interpreted by me (3pts min.). @ -[As above] X-rays interpreted by me (1pt min.). @ -[As above CT interpreted by me (1pt min.). @ -[As above U/S interpreted by me (1pt. min.). @ -[None done] What testing was considered but not performed or refused? (CT, X-rays, U/S, labs)? Why? @ -[None] What meds were considered but not given or refused? Why? @ -[None] Did you discuss the management of the patient with other professionals (professionals i.e. , MARINA, BREAKDOWN PERSON, lab, RT, psych nurse, delinquency prevention social worker, mig welder, teacher, medical scientific officer, manager case)? Give summary @ -[No] Was smoking cessation discussed for >3mins.? @ -[No] Was critical care preformed (if so, how long)? @ -[No] Were there social determinants of health that impacted care today? How? (Homelessness, low income, unemployed, alcoholism, drug addiction, transportation, low edu. Level, literacy, decrease access to med. care, senior living, rehab)? @ -[No] Was there de-escalation of care discussed even if they declined (Discuss DNR or withdrawal of care, Hospice)? DNR status @ -[No] What co-morbidities impacted this encounter? (DM, HTN, Smoking, COPD, CAD, Cancer, CVA, ARF, Chemo, Hep., AIDS, mental health diagnosis, sleep apnea, morbid obesity)? @ -[None] Was patient admitted / discharged? Hospital course, mention meds given and route, prescriptions, significant lab abnormalities, going to OR and other pertinent info. @ -[The patient is discharged with close follow-up to neurology and strict return parameters Undiagnosed new problem with uncertain prognosis? @ -[No] Drug Therapy requiring intensive monitoring for toxicity (Heparin, Nitro, Insulin, Cardizem)? @ -[No] Were any procedures done? @ -[No] Diagnosis/symptom? @ -[Tremor Acute, or Chronic, or Acute on Chronic? @ -[Acute on chronic Uncomplicated (without systemic symptoms) or Complicated (systemic symptoms)? @ -[Uncomplicated Side effects of treatment? @ -[No] Exacerbation, Progression, or Severe Exacerbation? @ -[No] Poses a threat to life or bodily function? How? (Chest pain, USA, GA, pneumonia, PE, COPD, DKA, ARF, appy, cholecystitis, CVA, Diverticulitis, Homicidal, Suicidal, threat to staff... 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, 02/2020 TIA, TIA 10/2022, carotid stenosis with L carotid endartectomy, pt states she has had irregular heart beat in past but cannot recall type, aortic stenosis/regurgitation, vertigo, balance issues-uses walker, back pain/disc problems, benign colon polyp,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 Last Myocardial Infarction Date:: 2000 History of Any Multi-Drug Resistant Organisms: None Reported Past Surgical History: AICD, Appendectomy, Bowel Resection, Cholecystectomy, Coronary Bypass/CABG, Heart Catheterization With Stent, Hernia Repair, Orthopedic Surgery Additional Past Surgical History / Comment(s): Arch studies, 2000 PCI with stents, 2002 CABG-3 vessel, 2002 AICD, AICD gen changes, DFTs, 2002 L carotid endartectomy, bowel resection for benign flat polyp, abdominal hernia repair, L hip fracture with surgery, L arm benign lesion removed, colonoscopies/polyps, ALEXIS Past Anesthesia/Blood Transfusion Reactions: No Reported Reaction, Motion Sickness Additional Past Anesthesia/Blood Transfusion Reaction / Comment(s): woke up during battery replacement in defibrillator Date of Last Stent Placement:: 2000 Type of Cardiac Device: AICD Device Placement Date:: 2002- [employer] Past Psychological History: Anxiety Smoking Status: Former smoker Past Alcohol Use History: None Reported Past Drug Use History: None Reported - Past Family History Sister(s) Family Medical History: Cancer Additional Family Medical History / Comment(s): Sister had breast/bladder cancers. Son(s) Family Medical History: Cancer Additional Family Medical History / Comment(s): pancreatic cancer Father Family Medical History: Cancer Additional Family Medical History / Comment(s): Bowel cancer. Mother Family Medical History: Cancer Additional Family Medical History / Comment(s): Mother had bowel cancer twice and 2nd time metastasized to her kidney. Course Vital Signs 01/04/23 01/04/23 01/04/23 15:27 15:31 16:00 Temperature 98.2 F Pulse Rate 64 65 62 Respiratory 18 16 17 Rate Blood Pressure 129/90 128/74 129/90 O2 Sat by Pulse 97 96 97 Oximetry 01/04/23 01/04/23 01/04/23 17:00 17:35 19:33 Temperature Pulse Rate 64 77 Respiratory 16 18 Rate Blood Pressure 132/69 125/70 119/77 O2 Sat by Pulse 96 95 Oximetry Disposition Clinical Impression: Tremor Disposition: HOME SELF-CARE Condition: Good Prescriptions: levETIRAcetam [Keppra] 250 mg PO Q12HR #30 tab Is patient prescribed a controlled substance at d/c from ED?: No Referrals: Nishant Huffman DO [Primary Care Provider] - 1-2 days Adams Yang MD [STAFF PHYSICIAN] - 1-2 days
[2023-01-04 17:02] LABS: Basophils % (A) 0 %; Eosinophils # (A) 0.1 k/uL (0-0.7); Eosinophils % (A) 2 %; HCT 34.1 % (34.0-46.0); HGB 11.5 gm/dL (11.4-16.0); Lymphocytes # (A) 1.2 k/uL (1.0-4.8); Lymphocytes % (A) 18 %; MCH 31.1 pg (25.0-35.0); MCHC 33.8 g/dL (31.0-37.0); MCV 92.1 fL (80.0-100.0); Mean Platelet Volume 7.9; Monocytes # (A) 0.4 k/uL (0-1.0); Monocytes % (A) 6 %; Neutrophils # (A) 5.1 k/uL (1.3-7.7); Neutrophils % (A) 73 %; Platelet Count 168 k/uL (150-450); RBC 3.71 m/uL (3.80-5.40); WBC 6.9 k/uL (3.8-10.6)
[2023-01-04 17:11] LABS: Partial Thromboplastin Time 27.9 sec (22.0-30.0); Prothrombin Time 10.9 sec (9.0-12.0)
[2023-01-04 17:15] LABS: ALT 18 U/L (4-34); AST 32 U/L (14-36); African American GFR (CKD) 76 (>60 ml/min/1.73 sqM); Albumin 4.2 g/dL (3.5-5.0); Alkaline Phosphatase 83 U/L (38-126); Anion Gap 8 mmol/L; Blood Urea Nitrogen 13 mg/dL (7-17); Carbon Dioxide 27 mmol/L (22-30); Chloride 99 mmol/L (98-107); Creatine Kinase 145 U/L (30-135); Glucose 114 mg/dL (74-99); Non-African American GFR(CKD) 66 (>60 ml/min/1.73 sqM); Potassium 4.1 mmol/L (3.5-5.1); Sodium 134 mmol/L (137-145); Total Bilirubin 2.1 mg/dL (0.2-1.3); Total Protein 6.6 g/dL (6.3-8.2)
--- NOTE | 2023-01-04 17:20 | CT ---
EXAMINATION TYPE: CT brain wo con for TPA CT DLP: 1094.4 mGycm, Automated exposure control for dose reduction was used. DATE OF EXAM: 01/04/2023 5:14 PM COMPARISON: 12/08/2022. CLINICAL INDICATION:Female, 82 years old with history of Neuro deficit, acute, stroke suspected, weak ness TECHNIQUE: Brain: Axial CT images of the brain were obtained with coronal and sagittal reformats created and rev iewed. Contrast used: None. Oral contrast used: None. FINDINGS: Brain: Extra-axial spaces: No abnormal extra-axial fluid collections. Ventricular system: Dilatation in proportion to cerebral atrophy. Cerebral parenchyma: Cerebral atrophy. Bilateral thomas radiata injuries. No acute intraparenchymal h emorrhage or mass effect. The ordaz-white junction is well differentiated. Scattered hypoattenuating areas are seen within the white matter. Cerebellum: Unremarkable. Mass effect: No evidence of midline shift. Intracranial vasculature: Atherosclerotic calcifications of the intracranial vessels. Soft tissues: Normal. Calvarium/osseous structures: No depressed skull fracture. Paranasal sinuses and mastoid air cells: Mild scattered paranasal sinus disease. Visualized orbits: Bilateral aphakia IMPRESSION: 1. No acute intracranial process. 2. 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
--- NOTE | 2023-01-04 17:32 | XR ---
EXAMINATION TYPE: XR chest 2V DATE OF EXAM: 01/04/2023 5:20 PM COMPARISON: Chest radiographs from 12/08/2022 TECHNIQUE: XR chest 2V Frontal and lateral views of the chest. CLINICAL INDICATION:Female, 82 years old with history of altered mental status; FINDINGS: Lungs/Pleura: There is no evidence of pleural effusion, focal consolidation, or pneumothorax. Pulmonary vascularity: Unremarkable. Heart/mediastinum: Cardiomediastinal silhouette is prominent in size. Aortic valve repair changes. At herosclerotic calcifications are seen in the aorta. Two lead cardiac conduction device overlying the left hemithorax with lead tips projecting over the right ventricle and right atrium. Musculoskeletal: No acute osseous pathology. Midline sternotomy wires are noted. IMPRESSION: No acute cardiopulmonary disease/process.
[2023-01-04 17:37] VITALS: PULSE 77
[2023-01-04] MEDS ORDERED: levETIRAcetam 500 MG TAB PO STA (18:46)
[2023-01-04 19:35] VITALS: BP 119/77
--- NOTE | 2023-01-05 17:30 | P.PN ---
Progress Note - Text Progress Note Date: 01/05/23 It seems the patient had 2.5 hours video EEG as outpatient in our facility and pending read. I reached out to the patient to make sure of how she is doing. I spoke with the patient's grand-daughter via phone and she stated the patient has been more confused and having intermittent shaking of bilateral hands that are brief and yesterday she had shaking of the right hand that she could not control. Yesterday she presented to our ED and was started on Keppra 250mg bid but it seems patient could not tolerate medication and was vomiting. Patient does not foam or lose consciousness with these episodes. She has not followed- up with neurology team since she does not feels these episodes are seizures. I will perscribed a different anti-seizure medication, Vimpat 50mg 1 tab bid. I notified grand-daughter if no improvement then needs to comes to the ED immediately. She will attempt to follow-up with neurologist. I called in her new script.
== END 2023-01-04 19:36 | disposition home or self-care (01) ==
LOC: EC 15:22
DX: R25.1 Tremor, unspecified (principal); I10 Essential (primary) hypertension; I25.2 Old myocardial infarction; J44.9 Chronic obstructive pulmonary disease, unspecified; I25.10 Atherosclerotic heart disease of native coronary artery without angina pectoris; E78.5 Hyperlipidemia, unspecified; Z86.73 Personal history of transient ischemic attack (TIA), and cerebral infarction without residual deficits; Z87.891 Personal history of nicotine dependence; Z79.51 Long term (current) use of inhaled steroids; Z79.899 Other long term (current) drug therapy
CPT/HCPCS: 36415; 70450; 71046; 80053; 82550; 84484; 85025; 85610; 85730; 93005; 99285

== ENCOUNTER → 2023-01-05 | Outpatient (CLI) | payer MEDICARE, BC | LOC: NEUROMAIN 12:19 | PROVIDERS: ATTEND Student in an Organized Health Care Education/Training Program | DX: G81.94 Hemiplegia, unspecified affecting left nondominant side (principal); F17.200 Nicotine dependence, unspecified, uncomplicated | CPT/HCPCS: 95700; 95713 ==

== ENCOUNTER 2023-01-26 11:13 | Emergency (ER) | payer MEDICARE, BC ==
[2023-01-26 11:18] VITALS: TEMP 97.8
[2023-01-26 12:35] VITALS: RESP 18
[2023-01-26] MEDS ORDERED: PANTOPRAZOLE 40 MG/10 ML VIAL IVP STA (12:35)
--- NOTE | 2023-01-26 12:36 | ED ---
General Adult HPI - General Chief complaint: GI Bleed Stated complaint: poss GI bleed Time Seen by Provider: 01/26/23 11:59 Source: patient Mode of arrival: wheelchair Limitations: no limitations - History of Present Illness Initial comments: Dictation was produced using [facility] dictation software. please excuse any grammatical, word or spelling errors. Chief Complaint: 82-year-old female past medical history of GI bleed presents to the ER for black and tarry stools History of Present Illness: Is a 82-year-old female she has past medical history of GI bleed. Patient takes anticoagulation medications. Patient reports over last 3 days she has had black and tarry stools. Patient has any abdominal pain. No rectal pain. Denies any lightheadedness. Patient otherwise does not have any symptoms or medical complaints. The ROS documented in this emergency department record has been reviewed and confirmed by me. Those systems with pertinent positive or negative responses have been documented in the HPI. All other systems are other negative and/or noncontributory. - Related Data Home Medications Medication Instructions Recorded Confirmed Atorvastatin [Lipitor] 80 mg PO DAILY 01/03/16 01/26/23 Cyanocobalamin (Vitamin B-12) 1,000 mcg PO DAILY 03/08/20 01/26/23 [Vitamin B-12] Budesonide [Pulmicort] 0.5 mg INHALATION RT-BID 10/02/21 01/26/23 calcium polycarbophiL [Fibercon] 625 mg PO DAILY 10/02/21 01/26/23 Cholecalciferol [Vitamin D3 (25 25 mcg PO DAILY 12/31/22 01/26/23 Mcg = 1000 Iu)] Previous Rx's Medication Instructions Recorded Pantoprazole [Protonix] 40 mg PO AC-BID #60 tab 10/09/21 carvediloL [Coreg] 3.125 mg PO BID-W/MEALS #60 tab 10/09/21 Acetaminophen Tab [Tylenol] 650 mg PO Q4HR PRN tab 03/05/22 Apixaban [Eliquis] 5 mg PO BID #60 tab 11/09/22 Allergies Allergy/AdvReac Type Severity Reaction Status Date / Time lacosamide [From Vimpat] AdvReac AMS Verified 01/26/23 13:55 levetiracetam [From Keppra] AdvReac AMS Verified 01/26/23 13:55 Review of Systems ROS Statement: Those systems with pertinent positive or pertinent negative responses have been documented in the HPI. ROS Other: All systems not noted in ROS Statement are negative. 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, 02/2020 TIA, TIA 10/2022, carotid stenosis with L carotid endartectomy, pt states she has had irregular heart beat in past but cannot recall type, aortic stenosis/regurgitation, vertigo, balance issues-uses walker, back pain/disc problems, benign colon polyp,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 Last Myocardial Infarction Date:: 2000 History of Any Multi-Drug Resistant Organisms: None Reported Past Surgical History: AICD, Appendectomy, Bowel Resection, Cholecystectomy, Coronary Bypass/CABG, Heart Catheterization With Stent, Hernia Repair, Orthopedic Surgery Additional Past Surgical History / Comment(s): Arch studies, 2000 PCI with stents, 2002 CABG-3 vessel, 2002 AICD, AICD gen changes, DFTs, 2002 L carotid endartectomy, bowel resection for benign flat polyp, abdominal hernia repair, L hip fracture with surgery, L arm benign lesion removed, colonoscopies/polyps, ALEXIS Past Anesthesia/Blood Transfusion Reactions: No Reported Reaction, Motion Sickness Additional Past Anesthesia/Blood Transfusion Reaction / Comment(s): woke up during battery replacement in defibrillator Date of Last Stent Placement:: 2000 Type of Cardiac Device: AICD Device Placement Date:: 2002- [employer] Past Psychological History: Anxiety Smoking Status: Former smoker Past Alcohol Use History: None Reported Past Drug Use History: None Reported - Past Family History Sister(s) Family Medical History: Cancer Additional Family Medical History / Comment(s): Sister had breast/bladder cancers. Son(s) Family Medical History: Cancer Additional Family Medical History / Comment(s): pancreatic cancer Father Family Medical History: Cancer Additional Family Medical History / Comment(s): Bowel cancer. Mother Family Medical History: Cancer Additional Family Medical History / Comment(s): Mother had bowel cancer twice and 2nd time metastasized to her kidney. General Exam - General Exam Comments Initial Comments: PHYSICAL EXAM: General Impression: Alert and oriented x3, not in acute distress HEENT: Normocephalic atraumatic, extra-ocular movements intact, pupils equal and reactive to light bilaterally, mucous membranes moist. Cardiovascular: Heart regular rate and rhythm Chest: Able to complete full sentences, no retractions, no tachypnea Abdomen: abdomen soft, non-tender, non-distended, no organomegaly Musculoskeletal: Pulses present and equal in all extremities, no peripheral timothy a Motor: no focal deficits noted Neurological: CN II-XII grossly intact, no focal motor or sensory deficits noted Skin: Intact with no visualized rashes Psych: Normal affect and mood Digital rectal exam shows dark stool residue. No gross blood Limitations: no limitations Course Vital Signs 01/26/23 01/26/23 11:15 12:34 Temperature 97.8 F Pulse Rate 66 70 Respiratory 16 18 Rate Blood Pressure 115/63 128/71 O2 Sat by Pulse 96 96 Oximetry Medical Decision Making - Medical Decision Making Was pt. sent in by a medical professional or institution (, PA, MUSEUM SPECIALIST, urgent care, hospital, or shelter...) When possible be specific @ -No Did you speak to anyone other than the patient for history (EMS, parent, family, police, friend...)? What history was obtained from this source @ -No Did you review nursing and triage notes (agree or disagree)? Why? @ -I reviewed and agree with nursing and triage notes Were old charts reviewed (outside hosp., previous admission, EMS record, old EKG, old radiological studies, urgent care reports/EKG's, shelter records)? Report findings @ -No old charts were reviewed Differential Diagnosis (chest pain, altered mental status, abdominal pain women, abdominal pain men, vaginal bleeding, musculoskeletal, weakness, fever, dyspnea, syncope, headache, dizziness, GI bleed, back pain, seizure, CVA, palpatations, mental health)? @ -Differential GI Bleed: Esophageal varices, aortoenteric fistula, Cecelia-Melara, gastritis, peptic ulcer disease, diverticulosis, inflammatory bowel disease, hemorrhoids, fissure, col itis, malignancy, Meckels diverticulum, this is not meant to be an all- inclusive list. EKG interpreted by me (3pts min.). @ -None done X-rays interpreted by me (1pt min.). @ -None done CT interpreted by me (1pt min.). @ -None done U/S interpreted by me (1pt. min.). @ -None done What testing was considered but not performed or refused? (CT, X-rays, U/S, labs)? Why? @ -None What meds were considered but not given or refused? Why? @ -None Did you discuss the management of the patient with other professionals (professionals i.e. , PA, MUSEUM SPECIALIST, lab, RT, psych nurse, social work assistant, hurl shaker, teacher, mounted police officer, telephonic nurse case manager)? Give summary @ -Discussed with Dr. Wetzel of GI at [facility] Was smoking cessation discussed for >3mins.? @ -No Was critical care preformed (if so, how long)? @ -No Were there social determinants of health that impacted care today? How? (Homelessness, low income, unemployed, alcoholism, drug addiction, transportation, low edu. Level, literacy, decrease access to med. care, residential, rehab)? @ -No Was there de-escalation of care discussed even if they declined (Discuss DNR or withdrawal of care, Hospice)? DNR status @ -No What co-morbidities impacted this encounter? (DM, HTN, Smoking, COPD, CAD, Cancer, CVA, ARF, Chemo, Hep., AIDS, mental health diagnosis, sleep apnea, morbid obesity)? @ -None Was patient admitted / discharged? Hospital course, mention meds given and route, prescriptions, significant lab abnormalities, going to OR and other pertinent info. @ -82 Year-old female presents emergency Department with black and tarry stools. She has history of GI bleed. Vital signs are stable. Laboratory evaluation obtained. Hemoglobin 8.7. Rest of labs within acceptable limits. Stool occult blood positive. Will not have GI coverage this week. Patient requests transfer to [facility]. Case discussed with GI Dr. Wetzel at [place]. Accepting physician is Dr. Pham. Patient given Protonix. Undiagnosed new problem with uncertain prognosis? @ -No Drug Therapy requiring intensive monitoring for toxicity (Heparin, Nitro, Insulin, Cardizem)? @ -No Were any procedures done? @ -No Diagnosis/symptom? Acute, or Chronic, or Acute on Chronic? Uncomplicated (without systemic symptoms) or Complicated (systemic symptoms)? @ -1. Anemia secondary to GI bleed Side effects of treatment? @ -No Exacerbation, Progression, or Severe Exacerbation? @ -No Poses a threat to life or bodily function? How? (Chest pain, USA, NE, pneumonia, PE, COPD, DKA, ARF, appy, cholecystitis, CVA, Diverticulitis, Homicidal, Suicidal, threat to staff... and all critical care pts) @ -No - Lab Data Result diagrams: 01/26/23 12:25 01/26/23 12:25 Lab Results 01/26/23 01/26/23 01/26/23 Range/Units 12:25 12:25 12:25 WBC 9.2 (3.8-10.6) k/uL RBC 2.95 L (3.80-5.40) m/uL Hgb 8.7 L D (11.4-16.0) gm/dL Hct 26.6 L (34.0-46.0) % MCV 90.1 (80.0-100.0) fL MCH 29.4 (25.0-35.0) pg MCHC 32.6 (31.0-37.0) g/dL RDW 14.7 (11.5-15.5) % Plt Count 228 (150-450) k/uL MPV 7.9 Neutrophils % 75 % Lymphocytes % 15 % Monocytes % 6 % Eosinophils % 1 % Basophils % 0 % Neutrophils # 6.9 (1.3-7.7) k/uL Lymphocytes # 1.4 (1.0-4.8) k/uL Monocytes # 0.6 (0-1.0) k/uL Eosinophils # 0.1 (0-0.7) k/uL Basophils # 0.0 (0-0.2) k/uL Hypochromasia Slight PT 10.4 (9.0-12.0) sec INR 1.0 (<1.2) APTT 26.5 (22.0-30.0) sec Sodium 134 L (137-145) mmol/L Potassium 4.6 (3.5-5.1) mmol/L Chloride 99 (98-107) mmol/L Carbon Dioxide 29 (22-30) mmol/L Anion Gap 6 mmol/L BUN 23 H (7-17) mg/dL Creatinine 0.82 (0.52-1.04) mg/dL Est GFR (CKD-EPI)AfAm 78 (>60 ml/min/1.73 sqM) Est GFR (CKD-EPI)NonAf 68 (>60 ml/min/1.73 sqM) Glucose 98 (74-99) mg/dL Calcium 9.4 (8.4-10.2) mg/dL Stool Occult Blood (Negative) Blood Type Blood Type Recheck Bld Type Recheck Status Antibody Screen Spec Expiration Date 01/26/23 01/26/23 Range/Units 12:25 12:25 WBC (3.8-10.6) k/uL RBC (3.80-5.40) m/uL Hgb (11.4-16.0) gm/dL Hct (34.0-46.0) % MCV (80.0-100.0) fL MCH (25.0-35.0) pg MCHC (31.0-37.0) g/dL RDW (11.5-15.5) % Plt Count (150-450) k/uL MPV Neutrophils % % Lymphocytes % % Monocytes % % Eosinophils % % Basophils % % Neutrophils # (1.3-7.7) k/uL Lymphocytes # (1.0-4.8) k/uL Monocytes # (0-1.0) k/uL Eosinophils # (0-0.7) k/uL Basophils # (0-0.2) k/uL Hypochromasia PT (9.0-12.0) sec INR (<1.2) APTT (22.0-30.0) sec Sodium (137-145) mmol/L Potassium (3.5-5.1) mmol/L Chloride (98-107) mmol/L Carbon Dioxide (22-30) mmol/L Anion Gap mmol/L BUN (7-17) mg/dL Creatinine (0.52-1.04) mg/dL Est GFR (CKD-EPI)AfAm (>60 ml/min/1.73 sqM) Est GFR (CKD-EPI)NonAf (>60 ml/min/1.73 sqM) Glucose (74-99) mg/dL Calcium (8.4-10.2) mg/dL Stool Occult Blood Positive H (Negative) Blood Type O Positive Blood Type Recheck O Pos Bld Type Recheck Status No Antibody Screen NEGATIVE Spec Expiration Date 01/29/20232324 Disposition Clinical Impression: GI bleed Disposition: OTHER INSTITUTION NOT DEFINED Condition: Fair Referrals: Nishant Huffman DO [Primary Care Provider] - 1-2 days Time of Disposition: 14:11 - Out of Hospital Transfer - Req. Specs Out of Hospital Transfer - Requested Specifics: Other Emergency Center ([facility]
[2023-01-26 13:01] LABS: Basophils % (A) 0 %; Eosinophils # (A) 0.1 k/uL (0-0.7); Eosinophils % (A) 1 %; HCT 26.6 % (34.0-46.0); Hypochromasia Slight; Lymphocytes # (A) 1.4 k/uL (1.0-4.8); Lymphocytes % (A) 15 %; MCH 29.4 pg (25.0-35.0); MCHC 32.6 g/dL (31.0-37.0); MCV 90.1 fL (80.0-100.0); Mean Platelet Volume 7.9; Monocytes # (A) 0.6 k/uL (0-1.0); Monocytes % (A) 6 %; Neutrophils # (A) 6.9 k/uL (1.3-7.7); Neutrophils % (A) 75 %; Platelet Count 228 k/uL (150-450); RBC 2.95 m/uL (3.80-5.40); RDW 14.7 % (11.5-15.5); WBC 9.2 k/uL (3.8-10.6)
[2023-01-26 13:04] LABS: HGB 8.7 gm/dL (11.4-16.0)
[2023-01-26 13:06] LABS: Partial Thromboplastin Time 26.5 sec (22.0-30.0); Prothrombin Time 10.4 sec (9.0-12.0)
[2023-01-26 13:12] LABS: Potassium 4.6 mmol/L (3.5-5.1)
[2023-01-26 13:13] LABS: African American GFR (CKD) 78 (>60 ml/min/1.73 sqM); Anion Gap 6 mmol/L; Blood Urea Nitrogen 23 mg/dL (7-17); Calcium 9.4 mg/dL (8.4-10.2); Carbon Dioxide 29 mmol/L (22-30); Chloride 99 mmol/L (98-107); Glucose 98 mg/dL (74-99); Non-African American GFR(CKD) 68 (>60 ml/min/1.73 sqM); Sodium 134 mmol/L (137-145)
[2023-01-26] MEDS ORDERED: SODIUM CHLORIDE 0.9% 1,000 ML IV STA (13:55)
[2023-01-26 16:34] VITALS: BP 122/73; PULSE 68
== END 2023-01-26 16:36 | disposition other institution (70) ==
LOC: EC 11:13
DX: K92.2 Gastrointestinal hemorrhage, unspecified (principal); I48.91 Unspecified atrial fibrillation; I25.2 Old myocardial infarction; J44.9 Chronic obstructive pulmonary disease, unspecified; M19.90 Unspecified osteoarthritis, unspecified site; I25.10 Atherosclerotic heart disease of native coronary artery without angina pectoris; I10 Essential (primary) hypertension; E78.5 Hyperlipidemia, unspecified; F41.9 Anxiety disorder, unspecified; Z86.73 Personal history of transient ischemic attack (TIA), and cerebral infarction without residual deficits; Z88.8 Allergy status to other drugs, medicaments and biological substances; Z79.51 Long term (current) use of inhaled steroids; Z79.899 Other long term (current) drug therapy
CPT/HCPCS: 36415; 86900; 86901; 80048; 85025; 85610; 85730; 86850; 82272; 99285; 96374; 96361 ×2; C9113

== ENCOUNTER 2023-06-22 00:22 | Inpatient (IN) | payer MEDICARE, BC ==
[2023-06-22 00:29] LABS: Glucose,Whole Blood 115 mg/dL (70-110)
[2023-06-22] MEDS ORDERED: SODIUM CHLORIDE 0.9% 1,000 ML IV STA ×2 (00:31→03:10)
[2023-06-22] MEDS ORDERED: hydrALAZINE HCL 20 MG/ML 1 ML VIAL IVP STA (00:32)
--- NOTE | 2023-06-22 00:33 | ED ---
Neuro HPI - General Chief Complaint: Neuro Symptoms/Deficit Stated Complaint: Slurred Speech Time Seen by Provider: 06/22/23 00:28 Source: EMS, RN notes reviewed, old records reviewed Mode of arrival: EMS Limitations: no limitations - History of Present Illness Is the patient presenting with stroke symptoms?: No -: hour(s) Initial Comments: This is a 82-year-old female DF for evaluation of possible CVA was severely elevated blood pressure home and some slurred speech. Patient had no neurological findings currently brought in by EMS for evaluation. Patient states she's been under a lot of stress with difficulty finding housing, putting a lot of stress on her relationship with her sister who she is currently living with. Patient does check her blood pressure and took her blood pressure tonight and was noted to be severely elevated. Location: speech History of same: No Place: home Severity: mild Improves With: time Worsens With: none On Anticoagulants: No Context: gradual onset Associated Symptoms: denies other symptoms Treatments Prior to Arrival: none - Related Data Home Medications: Home Medications Medication Instructions Recorded Confirmed Atorvastatin [Lipitor] 80 mg PO HS 01/03/16 06/22/23 Clopidogrel [Plavix] 75 mg PO HS 06/22/23 06/22/23 Ferrous Sulfate [Feosol] 325 mg PO DAILY 06/22/23 06/22/23 Pantoprazole [Protonix] 40 mg PO BID 06/22/23 06/22/23 carvediloL [Coreg] 3.125 mg PO BID 06/22/23 06/22/23 Allergies/Adverse Reactions: Allergies Allergy/AdvReac Type Severity Reaction Status Date / Time lacosamide [From Vimpat] AdvReac AMS Verified 06/22/23 07:15 levetiracetam [From Keppra] AdvReac AMS Verified 06/22/23 07:15 Review of Systems ROS Statement: Those systems with pertinent positive or pertinent negative responses have been documented in the HPI. ROS Other: All systems not noted in ROS Statement are negative. General Exam - General Exam Comments Initial Comments: NIH 0 General appearance: alert, in no apparent distress, anxious Head exam: Present: atraumatic, normocephalic, normal inspection Eye exam: Present: normal appearance, PERRL, EOMI. Absent: scleral icterus, conjunctival injection, periorbital swelling ENT exam: Present: normal exam, mucous membranes moist Neck exam: Present: normal inspection. Absent: tenderness, meningismus, lym phadenopathy Respiratory exam: Present: normal lung sounds bilaterally. Absent: respiratory distress, wheezes, rales, rhonchi, stridor Cardiovascular Exam: Present: regular rate, normal rhythm, normal heart sounds. Absent: systolic murmur, diastolic murmur, rubs, gallop, clicks GI/Abdominal exam: Present: soft, normal bowel sounds. Absent: distended, tenderness, guarding, rebound, rigid Extremities exam: Present: normal inspection, full ROM, normal capillary refill. Absent: tenderness, pedal edema, joint swelling, calf tenderness Back exam: Present: normal inspection Neurological exam: Present: alert, oriented X3, CN II-XII intact Psychiatric exam: Present: normal affect, normal mood Skin exam: Present: warm, dry, intact, normal color. Absent: rash Stroke MDM - Lab Data Result diagrams: 06/22/23 00:42 06/22/23 00:42 Lab Results 06/22/23 06/22/23 06/22/23 Range/Units 00:28 00:42 00:42 WBC 11.0 H (3.8-10.6) k/uL RBC 4.58 (3.80-5.40) m/uL Hgb 13.7 (11.4-16.0) gm/dL Hct 41.2 (34.0-46.0) % MCV 90.0 (80.0-100.0) fL MCH 29.9 (25.0-35.0) pg MCHC 33.3 (31.0-37.0) g/dL RDW 18.6 H (11.5-15.5) % Plt Count 175 (150-450) k/uL MPV 7.5 Neutrophils % 74 % Lymphocytes % 16 % Monocytes % 6 % Eosinophils % 2 % Basophils % 1 % Neutrophils # 8.1 H (1.3-7.7) k/uL Lymphocytes # 1.8 (1.0-4.8) k/uL Monocytes # 0.7 (0-1.0) k/uL Eosinophils # 0.2 (0-0.7) k/uL Basophils # 0.1 (0-0.2) k/uL Anisocytosis Slight PT (10.0-12.5) sec INR (<1.2) APTT (22.0-30.0) sec Sodium (137-145) mmol/L Potassium (3.5-5.1) mmol/L Chloride (98-107) mmol/L Carbon Dioxide (22-30) mmol/L Anion Gap mmol/L BUN (7-17) mg/dL Creatinine (0.52-1.04) mg/dL Est GFR (CKD-EPI)AfAm (>60 ml/min/1.73 sqM) Est GFR (CKD-EPI)NonAf (>60 ml/min/1.73 sqM) Glucose (74-99) mg/dL POC Glucose (mg/dL) 115 H (70-110) mg/dL POC Glu Correctional Case Manager ID Dave Snell Plasma Lactic Acid Ezequiel (0.7-2.0) mmol/L Calcium (8.4-10.2) mg/dL Phosphorus (2.5-4.5) mg/dL Magnesium (1.6-2.3) mg/dL Total Bilirubin (0.2-1.3) mg/dL AST (14-36) U/L ALT (4-34) U/L Alkaline Phosphatase (38-126) U/L Troponin I (0.000-0.034) ng/mL NT-Pro-B Natriuret Pep pg/mL Total Protein (6.3-8.2) g/dL Albumin (3.5-5.0) g/dL Triglycerides (0.00-149.00) mg/dL Cholesterol (0.00-200.00) mg/dL LDL Cholesterol, Calc (0.0-131.0) mg/dL VLDL Cholesterol, Calc (5.00-40.00) mg/dL HDL Cholesterol (40.00-60.00) mg/dL Cholesterol/HDL Ratio Ratio Urine Color Light Yellow Urine Appearance Cloudy H (Clear) Urine pH 8.0 (5.0-8.0) Ur Specific Crane 1.010 (1.001-1.035) Urine Protein Negative (Negative) Urine Glucose (UA) Negative (Negative) Urine Ketones Trace H (Negative) Urine Blood Negative (Negative) Urine Nitrite Negative (Negative) Urine Bilirubin Negative (Negative) Urine Urobilinogen 0.2 (<2.0) mg/dL Ur Leukocyte Esterase Moderate H (Negative) Urine RBC 2 (0-5) /hpf Urine WBC 24 H (0-5) /hpf Ur Squamous Epith Cells 1 (0-4) /hpf Amorphous Sediment Few H (None) /hpf Urine Bacteria Many H (None) /hpf Hyaline Casts 3 H (0-2) /lpf Urine Mucus Rare H (None) /hpf 06/22/23 06/22/23 06/22/23 Range/Units 00:42 00:42 00:42 WBC (3.8-10.6) k/uL RBC (3.80-5.40) m/uL Hgb (11.4-16.0) gm/dL Hct (34.0-46.0) % MCV (80.0-100.0) fL MCH (25.0-35.0) pg MCHC (31.0-37.0) g/dL RDW (11.5-15.5) % Plt Count (150-450) k/uL MPV Neutrophils % % Lymphocytes % % Monocytes % % Eosinophils % % Basophils % % Neutrophils # (1.3-7.7) k/uL Lymphocytes # (1.0-4.8) k/uL Monocytes # (0-1.0) k/uL Eosinophils # (0-0.7) k/uL Basophils # (0-0.2) k/uL Anisocytosis PT (10.0-12.5) sec INR (<1.2) APTT (22.0-30.0) sec Sodium 139 (137-145) mmol/L Potassium 4.7 (3.5-5.1) mmol/L Chloride 101 (98-107) mmol/L Carbon Dioxide 29 (22-30) mmol/L Anion Gap 9 mmol/L BUN 22 H (7-17) mg/dL Creatinine 0.89 (0.52-1.04) mg/dL Est GFR (CKD-EPI)AfAm 71 (>60 ml/min/1.73 sqM) Est GFR (CKD-EPI)NonAf 61 (>60 ml/min/1.73 sqM) Glucose 114 H (74-99) mg/dL POC Glucose (mg/dL) (70-110) mg/dL POC Glu Correctional Case Manager ID Plasma Lactic Acid Ezequiel (0.7-2.0) mmol/L Calcium 10.5 H (8.4-10.2) mg/dL Phosphorus 4.2 (2.5-4.5) mg/dL Magnesium 2.2 (1.6-2.3) mg/dL Total Bilirubin 1.3 (0.2-1.3) mg/dL AST 30 (14-36) U/L ALT 19 (4-34) U/L Alkaline Phosphatase 147 H (38-126) U/L Troponin I <0.012 (0.000-0.034) ng/mL NT-Pro-B Natriuret Pep 310 pg/mL Total Protein 7.3 (6.3-8.2) g/dL Albumin 4.5 (3.5-5.0) g/dL Triglycerides 113.00 (0.00-149.00) mg/dL Cholesterol 118.00 (0.00-200.00) mg/dL LDL Cholesterol, Calc 30.7 (0.0-131.0) mg/dL VLDL Cholesterol, Calc 22.60 (5.00-40.00) mg/dL HDL Cholesterol 64.70 H (40.00-60.00) mg/dL Cholesterol/HDL Ratio 1.82 Ratio Urine Color Urine Appearance (Clear) Urine pH (5.0-8.0) Ur Specific Crane (1.001-1.035) Urine Protein (Negative) Urine Glucose (UA) (Negative) Urine Ketones (Negative) Urine Blood (Negative) Urine Nitrite (Negative) Urine Bilirubin (Negative) Urine Urobilinogen (<2.0) mg/dL Ur Leukocyte Esterase (Negative) Urine RBC (0-5) /hpf Urine WBC (0-5) /hpf Ur Squamous Epith Cells (0-4) /hpf Amorphous Sediment (None) /hpf Urine Bacteria (None) /hpf Hyaline Casts (0-2) /lpf Urine Mucus (None) /hpf 06/22/23 06/22/23 Range/Units 00:47 00:47 WBC (3.8-10.6) k/uL RBC (3.80-5.40) m/uL Hgb (11.4-16.0) gm/dL Hct (34.0-46.0) % MCV (80.0-100.0) fL MCH (25.0-35.0) pg MCHC (31.0-37.0) g/dL RDW (11.5-15.5) % Plt Count (150-450) k/uL MPV Neutrophils % % Lymphocytes % % Monocytes % % Eosinophils % % Basophils % % Neutrophils # (1.3-7.7) k/uL Lymphocytes # (1.0-4.8) k/uL Monocytes # (0-1.0) k/uL Eosinophils # (0-0.7) k/uL Basophils # (0-0.2) k/uL Anisocytosis PT 10.7 (10.0-12.5) sec INR 1.0 (<1.2) APTT 30.0 (22.0-30.0) sec Sodium (137-145) mmol/L Potassium (3.5-5.1) mmol/L Chloride (98-107) mmol/L Carbon Dioxide (22-30) mmol/L Anion Gap mmol/L BUN (7-17) mg/dL Creatinine (0.52-1.04) mg/dL Est GFR (CKD-EPI)AfAm (>60 ml/min/1.73 sqM) Est GFR (CKD-EPI)NonAf (>60 ml/min/1.73 sqM) Glucose (74-99) mg/dL POC Glucose (mg/dL) (70-110) mg/dL POC Glu Correctional Case Manager ID Plasma Lactic Acid Ezequiel 0.8 (0.7-2.0) mmol/L Calcium (8.4-10.2) mg/dL Phosphorus (2.5-4.5) mg/dL Magnesium (1.6-2.3) mg/dL Total Bilirubin (0.2-1.3) mg/dL AST (14-36) U/L ALT (4-34) U/L Alkaline Phosphatase (38-126) U/L Troponin I (0.000-0.034) ng/mL NT-Pro-B Natriuret Pep pg/mL Total Protein (6.3-8.2) g/dL Albumin (3.5-5.0) g/dL Triglycerides (0.00-149.00) mg/dL Cholesterol (0.00-200.00) mg/dL LDL Cholesterol, Calc (0.0-131.0) mg/dL VLDL Cholesterol, Calc (5.00-40.00) mg/dL HDL Cholesterol (40.00-60.00) mg/dL Cholesterol/HDL Ratio Ratio Urine Color Urine Appearance (Clear) Urine pH (5.0-8.0) Ur Specific Crane (1.001-1.035) Urine Protein (Negative) Urine Glucose (UA) (Negative) Urine Ketones (Negative) Urine Blood (Negative) Urine Nitrite (Negative) Urine Bilirubin (Negative) Urine Urobilinogen (<2.0) mg/dL Ur Leukocyte Esterase (Negative) Urine RBC (0-5) /hpf Urine WBC (0-5) /hpf Ur Squamous Epith Cells (0-4) /hpf Amorphous Sediment (None) /hpf Urine Bacteria (None) /hpf Hyaline Casts (0-2) /lpf Urine Mucus (None) /hpf - NIH Stroke Scale 1a. Level of Consciousness: (0) alert 1b. LOC Questions: (0) answers correctly 1c. LOC Commands: (0) performs tasks correctly 2. Best Gaze: (0) normal 3. Visual: (0) no visual loss 4. Facial Palsy: (0) normal symmetrical movement 5a. Motor Arm Left: (0) no drift 5b. Motor Arm Right: (0) no drift 6a. Motor Leg Left: (0) no drift 6b. Motor Leg Right: (0) no drift 7. Limb Ataxia: (0) absent 8. Sensory: (0) normal 9. Best Language: (0) no aphasia 10. Dysarthria: (0) normal 11. Extinction/Inattention: (0) no abnormality - Medical Decision Making 82 female to the emergency department with possibility of slurred speech and severe elevated blood pressure, blood pressures well-controlled here in the ER patient's found of urinary tract infection but does not feel comfortable with discharge. She does appear to be sometimes confused, patient be admitted for further evaluation management - Radiology Data Radiology results: report reviewed (CT brain is negative for acute disease), image reviewed - EKG Data -: EKG Interpreted by Me (EKG sinus 65 KS 137 QRS 133 QTc 401) Past Medical History Past Medical History: Atrial Fibrillation, Coronary Artery Disease (CAD), COPD, CVA/TIA, GERD/Reflux, GI Bleed, Hyperlipidemia, Hypertension, Myocardial Infarction (NV), Osteoarthritis (OA), Vascular Disorder Additional Past Medical History / Comment(s): UTI, 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, 02/2020 TIA, TIA 10/2022, carotid stenosis with L carotid endartectomy, pt states she has had irregular heart beat in past but cannot recall type, aortic stenosis/regurgitation, vertigo, balance issues-uses walker, back pain/disc problems, benign colon polyp,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 Last Myocardial Infarction Date:: 2000 History of Any Multi-Drug Resistant Organisms: None Reported Past Surgical History: AICD, Appendectomy, Bowel Resection, Cholecystectomy, Coronary Bypass/CABG, Heart Catheterization With Stent, Hernia Repair, Orthopedic Surgery Additional Past Surgical History / Comment(s): Arch studies, 2000 PCI with stents, 2002 CABG-3 vessel, 2002 AICD, AICD gen changes, DFTs, 2002 L carotid endartectomy, bowel resection for benign flat polyp, abdominal hernia repair, L hip fracture with surgery, L arm benign lesion removed, colonoscopies/polyps, ALEXIS Past Anesthesia/Blood Transfusion Reactions: No Reported Reaction, Motion Sickness Additional Past Anesthesia/Blood Transfusion Reaction / Comment(s): woke up during battery replacement in defibrillator Date of Last Stent Placement:: 2000 Type of Cardiac Device: AICD Device Placement Date:: 2002- VidSys Past Psychological History: Anxiety Smoking Status: Former smoker Past Alcohol Use History: None Reported Past Drug Use History: None Reported - Past Family History Sister(s) Family Medical History: Cancer Additional Family Medical History / Comment(s): Sister had breast/bladder cancers. Son(s) Family Medical History: Cancer Additional Family Medical History / Comment(s): pancreatic cancer Father Family Medical History: Cancer Additional Family Medical History / Comment(s): Bowel cancer. Mother Family Medical History: Cancer Additional Family Medical History / Comment(s): Mother had bowel cancer twice and 2nd time metastasized to her kidney. Course Vital Signs 06/22/23 06/22/23 06/22/23 00:25 00:46 02:30 Temperature 97.8 F Pulse Rate 76 63 78 Pulse Rate [ Primer Inspector ] Respiratory 18 18 18 Rate Blood Pressure 205/111 171/98 168/88 Blood Pressure [Right Arm] O2 Sat by Pulse 95 95 99 Oximetry 06/22/23 06/22/23 06/22/23 04:00 06:00 07:44 Temperature 99.6 F Pulse Rate 84 84 78 Pulse Rate [ Primer Inspector ] Respiratory 18 18 18 Rate Blood Pressure 140/113 148/90 140/86 Blood Pressure [Right Arm] O2 Sat by Pulse 98 100 93 L Oximetry 06/22/23 06/22/23 06/22/23 08:18 09:35 10:02 Temperature Pulse Rate 78 77 78 Pulse Rate [ Primer Inspector ] Respiratory 17 16 16 Rate Blood Pressure 137/72 154/71 141/69 Blood Pressure [Right Arm] O2 Sat by Pulse 95 95 95 Oximetry 06/22/23 06/22/23 06/22/23 11:05 12:13 14:00 Temperature 98.7 F Pulse Rate 70 69 68 Pulse Rate [ Primer Inspector ] Respiratory 17 17 17 Rate Blood Pressure 139/77 143/89 136/92 Blood Pressure [Right Arm] O2 Sat by Pulse 94 L 95 94 L Oximetry 06/22/23 06/22/23 06/22/23 14:18 14:51 17:18 Temperature 98.6 F 97.8 F 98 F Pulse Rate Pulse Rate [ 74 71 Primer Inspector ] Respiratory 16 16 Rate Blood Pressure Blood Pressure 115/76 165/90 [Right Arm] O2 Sat by Pulse 93 L 93 L Oximetry 06/22/23 21:34 Temperature 97.6 F Pulse Rate 66 Pulse Rate [ Primer Inspector ] Respiratory 18 Rate Blood Pressure 165/90 Blood Pressure [Right Arm] O2 Sat by Pulse 97 Oximetry - Reevaluation(s) Reevaluation #1: 06/22/23 00:32 Medical records reviewed No code stroke this patient is currently without neurological symptoms Reevaluation #2: 06/22/23 A she remains without neurological findings here in the ER Reevaluation #3: 06/22/23 Patient informed results questions answered Patient is not comfortable with discharge home Reevaluation #4: 06/22/23 00:32 Was pt. sent in by a medical professional or institution (, PA, PAINTER HELPER SIGN, urgent care, hospital, or long term...) When possible be specific @ -no Did you speak to anyone other than the patient for history (EMS, parent, family, police, friend...)? What history was obtained from this source @ -no Did you review nursing and triage notes (agree or disagree)? Why? @ -agree Are old charts reviewed (outside hosp., previous admission, EMS record, old EKG, old radiological studies, urgent care reports/EKG's, long term records)? Report findings @ -yes Differential Diagnosis (chest pain, altered mental status, abdominal pain women, abdominal pain men, vaginal bleeding, weakness, fever, dyspnea, syncope, headache, dizziness, GI bleed, back pain, seizure, CVA, palpatations, mental health, musculoskeletal)? @ -prior EKG interpreted by me (3pts min.). @ -yes X-rays interpreted by me (1pt min.). @ -no CT interpreted by me (1pt min.). @ -yes U/S interpreted by me (1pt. min.). @ -no What testing was considered but not performed or refused? (CT, X-rays, U/S, labs)? Why? @ -none What meds were considered but not given or refused? Why? @ -none Did you discuss the management of the patient with other professionals (professionals i.e. , PA, PAINTER HELPER SIGN, lab, RT, psych nurse, social work case manager, rope cleaner, teacher, court officer, lead case manager)? Give summary @ -no Was smoking cessation discussed for >3mins.? @ -no Was critical care preformed (if so, how long)? @ -no Were there social determinants of health that impacted care today? How? (Homelessness, low income, unemployed, alcoholism, drug addiction, transportation, low edu. Level, literacy, decrease access to med. care, assisted, rehab)? @ -none Was there de-escalation of care discussed even if they declined (Discuss DNR or withdrawal of care, Hospice)? DNR status @ -no What co-morbidities impacted this encounter? (DM, HTN, Smoking, COPD, CAD, Cancer, CVA, ARF, Chemo, Hep., AIDS, mental health diagnosis, sleep apnea, morbid obesity)? @ -none Was patient admitted / discharged? Hospital course, mention meds given and route, prescriptions, significant lab abnormalities, going to OR and other pertinent info. @ - 82 female to the emergency department with possibility of slurred speech and severe elevated blood pressure, blood pressures well-controlled here in the ER patient's found of urinary tract infection but does not feel comfortable with discharge. She does appear to be sometimes confused, patient be admitted for further evaluation management Admitted Undiagnosed new problem with uncertain prognosis? @ -no Drug Therapy requiring intensive monitoring for toxicity (Heparin, Nitro, Insulin, Cardizem)? @ -no Were any procedures done? @ -no Diagnosis/symptom? @ -TIA, weakness, hypertension Acute, or Chronic, or Acute on Chronic? @ -Acute Uncomplicated (without systemic symptoms) or Complicated (systemic symptoms)? @ -Complicated Side effects of treatment? @ -no Exacerbation, Progression, or Severe Exacerbation? @ -exacerbation Poses a threat to life or bodily function? How? (Chest pain, USA, NV, pneumonia, PE, COPD, DKA, ARF, appy, cholecystitis, CVA, Diverticulitis, Homicidal, Suicidal, threat to staff... and all critical care pts) @ -yes significant extreme of age Reevaluation #5: 06/22/23 00:32 Differential CVA Ischemic stroke, hemorrhagic stroke, brain tumor, atypical migraine, Wernicke's encephalopathy, seizure, multiple sclerosis, meningitis, encephalitis, hypoglycemia, Guillain-Gilman, electrolytes disturbance, myasthenia gravis.... This is not meant to be an all-inclusive list - Consultations Consultation #1: Spoke with [facility] were agrees to admit this patient Critical Care Time Critical Care Time: Yes Total Critical Care Time: 31 Disposition Clinical Impression: History of TIAs, TIA (transient ischemic attack), Dizziness, Headache, UTI ( urinary tract infection), Hypertension, DOMINIC (acute kidney injury) Disposition: ADMITTED IP TO THIS HOSP Condition: Fair Is patient prescribed a controlled substance at d/c from ED?: No Time of Disposition: 05:00
[2023-06-22 01:03] LABS: Anisocytosis Slight; Basophils # (A) 0.1 k/uL (0-0.2); Basophils % (A) 1 %; Eosinophils # (A) 0.2 k/uL (0-0.7); Eosinophils % (A) 2 %; HCT 41.2 % (34.0-46.0); HGB 13.7 gm/dL (11.4-16.0); Lymphocytes # (A) 1.8 k/uL (1.0-4.8); Lymphocytes % (A) 16 %; MCH 29.9 pg (25.0-35.0); MCHC 33.3 g/dL (31.0-37.0); Mean Platelet Volume 7.5; Monocytes # (A) 0.7 k/uL (0-1.0); Monocytes % (A) 6 %; Neutrophils # (A) 8.1 k/uL (1.3-7.7); Neutrophils % (A) 74 %; Platelet Count 175 k/uL (150-450); RBC 4.58 m/uL (3.80-5.40); RDW 18.6 % (11.5-15.5)
[2023-06-22 01:22] LABS: ALT 19 U/L (4-34); African American GFR (CKD) 71 (>60 ml/min/1.73 sqM); Albumin 4.5 g/dL (3.5-5.0); Anion Gap 9 mmol/L; Blood Urea Nitrogen 22 mg/dL (7-17); Calcium 10.5 mg/dL (8.4-10.2); Carbon Dioxide 29 mmol/L (22-30); Chloride 101 mmol/L (98-107); Glucose 114 mg/dL (74-99); Non-African American GFR(CKD) 61 (>60 ml/min/1.73 sqM); Sodium 139 mmol/L (137-145); Total Bilirubin 1.3 mg/dL (0.2-1.3); Total Protein 7.3 g/dL (6.3-8.2)
[2023-06-22 01:29] LABS: AST 30 U/L (14-36); Magnesium 2.2 mg/dL (1.6-2.3); Phosphorus 4.2 mg/dL (2.5-4.5); Potassium 4.7 mmol/L (3.5-5.1)
[2023-06-22 01:30] LABS: Alkaline Phosphatase 147 U/L (38-126)
--- NOTE | 2023-06-22 01:30 | CT ---
EXAM: CT Head Without Intravenous Contrast CLINICAL HISTORY: ITS.REASON CT Reason: weakness TECHNIQUE: Axial computed tomography images of the head/brain without intravenous contrast. CTDI is 49.1 mGy and DLP is 1095.4 mGy-cm. This CT exam was performed using one or more of the following dose reduction techniques: automated exposure control, adjustment of the mA and/or kV according to patient size, and/or use of iterative reconstruction technique. COMPARISON: No relevant prior studies available. FINDINGS: Brain: No hemorrhage, herniation, or mass effect. Chronic microvascular ischemic changes. Prior bilateral periventricular white matter infarcts. Ventricles: No hydrocephalus. Age related cerebral volume loss. Bones/joints: Unremarkable. Soft tissues: Unremarkable. Sinuses: Unremarkable. Mastoid air cells: Clear. IMPRESSION: No acute hemorrhage, hydrocephalus, or mass effect.
[2023-06-22 01:31] LABS: NT-Pro-B-Type Natriuretic Pept 310 pg/mL
[2023-06-22 01:32] LABS: Prothrombin Time 10.7 sec (10.0-12.5)
[2023-06-22 04:48] LABS: Amorphous Sediment,Urine Few /hpf; Bacteria,Urine Many /hpf; Hyaline Casts,Urine 3 /lpf (0-2); Mucus,Urine Rare /hpf; RBC,Urine 2 /hpf (0-5); Squamous Epithelial Cell,Urine 1 /hpf (0-4); WBC,Urine 24 /hpf (0-5)
[2023-06-22] MEDS ORDERED: cefTRIAXone IN SWFI 1,000 MG/10 ML SYRINGE IVP STA (04:54)
[2023-06-22 04:58] LABS: Appearance,Urine Cloudy (Clear); Color,Urine Light Yellow; Glucose,Urine (UA) Negative (Negative); Ketones,Urine Trace (Negative); Protein,Urine Negative (Negative)
[2023-06-22 04:59] LABS: Bilirubin,Urine Negative (Negative); Blood,Urine Negative (Negative); Leukocyte Esterase,Urine Moderate (Negative); Nitrite,Urine Negative (Negative); Urobilinogen,Urine 0.2 mg/dL (<2.0)
[2023-06-22] MEDS ORDERED: ASPIRIN 325 MG TAB PO STA (04:59)
[2023-06-22] MEDS: SODIUM CHLORIDE 0.9% 1,000 ML IV SCH ×2 (05:35→17:19)
[2023-06-22] MEDS: FERROUS SULFATE 325 MG TAB PO SCH (09:34)
[2023-06-22] MEDS: carvediloL 3.125 MG TAB PO SCH ×2 (09:34→17:19)
[2023-06-22] MEDS: PANTOPRAZOLE 40 MG TABLET PO SCH ×2 (09:34→17:19)
--- NOTE | 2023-06-22 12:05 | P.CNNES ---
History of Present Illness Consult date: 06/22/23 Requesting physician: James Angeles Reason for Consult: tia History of Present Illness: This is an 82-year-old woman with history of probable TIA, AICD, coronary artery disease status post CABG, severe aortic stenosis status post however, left CEA in 2000, paroxysmal atrial fibrillation no longer on anticoagulation who presents to the emergency department or dizziness slurring the speech. She stated that her symptoms began last night and. She denies of any focal weakness. She feels dizzy but denies any vomiting or any new visual disturbance. Slurring speech resolved. She has history of paroxysmal atrial fibrillation but states is off eliquis or any anticoagulation since has GI bleed. She is on Plavix 75mg daily. She is on on ASA. Of note patient was seen last by me on 12/08/2022 for transient episode of left upper extremity weakness with numbness and felt was probable TIA. At that time she was on her home dose of 5 mg daily as well as was on Plavix 75 mg daily. I recommended if patient continues to have further neurological deficits consider stopping Plavix and start brilinta. Please refer to my notes for further details. Some of the work-up during this hospital visit consisted of: She'll serum glucose is 114. Calcium is 10.5. Sodium is 139. Analysis seems the patient the possible underlying an acute UTI. CT head is reported as no acute hemorrhage, hydrocephalus or mass effect. I personally reviewed the CT and I agree there is no acute or subacute ischemia. 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 Review of Systems The positive and negative as per HPI. Past Medical History Past Medical History: Atrial Fibrillation, Coronary Artery Disease (CAD), COPD, CVA/TIA, GERD/Reflux, GI Bleed, Hyperlipidemia, Hypertension, Myocardial Infarction (DE), Osteoarthritis (OA), Vascular Disorder Additional Past Medical History / Comment(s): UTI, 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, 02/2020 TIA, TIA 10/2022, carotid stenosis with L carotid endartectomy, pt states she has had irregular heart beat in past but cannot recall type, aortic stenosis/regurgitation, vertigo, balance issues-uses walker, back pain/disc problems, benign colon polyp,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 Last Myocardial Infarction Date:: 2000 History of Any Multi-Drug Resistant Organisms: None Reported Past Surgical History: AICD, Appendectomy, Bowel Resection, Cholecystectomy, Coronary Bypass/CABG, Heart Catheterization With Stent, Hernia Repair, Orthopedic Surgery Additional Past Surgical History / Comment(s): Arch studies, 2000 PCI with stents, 2002 CABG-3 vessel, 2002 AICD, AICD gen changes, DFTs, 2002 L carotid endartectomy, bowel resection for benign flat polyp, abdominal hernia repair, L hip fracture with surgery, L arm benign lesion removed, colonoscopies/polyps, ALEXIS Past Anesthesia/Blood Transfusion Reactions: No Reported Reaction, Motion Sickness Additional Past Anesthesia/Blood Transfusion Reaction / Comment(s): woke up during battery replacement in defibrillator Date of Last Stent Placement:: 2000 Type of Cardiac Device: AICD Device Placement Date:: 2002- Holganix Past Psychological History: Anxiety Smoking Status: Former smoker Past Alcohol Use History: None Reported Past Drug Use History: None Reported - Past Family History Sister(s) Family Medical History: Cancer Additional Family Medical History / Comment(s): Sister had breast/bladder cancers. Son(s) Family Medical History: Cancer Additional Family Medical History / Comment(s): pancreatic cancer Father Family Medical History: Cancer Additional Family Medical History / Comment(s): Bowel cancer. Mother Family Medical History: Cancer Additional Family Medical History / Comment(s): Mother had bowel cancer twice and 2nd time metastasized to her kidney. Medications and Allergies Home Medications Medication Instructions Recorded Confirmed Type Atorvastatin [Lipitor] 80 mg PO HS 01/03/16 06/22/23 History Clopidogrel [Plavix] 75 mg PO HS 06/22/23 06/22/23 History Ferrous Sulfate [Feosol] 325 mg PO DAILY 06/22/23 06/22/23 History Pantoprazole [Protonix] 40 mg PO BID 06/22/23 06/22/23 History carvediloL [Coreg] 3.125 mg PO BID 06/22/23 06/22/23 History Allergies Allergy/AdvReac Type Severity Reaction Status Date / Time lacosamide [From Vimpat] AdvReac AMS Verified 06/22/23 07:15 levetiracetam [From Keppra] AdvReac AMS Verified 06/22/23 07:15 Physical Examination - Vital Signs Vital Signs: Vital Signs Temp Pulse Resp BP Pulse Ox 06/22/23 11:05 98.7 F 70 17 139/77 94 L 06/22/23 10:02 78 16 141/69 95 06/22/23 09:35 77 16 154/71 95 06/22/23 08:18 78 17 137/72 95 06/22/23 07:44 99.6 F 78 18 140/86 93 L 06/22/23 06:00 84 18 148/90 100 06/22/23 04:00 84 18 140/113 98 06/22/23 02:30 78 18 168/88 99 06/22/23 00:46 63 18 171/98 95 06/22/23 00:25 97.8 F 76 18 205/111 95 Intake and Output 06/21/23 06/22/23 06/22/23 22:59 06:59 14:59 Output Total 1450 Balance -1450 Output: Urine 1450 Other: Weight 80.739 kg 80.739 kg GENERAL: The patient is lying in bed and is not in acute distress. NEUROLOGICAL: Higher mental function: The patient is awake, alert, oriented to self, place and time. Patient is following commands. No aphasia and no neglect. Cranial nerves: The pupils are round, equal and reactive to light and accommodation. Visual melendez are full to confrontation throughout. Extraocular movement is intact no nystagmus is noted. Facial sensation is normal to touch throughout. The facial strength is normal throughout. Hearing is moderately decreased bilaterally to hand rub. Tongue is midline and moved [id number] without any difficulty. No dysarthria is noted. Shoulder shrug is normal bilaterally. Motor: The strength is 5 over 5 throughout. Normal tone and bulk. Cerebellum: Normal finger to nose bilaterally. Sensation: Sensation is normal to touch throughout. Reflexes (right/left): 2+ throughout. Plantars are mute bilaterally. Results - Laboratory Findings CBC and BMP: 06/22/23 00:42 06/22/23 00:42 Abnormal Lab Findings: Abnormal Labs 06/22/23 06/22/23 06/22/23 00:28 00:42 00:42 WBC 11.0 H RDW 18.6 H Neutrophils # 8.1 H BUN Glucose POC Glucose (mg/dL) 115 H Calcium Alkaline Phosphatase Urine Appearance Cloudy H Urine Ketones Trace H Ur Leukocyte Esterase Moderate H Urine WBC 24 H Amorphous Sediment Few H Urine Bacteria Many H Hyaline Casts 3 H Urine Mucus Rare H 06/22/23 00:42 WBC RDW Neutrophils # BUN 22 H Glucose 114 H POC Glucose (mg/dL) Calcium 10.5 H Alkaline Phosphatase 147 H Urine Appearance Urine Ketones Ur Leukocyte Esterase Urine WBC Amorphous Sediment Urine Bacteria Hyaline Casts Urine Mucus Assessment and Plan Assessment: This is an 82-year-old woman with history of prior stroke in the past who presents because of dizziness and slurring the speech and she notices symptoms at night on 06/21/2023. Her slurring the speech has improved. He has history of paroxysmal atrial fibrillation and is not on anticoagulation since history of GI bleed per patient. Transient episode of dysarthria and dizziness probable TIA. especially with history of atrial fibrillation and not on anticoag History of stroke in past. Probable acute UTI History of paroxysmal atrial fibrillation not on anticoagulation due to GI bleed. AICD History of coronary artery disease status post CABG History of severe aortic stenosis status post TAVR History of left CEA in 2000 Underlying history of hypertension History of tobacco use Plan: Obtain MRIs since patient has AICD. We'll obtain a repeat CT of the head tomorrow in the morning I ordered carotid duplex. 2-D echo is ordered pending Patient is on home of Plavix 75 mg daily at bedtime and during this hospital stay patient was started on aspirin 325 mg daily by the ED team. Patient is on Lipitor 80 mg daily at bedtime. We'll defer that use of anticoagulation to her fitness and wellness manager and primary team. Routine neurochecks Cardiac monitoring PT OT and DIRECTOR VOLUNTEER SERVICES are consulted We'll defer the rest of the medical management to the primary team For DVT prophylaxis the patient is on Lovenox. Thank you for the consultation Time with Patient: Greater than 30
[2023-06-22] MEDS ORDERED: hydrALAZINE HCL 20 MG/ML 1 ML VIAL IVP PRN (12:20)
--- NOTE | 2023-06-22 12:21 | P.HPIM ---
History of Present Illness H&P Date: 06/22/23 Chief Complaint: Slurred speech * 82-year-old patient with past medical history significant for hypertension, hyperlipidemia, degenerative disc disease, coronary artery disease, COPD, chronic anemia, chronic congestive heart failure systolic dysfunction ejection fraction 40-45%, prosthetic aortic valve presents to the emergency department with complains of strokelike symptoms. Patient states she was having slurred speech and was noted to have elevated blood pressure at the time of presentation. Patient was brought to EMS however at the time of initial presentation she did not have any neurological deficit. * Patient noted to have systolic blood pressure of 20 5 x 111 with a mean heart rate of 142 * CBC obtained in ER showed WBC of 11, hemoglobin 13.7, platelet 175 neutrophil count of 8.1 * INR obtained upon admission is 1, serum chemistry obtained sodium 139 potass ium 4.7 chloride 102 BU and 22 creatinine 0.8 * Urinalysis is obtained in ER showed cloudy urine, urine ketones are positive leukocyte esterase is noted WBC 24 many bacteria noted * Patient was given dose of Rocephin, IV hydralazine and 2 L fluid bolus * In to be admitted to medical floor with consultation from neurology REVIEW OF SYSTEMS: Slurred speech, fatigue, weakness CONSTITUTIONAL: No fever, no malaise, no fatigue. HEENT: No recent visual problems or hearing problems. Denied any sore throat. CARDIOVASCULAR: No chest pain, orthopnea, PND, no palpitations, no syncope. PULMONARY: No shortness of breath, no cough, no hemoptysis. GASTROINTESTINAL: No diarrhea, no nausea, no vomiting, no abdominal pain. NEUROLOGICAL: Slurred speech, fatigue, weakness HEMATOLOGICAL: Denies any bleeding or petechiae. GENITOURINARY: Denies any burning micturition, frequency, or urgency. MUSCULOSKELETAL/RHEUMATOLOGICAL: Denies any joint pain, swelling, or any muscle pain. ENDOCRINE: Denies any polyuria or polydipsia. PHYSICAL EXAMINATION: GENERAL: The patient is alert and oriented x3, ill appearance HEENT: Pupils are round and equally reacting to light. EOMI. CARDIOVASCULAR: S1 and S2 present. No murmurs, rubs, or gallops. PULMONARY: Chest is clear to auscultation, no wheezing or crackles. ABDOMEN: Soft, nontender, nondistended, normoactive bowel sounds. No palpable organomegaly. MUSCULOSKELETAL: No joint swelling or deformity. EXTREMITIES: No cyanosis, clubbing, or pedal edema. NEUROLOGICAL: Gross neurological examination did not reveal any focal deficits. Motor strength is 5 x 5 bilateral upper and lower extremity SKIN: No rashes. Past Medical History Past Medical History: Atrial Fibrillation, Coronary Artery Disease (CAD), COPD, CVA/TIA, GERD/Reflux, GI Bleed, Hyperlipidemia, Hypertension, Myocardial Infarction (CA), Osteoarthritis (OA), Vascular Disorder Additional Past Medical History / Comment(s): UTI, 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, 02/2020 TIA, TIA 10/2022, carotid stenosis with L carotid endartectomy, pt states she has had irregular heart beat in past but cannot recall type, aortic stenosis/regurgitation, vertigo, balance issues-uses walker, back pain/disc problems, benign colon polyp,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 Last Myocardial Infarction Date:: 2000 History of Any Multi-Drug Resistant Organisms: None Reported Past Surgical History: AICD, Appendectomy, Bowel Resection, Cholecystectomy, Coronary Bypass/CABG, Heart Catheterization With Stent, Hernia Repair, Orthopedic Surgery Additional Past Surgical History / Comment(s): Arch studies, 2000 PCI with stents, 2002 CABG-3 vessel, 2002 AICD, AICD gen changes, DFTs, 2002 L carotid endartectomy, bowel resection for benign flat polyp, abdominal hernia repair, L hip fracture with surgery, L arm benign lesion removed, colonoscopies/polyps, ALEXIS Past Anesthesia/Blood Transfusion Reactions: No Reported Reaction, Motion Sickness Additional Past Anesthesia/Blood Transfusion Reaction / Comment(s): woke up during battery replacement in defibrillator Date of Last Stent Placement:: 2000 Type of Cardiac Device: AICD Device Placement Date:: 2002- [employer] Past Psychological History: Anxiety Smoking Status: Former smoker Past Alcohol Use History: None Reported Past Drug Use History: None Reported - Past Family History Sister(s) Family Medical History: Cancer Additional Family Medical History / Comment(s): Sister had breast/bladder cancers. Son(s) Family Medical History: Cancer Additional Family Medical History / Comment(s): pancreatic cancer Father Family Medical History: Cancer Additional Family Medical History / Comment(s): Bowel cancer. Mother Family Medical History: Cancer Additional Family Medical History / Comment(s): Mother had bowel cancer twice and 2nd time metastasized to her kidney. Medications and Allergies Home Medications Medication Instructions Recorded Confirmed Type Atorvastatin [Lipitor] 80 mg PO HS 01/03/16 06/22/23 History Clopidogrel [Plavix] 75 mg PO HS 06/22/23 06/22/23 History Ferrous Sulfate [Feosol] 325 mg PO DAILY 06/22/23 06/22/23 History Pantoprazole [Protonix] 40 mg PO BID 06/22/23 06/22/23 History carvediloL [Coreg] 3.125 mg PO BID 06/22/23 06/22/23 History Allergies Allergy/AdvReac Type Severity Reaction Status Date / Time lacosamide [From Vimpat] AdvReac AMS Verified 06/22/23 07:15 levetiracetam [From Keppra] AdvReac AMS Verified 06/22/23 07:15 Physical Exam Vitals: Vital Signs Temp Pulse Resp BP Pulse Ox 06/22/23 08:18 78 17 137/72 95 06/22/23 07:44 99.6 F 78 18 140/86 93 L 06/22/23 06:00 84 18 148/90 100 06/22/23 04:00 84 18 140/113 98 06/22/23 02:30 78 18 168/88 99 06/22/23 00:46 63 18 171/98 95 06/22/23 00:25 97.8 F 76 18 205/111 95 Intake and Output 06/21/23 06/22/23 06/22/23 22:59 06:59 14:59 Output Total 650 Balance -650 Output: Urine 650 Other: Weight 80.739 kg Results CBC & Chem 7: 06/22/23 00:42 06/22/23 00:42 Labs: Abnormal Lab Results - Last 24 Hours (Table) 06/22/23 06/22/23 06/22/23 Range/Units 00:28 00:42 00:42 WBC 11.0 H (3.8-10.6) k/uL RDW 18.6 H (11.5-15.5) % Neutrophils # 8.1 H (1.3-7.7) k/uL BUN (7-17) mg/dL Glucose (74-99) mg/dL POC Glucose (mg/dL) 115 H (70-110) mg/dL Calcium (8.4-10.2) mg/dL Alkaline Phosphatase (38-126) U/L Urine Appearance Cloudy H (Clear) Urine Ketones Trace H (Negative) Ur Leukocyte Esterase Moderate H (Negative) Urine WBC 24 H (0-5) /hpf Amorphous Sediment Few H (None) /hpf Urine Bacteria Many H (None) /hpf Hyaline Casts 3 H (0-2) /lpf Urine Mucus Rare H (None) /hpf 06/22/23 Range/Units 00:42 WBC (3.8-10.6) k/uL RDW (11.5-15.5) % Neutrophils # (1.3-7.7) k/uL BUN 22 H (7-17) mg/dL Glucose 114 H (74-99) mg/dL POC Glucose (mg/dL) (70-110) mg/dL Calcium 10.5 H (8.4-10.2) mg/dL Alkaline Phosphatase 147 H (38-126) U/L Urine Appearance (Clear) Urine Ketones (Negative) Ur Leukocyte Esterase (Negative) Urine WBC (0-5) /hpf Amorphous Sediment (None) /hpf Urine Bacteria (None) /hpf Hyaline Casts (0-2) /lpf Urine Mucus (None) /hpf Assessment and Plan Assessment: Assessment and plan Hypertensive urgency Slurred speech rule out CVA Urinary tract infection History of coronary artery disease with CABG History of aortic stenosis status post TAVR Ischemic cardiomyopathy with AICD in place History of gastrointestinal bleed * In regards to hypertensive urgency, and slurred speech patient started on home medications, neurology consulted, continue neuro checks, CT head negative, when necessary IV hydralazine ordered * In regards to urinary tract infection continue patient on Rocephin follow-up on urine culture * In regards to slurred speech, neurology consulted continue aspirin and Lipitor * In regards to history of anemia continue ferrous sulfate * In regards to history of cardiomyopathy echocardiogram ordered * CODE STATUS is full code Time with Patient: Greater than 30
[2023-06-22 16:54] LABS: Chol/HDL Ratio 1.82 Ratio; LDL Cholesterol,Calculated 30.7 mg/dL (0.0-131.0)
--- NOTE | 2023-06-22 19:30 | US ---
EXAMINATION TYPE: US carotid duplex BILAT DATE OF EXAM: 06/22/2023 COMPARISON: US 12/09/2022 CLINICAL INDICATION: Female, 82 years old with history of stroke; Stroke. Limited history from patien t, patient thinks she had surgery on her left carotid artery to "clean it out". TECHNIQUE: Carotid duplex ultrasound examination. Indirect Doppler criteria was utilized. FINDINGS: EXAM MEASUREMENTS: RIGHT: Peak Systolic Velocity (PSV) cm/sec ----- Right CCA: 74.2 ----- Right ICA: 95.9 ----- Right ECA: 69.5 ICA/CCA ratio: 1.29 RIGHT: End Diastole cm/sec ----- Right CCA: 11.9 ----- Right ICA: 18.0 ----- Right ECA: 1.8 LEFT: Peak Systolic Velocity (PSV) cm/sec ----- Left CCA: 63.5 ----- Left ICA: 115 ----- Left ECA: 102 ICA/CCA ratio: 1.81 LEFT: End Diastole cm/sec ----- Left CCA: 15.7 ----- Left ICA: 27.5 ----- Left ECA: 12.7 VERTEBRALS (direction of flow): Right Vertebral: Antegrade Left Vertebral: Antegrade Rhythm: Normal ASSOCIATE PROFESSOR OF BIOSTATISTICS NOTES: *Plaque seen within bilateral bulbs and bilateral ICA. *Bidirectional flow seen within bilateral prox ICAs and mid left ICA. *Left ICA appears tortuous. IMPRESSION: 1. Tortuous left ICA likely causing turbulence and giving the appearance of bidirectional flow. Recom mend short interval follow-up to reassess at 3-4 weeks. 2. No hemodynamically significant internal carotid artery stenosis on either side. Criteria for Assigning % of Stenosis / Diameter reduction (Estimation based on the indirect measurements of the internal carotid artery velocities (ICA PSV). 1. Normal (no stenosis)=ICA PSV < 125 cm/s: ratio < 2.0: ICA EDV<40 cm/s. 2. Less than 50% stenosis=ICA PSV < 125 cm/s: ratio < 2.0: ICA EDV<40 cm/s. 3. 50 to 69% stenosis=ICA PSV of 125 to 230 cm/s: ration 2.0 ? 4.0: ICA EDV 40-100 cm/s. 4. Greater than 70% stenosis to near occlusion= ICA PSV > 230 cm/s: ratio > 4.0: ICA EDV > 100 cm/s. 5. Near occlusion= ICA PSV velocities may be low or undetectable: variable ratio and ICA EDV. 6. Total occlusion=unable to detect flow.
[2023-06-22] MEDS: ATORVASTATIN 80 MG TAB PO SCH (21:09)
[2023-06-22] MEDS: CLOPIDOGREL 75 MG TAB PO SCH (21:09)
[2023-06-23] MEDS: SODIUM CHLORIDE 0.9% 1,000 ML IV SCH (06:29)
[2023-06-23] MEDS: PANTOPRAZOLE 40 MG TABLET PO SCH ×2 (06:45→16:47)
[2023-06-23] MEDS: carvediloL 3.125 MG TAB PO SCH ×2 (06:45→16:47)
[2023-06-23] MEDS: ASPIRIN 325 MG TAB PO SCH (08:22)
[2023-06-23] MEDS: ENOXAPARIN 40 MG/0.4 ML SYRINGE SQ SCH (08:22)
[2023-06-23] MEDS: FERROUS SULFATE 325 MG TAB PO SCH (08:22)
--- NOTE | 2023-06-23 10:55 | CA ---
Transthoracic Echo Report Name: Mona Purvis Age: 82 Gender: F : 1940 Exam Date: 06/22/2023 10:52 Exam Location: [facility] Ht (in): 64 Wt (lb): 178 Ordering Physician: Dieter Kamara MD Attending/Referring Phys: Print Shop Manager Juliet Nur RDCS Procedure CPT: Indications: CVA workup Cardiac Hx: AICD, CABG, Bioprosthetic AOV Technical Quality: Fair Contrast 1: Total Dose (mL): Contrast 2: Total Dose (mL): MEASUREMENTS (Male / Female) Normal Values 2D ECHO LV Diastolic Diameter PLAX 5.0 cm 4.2 - 5.9 / 3.9 - 5.3 cm LV Systolic Diameter PLAX 4.6 cm IVS Diastolic Thickness 1.0 cm 0.6 - 1.0 / 0.6 - 0.9 cm LVPW Diastolic Thickness 0.9 cm 0.6 - 1.0 / 0.6 - 0.9 cm LV Relative Wall Thickness 0.4 RV Internal Dim ED PLAX 3.3 cm LA Systolic Diameter LX 4.1 cm 3.0 - 4.0 / 2.7 - 3.8 cm LV Diastolic Volume MOD 4C 76.9 cm??? LV Systolic Volume MOD 4C 42.8 cm??? LV Ejection Fraction MOD 4C 44.4 % LV Cardiac Index MOD 4C 1234.1 cm???/min???m??? LV Diastolic Length 4C 7.6 cm LV Systolic Length 4C 6.9 cm LV Diastolic Volume MOD 2C 145.2 cm??? LV Systolic Volume MOD 2C 82.5 cm??? LV Ejection Fraction MOD 2C 43.2 % LV Cardiac Index MOD 2C 2265.8 cm???/min???m??? LV Diastolic Length 2C 7.6 cm LV Systolic Length 2C 6.9 cm LA Volume 37.1 cm??? 18 - 58 / 22 - 52 cm??? LA Volume Index 19.1 cm???/m??? 16 - 28 cm???/m??? M-MODE Aortic Root Diameter MM 3.4 cm MV E Point Septal Separation 0.8 cm AV Cusp Separation MM 1.8 cm DOPPLER AV Peak Velocity 193.9 cm/s AV Peak Gradient 15.0 mmHg AV Mean Velocity 150.0 cm/s AV Mean Gradient 9.6 mmHg AV Velocity Time Integral 45.7 cm MV Area PHT 2.8 cm??? Mitral E Point Velocity 79.3 cm/s Mitral A Point Velocity 107.4 cm/s Mitral E to A Ratio 0.7 MV Deceleration Time 270.7 ms MV E' Velocity 3.3 cm/s Mitral E to MV E' Ratio 23.9 TR Peak Velocity 189.2 cm/s TR Peak Gradient 14.3 mmHg FINDINGS Left Ventricle Left ventricular ejection fraction is estimated at 45-50 %. Left ventricular cavity size normal. Mildly increased septal wall thickness. Apical septum hypokinesis Right Ventricle Mild right ventricular dilatation. Unable to estimate the right ventricular systolic pressure. Right Atrium Normal right atrial size. Left Atrium Mildly increased left atrial diameter. Mitral Valve Structurally normal mitral valve. Mitral annular calcification. Trace mitral regurgitation. Aortic Valve Bioprostetic AOV with mean gradient of 10 mm/hg and max gradient of 15 mmhg Tricuspid Valve Structurally normal tricuspid valve. Trace tricuspid regurgitation. Pulmonic Valve Structurally normal pulmonic valve. No pulmonic regurgitation. Pericardium No pericardial effusion. Aorta CONCLUSIONS Impaired LV function with an EF between 45-50% and septal/apical hypokinesia Bioprosthetic aortic valve with a mean gradient of 10 mmHg Overall technically difficult study Previewed by: Dr. Mark Nelson MD (Electronically Signed) Final Date: 23 June 2023 10:54
[2023-06-23 12:06] LABS: Anisocytosis Slight; HCT 38.3 % (34.0-46.0); HGB 12.2 gm/dL (11.4-16.0); MCHC 31.8 g/dL (31.0-37.0); MCV 91.2 fL (80.0-100.0); Mean Platelet Volume 7.8; Platelet Count 157 k/uL (150-450); RDW 18.3 % (11.5-15.5); WBC 8.8 k/uL (3.8-10.6)
--- NOTE | 2023-06-23 12:21 | P.PN ---
Subjective Progress Note Date: 06/23/23 * 82-year-old patient with past medical history significant for hypertension, hyperlipidemia, degenerative disc disease, coronary artery disease, COPD, chronic anemia, chronic congestive heart failure systolic dysfunction ejection fraction 40-45%, prosthetic aortic valve presents to the emergency department with complains of strokelike symptoms. Patient states she was having slurred speech and was noted to have elevated blood pressure at the time of presentation. Patient was brought to EMS however at the time of initial presentation she did not have any neurological deficit. * Patient noted to have systolic blood pressure of 20 5 x 111 with a mean heart rate of 142 * CBC obtained in ER showed WBC of 11, hemoglobin 13.7, platelet 175 neutrophil count of 8.1 * INR obtained upon admission is 1, serum chemistry obtained sodium 139 potassium 4.7 chloride 102 BU and 22 creatinine 0.8 * Urinalysis is obtained in ER showed cloudy urine, urine ketones are positive leukocyte esterase is noted WBC 24 many bacteria noted * Patient was given dose of Rocephin, IV hydralazine and 2 L fluid bolus * In to be admitted to medical floor with consultation from neurology * 06/23/2023 : Patient seen and evaluated bedside, patient is alert and oriented to person place and situation. Patient states her slurred speech has resolved. She continues to feel weak, suprapubic discomfort has improved as well. CBC reviewed showed normal WBC count, serum chemistry pending, follow- up on urine cultures continue patient on IV antibiotic receiving Rocephin. Appreciate input from neurology, carotid ultrasound completed left ICA tortious flow noted REVIEW OF SYSTEMS: Slurred speech, fatigue, weakness proved CONSTITUTIONAL: No fever, no malaise, no fatigue. HEENT: No recent visual problems or hearing problems. Denied any sore throat. CARDIOVASCULAR: No chest pain, orthopnea, PND, no palpitations, no syncope. PULMONARY: No shortness of breath, no cough, no hemoptysis. GASTROINTESTINAL: No diarrhea, no nausea, no vomiting, no abdominal pain. NEUROLOGICAL: Slurred speech, fatigue, weakness HEMATOLOGICAL: Denies any bleeding or petechiae. GENITOURINARY: Denies any burning micturition, frequency, or urgency. MUSCULOSKELETAL/RHEUMATOLOGICAL: Denies any joint pain, swelling, or any muscle pain. ENDOCRINE: Denies any polyuria or polydipsia. PHYSICAL EXAMINATION: GENERAL: The patient is alert and oriented x3, ill appearance HEENT: Pupils are round and equally reacting to light. EOMI. CARDIOVASCULAR: S1 and S2 present. No murmurs, rubs, or gallops. PULMONARY: Chest is clear to auscultation, no wheezing or crackles. ABDOMEN: Soft, nontender, nondistended, normoactive bowel sounds. No palpable organomegaly. MUSCULOSKELETAL: No joint swelling or deformity. EXTREMITIES: No cyanosis, clubbing, or pedal edema. NEUROLOGICAL: Gross neurological examination did not reveal any focal deficits. Motor strength is 5 x 5 bilateral upper and lower extremity SKIN: No rashes. Objective - Vital Signs Vital signs: Vital Signs Temp 97.5 F L 06/23/23 08:20 Pulse 68 06/23/23 08:20 Resp 18 06/23/23 08:20 BP 103/58 06/23/23 08:20 Pulse Ox 93 L 06/23/23 08:44 FiO2 Intake & Output 06/22/23 06/23/23 06/23/23 18:59 06:59 18:59 Intake Total 120 Output Total 1650 250 Balance -1650 -130 Weight 80.739 kg Intake: Oral 120 Output: Urine 1650 250 Other: Voiding Method External Catheter External Catheter External Catheter # Voids 1 - Labs CBC & Chem 7: 06/23/23 11:36 06/22/23 00:42 Labs: Abnormal Lab Results - Last 24 Hours (Table) 06/22/23 06/23/23 Range/Units 00:42 11:36 RDW 18.3 H (11.5-15.5) % HDL Cholesterol 64.70 H (40.00-60.00) mg/dL Assessment and Plan Assessment: Assessment and plan Hypertensive urgency Slurred speech rule out CVA Urinary tract infection History of coronary artery disease with CABG History of aortic stenosis status post TAVR Ischemic cardiomyopathy with AICD in place History of gastrointestinal bleed * In regards to hypertensive urgency, and slurred speech patient started on home medications, neurology consulted, continue neuro checks, CT head negative, when necessary IV hydralazine ordered, carotid ultrasound shows left ICA tortious flow * In regards to urinary tract infection continue patient on Rocephin day 2 follow-up on urine culture * In regards to slurred speech, neurology consulted continue aspirin and Lipitor * In regards to history of anemia continue ferrous sulfate * In regards to history of cardiomyopathy echocardiogram ordered shows 45-50% EF, apical septum hypokinesis * CODE STATUS is full code Time with Patient: Greater than 30
[2023-06-23 12:42] LABS: African American GFR (CKD) 77 (>60 ml/min/1.73 sqM); Anion Gap 11 mmol/L; Blood Urea Nitrogen 16 mg/dL (7-17); C Reactive Protein <0.5 mg/dL (<1.0); Calcium 9.8 mg/dL (8.4-10.2); Carbon Dioxide 24 mmol/L (22-30); Chloride 104 mmol/L (98-107); Glucose 69 mg/dL (74-99); Non-African American GFR(CKD) 67 (>60 ml/min/1.73 sqM); Potassium 3.9 mmol/L (3.5-5.1); Sodium 139 mmol/L (137-145)
--- NOTE | 2023-06-23 14:11 | CT ---
EXAMINATION TYPE: CT brain wo con DATE OF EXAM: 06/23/2023 HISTORY: Dysarthria, Stroke CT DLP: 1095.4 mGycm. Automated Exposure Control for Dose Reduction was Utilized. TECHNIQUE: CT scan of the head is performed without contrast. COMPARISON: CT brain 1 day earlier. FINDINGS: There is no acute intracranial hemorrhage or midline shift identified. There is mild diff use ventricular and sulcal prominence redemonstrated. There is moderate to severe areas of low-atten uation in the deep and periventricular white matter redemonstrated. Old infarct right thomas radiata axial image 29 again seen. The globes are intact and the visualized sinuses are clear. IMPRESSION: No acute intracranial hemorrhage or midline shift. There is mild diffuse age-related ce rebral atrophy and moderate to severe chronic small vessel ischemic change redemonstrated. No signifi cant change from most recent prior CT.
--- NOTE | 2023-06-23 15:08 | P.PN ---
Subjective Progress Note Date: 06/23/23 Following up with the patient and she feels she is doing better. No new neurological deficits. The ulcers speech is much better no further dysarthria. Continues to have some dizziness. Objective - Vital Signs Vital signs: Vital Signs Temp 97.6 F 06/23/23 12:20 Pulse 69 06/23/23 12:20 Resp 20 06/23/23 12:20 BP 123/73 06/23/23 12:20 Pulse Ox 95 06/23/23 12:20 FiO2 Intake & Output 06/22/23 06/23/23 06/23/23 18:59 06:59 18:59 Intake Total 360 Output Total 1650 250 Balance -1650 110 Weight 80.739 kg Intake: Oral 360 Output: Urine 1650 250 Other: Voiding Method External Catheter External Catheter External Catheter # Voids 1 - Exam GENERAL: The patient is sitting up in a chair and is not in acute distress. NEUROLOGICAL: Higher mental function: The patient is awake, alert, oriented to self, place and time. Patient is following commands. No aphasia and no neglect. Cranial nerves: The pupils are round, equal and reactive to light and accommodation. Visual melendez are full to confrontation throughout. Extraocular movement is intact no nystagmus is noted. Facial sensation is normal to touch throughout. The facial strength is normal throughout. Hearing is moderately decreased bilaterally to hand rub. Tongue is midline and moved [id number] without any difficulty. No dysarthria is noted. Shoulder shrug is normal bilaterally. Motor: The strength is 5 over 5 throughout. Normal tone and bulk. Cerebellum: Normal finger to nose bilaterally. Sensation: Sensation is normal to touch throughout. Reflexes (right/left): 2+ throughout. Plantars are mute bilaterally. Some of the work-up during this hospital visit consisted of: Calcium is 10.5. Sodium is 139. Lipid panel: Triglyceride is 113, cholesterol is 118, LDLs 30 and HDL 64. Urine Analysis seems the patient the possible underlying an acute UTI. CT head is reported as no acute hemorrhage, hydrocephalus or mass effect. I personally reviewed the CT and I agree there is no acute or subacute ischemia. 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 Carotid duplex is reported as tortuous left ICA likely causing turbulence and giving appearance of bidirectional flow. Recommend short interval follow-up to reassess at 3-4 weeks. No hemodynamic significant internal carotid artery on either side. - Labs CBC & Chem 7: 06/23/23 11:36 12 11:36 Labs: Abnormal Lab Results - Last 24 Hours (Table) 06/22/23 06/23/23 06/23/23 Range/Units 00:42 11:36 11:36 RDW 18.3 H (11.5-15.5) % Glucose 69 L (74-99) mg/dL HDL Cholesterol 64.70 H (40.00-60.00) mg/dL Assessment and Plan Assessment: This is an 82-year-old woman with history of prior stroke in the past who presents because of dizziness and slurring the speech and she notices symptoms at night on 06/21/2023. Her slurring the speech has improved. He has history of paroxysmal atrial fibrillation and is not on anticoagulation since history of GI bleed per patient. Transient episode of dysarthria and dizziness probable TIA. especially with history of atrial fibrillation and not on anticoag History of stroke in past. Probable acute UTI History of paroxysmal atrial fibrillation not on anticoagulation due to GI bleed. AICD History of coronary artery disease status post CABG History of severe aortic stenosis status post TAVR History of left CEA in 2000 Underlying history of hypertension History of tobacco use Plan: Cannot obtain MRIs since patient has AICD. We'll obtain a repeat CT of the head today. Regarding the tortuous left ICA likely causing turbelence and giving appearance of bidrectional flow and to reassess in 3-4 weeks on carotid duplex. The patient stated that she does not have any resources to follow up with somebody and get reevaluated. Therefore I'll I'll obtain a CT angiography of the neck. Patient is on home of Plavix 75 mg daily at bedtime and during this hospital stay patient was started on aspirin 325 mg daily by the ED team. Patient is on Lipitor 80 mg daily at bedtime. 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 Routine neurochecks Cardiac monitoring PT OT and [employer] are consulted We'll defer the rest of the medical management to the primary team For DVT prophylaxis the patient is on Lovenox. Time with Patient: Less than 30
--- NOTE | 2023-06-23 19:18 | CT ---
EXAMINATION TYPE: CT angio neck DATE OF EXAM: 06/23/2023 HISTORY: stroke. turturous left ica on carotid duplex COMPARISON: CT DLP: 437.5 mGycm. Automated Exposure Control for Dose Reduction was Utilized. TECHNIQUE: CTA scan of the neck is performed with IV Contrast, patient injected with 65 mL of Isovue 370, axial images are obtained, coronal and sagittal reformatted images are reviewed. Three-D recons tructed images are created on an independent workstation and reviewed. Source images are reviewed. FINDINGS: Carotid/Vascular Structures: There is a 3 vessel arch. There is tortuosity of the left common carotid artery. Additional tortuosity of the proximal left internal carotid artery is present. Small kink in the horizontal portion may be contributing to stenosis. Series 401, image 108 Common carotid arteries bifurcate into internal and external carotid arteries without significant iva w limiting stenosis. Vertebral arteries are codominant. Internal carotid arteries and vertebral arteries are patent to the skull base. Other: Upper lateral lung field windows as visualized appear normal. IMPRESSION: 1. No flow-limiting stenosis bilateral carotid bifurcations. There is however tortuous turn with some kinking of the internal carotid artery beyond the bifurcation could be contributing to some stenosis . 2. Limited visualization of the [place] appears normal. NASCET criteria was used in interpretation of this exam?
[2023-06-23] MEDS: ATORVASTATIN 80 MG TAB PO SCH (21:10)
[2023-06-23] MEDS: CLOPIDOGREL 75 MG TAB PO SCH (21:10)
[2023-06-24] MEDS: SODIUM CHLORIDE 0.9% 1,000 ML IV SCH ×2 (04:49→08:22)
[2023-06-24] MEDS: PANTOPRAZOLE 40 MG TABLET PO SCH (06:26)
[2023-06-24] MEDS: carvediloL 3.125 MG TAB PO SCH (06:26)
[2023-06-24] MEDS: ASPIRIN 325 MG TAB PO SCH (08:21)
[2023-06-24] MEDS: ENOXAPARIN 40 MG/0.4 ML SYRINGE SQ SCH (08:21)
[2023-06-24] MEDS: FERROUS SULFATE 325 MG TAB PO SCH (08:21)
[2023-06-24 08:37] VITALS: RESP 16
[2023-06-24 11:22] LABS: Anisocytosis Slight; HGB 13.3 gm/dL (11.4-16.0); MCH 29.9 pg (25.0-35.0); MCHC 32.3 g/dL (31.0-37.0); MCV 92.6 fL (80.0-100.0); Mean Platelet Volume 7.6; Platelet Count 154 k/uL (150-450); RBC 4.43 m/uL (3.80-5.40); RDW 18.2 % (11.5-15.5); WBC 9.9 k/uL (3.8-10.6)
[2023-06-24 11:27] VITALS: BP 132/80; PULSE 69; TEMP 98.1
[2023-06-24 11:51] LABS: African American GFR (CKD) 87 (>60 ml/min/1.73 sqM); Anion Gap 11 mmol/L; Blood Urea Nitrogen 14 mg/dL (7-17); Calcium 10.1 mg/dL (8.4-10.2); Carbon Dioxide 23 mmol/L (22-30); Chloride 104 mmol/L (98-107); Glucose 98 mg/dL (74-99); Non-African American GFR(CKD) 76 (>60 ml/min/1.73 sqM); Sodium 138 mmol/L (137-145)
[2023-06-24] MEDS ORDERED: LIDOCAINE 4% PATCH TOPICAL SCH (12:00)
--- NOTE | 2023-06-24 13:28 | P.DS ---
Providers Date of admission: 06/24/23 10:27 Expected date of discharge: 06/24/23 Attending physician: Costa Rivas Consults: 06/22/23 05:00 Consult Physician Routine Consulting Provider: Adams Yang Consult Reason/Comments: tia Do you want consulting provider notified?: Yes Primary care physician: [facility] Hospital Course: * 82-year-old patient with past medical history significant for hypertension, hyperlipidemia, degenerative disc disease, coronary artery disease, COPD, chronic anemia, chronic congestive heart failure systolic dysfunction ejection fraction 40-45%, prosthetic aortic valve presents to the emergency department with complains of strokelike symptoms. Patient states she was having slurred speech and was noted to have elevated blood pressure at the time of presentation. Patient was brought to EMS however at the time of initial presentation she did not have any neurological deficit. * Patient noted to have systolic blood pressure of 20 5 x 111 with a mean heart rate of 142 * CBC obtained in ER showed WBC of 11, hemoglobin 13.7, platelet 175 neutrophil count of 8.1 * INR obtained upon admission is 1, serum chemistry obtained sodium 139 potassium 4.7 chloride 102 BU and 22 creatinine 0.8 * Urinalysis is obtained in ER showed cloudy urine, urine ketones are positive leukocyte esterase is noted WBC 24 many bacteria noted * Patient was given dose of Rocephin, IV hydralazine and 2 L fluid bolus * In to be admitted to medical floor with consultation from neurology * 06/23/2023 : Patient seen and evaluated bedside, patient is alert and oriented to person place and situation. Patient states her slurred speech has resolved. She continues to feel weak, suprapubic discomfort has improved as well. CBC reviewed showed normal WBC count, serum chemistry pending, follow- up on urine cultures continue patient on IV antibiotic receiving Rocephin. Appreciate input from neurology, carotid ultrasound completed left ICA tortious flow noted * 06/24/2023: Patient seen and evaluated bedside, patient had CT angiography completed no flow-limiting stenosis bilateral carotid bifurcation noted, tortuous done with some kinking of internal carotid artery noted. Reviewed by neurology, continue medical management. Repeat CT brain was negative age- related changes noted, chronic ischemic changes noted continue patient on aspirin and Plavix REVIEW OF SYSTEMS: Slurred speech, fatigue, weakness resolved CONSTITUTIONAL: No fever, no malaise, no fatigue. HEENT: No recent visual problems or hearing problems. Denied any sore throat. CARDIOVASCULAR: No chest pain, orthopnea, PND, no palpitations, no syncope. PULMONARY: No shortness of breath, no cough, no hemoptysis. GASTROINTESTINAL: No diarrhea, no nausea, no vomiting, no abdominal pain. NEUROLOGICAL: Slurred speech, fatigue, weakness HEMATOLOGICAL: Denies any bleeding or petechiae. GENITOURINARY: Denies any burning micturition, frequency, or urgency. MUSCULOSKELETAL/RHEUMATOLOGICAL: Denies any joint pain, swelling, or any muscle pain. ENDOCRINE: Denies any polyuria or polydipsia. PHYSICAL EXAMINATION: GENERAL: The patient is alert and oriented x3, HEENT: Pupils are round and equally reacting to light. EOMI. CARDIOVASCULAR: S1 and S2 present. No murmurs, rubs, or gallops. PULMONARY: Chest is clear to auscultation, no wheezing or crackles. ABDOMEN: Soft, nontender, nondistended, normoactive bowel sounds. No palpable organomegaly. MUSCULOSKELETAL: No joint swelling or deformity. EXTREMITIES: No cyanosis, clubbing, or pedal edema. NEUROLOGICAL: Gross neurological examination did not reveal any focal deficits. Motor strength is 5 x 5 bilateral upper and lower extremity Assessment: Assessment and plan Hypertensive urgency Slurred speech secondary to TIA Urinary tract infection History of coronary artery disease with CABG History of aortic stenosis status post TAVR Ischemic cardiomyopathy with AICD in place History of gastrointestinal bleed Chronic neck pain degenerative disease of cervical spine * In regards to hypertensive urgency, and slurred speech CT head negative, carotid ultrasound shows left ICA tortious flow, repeat CT head after [address] angina completed continue patient on aspirin, Lipitor, Plavix * In regards to urinary tract infection , received Rocephin inpatient transition to oral Ceftin * In regards to slurred speech, neurology consulted continue aspirin and Lipitor * In regards to history of anemia continue ferrous sulfate * In regards to history of cardiomyopathy echocardiogram ordered shows 45-50% EF, apical septum hypokinesis * Continue with outpatient PCP follow-up, information for orthospine provided, lidocaine patch provided for neck pain Patient Condition at Discharge: Fair Plan - Discharge Summary Discharge Rx Participant: Yes New Discharge Prescriptions: New cefUROXime axetiL [Cefuroxime] 500 mg PO BID 3 Days #6 tab Aspirin 81 mg PO DAILY 30 Days #30 tab L.idocaine 4% Patch 1 patch TOPICAL DAILY 7 Days #7 patch Continue Atorvastatin [Lipitor] 80 mg PO HS Pantoprazole [Protonix] 40 mg PO BID Clopidogrel [Plavix] 75 mg PO HS carvediloL [Coreg] 3.125 mg PO BID Ferrous Sulfate [Iron (65 MG Elemental)] 325 mg PO DAILY Discharge Medication List Atorvastatin [Lipitor] 80 mg PO HS 01/03/16 [History] Clopidogrel [Plavix] 75 mg PO HS 06/22/23 [History] Ferrous Sulfate [Iron (65 MG Elemental)] 325 mg PO DAILY 06/22/23 [History] Pantoprazole [Protonix] 40 mg PO BID 06/22/23 [History] carvediloL [Coreg] 3.125 mg PO BID 06/22/23 [History] Aspirin 81 mg PO DAILY 30 Days #30 tab 06/24/23 [Rx] L.idocaine 4% Patch 1 patch TOPICAL DAILY 7 Days #7 patch 06/24/23 [Rx] cefUROXime axetiL [Cefuroxime] 500 mg PO BID 3 Days #6 tab 06/24/23 [Rx] Follow up Appointment(s)/Referral(s): None,Stated [REFERRING] - 1-2 days (Please follow up with your primary care provider TAR[facility] on discharge.) Jax Ford DO [Doctor of Osteopathic Medicine] - 2 Weeks (Follow-up for degenerative disease of cervical spine) Patient Instructions/Handouts: Transient Ischemic Attack (DC) Discharge Disposition: HOME SELF-CARE
--- NOTE | 2023-06-24 15:54 | P.PN ---
Subjective Progress Note Date: 06/24/23 I am following-up with patient and she feels about the same. No new neurological issues. Objective - Vital Signs Vital signs: Vital Signs Temp 98.1 F 06/24/23 11:04 Pulse 69 06/24/23 11:04 Resp 16 06/24/23 11:04 BP 132/80 06/24/23 11:04 Pulse Ox 95 06/24/23 11:04 FiO2 Intake & Output 06/23/23 06/24/23 06/24/23 18:59 06:59 18:59 Intake Total 480 250 Output Total 350 1300 200 Balance 130 -1050 -200 Intake: IV 10 Invasive Line 2 10 Oral 480 240 Output: Urine 350 1300 200 Other: Voiding Method External Catheter External Catheter External Catheter # Voids 1 1 1 - Exam GENERAL: The patient is sitting up in a chair and is not in acute distress. NEUROLOGICAL: Higher mental function: The patient is awake, alert, oriented to self, place and time. Patient is following commands. No aphasia and no neglect. Cranial nerves: The pupils are round, equal and reactive to light and accommodation. Visual melendez are full to confrontation throughout. Extraocular movement is intact no nystagmus is noted. Facial sensation is normal to touch throughout. The facial strength is normal throughout. Hearing is moderately decreased bilaterally to hand rub. Tongue is midline and moved [id number] without any difficulty. No dysarthria is noted. Shoulder shrug is normal bilaterally. Motor: The strength is 5 over 5 throughout. Normal tone and bulk. Cerebellum: Normal finger to nose bilaterally. Sensation: Sensation is normal to touch throughout. Reflexes (right/left): 2+ throughout. Plantars are mute bilaterally. Some of the work-up during this hospital visit consisted of: Calcium is 10.5. Sodium is 139. Lipid panel: Triglyceride is 113, cholesterol is 118, LDLs 30 and HDL 64. Urine Analysis seems the patient the possible underlying an acute UTI. CT head is reported as no acute hemorrhage, hydrocephalus or mass effect. I personally reviewed the CT and I agree there is no acute or subacute ischemia. 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 Carotid duplex is reported as tortuous left ICA likely causing turbulence and giving appearance of bidirectional flow. Recommend short interval follow-up to reassess at 3-4 weeks. No hemodynamic significant internal carotid artery on either side. CTA neck: It is reported as no flow-limiting stenosis bilateral carotid bifurcation. There is however torturous turn with some kinking of the internal carotid artery beyond the bifurcation to be contributing to some stenosis. Li mited visualization of the [place] appears normal. 2D echo: Impaired left ventricle function with ejection fraction 45-50% and septal/apical hypokinesis. Bioprosthetic aortic valve with mean gradient of 10. Overall technically difficult study. Repeat CT head is no acute intracranial hemorrhage or midline shift. There is mild diffuse age-related cerebral atrophy and mild to severe chronic small vessel ischemic change redemonstrated. No significant change from most recent prior CT. Note patient had a prolonged EEG to an half hours in our facility on 01/05/2023 and it's reported abnormal. No clinical or elect graphic seizures were recorded. No epileptiform activity was present. The frontally predominant delta range slowing and mentioned above with the left sided emphasis is not epileptiform in nature. The left frontal temporal focal theta range slowing and mentioned above is not epileptiform in nature. These findings indicate mild to moderate focal cerebral dysfunction with greater focal involvement of the left frontal more than the left temporal. - Labs CBC & Chem 7: 06/24/23 11:07 06/24/23 11:07 Labs: Abnormal Lab Results - Last 24 Hours (Table) 06/24/23 Range/Units 11: RDW 18.2 H (11.5-15.5) % Microbiology - Last 24 Hours (Table) 06/22/23 00:42 Urine Culture - Preliminary Urine,Voided Gram Neg Bacilli Assessment and Plan Assessment: This is an 82-year-old woman with history of prior stroke in the past who presents because of dizziness and slurring the speech and she notices symptoms at night on 06/21/2023. Her slurring the speech has improved. He has history of paroxysmal atrial fibrillation and is not on anticoagulation since history of GI bleed per patient. Transient episode of dysarthria and dizziness probable TIA. especially with history of atrial fibrillation and not on anticoag History of stroke in past. Probable acute UTI History of paroxysmal atrial fibrillation not on anticoagulation due to GI bleed. AICD History of coronary artery disease status post CABG History of severe aortic stenosis status post TAVR History of left CEA in 2000 Underlying history of hypertension History of tobacco use Plan: Cannot obtain MRIs since patient has AICD. CTA neck: It is reported as no flow-limiting stenosis bilateral carotid bifurcation. There is however torturous turn with some kinking of the internal carotid artery beyond the bifurcation to be contributing to some stenosis. Limited visualization of the [place] appears normal. Recommend the patient to follow-up with vascular surgery as outpatient for further evaluation 2D echo: Impaired left ventricle function with ejection fraction 45-50% and septal/apical hypokinesis. Bioprosthetic aortic valve with mean gradient of 10. Overall technically difficult study. Recommend the patient to follow-up with the dental ceramist assistant. Patient is on home of Plavix 75 mg daily at bedtime and during this hospital stay patient was started on aspirin 325 mg daily by the ED team. Patient is on Lipitor 80 mg daily at bedtime. We'll defer that use of anticoagulation to her dental ceramist assistant and primary team. Routine neurochecks Cardiac monitoring PT OT and METAL TILE SETTER are consulted Patient had a prolonged EEG on 01/05/2023 which I order it and it was reported as no seizure or epileptiform discharges. I ordered since the patient was having frequent numbness and tingling in arms and legs and there is concern about his seizure. I initially started the patient on Keppra but seems that she has side effects and I transitioned her in the past to Vimpat. Please refer to my previous notes for further details. But the patient is not taken Vimpat. I'll defer the management to her neurologist as an outpatient. We'll defer the rest of the medical management to the primary team For DVT prophylaxis the patient is on Lovenox. Recommend the patient to follow-up with a neurologist as an outpatient within 1- 2 weeks. I Attempted to contact her grand-daughter via phone but no response. Time with Patient: Less than 30
== END 2023-06-24 15:30 | disposition home or self-care (01) | DRG 69 ==
LOC: EC 00:22 → 1SOBS 04:59 → 3SCARD 14:10 → OBSVTOIN 06-24 10:27
PROVIDERS: ADMIT Hospitalist; ATTEND Hospitalist
DX: G45.9 Transient cerebral ischemic attack, unspecified (principal); I50.22 Chronic systolic (congestive) heart failure; N39.0 Urinary tract infection, site not specified; I11.0 Hypertensive heart disease with heart failure; D64.9 Anemia, unspecified; J44.9 Chronic obstructive pulmonary disease, unspecified; I48.0 Paroxysmal atrial fibrillation; I16.0 Hypertensive urgency; I25.5 Ischemic cardiomyopathy; I35.0 Nonrheumatic aortic (valve) stenosis; E78.5 Hyperlipidemia, unspecified; I25.10 Atherosclerotic heart disease of native coronary artery without angina pectoris; I25.2 Old myocardial infarction; R47.81 Slurred speech; R47.1 Dysarthria and anarthria; F41.9 Anxiety disorder, unspecified; G89.29 Other chronic pain; M50.30 Other cervical disc degeneration, unspecified cervical region; M19.90 Unspecified osteoarthritis, unspecified site; Z79.02 Long term (current) use of antithrombotics/antiplatelets; Z79.899 Other long term (current) drug therapy; Z86.73 Personal history of transient ischemic attack (TIA), and cerebral infarction without residual deficits; Z87.891 Personal history of nicotine dependence; Z95.810 Presence of automatic (implantable) cardiac defibrillator; Z95.1 Presence of aortocoronary bypass graft; Z95.5 Presence of coronary angioplasty implant and graft; Z95.2 Presence of prosthetic heart valve; Z87.440 Personal history of urinary (tract) infections; K21.9 Gastro-esophageal reflux disease without esophagitis
CPT/HCPCS: 36415; 70450; 70498; 80048; 80053; 80061; 81001; 83605; 83735; 83880; 84100; 84484; 85025; 85027; 85610; 85730; 86140; 87077; 87086; 87186; 93005; 93306; 93880; 94760; 96361; 96365; 96366; 96375; 99291

== ENCOUNTER → 2023-07-23 | Outpatient (CLI) | payer MEDICARE, BC ==
--- NOTE | 2023-07-24 13:52 | US ---
EXAMINATION TYPE: US bladder DATE OF EXAM: 07/23/2023 COMPARISON: NONE CLINICAL INDICATION: Female, 82 years old with history of N39.41 URGE INCONTINENCE; URGENCY AND INCON TINENCE TECHNIQUE: Multiple sonographic images of the bladder are obtained. FINDINGS: EXAM MEASUREMENTS: Prevoid urinary bladder volume: 108 mL Post Void Residual Volume: 24 mL [employer] NOTES: Color Doppler performed to assess ureteral jets. Bilateral Jets seen: No Normal Post Void Residual (less than 50ml): YES PATIENT SENT OUT TO FILL HER BLADDER, STILL POORLY DISTENDED AFTER PATIENT FELT FULL IMPRESSION: 1. No acute changes ultrasound urinary bladder. No urinary retention evident.
== END | disposition home or self-care (01) ==
LOC: RADUSWWP 13:01
PROVIDERS: ATTEND Family Medicine
DX: N39.41 Urge incontinence (principal)
CPT/HCPCS: 76857

== ENCOUNTER 2024-04-26 14:52 | Emergency (ER) | payer MEDICARE, BC ==
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
[2024-04-26] MEDS: SODIUM CHLORIDE 0.9% 500 ML 500 ML IV STA (15:53)
[2024-04-26 16:01] LABS: Basophils % (A) 1 %; Eosinophils # (A) 0.2 k/uL (0-0.7); Eosinophils % (A) 2 %; HCT 41.7 % (34.0-46.0); HGB 13.5 gm/dL (11.4-16.0); Lymphocytes # (A) 1.6 k/uL (1.0-4.8); Lymphocytes % (A) 21 %; MCH 32.8 pg (25.0-35.0); MCHC 32.4 g/dL (31.0-37.0); MCV 101.4 fL (80.0-100.0); Mean Platelet Volume 7.3; Monocytes # (A) 0.5 k/uL (0-1.0); Monocytes % (A) 6 %; Neutrophils # (A) 5.1 k/uL (1.3-7.7); Neutrophils % (A) 68 %; Platelet Count 167 k/uL (150-450); RBC 4.12 m/uL (3.80-5.40); RDW 12.9 % (11.5-15.5); WBC 7.5 k/uL (3.8-10.6)
[2024-04-26 16:11] LABS: ALT 18 U/L (4-34); AST 29 U/L (14-36); African American GFR (CKD) 89 (>60 ml/min/1.73 sqM); Albumin 4.5 g/dL (3.5-5.0); Alkaline Phosphatase 111 U/L (38-126); Anion Gap 3 mmol/L; Blood Urea Nitrogen 17 mg/dL (7-17); Calcium 10.6 mg/dL (8.4-10.2); Carbon Dioxide 30 mmol/L (22-30); Chloride 105 mmol/L (98-107); Glucose 97 mg/dL (74-99); Non-African American GFR(CKD) 77 (>60 ml/min/1.73 sqM); Potassium 4.2 mmol/L (3.5-5.1); Sodium 138 mmol/L (137-145); Total Bilirubin 1.3 mg/dL (0.2-1.3); Total Protein 6.7 g/dL (6.3-8.2)
[2024-04-26 16:15] LABS: Prothrombin Time 10.9 sec (10.0-12.5)
[2024-04-26 16:19] LABS: NT-Pro-B-Type Natriuretic Pept 276 pg/mL
--- NOTE | 2024-04-26 16:49 | CT ---
EXAMINATION TYPE: CT brain wo con DATE OF EXAM: 04/26/2024 COMPARISON: 06/23/2023 HISTORY: Dizziness, hx of prior CVA. CT DLP: 1106.[address] of the brain was performed. The ventricles, basal cisterns and sulci overlying the cerebral convexities demonstrate mild enlargem ent. Remote lacunar infarct seen. There is no evidence for intracranial hemorrhage or sulcal effacement. There is decreased attenuation about the periventricular white matter and deep white matter of both c erebral hemispheres, compatible with chronic small vessel ischemia. Differential diagnosis does inclu de demyelination. No mass effects are seen.No midline shift. Osseous calvarium is intact. If symptoms persist consider MRI. IMPRESSION: 1. Age related atrophic and chronic small vessel ischemic change without acute intracranial process s een at this time. [facility], , 04/26/2024 4:47 PM
--- NOTE | 2024-04-26 16:52 | XR ---
EXAMINATION TYPE: XR chest 2V DATE OF EXAM: 04/26/2024 COMPARISON: 01/04/2023 HISTORY: Shortness of breath TECHNIQUE: Frontal and lateral views of the chest are obtained. FINDINGS: Scattered senescent parenchymal changes noted. Hyperinflation compatible with COPD. No evidence for infiltrate. No evidence for atelectasis. Heart size is stable. Mediastinal structures are stable and grossly unremarkable. No evidence for hilar prominence. Degenerative changes dorsal spine. IMPRESSION: 1. No evidence for acute pulmonary disease. [facility], , 04/26/2024 4:49 PM
[2024-04-26 16:53] LABS: Appearance,Urine Cloudy (Clear); Bacteria,Urine Many /hpf; Bilirubin,Urine Negative (Negative); Blood,Urine Trace (Negative); Color,Urine Colorless; Glucose,Urine (UA) Negative (Negative); Ketones,Urine Negative (Negative); Leukocyte Esterase,Urine Large (Negative); Mucus,Urine Rare /hpf; Nitrite,Urine Positive (Negative); PH, Urine 5.5 (5.0-8.0); Protein,Urine Negative (Negative); RBC,Urine 34 /hpf (0-5); Specific Gravity,Urine 1.013 (1.001-1.035); Squamous Epithelial Cell,Urine 4 /hpf (0-4); Urobilinogen,Urine <2.0 mg/dL (<2.0); WBC,Urine >182 /hpf (0-5)
--- NOTE | 2024-04-26 17:02 | CT ---
EXAMINATION TYPE: CT abdomen pelvis wo con DATE OF EXAM: 04/26/2024 COMPARISON: None HISTORY: decreased UoP, dysuria CT DLP: 1681.8 mGycm Examination of the solid and hollow viscera is limited given the lack of contrast. FINDINGS: LUNG BASES: No evidence for nodule. No evidence for infiltrate. LIVER/GB: The gallbladder is surgically absent. No space-occupying hepatic lesion. PANCREAS: No pancreatic mass identified. No inflammatory process seen. SPLEEN: No evidence for splenomegaly. No intrasplenic lesions seen. ADRENALS: No adrenal nodules identified. No evidence for thickening. KIDNEYS: Exophytic hypoattenuating lesion anterior lip left kidney in its upper pole measuring 3.4 cm . No solid renal masses. No nephrolithiasis. No hydronephrosis. Urinary bladder wall thickening may r eflect underlying cystitis. Correlate clinically. BOWEL: No evidence of bowel obstruction. No inflammatory process. Sigmoid diverticulosis without dive rticulitis. Partial colectomy changes noted. Lymph nodes: No evidence for adenopathy greater than 1 cm. Abdominal aorta: Atheromatous changes seen. The ascending thoracic aortic aneurysm at the level of th e aortic hiatus measuring 3.9 cm. Infrarenal abdominal aortic aneurysm measuring 4.1 cm. Genital organs: No significant abnormality. Other: Ventral hernia containing one or 2 segments of small bowel without evidence for strangulation. No evidence for small bowel obstruction. IMPRESSION: 1. Wall thickening suggestive of the urinary bladder. Correlate for underlying cystitis. 2. Descending thoracic aortic aneurysm and aneurysm of the infrarenal abdominal aorta. No complicatin g factors suggested. [facility], , 04/26/2024 4:59 PM
[2024-04-26] MEDS: cefTRIAXone IN SWFI 1,000 MG/10 ML SYRINGE IVP STA (17:39)
[2024-04-26 18:55] VITALS: BP 174/89; PULSE 68; RESP 18; TEMP 97.9
== END 2024-04-26 18:55 | disposition home or self-care (01) ==
LOC: EC 14:52
CPT/HCPCS: 36415; 51798; 70450; 71046; 74176; 80053; 81001; 83880; 84443; 84484; 85025; 85610; 87086; 93005; 96374; 99284

== ENCOUNTER → 2024-05-17 | Outpatient (CLI) | payer MEDICARE, BC ==
[2024-05-17 13:11] LABS: African American GFR (CKD) 87 (>60 ml/min/1.73 sqM); Blood Urea Nitrogen 11 mg/dL (7-17); Non-African American GFR(CKD) 75 (>60 ml/min/1.73 sqM)
--- NOTE | 2024-05-17 14:35 | CT ---
EXAMINATION TYPE: CT angio chest CT DLP: 637.4 mGycm, Automated exposure control for dose reduction was used. DATE OF EXAM: 05/17/2024 1:50 PM COMPARISON: CT chest 07/29/2022, 08/13/2021, 08/05/2020 CLINICAL INDICATION:Female, 83 years old with history of THORACIC AORTIC ANEURYSM W/O RUPTURE I71.20; thoracic aortic aneurysm TECHNIQUE/CONTRAST: CTA scan of the thorax is performed without and with IV Contrast, patient injected with 86 mL of Isov ue 370. 3D reconstructed images are created on an independent workstation and reviewed.. FINDINGS: Lungs/Pleura: No evidence of focal consolidation, pleural effusion or pneumothorax. Scattered calcifi ed granulomas. Development of a medial left lower lobe lesion measuring 3.2 x 2.2 centimeters (series 5, showed a 4). This abuts the descending thoracic aorta. Airway: Large airways are patent. Heart: The heart is mildly enlarged for size.. No pericardial effusion. Left chest wall 2-lead cardia c pacemaker device with leads terminating in the right atrium and right ventricle. Surgical changes f rom TAVR. Vasculature: Conventional three-vessel aortic arch. Atherosclerotic calcification of the aorta and it s branches. Stable ascending thoracic aortic aneurysm measuring up to 5.8 cm. Aneurysm of the aortic arch measuring up to 4.3 cm is stable. Stable aneurysmal dilatation of the descending thoracic aorta measuring up to 4.2 cm near the hiatus. Partial visualization of aneurysmal dilatation of the infrare nal abdominal aorta measuring up to 3.4 cm. No evidence for intramural hematoma or dissection. Mediastinum: Mildly enlarged left infrahilar 1.4 cm lymph node (series 6, image 72). Musculoskeletal: No acute osseous abnormalities. Median sternotomy wires. Soft Tissues: Unremarkable. Lower neck: No significant findings. Upper Abdomen: Partial visualization of left renal 3.5 cm cyst. Gallbladder is surgically absent with expected extrahepatic biliary duct dilatation. Visualization of bowel anastomosis within the anterio r left mid abdomen. IMPRESSION: 1. Stable aneurysm dilatation throughout the ascending thoracic, descending thoracic and partially v isualized infrarenal abdominal aorta. No evidence for intramural hematoma or dissection. 2. Development of medial left lower lobe 3.2 cm pulmonary mass with additional left infrahilar enlar ged lymph node. Further evaluation with PET/CT is recommended. 3. Sequelae of prior granulomatous disease. [facility], , 05/17/2024 2:33 PM
== END | disposition home or self-care (01) ==
LOC: RADCTMAIN 12:01
PROVIDERS: ATTEND Thoracic Surgery (Cardiothoracic Vascular Surgery)
CPT/HCPCS: 36415; 71275; 82565; 84520

== ENCOUNTER → 2024-06-09 | Outpatient (CLI) | payer MEDICARE, BC ==
--- NOTE | 2024-06-13 14:13 | PE ---
EXAMINATION TYPE: PET CT fusion skull to thigh DATE OF EXAM: 06/09/2024 CLINICAL INDICATION:Female, 83 years old with history of C34.32 MALIGNANT NEOPLASM OF LOWER LOBE, LEF T BRONCHUS OR ABDIRASHID; TECHNIQUE: Following the intravenous administration of 98 mCi of F-18 FDG, whole body images are pe rformed from the skull base to the midthigh. Images are reviewed on the computer in the coronal, axi al, and sagittal planes. Reconstructed rotating images are created on independent workstation and re viewed on the computer. A non-contrast CT is performed in conjunction with the PET scan. Glucose le lilian r mg/dL CT DLP: 416.82 mGycm, Automated exposure control for dose reduction was used. COMPARISON: CT 05/17/2024, PET/CT None, MRI: None FINDINGS: Mediastinal SUV mean is 2.4. Hepatic parenchyma SUV mean is 2.8. SKULL BASE AND NECK: No suspicious radiotracer activity. CHEST, MEDIASTINUM, AND HILAR REGION: Left lower lung pulmonary nodule medially measuring 36 x 27 mm Max SUV 14.5. Left pulmonary hilum lym ph node max SUV 8.5. ABDOMEN AND PELVIS: No suspicious radiotracer activity. MUSCULOSKELETAL STRUCTURES: No suspicious radiotracer activity. Multiple ribs with mild uptake anteriorly suggestive of fractures. OTHER CT: Ascending thoracic aorta aneurysmal dilation up to 6.0 cm. Severe atherosclerosis of the co ronary arteries with post surgical changes. Aortic valve replacement changes. Cardiac conduction lead s terminating in right ventricle and right atrium. Fusiform aneurysmal dilation of the abdominal aorta proximally measuring 43 x 36 mm. The abdominal fu siform aneurysm measuring up to 4.0 cm inferiorly. Scattered colonic diverticula. The gallbladder lavern gically absent. Postsurgical changes to the left upper quadrant bowel. Anterior abdominal wall ectasia with suspected hernia repair mesh with anchors. There remains wide ne cked diastases of the anterior abdominal wall. IMPRESSION: 1. Left left lower lung mass with metastatic disease to at least the left pulmonary hilum with 1 FDG avid lymph node. 2. Multiple right-sided anterior rib uptake suggestive of fractures. [facility], , 06/13/2024 2:11 PM
== END | disposition home or self-care (01) ==
LOC: RADPETMAIN 11:50
PROVIDERS: ATTEND Thoracic Surgery (Cardiothoracic Vascular Surgery)
DX: C34.32 Malignant neoplasm of lower lobe, left bronchus or lung (principal); K57.30 Diverticulosis of large intestine without perforation or abscess without bleeding; I71.40 Abdominal aortic aneurysm, without rupture, unspecified; I25.10 Atherosclerotic heart disease of native coronary artery without angina pectoris; I71.11 Aneurysm of the ascending aorta, ruptured
CPT/HCPCS: 78815; A9552

== ENCOUNTER 2024-06-29 11:08 | Day surgery (SDC) | payer MEDICARE, BC ==
[2024-06-28 08:56] VITALS: BMI 25.1
[~2024-06-29 11:08] MED LIST changes: -ASPIRIN 325 MG TAB PO ONE; -ATORVASTATIN 10 MG TAB PO ONE; -CLEVIDIPINE BUTYRATE 25 MG in EMPTY BAG 1 BAG IV PRN; -CLOPIDOGREL 75 MG TAB PO ONE; -ELECTROLYTE-A SOLUTION 1,000 ML with POTASSIUM CHLORIDE 100 MEQ, MAGNESIUM SULFATE 16 M... IV PRN; -INSULIN REGULAR 100 UNIT in SODIUM CHLORIDE 0.9% 100 ML IV PRN; -METOPROLOL TARTRATE 25 MG TAB PO ONE; -NITROGLYCERIN-D5W PMX 25 MG/250 ML BTL IV PRN; -PROTAMINE SULFATE 250 MG in EMPTY BAG 1 BAG IV PRN; -SODIUM CHLORIDE 0.9% 500 ML 500 ML INTRAARTER PRN; -TRANEXAMIC ACID 2,000 MG in SODIUM CHLORIDE 0.9% 80 ML IV PRN
[2024-06-29] MEDS: IV FLUID CONTINUATION 1,000 ML IV ONE (12:02)
[2024-06-29] MEDS: LACTATED RINGERS 1,000 ML IV SCH (12:19)
--- NOTE | 2024-06-29 12:28 | CT ---
EXAMINATION TYPE: CT Chest wo ION protocol DATE OF EXAM: 06/29/2024 COMPARISON: None CLINICAL INDICATION: Female, 83 years old with history of ION BRONCH; PHH, PROP PROCEDURE TECHNIQUE: CT scan of the thorax is performed without IV contrast. CT DLP: [address] CTDI: mGy Automated exposure control for dose reduction was used. FINDINGS: There is a 3.8 x 3.1 cm bilobed mass in the left lower lobe with mildly spiculated margins highly kathia picious for neoplasm. There are multiple innumerable scattered calcified granulomas. There is no airspace consolidation. There is no abnormal interstitial density. There is no pleural effusion or pneumothorax. There is marked diffuse fusiform aneurysmal dilatation of the thoracic aorta. The ascending thoracic aorta is 6.1 cm. The aortic arch is 3.9 cm and the descending thoracic aorta is 4 cm. There is no med iastinal, hilar or axillary adenopathy. There is a prosthetic aortic valve. There is a AICD device. Limited scanning through the upper abdomen reveals no gross abnormality. No focal osseous lesions are seen. IMPRESSION: 1. 3.8 x 3.1 cm left lower lobe mass highly suspicious for neoplasm. 2. Marked fusiform dilatation of the thoracic aorta. 3. Prosthetic aortic valve. 4. No acute cardiopulmonary disease. Fleischner?s [place] [employer] or [employer]. [facility], , 06/29/2024 12:26 PM
[2024-06-29] MEDS ORDERED: PROPOFOL 10 MG/ML 20 ML VIAL IV ONE (12:40)
[2024-06-29] MEDS ORDERED: GLYCOPYRROLATE 0.2 MG/ML 2 ML VIAL ONE (12:40)
[2024-06-29] MEDS ORDERED: LIDOCAINE 2% (PF) 20 MG/ML 5 ML VIAL ONE (12:40)
[2024-06-29] MEDS ORDERED: fentaNYL (PF) 50 MCG/ML 2 ML AMP ONE (12:40)
[2024-06-29] MEDS ORDERED: SUCCINYLCHOLINE CHLORIDE 200 MG/10 ML VIAL IV ONE (12:40)
[2024-06-29] MEDS ORDERED: ROCURONIUM 10 MG/ML (5 ML VIAL) IV ONE (12:40)
[2024-06-29] MEDS ORDERED: NEOSTIGMINE 1 MG/ML 10 ML VIAL ONE (12:40)
[2024-06-29] MEDS ORDERED: PHENYLEPHRINE-0.9% NACL SYG 1,000 MCG/10 ML SYRINGE ONE (12:40)
--- NOTE | 2024-06-29 13:57 | P.PCN ---
Date of Procedure: 06/29/24 Operative Findings: Preoperative Diagnosis: Left lower lobe mass Left infrahilar lymph node Postoperative Diagnosis: Left lower lobe mass Left infrahilar lymph node Procedure(s) Performed: Flexible bronchoscopy Robotic-assisted bronchoscopy and addition to radial ultrasound evaluation of the left lower lobe mass Robotic-assisted transbronchial transbronchial needle aspirate, transbronchial biopsies and bronchoalveolar lavage of the left lower lobe mass Endobronchial ultrasound Transbronchial needle aspirate of left infrahilar lymph node Anesthesia: GETA Surgeon: Gordon Perez Estimated Blood Loss (ml): 0 Pathology: other Condition: stable Disposition: same day Operative Findings: A physical exam was performed. Informed consent was obtained from the patient after explaining all the risks (pneumothorax, life threatening bleeding, infection and adverse effects due to medications), benefits and alternatives to the procedure which the patient appeared to understand and so stated. The patient was connected to the monitoring devices. General anesthesia was induced and the patient was intubated by anesthesia. A final timeout was performed and the procedure confirmed by the attending staff bronchoscopist. The bronchoscope was inserted and the airway examined. Airway examination shows that the distal trachea, Right upper lobe and middle lobe and lower lobe bronchi was all within normal limits. The left mainstem bronchus is within normal limits. Examination of left lower lobe was within normal limits. The left upper lobe bronchus and the lingular segment was also patent within normal limits. The flexible bronchoscope was removed and the robotic bronchoscope was inserted. Registration was completed. I next guided the robotic bronchoscope using the navigation system into the left lower lobe mass and the navigation was done through the posterior segment of the left lower lobe. Once in proper position, the bronchoscope was frozen. The radial EBUS probe was placed through the bronchoscope and confirmed abnormal u/s images vs normal lung. A needle was placed through the working channel and another fluoroscopic guidance, we sampled the area in the left lower lobe where the mass was present. We then used a clot biopsy pattern with ultrasound confirmation for 3 additional passes with the needle. Rapid onsite cytology evaluation was done and the samples were found to be adequate. Following that, a forceps were next introduced through working channel and extended the appropriate distance and 2 transbronchial biopsies were performed using fluoroscopic guidance. The u/s probe was then reinserted to confirm location. When confirmed this process was repeated for a total of 6 transbronchial biopsies. Following that, a total of 40 cc of saline was infused into the left lower lobe lobe and approximately 10 cc of saline was aspirated and the bronchioloalveolar lavage was sent for cytologic evaluation. Following that, ION bronchoscope was removed. The endobronchial ultrasound was inserted and a full evaluation of the mediastinal lymph nodes was done. Upon careful investigation with endobronchial ultrasound, a 16 x 14 mm left infrahilar lymph node. Using a 22-gauge position needle, transbronchial needle aspirate of the left infrahilar lymph node was done and a total of 3 passes was taken without any complications. The rest of the mediastinal stations showed no significant pathologic mediastinal lymphadenopathy. Endobronchial ultrasound was removed. Flex. bronchoscope was inserted and regular suctioning was done. At the completion of the procedure, no residual secretions or bloody material within the airway. The bronchoscope was removed. The patient was extubated. FINDINGS: 1. The airways appeared normal 2 Successful navigation, ultrasonographic identification, and biopsies of left lower lobe mass 3. The the radial ultrasound view was concentric 4. Endobronchial ultrasound with biopsy of the left infrahilar lymph node RECOMMENDATIONS: Await pathology and cytology results The referring physician will be alerted to the results when available. The patient was advised to follow up with the referring physician with the biopsy results Patient will be called with results.
[2024-06-29 14:03] VITALS: TEMP 97.2
--- NOTE | 2024-06-29 14:03 | FL ---
Fluoroscopy INDICATION: Pain FINDINGS: Fluoroscopy time: 58 seconds. Total dose area product (DAP) in uGy*m?, mGy*cm? (or similar): 3.8475 Images obtained: 8. Images were obtained for a left lower lobe bronchoscopy IMPRESSION: 1. Documentation of fluoroscopy. [facility], , 06/29/2024 2:01 PM
[2024-06-29 14:55] VITALS: PULSE 63; RESP 16
--- NOTE | 2024-06-29 15:02 | XR ---
EXAMINATION TYPE: XR chest 1V DATE OF EXAM: 06/29/2024 2:17 PM COMPARISON: None. CLINICAL INDICATION: Female, 83 years old with history of post bx, TECHNIQUE: XR chest 1V view(s) obtained. FINDINGS: The heart size is normal. The pulmonary vasculature is normal. The lungs are clear. Pacemaker overlies left chest. Sternotomy wires are present. IMPRESSION: 1. No acute pulmonary process. [facility], , 06/29/2024 3:00 PM
[2024-06-29 15:23] VITALS: BP 138/78
== END 2024-06-29 16:03 | disposition home or self-care (01) ==
LOC: ORWHC2ENDO 11:08
PROVIDERS: ATTEND Internal Medicine Critical Care Medicine
DX: C34.32 Malignant neoplasm of lower lobe, left bronchus or lung (principal); J44.9 Chronic obstructive pulmonary disease, unspecified; I25.10 Atherosclerotic heart disease of native coronary artery without angina pectoris; I35.0 Nonrheumatic aortic (valve) stenosis; I25.5 Ischemic cardiomyopathy; I77.9 Disorder of arteries and arterioles, unspecified; M19.90 Unspecified osteoarthritis, unspecified site; F41.9 Anxiety disorder, unspecified; I48.91 Unspecified atrial fibrillation; E78.5 Hyperlipidemia, unspecified; I10 Essential (primary) hypertension; I25.2 Old myocardial infarction; I73.9 Peripheral vascular disease, unspecified; Z79.82 Long term (current) use of aspirin; Z79.899 Other long term (current) drug therapy; Z79.02 Long term (current) use of antithrombotics/antiplatelets; Z87.891 Personal history of nicotine dependence; Z86.73 Personal history of transient ischemic attack (TIA), and cerebral infarction without residual deficits; Z95.1 Presence of aortocoronary bypass graft; Z95.5 Presence of coronary angioplasty implant and graft; Z98.890 Other specified postprocedural states; Z90.49 Acquired absence of other specified parts of digestive tract; Z88.8 Allergy status to other drugs, medicaments and biological substances
CPT/HCPCS: 87496; 87498; 87529; 88108; 88305; 88342; 87502; 87798 ×2; 87634; 88341; 87070; 87205; 87116; 87102; 87206; 87635; 71045; 71250; 31628; 31629; 31624; 31652; J0330; J2710; J3010; J2704; J2003; J2371; J1596; S2900; 87075

== ENCOUNTER → 2024-08-10 | Outpatient (CLI) | payer MEDICARE, BC ==
[2024-08-10 11:28] LABS: African American GFR (CKD) 74 (>60 ml/min/1.73 sqM); Blood Urea Nitrogen 22 mg/dL (7-17); Non-African American GFR(CKD) 64 (>60 ml/min/1.73 sqM)
--- NOTE | 2024-08-10 12:40 | CT ---
EXAMINATION TYPE: CT brain w con DATE OF EXAM: 08/10/2024 COMPARISON: Prior CT brain without April 26, 2024 CLINICAL INDICATION: Female, 84 years old with history of C34.92 Lung I25.2 Old [place]; PHH, Lung cancer. TECHNIQUE: CT of the brain is performed with IV Contrast, patient injected with 100ml mL of Isovue 300. CT DLP: 1117.2 mGycm Automated exposure control for dose reduction was used. FINDINGS: There is no abnormal enhancing mass or midline shift identified. The ventricles and sulci are within normal limits in size for patient's age. Moderate scattered areas of low-attenuation throughout the deep and periventricular white matter is redemonstrated. 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 Bilateral aphakia again seen. The visualized sinuses are clear. IMPRESSION: No suspicious enhancing intraparenchymal masses to suggest metastatic disease to the brai n. Stable moderate nonspecific white matter changes favor product of chronic small vessel ischemia in patient of this age. [facility], , 08/10/2024 12:37 PM
--- NOTE | 2024-08-10 16:12 | CT ---
EXAMINATION TYPE: CT ChestAbdPelvis w con DATE OF EXAM: 08/10/2024 COMPARISON: Most recent PET/CT June 09, 2024 HISTORY: Lung cancer. CT DLP: 1214.3 mGycm. Automated Exposure Control for Dose Reduction was Utilized. CONTRAST: CT scan of the thorax, abdomen and pelvis is performed with IV Contrast, patient injected with 100ml mL of Isovue 300. FINDINGS: LUNGS: [id number] underlying emphysematous changes are redemonstrated. Persistent medial left m id lung mass or neoplasm measuring 3.7 x 2.3 cm axial image 37 not significantly changed from PET/CT. No significant new greater than 6 mm pulmonary nodules. MEDIASTINUM: Persistent suspicious 1.0 cm left hilar lymph node axial image 32 appears slightly large r from PET/CT. No new greater than 1 cm thoracic adenopathy. Overlying sternal wires and mediastinal clips are redemonstrated. Ascending aortic aneurysm 5.6 cm image 28 is redemonstrated. Cardiac pacema ker device again seen. Surgical change at level of aortic valve is redemonstrated. LIVER/GB: Calculi are seen and presumed surgically absent. Metallic linear density or biliary stent i s redemonstrated. Common bile duct measures nearly 16 mm coronal image 34. No significant intrahepati c biliary dilatation. PANCREAS: No significant abnormality is seen. SPLEEN: No significant abnormality is seen. ADRENALS: No or adrenal masses. KIDNEYS: Persistent 3.7 cm exophytic thin-walled cyst anteriorly from the left kidney. BOWEL: Sigmoid colonic diverticulosis. GENITAL ORGANS: No gross abnormality seen. LYMPH NODES: No new greater than 1 cm adenopathy. OSSEOUS STRUCTURES: Multilevel spondylolisthesis and disc space narrowing in the lumbar spine is rede monstrated. Healing or healed lower anterior right rib fractures are again seen. OTHER: Persistent distal AAA up to 4.2 cm on axial image 75. Evidence of prior ventral wall hernia re pair surgery with eventration but no new hernia defect. IMPRESSION: Stable in size medial left lung mass or neoplasm. Left hilar lymph node appears slightly larger in size. No new suspicious masses or adenopathy are identified. [facility], , 08/10/2024 4:10 PM
== END | disposition home or self-care (01) ==
LOC: RADCTMAIN 10:32
PROVIDERS: ATTEND Internal Medicine
DX: C34.92 Malignant neoplasm of unspecified part of left bronchus or lung (principal); R90.82 White matter disease, unspecified
CPT/HCPCS: 82565; 84520; 70460; 71260; 74177; 36415; Q9967

== ENCOUNTER 2024-09-21 11:49 | Inpatient (IN) | payer MEDICARE, BC ==
--- NOTE | 2024-09-21 12:24 | ED ---
General Adult HPI - General Chief complaint: Abdominal Pain Stated complaint: flank pain Time Seen by Provider: 09/21/24 12:04 Source: patient, EMS Mode of arrival: EMS - History of Present Illness Initial comments: Dictation was produced using [employer] dictation software. please excuse any grammatical, word or spelling errors. Chief Complaint: 84-year-old female with right-sided flank pain History of Present Illness: Patient is an 84-year-old female presents emergency department with right-sided flank pain. Patient has been having right-sided flank pain for the last 3 days. She was at home and did not feel comfortable. Her friend called EMS patient was brought to the ER. Patient states that pain has been causing her to not be able to sleep. She has a history of lung cancer has been undergoing radiation and chemotherapy. Denies any fever, chills or night sweats. No diarrhea. No urinary symptoms. Pain is nonradiating. The ROS documented in this emergency department record has been reviewed and confirmed by me. Those systems with pertinent positive or negative responses have been documented in the HPI. All other systems are other negative and/or noncontributory. - Related Data Home Medications Medication Instructions Recorded Confirmed Atorvastatin [Lipitor] 80 mg PO HS 01/03/16 09/21/24 Ascorbic Acid [Vitamin C] 1,000 mg PO DAILY 04/26/24 09/21/24 Cholecalciferol [Vitamin D3 (25 25 mcg PO DAILY 04/26/24 09/21/24 Mcg = 1000 Iu)] Cyanocobalamin [Vitamin B-12] 500 mcg PO DAILY 04/26/24 09/21/24 Famotidine/Ca Carb/Mag Hydrox 1 tab PO DAILY 04/26/24 09/21/24 [Pepcid Complete Tablet Chew] Psyllium Husk [Fiber Capsule] 0.4 gm PO DAILY 04/26/24 09/21/24 Quercetin 500 mg PO DAILY 04/26/24 09/21/24 Zinc Sulfate [Orazinc] 25 mg PO DAILY 04/26/24 09/21/24 Acetaminophen Tab [Tylenol Tab] 1,500 mg PO HS 09/21/24 09/21/24 HYDROcodone/APAP 5-325MG [[place] 1 tab PO DAILY PRN 09/21/24 09/21/24 5-325] Ketorolac [Toradol] 10 mg PO DIRECTED PRN 09/21/24 09/21/24 Omeprazole [PriLOSEC] 20 mg PO BID 09/21/24 09/21/24 Previous Rx's Medication Instructions Recorded Aspirin 81 mg PO DAILY 30 Days #30 tab 06/24/23 Allergies Allergy/AdvReac Type Severity Reaction Status Date / Time lacosamide [From Vimpat] AdvReac AMS Verified 09/21/24 15:43 levetiracetam [From Keppra] AdvReac AMS Verified 09/21/24 15:43 Review of Systems ROS Statement: Those systems with pertinent positive or pertinent negative responses have been documented in the HPI. ROS Other: All systems not noted in ROS Statement are negative. Past Medical History Past Medical History: Atrial Fibrillation, Coronary Artery Disease (CAD), Cancer, COPD, CVA/TIA, GERD/Reflux, GI Bleed, Hyperlipidemia, Hypertension, Myocardial Infarction ([place]), Osteoarthritis (OA), Vascular Disorder Additional Past Medical History / Comment(s): left lung CA, 07/2024 with chemo and radiation. 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, 02/2020 TIA, TIA 10/2022, carotid stenosis with L carotid endartectomy, pt states she has had irregular heart beat in past but cannot recall type, aortic stenosis/regurgitation, vertigo, balance issues-uses walker, back pain/disc problems, benign colon polyp,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 Last Myocardial Infarction Date:: 2000 History of Any Multi-Drug Resistant Organisms: None Reported Past Surgical History: AICD, Appendectomy, Bowel Resection, Cholecystectomy, Coronary Bypass/CABG, Heart Catheterization With Stent, Hernia Repair, Orthopedic Surgery Additional Past Surgical History / Comment(s): Arch studies, 2000 PCI with stents, 2002 CABG-3 vessel, 2002 AICD, AICD gen changes, DFTs, 2002 L carotid endartectomy, bowel resection for benign flat polyp, abdominal hernia repair, L hip fracture with surgery, L arm benign lesion removed, colonoscopies/polyps, ALEXIS Past Anesthesia/Blood Transfusion Reactions: No Reported Reaction, Motion Sickness Additional Past Anesthesia/Blood Transfusion Reaction / Comment(s): woke up during battery replacement in defibrillator Date of Last Stent Placement:: 2000 Type of Cardiac Device: AICD Device Placement Date:: 2002- [place] Past Psychological History: Anxiety Smoking Status: Former smoker Past Alcohol Use History: None Reported Past Drug Use History: None Reported - Past Family History Sister(s) Family Medical History: Cancer Additional Family Medical History / Comment(s): Sister had breast/bladder cancers. Son(s) Family Medical History: Cancer Additional Family Medical History / Comment(s): pancreatic cancer Father Family Medical History: Cancer Additional Family Medical History / Comment(s): Bowel cancer. Mother Family Medical History: Cancer Additional Family Medical History / Comment(s): Mother had bowel cancer twice and 2nd time metastasized to her kidney. General Exam - General Exam Comments Initial Comments: PHYSICAL EXAM: General Impression: Alert and oriented x3, not in acute distress HEENT: Normocephalic atraumatic, extra-ocular movements intact, pupils equal and reactive to light bilaterally, mucous membranes moist. Cardiovascular: Heart regular rate and rhythm Chest: Able to complete full sentences, no retractions, no tachypnea Abdomen: abdomen soft, non-tender, non-distended, no organomegaly Musculoskeletal: Pulses present and equal in all extremities, no peripheral edema Motor: no focal deficits noted Neurological: CN II-XII grossly intact, no focal motor or sensory deficits noted Skin: Intact with no visualized rashes Psych: Normal affect and mood Course Vital Signs 09/21/24 09/21/24 09/21/24 11:51 15:48 16:38 Temperature 98.2 F Pulse Rate 73 77 78 Respiratory 16 18 18 Rate Blood Pressure 97/69 99/44 100/55 O2 Sat by Pulse 99 96 Oximetry EKG Findings - EKG Comments: EKG Findings:: My EKG interpretation: Ventricular rate 73, sinus rhythm, WV interval 163, QRS 97, QTc 376. No WV prolongation, no QTC prolongation, no ST or T-wave changes noted. EKG compared to April 26, 2024 showing no changes. Overall, this EKG is unremarkable Medical Decision Making - Medical Decision Making Was pt. sent in by a medical professional or institution (, PA, [employer]K [employer]ER, urgent care, hospital, or [facility]...) When possible be specific @ -No Did you speak to anyone other than the patient for history (EMS, parent, family, police, friend...)? What history was obtained from this source @ -No Did you review nursing and triage notes (agree or disagree)? Why? @ -I reviewed and agree with nursing and triage notes Were old charts reviewed (outside hosp., previous admission, EMS record, old EKG, old radiological studies, urgent care reports/EKG's, [facility] records)? Report findings @ -No old charts were reviewed Differential Diagnosis (chest pain, altered mental status, abdominal pain women, abdominal pain men, vaginal bleeding, musculoskeletal, weakness, fever, dyspnea, syncope, headache, dizziness, GI bleed, back pain, seizure, CVA, palpatations, mental health)? @ -Differential Abdominal Pain Women: Appendicitis, Cholecystitis, diverticulosis, ischemic bowel, pancreatitis, hepatitis, UTI, gastroenteritis, AAA, incarcerated hernia, bowel obstruction, constipation, inflammatory bowel, hepatitis, peptic ulcer disease, splenic infarction, perforated viscus, vulvitis, ovarian torsion, PID, kidney stone, placenta abruption, this is not meant to be an all-inclusive list EKG interpreted by me (3pts min.). @ -Above X-rays interpreted by me (1pt min.). @ -None done CT interpreted by me (1pt min.). @ -CT exam pelvis shows no acute processes U/S interpreted by me (1pt. min.). @ -None done What testing was considered but not performed or refused? (CT, X-rays, U/S, labs)? Why? @ -None What meds were considered but not given or refused? Why? @ -None Was smoking cessation discussed for >3mins.? @ -No Were there social determinants of health that impacted care today? How? (Homeles sness, low income, unemployed, alcoholism, drug addiction, transportation, low edu. Level, literacy, decrease access to med. care, fpc, rehab)? @ -No Was there de-escalation of care discussed even if they declined (Discuss DNR or withdrawal of care, Hospice)? DNR status @ -No What co-morbidities impacted this encounter? (DM, HTN, Smoking, COPD, CAD, Cancer, CVA, ARF, Chemo, Hep., AIDS, mental health diagnosis, sleep apnea, morbid obesity)? @ -Lung cancer Was patient admitted / discharged? Hospital course, mention meds given and route, prescriptions, significant lab abnormalities, going to OR and other pertinent info. @ -84-year-old female presents to the emergency department with right-sided flank pain. Vital signs stable. Laboratory evaluation obtained. Leukopenia 1.6 likely cancer treatment driven. Rest of blood work is unremarkable. Urinalysis positive for urinary tract infection. Given UTI plus flank pain is concerning for pyelonephritis. Patient not septic however will be admitted due to immunosuppression secondary to cancer treatment. Patient agreeable plan. Case discussed with hospitalist for admission Did you discuss the management of the patient with other professionals (professionals i.e. , PA, [employer]ER, lab, RT, psych nurse, professor of social work, ophthalmic surgical assistant, teacher, motorized squad commanding officer, spring encaser)? Give summary @ -See above Was critical care preformed (if so, how long)? @ -No Undiagnosed new problem with uncertain prognosis? @ -No Drug Therapy requiring intensive monitoring for toxicity (Heparin, Nitro, Insulin, Cardizem)? @ -No Were any procedures done? @ -No Diagnosis/symptom? Acute, or Chronic, or Acute on Chronic? Uncomplicated (without systemic symptoms) or Complicated (systemic symptoms)? @ -Pyelonephritis Side effects of treatment? @ -No Exacerbation, Progression, or Severe Exacerbation? @ -No Poses a threat to life or bodily function? How? (Chest pain, [place], [place], pneumonia, PE, COPD, DKA, ARF, appy, cholecystitis, CVA, Diverticulitis, Homicidal, Suicidal, threat to staff... and all critical care pts) @ -yes - Lab Data Result diagrams: 09/21/24 13:00 09/21/24 13:00 Lab Results 09/21/24 09/21/24 09/21/24 Range/Units 13:00 13:00 15:50 WBC 1.6 L (3.8-10.6) k/uL RBC 2.15 L (3.80-5.40) m/uL Hgb 7.1 L (11.4-16.0) gm/dL Hct 21.1 L (34.0-46.0) % MCV 98.5 (80.0-100.0) fL MCH 33.0 (25.0-35.0) pg MCHC 33.5 (31.0-37.0) g/dL RDW 15.0 (11.5-15.5) % Plt Count 239 (150-450) k/uL MPV 7.6 Neutrophils % 78 % Lymphocytes % 18 % Monocytes % 0 % Eosinophils % 1 % Basophils % 1 % Neutrophils # 1.3 (1.3-7.7) k/uL Lymphocytes # 0.3 L (1.0-4.8) k/uL Monocytes # 0.0 (0-1.0) k/uL Eosinophils # 0.0 (0-0.7) k/uL Basophils # 0.0 (0-0.2) k/uL Macrocytosis Slight Sodium 133 L (137-145) mmol/L Potassium 4.6 (3.5-5.1) mmol/L Chloride 98 (98-107) mmol/L Carbon Dioxide 28 (22-30) mmol/L Anion Gap 7 mmol/L BUN 33 H (7-17) mg/dL Creatinine 0.86 (0.52-1.04) mg/dL Est GFR (CKD-EPI)AfAm 73 (>60 ml/min/1.73 sqM) Est GFR (CKD-EPI)NonAf 64 (>60 ml/min/1.73 sqM) Glucose 106 H (74-99) mg/dL Calcium 10.4 H (8.4-10.2) mg/dL Total Bilirubin 1.1 (0.2-1.3) mg/dL AST 22 (14-36) U/L ALT 17 (4-34) U/L Alkaline Phosphatase 69 (38-126) U/L Total Protein 6.4 (6.3-8.2) g/dL Albumin 4.2 (3.5-5.0) g/dL Urine Color Yellow Urine Appearance Cloudy H (Clear) Urine pH 5.5 (5.0-8.0) Ur Specific [place] 1.022 (1.001-1.035) Urine Protein 1+ H (Negative) Urine Glucose (UA) Negative (Negative) Urine Ketones Negative (Negative) Urine Blood Negative (Negative) Urine Nitrite Negative (Negative) Urine Bilirubin Negative (Negative) Urine Urobilinogen <2.0 (<2.0) mg/dL Ur Leukocyte Esterase Large H (Negative) Urine RBC 5 (0-5) /hpf Urine WBC >182 H (0-5) /hpf Ur Squamous Epith Cells 3 (0-4) /hpf Urine Bacteria Moderate H (None) /hpf Urine Mucus Moderate H (None) /hpf Disposition Clinical Impression: Pyelonephritis Disposition: ADMITTED IP TO THIS HOSP Condition: Fair Referrals: Nishant Huffman DO [Primary Care Provider] - 1-2 days Decision Time: 17:18
[2024-09-21 13:04] LABS: Basophils % (A) 1 %; Eosinophils % (A) 1 %; HCT 21.1 % (34.0-46.0); HGB 7.1 gm/dL (11.4-16.0); Lymphocytes # (A) 0.3 k/uL (1.0-4.8); Lymphocytes % (A) 18 %; MCHC 33.5 g/dL (31.0-37.0); MCV 98.5 fL (80.0-100.0); Macrocytosis Slight; Mean Platelet Volume 7.6; Monocytes % (A) 0 %; Neutrophils # (A) 1.3 k/uL (1.3-7.7); Neutrophils % (A) 78 %; Platelet Count 239 k/uL (150-450); RBC 2.15 m/uL (3.80-5.40); WBC 1.6 k/uL (3.8-10.6)
[2024-09-21 13:24] LABS: ALT 17 U/L (4-34); AST 22 U/L (14-36); African American GFR (CKD) 73 (>60 ml/min/1.73 sqM); Albumin 4.2 g/dL (3.5-5.0); Alkaline Phosphatase 69 U/L (38-126); Anion Gap 7 mmol/L; Blood Urea Nitrogen 33 mg/dL (7-17); Calcium 10.4 mg/dL (8.4-10.2); Carbon Dioxide 28 mmol/L (22-30); Chloride 98 mmol/L (98-107); Glucose 106 mg/dL (74-99); Non-African American GFR(CKD) 64 (>60 ml/min/1.73 sqM); Potassium 4.6 mmol/L (3.5-5.1); Sodium 133 mmol/L (137-145); Total Bilirubin 1.1 mg/dL (0.2-1.3); Total Protein 6.4 g/dL (6.3-8.2)
--- NOTE | 2024-09-21 13:43 | CT ---
EXAMINATION TYPE: CT abdomen pelvis wo con DATE OF EXAM: 09/21/2024 COMPARISON: 04/26/2024 CLINICAL INDICATION: Female, 84 years old with history of right flank pain; PHH, rt flank pain and lo wer abdominal pain TECHNIQUE: CT scan of the abdomen and pelvis is performed without oral or IV contrast. CT DLP: 342.[address] CTDI: mGy Automated exposure control for dose reduction was used. FINDINGS: Within the limitations of a non-contrast study, the following observations are made. The lungs are clear. Surgical absence of the gallbladder. There is no biliary ductal dilatation. There is no organomegaly of the liver, pancreas, spleen or adrenal glands. There are no renal calcifications or hydronephrosis. 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 There is a 4.2 cm infraren al abdominal aortic aneurysm. There is no retroperitoneal adenopathy or hemorrhage. The bowel loops are normal in caliber is no evidence of obstruction. There are anastomotic sutures in the splenic flexure of the colon and there is marked diverticulosis of the sigmoid colon without CT evidence of acute diverticulitis. There is a small anterolateral hernia containing nondilated nonstrangulated loops of small bowel. No inflammatory changes are identified in the mesentery and there is no free intraperitoneal air or flui d. There is no pelvic mass, free fluid, abscess or adenopathy. The osseous structures and soft tissues are unremarkable. IMPRESSION: 1. Thoracoabdominal and infrarenal abdominal aortic aneurysms. 2. Diverticulosis without CT evidence of diverticulitis 3. Small ventral hernia containing nonstrangulated nonobstructed small bowel loops. 4. No renal calcification or hydronephrosis. 5. No acute changes within the abdomen or pelvis. [facility], , 09/21/2024 1:41 PM
[2024-09-21] MEDS: MORPHINE SULFATE 4 MG/ML SYRINGE IVP STA (16:37)
[2024-09-21 16:53] LABS: Appearance,Urine Cloudy (Clear); Bacteria,Urine Moderate /hpf; Bilirubin,Urine Negative (Negative); Blood,Urine Negative (Negative); Color,Urine Yellow; Glucose,Urine (UA) Negative (Negative); Ketones,Urine Negative (Negative); Leukocyte Esterase,Urine Large (Negative); Mucus,Urine Moderate /hpf; Nitrite,Urine Negative (Negative); PH, Urine 5.5 (5.0-8.0); Protein,Urine 1+ (Negative); RBC,Urine 5 /hpf (0-5); Specific Gravity,Urine 1.022 (1.001-1.035); Squamous Epithelial Cell,Urine 3 /hpf (0-4); Urobilinogen,Urine <2.0 mg/dL (<2.0); WBC,Urine >182 /hpf (0-5)
[2024-09-21] MEDS ORDERED: NALOXONE 0.4 MG/ML 1 ML VIAL IV PRN (17:14)
[2024-09-21] MEDS: cefTRIAXone IN SWFI 1,000 MG/10 ML SYRINGE IVP STA (18:14)
[2024-09-21] MEDS: SODIUM CHLORIDE 0.9% 1,000 ML IV SCH (18:50)
[2024-09-21] MEDS: ACETAMINOPHEN TAB 325 MG TAB PO PRN (18:51)
[2024-09-21] MEDS: ACETAMINOPHEN TAB 500 MG TAB PO SCH (22:31)
[2024-09-21] MEDS: ATORVASTATIN 80 MG TAB PO SCH (22:32)
[2024-09-21] MEDS: PANTOPRAZOLE 40 MG TABLET PO SCH (22:33)
[2024-09-21] MEDS: HYDROcodone/APAP 5-325MG 1 EACH TAB PO PRN (22:37)
[2024-09-22] MEDS: MIDODRINE 5 MG TAB PO PRN (02:35)
[2024-09-22] MEDS: CHOLECALCIFEROL 25 MCG (1000 IU) TABLET PO SCH (08:46)
[2024-09-22] MEDS: ASCORBIC ACID 500 MG TAB PO SCH (08:46)
[2024-09-22] MEDS: ASPIRIN 81 MG PO SCH (08:46)
[2024-09-22] MEDS: CYANOCOBALAMIN 500 MCG TAB PO SCH (08:46)
[2024-09-22] MEDS: FAMOTIDINE 20 MG TAB PO SCH (08:46)
[2024-09-22] MEDS: QUERCETIN 500 MG PO SCH (08:46)
[2024-09-22] MEDS: ZINC SULFATE 220 MG CAP PO SCH (08:46)
[2024-09-22 10:24] LABS: Basophils % (A) 2 %; Eosinophils % (A) 2 %; HCT 21.3 % (34.0-46.0); Hypochromasia Slight; Lymphocytes # (A) 0.3 k/uL (1.0-4.8); Lymphocytes % (A) 19 %; MCH 32.4 pg (25.0-35.0); MCV 101.1 fL (80.0-100.0); Macrocytosis Slight; Mean Platelet Volume 9.3; Monocytes % (A) 1 %; Neutrophils # (A) 1.2 k/uL (1.3-7.7); Neutrophils % (A) 73 %; Platelet Count 216 k/uL (150-450); RBC 2.11 m/uL (3.80-5.40); RDW 14.5 % (11.5-15.5); WBC 1.6 k/uL (3.8-10.6)
[2024-09-22 10:34] LABS: HGB 6.8 gm/dL (11.4-16.0)
[2024-09-22 10:38] LABS: African American GFR (CKD) 86 (>60 ml/min/1.73 sqM); Anion Gap 6 mmol/L; Blood Urea Nitrogen 28 mg/dL (7-17); Carbon Dioxide 28 mmol/L (22-30); Chloride 99 mmol/L (98-107); Glucose 109 mg/dL (74-99); Non-African American GFR(CKD) 75 (>60 ml/min/1.73 sqM); Potassium 4.6 mmol/L (3.5-5.1); Sodium 133 mmol/L (137-145)
[2024-09-22] MEDS: SODIUM CHLORIDE 0.9% 500 ML 500 ML IV ONE (10:51)
[2024-09-22] MEDS: MIDODRINE 5 MG TAB PO SCH (18:01)
--- NOTE | 2024-09-22 18:33 | P.HPIM ---
History of Present Illness H&P Date: 09/22/24 This is an 84 year old female with medical history of atrial fibrillation, coronary artery disease with prior CABG and PCI, AICD, carotid artery disease, COPD, hypertension, hyperlipidemia, lung cancer with chemoradiation, former smoker. Patient is currently undergoing radiation and last received on Wednesday, states she suffered a fall at home. Did not hit her head or loss consciousness. She has not had any fever at home, but does report feeling chilled. She has not been having any shortness of breath or chest pain. Patient came in with complaints of left flank pain to the ER. States this has been going on since Wednesday. On assessment there appears to be a more focal tenderness on area adjacent to the mid lumbar spine. Abdominal pelvis CT reveals thoracoabdominal and infrarenal abdominal aortic aneurysms, diverticulosis without CT evidence of diverticulitis, small ventral hernia containing nonstrangulated nonobstructed small bowel loops, no renal calcification or hydronephrosis, no acute changes within the adbomen or pelvis. Urinalysis was done showing cloudy urine 1+ protein, large leukocyte esterase, >182 white blood cell count moderate bacteria and moderate mucus. white blood cell count 1.6, hgb 7.1, sodium 133, calcium 10.4, BUN 33, creatinine 0.86. Concern for UTI and pyelone and patient was started on IV ceftriaxone in the ER. Urine culture has been taken and currently pending at this time. Patient was started on hydration. Her hemoglobin this AM comes back at 6.8 she is set to receive 1 unit of PRBC. Oncology and infectious disease on consultation. REVIEW OF SYSTEMS: CONSTITUTIONAL: No fever, no malaise, no fatigue. HEENT: No recent visual problems or hearing problems. Denied any sore throat. CARDIOVASCULAR: No chest pain, orthopnea, PND, no palpitations, no syncope. PULMONARY: No shortness of breath, no cough, no hemoptysis. GASTROINTESTINAL: No diarrhea, no nausea, no vomiting, no abdominal pain. NEUROLOGICAL: No headaches, no weakness, no numbness. HEMATOLOGICAL: Denies any bleeding or petechiae. GENITOURINARY: Denies any burning micturition, frequency, or urgency. MUSCULOSKELETAL/RHEUMATOLOGICAL: Denies any joint pain, swelling, or any muscle pain. ENDOCRINE: Denies any polyuria or polydipsia. The rest of the 14-point review of systems is negative. PHYSICAL EXAMINATION: GENERAL: The patient is alert and oriented x3, not in any acute distress. Well developed, well nourished. HEENT: Pupils are round and equally reacting to light. EOMI. No scleral icterus. No conjunctival pallor. Normocephalic, atraumatic. No pharyngeal erythema. No thyromegaly. CARDIOVASCULAR: S1 and S2 present. No murmurs, rubs, or gallops. PULMONARY: Chest is clear to auscultation, no wheezing or crackles. ABDOMEN: Soft, nontender, nondistended, normoactive bowel sounds. No palpable organomegaly. MUSCULOSKELETAL: No joint swelling or deformity. EXTREMITIES: No cyanosis, clubbing, or pedal edema. NEUROLOGICAL: Gross neurological examination did not reveal any focal deficits. SKIN: No rashes. Assessment and plan Fall with lower back pain with focal tenderness adjacent to the mid lumbar spine Abnormal urine concern for acute UTI as patient is immunocompromised we will treat with IV ceftriaxone and will await urine culture Hypovolemic hyponatremia History of lung cancer Hypertension Hyperlipidemia Degenerative disc disease Coronary artery disease with prior CABG and PCI History of aortic stenosis status post TAVR COPD Chronic anemia Chronic congestive heart failure systolic dysfunction with a EF of 40 to 45% History of AICD implantation/ischemic cardiomyopathy Thoracoabdominal and infrarenal abdominal aortic aneurysms follows with Dr. Tammy castro on an outpatient basis GI prophylaxis Full Code Pending oncological consultation Pending lumbar xray Continue IV ceftriaxone and pending urine culture Clinically less likely pyelonephritis however will continue antibiotics for now Continue normal saline and 500 cc fluid bolus was given Cautious hydration as patient does have CHF history 1 unit of PRBC given today Repeat labs in the AM PT/OT consultation The impression and plan of care has been dictated by Nurse Regina Pr actitioner as directed. Dr. Jacobo MD I have performed a history and physical examination and medical decision making of this patient, discussed the same with the dictator, and agree with the dicta tors assessment and plan as written, documented as a scribe. Based on total visit time, I have performed more than 50% of this visit. Past Medical History Past Medical History: Atrial Fibrillation, Coronary Artery Disease (CAD), Cancer, COPD, CVA/TIA, GERD/Reflux, GI Bleed, Hyperlipidemia, Hypertension, Myocardial Infarction ([place]), Osteoarthritis (OA), Vascular Disorder Additional Past Medical History / Comment(s): left lung CA, 07/2024 with chemo and radiation. 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, 02/2020 TIA, TIA 10/2022, carotid stenosis with L carotid endartectomy, pt states she has had irregular heart beat in past but cannot recall type, aortic stenosis/regurgitation, vertigo, balance issues-uses walker, back pain/disc problems, benign colon polyp,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 Last Myocardial Infarction Date:: 2000 History of Any Multi-Drug Resistant Organisms: None Reported Past Surgical History: AICD, Appendectomy, Bowel Resection, Cholecystectomy, Coronary Bypass/CABG, Heart Catheterization With Stent, Hernia Repair, Orthopedic Surgery Additional Past Surgical History / Comment(s): Arch studies, 2000 PCI with stents, 2002 CABG-3 vessel, 2002 AICD, AICD gen changes, DFTs, 2002 L carotid endartectomy, bowel resection for benign flat polyp, abdominal hernia repair, L hip fracture with surgery, L arm benign lesion removed, colonoscopies/polyps, ALEXIS Past Anesthesia/Blood Transfusion Reactions: No Reported Reaction, Motion Sickness Additional Past Anesthesia/Blood Transfusion Reaction / Comment(s): woke up during battery replacement in defibrillator Date of Last Stent Placement:: 2000 Type of Cardiac Device: AICD Device Placement Date:: 2002- [employer] Past Psychological History: Anxiety Additional Psychological History / Comment(s): She uses a walker. She no longer drives, her granddaughter drives her. Smoking Status: Former smoker Past Alcohol Use History: None Reported Additional Past Alcohol Use History / Comment(s): Pt started smoking in 1969 and was a ppd smoker then cut down to 5 cigarettes a day and recently quit on 10/02/21. States she smoked 60 years Past Drug Use History: None Reported Additional Drug Use History / Comment(s): . - Past Family History Sister(s) Family Medical History: Cancer Additional Family Medical History / Comment(s): Sister had breast/bladder cancers. Son(s) Family Medical History: Cancer Additional Family Medical History / Comment(s): pancreatic cancer Father Family Medical History: Cancer Additional Family Medical History / Comment(s): Bowel cancer. Mother Family Medical History: Cancer Additional Family Medical History / Comment(s): Mother had bowel cancer twice and 2nd time metastasized to her kidney. Medications and Allergies Home Medications Medication Instructions Recorded Confirmed Type Atorvastatin [Lipitor] 80 mg PO HS 01/03/16 09/21/24 History Aspirin 81 mg PO DAILY 30 Days #30 tab 06/24/23 09/21/24 Rx Ascorbic Acid [Vitamin C] 1,000 mg PO DAILY 04/26/24 09/21/24 History Cholecalciferol [Vitamin D3 (25 25 mcg PO DAILY 04/26/24 09/21/24 History Mcg = 1000 Iu)] Cyanocobalamin [Vitamin B-12] 500 mcg PO DAILY 04/26/24 09/21/24 History Famotidine/Ca Carb/Mag Hydrox 1 tab PO DAILY 04/26/24 09/21/24 History [Pepcid Complete Tablet Chew] Psyllium Husk [Fiber Capsule] 0.4 gm PO DAILY 04/26/24 09/21/24 History Quercetin 500 mg PO DAILY 04/26/24 09/21/24 History Zinc Sulfate [Orazinc] 25 mg PO DAILY 04/26/24 09/21/24 History Acetaminophen Tab [Tylenol Tab] 1,500 mg PO HS 09/21/24 09/21/24 History HYDROcodone/APAP 5-325MG [[place] 1 tab PO DAILY PRN 09/21/24 09/21/24 History 5-325] Ketorolac [Toradol] 10 mg PO DIRECTED PRN 09/21/24 09/21/24 History Omeprazole [PriLOSEC] 20 mg PO BID 09/21/24 09/21/24 History Allergies Allergy/AdvReac Type Severity Reaction Status Date / Time lacosamide [From Vimpat] AdvReac AMS Verified 09/21/24 15:43 levetiracetam [From Keppra] AdvReac AMS Verified 09/21/24 15:43 Physical Exam Vitals: Vital Signs Temp Pulse Pulse Resp BP BP Pulse Ox 09/22/24 07:09 98 F 80 18 81/41 92 L 09/22/24 01:29 97.5 F L 81 16 79/47 96 09/21/24 20:42 16 09/21/24 20:00 81 16 09/21/24 19:23 98.3 F 83 16 89/54 98 09/21/24 18:38 97.9 F 71 18 101/57 97 09/21/24 17:37 75 16 96 09/21/24 17:30 99/60 09/21/24 17:00 103/69 09/21/24 16:38 78 18 100/55 96 09/21/24 15:48 77 18 99/44 Intake and Output 09/21/24 09/22/24 09/22/24 22:59 06:59 14:59 Other: Voiding Method Toilet # Voids 1 1 Weight 65.771 kg Results CBC & Chem 7: 09/22/24 10:09 09/22/24 10:09 Labs: Abnormal Lab Results - Last 24 Hours (Table) 09/21/24 09/21/24 09/21/24 Range/Units 13:00 13:00 15:50 WBC 1.6 L (3.8-10.6) k/uL RBC 2.15 L (3.80-5.40) m/uL Hgb 7.1 L (11.4-16.0) gm/dL Hct 21.1 L (34.0-46.0) % MCV (80.0-100.0) fL Neutrophils # (1.3-7.7) k/uL Lymphocytes # 0.3 L (1.0-4.8) k/uL Sodium 133 L (137-145) mmol/L BUN 33 H (7-17) mg/dL Glucose 106 H (74-99) mg/dL Calcium 10.4 H (8.4-10.2) mg/dL Urine Appearance Cloudy H (Clear) Urine Protein 1+ H (Negative) Ur Leukocyte Esterase Large H (Negative) Urine WBC >182 H (0-5) /hpf Urine Bacteria Moderate H (None) /hpf Urine Mucus Moderate H (None) /hpf Crossmatch 09/22/24 09/22/24 09/22/24 Range/Units 10:09 10:09 11:10 WBC 1.6 L (3.8-10.6) k/uL RBC 2.11 L (3.80-5.40) m/uL Hgb 6.8 L* (11.4-16.0) gm/dL Hct 21.3 L (34.0-46.0) % MCV 101.1 H (80.0-100.0) fL Neutrophils # 1.2 L (1.3-7.7) k/uL Lymphocytes # 0.3 L (1.0-4.8) k/uL Sodium 133 L (137-145) mmol/L BUN 28 H (7-17) mg/dL Glucose 109 H (74-99) mg/dL Calcium (8.4-10.2) mg/dL Urine Appearance (Clear) Urine Protein (Negative) Ur Leukocyte Esterase (Negative) Urine WBC (0-5) /hpf Urine Bacteria (None) /hpf Urine Mucus (None) /hpf Crossmatch See Detail Thrombosis Risk Factor Assmnt - Choose All That Apply Each Risk Factor Represents 3 Points: Age 75 years or older Thrombosis Risk Factor Assessment Total Risk Factor Score: 3 Thrombosis Risk Factor Assessment Level: Moderate Risk Assessment and Plan Time with Patient: Greater than 30
--- NOTE | 2024-09-22 18:34 | XR ---
EXAMINATION TYPE: XR lumbar spine 2 or 3V DATE OF EXAM: 09/22/2024 6:23 PM COMPARISON: 12/16/2015 CLINICAL INDICATION: Female, 84 years old with history of fall and right lower back pain, TECHNIQUE: 3 views of the lumbar spine are submitted. FINDINGS: There are 5 lumbar type vertebral bodies identified. The lumbar spine shows satisfactory alignment without evidence of acute fracture or dislocation. Vertebral body heights are within normal limits. Fusion noted at L4-5. Severe degenerative change L5-S1. Overall stable appearance. The overl aye soft tissue appears unremarkable. IMPRESSION: No acute fracture or dislocation is seen in the lumbar spine.ICD 10 NO FRACTURE, INITIAL EVALUATION [facility], , 09/22/2024 6:31 PM
--- NOTE | 2024-09-22 20:01 | P.CONS ---
History of Present Illness - Reason for Consult Consult date: 09/22/24 lung cancer, anemia Requesting physician: Sabi Landrum - Chief Complaint flank pain - History of Present Illness Ms. Purvis is a pleasant 84-year-old woman with a past medical history significant for coronary artery disease status post CABG complicated by ischemic car diomyopathy status post AICD CAD placement as well as TAVR procedure for severe aortic stenosis in December 2021 and prior history of CVA requiring left carotid endarterectomy who presents for diagnosis of small cell carcinoma of the lung. She had been undergoing annual CT scans to monitor thoracic aortic aneurysm with a CT of the chest on 05/17/2024 revealing new left lower lobe mass measuring 3.2 x 2.2 cm in size. PET/CT on 06/09/2024 noted FDG avid left lower lung nodule measuring 3.6 x 2.7 cm with an SUV of 14.5 along with a left hilar lymph node with an SUV of 8.5. There was no evidence of suspicious FDG avidity elsewhere. She underwent bronchoscopy with biopsy of the left lower lobe mass and left hilar lymph node on 06/29/2024 that was consistent with small cell carcinoma with IHC positive for CD56 and synaptophysin and Ki-67 being greater than 50%. Repeat staging imaging on 08/10/2024 noted no intracranial metastasis and stable left lower lobe lesion and slightly enlarged left hilar lymphadenopathy. She initiated concurrent chemoradiotherapy with oral etoposide 100 mg daily on days 1 through 21 on 08/02/2024 and initiated radiation therapy on 08/25/2024. Plan to obtain repeat staging imaging after completion of concurrent chemoradiotherapy to assess treatment response. And as long as there is no evidence of disease progression on that imaging, she would proceed to monthly durvalumab for 2 years per the ADRIATIC trial Patient presented the emergency room for right sided low back pain. Upon admit CT abdomen pelvis without contrast showed no acute changes with the abdomen and pelvis. UA suspicious for UTI, Rocephin has been started. Urine culture pending. Patient does report she had a mechanical fall on Wednesday falling into her bed but denies injury. States she was at having right lower back pain as well as nausea and dysuria and decreased appetite. Denies vomiting fever and chills. Also reports dysphagia, patient has had noted radiation esophagitis. Labs reviewed, WBC 1.6, ANC 1.2, hemoglobin 6.8, platelets 216,000. 1 unit PRBCs have been ordered. Creatinine 0.75, GFR 75, BUN 28. ID has been consulted for concern for pyelonephritis. Pt afebrile, hypotension noted. Review of Systems 10 point ROS is negative except as stated in the HPI Past Medical History Past Medical History: Atrial Fibrillation, Coronary Artery Disease (CAD), Cancer, COPD, CVA/TIA, GERD/Reflux, GI Bleed, Hyperlipidemia, Hypertension, Myocardial Infarction ([place]), Osteoarthritis (OA), Vascular Disorder Additional Past Medical History / Comment(s): left lung CA, 07/2024 with chemo and radiation. 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, 02/2020 TIA, TIA 10/2022, carotid stenosis with L carotid endartectomy, pt states she has had irregular heart beat in past but cannot recall type, aortic stenosis/regurgitation, vertigo, balance issues-uses walker, back pain/disc problems, benign colon polyp,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 Last Myocardial Infarction Date:: 2000 History of Any Multi-Drug Resistant Organisms: None Reported Past Surgical History: AICD, Appendectomy, Bowel Resection, Cholecystectomy, Coronary Bypass/CABG, Heart Catheterization With Stent, Hernia Repair, Orthopedic Surgery Additional Past Surgical History / Comment(s): Arch studies, 2000 PCI with stents, 2002 CABG-3 vessel, 2002 AICD, AICD gen changes, DFTs, 2002 L carotid en dartectomy, bowel resection for benign flat polyp, abdominal hernia repair, L hip fracture with surgery, L arm benign lesion removed, colonoscopies/polyps, ALEXIS Past Anesthesia/Blood Transfusion Reactions: No Reported Reaction, Motion Sickness Additional Past Anesthesia/Blood Transfusion Reaction / Comm: woke up during battery replacement in defibrillator Date of Last Stent Placement:: 2000 Type of Cardiac Device: AICD Device Placement Date:: 2002- [employer] Past Psychological History: Anxiety Additional Psychological History / Comment(s): She uses a walker. She no longer drives, her granddaughter drives her. Smoking Status: Former smoker Past Alcohol Use History: None Reported Additional Past Alcohol Use History / Comment(s): Pt started smoking in 1969 and was a ppd smoker then cut down to 5 cigarettes a day and recently quit on 10/02/21. States she smoked 60 years Past Drug Use History: None Reported Additional Drug Use History / Comment(s): . - Past Family History Sister(s) Family Medical History: Cancer Additional Family Medical History / Comment(s): Sister had breast/bladder cancers. Son(s) Family Medical History: Cancer Additional Family Medical History / Comment(s): pancreatic cancer Father Family Medical History: Cancer Additional Family Medical History / Comment(s): Bowel cancer. Mother Family Medical History: Cancer Additional Family Medical History / Comment(s): Mother had bowel cancer twice and 2nd time metastasized to her kidney. Medications and Allergies Home Medications Medication Instructions Recorded Confirmed Type Atorvastatin [Lipitor] 80 mg PO HS 01/03/16 09/21/24 History Aspirin 81 mg PO DAILY 30 Days #30 tab 06/24/23 09/21/24 Rx Ascorbic Acid [Vitamin C] 1,000 mg PO DAILY 04/26/24 09/21/24 History Cholecalciferol [Vitamin D3 (25 25 mcg PO DAILY 04/26/24 09/21/24 History Mcg = 1000 Iu)] Cyanocobalamin [Vitamin B-12] 500 mcg PO DAILY 04/26/24 09/21/24 History Famotidine/Ca Carb/Mag Hydrox 1 tab PO DAILY 04/26/24 09/21/24 History [Pepcid Complete Tablet Chew] Psyllium Husk [Fiber Capsule] 0.4 gm PO DAILY 04/26/24 09/21/24 History Quercetin 500 mg PO DAILY 04/26/24 09/21/24 History Zinc Sulfate [Orazinc] 25 mg PO DAILY 04/26/24 09/21/24 History Acetaminophen Tab [Tylenol Tab] 1,500 mg PO HS 09/21/24 09/21/24 History HYDROcodone/APAP 5-325MG [[place] 1 tab PO DAILY PRN 09/21/24 09/21/24 History 5-325] Ketorolac [Toradol] 10 mg PO DIRECTED PRN 09/21/24 09/21/24 History Omeprazole [PriLOSEC] 20 mg PO BID 09/21/24 09/21/24 History Allergies Allergy/AdvReac Type Severity Reaction Status Date / Time lacosamide [From Vimpat] AdvReac AMS Verified 09/21/24 15:43 levetiracetam [From Keppra] AdvReac AMS Verified 09/21/24 15:43 Physical Exam Vitals: Vital Signs Temp Pulse Pulse Resp BP BP Pulse Ox 09/22/24 07:09 98 F 80 18 81/41 92 L 09/22/24 01:29 97.5 F L 81 16 79/47 96 09/21/24 20:42 16 09/21/24 20:00 81 16 09/21/24 19:23 98.3 F 83 16 89/54 98 09/21/24 18:38 97.9 F 71 18 101/57 97 09/21/24 17:37 75 16 96 09/21/24 17:30 99/60 09/21/24 17:00 103/69 09/21/24 16:38 78 18 100/55 96 09/21/24 15:48 77 18 99/44 09/21/24 11:51 98.2 F 73 16 97/69 99 Intake and Output 09/21/24 09/22/24 09/22/24 22:59 06:59 14:59 Other: Voiding Method Toilet # Voids 1 1 Weight 65.771 kg - Constitutional General appearance: average body habitus, no acute distress - Neck left cervical LAD - Respiratory Respiratory: bilateral: CTA - Cardiovascular Rhythm: regular - Gastrointestinal No CVA tenderness General gastrointestinal: soft - Integumentary Integumentary: no cyanotic, no jaundiced - Musculoskeletal point tenderness to right lower back at L5-S1 - Psychiatric Psychiatric: A&O x's 3 Results CBC & Chem 7: 09/22/24 10:09 09/22/24 10:09 Labs: Abnormal Lab Results - Last 24 Hours (Table) 09/21/24 09/21/24 09/21/24 Range/Units 13:00 13:00 15:50 WBC 1.6 L (3.8-10.6) k/uL RBC 2.15 L (3.80-5.40) m/uL Hgb 7.1 L (11.4-16.0) gm/dL Hct 21.1 L (34.0-46.0) % MCV (80.0-100.0) fL Neutrophils # (1.3-7.7) k/uL Lymphocytes # 0.3 L (1.0-4.8) k/uL Sodium 133 L (137-145) mmol/L BUN 33 H (7-17) mg/dL Glucose 106 H (74-99) mg/dL Calcium 10.4 H (8.4-10.2) mg/dL Urine Appearance Cloudy H (Clear) Urine Protein 1+ H (Negative) Ur Leukocyte Esterase Large H (Negative) Urine WBC >182 H (0-5) /hpf Urine Bacteria Moderate H (None) /hpf Urine Mucus Moderate H (None) /hpf 09/22/24 09/22/24 Range/Units 10:09 10:09 WBC 1.6 L (3.8-10.6) k/uL RBC 2.11 L (3.80-5.40) m/uL Hgb 6.8 L* (11.4-16.0) gm/dL Hct 21.3 L (34.0-46.0) % MCV 101.1 H (80.0-100.0) fL Neutrophils # 1.2 L (1.3-7.7) k/uL Lymphocytes # 0.3 L (1.0-4.8) k/uL Sodium 133 L (137-145) mmol/L BUN 28 H (7-17) mg/dL Glucose 109 H (74-99) mg/dL Calcium (8.4-10.2) mg/dL Urine Appearance (Clear) Urine Protein (Negative) Ur Leukocyte Esterase (Negative) Urine WBC (0-5) /hpf Urine Bacteria (None) /hpf Urine Mucus (None) /hpf CT scan - abdomen: report reviewed CT scan - pelvis: report reviewed Assessment and Plan (1) Pyelonephritis Current Visit: Yes Status: Acute Code(s): N12 - TUBULO-INTERSTITIAL NEPHRITIS, NOT SPCF ACUTE OR CHRONIC SNOMED Code(s): 55147314 (2) Small cell lung cancer Current Visit: Yes Status: Acute Code(s): C34.90 - MALIGNANT NEOPLASM OF UNSP PART OF UNSP BRONCHUS OR LUNG SNOMED Code(s): 572430445 (3) UTI (urinary tract infection) Current Visit: Yes Status: Acute Code(s): N39.0 - URINARY TRACT INFECTION, SITE NOT SPECIFIED SNOMED Code(s): 75896123 Plan: UTI, pyleonephritis: Presented with right sided low back pain, dysuria, nausea and decreased apetite. Also reports mechanical fall into bed Wednesday, but denies injury - Upon admit CT abdomen pelvis without contrast showed no acute changes with the abdomen and pelvis, no abnormalities to noted osseous structures. -UA suspicious for UTI, Rocephin has been started. Urine culture pending. Blood cultures ordered -ID following Dysphagia: -Likely r/t radiation esophagitis. -Diet changed to full liquid Small cell lung cancer: -Oncology history as dicatted in the HPI -She initiated concurrent chemoradiotherapy with oral etoposide 100 mg daily on days 1 through 21 on 08/02/2024 and initiated radiation therapy on 08/25/2024. -Last dose etoposide yesterday. Hold chemo until pt acutely recovers -WBC 1.6, ANC 1.2, hemoglobin 6.8, platelets 216,000. 1 unit PRBCs have been ordered. -Continue to closely monitor CBC attests: I have seen and examined pt, performed H&P, developed impression and plan of care. Discussed with dictator. Agree with documentation, dictated as a scribe.
--- NOTE | 2024-09-22 22:10 | P.CONS ---
History of Present Illness - Reason for Consult Consult date: 09/22/24 [place] Requesting physician: Waldo Howard - Chief Complaint Right flank pain x days - History of Present Illness Patient is a 84-year-old female with a past medical history significant for coronary artery disease atrial fibrillation reflux hypertension hyperlipidemia metastatic cancer of the lung with the patient is currently on chemoradiation therapy patient present to the hospital concerning for right- sided flank pain that apparently has been getting worse over the last 1 week patient mention she was she was unable to lie down for her radiation therapy, describing the pain to be mostly sharp moderate intensity without any radiation, did have some burning of urine but no hematuria or suprapubic pain nausea but no vomiting no chest pain no shortness of occasional cough 47 the patient has been evaluated on presentation to the hospital patient was afebrile no fever have been recorded subsequently patient was not tachycardic mildly hypertensive but not hypoxic she did have white count of 1.6 creatinine 0.86 urine has been positive did have abdominal pelvis CT with evidence of abdominal aortic aneurysm diverticulosis without diverticulitis no renal calcification or hydronephrosis patient has been treated with ceftriaxone infectious disease was consulted for further management of antibiotic therapy Review of Systems Positive point and negatives has been mentioned in the HPI, complete review of systems was performed and all other systems are negative Past Medical History Past Medical History: Atrial Fibrillation, Coronary Artery Disease (CAD), Cancer, COPD, CVA/TIA, GERD/Reflux, GI Bleed, Hyperlipidemia, Hypertension, Myocardial Infarction ([place]), Osteoarthritis ([place]), Vascular Disorder Additional Past Medical History / Comment(s): left lung CA, 07/2024 with chemo and radiation. 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, 02/2020 TIA, TIA 10/2022, carotid stenosis with L carotid endartectomy, pt states she has had irregular heart beat in past but cannot recall type, aortic stenosis/regurgitation, vertigo, balance issues-uses walker, back pain/disc problems, benign colon polyp,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 Last Myocardial Infarction Date:: 2000 History of Any Multi-Drug Resistant Organisms: None Reported Past Surgical History: AICD, Appendectomy, Bowel Resection, Cholecystectomy, Coronary Bypass/CABG, Heart Catheterization With Stent, Hernia Repair, Orthopedic Surgery Additional Past Surgical History / Comment(s): Arch studies, 2000 PCI with stents, 2002 CABG-3 vessel, 2002 AICD, AICD gen changes, DFTs, 2002 L carotid endartectomy, bowel resection for benign flat polyp, abdominal hernia repair, L hip fracture with surgery, L arm benign lesion removed, colonoscopies/polyps, ALEXIS Past Anesthesia/Blood Transfusion Reactions: No Reported Reaction, Motion Sickness Additional Past Anesthesia/Blood Transfusion Reaction / Comm: woke up during battery replacement in defibrillator Date of Last Stent Placement:: 2000 Type of Cardiac Device: AICD Device Placement Date:: 2002- [employer] Past Psychological History: Anxiety Additional Psychological History / Comment(s): She uses a walker. She no longer drives, her granddaughter drives her. Smoking Status: Former smoker Past Alcohol Use History: None Reported Additional Past Alcohol Use History / Comment(s): Pt started smoking in 1969 and was a ppd smoker then cut down to 5 cigarettes a day and recently quit on 10/02/21. States she smoked 60 years Past Drug Use History: None Reported Additional Drug Use History / Comment(s): . - Past Family History Sister(s) Family Medical History: Cancer Additional Family Medical History / Comment(s): Sister had breast/bladder cancers. Son(s) Family Medical History: Cancer Additional Family Medical History / Comment(s): pancreatic cancer Father Family Medical History: Cancer Additional Family Medical History / Comment(s): Bowel cancer. Mother Family Medical History: Cancer Additional Family Medical History / Comment(s): Mother had bowel cancer twice and 2nd time metastasized to her kidney. Medications and Allergies Home Medications Medication Instructions Recorded Confirmed Type Atorvastatin [Lipitor] 80 mg PO HS 01/03/16 09/21/24 History Aspirin 81 mg PO DAILY 30 Days #30 tab 06/24/23 09/21/24 Rx Ascorbic Acid [Vitamin C] 1,000 mg PO DAILY 04/26/24 09/21/24 History Cholecalciferol [Vitamin D3 (25 25 mcg PO DAILY 04/26/24 09/21/24 History Mcg = 1000 Iu)] Cyanocobalamin [Vitamin B-12] 500 mcg PO DAILY 04/26/24 09/21/24 History Famotidine/Ca Carb/Mag Hydrox 1 tab PO DAILY 04/26/24 09/21/24 History [Pepcid Complete Tablet Chew] Psyllium Husk [Fiber Capsule] 0.4 gm PO DAILY 04/26/24 09/21/24 History Quercetin 500 mg PO DAILY 04/26/24 09/21/24 History Zinc Sulfate [Orazinc] 25 mg PO DAILY 04/26/24 09/21/24 History Acetaminophen Tab [Tylenol Tab] 1,500 mg PO HS 09/21/24 09/21/24 History HYDROcodone/APAP 5-325MG [[place] 1 tab PO DAILY PRN 09/21/24 09/21/24 History 5-325] Ketorolac [Toradol] 10 mg PO DIRECTED PRN 09/21/24 09/21/24 History Omeprazole [PriLOSEC] 20 mg PO BID 09/21/24 09/21/24 History Allergies Allergy/AdvReac Type Severity Reaction Status Date / Time lacosamide [From Vimpat] AdvReac AMS Verified 09/21/24 15:43 levetiracetam [From Keppra] AdvReac AMS Verified 09/21/24 15:43 Physical Exam Vitals: Vital Signs Temp Pulse Pulse Resp BP BP Pulse Ox 09/22/24 07:09 98 F 80 18 81/41 92 L 09/22/24 01:29 97.5 F L 81 16 79/47 96 09/21/24 20:42 16 09/21/24 20:00 81 16 09/21/24 19:23 98.3 F 83 16 89/54 98 09/21/24 18:38 97.9 F 71 18 101/57 97 09/21/24 17:37 75 16 96 09/21/24 17:30 99/60 09/21/24 17:00 103/69 09/21/24 16:38 78 18 100/55 96 09/21/24 15:48 77 18 99/44 09/21/24 11:51 98.2 F 73 16 97/69 99 Intake and Output 09/21/24 09/22/24 09/22/24 22:59 06:59 14:59 Other: Voiding Method Toilet # Voids 1 1 Weight 65.771 kg GENERAL DESCRIPTION: Elderly male lying in bed, no distress. No tachypnea or accessory muscle of respiration use. HEENT: Shows Pallor , no scleral icterus. Oral mucous membrane is dry. No thrush NECK: Trachea central, no thyromegaly. LUNGS: Unlabored breathing. Clear to auscultation anteriorly. No wheeze or crackle. HEART: S1, S2, regular rate and rhythm. No loud murmur ABDOMEN: Soft, mild right flank tenderness EXTREMITIES: No edema of feet. SKIN: No rash, no masses palpable. NEUROLOGICAL: The patient is awake, alert, oriented x3, mood and affect normal. Results CBC & Chem 7: 09/23/24 03:34 09/22/24 10:09 Labs: Abnormal Lab Results - Last 24 Hours (Table) 09/21/24 09/21/24 09/21/24 Range/Units 13:00 13:00 15:50 WBC 1.6 L (3.8-10.6) k/uL RBC 2.15 L (3.80-5.40) m/uL Hgb 7.1 L (11.4-16.0) gm/dL Hct 21.1 L (34.0-46.0) % MCV (80.0-100.0) fL Neutrophils # (1.3-7.7) k/uL Lymphocytes # 0.3 L (1.0-4.8) k/uL Sodium 133 L (137-145) mmol/L BUN 33 H (7-17) mg/dL Glucose 106 H (74-99) mg/dL Calcium 10.4 H (8.4-10.2) mg/dL Urine Appearance Cloudy H (Clear) Urine Protein 1+ H (Negative) Ur Leukocyte Esterase Large H (Negative) Urine WBC >182 H (0-5) /hpf Urine Bacteria Moderate H (None) /hpf Urine Mucus Moderate H (None) /hpf 09/22/24 09/22/24 Range/Units 10:09 10:09 WBC 1.6 L (3.8-10.6) k/uL RBC 2.11 L (3.80-5.40) m/uL Hgb 6.8 L* (11.4-16.0) gm/dL Hct 21.3 L (34.0-46.0) % MCV 101.1 H (80.0-100.0) fL Neutrophils # 1.2 L (1.3-7.7) k/uL Lymphocytes # 0.3 L (1.0-4.8) k/uL Sodium 133 L (137-145) mmol/L BUN 28 H (7-17) mg/dL Glucose 109 H (74-99) mg/dL Calcium (8.4-10.2) mg/dL Urine Appearance (Clear) Urine Protein (Negative) Ur Leukocyte Esterase (Negative) Urine WBC (0-5) /hpf Urine Bacteria (None) /hpf Urine Mucus (None) /hpf Assessment and Plan (1) Pyelonephritis Current Visit: Yes Status: Acute Code(s): N12 - TUBULO-INTERSTITIAL NEPHRITIS, NOT SPCF ACUTE OR CHRONIC SNOMED Code(s): 34175408 (2) UTI (urinary tract infection) Current Visit: Yes Status: Acute Code(s): N39.0 - URINARY TRACT INFECTION, SITE NOT SPECIFIED SNOMED Code(s): 65330384 Plan: 1patient presented to the hospital right flank pain did have urinary symptoms positive UA leukopenia clinically suspicious for right-sided pyelonephritis, fro m enteric gram-negative pathogen 2-antibiotics adjusted to Rocephin 2 g daily while waiting for the culture to finalize Question concern answered We will follow on clinical condition and cultures to further adjust medication if needed Thank you for this consultation we will follow the patient along with you Dictation was produced using [employer] dictation software. please excuse any grammatical, word or spelling errors. Time with Patient: Greater than 30
[2024-09-23] MEDS ORDERED: HYDROmorphone 0.5 MG/0.5 ML SYRINGE IVP PRN (12:30)
[2024-09-23 12:33] LABS: HCT 20.8 % (37.2-46.3); MCH 32.7 pg (27.0-32.0); MCHC 32.2 g/dL (32.0-37.0); MCV 101.5 FL (80.0-97.0); Mean Platelet Volume 10.3 FL (9.5-12.2); NRBC Per 100 WBC 0 X 10*3/uL (0.00-0.01); Platelet Count 149 X 10*3/uL (140-440); RBC 2.05 X 10*6/uL (4.10-5.20); RDW 14.5 % (11.5-14.5)
[2024-09-23 12:50] LABS: HGB 6.7 g/dL (12.0-15.0); WBC 1.38 X 10*3/uL (4.50-10.00)
[2024-09-23 12:51] LABS: Basophils # (A) 0.04 X 10*3/uL (0.00-0.10); Basophils % (A) 2.9 %; Eosinophils # (A) 0.04 X 10*3/uL (0.04-0.35); Eosinophils % (A) 2.9 %; Monocytes # (A) 0.02 X 10*3/uL (0.20-1.00); Monocytes % (A) 1.4 %; Neutrophils # (A) 0.87 X 10*3/uL (1.80-7.70); Neutrophils % (A) 63.1 %
[2024-09-23] MEDS: HYDROcodone/APAP 5-325MG 1 EACH TAB PO PRN (12:54)
--- NOTE | 2024-09-23 13:57 | P.PN ---
Subjective Progress Note Date: 09/23/24 Principal diagnosis: Reason for follow-up is UTI/pyelonephritis Patient is a 84-year-old female with a past medical history significant for coronary artery disease atrial fibrillation reflux hypertension hyperlipidemia metastatic cancer of the lung with the patient is currently on chemoradiation therapy patient present to the hospital concerning for right- sided flank pain patient did have a positive UA leukopenia concerning for possible pyelonephritis. On today's evaluation that is 09/23/2024, patient did not have any fever and denies any chills, patient is breathing comfortably on room air, patient with no chest pain or cough patient did not have any abdominal pain nausea vomiting or any loose stools abdominal pain to the right flank upper hip area some impr ovement with stretching her leg. The patient white count is 1.38 hemoglobin is 6.7 x-ray of the lumbar spine did not show any abnormality CT abdominal pelvis did not mention any abnormality to the rectum peritoneal area Objective - Vital Signs Vital signs: Vital Signs Temp 98.2 F 09/23/24 07:44 Pulse 77 09/23/24 07:44 Resp 16 09/23/24 01:21 BP 99/51 09/23/24 07:44 Pulse Ox 96 09/23/24 07:44 FiO2 Intake & Output 09/22/24 09/23/24 09/23/24 18:59 06:59 18:59 Intake Total 310 1240 Balance 310 1240 Intake: Intake, IV Titration 650 Amount Sodium Chloride 0.9% 1, 600 000 ml @ 75 mls/hr IV . [id number] [facility] Rx#:[id number] cefTRIAXone 2 gm In 50 Sodium Chloride 0.9% 50 ml @ 100 mls/hr IVPB Q24HR [facility] Rx#:[id number] Oral 590 Blood Product 310 Rc As-1 Unit 310 [id number] Other: Voiding Method Toilet # Voids 2 - Exam GENERAL DESCRIPTION: An elderly female lying in bed in no distress RESPIRATORY SYSTEM: Unlabored breathing , decreased breath sounds at bases HEART: S1 S2 regular rate and rhythm , ABDOMEN: Soft , no tenderness EXTREMITIES: No edema feet - Labs CBC & Chem 7: 09/23/24 03:34 09/22/24 10:09 Labs: Abnormal Lab Results - Last 24 Hours (Table) 09/22/24 09/23/24 Range/Units 11:10 03:34 WBC 1.38 A* (4.50-10.00) X 10*3/uL RBC 2.05 L (4.10-5.20) X 10*6/uL Hgb 6.7 A* (12.0-15.0) g/dL Hct 20.8 L (37.2-46.3) % MCV 101.5 H (80.0-97.0) FL MCH 32.7 H (27.0-32.0) pg Neutrophils # 0.87 L (1.80-7.70) X 10*3/uL Lymphocytes # 0.40 L (0.90-5.00) X 10*3/uL Monocytes # 0.02 L (0.20-1.00) X 10*3/uL Crossmatch See Detail Microbiology - Last 24 Hours (Table) 09/21/24 15:50 Urine Culture - Preliminary Urine,Voided Gram Neg Bacilli Assessment and Plan (1) Pyelonephritis Current Visit: Yes Status: Acute Code(s): N12 - TUBULO-INTERSTITIAL NEPHRITIS, NOT SPCF ACUTE OR CHRONIC SNOMED Code(s): 89974524 (2) UTI (urinary tract infection) Current Visit: Yes Status: Acute Code(s): N39.0 - URINARY TRACT INFECTION, SITE NOT SPECIFIED SNOMED Code(s): 46081231 Plan: 1patient presented to the hospital right flank pain did have urinary symptoms positive UA leukopenia clinically suspicious for right-sided pyelonephritis, from enteric gram-negative pathogen 2-urine is currently growing gram-negative with ID sensitivities pending we will continue Rocephin while waiting for the culture to finalize Dictation was produced using [employer] software. please excuse any grammatical, word or spelling errors.
--- NOTE | 2024-09-23 15:52 | XR ---
EXAMINATION TYPE: XR chest 1V portable DATE OF EXAM: 09/23/2024 3:39 PM COMPARISON: Prior chest radiograph 06/29/2024. CLINICAL INDICATION: Female, 84 years old with history of chf; [facility] TECHNIQUE: XR chest 1V portable Frontal view of the chest. FINDINGS: Lungs/Pleura: There is no evidence of pleural effusion, focal consolidation, or pneumothorax. Pulmonary vascularity: Unremarkable. Heart/mediastinum: Cardiomegaly. Median sternotomy wires. Musculoskeletal: No acute osseous pathology. Other findings: None Lines/Tubes: Left chest wall cardiac AICD device with leads overlying the region of the right atrium and right gia tricle. IMPRESSION: No acute cardiopulmonary disease/process. [facility], , 09/23/2024 3:49 PM
[2024-09-23] MEDS ORDERED: MAG HYDROX/AL HYDROX/SIMETH 30 ML CUP PO PRN (18:24)
[2024-09-24 09:38] LABS: HCT 22.8 % (37.2-46.3); HGB 7.5 g/dL (12.0-15.0); MCH 31.8 pg (27.0-32.0); MCHC 32.9 g/dL (32.0-37.0); MCV 96.6 FL (80.0-97.0); Mean Platelet Volume 10.7 FL (9.5-12.2); NRBC Per 100 WBC 0 X 10*3/uL (0.00-0.01); Platelet Count 126 X 10*3/uL (140-440); RBC 2.36 X 10*6/uL (4.10-5.20); RDW 15.4 % (11.5-14.5); WBC 0.94 X 10*3/uL (4.50-10.00)
[2024-09-24 10:26] LABS: Basophils # (M) 0.08 X 10*3/uL (0.00-0.10); Eosinophils # (M) 0.05 X 10*3/uL (0.04-0.35); Lymphocytes # (M) 0.46 X 10*3/uL (0.90-5.00); Monocytes # (M) 0 X 10*3/uL (0.20-1.00); Neutrophils # (M) 0.36 X 10*3/uL (1.80-7.70); Neutrophils % (M) 38 %; Nucleated Red Blood Cells 2 /100 WBCS
[2024-09-24] MEDS: KETOROLAC 15 MG/ML 1 ML VIAL IVP PRN (12:16)
--- NOTE | 2024-09-24 12:22 | P.PN ---
Subjective Progress Note Date: 09/24/24 Principal diagnosis: Limited stage small cell lung cancer -Afebrile, no acute events -X-ray of the lumbar spine revealed no acute fracture -Clinically, she notes having intermittent discomfort in the low back along with fatigue Objective - Vital Signs Vital signs: Vital Signs Temp 98.5 F 09/24/24 07:09 Pulse 63 09/24/24 07:09 Resp 18 09/24/24 07:09 BP 99/52 09/24/24 07:09 Pulse Ox 95 09/24/24 07:09 FiO2 Intake & Output 09/23/24 09/24/24 09/24/24 17:59 06:59 18:59 Intake Total Balance Intake: Intake, IV Titration Amount Sodium Chloride 0.9% 1, 000 ml @ 75 mls/hr IV . [id number] [facility] Rx#:[id number] cefTRIAXone 1 gm In Sodium Chloride 0.9% 50 ml @ 100 mls/hr IVPB Q24H [facility] Rx#:[id number] Oral Blood Product Rc Irr As1 Unit [id number] Other: Voiding Method Toilet Diaper # Voids 1 # Bowel Movements 1 - Constitutional General appearance: Present: cooperative, no acute distress - EENT EENT Comment(s): No mucositis appreciated in the oral cavity Eyes: Present: EOMI - Respiratory Details: Nonlabored breathing - Cardiovascular Details: Warm and well-perfused - Gastrointestinal General gastrointestinal: Present: soft. Absent: distended - Integumentary Integumentary: Present: pale - Neurologic Neurologic: Present: CNII-XII intact. Absent: focal deficits - Labs CBC & Chem 7: 09/24/24 04:32 09/22/24 10:09 Labs: Abnormal Lab Results - Last 24 Hours (Table) 09/22/24 09/23/24 09/24/24 Range/Units 11:10 03:34 04:32 WBC 1.38 A* 0.94 A* (4.50-10.00) X 10*3/uL RBC 2.05 L 2.36 L (4.10-5.20) X 10*6/uL Hgb 6.7 A* 7.5 L (12.0-15.0) g/dL Hct 20.8 L 22.8 L (37.2-46.3) % MCV 101.5 H (80.0-97.0) FL MCH 32.7 H (27.0-32.0) pg RDW 15.4 H (11.5-14.5) % Plt Count 126 L (140-440) X 10*3/uL Neutrophils # 0.87 L (1.80-7.70) X 10*3/uL Neutrophils # (Manual) 0.36 A* (1.80-7.70) X 10*3/uL Lymphocytes # 0.40 L (0.90-5.00) X 10*3/uL Lymphocytes # (Manual) 0.46 L (0.90-5.00) X 10*3/uL Monocytes # 0.02 L (0.20-1.00) X 10*3/uL Monocytes # (Manual) 0 L (0.20-1.00) X 10*3/uL Crossmatch See Detail Microbiology - Last 24 Hours (Table) 09/22/24 15:45 Blood Culture - Preliminary Blood 09/21/24 15:50 Urine Culture - Final Urine,Voided Escherichia coli Assessment and Plan (1) 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 Also reports mechanical fall into bed Wednesday, but denies injury - Upon admit CT abdomen pelvis without contrast showed no acute changes with the abdomen and pelvis, no abnormalities to noted osseous structures. -UA suspicious for UTI, Rocephin was started on admission -Urine culture revealing dhillon-sensitive E. coli with blood culture negative to date -Continues on Rocephin, ID following Chemotherapy-induced pancytopenia -Reviewed CBC from this morning revealing WBC 0.94 (ANC 0.36), hemoglobin 7.5, platelets 126 -Received 2 units of packed red blood cells this admission -She has chemotherapy-induced pancytopenia from oral etoposide in addition to possible pancytopenia from E. coli UTI -No transfusions required today -Transfuse for hemoglobin less than 7 and platelets less than or equal to 10 or bleeding Dysphagia: -Likely r/t radiation esophagitis -Magic mouthwash swish and swallow ordered today every 4 hours scheduled -Diet currently full liquid Limited stage small cell lung cancer: -Oncology history as dicatted in the HPI -She initiated concurrent chemoradiotherapy with oral etoposide 100 mg daily on days 1 through 21 on 08/02/2024 and initiated radiation therapy on 08/25/2024. -Day 21, cycle 2 of oral etoposide was the day prior to admission. She would have 7 days off before next cycle would be considered. Hold chemo until pt acutely recovers -She is close to completing radiation therapy and holding additional chemotherapy for the remainder of radiation therapy would be reasonable Bryan Donohue MD
[2024-09-24] MEDS: MAG HYDROX/AL HYDROX/SIMETH 30 ML, diphenhydrAMINE ELIXIR 75 MG, LIDOCAINE VISCOUS 2% 3... PO PRN (12:40)
[2024-09-24] MEDS ORDERED: HYDROmorphone 0.5 MG/0.5 ML SYRINGE IVP PRN (13:58)
--- NOTE | 2024-09-24 15:12 | P.GSCN ---
History of Present Illness Consult date: 09/24/24 Reason for Consult: Thoracoabdominal aortic aneurysm. History of present illness: Patient is an 84-year-old female who is currently hospitalized for conditions relating to treatment of lung cancer. She has a history of a thoracic aneurysm which is being followed by Dr. Gross from the department of cardiothoracic surgery. She did undergo CT scan of her abdomen pelvis which showed a 4.0 cm lower thoracic aneurysm as well as a 4.2 cm infrarenal abdominal aortic aneurysm. The patient was cognizant of the thoracic aneurysm but was unsure whether she knew she had an abdominal aortic component. She denies any back pain or abdominal pain. She indicates she follows with Dr. Gross on a yearly basis and last saw Dr. Gross in July of this year. Patient also has a history of lung cancer and has been undergoing both radiation and chemotherapy. She indicates this pulmonary lesion is "shrinking". Past Medical History Past Medical History: Atrial Fibrillation, Coronary Artery Disease (CAD), C ancer, COPD, CVA/TIA, GERD/Reflux, GI Bleed, Hyperlipidemia, Hypertension, Myocardial Infarction ([place]), Osteoarthritis (OA), Vascular Disorder Additional Past Medical History / Comment(s): left lung CA, 07/2024 with chemo and radiation. 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, 02/2020 TIA, TIA 10/2022, carotid stenosis with L car otid endartectomy, pt states she has had irregular heart beat in past but cannot recall type, aortic stenosis/regurgitation, vertigo, balance issues-uses walker, back pain/disc problems, benign colon polyp,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 Last Myocardial Infarction Date:: 2000 History of Any Multi-Drug Resistant Organisms: None Reported Past Surgical History: AICD, Appendectomy, Bowel Resection, Cholecystectomy, Coronary Bypass/CABG, Heart Catheterization With Stent, Hernia Repair, Orthopedic Surgery Additional Past Surgical History / Comment(s): Arch studies, 2000 PCI with stents, 2002 CABG-3 vessel, 2002 AICD, AICD gen changes, DFTs, 2002 L carotid endartectomy, bowel resection for benign flat polyp, abdominal hernia repair, L hip fracture with surgery, L arm benign lesion removed, colonoscopies/polyps, ALEXIS Past Anesthesia/Blood Transfusion Reactions: No Reported Reaction, Motion Sickness Additional Past Anesthesia/Blood Transfusion Reaction / Comm: woke up during battery replacement in defibrillator Date of Last Stent Placement:: 2000 Type of Cardiac Device: AICD Device Placement Date:: 2002- [employer] Past Psychological History: Anxiety Additional Psychological History / Comment(s): She uses a walker. She no longer drives, her granddaughter drives her. Smoking Status: Former smoker Past Alcohol Use History: None Reported Additional Past Alcohol Use History / Comment(s): Pt started smoking in 1969 and was a ppd smoker then cut down to 5 cigarettes a day and recently quit on 10/02/21. States she smoked 60 years Past Drug Use History: None Reported Additional Drug Use History / Comment(s): . - Past Family History Sister(s) Family Medical History: Cancer Additional Family Medical History / Comment(s): Sister had breast/bladder cancers. Son(s) Family Medical History: Cancer Additional Family Medical History / Comment(s): pancreatic cancer Father Family Medical History: Cancer Additional Family Medical History / Comment(s): Bowel cancer. Mother Family Medical History: Cancer Additional Family Medical History / Comment(s): Mother had bowel cancer twice and 2nd time metastasized to her kidney. Medications and Allergies Home Medications Medication Instructions Recorded Confirmed Type Atorvastatin [Lipitor] 80 mg PO HS 01/03/16 09/21/24 History Aspirin 81 mg PO DAILY 30 Days #30 tab 06/24/23 09/21/24 Rx Ascorbic Acid [Vitamin C] 1,000 mg PO DAILY 04/26/24 09/21/24 History Cholecalciferol [Vitamin D3 (25 25 mcg PO DAILY 04/26/24 09/21/24 History Mcg = 1000 Iu)] Cyanocobalamin [Vitamin B-12] 500 mcg PO DAILY 04/26/24 09/21/24 History Famotidine/Ca Carb/Mag Hydrox 1 tab PO DAILY 04/26/24 09/21/24 History [Pepcid Complete Tablet Chew] Psyllium Husk [Fiber Capsule] 0.4 gm PO DAILY 04/26/24 09/21/24 History Quercetin 500 mg PO DAILY 04/26/24 09/21/24 History Zinc Sulfate [Orazinc] 25 mg PO DAILY 04/26/24 09/21/24 History Acetaminophen Tab [Tylenol Tab] 1,500 mg PO HS 09/21/24 09/21/24 History HYDROcodone/APAP 5-325MG [[place] 1 tab PO DAILY PRN 09/21/24 09/21/24 History 5-325] Ketorolac [Toradol] 10 mg PO DIRECTED PRN 09/21/24 09/21/24 History Omeprazole [PriLOSEC] 20 mg PO BID 09/21/24 09/21/24 History Allergies Allergy/AdvReac Type Severity Reaction Status Date / Time lacosamide [From Vimpat] AdvReac AMS Verified 09/21/24 15:43 levetiracetam [From Keppra] AdvReac AMS Verified 09/21/24 15:43 Surgical - Exam Osteopathic Statement: *. No significant issues noted on an osteopathic structural exam other than those noted in the History and Physical/Consult. Vital Signs Temp Pulse Resp BP Pulse Ox 98.2 F 73 16 97/69 99 09/21/24 11:51 09/21/24 11:51 09/21/24 11:51 09/21/24 11:51 09/21/24 11:51 Patient Seen Date: 09/24/24 Patient Seen Time: 14:20 Patient is awake, alert and in no apparent distress. Her biggest complaint is that of left hip pain which is something relatively new for her. Neck is supple free of adenopathy or bruit. Heart is regular without murmur. Lungs are clear to auscultation bilaterally. Abdomen is soft and nontender. Results - Labs 09/24/24 04:32 09/22/24 10:09 Abnormal Lab Results - Last 24 Hours (Table) 09/22/24 09/24/24 Range/Units 11:10 04:32 WBC 0.94 A* (4.50-10.00) X 10*3/uL RBC 2.36 L (4.10-5.20) X 10*6/uL Hgb 7.5 L (12.0-15.0) g/dL Hct 22.8 L (37.2-46.3) % RDW 15.4 H (11.5-14.5) % Plt Count 126 L (140-440) X 10*3/uL Neutrophils # (Manual) 0.36 A* (1.80-7.70) X 10*3/uL Lymphocytes # (Manual) 0.46 L (0.90-5.00) X 10*3/uL Monocytes # (Manual) 0 L (0.20-1.00) X 10*3/uL Crossmatch See Detail Microbiology - Last 24 Hours (Table) 09/22/24 15:45 Blood Culture - Preliminary Blood 09/21/24 15:50 Urine Culture - Final Urine,Voided Escherichia coli - Imaging CT scan - abdomen: image reviewed CT scan - chest: image reviewed Assessment and Plan Assessment: 1: 4.0 cm lower thoracic aortic aneurysm being followed by cardiothoracic surgery. 2: 4.2 cm infrarenal abdominal aortic aneurysm. 3: History of lung cancer 4: History of tobacco abuse although she has stopped smoking. Plan: 1: No intervention is warranted at this time in reference to the abdominal aortic aneurysm. 2: Since she is being followed by Dr. Gross on a yearly basis with a CT scanning of her chest this CAT scan can be extended down into her abdomen to evaluate for potential growth. 3: Would like to see the patient in the office in approximately 1 year to review imaging/following aneurysm size.
--- NOTE | 2024-09-24 15:40 | P.PN ---
Subjective Progress Note Date: 09/24/24 Principal diagnosis: Reason for follow-up is UTI/pyelonephritis Patient is a 84-year-old female with a past medical history significant for coronary artery disease atrial fibrillation reflux hypertension hyperlipidemia metastatic cancer of the lung with the patient is currently on chemoradiation therapy patient present to the hospital concerning for right- sided flank pain patient did have a positive UA leukopenia concerning for possible pyelonephritis. On today's evaluation that is 09/24/2024, Patient is afebrile patient is currently on room air and denies having any shortness of breath, the patient denies any chest pain or cough, the patient denies any nausea vomiting did not have any abdominal pain and no diarrhea. Still complains of pain to the right hip area. The patient white count is 0.94 urine is growing E. coli sensitive pathogen blood culture has been negative Objective - Vital Signs Vital signs: Vital Signs Temp 98.4 F 09/24/24 11:55 Pulse 88 09/24/24 11:55 Resp 16 09/24/24 11:55 BP 114/56 09/24/24 11:55 Pulse Ox 97 09/24/24 11:55 FiO2 Intake & Output 09/23/24 09/24/24 09/24/24 17:59 06:59 18:59 Intake Total Balance Intake: Intake, IV Titration Amount Sodium Chloride 0.9% 1, 000 ml @ 75 mls/hr IV . [id number] [facility] Rx#:[id number] cefTRIAXone 1 gm In Sodium Chloride 0.9% 50 ml @ 100 mls/hr IVPB Q24H [facility] Rx#:[id number] Oral Blood Product Rc Irr As1 Unit [id number] Other: Voiding Method Toilet Diaper # Voids 1 # Bowel Movements 1 - Exam GENERAL DESCRIPTION: An elderly female lying in bed in no distress RESPIRATORY SYSTEM: Unlabored breathing , decreased breath sounds at bases HEART: S1 S2 regular rate and rhythm , ABDOMEN: Soft , no tenderness EXTREMITIES: No edema feet - Labs CBC & Chem 7: 09/24/24 04:32 09/22/24 10:09 Labs: Abnormal Lab Results - Last 24 Hours (Table) 09/22/24 09/24/24 Range/Units 11:10 04:32 WBC 0.94 A* (4.50-10.00) X 10*3/uL RBC 2.36 L (4.10-5.20) X 10*6/uL Hgb 7.5 L (12.0-15.0) g/dL Hct 22.8 L (37.2-46.3) % RDW 15.4 H (11.5-14.5) % Plt Count 126 L (140-440) X 10*3/uL Neutrophils # (Manual) 0.36 A* (1.80-7.70) X 10*3/uL Lymphocytes # (Manual) 0.46 L (0.90-5.00) X 10*3/uL Monocytes # (Manual) 0 L (0.20-1.00) X 10*3/uL Crossmatch See Detail Microbiology - Last 24 Hours (Table) 09/22/24 15:45 Blood Culture - Preliminary Blood 09/21/24 15:50 Urine Culture - Final Urine,Voided Escherichia coli Assessment and Plan (1) Pyelonephritis Current Visit: Yes Status: Acute Code(s): N12 - TUBULO-INTERSTITIAL NEPHRITIS, NOT SPCF ACUTE OR CHRONIC SNOMED Code(s): 49592970 (2) UTI (urinary tract infection) Current Visit: Yes Status: Acute Code(s): N39.0 - URINARY TRACT INFECTION, SITE NOT SPECIFIED SNOMED Code(s): 16450977 Plan: 1patient presented to the hospital right flank pain did have urinary symptoms positive UA leukopenia clinically suspicious for right-sided pyelonephritis, from enteric gram-negative pathogen 2-urine is currently growing E. coli that is a sensitive to Rocephin to continue while inpatient and monitor clinical course closely Dictation was produced using [employer] dictation software. please excuse any grammatical, word or spelling errors. Time with Patient: Less than 30
--- NOTE | 2024-09-25 01:06 | PN ---
PROGRESS NOTE DATE OF SERVICE: 09/24/2024 SUBJECTIVE: This is an 84-year-old woman, who was admitted with fall and back pain, also had possible pyelonephritis. The patient was on antibiotics. The culture showed E coli, which is poly sensitive. The patient is on multiple pain medications also. PAST MEDICAL HISTORY: Reviewed. REVIEW OF SYSTEMS: Fourteen-point review of systems negative except as mentioned earlier. CURRENT MEDICATIONS: Reviewed. PHYSICAL EXAMINATION: VITAL SIGNS: Pulse is 88, blood pressure , respirations 16. HEENT: Conjunctivae normal. NECK: No JVD. CARDIOVASCULAR: S1, S2. RESPIRATIONS: Breath sounds diminished at the bases. A few scattered rhonchi. ABDOMEN: Soft. NEUROLOGIC: Nonfocal. LABORATORY DATA: WBC 0.94, hemoglobin 7.5. ASSESSMENT: 1. Back pain with severe acute pyelonephritis with Escherichia coli. 2. Back pain with degenerative joint disease. 3. Severe pancytopenia. 4. History of lung cancer. 5. Hypertension. 6. Hyperlipidemia. 7. Multiple complex medical issues. RECOMMENDATIONS: Recommend to continue current management and continue symptomatic treatment. Continue with antibiotics. Pain management. Guarded prognosis because of multiple complex medical issues. Further recommendations to follow. See orders for details and repeat labs. MMODL / IJN: [id number] /
--- NOTE | 2024-09-25 08:26 | PN ---
PROGRESS NOTE DATE OF SERVICE: 09/23/2024 SUBJECTIVE: This is an 84-year-old woman who was admitted with UTI and possibly pyelonephritis. Had hemoglobin of 6.8 today. The patient is on pain medication. Also recommended IV pain medications for severe 10/10 pain. Lumbar spine x-rays showed no fracture. CT abdomen showed thoracoabdominal and infrarenal abdominal aortic aneurysm. No chest pain. No palpitation. PAST MEDICAL HISTORY: Reviewed. REVIEW OF SYSTEMS: Fourteen-point review of systems negative except as mentioned earlier. CURRENT MEDICATIONS: Reviewed and include Tylenol. Rest of medications reviewed. PHYSICAL EXAM: VITAL SIGNS: Pulse is 67, blood pressure 94/53, respirations 15. HEENT: Conjunctivae normal. NECK: No JVD. CARDIOVASCULAR: S1, S2. RESPIRATIONS: A few scattered rhonchi. ABDOMEN: Soft. NERVOUS SYSTEM: Nonfocal. LABS: WBC 1.38, hemoglobin 6.7. more than 182. ASSESSMENT: 1. Lower back pain for evaluation, rule out degenerative joint disease. 2. Possible acute pyelonephritis. 3. Thoracoabdominal and infrarenal abdominal aortic aneurysm. 4. Lung cancer. 5. Hypertension. 6. Hyperlipidemia. 7. Coronary artery disease. 8. Coronary artery bypass graft. 9. History of aortic stenosis and TAVR. 10.Chronic systolic dysfunction, ejection fraction 40% to 45%. RECOMMENDATIONS AND DISCUSSION: Recommend to continue current management and continue symptomatic treatment. Pain management. Transfusion. The patient also had leukopenia. I would also recommend Vascular Surgery consultation also. Prognosis extremely guarded. Further recommendations to follow. Hemoglobin was 13.5 in April. Hematology/Oncology also has been consulted. See orders for details. MMODL / IJN: [id number] /
--- NOTE | 2024-09-25 09:21 | P.PN ---
Subjective Progress Note Date: 09/25/24 Principal diagnosis: AAA Patient seen and examined today as a follow-up for 4.2 cm AAA. She denies any abdominal pain or pain into her back. No acute changes through the night. Objective - Vital Signs Vital signs: Vital Signs Temp 98.6 F 09/25/24 07:26 Pulse 77 09/25/24 07:26 Resp 16 09/25/24 07:26 BP 99/52 09/25/24 07:26 Pulse Ox 97 09/25/24 07:26 FiO2 Intake & Output 09/24/24 09/25/24 09/25/24 18:59 06:59 18:59 Intake Total 780 590 Balance 780 590 Intake: Oral 780 590 Other: Voiding Method Toilet Toilet Diaper Diaper # Voids 1 3 # Bowel Movements 1 - Exam General appearance: The patient is alert, oriented, appears in no acute distress. HET: Head is normocephalic and atraumatic. Pupils are equal and reactive. Neck: Supple. Heart: Regular. Lungs: Equal expansion, normal respiratory effort. Abdomen: Soft, nontender, nondistended. Extremities: Normal skin color and turgor. Neurological: No focal deficits. - Labs CBC & Chem 7: 09/24/24 04:32 09/22/24 10:09 Labs: Abnormal Lab Results - Last 24 Hours (Table) 09/22/24 09/24/24 Range/Units 11:10 04:32 WBC 0.94 A* (4.50-10.00) X 10*3/uL RBC 2.36 L (4.10-5.20) X 10*6/uL Hgb 7.5 L (12.0-15.0) g/dL Hct 22.8 L (37.2-46.3) % RDW 15.4 H (11.5-14.5) % Plt Count 126 L (140-440) X 10*3/uL Neutrophils # (Manual) 0.36 A* (1.80-7.70) X 10*3/uL Lymphocytes # (Manual) 0.46 L (0.90-5.00) X 10*3/uL Monocytes # (Manual) 0 L (0.20-1.00) X 10*3/uL Crossmatch See Detail Microbiology - Last 24 Hours (Table) 09/22/24 15:45 Blood Culture - Preliminary Blood Assessment and Plan Assessment: 1: 4.0 cm lower thoracic aortic aneurysm being followed by cardiothoracic surgery. 2: 4.2 cm infrarenal abdominal aortic aneurysm. 3: History of lung cancer 4: History of tobacco abuse although she has stopped smoking. Plan: 1: No intervention is warranted at this time in reference to the abdominal aortic aneurysm. 2: Since she is being followed by Dr. Gross on a yearly basis with a CT scanning of her chest this CAT scan can be extended down into her abdomen to evaluate for potential growth. 3: Would like to see the patient in the office in approximately 1 year to review imaging/following aneurysm size. Thank you for this consultation, vascular surgery will sign off at this time. The impression and plan of care has been dictated as directed. I performed a history and examination of this patient, discussed the same with the dictator. I agree with the dictator's note ,documented as a scribe. Any additional findings or plans will be noted.
--- NOTE | 2024-09-25 11:43 | P.PN ---
Progress Note - Text Progress Note Date: 09/25/24 This is an 84 year old female with medical history of atrial fibrillation, coronary artery disease with prior CABG and PCI, AICD, carotid artery disease, COPD, hypertension, hyperlipidemia, lung cancer with chemoradiation, former smoker. Patient is currently undergoing radiation and last received on Wednesday, states she suffered a fall at home. Did not hit her head or loss consciousness. She has not had any fever at home, but does report feeling chilled. She has not been having any shortness of breath or chest pain. Patient came in with complaints of left flank pain to the ER. States this has been going on since Wednesday. On assessment there appears to be a more focal tenderness on area [place] cent to the mid lumbar spine. Abdominal pelvis CT reveals thoracoabdominal and infrarenal abdominal aortic aneurysms, diverticulosis without CT evidence of diverticulitis, small ventral hernia containing nonstrangulated nonobstructed small bowel loops, no renal calcification or hydronephrosis, no acute changes within the adbomen or pelvis. Urinalysis was done showing cloudy urine 1+ protein, large leukocyte esterase, >182 white blood cell count moderate bacteria and moderate mucus. white blood cell count 1.6, hgb 7.1, sodium 133, calcium 10.4, BUN 33, creatinine 0.86. Concern for UTI and pyelone and patient was started on IV ceftriaxone in the ER. Urine culture has been taken and currently pending at this time. Patient was started on hydration. Her hemoglobin this AM comes back at 6.8 she is set to receive 1 unit of PRBC. Oncology and infectious disease on consultation. September 25: Has been tolerating full liquids. Advance to ground diet. Still having significant pain in the right hip. [place] to be arthritis. Spoke to Janine DENTAL SURGERY DOCTOR from oncology. Patient done with chemotherapy. Patient declined radiation treatment today is finding difficult to lie down. K-pad ordered. Patient granddaughter at bedside. Patient follow-up with Dr. Donohue outpatient. Patient did receive 2 units of PRBC 1 on the seventh and 1 on the eighth. Repeat CBC from today pending. CODE STATUS discussed: DNR. Will order fluoroscopy barium swallow. Possible DC tomorrow Active Medications Acetaminophen (Acetaminophen Tab 325 Mg Tab) 650 mg PO Q6HR PRN PRN Reason: Mild Pain or Fever > 100.5 Last Admin: 09/22/24 13:27 Dose: 650 mg Acetaminophen (Acetaminophen Tab 500 Mg Tab) 1,000 mg PO HS [facility] Last Admin: 09/24/24 21:55 Dose: 1,000 mg Hydrocodone Bitart/Acetaminophen (Hydrocodone/Apap 5-325mg 1 Each Tab) 1 each PO Q6HR PRN PRN Reason: Moderate Pain (Scale 4 to 6) Last Admin: 09/25/24 04:43 Dose: 1 each Aspirin (Aspirin 81 Mg) 81 mg PO DAILY [facility] Last Admin: 09/25/24 08:12 Dose: 81 mg Atorvastatin Calcium (Atorvastatin 80 Mg Tab) 80 mg PO HS [facility] Last Admin: 09/24/24 21:55 Dose: 80 mg Calcium Polycarbophil (Calcium Polycarbophil 625 Mg Tab) 625 mg PO DAILY [facility] Last Admin: 09/25/24 08:12 Dose: 625 mg Cholecalciferol (Cholecalciferol 25 Mcg (1000 Iu) Tablet) 25 mcg PO DAILY [facility] Last Admin: 09/25/24 08:14 Dose: 25 mcg Al Hydroxide/Mg Hydroxide 30 ml/ Diphenhydramine HCl 75 mg/Lidocaine HCl 30 ml 0 ml PO RT-Q4H PRN PRN Reason: Sore Throat Last Admin: 09/25/24 11:08 Dose: 5 ml Cyanocobalamin (Cyanocobalamin 500 Mcg Tab) 500 mcg PO DAILY [facility] Last Admin: 09/25/24 08:13 Dose: 500 mcg Famotidine (Famotidine 20 Mg Tab) 20 mg PO DAILY [facility] Last Admin: 09/25/24 08:13 Dose: 20 mg Hydromorphone HCl (Hydromorphone 0.5 Mg/0.5 Ml Syringe) 0.5 mg IVP Q4HR PRN PRN Reason: Severe Pain (Scale 7 to 10) Sodium Chloride (Saline 0.9%) 1,000 mls @ 75 mls/hr IV .[id number] [facility] Last Admin: 09/24/24 21:41 Dose: 75 mls/hr Ceftriaxone Sodium 2 gm/ (Sodium Chloride) 50 mls @ 100 mls/hr IVPB Q24HR [facility]; Protocol Last Admin: 09/25/24 08:13 Dose: 100 mls/hr Midodrine (Midodrine 5 Mg Tab) 10 mg PO AC-TID [facility] Last Admin: 09/25/24 08:12 Dose: 10 mg Naloxone HCl (Naloxone 0.4 Mg/Ml 1 Ml Vial) 0.2 mg IV Q2M PRN PRN Reason: Opioid Reversal Quercetin [Quercetin (] 500 Mg Capsule) 1 each PO DAILY [facility] Last Admin: 09/25/24 08:15 Dose: Not Given Pantoprazole Sodium (Pantoprazole 40 Mg Tablet) 40 mg PO AC-BID [facility] Last Admin: 09/25/24 08:12 Dose: 40 mg Zinc Sulfate (Zinc Sulfate 220 Mg Cap) 220 mg PO DAILY [facility] Last Admin: 09/25/24 08:14 Dose: 220 mg On examination: VITAL SIGNS: [98.6, 77, 16, 99,/52, 97% room air] GENERAL APPEARANCE: Sitting at the edge of the bed, bit tired appearing. Some bruising HEENT: Normal external appearance of nose and ear. Oral cavity normal. Loss of scalp hair EYES: Pupils equal. Conjunctiva pale.. NECK: JVD not raised. Mass not palpable. RESPIRATORY: Respiratory effort normal. Lungs clear to auscultation. CARDIOVASCULAR: First and second sounds normal. No edema. ABDOMEN: Soft. Liver and spleen not palpable. No tenderness. No mass palpable. PSYCHIATRY: Alert and oriented x3. Mood and affect tired l. INVESTIGATIONS, reviewed in the clinical context: September 24: White count 0.94 hemoglobin 7.5 platelets 126 September 22: Sodium 133 potassium 4.6 creatinine 0.75 UA: Positive for leukoesterase Urine culture positive for E. coli Lumbar spine x-ray: No fracture. Severe DJD changes. Fusion. CT abdomen pelvis: Thoracoabdominal infrarenal abdominal arctic aneurysm. Diverticulosis. Assessment and plan -Fall with lower back pain with focal tenderness adjacent to the mid lumbar spine. No fracture. K-pad. -Acute right-sided pyonephritis with urine culture positive for E. coli IV ceftriaxone -Hypovolemic hyponatremia -Limited stage small cell lung cancer. Received chemotherapy and radiation treatment. Former August 02 of this year and radiation treatment on August 25 of this year. 7 days of before next cycle could be considered. Being followed by Dr. Wilfredo Donohue -Mild dysphagia Fluoroscopy with barium swallow Ground diet -Hyperlipidemia Lipitor -Advance degenerative disc disease, multiple joints K-pad. Pain medications -Coronary artery disease with prior CABG and PCI Aspirin. Lipitor -History of aortic stenosis status post TAVR -COPD, controlled Bronchodilators as needed -Chemotherapy-induced pancytopenia Follow CBC -Anemia of chronic disease from underlying malignancy -Chronic congestive heart failure systolic dysfunction with a EF of 40 to 45% -History of AICD implantation/ischemic cardiomyopathy Thoracoabdominal and infrarenal abdominal aortic aneurysms follows with Dr. Gross on an outpatient basis -DNR [Advance care planning: November 25, 2024. This was done with the patient. Questions answered in detail. Patient is decided to proceed with DNR status. Time spent about 20 minutes.] Past Medical History Past Medical History: Atrial Fibrillation, Coronary Artery Disease (CAD), Cancer, COPD, CVA/TIA, GERD/Reflux, GI Bleed, Hyperlipidemia, Hypertension, Myocardial Infarction (AL), Osteoarthritis (OA), Vascular Disorder Additional Past Medical History / Comment(s): left lung CA, 07/2024 with chemo and radiation. 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, 02/2020 TIA, TIA 10/2022, carotid stenosis with L carotid endartectomy, pt states she has had irregular heart beat in past but cannot recall type, aortic stenosis/regurgitation, vertigo, balance issues-uses walker, back pain/disc problems, benign colon polyp,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 Last Myocardial Infarction Date:: 2000 History of Any Multi-Drug Resistant Organisms: None Reported Past Surgical History: AICD, Appendectomy, Bowel Resection, Cholecystectomy, Coronary Bypass/CABG, Heart Catheterization With Stent, Hernia Repair, Orthopedic Surgery Additional Past Surgical History / Comment(s): Arch studies, 2000 PCI with stents, 2002 CABG-3 vessel, 2002 AICD, AICD gen changes, DFTs, 2002 L carotid endartectomy, bowel resection for benign flat polyp, abdominal hernia repair, L hip fracture with surgery, L arm benign lesion removed, colonoscopies/polyps, ALEXIS Past Anesthesia/Blood Transfusion Reactions: No Reported Reaction, Motion Sickness Additional Past Anesthesia/Blood Transfusion Reaction / Comment(s): woke up during battery replacement in defibrillator Date of Last Stent Placement:: 2000 Type of Cardiac Device: AICD Device Placement Date:: 2002- [employer] Past Psychological History: Anxiety Additional Psychological History / Comment(s): She uses a walker. She no longer drives, her granddaughter drives her. Smoking Status: Former smoker Past Alcohol Use History: None Reported Additional Past Alcohol Use History / Comment(s): Pt started smoking in 1969 and was a ppd smoker then cut down to 5 cigarettes a day and recently quit on 10/02/21. States she smoked 60 years Past Drug Use History: None Reported Additional Drug Use History / Comment(s): .
[2024-09-25 12:34] LABS: MCH 31.7 pg (25.0-35.0); MCHC 32.9 g/dL (31.0-37.0); MCV 96.6 fL (80.0-100.0); Mean Platelet Volume 8.7; RBC 2.69 m/uL (3.80-5.40); RDW 14.9 % (11.5-15.5)
[2024-09-25 12:36] LABS: WBC 0.6 k/uL (3.8-10.6)
[2024-09-25 12:37] LABS: HGB 8.5 gm/dL (11.4-16.0); Platelet Count 106 k/uL (150-450)
--- NOTE | 2024-09-25 14:00 | FL ---
EXAMINATION TYPE: FL barium swallow DATE OF EXAM: 09/25/2024 1:51 PM COMPARISON: None. CLINICAL INDICATION: Female, 84 years old with history of Some trouble swallowing, Dysphagia TECHNIQUE: Esophagram was performed per the air contrast technique. The patient swallowed barium and effervescent crystals without difficulty or delay. Examination is limited given reported pain during the study by the patient FINDINGS: There is evidence of presbyesophagus. There is no evidence for filling defect, mass or diverticulum. No hiatal hernia seen. IMPRESSION: Presbyesophagus without evidence for filling defect or mass. No evidence for stricture at this time. [facility], , 09/25/2024 1:57 PM
[2024-09-25 14:16] LABS: RBC Morphology Normal
--- NOTE | 2024-09-25 15:24 | P.PN ---
Subjective Progress Note Date: 09/25/24 Principal diagnosis: E. coli UTI. Pancytopenia secondary to treatment of small cell lung cancer, limited stage disease In follow-up today patient has complaints of right hip pain, this has been persistent, x-ray and CAT scan not showing any evidence of metastatic disease in the area. She is not able to lay so, she has refused radiation today. Patient continues to have a sore throat, she is using her cool solution, she is tolerating liquids without a cough, she did pass barium swallow. No urine symptoms being reported. Objective - Vital Signs Vital signs: Vital Signs Temp 98.1 F 09/25/24 12:52 Pulse 67 09/25/24 12:52 Resp 16 09/25/24 12:52 BP 132/70 09/25/24 12:52 Pulse Ox 93 L 09/25/24 12:52 FiO2 Intake & Output 09/24/24 09/25/24 09/25/24 18:59 06:59 18:59 Intake Total 780 590 Balance 780 590 Intake: Oral 780 590 Other: Voiding Method Toilet Toilet Toilet Diaper Diaper Diaper # Voids 1 3 # Bowel Movements 1 - Constitutional General appearance: Present: average body habitus, cooperative - EENT Eyes: Present: anicteric sclerae, EOMI ENT: Present: hearing grossly normal, normal oropharynx - Respiratory Respiratory: bilateral: CTA - Cardiovascular Rhythm: regular - Peripheral edema foot Peripheral Edema: bilateral: Trace - Integumentary Integumentary: Present: normal - Neurologic Neurologic: Present: CNII-XII intact - Musculoskeletal Musculoskeletal: Present: generalized weakness, strength equal bilaterally - Psychiatric Psychiatric: Present: A&O x's 3, appropriate affect, intact judgment & insight - Labs CBC & Chem 7: 09/25/24 11:30 09/22/24 10:09 Labs: Abnormal Lab Results - Last 24 Hours (Table) 09/25/24 Range/Units 11:30 WBC 0.6 L* (3.8-10.6) k/uL RBC 2.69 L (3.80-5.40) m/uL Hgb 8.5 L D (11.4-16.0) gm/dL Hct 26.0 L (34.0-46.0) % Plt Count 106 L D (150-450) k/uL Microbiology - Last 24 Hours (Table) 09/22/24 15:45 Blood Culture - Preliminary Blood Assessment and Plan (1) Antineoplastic chemotherapy induced pancytopenia Current Visit: Yes Status: Acute Code(s): D61.810 - ANTINEOPLASTIC CHEMOTHERAPY INDUCED PANCYTOPENIA; T45.1X5A - ADVERSE EFFECT OF ANTINEOPLASTIC AND IMMUNOSUP DRUGS, INIT SNOMED Code(s): 860412936564343 (2) Small cell lung cancer Current Visit: Yes Status: Acute Code(s): C34.90 - MALIGNANT NEOPLASM OF UNSP PART OF UNSP BRONCHUS OR LUNG SNOMED Code(s): 523757012 (3) Fall Current Visit: No Status: Acute Code(s): W19.XXXA - UNSPECIFIED FALL, INITIAL ENCOUNTER SNOMED Code(s): 9160743 Plan: UTI -Presented with right sided low back pain, dysuria, nausea and decreased appetite, she fell last week and now states the pain in her low back may be related. Xray of Lspine neg for malignancy cause or fracture, nothing on CT scan to suggest a malignant process in the rt hip/pelvic area-image reviewed with Rad Onc. -Continues on Rocephin, ID following Chemotherapy-induced pancytopenia -2/2 Oral etoposide, this has been held held -Received 3 units PRBCs since admit. Hgb 8.5 today, stable at this time. Transfuse for Hgb <7 or if symptomatic -WBC 0.6,G-CSF ordered for this evening. CBC with differential TARAS in the AM to assess response -Platelets slightly decreased but, overall would consider them stable post- treatment. 106,000. No special precautions at this time. -Suspect worse counts because of superimposed infection. -Will see how counts recover before resuming any chemo. May require a dose adjustment Dysphagia, radiation esophagitis -Patient had barium swallow showing presbyesophagus, no filling defect, no evidence for stricture. Patient swallowed barium and effervescent crystals without difficulty or delay, examination is limited given reported pain during the study from the patient. -Magic mouthwash swish and swallow ordered today every 4 hours scheduled -Diet currently full liquid. Discussed with IM, advancing to soft diet to see if pt tolerates Limited stage small cell lung cancer -Oncology history as dictated in consult -She initiated concurrent chemoradiotherapy with oral etoposide 100 mg daily on days 1 through 21 on 08/02/2024 and initiated radiation therapy on 08/25/2024. -Day 21, cycle 2 of oral etoposide was the day prior to admission. She would be due to resume on the . Hold chemo until pt acutely recovers and UTI is adequately treated -Discussed with Rad Onc, treatments completed. Pt declined radiation today because of back/rt hip pain. *Pt was informed that currently the hip pain is most likely arthritis as on imaging there is no other pathology at this time. Patient has a history of left hip replacement. She was encouraged to utilize pain medications, heat and cold, topical analgesics to manage pain. -She will f/u with Dr. See Donohue on 10/10 and get recommendations on resuming oral chemo, if she is going to continue radiation. She is going to follow with Vascular for AAA
--- NOTE | 2024-09-25 16:18 | P.PN ---
Subjective Progress Note Date: 09/25/24 Principal diagnosis: Reason for follow-up is UTI/pyelonephritis Patient is a 84-year-old female with a past medical history significant for coronary artery disease atrial fibrillation reflux hypertension hyperlipidemia metastatic cancer of the lung with the patient is currently on chemoradiation therapy patient present to the hospital concerning for right- sided flank pain patient did have a positive UA leukopenia concerning for possible pyelonephritis. On today's evaluation that is 09/25/2024, patient has been afebrile, patient is breathing comfortably and is currently on room air, patient denies having any significant cough no chest pain, patient denies nausea vomiting or diarrhea and no abdominal pain still complaining of pain to the right hip area. Patient white count is 0.6 urine with an equal leg sensitive pathogen blood culture has been negative Objective - Vital Signs Vital signs: Vital Signs Temp 98.1 F 09/25/24 12:52 Pulse 67 09/25/24 12:52 Resp 16 09/25/24 12:52 BP 132/70 09/25/24 12:52 Pulse Ox 93 L 09/25/24 12:52 FiO2 Intake & Output 09/24/24 09/25/24 09/25/24 18:59 06:59 18:59 Intake Total 780 590 Balance 780 590 Intake: Oral 780 590 Other: Voiding Method Toilet Toilet Toilet Diaper Diaper Diaper # Voids 1 3 # Bowel Movements 1 - Exam GENERAL DESCRIPTION: An elderly female lying in bed in no distress RESPIRATORY SYSTEM: Unlabored breathing , decreased breath sounds at bases HEART: S1 S2 regular rate and rhythm , ABDOMEN: Soft , no tenderness EXTREMITIES: No edema feet - Labs CBC & Chem 7: 09/25/24 11:30 09/22/24 10:09 Labs: Abnormal Lab Results - Last 24 Hours (Table) 09/25/24 Range/Units 11:30 WBC 0.6 L* (3.8-10.6) k/uL RBC 2.69 L (3.80-5.40) m/uL Hgb 8.5 L D (11.4-16.0) gm/dL Hct 26.0 L (34.0-46.0) % Plt Count 106 L D (150-450) k/uL Microbiology - Last 24 Hours (Table) 09/22/24 15:45 Blood Culture - Preliminary Blood Assessment and Plan (1) Pyelonephritis Current Visit: Yes Status: Acute Code(s): N12 - TUBULO-INTERSTITIAL NEPHRITIS, NOT SPCF ACUTE OR CHRONIC SNOMED Code(s): 06087665 (2) UTI (urinary tract infection) Current Visit: Yes Status: Acute Code(s): N39.0 - URINARY TRACT INFECTION, SITE NOT SPECIFIED SNOMED Code(s): 41822238 Plan: 1patient presented to the hospital right flank pain did have urinary symptoms positive UA leukopenia clinically suspicious for right-sided pyelonephritis, from enteric gram-negative pathogen 2-urine is currently growing E. coli that is a sensitive to Rocephin to continue while inpatient may benefit from physical therapy evaluation for the right hip pain Dictation was produced using [employer] dictation software. please excuse any grammatical, word or spelling errors. Time with Patient: Less than 30
[2024-09-25] MEDS: FILGRASTIM-SNDZ 300 MCG/0.5 ML SYRINGE SQ SCH (18:50)
[2024-09-26 05:14] LABS: HCT 22.5 % (34.0-46.0); HGB 7.6 gm/dL (11.4-16.0); MCH 32.2 pg (25.0-35.0); MCHC 33.9 g/dL (31.0-37.0); MCV 94.8 fL (80.0-100.0); RBC 2.37 m/uL (3.80-5.40); RDW 15.4 % (11.5-15.5)
[2024-09-26 05:24] LABS: Platelet Count 81 k/uL (150-450)
[2024-09-26 06:50] LABS: Band Neutrophils % 9 %; Basophils # (M) 0.01 k/uL (0-0.2); Eosinophils # (M) 0.08 k/uL (0-0.7); Lymphocytes # (M) 0.22 k/uL (1.0-4.8); Neutrophils % (M) 50 %; Nucleated Red Blood Cells 0 /100 WBC (0-0); Total Cells Counted 100
[2024-09-26 06:51] LABS: Anisocytosis (M) Present
[2024-09-26 07:29] VITALS: BP 106/64; PULSE 79; RESP 18; TEMP 98.1
--- NOTE | 2024-09-26 12:49 | P.PN ---
Subjective Progress Note Date: 09/26/24 Principal diagnosis: Reason for follow-up is UTI/pyelonephritis Patient is a 84-year-old female with a past medical history significant for coronary artery disease atrial fibrillation reflux hypertension hyperlipidemia metastatic cancer of the lung with the patient is currently on chemoradiation therapy patient present to the hospital concerning for right- sided flank pain patient did have a positive UA leukopenia concerning for possible pyelonephritis. On today's evaluation that is 09/26/2024, Patient is afebrile this morning patient denies having any chest pain shortness of breath or cough, the patient is currently on room air, patient denies any abdominal pain no diarrhea no nausea no vomiting. White count is 1.0, no BMP was done blood culture negative urine with E. coli Objective - Vital Signs Vital signs: Vital Signs Temp 98.1 F 09/26/24 07:23 Pulse 79 09/26/24 07:23 Resp 18 09/26/24 07:23 BP 106/64 09/26/24 07:23 Pulse Ox 94 L 09/26/24 07:23 FiO2 Intake & Output 09/25/24 09/26/24 09/26/24 18:59 06:59 18:59 Intake Total 900 540 Balance 900 540 Intake: Oral 900 540 Other: Voiding Method Toilet Toilet Toilet Diaper Diaper Diaper # Voids 3 1 - Exam GENERAL DESCRIPTION: An elderly female lying in bed in no distress RESPIRATORY SYSTEM: Unlabored breathing , decreased breath sounds at bases HEART: S1 S2 regular rate and rhythm , ABDOMEN: Soft , no tenderness EXTREMITIES: No edema feet - Labs CBC & Chem 7: 09/26/24 04:22 09/22/24 10:09 Labs: Abnormal Lab Results - Last 24 Hours (Table) 09/25/24 09/26/24 Range/Units 11:30 04:22 WBC 0.6 L* 1.0 L* (3.8-10.6) k/uL RBC 2.69 L 2.37 L (3.80-5.40) m/uL Hgb 8.5 L D 7.6 L (11.4-16.0) gm/dL Hct 26.0 L 22.5 L (34.0-46.0) % Plt Count 106 L D 81 L (150-450) k/uL Neutrophils # (Manual) 0.50 L (1.3-7.7) k/uL Lymphocytes # (Manual) 0.22 L (1.0-4.8) k/uL Microbiology - Last 24 Hours (Table) 09/22/24 15:45 Blood Culture - Preliminary Blood Assessment and Plan (1) Pyelonephritis Status: Acute Code(s): N12 - TUBULO-INTERSTITIAL NEPHRITIS, NOT SPCF ACUTE OR CHRONIC SNOMED Code(s): 76840084 (2) UTI (urinary tract infection) Status: Acute Code(s): N39.0 - URINARY TRACT INFECTION, SITE NOT SPECIFIED SNOMED Code(s): 70304277 Plan: 1patient presented to the hospital right flank pain did have urinary symptoms positive UA leukopenia clinically suspicious for right-sided pyelonephritis, from enteric gram-negative pathogen 2-patient did have some clinical improvement blood culture have been negative received adequate IV Rocephin finishing therapy with oral Ceftin prescription sent to the pharmacy Dictation was produced using [employer] dictation software. please excuse any grammatical, word or spelling errors. Time with Patient: Less than 30
--- NOTE | 2024-09-26 18:45 | P.DS ---
Providers Date of admission: 09/21/24 17:15 Expected date of discharge: 09/26/24 Attending physician: Deacon Pool Consults: 09/21/24 17:14 Consult Physician Routine Consulting Provider: Wolfgang Govea Consult Reason/Comments: pyelo Do you want consulting provider notified?: Yes 09/22/24 11:01 Consult Physician Routine Consulting Provider: Bryan Donohue Consult Reason/Comments: lung cancer with radiation, anemia Do you want consulting provider notified?: Yes 09/23/24 15:13 Consult Physician Routine Consulting Provider: Eliseo Gan Consult Reason/Comments: aortic aneurysm Do you want consulting provider notified?: Yes Primary care physician: [facility] Hospital Course: This is an 84 year old female with medical history of atrial fibrillation, coronary artery disease with prior CABG and PCI, AICD, carotid artery disease, COPD, hypertension, hyperlipidemia, lung cancer with chemoradiation, former smoker. Patient is currently undergoing radiation and last received on Wednesday, states she suffered a fall at home. Did not hit her head or loss consciousness. She has not had any fever at home, but does report feeling chilled. She has not been having any shortness of breath or chest pain. Patient came in with complaints of left flank pain to the ER. States this has been going on since Wednesday. On assessment there appears to be a more focal tenderness on area adjacent to the mid lumbar spine. Abdominal pelvis CT reveals thoracoabdominal and infrarenal abdominal aortic aneurysms, diverticulosis without CT evidence of diverticulitis, small ventral hernia containing nonstrangulated nonobstructed small bowel loops, no renal calcification or hydronephrosis, no acute changes within the adbomen or pelvis. Urinalysis was done showing cloudy urine 1+ pr otein, large leukocyte esterase, >182 white blood cell count moderate bacteria and moderate mucus. white blood cell count 1.6, hgb 7.1, sodium 133, calcium 10.4, BUN 33, creatinine 0.86. Concern for UTI and pyelone and patient was started on IV ceftriaxone in the ER. Urine culture has been taken and currently pending at this time. Patient was started on hydration. Her hemoglobin this AM comes back at 6.8 she is set to receive 1 unit of PRBC. Oncology and infectious disease on consultation. September 25: Has been tolerating full liquids. Advance to ground diet. Still having significant pain in the right hip. [place] to be arthritis. Spoke to Janine BANK ADVISOR from oncology. Patient done with chemotherapy. Patient declined radiation treatment today is finding difficult to lie down. K-pad ordered. Patient granddaughter at bedside. Patient follow-up with Dr. Donohue outpatient. Patient did receive 2 units of PRBC 1 on the seventh and 1 on the eighth. Repeat CBC from today pending. CODE STATUS discussed: DNR. Will order fluoroscopy barium swallow. Possible DC tomorrow September 26: Patient's barium study showed presbyesophagus. Cleared by oncology- discussed with HERRERA Mehta. Patient to follow-up outpatient Dr. Barrett. Social work involved. Patient received filgrastim yesterday. Discussion and discharge planning more than 35 minutes On examination: VITAL SIGNS: 98.1, 79, 18, 106 x 64, 94% room air GENERAL APPEARANCE: bruising HEENT: Normal external appearance of nose and ear. Oral cavity normal. Loss of scalp hair EYES: Pupils equal. Conjunctiva pale.. NECK: JVD not raised. Mass not palpable. RESPIRATORY: Respiratory effort normal. Lungs clear to auscultation. CARDIOVASCULAR: First and second sounds normal. No edema. ABDOMEN: Soft. Liver and spleen not palpable. No tenderness. No mass palpable. PSYCHIATRY: Alert and oriented x3. Mood and affect normal INVESTIGATIONS, reviewed in the clinical context: September 26: White count 1.0 hemoglobin 7.6 platelets 81 absolute neutrophil count 0.5 September 24: White count 0.94 hemoglobin 7.5 platelets 126 September 22: Sodium 133 potassium 4.6 creatinine 0.75 UA: Positive for leukoesterase Urine culture positive for E. coli Lumbar spine x-ray: No fracture. Severe DJD changes. Fusion. CT abdomen pelvis: Thoracoabdominal infrarenal abdominal arctic aneurysm. Diverticulosis. Assessment and plan -Fall with lower back pain with focal tenderness adjacent to the mid lumbar spine. No fracture. K-pad. -Acute right-sided pyonephritis with urine culture positive for E. coli IV ceftriaxone. Ceftin 500 twice daily for 7 days -Hypovolemic hyponatremia -Limited stage small cell lung cancer. Received chemotherapy and radiation treatment. Former August 02 of this year and radiation treatment on August 25 of this year. 7 days of before next cycle could be considered. Being followed by Dr. 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 Pain medications -Coronary artery disease with prior CABG and PCI Aspirin. Lipitor -History of aortic stenosis status post TAVR -COPD, controlled Bronchodilators as needed -Chemotherapy-induced pancytopenia Follow CBC -Anemia of chronic disease from underlying malignancy -Chronic congestive heart failure systolic dysfunction with a EF of 40 to 45% -History of AICD implantation/ischemic cardiomyopathy Thoracoabdominal and infrarenal abdominal aortic aneurysms follows with Dr. Gross on an outpatient basis -DNR [Advance care planning: November 25, 2024. This was done with the patient. Questions answered in detail. Patient is decided to proceed with DNR status. Time spent about 20 minutes.] Disposition: Home Past Medical History Past Medical History: Atrial Fibrillation, Coronary Artery Disease (CAD), Cancer, COPD, CVA/TIA, GERD/Reflux, GI Bleed, Hyperlipidemia, Hypertension, M yocardial Infarction (LA), Osteoarthritis (OA), Vascular Disorder Additional Past Medical History / Comment(s): left lung CA, 07/2024 with chemo and radiation. 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, 02/2020 TIA, TIA 10/2022, carotid stenosis with L carotid endartectomy, pt states she has had irregular heart beat in past but ca nnot recall type, aortic stenosis/regurgitation, vertigo, balance issues-uses walker, back pain/disc problems, benign colon polyp,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 Last Myocardial Infarction Date:: 2000 History of Any Multi-Drug Resistant Organisms: None Reported Past Surgical History: AICD, Appendectomy, Bowel Resection, Cholecystectomy, Coronary Bypass/CABG, Heart Catheterization With Stent, Hernia Repair, Orthopedic Surgery Additional Past Surgical History / Comment(s): Arch studies, 2000 PCI with stents, 2002 CABG-3 vessel, 2002 AICD, AICD gen changes, DFTs, 2002 L carotid endartectomy, bowel resection for benign flat polyp, abdominal hernia repair, L hip fracture with surgery, L arm benign lesion removed, colonoscopies/polyps, ALEXIS Past Anesthesia/Blood Transfusion Reactions: No Reported Reaction, Motion Sickness Additional Past Anesthesia/Blood Transfusion Reaction / Comment(s): woke up during battery replacement in defibrillator Date of Last Stent Placement:: 2000 Type of Cardiac Device: AICD Device Placement Date:: 2002- Real Intent Past Psychological History: Anxiety Additional Psychological History / Comment(s): She uses a walker. She no longer drives, her granddaughter drives her. Smoking Status: Former smoker Past Alcohol Use History: None Reported Additional Past Alcohol Use History / Comment(s): Pt started smoking in 1969 and was a ppd smoker then cut down to 5 cigarettes a day and recently quit on 10/02/21. States she smoked 60 years Past Drug Use History: None Reported Additional Drug Use History / Comment(s): . Plan - Discharge Summary New Discharge Prescriptions: New Midodrine [ProAmatine] 5 mg PO AC-TID #90 tab Acetaminophen Tab [Tylenol] 1,000 mg PO QID #100 tab cefuroxime axetiL [Ceftin] 500 mg PO BID #14 tab Continue Atorvastatin [Lipitor] 80 mg PO HS Aspirin 81 mg PO DAILY 30 Days #30 tab Zinc Sulfate [Orazinc] 25 mg PO DAILY Quercetin 500 mg PO DAILY Cyanocobalamin [Vitamin B-12] 500 mcg PO DAILY Cholecalciferol [Vitamin D3 (25 Mcg = 1000 Iu)] 25 mcg PO DAILY Ascorbic Acid [Vitamin C] 1,000 mg PO DAILY Famotidine/Ca Carb/Mag Hydrox [Pepcid Complete Tablet Chew] 1 tab PO DAILY Omeprazole [PriLOSEC] 20 mg PO BID Psyllium Husk [Fiber Capsule] 0.4 gm PO DAILY Changed HYDROcodone/APAP 5-325MG [[place] 5-325] 1 tab PO Q8H PRN #30 tab PRN Reason: Pain Discontinued Ketorolac [Toradol] 10 mg PO DIRECTED PRN PRN Reason: Pain Acetaminophen Tab [Tylenol Tab] 1,500 mg PO HS Discharge Medication List Atorvastatin [Lipitor] 80 mg PO HS 01/03/16 [History] Aspirin 81 mg PO DAILY 30 Days #30 tab 06/24/23 [Rx] Ascorbic Acid [Vitamin C] 1,000 mg PO DAILY 04/26/24 [History] Cholecalciferol [Vitamin D3 (25 Mcg = 1000 Iu)] 25 mcg PO DAILY 04/26/24 [History] Cyanocobalamin [Vitamin B-12] 500 mcg PO DAILY 04/26/24 [History] Famotidine/Ca Carb/Mag Hydrox [Pepcid Complete Tablet Chew] 1 tab PO DAILY 04/26/24 [History] Psyllium Husk [Fiber Capsule] 0.4 gm PO DAILY 04/26/24 [History] Quercetin 500 mg PO DAILY 04/26/24 [History] Zinc Sulfate [Orazinc] 25 mg PO DAILY 04/26/24 [History] Omeprazole [PriLOSEC] 20 mg PO BID 09/21/24 [History] Acetaminophen Tab [Tylenol] 1,000 mg PO QID #100 tab 09/26/24 [Rx] HYDROcodone/APAP 5-325MG [[place] 5-325] 1 tab PO Q8H PRN #30 tab 09/26/24 [Rx] Midodrine [ProAmatine] 5 mg PO AC-TID #90 tab 09/26/24 [Rx] cefuroxime axetiL [Ceftin] 500 mg PO BID #14 tab 09/26/24 [Rx] Follow up Appointment(s)/Referral(s): Nishant Huffman DO [Primary Care Provider] - 1-2 days (The office will call with an appointment) Bryan Donohue MD [STAFF PHYSICIAN] - 10/10/24 11:45 am [facility], [NON-STAFF] - As Needed ([facility] will call you to schedule first session) Patient Instructions/Handouts: Cefuroxime (By mouth), Acetaminophen (By mouth), Hydrocodone/Acetaminophen (By mouth), Midodrine (By mouth), Urinary Tract Infection in Women (DC) Activity/Diet/Wound Care/Special Instructions: call dr govea for dc antibiotics Discharge Disposition: HOME WITH HOME HEALTH SERVICES
--- NOTE | 2024-09-26 21:27 | P.PN ---
Subjective Progress Note Date: 09/26/24 Principal diagnosis: E. coli UTI. Pancytopenia secondary to treatment of small cell lung cancer, limited stage disease In follow-up today patient has no new complaints. She did refuse radiation again today. Patient is very concerned about progressive swallowing symptoms and not being able to tolerate oral intake. Objective - Vital Signs Vital signs: Vital Signs Temp 98.1 F 09/26/24 07:23 Pulse 79 09/26/24 07:23 Resp 18 09/26/24 07:23 BP 106/64 09/26/24 07:23 Pulse Ox 94 L 09/26/24 07:23 FiO2 Intake & Output 09/25/24 09/26/24 09/26/24 18:59 06:59 18:59 Intake Total 900 540 Balance 900 540 Intake: Oral 900 540 Other: Voiding Method Toilet Toilet Toilet Diaper Diaper Diaper # Voids 3 1 - Constitutional General appearance: Present: average body habitus, cooperative, no acute distress - EENT Eyes: Present: anicteric sclerae, EOMI ENT: Present: hearing grossly normal, normal oropharynx - Respiratory Details: Respirations even and unlabored - Cardiovascular Details: Skin warm and dry, radial pulse 2+ - Integumentary Integumentary: Present: pale - Neurologic Neurologic: Present: CNII-XII intact - Musculoskeletal Musculoskeletal: Present: generalized weakness, strength equal bilaterally - Psychiatric Psychiatric: Present: A&O x's 3, appropriate affect, intact judgment & insight - Labs CBC & Chem 7: 09/26/24 04:22 09/22/24 10:09 Labs: Abnormal Lab Results - Last 24 Hours (Table) 09/26/24 Range/Units 04:22 WBC 1.0 L* (3.8-10.6) k/uL RBC 2.37 L (3.80-5.40) m/uL Hgb 7.6 L (11.4-16.0) gm/dL Hct 22.5 L (34.0-46.0) % Plt Count 81 L (150-450) k/uL Neutrophils # (Manual) 0.50 L (1.3-7.7) k/uL Lymphocytes # (Manual) 0.22 L (1.0-4.8) k/uL Microbiology - Last 24 Hours (Table) 09/22/24 15:45 Blood Culture - Preliminary Blood Assessment and Plan (1) Antineoplastic chemotherapy induced pancytopenia Status: Acute Code(s): D61.810 - ANTINEOPLASTIC CHEMOTHERAPY INDUCED PANCYTOPENIA; T45.1X5A - ADVERSE EFFECT OF ANTINEOPLASTIC AND IMMUNOSUP DRUGS, INIT SNOMED Code(s): 213638123616034 (2) Small cell lung cancer Status: Acute Code(s): C34.90 - MALIGNANT NEOPLASM OF UNSP PART OF UNSP BRONCHUS OR LUNG SNOMED Code(s): 136807359 (3) Fall Status: Acute Code(s): W19.XXXA - UNSPECIFIED FALL, INITIAL ENCOUNTER SNOMED Code(s): 8913025 Plan: UTI -Presented with right sided low back pain, dysuria, nausea and decreased appetite, she fell last week and now states the pain in her low back may be related. Xray of Lspine neg for malignancy cause or fracture, nothing on CT scan to suggest a malignant process in the rt hip/pelvic area-image reviewed with Rad Onc. -ID recommended ceftin oral for additional 7 days on DC Chemotherapy-induced pancytopenia -2/2 Oral etoposide, this has been held held -Received 3 units PRBCs since admit. Hgb 7.6 today. -WBC 1 with ANC 500 after GCSF -Platelets dropped back to 81,000 but, still adequate -Suspect worse counts because of superimposed infection. -Will see how counts recover before resuming any chemo. Will require a dose adjustment Dysphagia, radiation esophagitis -Patient had barium swallow showing presbyesophagus, no filling defect, no evidence for stricture. Patient swallowed barium and effervescent crystals wit hout difficulty or delay, examination is limited given reported pain during the study from the patient. -Magic mouthwash swish and swallow ordered today every 4 hours scheduled -Pt tolerating liquids diet,she did eat some soft foods, no vomiting Limited stage small cell lung cancer -Oncology history as dictated in consult -She initiated concurrent chemoradiotherapy with oral etoposide 100 mg daily on days 1 through 21 on 08/02/2024 and initiated radiation therapy on 08/25/2024. -Day 21 of cycle 2 of oral etoposide was the day prior to admission. PT INSTRUCTED TO HOLD etoposide until assessed by Dr. Donohue on the . -Pt has completed radiation treatments. Pt declined radiation today because of fear of dysphagia/odynophagia Hip pain -Pt was informed that currently the hip pain is most likely arthritis as on imaging, there is no other pathology at this time. Patient has a history of left hip replacement. She was encouraged to utilize pain medications, heat and cold, topical analgesics to manage pain. Discussed case with IM. Agree with discharge today Patient has pain medications on DC. She was discharged with home health services. She is going to follow with Vascular for AAA
== END 2024-09-26 12:13 | disposition home health service (06) | DRG 689 ==
LOC: EC 11:49 → 5NMEDONC 17:15
PROVIDERS: ADMIT Hospitalist; ATTEND Hospitalist
DX: N10 Acute pyelonephritis (principal); D61.810 Antineoplastic chemotherapy induced pancytopenia; C34.01 Malignant neoplasm of right main bronchus; Z66 Do not resuscitate; E87.1 Hypo-osmolality and hyponatremia; T66.XXXA Radiation sickness, unspecified, initial encounter; E86.1 Hypovolemia; R13.10 Dysphagia, unspecified; B96.20 Unspecified Escherichia coli [E. coli] as the cause of diseases classified elsewhere; D84.9 Immunodeficiency, unspecified; I11.0 Hypertensive heart disease with heart failure; J44.9 Chronic obstructive pulmonary disease, unspecified; I71.43 Infrarenal abdominal aortic aneurysm, without rupture; Z95.2 Presence of prosthetic heart valve; D63.0 Anemia in neoplastic disease; I50.22 Chronic systolic (congestive) heart failure; I48.91 Unspecified atrial fibrillation; I35.0 Nonrheumatic aortic (valve) stenosis; E78.5 Hyperlipidemia, unspecified; F41.9 Anxiety disorder, unspecified; I25.5 Ischemic cardiomyopathy; I25.2 Old myocardial infarction; I25.10 Atherosclerotic heart disease of native coronary artery without angina pectoris; K22.89 Other specified disease of esophagus; T45.1X5A Adverse effect of antineoplastic and immunosuppressive drugs, initial encounter; K57.30 Diverticulosis of large intestine without perforation or abscess without bleeding; I71.60 Thoracoabdominal aortic aneurysm, without rupture, unspecified; M19.90 Unspecified osteoarthritis, unspecified site; X58.XXXA Exposure to other specified factors, initial encounter; Y92.009 Unspecified place in unspecified non-institutional (private) residence as the place of occurrence of the external cause; W19.XXXA Unspecified fall, initial encounter; Z79.82 Long term (current) use of aspirin; Z79.899 Other long term (current) drug therapy; Z86.73 Personal history of transient ischemic attack (TIA), and cerebral infarction without residual deficits; Z87.891 Personal history of nicotine dependence; Z92.3 Personal history of irradiation; Z95.1 Presence of aortocoronary bypass graft; Z95.810 Presence of automatic (implantable) cardiac defibrillator; Z95.5 Presence of coronary angioplasty implant and graft; Z88.8 Allergy status to other drugs, medicaments and biological substances; Z87.19 Personal history of other diseases of the digestive system; K20.80 Other esophagitis without bleeding; Z90.49 Acquired absence of other specified parts of digestive tract; Z86.0100 Personal history of colon polyps, unspecified
CPT/HCPCS: 36415; 71045; 72100; 74176; 74220; 80048; 80053; 81001; 85025; 86850; 86900; 86901; 86920; 87040; 87077; 87086; 87186; 93005; 96374; 96375; 99285

== ENCOUNTER → 2024-10-18 | Outpatient (CLI) | payer MEDICARE, BC ==
[2024-10-18 14:28] LABS: African American GFR (CKD) >90 (>60 ml/min/1.73 sqM); Blood Urea Nitrogen 11 mg/dL (7-17); Non-African American GFR(CKD) 83 (>60 ml/min/1.73 sqM)
== END | disposition home or self-care (01) ==
LOC: RADCTMAIN 13:04
PROVIDERS: ATTEND Internal Medicine
DX: C34.92 Malignant neoplasm of unspecified part of left bronchus or lung (principal); I25.2 Old myocardial infarction; Z71.3 Dietary counseling and surveillance
CPT/HCPCS: 82565; 84520

== ENCOUNTER 2024-10-24 07:56 | Emergency (ER) | payer MEDICARE, BC ==
[2024-10-24] MEDS: SODIUM CHLORIDE 0.9% 1,000 ML IV ONE (08:18)
--- NOTE | 2024-10-24 08:19 | ED ---
Fall HPI - General Chief Complaint: Fall Stated Complaint: hip/back pain Time Seen by Provider: 10/24/24 08:07 Source: patient, family, RN notes reviewed Mode of arrival: wheelchair Limitations: no limitations - History of Present Illness Initial Comments: This is an 84 year old female who presents to the emergency department for a fall. States that 3 days ago she was getting ready for bed and fell backwards onto her right side. Denies hitting her head or any loss of consciousness. Not taking any blood thinners. Currently complains of pain over the right rib cage, which is worse with inspiration, and the right hip/lower back. However the hip and back pain has been ongoing for over a month. She does have lung cancer and was previously receiving chemotherapy and radiation treatment. However, she had to stop the treatment because she could not lay on the table due to the pain in her right hip and lower back. States that she was in the hospital last month and they were not sure what was causing her pain. Pain has since persisted. She occasionally gets radiation into the thigh. This does make it difficult to bear weight. In general states that she just does not feel very well and is increasingly weak. Denies any chest pain or shortness of breath. MD Complaint: fall - Related Data Home Medications Medication Instructions Recorded Confirmed Atorvastatin [Lipitor] 80 mg PO HS 01/03/16 09/21/24 Ascorbic Acid [Vitamin C] 1,000 mg PO DAILY 04/26/24 09/21/24 Cholecalciferol [Vitamin D3 (25 25 mcg PO DAILY 04/26/24 09/21/24 Mcg = 1000 Iu)] Cyanocobalamin [Vitamin B-12] 500 mcg PO DAILY 04/26/24 09/21/24 Famotidine/Ca Carb/Mag Hydrox 1 tab PO DAILY 04/26/24 09/21/24 [Pepcid Complete Tablet Chew] Psyllium Husk [Fiber Capsule] 0.4 gm PO DAILY 04/26/24 09/21/24 Quercetin 500 mg PO DAILY 04/26/24 09/21/24 Zinc Sulfate [Orazinc] 25 mg PO DAILY 04/26/24 09/21/24 Omeprazole [PriLOSEC] 20 mg PO BID 09/21/24 09/21/24 Previous Rx's Medication Instructions Recorded Aspirin 81 mg PO DAILY 30 Days #30 tab 06/24/23 Acetaminophen Tab [Tylenol] 1,000 mg PO QID #100 tab 09/26/24 HYDROcodone/APAP 5-325MG [Corning 1 tab PO Q8H PRN #30 tab 09/26/24 5-325] Midodrine [ProAmatine] 5 mg PO AC-TID #90 tab 09/26/24 cefuroxime axetiL [Ceftin] 500 mg PO BID #14 tab 09/26/24 HYDROcodone/APAP 5-325MG [[place] 1 tab PO Q6HR PRN 3 Days #12 tab 10/24/24 5-325] Nitrofurantoin Monohyd/M-Cryst 100 mg PO Q12HR 5 Days #10 cap 10/24/24 [Macrobid] predniSONE 50 mg PO DAILY 5 Days #5 tab 10/24/24 Allergies Allergy/AdvReac Type Severity Reaction Status Date / Time lacosamide [From Vimpat] AdvReac AMS Verified 09/21/24 15:43 levetiracetam [From Keppra] AdvReac AMS Verified 09/21/24 15:43 Review of Systems ROS Statement: Those systems with pertinent positive or pertinent negative responses have been documented in the HPI. ROS Other: All systems not noted in ROS Statement are negative. Past Medical History Past Medical History: Atrial Fibrillation, Coronary Artery Disease (CAD), Cancer, COPD, CVA/TIA, GERD/Reflux, GI Bleed, Hyperlipidemia, Hypertension, Myocardial Infarction ([place]), Osteoarthritis (OA), Vascular Disorder Additional Past Medical History / Comment(s): left lung CA, 07/2024 with chemo and radiation. 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, 02/2020 TIA, TIA 10/2022, carotid stenosis with L carotid endartectomy, pt states she has had irregular heart beat in past but cannot recall type, aortic stenosis/regurgitation, vertigo, balance issues-uses walker, back pain/disc problems, benign colon polyp,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 Last Myocardial Infarction Date:: 2000 History of Any Multi-Drug Resistant Organisms: None Reported Past Surgical History: AICD, Appendectomy, Bowel Resection, Cholecystectomy, Coronary Bypass/CABG, Heart Catheterization With Stent, Hernia Repair, Orthopedic Surgery Additional Past Surgical History / Comment(s): Arch studies, 2000 PCI with stents, 2003 CABG-3 vessel, 2003 AICD, AICD gen changes, DFTs, 2003 L carotid endartectomy, bowel resection for benign flat polyp, abdominal hernia repair, L hip fracture with surgery, L arm benign lesion removed, colonoscopies/polyps, ALEXIS Past Anesthesia/Blood Transfusion Reactions: No Reported Reaction, Motion Sickness Additional Past Anesthesia/Blood Transfusion Reaction / Comment(s): woke up during battery replacement in defibrillator Date of Last Stent Placement:: 2000 Type of Cardiac Device: AICD Device Placement Date:: 2002- Orphazyme Past Psychological History: Anxiety Smoking Status: Former smoker Past Alcohol Use History: None Reported Past Drug Use History: None Reported - Past Family History Sister(s) Family Medical History: Cancer Additional Family Medical History / Comment(s): Sister had breast/bladder cancers. Son(s) Family Medical History: Cancer Additional Family Medical History / Comment(s): pancreatic cancer Father Family Medical History: Cancer Additional Family Medical History / Comment(s): Bowel cancer. Mother Family Medical History: Cancer Additional Family Medical History / Comment(s): Mother had bowel cancer twice and 2nd time metastasized to her kidney. General Exam Limitations: no limitations General appearance: alert, in no apparent distress Head exam: Present: atraumatic, normocephalic, normal inspection Respiratory exam: Present: normal lung sounds bilaterally, chest wall tenderness (Right sided rib cage). Absent: respiratory distress, wheezes, rales, rhonchi, stridor Cardiovascular Exam: Present: regular rate, normal rhythm Extremities exam: Present: other (No palpable tenderness over the right hip. Full range of motion. 2+ DP and PT pulses) Neurological exam: Present: alert, oriented X3, CN II-XII intact Psychiatric exam: Present: normal affect, normal mood Skin exam: Present: warm, dry, intact, normal color. Absent: rash Course Vital Signs 10/24/24 10/24/24 10/24/24 07:59 09:23 11:14 Temperature 97.6 F 98 F Pulse Rate 80 75 76 Respiratory 20 18 18 Rate Blood Pressure 143/76 140/90 138/76 O2 Sat by Pulse 95 98 96 Oximetry Medical Decision Making - Medical Decision Making This is an 84-year-old female who presents to the emergency department for a fall with hip pain and rib pain. Was pt. sent in by a medical professional or institution? @ -No Did you speak to anyone other than the patient for history? @ -No Did you review nursing and triage notes? @ -Yes, and I agree, it is accurate with regards to the patient's symptoms. Were old charts reviewed? @ -Urine culture from 09/21/2024 which was positive for E. coli. Differential Diagnosis? @ -Differential Musculoskeletal Muscular strain, contusion, ligament sprain, fracture, arthritis, septic arthritis, bursitis, cellulitis, muscle spasm, nerve compression, DVT, arterial occlusion, herpes zoster, electrolyte abnormality, tumor.... This is not meant to be in all inclusive list EKG interpreted by me (3pts min.)? @ -Not obtained X-rays interpreted by me (1pt min.)? @ -Chest x-ray obtained, my interpretation identifies no localized consolidations or infiltrates. CT interpreted by me (1pt min.)? @ -CT scan of the lumbar spine obtained. My interpretation identifies no acute fractures. CT scan of the pelvis obtained. My interpretation identifies no acute fractures. U/S interpreted by me (1pt. min.)? @ -Not obtained What testing was considered but not performed? (CT, X-rays, U/S, labs)? Why? @ -None What meds were considered but not given? Why? @ -None Did you discuss the management of the patient with other professionals? @ -No Did you reconcile home meds? @ -No Was smoking cessation discussed for >3mins.? @ -No Was critical care preformed (if so, how long)? @ -No Were there social determinants of health that impacted care today? How? (Homelessness, low income, unemployed, alcoholism, drug addiction, transportation, low edu. Level, literacy, decrease access to med. care, half-way, rehab)? @ -No Was there de-escalation of care discussed even if they declined? (Discuss DNR or withdrawal of care, Hospice)? @ -No What co-morbidities impacted this encounter? (DM, HTN, Smoking, COPD, CAD, Cancer, CVA, Hep., AIDS, mental health diagnosis, sleep apnea, morbid obesity)? @ -Lung cancer, osteoarthritis Was patient admitted / discharged? @ -Discharged. Lab work unremarkable. Urinalysis consistent with infection and urine was sent for culture. X-ray of the right rib cage and chest obtained revealing no acute process, including no rib fractures. The pain was in the right lower back/buttocks area as opposed to just the hip. CT scan of the pelvis and lumbar spine obtained. No acute process is evident, however she has severe foraminal stenosis, spinal canal stenosis, and retrolithiasis. Discussed the possibility of sciatica based on these findings. Advised that we can aim to manage her symptoms for the meantime. She inquired about follow-up with a specialist. Case management made the patient an appointment with orthopedic spine on 10/27. Prednisone and Corning prescribed for management of suspected sciatica. Additionally, she was given 1 g ceftriaxone in the emergency department for the UTI and Macrobid was prescribed. Her urine culture from 09/21/2024 was positive for E. coli and Macrobid was shown to be effective. While she does not have any obvious fractures of the rib cage, advised she still take several deep breaths an hour despite the pain to reduce the risk of developing a secondary pneumonia. Patient discharged home in stable condition. Case discussed with ED attending Dr. Howard. Return precautions reviewed in depth, the patient is instructed to return to the emergency department with any new, worsening, or concerning symptoms. Patient verbalized understanding. Undiagnosed new problem with uncertain prognosis? @ -None Drug Therapy requiring intensive monitoring for toxicity (Heparin, Nitro, Insulin, Cardizem)? @ -None Were any procedures done? @ -None Diagnosis/symptom? @ -Sciatica, UTI, fall, right rib contusion Acute, or Chronic, or Acute on Chronic? @ -Acute Uncomplicated (without systemic symptoms) or Complicated (systemic symptoms)? @ -Uncomplicated Side effects of treatment? @ -None Exacerbation, Progression, or Severe Exacerbation] @ -Not applicable Poses a threat to life or bodily function? @ -No - Lab Data Result diagrams: 10/24/24 08:49 10/24/24 08:49 Lab Results 10/24/24 10/24/24 10/24/24 Range/Units 08:49 08:49 08:49 WBC 7.60 (4.50-10.00) 10*3/uL RBC 3.37 L (4.10-5.20) 10*6/uL Hgb 11.0 L (12.0-15.0) g/dL Hct 33.1 L (37.2-46.3) % MCV 98.2 H (80.0-97.0) fL MCH 32.6 H (27.0-32.0) pg MCHC 33.2 (32.0-37.0) g/dL Plt Count 197 (140-440) 10*3/uL MPV 9.5 (9.5-12.2) fL Immature Gran % (Auto) 0.3 % Neutrophils % 77.5 % Lymphocytes % 10.9 % Monocytes % 8.3 % Eosinophils % 2.2 % Basophils % 0.8 % Immature Gran # 0.02 (0.00-0.04) 10*3/uL Neutrophils # 5.89 (1.80-7.70) 10*3/uL Lymphocytes # 0.83 L (0.90-5.00) 10*3/uL Monocytes # 0.63 (0.20-1.00) 10*3/uL Eosinophils # 0.17 (0.04-0.35) 10*3/uL Basophils # 0.06 (0.00-0.10) 10*3/uL Sodium 134 L (137-145) mmol/L Potassium 4.3 (3.5-5.1) mmol/L Chloride 100 (98-107) mmol/L Carbon Dioxide 28 (22-30) mmol/L Anion Gap 6 mmol/L BUN 13 (7-17) mg/dL Creatinine 0.60 (0.52-1.04) mg/dL Est GFR (CKD-EPI)AfAm >90 (>60 ml/min/1.73 sqM) Est GFR (CKD-EPI)NonAf 85 (>60 ml/min/1.73 sqM) Glucose 110 H (74-99) mg/dL Calcium 10.5 H (8.4-10.2) mg/dL Magnesium 1.9 (1.6-2.3) mg/dL Total Bilirubin 1.2 (0.2-1.3) mg/dL AST 30 (14-36) U/L ALT 16 (4-34) U/L Alkaline Phosphatase 93 (38-126) U/L Total Protein 6.8 (6.3-8.2) g/dL Albumin 4.1 (3.5-5.0) g/dL Urine Color Yellow Urine Appearance Cloudy H (Clear) Urine pH 5.5 (5.0-8.0) Ur Specific [place] 1.020 (1.001-1.035) Urine Protein Trace H (Negative) Urine Glucose (UA) Negative (Negative) Urine Ketones Negative (Negative) Urine Blood Small H (Negative) Urine Nitrite Positive H (Negative) Urine Bilirubin Negative (Negative) Urine Urobilinogen <2.0 (<2.0) mg/dL Ur Leukocyte Esterase Large H (Negative) Urine RBC 25 H (0-5) /hpf Urine WBC >182 H (0-5) /hpf Urine WBC Clumps Rare H (None) /hpf Ur Squamous Epith Cells 2 (0-4) /hpf Urine Bacteria Many H (None) /hpf Urine Mucus Occasional H (None) /hpf - Radiology Data Radiology results: report reviewed, image reviewed Disposition Clinical Impression: Fall, Contusion of rib on right side, Sciatica of right side, UTI (urinary tract infection) Disposition: HOME SELF-CARE Instructions (If sedation given, give patient instructions): Sciatica (ED), Fall Prevention for Older Adults (ED), Lumbar Radiculopathy (ED), Rib Contusion (ED) Additional Instructions: Return to the emergency department with any new, worsening, or concerning symptoms. Take the antibiotic as prescribed for 5 days. Take the prednisone daily for 5 days. Take the Corning sparingly when your pain is the most severe. Make sure you take several deep breaths an hour despite the pain to reduce the risk of developing a secondary pneumonia. Follow-up with orthopedics on 10/27 as scheduled. Follow up with your primary care provider as well. Prescriptions: Nitrofurantoin Monohyd/M-Cryst [Macrobid] 100 mg PO Q12HR 5 Days #10 cap HYDROcodone/APAP 5-325MG [Corning 5-325] 1 tab PO Q6HR PRN 3 Days #12 tab PRN Reason: Pain predniSONE 50 mg PO DAILY 5 Days #5 tab Is patient prescribed a controlled substance at d/c from ED?: Yes When asked, does pt state using other controlled substances?: No If prescribed controlled substance>3 days was MAPS reviewed?: Prescribed <3 Days Referrals: Nishant Huffman DO [Primary Care Provider] - 1-2 days Reena Abraham DO [Doctor of Osteopathic Medicine] - 10/27/24 1:15 pm (Please bring insurance and ID cards. You will have new patient information to complete.) Time of Disposition: 10:47
[2024-10-24] MEDS: SODIUM CHLORIDE 0.9% 500 ML 500 ML IV ONE (08:48)
[2024-10-24] MEDS: KETOROLAC 15 MG/ML 1 ML VIAL IVP STA (08:50)
--- NOTE | 2024-10-24 08:50 | XR ---
EXAMINATION TYPE: XR ribs RT w pa chest xray DATE OF EXAM: 10/24/2024 8:41 AM COMPARISON: Prior chest x-ray September 23, 2024 CLINICAL INDICATION: Female, 84 years old with history of Fall; PHH, pain TECHNIQUE: XR ribs RT w pa chest xray; Frontal and oblique views of the ribs with frontal chest radio graph. FINDINGS: The ribs have a normal appearance. No evidence of acute displaced fracture. Overlying sternal wires and mediastinal clips are redemonstrated. Cardiac silhouette size is stable and upper limits of normal with dual lead pacemaker/defibrillator r edemonstrated. Persistent atherosclerotic and ectatic thoracic aorta. Surgical change at the level of the aortic valve is redemonstrated. Embolization coils in the right midabdomen are partially imaged. IMPRESSION: No acute displaced right-sided rib fracture. No acute pulmonary process. [facility], , 10/24/2024 8:48 AM
[2024-10-24] MEDS: MORPHINE SULFATE 2 MG/ML SYRINGE IVP STA (08:51)
[2024-10-24] MEDS: LIDOCAINE 4% PATCH TOPICAL ONE (08:52)
[2024-10-24 08:58] LABS: Basophils # (A) 0.06 10*3/uL (0.00-0.10); Basophils % (A) 0.8 %; Eosinophils # (A) 0.17 10*3/uL (0.04-0.35); Eosinophils % (A) 2.2 %; HCT 33.1 % (37.2-46.3); Lymphocytes # (A) 0.83 10*3/uL (0.90-5.00); Lymphocytes % (A) 10.9 %; MCH 32.6 pg (27.0-32.0); MCHC 33.2 g/dL (32.0-37.0); MCV 98.2 fL (80.0-97.0); Mean Platelet Volume 9.5 fL (9.5-12.2); Monocytes # (A) 0.63 10*3/uL (0.20-1.00); Monocytes % (A) 8.3 %; Neutrophils # (A) 5.89 10*3/uL (1.80-7.70); Neutrophils % (A) 77.5 %; Platelet Count 197 10*3/uL (140-440); RBC 3.37 10*6/uL (4.10-5.20); RDW 17.3 % (11.5-14.5)
--- NOTE | 2024-10-24 09:00 | CT ---
EXAMINATION TYPE: CT lumbar spine wo con DATE OF EXAM: 10/24/2024 8:43 AM COMPARISON: 12/26/2015 CLINICAL INDICATION: Female, 84 years old with history of Fall, Fall, c/o pelvic pain and low back pa in, pain TECHNIQUE: CT of the lumbar spine is performed on a spiral scan at 3 mm thick sections. Reconstructed images are performed in the coronal and sagittal planes. Contrast used: mL of , (none if empty) Oral contrast used: (none if empty) CT DLP: 228.3 mGycm, Automated exposure control for dose reduction was used. FINDINGS: T11-T12: No focal disc herniation or significant disc bulge is evident. No spinal canal stenosis or neural foraminal stenosis is present. T12-L1: Mild disc bulge is present. No focal disc herniation is evident. No spinal canal stenosis or neural foraminal stenosis is present. L1-L2: There may be some minimal retrolisthesis of L1 on L2. Mild disc space narrowing is present. An terior thecal sac flattening from residual disc bulge is present. No AP spinal canal stenosis present . Moderate bilateral foraminal narrowing is present L2-L3: There is loss of disc height is level. Vacuum disc phenomenon is present. Some endplate spurri ng is noted with mild anterior thecal sac compression. Ligamentum flavum laxity is present. Spinal ca nal stenosis is present. Severe bilateral foraminal narrowing is present. L3-L4: There is narrowing of disc height. Vacuum disc phenomenon is present. A grade 1 spondylolisthe sis of L3 anterior to L4 is present. Some ligament calcification may be present. Facet hypertrophy an d ligamentum flavum laxity is present. Some ligamentum flavum ligament calcification may be present. These are contributing to a severe foraminal stenosis. L4-L5: Loss of disc height is present. Facet hypertrophy and ligamentum flavum laxity has some latera l canal narrowing. Severe bilateral foraminal stenosis is present, greater on the left. L5-S1: There is a grade 1 retrolisthesis. Loss of disc height is present. Endplate spurring from L5 i s present. Severe foraminal stenosis is present greater on the right. No spinal canal stenosis is pre sent. No acute fractures identified. Vertebral body heights are preserved. There is a 4.3 cm abdominal aortic aneurysm present. IMPRESSION: 1. Spinal canal stenosis present L2-3, L3-4. 2. Multilevel severe foraminal stenosis discussed above. 3. Mild retrolisthesis of L5 on S1. Mild anterior listhesis of L3 on L4 is present. 4. No acute osseous abnormality radiographically apparent. 5. Abdominal aortic aneurysmal 4.3 cm. [facility], , 10/24/2024 8:58 AM
--- NOTE | 2024-10-24 09:05 | CT ---
EXAMINATION TYPE: CT pelvis wo con DATE OF EXAM: 10/24/2024 8:43 AM COMPARISON: 09/21/2024 CLINICAL INDICATION: Female, 84 years old with history of Fall, Fall, c/o pelvic pain and low back pa in TECHNIQUE: Contrast used: mL of , (none if empty) Oral contrast used: without Oral Contrast (none if empty) Axial images 3 mm thick sections. Reconstructed images in the coronal and sagittal plane. Bone window s are reviewed. FINDINGS: At the edge of the field of view there is a 4.3 cm abdominal aortic aneurysm which appears to termina te at the bifurcation. There is an anterior abdominal wall hernia containing loops of bowel. No obstr uction is identified. Multiple diverticular changes are within the sigmoid colon. No acute diverticul itis. Urinary bladder appears normal small bowel loops without oral contrast are unremarkable. There is a left hip pin present. Osseous structures appear intact. No acute fractures are identified. Sacroiliac joint degenerative changes are noted. IMPRESSION: 1. NO SUSPICIOUS ACUTE POSTTRAUMATIC CHANGES. 2. DIVERTICULOSIS WITHOUT ACUTE DIVERTICULITIS. 3. 4.3 CM DISTAL ABDOMINAL AORTIC ANEURYSM. [facility], , 10/24/2024 9:03 AM
[2024-10-24 09:11] LABS: ALT 16 U/L (4-34); African American GFR (CKD) >90 (>60 ml/min/1.73 sqM); Albumin 4.1 g/dL (3.5-5.0); Anion Gap 6 mmol/L; Blood Urea Nitrogen 13 mg/dL (7-17); Calcium 10.5 mg/dL (8.4-10.2); Carbon Dioxide 28 mmol/L (22-30); Chloride 100 mmol/L (98-107); Glucose 110 mg/dL (74-99); Magnesium 1.9 mg/dL (1.6-2.3); Non-African American GFR(CKD) 85 (>60 ml/min/1.73 sqM); Sodium 134 mmol/L (137-145); Total Bilirubin 1.2 mg/dL (0.2-1.3); Total Protein 6.8 g/dL (6.3-8.2)
[2024-10-24 09:24] VITALS: RESP 18
[2024-10-24 09:24] LABS: AST 30 U/L (14-36); Potassium 4.3 mmol/L (3.5-5.1)
[2024-10-24 09:25] LABS: Alkaline Phosphatase 93 U/L (38-126)
[2024-10-24 10:40] LABS: Appearance,Urine Cloudy (Clear); Bacteria,Urine Many /hpf; Bilirubin,Urine Negative (Negative); Blood,Urine Small (Negative); Color,Urine Yellow; Glucose,Urine (UA) Negative (Negative); Ketones,Urine Negative (Negative); Leukocyte Esterase,Urine Large (Negative); Mucus,Urine Occasional /hpf; Nitrite,Urine Positive (Negative); PH, Urine 5.5 (5.0-8.0); Protein,Urine Trace (Negative); RBC,Urine 25 /hpf (0-5); Squamous Epithelial Cell,Urine 2 /hpf (0-4); Urobilinogen,Urine <2.0 mg/dL (<2.0); WBC,Urine >182 /hpf (0-5)
[2024-10-24] MEDS: cefTRIAXone IN SWFI 1,000 MG/10 ML SYRINGE IVP STA (10:57)
[2024-10-24 11:15] VITALS: BP 138/76; PULSE 76; TEMP 98
== END 2024-10-24 11:15 | disposition home or self-care (01) ==
LOC: EC 07:56
DX: S20.211A Contusion of right front wall of thorax, initial encounter (principal); B96.20 Unspecified Escherichia coli [E. coli] as the cause of diseases classified elsewhere; M54.31 Sciatica, right side; N39.0 Urinary tract infection, site not specified; Z86.73 Personal history of transient ischemic attack (TIA), and cerebral infarction without residual deficits; M19.90 Unspecified osteoarthritis, unspecified site; Z85.118 Personal history of other malignant neoplasm of bronchus and lung; Z87.891 Personal history of nicotine dependence; Z88.8 Allergy status to other drugs, medicaments and biological substances; W18.30XA Fall on same level, unspecified, initial encounter
CPT/HCPCS: 99284; 96374; 96375 ×2; 36415; 80053; 83735; 85025; 81001; 87086; 87077; 87186; 71101; 72192; 72131; J0696; J2270; J1885

== ENCOUNTER 2024-10-26 16:04 | Observation (INO) | payer MEDICARE, BC ==
[2024-10-26 17:03] LABS: Basophils # (A) 0.01 10*3/uL (0.00-0.10); Basophils % (A) 0.1 %; HCT 32.2 % (37.2-46.3); HGB 10.3 g/dL (12.0-15.0); Lymphocytes # (A) 0.18 10*3/uL (0.90-5.00); Lymphocytes % (A) 1.1 %; MCH 31.9 pg (27.0-32.0); MCV 99.7 fL (80.0-97.0); Mean Platelet Volume 9.3 fL (9.5-12.2); Monocytes # (A) 0.18 10*3/uL (0.20-1.00); Monocytes % (A) 1.1 %; Neutrophils # (A) 15.53 10*3/uL (1.80-7.70); Neutrophils % (A) 97.1 %; Platelet Count 218 10*3/uL (140-440); RBC 3.23 10*6/uL (4.10-5.20); RDW 17.7 % (11.5-14.5)
[2024-10-26 17:20] LABS: ALT 18 U/L (4-34); AST 28 U/L (14-36); African American GFR (CKD) >90 (>60 ml/min/1.73 sqM); Albumin 4.2 g/dL (3.5-5.0); Alkaline Phosphatase 103 U/L (38-126); Anion Gap 7 mmol/L; Blood Urea Nitrogen 24 mg/dL (7-17); Calcium 10.7 mg/dL (8.4-10.2); Carbon Dioxide 28 mmol/L (22-30); Chloride 98 mmol/L (98-107); Glucose 162 mg/dL (74-99); Non-African American GFR(CKD) 82 (>60 ml/min/1.73 sqM); Potassium 4.4 mmol/L (3.5-5.1); Sodium 133 mmol/L (137-145); Total Bilirubin 0.7 mg/dL (0.2-1.3); Total Protein 6.8 g/dL (6.3-8.2)
[2024-10-26 17:21] LABS: INR 0.9 (<1.2); Prothrombin Time 10.4 sec (10.0-12.5)
--- NOTE | 2024-10-26 17:48 | XR ---
EXAMINATION TYPE: XR chest 2V DATE OF EXAM: 10/26/2024 5:15 PM COMPARISON: Chest radiographs from 10/24/2024 CLINICAL INDICATION: Female, 84 years old with history of Weakness; [facility] TECHNIQUE: XR chest 2V Frontal and lateral views of the chest. FINDINGS: Lungs/Pleura: There is no evidence of pleural effusion, focal consolidation, or pneumothorax. Pulmonary vascularity: Unremarkable. Heart/mediastinum: Cardiomediastinal silhouette is enlarged. Post aortic valve repair changes. Two l ead cardiac conduction device overlying the left hemithorax with lead tips projecting over the right ventricle and right atrium. Musculoskeletal: No acute osseous pathology. Midline sternotomy wires are noted. Other findings: None IMPRESSION: No acute cardiopulmonary disease/process. [facility], , 10/26/2024 5:45 PM
[2024-10-26 18:01] LABS: Appearance,Urine Clear (Clear); Bacteria,Urine Rare /hpf; Bilirubin,Urine Negative (Negative); Blood,Urine Negative (Negative); Color,Urine Yellow; Glucose,Urine (UA) Negative (Negative); Ketones,Urine Negative (Negative); Leukocyte Esterase,Urine Small (Negative); Mucus,Urine Rare /hpf; Nitrite,Urine Negative (Negative); PH, Urine 5.5 (5.0-8.0); Protein,Urine Negative (Negative); RBC,Urine 3 /hpf (0-5); Specific Gravity,Urine 1.024 (1.001-1.035); Squamous Epithelial Cell,Urine 1 /hpf (0-4); Urobilinogen,Urine <2.0 mg/dL (<2.0); WBC,Urine 27 /hpf (0-5)
--- NOTE | 2024-10-26 18:04 | CT ---
EXAMINATION TYPE: CT brain wo con DATE OF EXAM: 10/26/2024 5:39 PM COMPARISON: 08/09/2024. CLINICAL INDICATION: Female, 84 years old with history of confusion, blurred vision, Dizziness, confu kelly, blurred vision. UTI. TECHNIQUE: Brain: Axial CT images of the brain were obtained with coronal and sagittal reformats created and rev iewed. Contrast used: None. Oral contrast used: None. CT DLP: 1082.4 mGycm, Automated exposure control for dose reduction was used. FINDINGS: Brain: Extra-axial spaces: No abnormal extra-axial fluid collections. Ventricular system: Dilatation in proportion to cerebral atrophy. Cerebral parenchyma: Similar remote right caudate nucleus/thomas radiata injury and left basal gangli a injury compared to 08/10/2024. Cerebral atrophy. No acute intraparenchymal hemorrhage or mass effect . The ordaz-white junction is well differentiated. Scattered hypoattenuating areas are seen within th e white matter. Cerebellum: Unremarkable. Mass effect: No evidence of midline shift. Intracranial vasculature: Atherosclerotic calcifications of the intracranial vessels. Soft tissues: Normal. Calvarium/osseous structures: No depressed skull fracture. Paranasal sinuses and mastoid air cells: Mild scattered paranasal sinus disease. Visualized orbits: Bilateral aphakia IMPRESSION: 1. No acute intracranial process. 2. Nonspecific white matter changes, likely secondary to chronic small vessel ischemic disease. 3. Similar remote injuries to the right thomas radiata/recurrent nucleus and left basal ganglia. [facility], , 10/26/2024 6:02 PM
--- NOTE | 2024-10-26 18:10 | ED ---
Weakness HPI - General Chief complaint: Weakness Stated complaint: Weakness Time Seen by Provider: 10/26/24 16:10 Source: EMS Mode of arrival: EMS - History of Present Illness Initial comments: 84-year-old female with past medical history of A-fib, coronary artery disease, lung cancer not currently receiving any treatment who presents today after she had an appointment with Dr. Christiansen. She went into the office today for an appointment. She was having some confusion, speech and visual disturbance. She was currently under treatment for a urinary tract infection that was diagnosed on Wednesday. She was started on antibiotics and steroids. She has been taking M acrobid. Her symptoms worsened when she got home and she called the pulmonology office who recommended that she come into the emergency department. Patient states that she is having issues with her balance. Denies nausea or vomiting. No chest pain or difficulty breathing. No abdominal pain. Admits to occasional dysuria. Patient has suffered several falls however she was seen in the emergency department on Wednesday for her last fall. No numbness, tingling or weakness in her extremities. No other alleviating, precipitating or modifying factors - Related Data Home Medications Medication Instructions Recorded Confirmed Atorvastatin [Lipitor] 80 mg PO HS 01/03/16 10/26/24 Ascorbic Acid [Vitamin C] 1,000 mg PO DAILY 04/26/24 10/26/24 Cholecalciferol [Vitamin D3 (25 25 mcg PO DAILY 04/26/24 10/26/24 Mcg = 1000 Iu)] Cyanocobalamin [Vitamin B-12] 500 mcg PO DAILY 04/26/24 10/26/24 Famotidine/Ca Carb/Mag Hydrox 1 tab PO DAILY 04/26/24 10/26/24 [Pepcid Complete Tablet Chew] Psyllium Husk [Fiber Capsule] 0.4 gm PO DAILY 04/26/24 10/26/24 Quercetin 500 mg PO DAILY 04/26/24 10/26/24 Omeprazole [PriLOSEC] 20 mg PO BID 09/21/24 10/26/24 Previous Rx's Medication Instructions Recorded Aspirin 81 mg PO DAILY 30 Days #30 tab 06/24/23 Midodrine [ProAmatine] 5 mg PO AC-TID #90 tab 09/26/24 HYDROcodone/APAP 5-325MG [[place] 1 tab PO Q6HR PRN 3 Days #12 tab 10/24/24 5-325] predniSONE 50 mg PO DAILY 5 Days #5 tab 10/24/24 Cephalexin [Keflex] 500 mg PO Q6HR #6 cap 10/29/24 Divalproex [Depakote] 500 mg PO BID #60 tab 10/29/24 Spironolactone [Aldactone] 25 mg PO DAILY #30 tablet 10/29/24 Allergies Allergy/AdvReac Type Severity Reaction Status Date / Time lacosamide [From Vimpat] AdvReac AMS Verified 10/26/24 19:20 levetiracetam [From Keppra] AdvReac AMS Verified 10/26/24 19:20 Review of Systems ROS Statement: Those systems with pertinent positive or pertinent negative responses have been documented in the HPI. ROS Other: All systems not noted in ROS Statement are negative. Past Medical History Past Medical History: Atrial Fibrillation, Coronary Artery Disease (CAD), Cancer, COPD, CVA/TIA, GERD/Reflux, GI Bleed, Hyperlipidemia, Hypertension, Myocardial Infarction (IA), Osteoarthritis (OA), Vascular Disorder Additional Past Medical History / Comment(s): left lung CA, 07/2024 with chemo and radiation. 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, 02/2020 TIA, TIA 10/2022, carotid stenosis with L carotid endartectomy, pt states she has had irregular heart beat in past but cannot recall type, aortic stenosis/regurgitation, vertigo, balance issues-uses walker, back pain/disc problems, benign colon polyp,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 Last Myocardial Infarction Date:: 2000 History of Any Multi-Drug Resistant Organisms: None Reported Past Surgical History: AICD, Appendectomy, Bowel Resection, Cholecystectomy, Coronary Bypass/CABG, Heart Catheterization With Stent, Hernia Repair, Orthopedic Surgery Additional Past Surgical History / Comment(s): Arch studies, 2000 PCI with stents, 2002 CABG-3 vessel, 2002 AICD, AICD gen changes, DFTs, 2002 L carotid endartectomy, bowel resection for benign flat polyp, abdominal hernia repair, L hip fracture with surgery, L arm benign lesion removed, colonoscopies/polyps, ALEXIS Past Anesthesia/Blood Transfusion Reactions: No Reported Reaction, Motion Sickness Additional Past Anesthesia/Blood Transfusion Reaction / Comment(s): woke up during battery replacement in defibrillator Date of Last Stent Placement:: 2000 Type of Cardiac Device: AICD Device Placement Date:: 2002- [employer] Past Psychological History: Anxiety Smoking Status: Former smoker Past Alcohol Use History: None Reported Past Drug Use History: None Reported - Past Family History Sister(s) Family Medical History: Cancer Additional Family Medical History / Comment(s): Sister had breast/bladder cancers. Son(s) Family Medical History: Cancer Additional Family Medical History / Comment(s): pancreatic cancer Father Family Medical History: Cancer Additional Family Medical History / Comment(s): Bowel cancer. Mother Family Medical History: Cancer Additional Family Medical History / Comment(s): Mother had bowel cancer twice and 2nd time metastasized to her kidney. General Exam General appearance: alert, in no apparent distress Head exam: Present: atraumatic, normocephalic, normal inspection Eye exam: Present: normal appearance, PERRL, EOMI. Absent: scleral icterus, conjunctival injection, periorbital swelling ENT exam: Present: normal exam, mucous membranes moist Neck exam: Present: normal inspection. Absent: tenderness, meningismus, lymphadenopathy Respiratory exam: Present: normal lung sounds bilaterally. Absent: respiratory distress, wheezes, rales, rhonchi, stridor Cardiovascular Exam: Present: regular rate, normal rhythm, normal heart sounds. Absent: systolic murmur, diastolic murmur, rubs, gallop, clicks GI/Abdominal exam: Present: soft, normal bowel sounds. Absent: distended, tenderness, guarding, rebound, rigid Extremities exam: Present: normal inspection, full ROM, normal capillary refill. Absent: tenderness, pedal edema, joint swelling, calf tenderness Back exam: Present: normal inspection Neurological exam: Present: alert, oriented X3, CN II-XII intact Psychiatric exam: Present: normal affect, normal mood Skin exam: Present: warm, dry, intact, normal color. Absent: rash Course Vital Signs 10/26/24 10/26/24 10/26/24 16:08 18:52 20:00 Temperature 98.3 F 98.2 F Pulse Rate 76 72 71 Respiratory 16 16 16 Rate Blood Pressure 110/68 135/88 136/77 O2 Sat by Pulse 95 97 97 Oximetry Medical Decision Making - Medical Decision Making Was pt. sent in by a medical professional or institution (, PA, FOOD BROKER, urgent care, hospital, or usp...) When possible be specific @ -Patient sent in from a pulmonology office Did you speak to anyone other than the patient for history (EMS, parent, family, police, friend...)? What history was obtained from this source @ -No Did you review nursing and triage notes (agree or disagree)? Why? @ -I reviewed and agree with nursing and triage notes Were old charts reviewed (outside hosp., previous admission, EMS record, old EKG, old radiological studies, urgent care reports/EKG's, usp records)? Report findings @ -No old charts were reviewed Differential Diagnosis (chest pain, altered mental status, abdominal pain women, abdominal pain men, vaginal bleeding, weakness, fever, dyspnea, syncope, headache, dizziness, GI bleed, back pain, seizure, CVA, palpatations, mental health, musculoskeletal)? @ -Differential Altered Mental Status: Hypoglycemia, DKA, hypercapnia, ETOH, overdose, CO poisoning, trauma, myxedema coma, HTN encephalopathy, infection, encephalitis, psychosis, intercranial hemorrhage, hepatic encephalopathy, meningitis, CVA, this is not meant to be an all-inclusive list EKG interpreted by me (3pts min.). @ -Yes and demonstrates sinus rhythm with a rate of 71. AL interval 163. QRS 96. QTc of 390. No acute ST segment elevations or depressions. Right bundle branch block X-rays interpreted by me (1pt min.). @ -Yes which demonstrates no acute process CT interpreted by me (1pt min.). @ -US which demonstrates no acute process U/S interpreted by me (1pt. min.). @ -None done What testing was considered but not performed or refused? (CT, X-rays, U/S, labs)? Why? @ -None What meds were considered but not given or refused? Why? @ -None Did you discuss the management of the patient with other professionals (professionals i.e. , MARINA, FOOD BROKER, lab, RT, psych nurse, social organization professor, gear lapping machine operator, teacher, community cultural development officer, employment evaluator/case manager)? Give summary @ -Spoke with Dr. Pool who will admit the patient Was smoking cessation discussed for >3mins.? @ -No Was critical care preformed (if so, how long)? @ -No Were there social determinants of health that impacted care today? How? (Home lessness, low income, unemployed, alcoholism, drug addiction, transportation, low edu. Level, literacy, decrease access to med. care, halfway, rehab)? @ -No Was there de-escalation of care discussed even if they declined (Discuss DNR or withdrawal of care, Hospice)? DNR status @ -No What co-morbidities impacted this encounter? (DM, HTN, Smoking, COPD, CAD, Cancer, CVA, ARF, Chemo, Hep., AIDS, mental health diagnosis, sleep apnea, morbid obesity)? @ -Lung cancer Was patient admitted / discharged? Hospital course, mention meds given and route, prescriptions, significant lab abnormalities, going to OR and other pertinent info. @ -Upon arrival patient seen and evaluated in bed 24. Thorough history and physical exam was performed. IV was established laboratory studies are conducted. Chest x-ray and CT brain were performed. Results are discussed with the patient. She will be admitted. Spoke with Dr. Chaves for the admissionash Undiagnosed new problem with uncertain prognosis? @ -No Drug Therapy requiring intensive monitoring for toxicity (Heparin, Nitro, Insulin, Cardizem)? @ -No Were any procedures done? @ -No Diagnosis/symptom? @ -Acute encephalopathy, generalized weakness, history of lung cancer Acute, or Chronic, or Acute on Chronic? @ -Acute Uncomplicated (without systemic symptoms) or Complicated (systemic symptoms)? @ -Complicated Side effects of treatment? @ -No Exacerbation, Progression, or Severe Exacerbation? @ -No Poses a threat to life or bodily function? How? (Chest pain, USA, IA, pneumonia, PE, COPD, DKA, ARF, appy, cholecystitis, CVA, Diverticulitis, Homicidal, Suicidal, threat to staff... and all critical care pts) @ -No - Lab Data Result diagrams: 10/27/24 04:13 10/27/24 04:13 Lab Results 10/26/24 10/26/24 10/26/24 Range/Units 16:28 16:54 16:54 WBC 16.00 H (4.50-10.00) 10*3/uL RBC 3.23 L (4.10-5.20) 10*6/uL Hgb 10.3 L (12.0-15.0) g/dL Hct 32.2 L (37.2-46.3) % MCV 99.7 H (80.0-97.0) fL MCH 31.9 (27.0-32.0) pg MCHC 32.0 (32.0-37.0) g/dL Plt Count 218 (140-440) 10*3/uL MPV 9.3 L (9.5-12.2) fL Immature Gran % (Auto) 0.6 % Neutrophils % 97.1 % Lymphocytes % 1.1 % Monocytes % 1.1 % Eosinophils % 0.0 % Basophils % 0.1 % Immature Gran # 0.10 H (0.00-0.04) 10*3/uL Neutrophils # 15.53 H (1.80-7.70) 10*3/uL Lymphocytes # 0.18 L (0.90-5.00) 10*3/uL Monocytes # 0.18 L (0.20-1.00) 10*3/uL Eosinophils # 0.00 L (0.04-0.35) 10*3/uL Basophils # 0.01 (0.00-0.10) 10*3/uL PT 10.4 (10.0-12.5) sec INR 0.9 (<1.2) APTT 22.0 (22.0-30.0) sec Sodium (137-145) mmol/L Potassium (3.5-5.1) mmol/L Chloride (98-107) mmol/L Carbon Dioxide (22-30) mmol/L Anion Gap mmol/L BUN (7-17) mg/dL Creatinine (0.52-1.04) mg/dL Est GFR (CKD-EPI)AfAm (>60 ml/min/1.73 sqM) Est GFR (CKD-EPI)NonAf (>60 ml/min/1.73 sqM) Glucose (74-99) mg/dL Plasma Lactic Acid Ezequiel (0.7-2.0) mmol/L Calcium (8.4-10.2) mg/dL Magnesium (1.6-2.3) mg/dL Total Bilirubin (0.2-1.3) mg/dL AST (14-36) U/L ALT (4-34) U/L Alkaline Phosphatase (38-126) U/L Troponin I (0.000-0.034) ng/mL Total Protein (6.3-8.2) g/dL Albumin (3.5-5.0) g/dL Urine Color Yellow Urine Appearance Clear (Clear) Urine pH 5.5 (5.0-8.0) Ur Specific [place] 1.024 (1.001-1.035) Urine Protein Negative (Negative) Urine Glucose (UA) Negative (Negative) Urine Ketones Negative (Negative) Urine Blood Negative (Negative) Urine Nitrite Negative (Negative) Urine Bilirubin Negative (Negative) Urine Urobilinogen <2.0 (<2.0) mg/dL Ur Leukocyte Esterase Small H (Negative) Urine RBC 3 (0-5) /hpf Urine WBC 27 H (0-5) /hpf Ur Squamous Epith Cells 1 (0-4) /hpf Urine Bacteria Rare H (None) /hpf Urine Mucus Rare H (None) /hpf 10/26/24 10/26/24 10/26/24 Range/Units 16:54 16:54 16:54 WBC (4.50-10.00) 10*3/uL RBC (4.10-5.20) 10*6/uL Hgb (12.0-15.0) g/dL Hct (37.2-46.3) % MCV (80.0-97.0) fL MCH (27.0-32.0) pg MCHC (32.0-37.0) g/dL Plt Count (140-440) 10*3/uL MPV (9.5-12.2) fL Immature Gran % (Auto) % Neutrophils % % Lymphocytes % % Monocytes % % Eosinophils % % Basophils % % Immature Gran # (0.00-0.04) 10*3/uL Neutrophils # (1.80-7.70) 10*3/uL Lymphocytes # (0.90-5.00) 10*3/uL Monocytes # (0.20-1.00) 10*3/uL Eosinophils # (0.04-0.35) 10*3/uL Basophils # (0.00-0.10) 10*3/uL PT (10.0-12.5) sec INR (<1.2) APTT (22.0-30.0) sec Sodium 133 L (137-145) mmol/L Potassium 4.4 (3.5-5.1) mmol/L Chloride 98 (98-107) mmol/L Carbon Dioxide 28 (22-30) mmol/L Anion Gap 7 mmol/L BUN 24 H (7-17) mg/dL Creatinine 0.67 (0.52-1.04) mg/dL Est GFR (CKD-EPI)AfAm >90 (>60 ml/min/1.73 sqM) Est GFR (CKD-EPI)NonAf 82 (>60 ml/min/1.73 sqM) Glucose 162 H (74-99) mg/dL Plasma Lactic Acid Ezequiel 2.0 (0.7-2.0) mmol/L Calcium 10.7 H (8.4-10.2) mg/dL Magnesium 2.0 (1.6-2.3) mg/dL Total Bilirubin 0.7 (0.2-1.3) mg/dL AST 28 (14-36) U/L ALT 18 (4-34) U/L Alkaline Phosphatase 103 (38-126) U/L Troponin I <0.012 (0.000-0.034) ng/mL Total Protein 6.8 (6.3-8.2) g/dL Albumin 4.2 (3.5-5.0) g/dL Urine Color Urine Appearance (Clear) Urine pH (5.0-8.0) Ur Specific [place] (1.001-1.035) Urine Protein (Negative) Urine Glucose (UA) (Negative) Urine Ketones (Negative) Urine Blood (Negative) Urine Nitrite (Negative) Urine Bilirubin (Negative) Urine Urobilinogen (<2.0) mg/dL Ur Leukocyte Esterase (Negative) Urine RBC (0-5) /hpf Urine WBC (0-5) /hpf Ur Squamous Epith Cells (0-4) /hpf Urine Bacteria (None) /hpf Urine Mucus (None) /hpf Disposition Clinical Impression: 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
[2024-10-26] MEDS ORDERED: NALOXONE 0.4 MG/ML 1 ML VIAL IV PRN (19:35)
[2024-10-26] MEDS: ATORVASTATIN 80 MG TAB PO SCH (20:18)
[2024-10-26] MEDS: cefTRIAXone IN SWFI 1,000 MG/10 ML SYRINGE IVP ONE (20:18)
[2024-10-26] MEDS: SODIUM CHLORIDE 0.9% 1,000 ML IV SCH (20:42)
[2024-10-26] MEDS: ENOXAPARIN 40 MG/0.4 ML SYRINGE SQ SCH (22:30)
[2024-10-26] MEDS: HYDROcodone/APAP 5-325MG 1 EACH TAB PO PRN (22:30)
--- NOTE | 2024-10-26 22:35 | P.HPIM ---
History of Present Illness H&P Date: 10/26/24 Chief Complaint: Dizziness Pleasant 84 year old female with medical history of atrial fibrillation, coronary artery disease with prior CABG and PCI, AICD, carotid artery disease, COPD, hypertension, hyperlipidemia, lung cancer with chemoradiation. Patient discontinued her radiation and chemo while she received her of the treatment because she could not lay on the table because of pain in the right hip. Patient is going to seen her f preparation operator Dr. Perez. When she was going home she got home that she felt a bit dizzy. Repeat confused. She been having some burning in the urine. Intermittently. No fever no chills.. Appetite is fair. No shortness of breath. Has been feeling weak. Sometimes unsteady. Has decided to come in. Does use a walker Review of systems: GEN.: Tired, EYES: None HEENT: None NECK: None RESPIRATORY: None CARDIOVASCULAR: None GASTROINTESTINAL: None GENITOURINARY: None MUSCULOSKELETAL: [Some joint pain LYMPHATICS: None HEMATOLOGICAL: None PSYCHIATRY: None NEUROLOGICAL: [No focal symptoms. Charity does get dizzy. Lightheaded. Sometimes unsteady on her gait. Does use a walker Social history: Lives alone. Uses a walker. Started smoking in 1969. And finally quit in 2021. Smoked for 60 years. No alcohol. On examination: VITAL SIGNS: 98.4, 79, 16, 146 x 81, 96% room GENERAL APPEARANCE: BMI 22.1, reclining bed awake a bit tired appearing HEENT: Normal external appearance of nose and ear. Oral cavity normal. Alopecia EYES: Pupils equal. Conjunctiva pale.. NECK: JVD not raised. Mass not palpable. RESPIRATORY: Respiratory effort normal. Lungs clear to auscultation. CARDIOVASCULAR: First and second sounds normal. No edema. ABDOMEN: Soft. Liver and spleen not palpable. No tenderness. No mass palpable. PSYCHIATRY: Alert and oriented x3. Mood and affect normal Musculoskeletal: OA INVESTIGATIONS, reviewed in the clinical context: October 26: White count 16 hemoglobin 10.3 platelets 218 sodium 133 potassium 4.4 BUN 24 creatinine 0.67 UA positive for leukoesterase, WBC EKG tracing personally reviewed by me-normal sinus rhythm. Some ST-T wave changes. Chest x-ray film personally reviewed by me-pacemaker. Cardiomegaly CT brain: Chronic changes Recent examinations Lumbar spine x-ray: No fracture. Severe DJD changes. Fusion. CT abdomen pelvis: Thoracoabdominal infrarenal abdominal arctic aneurysm. Dive rticulosis. Assessment and plan: - Patient may have had episodes of dizziness. Slight confusion. She does have urinary symptoms. But does not seem to have a roaring UTI. Need to rule out other causes of the presentation including arrhythmia. Get a pacemaker check. - AICD Consult cardiology - Acute UTI Received 1 dose of IV ceftriaxone in the ER. Start Keflex from tomorrow -Fall with lower back pain with focal tenderness adjacent to the mid lumbar spine. No fracture. K-pad. -Limited stage small cell lung cancer. Received chemotherapy and radiation treatment. Former August 02 of this year and radiation treatment on August 25 of this year. Because patient has trouble laying on the table because of right hip pain. Has decided against further chemo and radiation treatment. Being followed by Dr. Wilfredo Donohue -Mild dysphagia from presbyesophagus Fluoroscopy with barium swallow done recently Soft diet -Hyperlipidemia Lipitor -Advance degenerative disc disease, multiple joints Pain medications -Coronary artery disease with prior CABG and PCI Aspirin. Lipitor -History of aortic stenosis status post TAVR -COPD, controlled Bronchodilators as needed -Chemotherapy-induced pancytopenia Follow CBC - Presbyesophagus,-barium swallow -Anemia of chronic disease from underlying malignancy -Chronic congestive heart failure systolic dysfunction with a EF of 40 to 45% Aldactone 12.5 mg a day Thoracoabdominal and infrarenal abdominal aortic aneurysms follows with Dr. Gross on an outpatient basis -DNR Orthostatic. 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 Resume home medications. Past Medical History Past Medical History: Atrial Fibrillation, Coronary Artery Disease (CAD), Cancer, COPD, CVA/TIA, GERD/Reflux, GI Bleed, Hyperlipidemia, Hypertension, Myocardial Infarction (CA), Osteoarthritis (OA), Vascular Disorder Additional Past Medical History / Comment(s): left lung CA, 07/2024 with chemo and radiation. 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, 02/2020 TIA, TIA 10/2022, carotid stenosis with L carotid endartectomy, pt states she has had irregular heart beat in past but cannot recall type, aortic stenosis/regurgitation, vertigo, balance issues-uses walker, back pain/disc problems, benign colon polyp,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 Last Myocardial Infarction Date:: 2000 History of Any Multi-Drug Resistant Organisms: None Reported Past Surgical History: AICD, Appendectomy, Bowel Resection, Cholecystectomy, Coronary Bypass/CABG, Heart Catheterization With Stent, Hernia Repair, Orthopedic Surgery Additional Past Surgical History / Comment(s): Arch studies, 2000 PCI with stents, 2002 CABG-3 vessel, 2002 AICD, AICD gen changes, DFTs, 2002 L carotid endartectomy, bowel resection for benign flat polyp, abdominal hernia repair, L hip fracture with surgery, L arm benign lesion removed, colonoscopies/polyps, ALEXIS Past Anesthesia/Blood Transfusion Reactions: No Reported Reaction, Motion Sickness Additional Past Anesthesia/Blood Transfusion Reaction / Comment(s): woke up during battery replacement in defibrillator Date of Last Stent Placement:: 2000 Type of Cardiac Device: AICD Device Placement Date:: 2002- [employer] Past Psychological History: Anxiety Smoking Status: Former smoker Past Alcohol Use History: None Reported Past Drug Use History: None Reported - Past Family History Sister(s) Family Medical History: Cancer Additional Family Medical History / Comment(s): Sister had breast/bladder cancers. Son(s) Family Medical History: Cancer Additional Family Medical History / Comment(s): pancreatic cancer Father Family Medical History: Cancer Additional Family Medical History / Comment(s): Bowel cancer. Mother Family Medical History: Cancer Additional Family Medical History / Comment(s): Mother had bowel cancer twice and 2nd time metastasized to her kidney. Medications and Allergies Home Medications Medication Instructions Recorded Confirmed Type Atorvastatin [Lipitor] 80 mg PO HS 01/03/16 10/26/24 History Aspirin 81 mg PO DAILY 30 Days #30 tab 06/24/23 10/26/24 Rx Ascorbic Acid [Vitamin C] 1,000 mg PO DAILY 04/26/24 10/26/24 History Cholecalciferol [Vitamin D3 (25 25 mcg PO DAILY 04/26/24 10/26/24 History Mcg = 1000 Iu)] Cyanocobalamin [Vitamin B-12] 500 mcg PO DAILY 04/26/24 10/26/24 History Famotidine/Ca Carb/Mag Hydrox 1 tab PO DAILY 04/26/24 10/26/24 History [Pepcid Complete Tablet Chew] Psyllium Husk [Fiber Capsule] 0.4 gm PO DAILY 04/26/24 10/26/24 History Quercetin 500 mg PO DAILY 04/26/24 10/26/24 History Zinc Sulfate [Orazinc] 25 mg PO DAILY 04/26/24 10/26/24 History Omeprazole [PriLOSEC] 20 mg PO BID 09/21/24 10/26/24 History Midodrine [ProAmatine] 5 mg PO AC-TID #90 tab 09/26/24 10/26/24 Rx HYDROcodone/APAP 5-325MG [[place] 1 tab PO Q6HR PRN 3 Days #12 tab 10/24/24 10/26/24 Rx 5-325] Nitrofurantoin Monohyd/M-Cryst 100 mg PO Q12HR 5 Days #10 cap 10/24/24 10/26/24 Rx [Macrobid] predniSONE 50 mg PO DAILY 5 Days #5 tab 10/24/24 10/26/24 Rx Allergies Allergy/AdvReac Type Severity Reaction Status Date / Time lacosamide [From Vimpat] AdvReac AMS Verified 10/26/24 19:20 levetiracetam [From Keppra] AdvReac AMS Verified 10/26/24 19:20 Physical Exam Vitals: Vital Signs Temp Pulse Pulse Resp BP BP Pulse Ox 10/26/24 22:08 98.4 F 79 16 146/81 96 10/26/24 20:00 71 16 136/77 97 10/26/24 18:52 98.2 F 72 16 135/88 97 10/26/24 16:08 98.3 F 76 16 110/68 95 Intake and Output 10/26/24 10/26/24 10/26/24 06:59 14:59 22:59 Other: Weight 58.513 kg Results CBC & Chem 7: 10/26/24 16:54 10/26/24 16:54 Labs: Abnormal Lab Results - Last 24 Hours (Table) 10/26/24 10/26/24 10/26/24 Range/Units 16:28 16:54 16:54 WBC 16.00 H (4.50-10.00) 10*3/uL RBC 3.23 L (4.10-5.20) 10*6/uL Hgb 10.3 L (12.0-15.0) g/dL Hct 32.2 L (37.2-46.3) % MCV 99.7 H (80.0-97.0) fL MPV 9.3 L (9.5-12.2) fL Immature Gran # 0.10 H (0.00-0.04) 10*3/uL Neutrophils # 15.53 H (1.80-7.70) 10*3/uL Lymphocytes # 0.18 L (0.90-5.00) 10*3/uL Monocytes # 0.18 L (0.20-1.00) 10*3/uL Eosinophils # 0.00 L (0.04-0.35) 10*3/uL Sodium 133 L (137-145) mmol/L BUN 24 H (7-17) mg/dL Glucose 162 H (74-99) mg/dL Calcium 10.7 H (8.4-10.2) mg/dL Ur Leukocyte Esterase Small H (Negative) Urine WBC 27 H (0-5) /hpf Urine Bacteria Rare H (None) /hpf Urine Mucus Rare H (None) /hpf
[2024-10-27] MEDS: ACETAMINOPHEN TAB 325 MG TAB PO PRN (01:46)
[2024-10-27 08:11] LABS: Basophils # (A) 0.02 X 10*3/uL (0.00-0.10); Basophils % (A) 0.2 %; Eosinophils # (A) 0.02 X 10*3/uL (0.04-0.35); Eosinophils % (A) 0.2 %; HCT 32.3 % (37.2-46.3); HGB 10.1 g/dL (12.0-15.0); Lymphocytes # (A) 0.81 X 10*3/uL (0.90-5.00); Lymphocytes % (A) 8.6 %; MCH 31.7 pg (27.0-32.0); MCHC 31.3 g/dL (32.0-37.0); MCV 101.3 FL (80.0-97.0); Mean Platelet Volume 9.8 FL (9.5-12.2); Monocytes # (A) 0.84 X 10*3/uL (0.20-1.00); Monocytes % (A) 8.9 %; NRBC Per 100 WBC 0 X 10*3/uL (0.00-0.01); Neutrophils # (A) 7.73 X 10*3/uL (1.80-7.70); Neutrophils % (A) 81.7 %; Platelet Count 207 X 10*3/uL (140-440); RBC 3.19 X 10*6/uL (4.10-5.20); RDW 17.7 % (11.5-14.5); WBC 9.46 X 10*3/uL (4.50-10.00)
[2024-10-27 08:20] LABS: BUN/Creat Ratio 28.83 Ratio (12.00-20.00); Blood Urea Nitrogen 17.3 mg/dL (9.0-27.0); Calcium 10.1 mg/dL (8.7-10.3); Carbon Dioxide 26.7 mmol/L (21.6-31.8); Chloride 101 mmol/L (96-109); Glucose 99 mg/dL (70-110); Potassium 4.4 mmol/L (3.5-5.5); Sodium 137 mmol/L (135-145)
[2024-10-27] MEDS: CHOLECALCIFEROL 25 MCG (1000 IU) TABLET PO SCH (08:57)
[2024-10-27] MEDS: ASCORBIC ACID 500 MG TAB PO SCH (08:57)
[2024-10-27] MEDS: PANTOPRAZOLE 40 MG TABLET PO SCH (08:57)
[2024-10-27] MEDS: predniSONE 50 MG TAB PO SCH (08:57)
[2024-10-27] MEDS: CYANOCOBALAMIN 500 MCG TAB PO SCH (08:57)
[2024-10-27] MEDS: SPIRONOLACTONE 25 MG TAB PO SCH (08:57)
[2024-10-27] MEDS: CEPHALEXIN 500 MG CAP PO SCH (08:57)
[2024-10-27] MEDS: ASPIRIN 81 MG PO SCH (08:57)
[2024-10-27] MEDS ORDERED: ZINC SULFATE 25 MG PO SCH (09:00)
[2024-10-27] MEDS ORDERED: NON FORMULARY DRUG (Famotidine/Ca Carb/Mag Hydrox [Pepcid Complete Tablet Chew] 1 EACH Tab PO SCH (09:00)
[2024-10-27] MEDS ORDERED: NON FORMULARY DRUG (Quercetin [Quercetin] 500 MG Capsule) PO SCH (09:00)
[2024-10-27] MEDS: MIDODRINE 5 MG TAB PO SCH (09:08)
--- NOTE | 2024-10-27 10:20 | P.CNNES ---
History of Present Illness Consult date: 10/27/24 Requesting physician: Isamar Palacios Reason for Consult: dizziness and confusion History of Present Illness: This is an 84-year-old woman with history of stroke, left lung cancer, recurrent urinary tract infection who presents emergency department because of confusion dizziness. And feeling unsteady walking. She stated that yesterday in the early afternoon. She noticed that she was disoriented, felt dizzy and felt u nsteady walking. She was following up with Dr. Mclain her organizational development specialist who notified her according the patient that this could have been due to her recurrent urinary tract infection. She had a recent urinary tract infection and she was on antibiotic and it was felt it was not completely r esolved. Today's she feels her symptoms is drastically better. She denies any focal weakness, numbness, any speech difficulty. Her symptoms yesterday lasted for a few hours. Was on aspirin. She does have a defibrillator. She stated in the past for her lung cancer she was on chemotherapy and radiation and stopped maybe a month ago since she could not tolerate it. Patient did state that she h ad a few falls in which she lost her balance. Any loss of conscious. Denies any history of seizure. The note it seems that patient had some confusion, speech and visual disturbance and she had recent urinary tract infection that was diagnosed on Wednesday and was started on antibiotic and steroid and she has been on Macrobid. Some of the work-up during this hospital visit consisted of: I reviewed the lab workup. Urinalysis is leukocyte Estrace small, urine white blood cells 27. CT of the head and is reported as no acute intracranial process. Nonspecific white matter changes. Similar remote injuries to the right coronary radiata/recurrent nucleus in the left basal ganglia. I personally reviewed the CT and I agree the patient has old lacunar stroke. Review of Systems As per HPI. Past Medical History Past Medical History: Atrial Fibrillation, Coronary Artery Disease (CAD), Cancer, COPD, CVA/TIA, GERD/Reflux, GI Bleed, Hyperlipidemia, Hypertension, Myocardial Infarction (CT), Osteoarthritis (OA), Vascular Disorder Additional Past Medical History / Comment(s): left lung CA, 07/2024 with chemo and radiation. 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, 02/2020 TIA, TIA 10/2022, carotid stenosis with L carotid endartectomy, pt states she has had irregular heart beat in past but cannot recall type, aortic stenosis/regurgitation, vertigo, balance issues-uses walker, back pain/disc problems, benign colon polyp,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 Last Myocardial Infarction Date:: 2000 History of Any Multi-Drug Resistant Organisms: None Reported Past Surgical History: AICD, Appendectomy, Bowel Resection, Cholecystectomy, Coronary Bypass/CABG, Heart Catheterization With Stent, Hernia Repair, Orthopedic Surgery Additional Past Surgical History / Comment(s): Arch studies, 2000 PCI with stents, 2002 CABG-3 vessel, 2002 AICD, AICD gen changes, DFTs, 2002 L carotid endartectomy, bowel resection for benign flat polyp, abdominal hernia repair, L hip fracture with surgery, L arm benign lesion removed, colonoscopies/polyps, ALEXIS Past Anesthesia/Blood Transfusion Reactions: No Reported Reaction, Motion Sickness Additional Past Anesthesia/Blood Transfusion Reaction / Comment(s): woke up during battery replacement in defibrillator Date of Last Stent Placement:: 2000 Type of Cardiac Device: AICD Device Placement Date:: 2002- [place] Past Psychological History: Anxiety Smoking Status: Former smoker Past Alcohol Use History: None Reported Past Drug Use History: None Reported - Past Family History Sister(s) Family Medical History: Cancer Additional Family Medical History / Comment(s): Sister had breast/bladder cancers. Son(s) Family Medical History: Cancer Additional Family Medical History / Comment(s): pancreatic cancer Father Family Medical History: Cancer Additional Family Medical History / Comment(s): Bowel cancer. Mother Family Medical History: Cancer Additional Family Medical History / Comment(s): Mother had bowel cancer twice and 2nd time metastasized to her kidney. Medications and Allergies Home Medications Medication Instructions Recorded Confirmed Type Atorvastatin [Lipitor] 80 mg PO HS 01/03/16 10/26/24 History Aspirin 81 mg PO DAILY 30 Days #30 tab 06/24/23 10/26/24 Rx Ascorbic Acid [Vitamin C] 1,000 mg PO DAILY 04/26/24 10/26/24 History Cholecalciferol [Vitamin D3 (25 25 mcg PO DAILY 04/26/24 10/26/24 History Mcg = 1000 Iu)] Cyanocobalamin [Vitamin B-12] 500 mcg PO DAILY 04/26/24 10/26/24 History Famotidine/Ca Carb/Mag Hydrox 1 tab PO DAILY 04/26/24 10/26/24 History [Pepcid Complete Tablet Chew] Psyllium Husk [Fiber Capsule] 0.4 gm PO DAILY 04/26/24 10/26/24 History Quercetin 500 mg PO DAILY 04/26/24 10/26/24 History Zinc Sulfate [Orazinc] 25 mg PO DAILY 04/26/24 10/26/24 History Omeprazole [PriLOSEC] 20 mg PO BID 09/21/24 10/26/24 History Midodrine [ProAmatine] 5 mg PO AC-TID #90 tab 09/26/24 10/26/24 Rx HYDROcodone/APAP 5-325MG [[place] 1 tab PO Q6HR PRN 3 Days #12 tab 10/24/24 10/26/24 Rx 5-325] Nitrofurantoin Monohyd/M-Cryst 100 mg PO Q12HR 5 Days #10 cap 10/24/24 10/26/24 Rx [Macrobid] predniSONE 50 mg PO DAILY 5 Days #5 tab 10/24/24 10/26/24 Rx Allergies Allergy/AdvReac Type Severity Reaction Status Date / Time lacosamide [From Vimpat] AdvReac AMS Verified 10/26/24 19:20 levetiracetam [From Keppra] AdvReac AMS Verified 10/26/24 19:20 Physical Examination - Vital Signs Vital Signs: Vital Signs Temp Pulse Pulse Resp BP BP Pulse Ox 10/27/24 07:03 98.3 F 74 20 138/83 95 10/27/24 01:12 98.6 F 79 16 125/70 93 L 10/26/24 22:08 98.4 F 79 16 146/81 96 10/26/24 20:00 71 16 136/77 97 10/26/24 18:52 98.2 F 72 16 135/88 97 10/26/24 16:08 98.3 F 76 16 110/68 95 Intake and Output 10/26/24 10/27/24 10/27/24 22:59 06:59 14:59 Other: Voiding Method Toilet Toilet Diaper Diaper Incontinent Incontinent # Voids 2 Weight 63.5 kg GENERAL: The patient is lying in bed and is not in acute distress. NEUROLOGICAL: Higher mental function: The patient is awake, alert, oriented to self, place and time. Patient is following commands. No aphasia and no neglect. Cranial nerves: The pupils are round, equal and reactive to light and accommodation. Visual melendez are full to confrontation throughout. Extraocular movement is intact no nystagmus is noted. Facial sensation is normal to touch throughout. The facial strength is normal throughout. Hearing is mildly to moderately decreased bilaterally to hand rub. Tongue is midline and moved [id number] without any difficulty. No dysarthria is noted. Shoulder shrug is normal bilaterally. Motor: The strength is 5 over 5 throughout. Normal tone and bulk. Cerebellum: Normal finger to nose bilaterally. Sensation: Sensation is normal to touch throughout. Plantars are mute bilaterally. Results - Laboratory Findings CBC and BMP: 10/27/24 04:13 10/27/24 04:13 Abnormal Lab Findings: Abnormal Labs 10/26/24 10/26/24 10/26/24 16:28 16:54 16:54 WBC 16.00 H RBC 3.23 L Hgb 10.3 L Hct 32.2 L MCV 99.7 H MCHC RDW MPV 9.3 L Immature Gran # 0.10 H Neutrophils # 15.53 H Lymphocytes # 0.18 L Monocytes # 0.18 L Eosinophils # 0.00 L Sodium 133 L BUN 24 H BUN/Creatinine Ratio Glucose 162 H Calcium 10.7 H Ur Leukocyte Esterase Small H Urine WBC 27 H Urine Bacteria Rare H Urine Mucus Rare H 10/27/24 10/27/24 04:13 04:13 WBC RBC 3.19 L Hgb 10.1 L Hct 32.3 L MCV 101.3 H MCHC 31.3 L RDW 17.7 H MPV Immature Gran # Neutrophils # 7.73 H Lymphocytes # 0.81 L Monocytes # Eosinophils # 0.02 L Sodium BUN BUN/Creatinine Ratio 28.83 H Glucose Calcium Ur Leukocyte Esterase Urine WBC Urine Bacteria Urine Mucus Assessment and Plan Assessment: This is an 84-year-old woman with a history of strokes, left lung cancer, recurrent urinary tract infection and she had recent urinary tract infection and was on antibiotic and steroid yesterday had episode of confusion, visual disturbance, unsteady gait and dizzy. She feels back to baseline. Altered Mental status with visual disturbance and unsteady gait possible due to her recent urinary tract infection. Also metabolic encephalopathy. Rule out seizure--mentation is back to baseline. Recent UTI Patient had previous transient episode of dysarthria and dizziness and there was a concern for possible TIA Return for questionable seizures especially with recurrent numbness tingling but patient did not take Vimpat in the past. She had a a routine EEG and there was concern for rhythmicity in the past but the prolonged EEG 2-1/2 hours was negative for any seizure or discharges. History of old strokes (lacunar) History of left lung cancer and was on radiation and chemotherapy and stopped per her grand-daughter about a month ago since could not tolerate them S/P Defibrillator History of recurrent UTI Plan: I ordered a routine EEG since patient had confusion and recurrent falls to rule out any underlying active seizure or discharges. As stated earlier in my impression, Also I was concerned in the past about a seizure since the patient was having frequent numbness and tingling in the arms and legs and in the past I started the patient on Keppra but she had side effects so I changed to Vimpat but the patient was not taking the medication. She had a routine EEG and there is concerning for the rhythmicity for seizure but then afterwards she had a prolonged EEG and there was no seizure or discharges. Cannot obtain MRI since patient has a defibrillator. Can consider MRI of the brain with and without as an outpatient the patient continues to have further episodes of confusion or new neurological issues especially with history of lung cancer to rule out any brain mets. Ordered ammonia level Patient is resumed on her home dose of aspirin 81 mg daily. She is on Lipitor 80 mg nightly. There was started by the ED physician for her urinary tract infection as well as on prednisone Will defer the rest of the medical management to the primary other specialist. The plan is discussed with patient and her grand-daughter who is at bedside. Her preliminary EEG: showed discharges over the left parietal. No seizure. In the past, patient could not tolerate Keppra or Vimpat. Therefore I started the patient on Depakote 500 mg twice a day. Seizure precautions seizure pads For the [facility] because of the seizure, to avoid driving for 6 months until seizure-free, avoid heights, avoid swimming unassisted or heavy machinery Recommend the patient to follow-up with a neurologist as an outpatient within 2 to 3 weeks. I have updated the patient and her grandchild (Tanisha) who is the caregiver. Dr. Reveles will resume neurology service tomorrow a.m. if needed otherwise no additional neurological workup. Time with Patient: Greater than 30
--- NOTE | 2024-10-27 13:09 | P.CRDCN ---
History of Present Illness History of present illness: HISTORY OF PRESENT ILLNESS: This is a 84-year-old female with a past medical history significant for coronary artery disease with previous CABG, aortic stenosis with previous TAVR, ascending aortic aneurysm, TIA, ischemic cardiomyopathy, carotid endarterectomy, lung cancer, and hyperlipidemia. Patient follows in the office with Dr. Mo. We have been asked to see the patient in consultation for pacemaker check. Patient examined at the bedside. Patient presented to the hospital with a chief complaint of dizziness and confusion. She denied having any chest pain or pressure. She denied having any shortness of breath. Vital signs are stable. Patient states that she feels back to her baseline and is hoping to be discharged home soon. DIAGNOSTICS: - EKG reveals sinus mechanism with nonspecific ST-T wave changes. - Chest xray negative for acute process - Laboratory data: WBC 9.46. Hemoglobin 10.1. Platelet count 207. Sodium 137. Potassium 4.4. BUN 17. Creatinine 0.6. Troponin negative x 1. - Current home cardiac medications include Lipitor 40 mg at night, aspirin 81 mg daily, midodrine 5 mg 3 times daily. - Most recent echocardiogram obtained in August 2024 revealed ejection fraction 40 to 45%, medium sized akinetic area of inferior and inferior lateral wall from the mid wall to the apex, small akinetic area of the lateral wall at the apex, transcatheter AV prosthesis with normal function, ascending aorta is aneurysmal, mild MR, mild to moderate TR -Patient underwent carotid Doppler in the office in August 2024 revealing less than 50% stenosis bilaterally REVIEW OF SYSTEMS: At the time of my exam: CONSTITUTIONAL: Denies fever or chills. HEENT: Denies blurred vision, vision changes, or eye pain. Denies hemoptysis CARDIOVASCULAR: Denies chest pain. Denies orthopnea. Denies PND. Denies palpitations RESPIRATORY: Denies shortness of breath. GASTROINTESTINAL: Denies abdominal pain. Denies nausea or vomiting. HEMATOLOGIC: Denies bleeding disorders. GENITOURINARY: Denies any blood in urine. SKIN: Denies pruitis. Denies rash. PHYSICAL EXAM: VITAL SIGNS: Reviewed. GENERAL: Well-developed in no acute distress. HEENT: Head is normocephalic. Pupils are equal, round. Sclerae anicteric. Mucous membranes of the mouth are moist. Neck supple. No JVD or thyromegaly LUNGS: Respirations even and unlabored. Lungs essentially clear to auscultation bilaterally. HEART: Regular rate and rhythm. S1 and S2 heard. ABDOMEN: Soft. Nondistended. Nontender. EXTREMITIES: Normal range of motion. No clubbing or cyanosis. Peripheral pulses intact. No lower extremity edema NEUROLOGIC: Awake and alert. Oriented x 3. ASSESSMENT: Altered mental status Dizziness History of lung cancer, not on treatment Coronary artery disease with previous CABG, BRUSH to LAD, SVG to OM and PDA History of aortic stenosis with previous TAVR Ascending aortic aneurysm Ischemic cardiomyopathy History of carotid endarterectomy History of TIA History of AICD implantation, [employer] PLAN: No need to repeat echocardiogram as this was performed in the office in August 2024 Obtain orthostatic blood pressures Interrogate device If device interrogation is unremarkable, patient may be discharged home today from a cardiac standpoint Nurse practitioner note has been reviewed by physician. Signing provider agrees with the documented findings, assessment, and plan of care documented by SAND MILLER as a scribe. Past Medical History Past Medical History: Atrial Fibrillation, Coronary Artery Disease (CAD), Cancer, COPD, CVA/TIA, GERD/Reflux, GI Bleed, Hyperlipidemia, Hypertension, Myocardial Infarction ([place]), Osteoarthritis (OA), Vascular Disorder Additional Past Medical History / Comment(s): left lung CA, 07/2024 with chemo and radiation. 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, 02/2020 TIA, TIA 10/2022, carotid stenosis with L carotid endartectomy, pt states she has had irregular heart beat in past but cannot recall type, aortic stenosis/regurgitation, vertigo, balance issues-uses walker, back pain/disc problems, benign colon polyp,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 Last Myocardial Infarction Date:: 2000 History of Any Multi-Drug Resistant Organisms: None Reported Past Surgical History: AICD, Appendectomy, Bowel Resection, Cholecystectomy, Coronary Bypass/CABG, Heart Catheterization With Stent, Hernia Repair, Orthopedic Surgery Additional Past Surgical History / Comment(s): Arch studies, 2000 PCI with stents, 2002 CABG-3 vessel, 2002 AICD, AICD gen changes, DFTs, 2002 L carotid endartectomy, bowel resection for benign flat polyp, abdominal hernia repair, L hip fracture with surgery, L arm benign lesion removed, colonoscopies/polyps, ALEXIS Past Anesthesia/Blood Transfusion Reactions: No Reported Reaction, Motion Sickness Additional Past Anesthesia/Blood Transfusion Reaction / Comment(s): woke up during battery replacement in defibrillator Date of Last Stent Placement:: 2000 Type of Cardiac Device: AICD Device Placement Date:: 2002- [place] [facility] Past Psychological History: Anxiety Smoking Status: Former smoker Past Alcohol Use History: None Reported Past Drug Use History: None Reported - Past Family History Sister(s) Family Medical History: Cancer Additional Family Medical History / Comment(s): Sister had breast/bladder cancers. Son(s) Family Medical History: Cancer Additional Family Medical History / Comment(s): pancreatic cancer Father Family Medical History: Cancer Additional Family Medical History / Comment(s): Bowel cancer. Mother Family Medical History: Cancer Additional Family Medical History / Comment(s): Mother had bowel cancer twice and 2nd time metastasized to her kidney. Medications and Allergies Home Medications Medication Instructions Recorded Confirmed Type Atorvastatin [Lipitor] 80 mg PO HS 01/03/16 10/26/24 History Aspirin 81 mg PO DAILY 30 Days #30 tab 06/24/23 10/26/24 Rx Ascorbic Acid [Vitamin C] 1,000 mg PO DAILY 04/26/24 10/26/24 History Cholecalciferol [Vitamin D3 (25 25 mcg PO DAILY 04/26/24 10/26/24 History Mcg = 1000 Iu)] Cyanocobalamin [Vitamin B-12] 500 mcg PO DAILY 04/26/24 10/26/24 History Famotidine/Ca Carb/Mag Hydrox 1 tab PO DAILY 04/26/24 10/26/24 History [Pepcid Complete Tablet Chew] Psyllium Husk [Fiber Capsule] 0.4 gm PO DAILY 04/26/24 10/26/24 History Quercetin 500 mg PO DAILY 04/26/24 10/26/24 History Zinc Sulfate [Orazinc] 25 mg PO DAILY 04/26/24 10/26/24 History Omeprazole [PriLOSEC] 20 mg PO BID 09/21/24 10/26/24 History Midodrine [ProAmatine] 5 mg PO AC-TID #90 tab 09/26/24 10/26/24 Rx HYDROcodone/APAP 5-325MG [[place] 1 tab PO Q6HR PRN 3 Days #12 tab 10/24/24 10/26/24 Rx 5-325] Nitrofurantoin Monohyd/M-Cryst 100 mg PO Q12HR 5 Days #10 cap 10/24/24 10/26/24 Rx [Macrobid] predniSONE 50 mg PO DAILY 5 Days #5 tab 10/24/24 10/26/24 Rx Allergies Allergy/AdvReac Type Severity Reaction Status Date / Time lacosamide [From Vimpat] AdvReac AMS Verified 10/26/24 19:20 levetiracetam [From Keppra] AdvReac AMS Verified 10/26/24 19:20 Physical Exam Vitals: Vital Signs Temp Pulse Pulse Resp BP BP Pulse Ox 10/27/24 07:03 98.3 F 74 20 138/83 95 10/27/24 01:12 98.6 F 79 16 125/70 93 L 10/26/24 22:08 98.4 F 79 16 146/81 96 10/26/24 20:00 71 16 136/77 97 10/26/24 18:52 98.2 F 72 16 135/88 97 10/26/24 16:08 98.3 F 76 16 110/68 95 Intake and Output 10/26/24 10/27/24 10/27/24 22:59 06:59 14:59 Other: Voiding Method Toilet Toilet Diaper Diaper Incontinent Incontinent # Voids 2 Weight 63.5 kg Results 10/27/24 04:13 10/27/24 04:13 Cardiac Enzymes 10/26/24 10/26/24 Range/Units 16:54 16:54 AST 28 (14-36) U/L Troponin I <0.012 (0.000-0.034) ng/mL Coagulation 10/26/24 Range/Units 16:54 PT 10.4 (10.0-12.5) sec APTT 22.0 (22.0-30.0) sec CBC 10/26/24 10/27/24 Range/Units 16:54 04:13 WBC 16.00 H 9.46 (4.50-10.00) 10*3/uL RBC 3.23 L 3.19 L (4.10-5.20) 10*6/uL Hgb 10.3 L 10.1 L (12.0-15.0) g/dL Hct 32.2 L 32.3 L (37.2-46.3) % Plt Count 218 207 (140-440) 10*3/uL Comprehensive Metabolic Panel 10/26/24 10/27/24 Range/Units 16:54 04:13 Sodium 133 L 137 (137-145) mmol/L Potassium 4.4 4.4 (3.5-5.1) mmol/L Chloride 98 101 (98-107) mmol/L Carbon Dioxide 28 26.7 (22-30) mmol/L BUN 24 H 17.3 (7-17) mg/dL Creatinine 0.67 0.6 (0.52-1.04) mg/dL Glucose 162 H 99 (74-99) mg/dL Calcium 10.7 H 10.1 (8.4-10.2) mg/dL AST 28 (14-36) U/L ALT 18 (4-34) U/L Alkaline Phosphatase 103 (38-126) U/L Total Protein 6.8 (6.3-8.2) g/dL Albumin 4.2 (3.5-5.0) g/dL Current Medications Generic Name Dose Route Start Last Admin Trade Name Freq PRN Reason Stop Dose Admin Acetaminophen 650 mg 10/26/24 19:35 10/27/24 09:01 Acetaminophen Tab 325 Mg Tab PO 650 mg Q6HR PRN Administration Mild Pain or Fever > 100.5 Hydrocodone Bitart/Acetaminophen 1 each 10/26/24 19:48 10/26/24 22:30 Hydrocodone/Apap 5-325mg 1 Each Tab PO 1 each Q6HR PRN Administration Pain 4-10 Ascorbic Acid 1,000 mg 10/27/24 09:00 10/27/24 08:57 Ascorbic Acid 500 Mg Tab PO 1,000 mg DAILY AYLIN Administration Aspirin 81 mg 10/27/24 09:00 10/27/24 08:57 Aspirin 81 Mg PO 81 mg DAILY AYLIN Administration Atorvastatin Calcium 80 mg 10/26/24 21:00 10/26/24 20:18 Atorvastatin 80 Mg Tab PO 80 mg HS AYLIN Administration Calcium Polycarbophil 625 mg 10/27/24 09:00 10/27/24 08:57 Calcium Polycarbophil 625 Mg Tab PO 625 mg DAILY AYLIN Administration Cephalexin 500 mg 10/27/24 09:00 10/27/24 08:57 Cephalexin 500 Mg Cap PO 500 mg QID AYLIN Administration Protocol Cholecalciferol 25 mcg 10/27/24 09:00 10/27/24 08:57 Cholecalciferol 25 Mcg (1000 Iu) Tablet PO 25 mcg DAILY AYLIN Administration Cyanocobalamin 500 mcg 10/27/24 09:00 10/27/24 08:57 Cyanocobalamin 500 Mcg Tab PO 500 mcg DAILY AYLIN Administration Enoxaparin Sodium 40 mg 10/26/24 21:15 10/26/24 22:30 Enoxaparin 40 Mg/0.4 Ml Syringe SQ 40 mg HS AYLIN Administration Sodium Chloride 1,000 mls @ 75 mls/hr 10/26/24 19:45 10/27/24 09:02 Saline 0.9% IV 75 mls/hr .[id number] AYLIN Administration Midodrine 5 mg 10/27/24 07:30 10/27/24 09:08 Midodrine 5 Mg Tab PO Not Given AC-TID AYLIN Naloxone HCl 0.2 mg 10/26/24 19:35 Naloxone 0.4 Mg/Ml 1 Ml Vial IV Q2M PRN Opioid Reversal Pantoprazole Sodium 40 mg 10/27/24 09:00 10/27/24 08:57 Pantoprazole 40 Mg Tablet PO 40 mg DAILY AYLIN Administration Prednisone 50 mg 10/27/24 09:00 10/27/24 08:57 Prednisone 50 Mg Tab PO 50 mg DAILY AYLIN Administration Spironolactone 25 mg 10/27/24 09:00 10/27/24 08:57 Spironolactone 25 Mg Tab PO 25 mg DAILY AYLIN Administration Intake and Output 10/26/24 10/27/24 10/27/24 22:59 06:59 14:59 Other: Voiding Method Toilet Toilet Diaper Diaper Incontinent Incontinent # Voids 2 Weight 63.5 kg 10/27/24 04:13 10/27/24 04:13
[2024-10-27] MEDS ORDERED: levETIRAcetam 500 MG TAB PO SCH (21:00)
[2024-10-27] MEDS ORDERED: LACOSAMIDE 50 MG TABLET PO SCH (21:00)
--- NOTE | 2024-10-27 21:04 | P.PN ---
Progress Note - Text Progress Note Date: 10/27/24 Chief Complaint: Dizziness Pleasant 84 year old female with medical history of atrial fibrillation, coronary artery disease with prior CABG and PCI, AICD, carotid artery disease, COPD, hypertension, hyperlipidemia, lung cancer with chemoradiation. Patient discontinued her radiation and chemo while she received her of the treatment because she could not lay on the table because of pain in the right hip. Patient is going to seen her f engineer chief Dr. Perez. When she was going home she got home that she felt a bit dizzy. Repeat confused. She been having some burning in the urine. Intermittently. No fever no chills.. Appetite is fair. No shortness of breath. Has been feeling weak. Sometimes unsteady. Has decided to come in. Does use a walker October 27: Denies any further dizziness. Eating fair. AICD interrogation was done. Came back okay. EEG was done today. Results pending. Nothing further per cardiology. Found to be orthostatic. Will use thigh-high MAYRA stockings for the same. Walked 150 feet with physical therapy. With rolling walker Active Medications Acetaminophen (Acetaminophen Tab 325 Mg Tab) 650 mg PO Q6HR PRN PRN Reason: Mild Pain or Fever > 100.5 Last Admin: 10/27/24 09:01 Dose: 650 mg Hydrocodone Bitart/Acetaminophen (Hydrocodone/Apap 5-325mg 1 Each Tab) 1 each PO Q6HR PRN PRN Reason: Pain 4-10 Last Admin: 10/26/24 22:30 Dose: 1 each Ascorbic Acid (Ascorbic Acid 500 Mg Tab) 1,000 mg PO DAILY [facility] Last Admin: 10/27/24 08:57 Dose: 1,000 mg Aspirin (Aspirin 81 Mg) 81 mg PO DAILY [facility] Last Admin: 10/27/24 08:57 Dose: 81 mg Atorvastatin Calcium (Atorvastatin 80 Mg Tab) 80 mg PO HS [facility] Last Admin: 10/26/24 20:18 Dose: 80 mg Calcium Polycarbophil (Calcium Polycarbophil 625 Mg Tab) 625 mg PO DAILY [facility] Last Admin: 10/27/24 08:57 Dose: 625 mg Cephalexin (Cephalexin 500 Mg Cap) 500 mg PO QID [facility]; Protocol Last Admin: 10/27/24 17:39 Dose: 500 mg Cholecalciferol (Cholecalciferol 25 Mcg (1000 Iu) Tablet) 25 mcg PO DAILY [facility] Last Admin: 10/27/24 08:57 Dose: 25 mcg Cyanocobalamin (Cyanocobalamin 500 Mcg Tab) 500 mcg PO DAILY [facility] Last Admin: 10/27/24 08:57 Dose: 500 mcg Divalproex Sodium (Divalproex 500 Mg Tablet.Dr) 500 mg PO BID [facility] Enoxaparin Sodium (Enoxaparin 40 Mg/0.4 Ml Syringe) 40 mg SQ HS [facility] Last Admin: 10/26/24 22:30 Dose: 40 mg Sodium Chloride (Saline 0.9%) 1,000 mls @ 75 mls/hr IV .[id number] [facility] Last Admin: 10/27/24 09:02 Dose: 75 mls/hr Lactulose (Lactulose 20 Gm/30 Ml Cup) 20 gm PO ONCE ONE Stop: 10/28/24 06:01 Midodrine (Midodrine 5 Mg Tab) 5 mg PO AC-TID [facility] Last Admin: 10/27/24 17:39 Dose: Not Given Naloxone HCl (Naloxone 0.4 Mg/Ml 1 Ml Vial) 0.2 mg IV Q2M PRN PRN Reason: Opioid Reversal Pantoprazole Sodium (Pantoprazole 40 Mg Tablet) 40 mg PO DAILY [facility] Last Admin: 10/27/24 08:57 Dose: 40 mg Prednisone (Prednisone 50 Mg Tab) 50 mg PO DAILY [facility] Last Admin: 10/27/24 08:57 Dose: 50 mg Spironolactone (Spironolactone 25 Mg Tab) 25 mg PO DAILY [facility] Last Admin: 10/27/24 08:57 Dose: 25 mg Social history: Lives alone. Uses a walker. Started smoking in 1969. And finally quit in 2021. Smoked for 60 years. No alcohol. On examination: VITAL SIGNS: 98.1, 80, 16, 136 x 78, 96% room air. Found to be orthostatic. GENERAL APPEARANCE: BMI 22.1, reclining bed awake a bit tired appearing HEENT: Normal external appearance of nose and ear. Oral cavity normal. Alopecia EYES: Pupils equal. Conjunctiva pale.. NECK: JVD not raised. Mass not palpable. RESPIRATORY: Respiratory effort normal. Lungs clear to auscultation. CARDIOVASCULAR: First and second sounds normal. No edema. ABDOMEN: Soft. Liver and spleen not palpable. No tenderness. No mass palpable. PSYCHIATRY: Alert and oriented x3. Mood and affect normal Musculoskeletal: OA INVESTIGATIONS, reviewed in the clinical context: October 26: White count 16 hemoglobin 10.3 platelets 218 sodium 133 potassium 4.4 BUN 24 creatinine 0.67 UA positive for leukoesterase, WBC EKG tracing personally reviewed by me-normal sinus rhythm. Some ST-T wave changes. Chest x-ray film personally reviewed by me-pacemaker. Cardiomegaly CT brain: Chronic changes Recent examinations Lumbar spine x-ray: No fracture. Severe DJD changes. Fusion. CT abdomen pelvis: Thoracoabdominal infrarenal abdominal arctic aneurysm. Diverticulosis. Assessment and plan: - Patient may have had episodes of dizziness. Slight confusion. She does have urinary symptoms. But does not seem to have a roaring UTI. Need to rule out other causes of the presentation including arrhythmia. Get a pacemaker check. - Orthostatic hypotension Will use thigh-high bilateral MAYRA stockings - AICD: Was interrogated. Okay Seen by cardiology - Acute UTI Received 1 dose of IV ceftriaxone in the ER. Keflex -Fall with lower back pain with focal tenderness adjacent to the mid lumbar spine. No fracture. K-pad. -Limited stage small cell lung cancer. Received chemotherapy and radiation treatment. Former August 02 of this year and radiation treatment on August 25 of this year. Because patient has trouble laying on the table because of right hip pain. Has decided against further chemo and radiation treatment. Being followed by Dr. Wilfredo Donohue -Mild dysphagia from presbyesophagus Fluoroscopy with barium swallow done recently Soft diet -Hyperlipidemia Lipitor -Advance degenerative disc disease, multiple joints Pain medications -Coronary artery disease with prior CABG and PCI Aspirin. Lipitor -History of aortic stenosis status post TAVR -COPD, controlled Bronchodilators as needed -Chemotherapy-induced pancytopenia Follow CBC - Presbyesophagus,-barium swallow -Anemia of chronic disease from underlying malignancy -Chronic congestive heart failure systolic dysfunction with a EF of 40 to 45% Aldactone 12.5 mg a day Thoracoabdominal and infrarenal abdominal aortic aneurysms follows with Dr. Gross on an outpatient basis -DNR Thigh-high bilateral MAYRA stockings for systolic. Pending EEG results. Hopefully discharge tomorrow Past Medical History Past Medical History: Atrial Fibrillation, Coronary Artery Disease (CAD), Cancer, COPD, CVA/TIA, GERD/Reflux, GI Bleed, Hyperlipidemia, Hypertension, Myocardial Infarction ([place]), Osteoarthritis (OA), Vascular Disorder Additional Past Medical History / Comment(s): left lung CA, 07/2024 with chemo and radiation. 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, 02/2020 TIA, TIA 10/2022, carotid stenosis with L carotid endartectomy, pt states she has had irregular heart beat in past but cannot recall type, aortic stenosis/regurgitation, vertigo, balance issues-uses walker, back pain/disc problems, benign colon polyp,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 Last Myocardial Infarction Date:: 2000 History of Any Multi-Drug Resistant Organisms: None Reported Past Surgical History: AICD, Appendectomy, Bowel Resection, Cholecystectomy, Coronary Bypass/CABG, Heart Catheterization With Stent, Hernia Repair, Orthopedic Surgery Additional Past Surgical History / Comment(s): Arch studies, 2000 PCI with stents, 2002 CABG-3 vessel, 2002 AICD, AICD gen changes, DFTs, 2002 L carotid endartectomy, bowel resection for benign flat polyp, abdominal hernia repair, L hip fracture with surgery, L arm benign lesion removed, colonoscopies/polyps, ALEXIS Past Anesthesia/Blood Transfusion Reactions: No Reported Reaction, Motion Sickness Additional Past Anesthesia/Blood Transfusion Reaction / Comment(s): woke up during battery replacement in defibrillator Date of Last Stent Placement:: 2000 Type of Cardiac Device: AICD Device Placement Date:: 2002- [employer] Past Psychological History: Anxiety Smoking Status: Former smoker Past Alcohol Use History: None Reported Past Drug Use History: None Reported
[2024-10-27] MEDS: DIVALPROEX 500 MG TABLET.DR PO SCH (21:33)
--- NOTE | 2024-10-28 03:27 | EEG ---
ELECTROENCEPHALOGRAM REPORT CLINICAL HISTORY: This is an 84-year-old woman with altered mental status. The video EEG is obtained to evaluate for seizure epileptiform activity. RELEVANT MEDICATION: The patient is not on any antiepileptic drugs. EEG TYPE: This is a routine 21-channel EEG with video using the 10/20 electrode placement system. DESCRIPTION: Wakefulness is only obtained. During awake state, the posterior-dominant rhythm consists of [id number] voltage of 7-7.5 hertz activity. There was no physiological stage 2 sleep architecture. There is no focal slowing. Interictal and ictal, there is a phase reversal over the P3. No seizure is noted during the study. ACTIVATION PROCEDURE: Photic stimulation did not evoke a posterior driving response. There is no abnormality during the photic stimulation. Hyperventilation is not performed. CLINICAL INTERPRETATION: This is an abnormal routine EEG. The background slowing is suggestive of mild encephalopathy. There are epileptiform discharges over the left parietal region which can increase risk for focal seizure as well status epilepticus. No seizures noted during the study as well as no focal slowing. Clinical correlation is recommended. MMODL / IJN: [id number] /
[2024-10-28] MEDS: LACTULOSE 20 GM/30 ML CUP PO ONE (06:21)
[2024-10-28 13:57] VITALS: BP 128/71; PULSE 73; RESP 18; TEMP 97.9
--- NOTE | 2024-10-28 14:57 | P.PN ---
Subjective Progress Note Date: 10/28/24 This is a 84-year-old female with a past medical history significant for coronary artery disease with previous CABG, aortic stenosis with previous TAVR, ascending aortic aneurysm, TIA, ischemic cardiomyopathy, carotid endarterectomy, lung cancer, and hyperlipidemia. Patient follows in the office with Dr. Mo. We have been asked to see the patient in consultation for pacemaker check. Patient examined at the bedside. Patient presented to the hospital with a chief complaint of dizziness and confusion. She denied having any chest pain or pressure. She denied having any shortness of breath. Vital signs are stable. Patient states that she feels back to her baseline and is hoping to be discharged home soon. DIAGNOSTICS: - EKG reveals sinus mechanism with nonspecific ST-T wave changes. - Chest xray negative for acute process - Laboratory data: WBC 9.46. Hemoglobin 10.1. Platelet count 207. Sodium 137. Potassium 4.4. BUN 17. Creatinine 0.6. Troponin negative x 1. - Current home cardiac medications include Lipitor 40 mg at night, aspirin 81 mg daily, midodrine 5 mg 3 times daily. - Most recent echocardiogram obtained in August 2024 revealed ejection fraction 40 to 45%, medium sized akinetic area of inferior and inferior lateral wall from the mid wall to the apex, small akinetic area of the lateral wall at the apex, transcatheter AV prosthesis with normal function, ascending aorta is aneurysmal, mild MR, mild to moderate TR -Patient underwent carotid Doppler in the office in August 2024 revealing less than 50% stenosis bilaterally 10/28/2024 Patient was seen and examined sitting up at the side of the bed. Overall feeling somewhat lightheaded and unwell and feels it is related to her seizure medications and has been urged to discuss with with primary. Device interrogat ion reviewed no evidence of arrhythmia with no ICD discharges. PHYSICAL EXAM: VITAL SIGNS: Reviewed. GENERAL: Well-developed in no acute distress. HEENT: Head is normocephalic. Pupils are equal, round. Sclerae anicteric. Mucous membranes of the mouth are moist. Neck supple. No JVD or thyromegaly LUNGS: Respirations even and unlabored. Lungs essentially clear to auscultation bilaterally. HEART: Regular rate and rhythm. S1 and S2 heard. ABDOMEN: Soft. Nondistended. Nontender. EXTREMITIES: Normal range of motion. No clubbing or cyanosis. Peripheral pulses intact. No lower extremity edema NEUROLOGIC: Awake and alert. Oriented x 3. ASSESSMENT: Altered mental status Dizziness History of lung cancer, not on treatment Coronary artery disease with previous CABG, BRUSH to LAD, SVG to OM and PDA History of aortic stenosis with previous TAVR Ascending aortic aneurysm Ischemic cardiomyopathy History of carotid endarterectomy History of TIA History of AICD implantation, [employer] PLAN: From cardiology's perspective patient may be discharged home. She will follow- up as an outpatient with Dr. Mo. MANAGER [employer] OFFICE note has been reviewed, I agree with a documented findings and plan of care. Patient was seen and examined. Objective - Vital Signs Vital signs: Vital Signs Temp 97.9 F 10/28/24 13:56 Pulse 73 10/28/24 13:56 Resp 18 10/28/24 13:56 BP 128/71 10/28/24 13:56 Pulse Ox 94 L 10/28/24 13:56 FiO2 Intake & Output 10/27/24 10/28/24 10/28/24 18:59 06:59 18:59 Intake Total 960 Balance 960 Intake: Oral 960 Other: Voiding Method Toilet Toilet Toilet Diaper Diaper Diaper Incontinent # Voids 4 4 - Labs CBC & Chem 7: 10/27/24 04:13 10/27/24 04:13
--- NOTE | 2024-10-28 19:26 | P.DS ---
Providers Date of admission: 10/26/24 19:41 Expected date of discharge: 10/28/24 Attending physician: Deacon Pool Consults: 10/26/24 19:35 Consult Physician Urgent Consulting Provider: Adams Yang Consult Reason/Comments: dizziness, confusion Do you want consulting provider notified?: Yes 10/26/24 22:28 Consult Physician Routine Consulting Provider: Emil Luna Consult Reason/Comments: Pacemaker Do you want consulting provider notified?: Yes Primary care physician: [facility] Course: Chief Complaint: Dizziness Pleasant 84 year old female with medical history of atrial fibrillation, coronary artery disease with prior CABG and PCI, AICD, carotid artery disease, COPD, hypertension, hyperlipidemia, lung cancer with chemoradiation. Patient discontinued her radiation and chemo while she received her of the treatment because she could not lay on the table because of pain in the right hip. Patient is going to seen her f pulper operator Dr. Perez. When she was going home she got home that she felt a bit dizzy. Repeat confused. She been having some burning in the urine. Intermittently. No fever no chills.. Appetite is fair. No shortness of breath. Has been feeling weak. Sometimes unsteady. Has decided to come in. Does use a walker October 27: Denies any further dizziness. Eating fair. AICD interrogation was done. Came back okay. EEG was done today. Results pending. Nothing further per cardiology. Found to be orthostatic. Will use thigh-high MAYRA stockings for the same. Walked 150 feet with physical therapy. With rolling walker October 28: Discussed with Dr. YANG from neurology. In the past patient had seizures. Did not tolerate Keppra or Vimpat. EEG done yesterday shows activity in the parietal on the left side. Depakote has been added. Patient does not drive. Advised again the same. ICD was interrogated. Unremarkable MAYRA stockings for orthostatic. Patient does understand that her cancer without treatment is progressive. Discussion and discharge planning more than 35 minutes Social history: Lives alone. Uses a walker. Started smoking in 1969. And finally quit in 2021. Smoked for 60 years. No alcohol. On examination: VITAL SIGNS:. 97.9, 73, 18, 128% 1, 94% room air GENERAL APPEARANCE: BMI 22.1, reclining bed awake, comfortable HEENT: Normal external appearance of nose and ear. Oral cavity normal. Alopecia EYES: Pupils equal. Conjunctiva pale.. NECK: JVD not raised. Mass not palpable. RESPIRATORY: Respiratory effort normal. Lungs clear to auscultation. CARDIOVASCULAR: First and second sounds normal. No edema. ABDOMEN: Soft. Liver and spleen not palpable. No tenderness. No mass palpable. PSYCHIATRY: Alert and oriented x3. Mood and affect normal Musculoskeletal: OA INVESTIGATIONS, reviewed in the clinical context: EEG: Epileptiform discharges over the left parietal region. October 26: White count 16 hemoglobin 10.3 platelets 218 sodium 133 potassium 4.4 BUN 24 creatinine 0.67 UA positive for leukoesterase, WBC EKG tracing personally reviewed by me-normal sinus rhythm. Some ST-T wave changes. Chest x-ray film personally reviewed by me-pacemaker. Cardiomegaly CT brain: Chronic changes Recent examinations Lumbar spine x-ray: No fracture. Severe DJD changes. Fusion. CT abdomen pelvis: Thoracoabdominal infrarenal abdominal arctic aneurysm. Diverticulosis. Assessment and plan: - Patient may have had episodes of dizziness. Slight confusion. She does have urinary symptoms. But does not seem to have a roaring UTI. Need to rule out other causes of the presentation including arrhythmia. Get a pacemaker check. - Orthostatic hypotension Will use thigh-high bilateral MAYRA stockings - Epilepsy. Known in the past. This admission seen by Dr. Yang from neurology. In the past did not tolerate Vimpat or Keppra. Placed on Depakote. Patient follow-up with her neurologist she could not remember the name. - AICD: Was interrogated. Okay Seen by cardiology - Acute UTI Received 1 dose of IV ceftriaxone in the ER. Keflex -Fall with lower back pain with focal tenderness adjacent to the mid lumbar spine. No fracture. K-pad. -Limited stage small cell lung cancer. Received chemotherapy and radiation treatment. Former August 02 of this year and radiation treatment on August 25 of this year. Because patient has trouble laying on the table because of right hip pain. Has decided against further chemo and radiation treatment. Being followed by Dr. Wilfredo Donohue -Mild dysphagia from presbyesophagus Fluoroscopy with barium swallow done recently Soft diet -Hyperlipidemia Lipitor -Advance degenerative disc disease, multiple joints Pain medications -Coronary artery disease with prior CABG and PCI Aspirin. Lipitor -History of aortic stenosis status post TAVR -COPD, controlled Bronchodilators as needed -Chemotherapy-induced pancytopenia Follow CBC - Presbyesophagus,-barium swallow -Anemia of chronic disease from underlying malignancy -Chronic congestive heart failure systolic dysfunction with a EF of 40 to 45% Aldactone 12.5 mg a day Thoracoabdominal and infrarenal abdominal aortic aneurysms follows with Dr. Gross on an outpatient basis -DNR Disposition: Home Past Medical History Past Medical History: Atrial Fibrillation, Coronary Artery Disease (CAD), Cancer, COPD, CVA/TIA, GERD/Reflux, GI Bleed, Hyperlipidemia, Hypertension, Myocardial Infarction ([place]), Osteoarthritis (OA), Vascular Disorder Additional Past Medical History / Comment(s): left lung CA, 07/2024 with chemo and radiation. 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, 02/2020 TIA, TIA 10/2022, carotid stenosis with L carotid endartectomy, pt states she has had irregular heart beat in past but cannot recall type, aortic stenosis/regurgitation, vertigo, balance issues-uses walker, back pain/disc problems, benign colon polyp,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 Last Myocardial Infarction Date:: 2000 History of Any Multi-Drug Resistant Organisms: None Reported Past Surgical History: AICD, Appendectomy, Bowel Resection, Cholecystectomy, Coronary Bypass/CABG, Heart Catheterization With Stent, Hernia Repair, Orthopedic Surgery Additional Past Surgical History / Comment(s): Arch studies, 2000 PCI with stents, 2002 CABG-3 vessel, 2002 AICD, AICD gen changes, DFTs, 2002 L carotid endartectomy, bowel resection for benign flat polyp, abdominal hernia repair, L hip fracture with surgery, L arm benign lesion removed, colonoscopies/polyps, ALEXIS Past Anesthesia/Blood Transfusion Reactions: No Reported Reaction, Motion Sickness Additional Past Anesthesia/Blood Transfusion Reaction / Comment(s): woke up during battery replacement in defibrillator Date of Last Stent Placement:: 2000 Type of Cardiac Device: AICD Device Placement Date:: 2002- [employer] Past Psychological History: Anxiety Smoking Status: Former smoker Past Alcohol Use History: None Reported Past Drug Use History: None Reported Plan - Discharge Summary Discharge Rx Participant: Yes New Discharge Prescriptions: New Cephalexin [Keflex] 500 mg PO QID #6 cap Spironolactone [Aldactone] 25 mg PO DAILY #30 tab Divalproex [Depakote] 500 mg PO BID #60 tab Continue Atorvastatin [Lipitor] 80 mg PO HS Aspirin 81 mg PO DAILY 30 Days #30 tab Cyanocobalamin [Vitamin B-12] 500 mcg PO DAILY Cholecalciferol [Vitamin D3 (25 Mcg = 1000 Iu)] 25 mcg PO DAILY Ascorbic Acid [Vitamin C] 1,000 mg PO DAILY Famotidine/Ca Carb/Mag Hydrox [Pepcid Complete Tablet Chew] 1 tab PO DAILY Omeprazole [PriLOSEC] 20 mg PO BID Midodrine [ProAmatine] 5 mg PO AC-TID #90 tab Psyllium Husk [Fiber Capsule] 0.4 gm PO DAILY HYDROcodone/APAP 5-325MG [[place] 5-325] 1 tab PO Q6HR PRN 3 Days #12 tab PRN Reason: Pain predniSONE 50 mg PO DAILY 5 Days #5 tab Discontinued Zinc Sulfate [Orazinc] 25 mg PO DAILY Nitrofurantoin Monohyd/M-Cryst [Macrobid] 100 mg PO Q12HR 5 Days #10 cap No Action Quercetin 500 mg PO DAILY Discharge Medication List Atorvastatin [Lipitor] 80 mg PO HS 01/03/16 [History] Aspirin 81 mg PO DAILY 30 Days #30 tab 06/24/23 [Rx] Ascorbic Acid [Vitamin C] 1,000 mg PO DAILY 04/26/24 [History] Cholecalciferol [Vitamin D3 (25 Mcg = 1000 Iu)] 25 mcg PO DAILY 04/26/24 [History] Cyanocobalamin [Vitamin B-12] 500 mcg PO DAILY 04/26/24 [History] Famotidine/Ca Carb/Mag Hydrox [Pepcid Complete Tablet Chew] 1 tab PO DAILY 04/11 [History] Psyllium Husk [Fiber Capsule] 0.4 gm PO DAILY 04/26/24 [History] Quercetin 500 mg PO DAILY 04/26/24 [History] Omeprazole [PriLOSEC] 20 mg PO BID 09/21/24 [History] Midodrine [ProAmatine] 5 mg PO AC-TID #90 tab 09/26/24 [Rx] HYDROcodone/APAP 5-325MG [[place] 5-325] 1 tab PO Q6HR PRN 3 Days #12 tab 10/24/24 [Rx] predniSONE 50 mg PO DAILY 5 Days #5 tab 10/24/24 [Rx] Cephalexin [Keflex] 500 mg PO QID #6 cap 10/28/24 [Rx] Divalproex [Depakote] 500 mg PO BID #60 tab 10/28/24 [Rx] Spironolactone [Aldactone] 25 mg PO DAILY #30 tab 10/28/24 [Rx] Follow up Appointment(s)/Referral(s): Nishant Huffman DO [Primary Care Provider] - 1-2 days Adams Muse MD [STAFF PHYSICIAN] - 1 Week Patient Instructions/Handouts: Seizure/Epilepsy Discharge Instructions & Follow-Up, Cephalexin (By mouth), Spironolactone (By mouth), Divalproex (By mouth), Urinary Tract Infection in Women (DC) Activity/Diet/Wound Care/Special Instructions: no motor driving seizure precautuions dc with thigh high TEDs Discharge Disposition: HOME SELF-CARE
== END 2024-10-28 15:09 | disposition home or self-care (01) ==
LOC: EC 16:04 → 5NMEDONC 19:41
PROVIDERS: ADMIT Hospitalist; ATTEND Hospitalist
DX: N39.0 Urinary tract infection, site not specified (principal); G93.41 Metabolic encephalopathy; C34.91 Malignant neoplasm of unspecified part of right bronchus or lung; G40.909 Epilepsy, unspecified, not intractable, without status epilepticus; I95.1 Orthostatic hypotension; J44.9 Chronic obstructive pulmonary disease, unspecified; D61.810 Antineoplastic chemotherapy induced pancytopenia; D63.8 Anemia in other chronic diseases classified elsewhere; I11.0 Hypertensive heart disease with heart failure; I50.22 Chronic systolic (congestive) heart failure; I25.5 Ischemic cardiomyopathy; I71.21 Aneurysm of the ascending aorta, without rupture; M25.551 Pain in right hip; K22.89 Other specified disease of esophagus; E78.5 Hyperlipidemia, unspecified; I25.10 Atherosclerotic heart disease of native coronary artery without angina pectoris; I48.91 Unspecified atrial fibrillation; I45.10 Unspecified right bundle-branch block; K57.90 Diverticulosis of intestine, part unspecified, without perforation or abscess without bleeding; M54.50 Low back pain, unspecified; W19.XXXA Unspecified fall, initial encounter; R29.6 Repeated falls; Z66 Do not resuscitate; Z79.82 Long term (current) use of aspirin; Z79.899 Other long term (current) drug therapy; Z79.52 Long term (current) use of systemic steroids; Z88.8 Allergy status to other drugs, medicaments and biological substances; Z92.3 Personal history of irradiation; Z92.21 Personal history of antineoplastic chemotherapy; Z95.1 Presence of aortocoronary bypass graft; Z95.5 Presence of coronary angioplasty implant and graft; Z95.2 Presence of prosthetic heart valve; Z86.73 Personal history of transient ischemic attack (TIA), and cerebral infarction without residual deficits; Z87.891 Personal history of nicotine dependence; Z95.810 Presence of automatic (implantable) cardiac defibrillator; Z87.440 Personal history of urinary (tract) infections; Z98.1 Arthrodesis status
CPT/HCPCS: 96361; 96372 ×2; 96374; 99285; 36415; 95816; 93005; 97162; 97165; 80053; 80048; 82140; 83605; 83735; 84484; 85025 ×2; 85610; 85730; 81001; 71046; 70450; G0378 ×3; J1650 ×2; J0696; J7512 ×2

== ENCOUNTER 2024-11-10 11:06 | Emergency (ER) | payer MEDICARE, BC ==
[2024-11-10 11:24] VITALS: RESP 16; TEMP 98.1
--- NOTE | 2024-11-10 12:06 | ED ---
General Adult HPI - General Chief complaint: Fall Stated complaint: weakness Time Seen by Provider: 11/10/24 11:28 Source: patient, EMS, RN notes reviewed Mode of arrival: EMS Limitations: no limitations - History of Present Illness Initial comments: 84-year-old female presenting to the emergency department for complaints of generalized weakness and a fall that occurred yesterday. Patient states that she has been increasingly weak on her feet and that caused a fall yesterday onto her right hip. Patient denies hitting her head or loss conscious at the time of the fall. Patient has been able to ambulate since the time of the injury however is concerned that she does have a total hip replacement on the right. Additionally, patient is concerned that she may have a urinary tract infection that she is been having recurrent infections over the past few months and has had similar symptoms such as generalized weakness and intermittent dysuria and burning while urinating. Patient completed antibiotics 2 weeks ago for urinary tract infection. denies blood thinner use. - Related Data Home Medications Medication Instructions Recorded Confirmed Atorvastatin [Lipitor] 80 mg PO HS 01/03/16 11/10/24 Ascorbic Acid [Vitamin C] 1,000 mg PO DAILY 04/26/24 11/10/24 Cholecalciferol [Vitamin D3 (25 25 mcg PO DAILY 04/26/24 11/10/24 Mcg = 1000 Iu)] Cyanocobalamin [Vitamin B-12] 500 mcg PO DAILY 04/26/24 11/10/24 Famotidine/Ca Carb/Mag Hydrox 1 tab PO DAILY 04/26/24 11/10/24 [Pepcid Complete Tablet Chew] Psyllium Husk [Fiber Capsule] 0.4 gm PO DAILY 04/26/24 11/10/24 Quercetin 500 mg PO DAILY 04/26/24 11/10/24 Omeprazole [PriLOSEC] 20 mg PO BID 09/21/24 11/10/24 Previous Rx's Medication Instructions Recorded Aspirin 81 mg PO DAILY 30 Days #30 tab 06/24/23 Midodrine [ProAmatine] 5 mg PO AC-TID #90 tab 09/26/24 HYDROcodone/APAP 5-325MG [[place] 1 tab PO Q6HR PRN 3 Days #12 tab 10/24/24 5-325] Spironolactone [Aldactone] 25 mg PO DAILY #30 tablet 10/29/24 Allergies Allergy/AdvReac Type Severity Reaction Status Date / Time lacosamide [From Vimpat] AdvReac AMS Verified 11/10/24 13:10 levetiracetam [From Keppra] AdvReac AMS Verified 11/10/24 13:10 Review of Systems ROS Statement: Those systems with pertinent positive or pertinent negative responses have been documented in the HPI. ROS Other: All systems not noted in ROS Statement are negative. Past Medical History Past Medical History: Atrial Fibrillation, Coronary Artery Disease (CAD), Cancer, COPD, CVA/TIA, GERD/Reflux, GI Bleed, Hyperlipidemia, Hypertension, Myocardial Infarction (CO), Osteoarthritis (OA), Vascular Disorder Additional Past Medical History / Comment(s): left lung CA, 07/2024 with chemo and radiation. 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, 02/2020 TIA, TIA 10/2022, carotid stenosis with L carotid endartectomy, pt states she has had irregular heart beat in past but cannot recall type, aortic stenosis/regurgitation, vertigo, balance issues-uses walker, back pain/disc problems, benign colon polyp,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 Last Myocardial Infarction Date:: 2000 History of Any Multi-Drug Resistant Organisms: None Reported Past Surgical History: AICD, Appendectomy, Bowel Resection, Cholecystectomy, Coronary Bypass/CABG, Heart Catheterization With Stent, Hernia Repair, Orthopedic Surgery Additional Past Surgical History / Comment(s): Arch studies, 2000 PCI with stents, 2002 CABG-3 vessel, 2002 AICD, AICD gen changes, DFTs, 2002 L carotid endartectomy, bowel resection for benign flat polyp, abdominal hernia repair, L hip fracture with surgery, L arm benign lesion removed, colonoscopies/polyps, ALEXIS Past Anesthesia/Blood Transfusion Reactions: No Reported Reaction, Motion Sickness Additional Past Anesthesia/Blood Transfusion Reaction / Comment(s): woke up during battery replacement in defibrillator Date of Last Stent Placement:: 2000 Type of Cardiac Device: AICD Device Placement Date:: 2002- [employer] Past Psychological History: Anxiety Smoking Status: Former smoker Past Alcohol Use History: None Reported Past Drug Use History: None Reported - Past Family History Sister(s) Family Medical History: Cancer Additional Family Medical History / Comment(s): Sister had breast/bladder cancers. Son(s) Family Medical History: Cancer Additional Family Medical History / Comment(s): pancreatic cancer Father Family Medical History: Cancer Additional Family Medical History / Comment(s): Bowel cancer. Mother Family Medical History: Cancer Additional Family Medical History / Comment(s): Mother had bowel cancer twice and 2nd time metastasized to her kidney. General Exam Limitations: no limitations General appearance: alert, in no apparent distress Neck exam: Present: normal inspection. Absent: tenderness, meningismus, lymphadenopathy Respiratory exam: Present: normal lung sounds bilaterally. Absent: respiratory distress, wheezes, rales, rhonchi, stridor Cardiovascular Exam: Present: regular rate, normal rhythm, normal heart sounds. Absent: systolic murmur, diastolic murmur, rubs, gallop, clicks GI/Abdominal exam: Present: soft, normal bowel sounds. Absent: distended, tende rness, guarding, rebound, rigid Extremities exam: Present: normal inspection, full ROM, tenderness (right hip- full ROM intact), normal capillary refill. Absent: pedal edema, joint swelling, calf tenderness Back exam: Present: normal inspection Neurological exam: Present: alert, oriented X3, CN II-XII intact Course Vital Signs 11/10/24 11:08 Temperature 98.1 F Pulse Rate 74 Respiratory 16 Rate Blood Pressure 104/82 O2 Sat by Pulse 96 Oximetry Medical Decision Making - Medical Decision Making Was pt. sent in by a medical professional or institution (Dr. PA, HAND CLIPPER, urgent care, hospital, or custodial...) When possible be specific @ -No Did you speak to anyone other than the patient for history (EMS, parent, family, police, friend...)? What history was obtained from this source @ -No Did you review nursing and triage notes (agree or disagree)? Why? @ -I reviewed and agree with nursing and triage notes Were old charts reviewed (outside hosp., previous admission, EMS record, old EKG, old radiological studies, urgent care reports/EKG's, custodial records)? Report findings @ -No old charts were reviewed Differential Diagnosis (chest pain, altered mental status, abdominal pain women, abdominal pain men, vaginal bleeding, weakness, fever, dyspnea, syncope, headache, dizziness, GI bleed, back pain, seizure, CVA, palpatations, mental health, musculoskeletal)? @ -Differential Weakness: Hypoglycemia, shock, sepsis, hyponatremia, anemia, infection, CO, ETOH, adverse medicine reaction, overdose, stroke, this is not meant to be an all-inclusive list. EKG interpreted by me (3pts min.). @ -EKG at 1138 reveals sinus rhythm with a ventricular rate of 72, HI interval 160, QRS 99, QT 356, QTc 381. Compared to previous EKG was completed on 10/26/24 no acute changes. X-rays interpreted by me (1pt min.). @ -X-ray of the right hip reveals no acute osseous pathology CT interpreted by me (1pt min.). @ -None done U/S interpreted by me (1pt. min.). @ -None done What testing was considered but not performed or refused? (CT, X-rays, U/S, labs)? Why? @ -None What meds were considered but not given or refused? Why? @ -None Did you discuss the management of the patient with other professionals (professionals i.e. , PA, HAND CLIPPER, lab, RT, psych nurse, social media content specialist, chrome cleaner, teacher, chief security and safety officer, transplant case manager)? Give summary @ -No Was smoking cessation discussed for >3mins.? @ -No Was critical care preformed (if so, how long)? @ -No Were there social determinants of health that impacted care today? How? (Homelessness, low income, unemployed, alcoholism, drug addiction, transportation, low edu. Level, literacy, decrease access to med. care, usp, rehab)? @ -No Was there de-escalation of care discussed even if they declined (Discuss DNR or withdrawal of care, Hospice)? DNR status @ -No What co-morbidities impacted this encounter? (DM, HTN, Smoking, COPD, CAD, Cancer, CVA, ARF, Chemo, Hep., AIDS, mental health diagnosis, sleep apnea, morbi d obesity)? @ -None Was patient admitted / discharged? Hospital course, mention meds given and route , prescriptions, significant lab abnormalities, going to OR and other pertinent info. @ -Discharge. 84-year-old female resents emergency department with complaints of generalized weakness, recent falls and concern for urinary tract infection. Initial vitals were stable. Physical examination completed with no acute findings. Patient does have mild pain to the right hip with range of motion however patient is able to ambulate and is neurovascularly intact. She is provided with dose of morphine for pain and will be provided with fluids with clinical concern of dehydration. EKG reveals a sinus rhythm. Laboratory testing is unremarkable including CBC, CMP, coagulation and troponin. Urinalysis no signs of infection. X-ray of the hip completed with no evidence of fracture or dislocation. Patient stable for discharge and appropriate follow-up outpatient. Case discussed with Dr. Rodriguez Undiagnosed new problem with uncertain prognosis? @ -No Drug Therapy requiring intensive monitoring for toxicity (Heparin, Nitro, Insulin, Cardizem)? @ -No Were any procedures done? @ -No Diagnosis/symptom? @ - falls, generalized weakness, hip pain Acute, or Chronic, or Acute on Chronic? @ -Acute Uncomplicated (without systemic symptoms) or Complicated (systemic symptoms)? @ -Uncomplicated Side effects of treatment? @ -No Exacerbation, Progression, or Severe Exacerbation? @ -No Poses a threat to life or bodily function? How? (Chest pain, USA, CO, pneumonia, PE, COPD, DKA, ARF, appy, cholecystitis, CVA, Diverticulitis, Homicidal, Suicidal, threat to staff... and all critical care pts) @ -No - Lab Data Result diagrams: 11/10/24 12:09 11/10/24 12:09 Lab Results 11/10/24 11/10/24 11/10/24 Range/Units 12:09 12:09 12:09 WBC 9.45 (4.50-10.00) 10*3/uL RBC 3.48 L (4.10-5.20) 10*6/uL Hgb 11.5 L (12.0-15.0) g/dL Hct 35.0 L (37.2-46.3) % MCV 100.6 H (80.0-97.0) fL MCH 33.0 H (27.0-32.0) pg MCHC 32.9 (32.0-37.0) g/dL Plt Count 133 L (140-440) 10*3/uL MPV 9.7 (9.5-12.2) fL Immature Gran % (Auto) 0.4 % Neutrophils % 81.5 % Lymphocytes % 8.4 % Monocytes % 7.9 % Eosinophils % 1.2 % Basophils % 0.6 % Immature Gran # 0.04 (0.00-0.04) 10*3/uL Neutrophils # 7.70 (1.80-7.70) 10*3/uL Lymphocytes # 0.79 L (0.90-5.00) 10*3/uL Monocytes # 0.75 (0.20-1.00) 10*3/uL Eosinophils # 0.11 (0.04-0.35) 10*3/uL Basophils # 0.06 (0.00-0.10) 10*3/uL PT 10.3 (10.0-12.5) sec INR 0.9 (<1.2) APTT 25.9 (22.0-30.0) sec Sodium 137 (137-145) mmol/L Potassium 4.1 (3.5-5.1) mmol/L Chloride 101 (98-107) mmol/L Carbon Dioxide 27 (22-30) mmol/L Anion Gap 9 mmol/L BUN 15 (7-17) mg/dL Creatinine 0.82 (0.52-1.04) mg/dL Est GFR (CKD-EPI)AfAm 77 (>60 ml/min/1.73 sqM) Est GFR (CKD-EPI)NonAf 67 (>60 ml/min/1.73 sqM) Glucose 89 (74-99) mg/dL Plasma Lactic Acid Ezequiel (0.7-2.0) mmol/L Calcium 10.6 H (8.4-10.2) mg/dL Magnesium 2.0 (1.6-2.3) mg/dL Total Bilirubin 1.3 (0.2-1.3) mg/dL AST 30 (14-36) U/L ALT 22 (4-34) U/L Alkaline Phosphatase 116 (38-126) U/L Troponin I (0.000-0.034) ng/mL Total Protein 6.8 (6.3-8.2) g/dL Albumin 4.3 (3.5-5.0) g/dL Urine Color Urine Appearance (Clear) Urine pH (5.0-8.0) Ur Specific [place] (1.001-1.035) Urine Protein (Negative) Urine Glucose (UA) (Negative) Urine Ketones (Negative) Urine Blood (Negative) Urine Nitrite (Negative) Urine Bilirubin (Negative) Urine Urobilinogen (<2.0) mg/dL Ur Leukocyte Esterase (Negative) Urine RBC (0-5) /hpf Urine WBC (0-5) /hpf Ur Squamous Epith Cells (0-4) /hpf Urine Mucus (None) /hpf 11/10/24 11/10/24 11/10/24 Range/Units 12:09 12:09 14:30 WBC (4.50-10.00) 10*3/uL RBC (4.10-5.20) 10*6/uL Hgb (12.0-15.0) g/dL Hct (37.2-46.3) % MCV (80.0-97.0) fL MCH (27.0-32.0) pg MCHC (32.0-37.0) g/dL Plt Count (140-440) 10*3/uL MPV (9.5-12.2) fL Immature Gran % (Auto) % Neutrophils % % Lymphocytes % % Monocytes % % Eosinophils % % Basophils % % Immature Gran # (0.00-0.04) 10*3/uL Neutrophils # (1.80-7.70) 10*3/uL Lymphocytes # (0.90-5.00) 10*3/uL Monocytes # (0.20-1.00) 10*3/uL Eosinophils # (0.04-0.35) 10*3/uL Basophils # (0.00-0.10) 10*3/uL PT (10.0-12.5) sec INR (<1.2) APTT (22.0-30.0) sec Sodium (137-145) mmol/L Potassium (3.5-5.1) mmol/L Chloride (98-107) mmol/L Carbon Dioxide (22-30) mmol/L Anion Gap mmol/L BUN (7-17) mg/dL Creatinine (0.52-1.04) mg/dL Est GFR (CKD-EPI)AfAm (>60 ml/min/1.73 sqM) Est GFR (CKD-EPI)NonAf (>60 ml/min/1.73 sqM) Glucose (74-99) mg/dL Plasma Lactic Acid Ezequiel 1.2 (0.7-2.0) mmol/L Calcium (8.4-10.2) mg/dL Magnesium (1.6-2.3) mg/dL Total Bilirubin (0.2-1.3) mg/dL AST (14-36) U/L ALT (4-34) U/L Alkaline Phosphatase (38-126) U/L Troponin I <0.012 (0.000-0.034) ng/mL Total Protein (6.3-8.2) g/dL Albumin (3.5-5.0) g/dL Urine Color Yellow Urine Appearance Cloudy H (Clear) Urine pH 5.0 (5.0-8.0) Ur Specific [place] 1.028 (1.001-1.035) Urine Protein Trace H (Negative) Urine Glucose (UA) Negative (Negative) Urine Ketones Negative (Negative) Urine Blood Negative (Negative) Urine Nitrite Negative (Negative) Urine Bilirubin Negative (Negative) Urine Urobilinogen 2.0 (<2.0) mg/dL Ur Leukocyte Esterase Moderate H (Negative) Urine RBC 5 (0-5) /hpf Urine WBC 27 H (0-5) /hpf Ur Squamous Epith Cells 2 (0-4) /hpf Urine Mucus Few H (None) /hpf Disposition Clinical Impression: Right hip pain, Generalized weakness Disposition: HOME SELF-CARE Condition: Good Instructions (If sedation given, give patient instructions): Fall Prevention for Older Adults (ED) Additional Instructions: Please return to the Emergency Department if symptoms worsen or any other concerns. Is patient prescribed a controlled substance at d/c from ED?: No Referrals: Nishant Huffman DO [Primary Care Provider] - 1-2 days Time of Disposition: 15:12
[2024-11-10 12:19] LABS: Basophils # (A) 0.06 10*3/uL (0.00-0.10); Basophils % (A) 0.6 %; Eosinophils # (A) 0.11 10*3/uL (0.04-0.35); Eosinophils % (A) 1.2 %; HGB 11.5 g/dL (12.0-15.0); Lymphocytes # (A) 0.79 10*3/uL (0.90-5.00); Lymphocytes % (A) 8.4 %; MCHC 32.9 g/dL (32.0-37.0); MCV 100.6 fL (80.0-97.0); Mean Platelet Volume 9.7 fL (9.5-12.2); Monocytes # (A) 0.75 10*3/uL (0.20-1.00); Monocytes % (A) 7.9 %; Neutrophils % (A) 81.5 %; Platelet Count 133 10*3/uL (140-440); RBC 3.48 10*6/uL (4.10-5.20); RDW 16.3 % (11.5-14.5); WBC 9.45 10*3/uL (4.50-10.00)
[2024-11-10] MEDS: SODIUM CHLORIDE 0.9% 1,000 ML IV ONE (12:26)
[2024-11-10] MEDS: MORPHINE SULFATE 4 MG/ML SYRINGE IVP STA (12:26)
[2024-11-10 12:30] LABS: INR 0.9 (<1.2); Partial Thromboplastin Time 25.9 sec (22.0-30.0); Prothrombin Time 10.3 sec (10.0-12.5)
--- NOTE | 2024-11-10 12:31 | XR ---
EXAMINATION TYPE: XR Hip Complete RT DATE OF EXAM: 11/10/2024 12:27 PM INDICATION: Patient age:Female; 84 years old; Reason for study: fall, pain; PHH. pain COMPARISON: CT pelvis 10/24/2024 TECHNIQUE: The right hip was examined in the frontal and lateral projections. FINDINGS: No evidence of any acute osseous pathology, joint dislocation, or soft tissue swelling. Med ial joint space narrowing of the right hip. IMPRESSION: 1. No acute osseous pathology. 2. Mild osteoarthritic changes of the right hip. [facility], , 11/10/2024 12:29 PM
[2024-11-10 12:34] LABS: ALT 22 U/L (4-34); AST 30 U/L (14-36); African American GFR (CKD) 77 (>60 ml/min/1.73 sqM); Albumin 4.3 g/dL (3.5-5.0); Alkaline Phosphatase 116 U/L (38-126); Anion Gap 9 mmol/L; Blood Urea Nitrogen 15 mg/dL (7-17); Calcium 10.6 mg/dL (8.4-10.2); Carbon Dioxide 27 mmol/L (22-30); Chloride 101 mmol/L (98-107); Glucose 89 mg/dL (74-99); Non-African American GFR(CKD) 67 (>60 ml/min/1.73 sqM); Potassium 4.1 mmol/L (3.5-5.1); Sodium 137 mmol/L (137-145); Total Bilirubin 1.3 mg/dL (0.2-1.3); Total Protein 6.8 g/dL (6.3-8.2)
[2024-11-10 14:50] LABS: Appearance,Urine Cloudy (Clear); Bilirubin,Urine Negative (Negative); Blood,Urine Negative (Negative); Color,Urine Yellow; Glucose,Urine (UA) Negative (Negative); Ketones,Urine Negative (Negative); Leukocyte Esterase,Urine Moderate (Negative); Mucus,Urine Few /hpf; Nitrite,Urine Negative (Negative); Protein,Urine Trace (Negative); RBC,Urine 5 /hpf (0-5); Specific Gravity,Urine 1.028 (1.001-1.035); Squamous Epithelial Cell,Urine 2 /hpf (0-4); WBC,Urine 27 /hpf (0-5)
[2024-11-10 15:48] VITALS: BP 138/88; PULSE 76
== END 2024-11-10 16:28 | disposition home or self-care (01) ==
LOC: EC 11:06
DX: M25.551 Pain in right hip (principal); R53.1 Weakness; Z88.8 Allergy status to other drugs, medicaments and biological substances; Z87.891 Personal history of nicotine dependence; Z86.73 Personal history of transient ischemic attack (TIA), and cerebral infarction without residual deficits; W19.XXXA Unspecified fall, initial encounter
CPT/HCPCS: 36415; 93005; 80053; 83605; 83735; 84484; 85025; 85610; 85730; 81001; 87086; 73502; 99284; 96374; 96361; J2270

== ENCOUNTER → 2024-11-27 | Outpatient (CLI) | payer MEDICARE, BC ==
--- NOTE | 2024-11-27 16:46 | NM ---
EXAMINATION TYPE: NM bone scan whole body DATE OF EXAM: 11/27/2024 COMPARISON: Radiograph right hip 11/10/2024 CLINICAL INDICATION: Female, 84 years old with history of right hip and low back pain. Patient with h istory of one cancer diagnosed 5 months ago. Prior left hip surgery in 2017 after fracture. M54.50 LO W BACK PAIN, UNSPECIFIED; Technique: Delayed whole-body scanning was performed following the injection of 25.5 mCi Tc 99m MDP. Images acquired 3 hours post injection. FINDINGS: The patient was unable to lay flat for imaging. Upright imaging was only able to assess the head, nec k, and thorax. Abdomen, pelvis, and bilateral lower extremities could not be imaged. There is degenerative tracer activity at both shoulders and toward the left in the upper cervical spi ne. Suspect some underlying periodontal disease left mandible. IMPRESSION: Only the head, neck, and thorax could be imaged upright. The patient could not lay flat f or complete imaging. Some degenerative tracer activity as outlined above. The lower back and right hi p could not be assessed. [facility], , 11/27/2024 4:44 PM
== END | disposition home or self-care (01) ==
LOC: RADNMMAIN 10:32
PROVIDERS: ATTEND Orthopaedic Surgery Orthopaedic Surgery of the Spine
DX: M54.50 Low back pain, unspecified (principal)
CPT/HCPCS: 78306; A9503

== ENCOUNTER → 2024-12-20 | Outpatient (CLI) | payer MEDICARE, BC | END | disposition home or self-care (01) | LOC: RADNMMAIN 10:10 | PROVIDERS: ATTEND Orthopaedic Surgery Orthopaedic Surgery of the Spine | DX: Z53.9 Procedure and treatment not carried out, unspecified reason (principal) ==

== ENCOUNTER 2024-12-21 09:01 | Inpatient (IN) | payer MEDICARE, BC ==
--- NOTE | 2024-12-21 09:24 | ED ---
General Adult HPI - General Chief complaint: Weakness Stated complaint: Weakness Time Seen by Provider: 12/21/24 09:04 Source: patient, EMS, RN notes reviewed Mode of arrival: EMS Limitations: no limitations - History of Present Illness Initial comments: Patient is an 84-year-old female presenting to the emergency department with concerns with lightheadedness. On symptoms her symptoms was this morning. Patient had some minimal symptoms last night. Patient feels lightheaded, especially when she gets up. Patient has been eating and drinking well. No vomiting. No isolated area of weakness or confusion. Patient does feel a little bit generally weak. Patient does have history of lung cancer with treatment beginning of the year with radiation and chemotherapy however this was discontinued secondary to not being able to tolerate treatments. - Related Data Home Medications Medication Instructions Recorded Confirmed Atorvastatin [Lipitor] 80 mg PO HS 01/03/16 11/10/24 Ascorbic Acid [Vitamin C] 1,000 mg PO DAILY 04/26/24 11/10/24 Cholecalciferol [Vitamin D3 (25 25 mcg PO DAILY 04/26/24 11/10/24 Mcg = 1000 Iu)] Cyanocobalamin [Vitamin B-12] 500 mcg PO DAILY 04/26/24 11/10/24 Famotidine/Ca Carb/Mag Hydrox 1 tab PO DAILY 04/26/24 11/10/24 [Pepcid Complete Tablet Chew] Psyllium Husk [Fiber Capsule] 0.4 gm PO DAILY 04/26/24 11/10/24 Quercetin 500 mg PO DAILY 04/26/24 11/10/24 Omeprazole [PriLOSEC] 20 mg PO BID 09/21/24 11/10/24 Previous Rx's Medication Instructions Recorded Aspirin 81 mg PO DAILY 30 Days #30 tab 06/24/23 Midodrine [ProAmatine] 5 mg PO AC-TID #90 tab 09/26/24 HYDROcodone/APAP 5-325MG [[place] 1 tab PO Q6HR PRN 3 Days #12 tab 10/24/24 5-325] Spironolactone [Aldactone] 25 mg PO DAILY #30 tablet 10/29/24 Allergies Allergy/AdvReac Type Severity Reaction Status Date / Time lacosamide [From Vimpat] AdvReac AMS Verified 12/21/24 09:11 levetiracetam [From Keppra] AdvReac AMS Verified 12/21/24 09:11 Review of Systems ROS Statement: Those systems with pertinent positive or pertinent negative responses have been documented in the HPI. ROS Other: All systems not noted in ROS Statement are negative. Constitutional: Denies: fever Eyes: Denies: eye pain ENT: Denies: ear pain Respiratory: Denies: cough, dyspnea Cardiovascular: Denies: chest pain Endocrine: Reports: fatigue Gastrointestinal: Denies: abdominal pain Neurological: Reports: as per HPI. Denies: headache, confusion Past Medical History Past Medical History: Atrial Fibrillation, Coronary Artery Disease (CAD), Cancer, COPD, CVA/TIA, GERD/Reflux, GI Bleed, Hyperlipidemia, Hypertension, Myocardial Infarction (NH), Osteoarthritis (OA), Vascular Disorder Additional Past Medical History / Comment(s): left lung CA, 07/2024 with chemo and radiation. 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, 02/2020 TIA, TIA 10/2022, carotid stenosis with L c arotid endartectomy, pt states she has had irregular heart beat in past but cannot recall type, aortic stenosis/regurgitation, vertigo, balance issues-uses walker, back pain/disc problems, benign colon polyp,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, Lung CA Last Myocardial Infarction Date:: 2000 History of Any Multi-Drug Resistant Organisms: None Reported Past Surgical History: AICD, Appendectomy, Bowel Resection, Cholecystectomy, Coronary Bypass/CABG, Heart Catheterization With Stent, Hernia Repair, Orthopedic Surgery Additional Past Surgical History / Comment(s): Arch studies, 2000 PCI with stents, 2002 CABG-3 vessel, 2002 AICD, AICD gen changes, DFTs, 2002 L carotid endartectomy, bowel resection for benign flat polyp, abdominal hernia repair, L hip fracture with surgery, L arm benign lesion removed, colonoscopies/polyps, ALEXIS Past Anesthesia/Blood Transfusion Reactions: No Reported Reaction, Motion Sickness Additional Past Anesthesia/Blood Transfusion Reaction / Comment(s): woke up during battery replacement in defibrillator Date of Last Stent Placement:: 2000 Type of Cardiac Device: AICD Device Placement Date:: 2002- [facility] Past Psychological History: Anxiety Smoking Status: Former smoker Past Alcohol Use History: None Reported Past Drug Use History: None Reported - Past Family History Sister(s) Family Medical History: Cancer Additional Family Medical History / Comment(s): Sister had breast/bladder cancers. Son(s) Family Medical History: Cancer Additional Family Medical History / Comment(s): pancreatic cancer Father Family Medical History: Cancer Additional Family Medical History / Comment(s): Bowel cancer. Mother Family Medical History: Cancer Additional Family Medical History / Comment(s): Mother had bowel cancer twice and 2nd time metastasized to her kidney. General Exam Limitations: no limitations General appearance: alert, in no apparent distress Head exam: Present: atraumatic, normocephalic Eye exam: Present: normal appearance, PERRL, EOMI ENT exam: Present: normal oropharynx Neck exam: Present: normal inspection. Absent: tenderness Respiratory exam: Present: normal lung sounds bilaterally Cardiovascular Exam: Present: regular rate, normal rhythm GI/Abdominal exam: Present: soft. Absent: tenderness Extremities exam: Present: normal inspection. Absent: pedal edema, calf tenderness Neurological exam: Present: alert, oriented X3, CN II-XII intact. Absent: motor sensory deficit Expanded Neurological exam: Present: protecting the airway Speech: Present: fluid speech Cranial nerves: EOM's Intact: Normal Sensory exam: Upper Extremity Light Touch: Normal, Lower Extremity Light Touch: Normal Motor strength exam: RUE: 5, LUE: 5, RLE: 5, LLE: 5 Eye Response: (4) open spontaneously Motor Response: (6) obeys commands Verbal Response: (5) oriented Psychiatric exam: Present: normal affect, normal mood Skin exam: Present: normal color Course Vital Signs 12/21/24 12/21/24 12/21/24 09:05 09:42 09:51 Temperature 98.2 F Pulse Rate 72 72 Respiratory 16 16 Rate Blood Pressure 117/75 103/67 Blood Pressure 124/85 [Sitting] Blood Pressure 109/65 [Standing] Blood Pressure 114/81 [Supine] O2 Sat by Pulse 96 96 Oximetry 12/21/24 12/21/24 12:27 13:15 Temperature Pulse Rate 78 80 Respiratory 16 18 Rate Blood Pressure 111/58 137/117 Blood Pressure [Sitting] Blood Pressure [Standing] Blood Pressure [Supine] O2 Sat by Pulse 97 97 Oximetry EKG Findings - EKG Results: EKG: interpreted by ERMD (Q wave V1 V2), sinus rhythm, normal axis, normal ST/T Medical Decision Making - Medical Decision Making Was pt. sent in by a medical professional or institution (, MARINA, CORROSION CONTROL SPECIALIST, urgent care, hospital, or snf...) When possible be specific @ -No Did you speak to anyone other than the patient for history (EMS, parent, family, police, friend...)? What history was obtained from this source @ -No Did you review nursing and triage notes (agree or disagree)? Why? @ -I reviewed and agree with nursing and triage notes Were old charts reviewed (outside hosp., previous admission, EMS record, old EKG, old radiological studies, urgent care reports/EKG's, snf records)? Report findings @ -No old charts were reviewed Differential Diagnosis (chest pain, altered mental status, abdominal pain women, abdominal pain men, vaginal bleeding, weakness, fever, dyspnea, syncope, h eadache, dizziness, GI bleed, back pain, seizure, CVA, palpatations, mental health, musculoskeletal)? @ -Differential Dizziness: Benign paroxysmal positional Vertigo, Meniere's disease, otitis media, acoustic neuroma, vertebrobasilar insufficiency, cerebellar stroke, encephalitis, hypovolemic, arrhythmia, coronary artery syndrome, anemia, this is not meant to be an all-inclusive list EKG interpreted by me (3pts min.). @ -As above X-rays interpreted by me (1pt min.). @ -Chest x-ray shows postoperative changes CT interpreted by me (1pt min.). @ -CT scan of the brain without acute intercranial abnormality U/S interpreted by me (1pt. min.). @ -None done What testing was considered but not performed or refused? (CT, X-rays, U/S, labs)? Why? @ -None What meds were considered but not given or refused? Why? @ -None Did you discuss the management of the patient with other professionals ( professionals i.e. MARINA Pak, CORROSION CONTROL SPECIALIST, lab, RT, psych nurse, manager social work, marketing instructor, teacher, special officer automat, catalytic case operator)? Give summary @ -Case was discussed with Dr. Monsivais who will admit covering Dr. Mack for us. Patient did request not having Dr. Pool. Was smoking cessation discussed for >3mins.? @ -No Was critical care preformed (if so, how long)? @ -No Were there social determinants of health that impacted care today? How? (Homelessness, low income, unemployed, alcoholism, drug addiction, tr ansportation, low edu. Level, literacy, decrease access to med. care, longterm, rehab)? @ -No Was there de-escalation of care discussed even if they declined (Discuss DNR or withdrawal of care, Hospice)? DNR status @ -No What co-morbidities impacted this encounter? (DM, HTN, Smoking, COPD, CAD, Cancer, CVA, ARF, Chemo, Hep., AIDS, mental health diagnosis, sleep apnea, morbid obesity)? @ -None Was patient admitted / discharged? Hospital course, mention meds given and route, prescriptions, significant lab abnormalities, going to OR and other pertinent info. @ -Patient presents with lightheadedness. Despite medication and fluids patient still have difficulty getting up and ambulated. Patient does have evidence of urinary tract infection. Patient will be admitted. IV antibiotics ordered. Neuro will be placed on consult. Undiagnosed new problem with uncertain prognosis? @ -No Drug Therapy requiring intensive monitoring for toxicity (Heparin, Nitro, Insulin, Cardizem)? @ -No Were any procedures done? @ -No Diagnosis/symptom? @ -UTI, lightheadedness Acute, or Chronic, or Acute on Chronic? @ -Acute, acute Uncomplicated (without systemic symptoms) or Complicated (systemic symptoms)? @ -Default Side effects of treatment? @ -No Exacerbation, Progression, or Severe Exacerbation? @ -No Poses a threat to life or bodily function? How? (Chest pain, USA, NH, pneumonia, PE, COPD, DKA, ARF, appy, cholecystitis, CVA, Diverticulitis, Homicidal, Suicidal, threat to staff... and all critical care pts) @ -No - Lab Data Result diagrams: 12/21/24 09:40 12/21/24 09:40 Lab Results 12/21/24 12/21/24 12/21/24 Range/Units 09:40 09:40 09:40 WBC 6.69 (4.50-10.00) 10*3/uL RBC 3.60 L (4.10-5.20) 10*6/uL Hgb 11.2 L (12.0-15.0) g/dL Hct 34.5 L (37.2-46.3) % MCV 95.8 (80.0-97.0) fL MCH 31.1 (27.0-32.0) pg MCHC 32.5 (32.0-37.0) g/dL Plt Count 180 (140-440) 10*3/uL MPV 9.2 L (9.5-12.2) fL Immature Gran % (Auto) 0.1 % Neutrophils % 70.7 % Lymphocytes % 16.0 % Monocytes % 11.1 % Eosinophils % 1.5 % Basophils % 0.6 % Immature Gran # 0.01 (0.00-0.04) 10*3/uL Neutrophils # 4.73 (1.80-7.70) 10*3/uL Lymphocytes # 1.07 (0.90-5.00) 10*3/uL Monocytes # 0.74 (0.20-1.00) 10*3/uL Eosinophils # 0.10 (0.04-0.35) 10*3/uL Basophils # 0.04 (0.00-0.10) 10*3/uL PT 10.8 (10.0-12.5) sec INR 1.0 (<1.2) APTT 28.0 (22.0-30.0) sec Sodium (137-145) mmol/L Potassium 4.4 (3.5-5.1) mmol/L Chloride 103 (98-107) mmol/L Carbon Dioxide 28 (22-30) mmol/L Anion Gap 5 mmol/L BUN 13 (7-17) mg/dL Creatinine 0.66 (0.52-1.04) mg/dL Est GFR (CKD-EPI)AfAm >90 (>60 ml/min/1.73 sqM) Est GFR (CKD-EPI)NonAf 83 (>60 ml/min/1.73 sqM) Glucose 109 H (74-99) mg/dL Plasma Lactic Acid Ezequiel (0.7-2.0) mmol/L Calcium 10.3 H (8.4-10.2) mg/dL Magnesium 1.9 (1.6-2.3) mg/dL Total Bilirubin 0.8 (0.2-1.3) mg/dL AST 32 (14-36) U/L ALT 23 (4-34) U/L Alkaline Phosphatase 129 H (38-126) U/L Total Protein 6.4 (6.3-8.2) g/dL Albumin 3.9 (3.5-5.0) g/dL TSH 0.858 (0.465-4.680) mIU/L Urine Color Urine Appearance (Clear) Urine pH (5.0-8.0) Ur Specific [place] (1.001-1.035) Urine Protein (Negative) Urine Glucose (UA) (Negative) Urine Ketones (Negative) Urine Blood (Negative) Urine Nitrite (Negative) Urine Bilirubin (Negative) Urine Urobilinogen (<2.0) mg/dL Ur Leukocyte Esterase (Negative) Urine RBC (0-5) /hpf Urine WBC (0-5) /hpf Urine WBC Clumps (None) /hpf Ur Squamous Epith Cells (0-4) /hpf Urine Bacteria (None) /hpf Urine Mucus (None) /hpf 12/21/24 12/21/24 Range/Units 09:40 11:24 WBC (4.50-10.00) 10*3/uL RBC (4.10-5.20) 10*6/uL Hgb (12.0-15.0) g/dL Hct (37.2-46.3) % MCV (80.0-97.0) fL MCH (27.0-32.0) pg MCHC (32.0-37.0) g/dL Plt Count (140-440) 10*3/uL MPV (9.5-12.2) fL Immature Gran % (Auto) % Neutrophils % % Lymphocytes % % Monocytes % % Eosinophils % % Basophils % % Immature Gran # (0.00-0.04) 10*3/uL Neutrophils # (1.80-7.70) 10*3/uL Lymphocytes # (0.90-5.00) 10*3/uL Monocytes # (0.20-1.00) 10*3/uL Eosinophils # (0.04-0.35) 10*3/uL Basophils # (0.00-0.10) 10*3/uL PT (10.0-12.5) sec INR (<1.2) APTT (22.0-30.0) sec Sodium (137-145) mmol/L Potassium (3.5-5.1) mmol/L Chloride (98-107) mmol/L Carbon Dioxide (22-30) mmol/L Anion Gap mmol/L BUN (7-17) mg/dL Creatinine (0.52-1.04) mg/dL Est GFR (CKD-EPI)AfAm (>60 ml/min/1.73 sqM) Est GFR (CKD-EPI)NonAf (>60 ml/min/1.73 sqM) Glucose (74-99) mg/dL Plasma Lactic Acid [place] 1.0 (0.7-2.0) mmol/L Calcium (8.4-10.2) mg/dL Magnesium (1.6-2.3) mg/dL Total Bilirubin (0.2-1.3) mg/dL AST (14-36) U/L ALT (4-34) U/L Alkaline Phosphatase (38-126) U/L Total Protein (6.3-8.2) g/dL Albumin (3.5-5.0) g/dL TSH (0.465-4.680) mIU/L Urine Color Light Yellow Urine Appearance Cloudy H (Clear) Urine pH 5.5 (5.0-8.0) Ur Specific [place] 1.018 (1.001-1.035) Urine Protein Trace H (Negative) Urine Glucose (UA) Negative (Negative) Urine Ketones Negative (Negative) Urine Blood Negative (Negative) Urine Nitrite Negative (Negative) Urine Bilirubin Negative (Negative) Urine Urobilinogen <2.0 (<2.0) mg/dL Ur Leukocyte Esterase Large H (Negative) Urine RBC 7 H (0-5) /hpf Urine WBC >182 H (0-5) /hpf Urine WBC Clumps Occasional H (None) /hpf Ur Squamous Epith Cells 1 (0-4) /hpf Urine Bacteria Occasional H (None) /hpf Urine Mucus Rare H (None) /hpf Disposition Clinical Impression: UTI (urinary tract infection), Lightheadedness Disposition: ADMITTED IP TO THIS HOSP Is patient prescribed a controlled substance at d/c from ED?: No Referrals: Nishant Huffman DO [Primary Care Provider] - 1-2 days Time of Disposition: 14:01
[2024-12-21 10:02] LABS: Basophils # (A) 0.04 10*3/uL (0.00-0.10); Basophils % (A) 0.6 %; Eosinophils % (A) 1.5 %; HCT 34.5 % (37.2-46.3); HGB 11.2 g/dL (12.0-15.0); Lymphocytes # (A) 1.07 10*3/uL (0.90-5.00); MCH 31.1 pg (27.0-32.0); MCHC 32.5 g/dL (32.0-37.0); MCV 95.8 fL (80.0-97.0); Mean Platelet Volume 9.2 fL (9.5-12.2); Monocytes # (A) 0.74 10*3/uL (0.20-1.00); Monocytes % (A) 11.1 %; Neutrophils # (A) 4.73 10*3/uL (1.80-7.70); Neutrophils % (A) 70.7 %; Platelet Count 180 10*3/uL (140-440); RDW 15.2 % (11.5-14.5); WBC 6.69 10*3/uL (4.50-10.00)
[2024-12-21 10:12] LABS: Prothrombin Time 10.8 sec (10.0-12.5)
[2024-12-21] MEDS: SODIUM CHLORIDE 0.9% 1,000 ML IV SCH (10:20)
--- NOTE | 2024-12-21 10:21 | CT ---
EXAMINATION TYPE: CT brain wo con DATE OF EXAM: 12/21/2024 10:11 AM COMPARISON: None. CLINICAL INDICATION: Female, 84 years old with history of weakness, Weakness TECHNIQUE: CT of the brain is performed utilizing 3 mm thick sections through the posterior fossa and 3 mm thick sections through the remaining calvarium. Study is performed within 24 hours of arrival to the hospital. Contrast used: mL of , (none if empty) CT DLP: 1141.4 mGycm, Automated exposure control for dose reduction was used. FINDINGS: No abnormal hyperdensity is present to suggest an acute intracranial hemorrhage. No mass lesion is evident. No acute infarcts are evident. There is a lacunar infarct within the right basal ganglion. Patchy per iventricular white matter hypodensity is present likely on the basis of chronic white matter ischemic changes. Ventricles and sulci are prominent for the patient age. Paranasal sinuses and mastoid air cells within the [id number] are clear. IMPRESSION: 1. No acute intracranial process. Follow up MRI can be performed as clinically indicated. 2. Chronic appearing periventricular white matter ischemic changes. 3. Old right basal ganglion infarct [facility], , 12/21/2024 10:19 AM
[2024-12-21 10:22] LABS: ALT 23 U/L (4-34); AST 32 U/L (14-36); African American GFR (CKD) >90 (>60 ml/min/1.73 sqM); Albumin 3.9 g/dL (3.5-5.0); Alkaline Phosphatase 129 U/L (38-126); Anion Gap 5 mmol/L; Blood Urea Nitrogen 13 mg/dL (7-17); Calcium 10.3 mg/dL (8.4-10.2); Carbon Dioxide 28 mmol/L (22-30); Chloride 103 mmol/L (98-107); Glucose 109 mg/dL (74-99); Magnesium 1.9 mg/dL (1.6-2.3); Non-African American GFR(CKD) 83 (>60 ml/min/1.73 sqM); Potassium 4.4 mmol/L (3.5-5.1); Total Bilirubin 0.8 mg/dL (0.2-1.3); Total Protein 6.4 g/dL (6.3-8.2)
--- NOTE | 2024-12-21 10:22 | XR ---
EXAMINATION TYPE: XR chest 2V DATE OF EXAM: 12/21/2024 10:15 AM COMPARISON: 10/26/2024 CLINICAL INDICATION: Female, 84 years old with history of Weakness, TECHNIQUE: XR chest 2V view(s) obtained. FINDINGS: The heart size is normal. Pacemaker overlies left chest. Sternotomy wires are in the midline. The pulmonary vasculature is normal. The lungs are clear. IMPRESSION: 1. No acute pulmonary process. [facility], , 12/21/2024 10:20 AM
[2024-12-21 11:35] LABS: Appearance,Urine Cloudy (Clear); Bilirubin,Urine Negative (Negative); Blood,Urine Negative (Negative); Color,Urine Light Yellow; Glucose,Urine (UA) Negative (Negative); Ketones,Urine Negative (Negative); Leukocyte Esterase,Urine Large (Negative); Nitrite,Urine Negative (Negative); PH, Urine 5.5 (5.0-8.0); Protein,Urine Trace (Negative); Specific Gravity,Urine 1.018 (1.001-1.035); Urobilinogen,Urine <2.0 mg/dL (<2.0)
[2024-12-21 11:36] LABS: Bacteria,Urine Occasional /hpf; Mucus,Urine Rare /hpf; RBC,Urine 7 /hpf (0-5); Squamous Epithelial Cell,Urine 1 /hpf (0-4); WBC,Urine >182 /hpf (0-5)
[2024-12-21] MEDS: SODIUM CHLORIDE 0.9% 500 ML 500 ML IV STA (12:26)
[2024-12-21] MEDS: MECLIZINE 12.5 MG TAB PO STA (12:26)
[2024-12-21] MEDS ORDERED: NALOXONE 0.4 MG/ML 1 ML VIAL IV PRN (14:01)
[2024-12-21] MEDS ORDERED: ACETAMINOPHEN TAB 325 MG TAB PO PRN (14:01)
[2024-12-21] MEDS ORDERED: MECLIZINE 25 MG TAB PO PRN (14:02)
[2024-12-21] MEDS: METOCLOPRAMIDE 10 MG TAB PO SCH (18:07)
[2024-12-22 08:17] LABS: Basophils # (A) 0.05 X 10*3/uL (0.00-0.10); Basophils % (A) 0.8 %; Eosinophils # (A) 0.14 X 10*3/uL (0.04-0.35); Eosinophils % (A) 2.4 %; HCT 32.5 % (37.2-46.3); HGB 10.3 g/dL (12.0-15.0); Lymphocytes # (A) 1.16 X 10*3/uL (0.90-5.00); Lymphocytes % (A) 19.6 %; MCH 30.4 pg (27.0-32.0); MCHC 31.7 g/dL (32.0-37.0); MCV 95.9 FL (80.0-97.0); Mean Platelet Volume 9.3 FL (9.5-12.2); Monocytes % (A) 11.8 %; NRBC Per 100 WBC 0 X 10*3/uL (0.00-0.01); Neutrophils # (A) 3.84 X 10*3/uL (1.80-7.70); Neutrophils % (A) 65.1 %; Platelet Count 160 X 10*3/uL (140-440); RBC 3.39 X 10*6/uL (4.10-5.20); RDW 15.2 % (11.5-14.5); WBC 5.91 X 10*3/uL (4.50-10.00)
[2024-12-22 08:29] LABS: ALT 22 U/L (8-44); AST 29 U/L (13-35); Albumin 3.9 g/dL (3.8-4.9); Albumin/Globulin Ratio 2.05 Ratio (1.60-3.17); Alkaline Phosphatase 114 U/L (41-126); Blood Urea Nitrogen 9.3 mg/dL (9.0-27.0); Calcium 9.9 mg/dL (8.7-10.3); Carbon Dioxide 25.1 mmol/L (21.6-31.8); Chloride 107 mmol/L (96-109); Globulin 1.9 g/dL (1.6-3.3); Glucose 91 mg/dL (70-110); Potassium 4.2 mmol/L (3.5-5.5); Sodium 140 mmol/L (135-145); Total Bilirubin 0.5 mg/dL (0.3-1.2); Total Protein 5.8 g/dL (6.2-8.2)
[2024-12-22 11:40] VITALS: BMI 20.7
[2024-12-22] MEDS: FAMOTIDINE 20 MG TAB PO SCH (20:10)
--- NOTE | 2024-12-22 22:20 | P.HPIM ---
History of Present Illness H&P Date: 12/22/24 Chief Complaint: Dizziness and lightheadedness Patient is a 84-year-old female with a past medical history of atrial fibrillation, coronary artery disease history of CABG, history of AICD placement, prior history of stent placement, history of CVA/TIA with no residual weakness, carotid stenosis with left carotid endarterectomy, aortic stenosis, left lung cancer with chemo and radiation in July 2024, history of GI bleed, hypertension, hyperemia, history of [place], COPD, anxiety and prior history of smoking. Patient presents to ER with complaints of dizziness and lighthe adedness. Patient does have history of vertigo-like symptoms. She feels lightheaded and dizzy when she gets up from bed. She was also not feeling well and not eating or drinking. Denied any nausea or vomiting. No focal weakness. Patient does have a history of lung cancer in July 2024 with radiation and chemotherapy however this was discontinued secondary to patient not being able to tolerate treatments. Laboratory data showed WBC 6.69 hemoglobin 11.2 and platelets 180 Sodium 140 potassium 4.2 chloride 107 bicarb is 25.1 BUN 9.3 and creatinine 0.6 and blood sugar 91, calcium 9.9 liver enzymes are not elevated and TSH 0.858 Urinalysis showed cloudy with trace protein large leukocyte esterase with elevated RBCs and WBCs. Squamous epithelial cells 1. CT head showed no acute intracranial process. Follow-up MRI can be performed as clinically indicated. Chronic appearing periventricular white matter ischemic changes. Old right basal ganglia infarct. Chest x-ray showed no acute cardiopulmonary process. EKG showed sinus rhythm with possible left atrial enlargement. Patient was recently admitted to the hospital with dizziness and recurrent UTI. EEG at that time showed left parietal discharges and was started on Depakote by neurology. Patient was previously taking Vimpat and Keppra which she did not tolerate. Defibrillator was also interrogated showed no evidence of arrhythmia. Seen by cardiology as well. Review of Systems Constitutional: Patient denies any fever or chills . No generalized weakness or weight loss. Abdomen: Patient denied nausea vomiting and diarrhea and abdominal pain. Cardiovascular: Patient denies any chest pain or short of breath no palpitations. Respiratory: patient denied any cough or sputum production. No shortness of breath Neurologic: Patient denied any numbness or tingling. no headache. Dizziness and lightheadedness Musculoskeletal: Patient denies any complaints of joint swelling or deformity. Skin: Negative Psychiatric: Negative Endocrine: No heat or cold intolerance. No recent weight gain. Genitourinary: No dysuria or hematuria. All other 14 point ROS negative except the above Past Medical History Past Medical History: Atrial Fibrillation, Coronary Artery Disease (CAD), Cancer, COPD, CVA/TIA, GERD/Reflux, GI Bleed, Hyperlipidemia, Hypertension, Myocardial Infarction ([place]), Osteoarthritis (OA), Vascular Disorder Additional Past Medical History / Comment(s): left lung CA, 07/2024 with chemo and radiation. 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, 02/2020 TIA, TIA 10/2022, carotid stenosis with L carotid endartectomy, pt states she has had irregular heart beat in past but cannot recall type, aortic stenosis/regurgitation, vertigo, balance issues-uses walker, back pain/disc problems, benign colon polyp,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, Lung CA Last Myocardial Infarction Date:: 2000 History of Any Multi-Drug Resistant Organisms: None Reported Past Surgical History: AICD, Appendectomy, Bowel Resection, Cholecystectomy, Coronary Bypass/CABG, Heart Catheterization With Stent, Hernia Repair, Orthopedic Surgery Additional Past Surgical History / Comment(s): Arch studies, 2000 PCI with sten ts, 2002 CABG-3 vessel, 2002 AICD, AICD gen changes, DFTs, 2002 L carotid endartectomy, bowel resection for benign flat polyp, abdominal hernia repair, L hip fracture with surgery, L arm benign lesion removed, colonoscopies/polyps, ALEXIS Past Anesthesia/Blood Transfusion Reactions: Motion Sickness Additional Past Anesthesia/Blood Transfusion Reaction / Comment(s): woke up during battery replacement in defibrillator Date of Last Stent Placement:: 2000 Type of Cardiac Device: AICD Device Placement Date:: 2002- [facility] Past Psychological History: Anxiety Additional Psychological History / Comment(s): She uses a walker. She no longer drives, her granddaughter drives her. Smoking Status: Former smoker Past Alcohol Use History: None Reported Additional Past Alcohol Use History / Comment(s): Pt started smoking in 1969 and was a ppd smoker then cut down to 5 cigarettes a day and recently quit on 10/02/21. States she smoked 60 years Past Drug Use History: None Reported - Past Family History Sister(s) Family Medical History: Cancer Additional Family Medical History / Comment(s): Sister had breast/bladder cancers. Son(s) Family Medical History: Cancer Additional Family Medical History / Comment(s): pancreatic cancer Father Family Medical History: Cancer Additional Family Medical History / Comment(s): Bowel cancer. Mother Family Medical History: Cancer Additional Family Medical History / Comment(s): Mother had bowel cancer twice and 2nd time metastasized to her kidney. Medications and Allergies Home Medications Medication Instructions Recorded Confirmed Type Aspirin 81 mg PO DAILY 30 Days #30 tab 06/24/23 12/21/24 Rx Ascorbic Acid [Vitamin C] 1,000 mg PO DAILY 04/26/24 12/21/24 History Cholecalciferol [Vitamin D3 (25 25 mcg PO DAILY 04/26/24 12/21/24 History Mcg = 1000 Iu)] Cyanocobalamin [Vitamin B-12] 500 mcg PO DAILY 04/26/24 12/21/24 History Famotidine/Ca Carb/Mag Hydrox 1 tab PO DAILY 04/26/24 12/21/24 History [Pepcid Complete Tablet Chew] Psyllium Husk [Fiber Capsule] 0.4 gm PO DAILY 04/26/24 12/21/24 History Quercetin 500 mg PO DAILY 04/26/24 12/21/24 History Allergies Allergy/AdvReac Type Severity Reaction Status Date / Time lacosamide [From Vimpat] AdvReac AMS Verified 12/21/24 09:11 levetiracetam [From Keppra] AdvReac AMS Verified 12/21/24 09:11 Physical Exam Vitals: Vital Signs Temp Pulse Pulse Pulse Resp BP BP 12/22/24 11:42 97.8 F 76 16 133/80 12/22/24 07:05 98.0 F 76 17 127/75 12/22/24 01:14 97.6 F 76 16 129/71 12/21/24 19:12 97.9 F 74 16 144/79 12/21/24 18:39 98.7 F 83 16 132/74 12/21/24 18:24 98.1 F 72 16 129/79 Pulse Ox 12/22/24 11:42 93 L 12/22/24 07:05 93 L 12/22/24 01:14 93 L 12/21/24 19:12 95 12/21/24 18:39 96 12/21/24 18:24 94 L Intake and Output 12/22/24 12/22/24 12/22/24 06:59 14:59 22:59 Intake Total 720 Balance 720 Intake: Oral 720 Other: # Voids 1 Weight 56.699 kg PHYSICAL EXAMINATION: Patient is lying in the bed comfortably, no acute distress, awake alert and oriented.. HEENT: Normocephalic. Neck is supple. Pupils reactive. Nostrils clear. Oral cavity is moist. Neck reveals no JVD, carotid bruits, or thyromegaly. CHEST EXAMINATION: Trachea is central. Symmetrical expansion. Lung melendez clear to auscultation and percussion. CARDIAC: Normal S1, S2 with no gallops. No murmurs ABDOMEN: Soft. Bowel sounds normal. No organomegaly. No abdominal bruits. Extremities: reveal no edema. No clubbing or cyanosis Neurologically awake, alert, oriented x3 with well-coordinated movements. No focal deficits noted Skin: No rash or skin lesions. Psychiatric: Coperative. Nonsuicidal Musculoskeletal: No joint swelling or deformity. Normal range of motion. Results CBC & Chem 7: 12/22/24 05:40 12/22/24 05:40 Labs: Abnormal Lab Results - Last 24 Hours (Table) 12/22/24 12/22/24 Range/Units 05:40 05:40 RBC 3.39 L (4.10-5.20) X 10*6/uL Hgb 10.3 L (12.0-15.0) g/dL Hct 32.5 L (37.2-46.3) % MCHC 31.7 L (32.0-37.0) g/dL RDW 15.2 H (11.5-14.5) % MPV 9.3 L (9.5-12.2) FL Total Protein 5.8 L (6.2-8.2) g/dL Microbiology - Last 24 Hours (Table) 12/21/24 11:24 Urine Culture - Preliminary Urine,Voided Gram Neg Bacilli Thrombosis Risk Factor Assmnt - DVT/VTE Prophylaxis DVT/VTE Prophylaxis: Pharmacologic Prophylaxis ordered - Choose All That Apply Each Factor Represents 1 point: Abnormal pulmonary function (COPD) Each Risk Factor Represents 3 Points: Age 75 years or older Thrombosis Risk Factor Assessment Total Risk Factor Score: 4 Thrombosis Risk Factor Assessment Level: Moderate Risk Assessment and Plan Assessment: Acute urinary tract infection Dizziness and lightheadedness likely positional vertigo. Rule out orthostatic hypotension History of seizures in the past. Recent EEG showed left parietal epileptiform discharges. She was started on Depakote. Recent E. coli urinary tract infection Limited stage small cell lung cancer. Status post chemo and radiation in July 2024. Patient has trouble laying on the table because of right hip pain and has decided against further chemo or radiation treatment. Mild dysphagia from presbyesophagus. Fluoroscopy with barium swallow done recently. Continue soft diet. Hyperlipidemia Advanced degenerative disease Coronary history of CABG and prior history of PCI. Chronic CHF with ejection fraction 40 to 45%. Status post AICD placement Aortic stenosis status post TAVR COPD not in exacerbation Anemia of chronic disease Thoracoabdominal and infrarenal aortic aneurysm. On outpatient follow-up with Dr. Gross CODE STATUS DNR/DNI Plan: Patient will be continued on gentle IV hydration. Continue with IV ceftriaxone follow-up urine culture report. Continue with meclizine as needed for dizziness/vertigo. Continue with aspirin and statin. Start back on Depakote 5 mg twice daily as per recent neurology recommendations. Patient was also on midodrine 5 mg AC 3 times daily. Continue to follow closely. Symptomatic management. Prognosis guarded. Time with Patient: Greater than 30
[2024-12-23 07:34] LABS: Basophils # (A) 0.04 10*3/uL (0.00-0.10); Basophils % (A) 0.7 %; Eosinophils # (A) 0.19 10*3/uL (0.04-0.35); Eosinophils % (A) 3.1 %; HGB 11.6 g/dL (12.0-15.0); Lymphocytes % (A) 21.2 %; MCH 31.1 pg (27.0-32.0); MCHC 32.2 g/dL (32.0-37.0); MCV 96.5 fL (80.0-97.0); Mean Platelet Volume 9.1 fL (9.5-12.2); Monocytes # (A) 0.69 10*3/uL (0.20-1.00); Monocytes % (A) 11.3 %; Neutrophils # (A) 3.88 10*3/uL (1.80-7.70); Neutrophils % (A) 63.4 %; Platelet Count 181 10*3/uL (140-440); RBC 3.73 10*6/uL (4.10-5.20); WBC 6.12 10*3/uL (4.50-10.00)
[2024-12-23 07:44] LABS: African American GFR (CKD) >90 (>60 ml/min/1.73 sqM); Anion Gap 6 mmol/L; Blood Urea Nitrogen 9 mg/dL (7-17); Calcium 10.3 mg/dL (8.4-10.2); Carbon Dioxide 29 mmol/L (22-30); Chloride 103 mmol/L (98-107); Glucose 96 mg/dL (74-99); Non-African American GFR(CKD) 84 (>60 ml/min/1.73 sqM); Potassium 3.6 mmol/L (3.5-5.1); Sodium 138 mmol/L (137-145)
[2024-12-23] MEDS: ASPIRIN 81 MG PO SCH (09:45)
[2024-12-23] MEDS: CHOLECALCIFEROL 25 MCG (1000 IU) TABLET PO SCH (09:45)
[2024-12-23] MEDS: DIVALPROEX 500 MG TABLET.DR PO SCH (09:46)
[2024-12-23] MEDS: CYANOCOBALAMIN 500 MCG TAB PO SCH (09:46)
[2024-12-23] MEDS: ASCORBIC ACID 500 MG TAB PO SCH (09:46)
[2024-12-23] MEDS: ATORVASTATIN 20 MG TAB PO SCH (20:49)
[2024-12-25] MEDS: MIDODRINE 5 MG TAB PO SCH (07:58)
[2024-12-25 08:09] LABS: Basophils # (A) 0.06 X 10*3/uL (0.00-0.10); Eosinophils # (A) 0.26 X 10*3/uL (0.04-0.35); Eosinophils % (A) 4.3 %; HCT 36.6 % (37.2-46.3); HGB 11.6 g/dL (12.0-15.0); Lymphocytes # (A) 1.64 X 10*3/uL (0.90-5.00); Lymphocytes % (A) 26.9 %; MCH 30.8 pg (27.0-32.0); MCHC 31.7 g/dL (32.0-37.0); MCV 97.1 FL (80.0-97.0); Mean Platelet Volume 9.5 FL (9.5-12.2); Monocytes % (A) 9.9 %; NRBC Per 100 WBC 0 X 10*3/uL (0.00-0.01); Neutrophils # (A) 3.51 X 10*3/uL (1.80-7.70); Neutrophils % (A) 57.6 %; Platelet Count 194 X 10*3/uL (140-440); RBC 3.77 X 10*6/uL (4.10-5.20); RDW 15.6 % (11.5-14.5); WBC 6.09 X 10*3/uL (4.50-10.00)
[2024-12-25 09:04] LABS: BUN/Creat Ratio 22.43 Ratio (12.00-20.00); Blood Urea Nitrogen 15.7 mg/dL (9.0-27.0); Calcium 10.5 mg/dL (8.7-10.3); Carbon Dioxide 26.7 mmol/L (21.6-31.8); Chloride 105 mmol/L (96-109); Glucose 87 mg/dL (70-110); Potassium 4.7 mmol/L (3.5-5.5); Sodium 141 mmol/L (135-145)
--- NOTE | 2024-12-25 20:16 | P.PN ---
Subjective Progress Note Date: 12/23/24 Patient is a 84-year-old female with a past medical history of atrial fibrillation, coronary artery disease history of CABG, history of AICD placement, prior history of stent placement, history of CVA/TIA with no residual weakness, carotid stenosis with left carotid endarterectomy, aortic stenosis, left lung cancer with chemo and radiation in July 2024, history of GI bleed, hypertension, hyperemia, history of [place], COPD, anxiety and prior history of smoking. Patient presents to ER with complaints of dizziness and lightheadedness. Patient does have history of vertigo-like symptoms. She feels lightheaded and dizzy when she gets up from bed. She was also not feeling well and not eating or drinking. Denied any nausea or vomiting. No focal weakness. Patient does have a history of lung cancer in July 2024 with radiation and chemotherapy however this was discontinued secondary to patient not being able to tolerate treatments. Laboratory data showed WBC 6.69 hemoglobin 11.2 and platelets 180 Sodium 140 potassium 4.2 chloride 107 bicarb is 25.1 BUN 9.3 and creatinine 0.6 and blood sugar 91, calcium 9.9 liver enzymes are not elevated and TSH 0.858 Urinalysis showed cloudy with trace protein large leukocyte esterase with elevated RBCs and WBCs. Squamous epithelial cells 1. CT head showed no acute intracranial process. Follow-up MRI can be performed as clinically indicated. Chronic appearing periventricular white matter ischemic changes. Old right basal ganglia infarct. Chest x-ray showed no acute cardiopulmonary process. EKG showed sinus rhythm with possible left atrial enlargement. Patient was recently admitted to the hospital with dizziness and recurrent UTI. EEG at that time showed left parietal discharges and was started on Depakote by neurology. Patient was previously taking Vimpat and Keppra which she did not tolerate. Defibrillator was also interrogated showed no evidence of arrhythmia. Seen by cardiology as well. 12/23/2024 Patient is lying in the bed. Awake alert and oriented. No complaints of chest pain or shortness of breath. No nausea or vomiting. No complaints of diarrhea. Complains of dizziness when she was getting out of bed. Continued on IV hydration. Patient has been afebrile. On antibiotics for urinary tract infections. Laboratory data showed WBC 6.2 hemoglobin 11.6 and platelets 181 Sodium 140 potassium 4.2 chloride 107 bicarb is 25.1 BUN 9.3 and creatinine 0.6 and blood sugar 91. Calcium 9.1 Current medications reviewed. Objective - Vital Signs Vital signs: Vital Signs Temp 98.4 F 12/23/24 19:38 Pulse 96 12/23/24 19:38 Resp 14 12/23/24 19:38 BP 121/64 12/23/24 19:38 Pulse Ox 96 12/23/24 12:42 FiO2 21 12/23/24 11:52 Intake & Output 12/23/24 12/23/24 12/24/24 06:59 18:59 06:59 Intake Total 540 960 Balance 540 960 Intake: Oral 540 960 Other: Voiding Method Bedside Commode Bedside Commode Diaper Diaper # Voids 2 4 # Bowel Movements 1 - Exam PHYSICAL EXAMINATION: Patient is lying in the bed comfortably, no acute distress, awake alert and alisha ented.. HEENT: Normocephalic. Neck is supple. Pupils reactive. Nostrils clear. Oral cavity is moist. Neck reveals no JVD, carotid bruits, or thyromegaly. CHEST EXAMINATION: Trachea is central. Symmetrical expansion. Lung melendez clear to auscultation and percussion. CARDIAC: Normal S1, S2 with no gallops. No murmurs ABDOMEN: Soft. Bowel sounds normal. No organomegaly. No abdominal bruits. Extremities: reveal no edema. No clubbing or cyanosis Neurologically awake, alert, oriented x3 with well-coordinated movements. No focal deficits noted Skin: No rash or skin lesions. Psychiatric: Coperative. Nonsuicidal Musculoskeletal: No joint swelling or deformity. Normal range of motion. - Labs CBC & Chem 7: 12/25/24 05:43 12/25/24 05:43 Labs: Abnormal Lab Results - Last 24 Hours (Table) 12/23/24 12/23/24 Range/Units 07:07 07:07 RBC 3.73 L (4.10-5.20) 10*6/uL Hgb 11.6 L (12.0-15.0) g/dL Hct 36.0 L (37.2-46.3) % RDW 15.0 H (11.5-14.5) % MPV 9.1 L (9.5-12.2) fL Calcium 10.3 H (8.4-10.2) mg/dL Microbiology - Last 24 Hours (Table) 12/21/24 14:47 Blood Culture - Preliminary Blood 12/21/24 11:24 Urine Culture - Final Urine,Voided Escherichia coli Assessment and Plan Assessment: Acute urinary tract infection Dizziness and lightheadedness due to orthostatic hypotension History of seizures in the past. Recent EEG showed left parietal epileptiform discharges. She was started on Depakote. Recent E. coli urinary tract infection Limited stage small cell lung cancer. Status post chemo and radiation in July 2024. Patient has trouble laying on the table because of right hip pain and has decided against further chemo or radiation treatment. Mild dysphagia from presbyesophagus. Fluoroscopy with barium swallow done recently. Continue soft diet. Hyperlipidemia Advanced degenerative disease Coronary history of CABG and prior history of PCI. Chronic CHF with ejection fraction 40 to 45%. Status post AICD placement Aortic stenosis status post TAVR COPD not in exacerbation Anemia of chronic disease Thoracoabdominal and infrarenal aortic aneurysm. On outpatient follow-up with Dr. Gross CODE STATUS DNR/DNI Plan: Patient will be continued on gentle IV hydration. Continue with IV ceftriaxone follow-up urine culture report. Continue with meclizine as needed for dizziness /vertigo. Continue with aspirin and statin. Start back on Depakote 5 mg twice daily as per recent neurology recommendations. Patient was also on midodrine 5 mg AC 3 times daily. Continue to follow closely. Symptomatic management. Prognosis guarded. Time with Patient: Greater than 30
--- NOTE | 2024-12-25 20:17 | P.PN ---
Subjective Progress Note Date: 12/24/24 Patient is a 84-year-old female with a past medical history of atrial fibrillation, coronary artery disease history of CABG, history of AICD placement, prior history of stent placement, history of CVA/TIA with no residual weakness, carotid stenosis with left carotid endarterectomy, aortic stenosis, left lung cancer with chemo and radiation in July 2024, history of GI bleed, hypertension, hyperemia, history of [place], COPD, anxiety and prior history of smoking. Patient presents to ER with complaints of dizziness and lightheadedness. Patient does have history of vertigo-like symptoms. She feels lightheaded and dizzy when she gets up from bed. She was also not feeling well and not eating or drinking. Denied any nausea or vomiting. No focal weakness. Patient does have a history of lung cancer in July 2024 with radiation and chemotherapy however this was discontinued secondary to patient not being able to tolerate treatments. Laboratory data showed WBC 6.69 hemoglobin 11.2 and platelets 180 Sodium 140 potassium 4.2 chloride 107 bicarb is 25.1 BUN 9.3 and creatinine 0.6 and blood sugar 91, calcium 9.9 liver enzymes are not elevated and TSH 0.858 Urinalysis showed cloudy with trace protein large leukocyte esterase with elevated RBCs and WBCs. Squamous epithelial cells 1. CT head showed no acute intracranial process. Follow-up MRI can be performed as clinically indicated. Chronic appearing periventricular white matter ischemic changes. Old right basal ganglia infarct. Chest x-ray showed no acute cardiopulmonary process. EKG showed sinus rhythm with possible left atrial enlargement. Patient was recently admitted to the hospital with dizziness and recurrent UTI. EEG at that time showed left parietal discharges and was started on Depakote by neurology. Patient was previously taking Vimpat and Keppra which she did not tolerate. Defibrillator was also interrogated showed no evidence of arrhythmia. Seen by cardiology as well. 12/23/2024 Patient is lying in the bed. Awake alert and oriented. No complaints of chest pain or shortness of breath. No nausea or vomiting. No complaints of diarrhea. Complains of dizziness when she was getting out of bed. Continued on IV hydration. Patient has been afebrile. On antibiotics for urinary tract infections. Laboratory data showed WBC 6.2 hemoglobin 11.6 and platelets 181 Sodium 140 potassium 4.2 chloride 107 bicarb is 25.1 BUN 9.3 and creatinine 0.6 and blood sugar 91. Calcium 9.1 12/24/2024 Patient is lying in the bed. Awake alert oriented x 3. No acute overnight issues. No nausea vomiting or diarrhea. Patient feels better. Dizziness did improve compared to yesterday. No cough or sputum production. Patient has been afebrile. Laboratory data reviewed. Patient was started back on Depakote and midodrine. Orthostatic vitals reviewed. Current medications reviewed. Objective - Vital Signs Vital signs: Vital Signs Temp 97.9 F 12/24/24 14:00 Pulse 73 12/24/24 14:00 Resp 15 12/24/24 14:00 BP 101/65 12/24/24 14:00 Pulse Ox 98 12/24/24 14:00 FiO2 21 12/23/24 11:52 Intake & Output 12/24/24 12/24/24 12/25/24 06:59 18:59 06:59 Intake Total 540 780 Balance 540 780 Intake: Oral 540 780 Other: Voiding Method Bedside Commode Bedside Commode Diaper Diaper # Voids 6 3 - Exam PHYSICAL EXAMINATION: Patient is lying in the bed comfortably, no acute distress, awake alert and oriented.. HEENT: Normocephalic. Neck is supple. Pupils reactive. Nostrils clear. Oral cavity is moist. Neck reveals no JVD, carotid bruits, or thyromegaly. CHEST EXAMINATION: Trachea is central. Symmetrical expansion. Lung melendez clear to auscultation and percussion. CARDIAC: Normal S1, S2 with no gallops. No murmurs ABDOMEN: Soft. Bowel sounds normal. No organomegaly. No abdominal bruits. Extremities: reveal no edema. No clubbing or cyanosis Neurologically awake, alert, oriented x3 with well-coordinated movements. No focal deficits noted Skin: No rash or skin lesions. Psychiatric: Coperative. Nonsuicidal Musculoskeletal: No joint swelling or deformity. Normal range of motion. - Labs CBC & Chem 7: 12/25/24 05:43 12/25/24 05:43 Labs: Microbiology - Last 24 Hours (Table) 12/21/24 14:47 Blood Culture - Preliminary Blood Assessment and Plan Assessment: Acute urinary tract infection Dizziness and lightheadedness due to orthostatic hypotension History of seizures in the past. Recent EEG showed left parietal epileptiform discharges. She was started on Depakote. Recent E. coli urinary tract infection Limited stage small cell lung cancer. Status post chemo and radiation in July 2024. Patient has trouble laying on the table because of right hip pain and has decided against further chemo or radiation treatment. Mild dysphagia from presbyesophagus. Fluoroscopy with barium swallow done recently. Continue soft diet. Hyperlipidemia Advanced degenerative disease Coronary history of CABG and prior history of PCI. Chronic CHF with ejection fraction 40 to 45%. Status post AICD placement Aortic stenosis status post TAVR COPD not in exacerbation Anemia of chronic disease Thoracoabdominal and infrarenal aortic aneurysm. On outpatient follow-up with Dr. Gross CODE STATUS DNR/DNI Plan: Patient will be continued on gentle IV hydration. Continue with IV ceftriaxone follow-up urine culture report. Continue with meclizine as needed for dizziness/vertigo. Continue with aspirin and statin. Start back on Depakote 5 mg twice daily as per recent neurology recommendations. Patient was also on midodrine 5 mg AC 3 times daily. Continue to follow closely. Symptomatic management. Prognosis guarded. Time with Patient: Greater than 30
--- NOTE | 2024-12-25 20:21 | P.PN ---
Subjective Progress Note Date: 12/25/24 Patient is a 84-year-old female with a past medical history of atrial fibrillation, coronary artery disease history of CABG, history of AICD placement, prior history of stent placement, history of CVA/TIA with no residual weakness, carotid stenosis with left carotid endarterectomy, aortic stenosis, left lung cancer with chemo and radiation in July 2024, history of GI bleed, hypertension, hyperemia, history of VA, COPD, anxiety and prior history of smoking. Patient presents to ER with complaints of dizziness and lightheadedness. Patient does have history of vertigo-like symptoms. She feels lightheaded and dizzy when she gets up from bed. She was also not feeling well and not eating or drinking. Denied any nausea or vomiting. No focal weakness. Patient does have a history of lung cancer in July 2024 with radiation and chemotherapy however this was discontinued secondary to patient not being able to tolerate treatments. Laboratory data showed WBC 6.69 hemoglobin 11.2 and platelets 180 Sodium 140 potassium 4.2 chloride 107 bicarb is 25.1 BUN 9.3 and creatinine 0.6 and blood sugar 91, calcium 9.9 liver enzymes are not elevated and TSH 0.858 Urinalysis showed cloudy with trace protein large leukocyte esterase with elevated RBCs and WBCs. Squamous epithelial cells 1. CT head showed no acute intracranial process. Follow-up MRI can be performed as clinically indicated. Chronic appearing periventricular white matter ischemic changes. Old right basal ganglia infarct. Chest x-ray showed no acute cardiopulmonary process. EKG showed sinus rhythm with possible left atrial enlargement. Patient was recently admitted to the hospital with dizziness and recurrent UTI. EEG at that time showed left parietal discharges and was started on Depakote by neurology. Patient was previously taking Vimpat and Keppra which she did not tolerate. Defibrillator was also interrogated showed no evidence of arrhythmia. Seen by cardiology as well. 12/23/2024 Patient is lying in the bed. Awake alert and oriented. No complaints of chest pain or shortness of breath. No nausea or vomiting. No complaints of diarrhea. Complains of dizziness when she was getting out of bed. Continued on IV hydration. Patient has been afebrile. On antibiotics for urinary tract infections. Laboratory data showed WBC 6.2 hemoglobin 11.6 and platelets 181 Sodium 140 potassium 4.2 chloride 107 bicarb is 25.1 BUN 9.3 and creatinine 0.6 and blood sugar 91. Calcium 9.1 12/24/2024 Patient is lying in the bed. Awake alert oriented x 3. No acute overnight issues. No nausea vomiting or diarrhea. Patient feels better. Dizziness did improve compared to yesterday. No cough or sputum production. Patient has been afebrile. Laboratory data reviewed. Patient was started back on Depakote and midodrine. Orthostatic vitals reviewed. 12/25/2024 Patient is resting in bed. Awake alert and oriented x 3. Still complains of dizziness when she gets up. Patient is orthostatic positive. Continued on midodrine 5 mg 3 times daily. Patient does not want to take Depakote. No headache. No cough or sputum pr oduction. Laboratory data showed WBC 6.0 hemoglobin 11.6 and platelets 194 sodium 141 potassium 4.7 chloride 105 bicarb is 26.7 BUN 15.7 creatinine 0.7 and blood sugar 9087 and calcium 10.5. Continued on IV hydration with normal saline at 75 cc/h. Current medications reviewed. Objective - Vital Signs Vital signs: Vital Signs Temp 97.9 F 12/25/24 19:59 Pulse 73 12/25/24 19:59 Resp 14 12/25/24 19:59 BP 125/71 12/25/24 19:59 Pulse Ox 94 L 12/25/24 19:59 FiO2 21 12/23/24 11:52 Intake & Output 12/25/24 12/25/24 12/26/24 06:59 18:59 06:59 Intake Total 540 1140 Balance 540 1140 Intake: Oral 540 1140 Other: Voiding Method Bedside Commode Bedside Commode Diaper Diaper # Voids 4 2 - Exam PHYSICAL EXAMINATION: Patient is lying in the bed comfortably, no acute distress, awake alert and oriented.. HEENT: Normocephalic. Neck is supple. Pupils reactive. Nostrils clear. Oral cavity is moist. Neck reveals no JVD, carotid bruits, or thyromegaly. CHEST EXAMINATION: Trachea is central. Symmetrical expansion. Lung melendez clear to auscultation and percussion. CARDIAC: Normal S1, S2 with no gallops. No murmurs ABDOMEN: Soft. Bowel sounds normal. No organomegaly. No abdominal bruits. Extremities: reveal no edema. No clubbing or cyanosis Neurologically awake, alert, oriented x3 with well-coordinated movements. No focal deficits noted Skin: No rash or skin lesions. Psychiatric: Coperative. Nonsuicidal Musculoskeletal: No joint swelling or deformity. Normal range of motion. - Labs CBC & Chem 7: 12/25/24 05:43 12/25/24 05:43 Labs: Abnormal Lab Results - Last 24 Hours (Table) 12/25/24 12/25/24 Range/Units 05:43 05:43 RBC 3.77 L (4.10-5.20) X 10*6/uL Hgb 11.6 L (12.0-15.0) g/dL Hct 36.6 L (37.2-46.3) % MCV 97.1 H (80.0-97.0) FL MCHC 31.7 L (32.0-37.0) g/dL RDW 15.6 H (11.5-14.5) % BUN/Creatinine Ratio 22.43 H (12.00-20.00) Ratio Calcium 10.5 H (8.7-10.3) mg/dL Microbiology - Last 24 Hours (Table) 12/21/24 14:47 Blood Culture - Preliminary Blood Assessment and Plan Assessment: Acute urinary tract infection Dizziness and lightheadedness due to orthostatic hypotension History of seizures in the past. Recent EEG showed left parietal epileptiform discharges. Patient does not want to take Depakote or any antiepileptic medications.. Recent E. coli urinary tract infection Limited stage small cell lung cancer. Status post chemo and radiation in July 2024. Patient has trouble laying on the table because of right hip pain and has decided against further chemo or radiation treatment. Mild dysphagia from presbyesophagus. Fluoroscopy with barium swallow done recently. Continue soft diet. Hyperlipidemia Advanced degenerative disease Coronary history of CABG and prior history of PCI. Chronic CHF with ejection fraction 40 to 45%. Status post AICD placement Aortic stenosis status post TAVR COPD not in exacerbation Anemia of chronic disease Thoracoabdominal and infrarenal aortic aneurysm. On outpatient follow-up with Dr. Renato LOPEZ STATUS DNR/DNI Plan: Patient will be continued on gentle IV hydration. Completed ceftriaxone for 3 days. Urine culture was not sent. Continue with meclizine as needed for dizziness/vertigo. Patient was also on midodrine 5 mg AC 3 times daily. Continue with aspirin and statin. Cardiology consult for further evaluation of dizziness. Symptomatic management. Prognosis guarded. Time with Patient: Greater than 30
[2024-12-26 02:28] VITALS: TEMP 97.8
[2024-12-26 07:30] VITALS: PULSE 69; RESP 16
--- NOTE | 2024-12-26 11:07 | P.CRDCN ---
History of Present Illness Consult date: 12/26/24 Reason for Consult (text): Dizziness History of present illness: This is an 84-year-old female patient of Dr. Heri Mo with past medical history of coronary artery disease status post CABG-with BRUSH to LAD, SVG to OM and PDA, aortic stenosis status post TAVR, ascending aortic aneurysm, TIA, ischemic cardiomyopathy status post dual-chamber ICD [employer], carotid artery disease status post left endarterectomy. We have been asked to evaluate the patient for dizziness. Patient had a recent hospitalization at which time she was seen by cardiology for dizziness in October of this year. No definitive cause of the dizziness was identified. Patient states that when she was getting up she was so dizzy she could not function. She still dizzy at this time. Patient initially presented on 12/21 with above complaints. She denies any chest pain chest pressure, no palpitations. She denies lower extremity edema. She denies cough or fever. No wheezing. She denies any blood in her urine or stool. No history of stroke. She does have seizure history apparently. Patient does not know how long the dizziness lasts. It happens when she is laying down or sitting up or standing. Noted the patient was started on midodrine during this hospitalization. Blood pressure 130/70, heart rate 60s and 70s, pulse ox 97% on room air. Orthostatic vital signs of all been negative. -EKG: Sinus rhythm with no acute changes. -Chest x-ray: No acute process. -CT brain: No acute process. -Laboratory studies: WBC 6, hemoglobin 1.6, creatinine 0.7, potassium 4.7. Magnesium 1.9. TSH 0.858. Urinalysis positive for UTI. -Home cardiac medications: Aspirin 81 mg daily. -Echocardiogram performed in the office on 08/29/2024 revealed EF 40 to 45% akinetic areas in the inferior and inferior septal zuleta from the mid wall to the apex. Small akinetic area in the lateral wall of the apex. Borderline concentric biventricular hypertrophy. Transcatheter AV prosthesis with normal function. Ascending aorta is aneurysmal. Mild mitral regurgitation. Mild to moderate tricuspid regurgitation. PASP 35 mmHg. Review Of Systems: At the time of my exam: CONSTITUTIONAL: Denies fever or chills. Reports dizziness HEENT: Denies blurred vision, vision changes, or eye pain. Denies hemoptysis CARDIOVASCULAR: Denies chest pain. Denies orthopnea. Denies PND. Denies palpitations RESPIRATORY: Denies shortness of breath. GASTROINTESTINAL: Denies abdominal pain. Denies nausea or vomiting. HEMATOLOGIC: Denies bleeding disorders. GENITOURINARY: Denies any blood in urine. SKIN: Denies puritis. Denies rash. Physical examination: Gen: This is 84-year-old female in no acute distress VS: reviewed HEENT: Head is atraumatic, normocephalic. Pupils equal, round. Sclerae is anicteric. NECK: Supple. No JVD. LUNGS: Clear to auscultation. No wheezes or rhonchi. No intercostal retractions. HEART: Regular rate and rhythm. Systolic murmur. ABDOMEN: Soft No tenderness. EXTREMITIES: No pedal edema. No calf tenderness. NEUROLOGICAL: Patient is awake, alert and oriented x3. Assessment: Dizziness of unclear etiology Acute UTI Coronary artery disease status post CABG Aortic stenosis status post TAVR Ascending aortic aneurysm History of TIA Ischemic cardiomyopathy status post dual-chamber ICD Carotid artery disease status post endarterectomy in the left Plan: Continue current cardiac medications: Aspirin, atorvastatin Noted patient was started on midodrine on this hospitalization Dizziness is not likely to be a cardiac etiology. Patient is cleared for discharge from cardiology and may follow-up with Dr. Heri Mo in 2 weeks. No need to repeat echocardiogram Thank you kindly for this consultation. Nurse practitioner note has been reviewed, I agree with documented findings and plan of care. Patient was seen and examined. Past Medical History Past Medical History: Atrial Fibrillation, Coronary Artery Disease (CAD), Cancer, COPD, CVA/TIA, GERD/Reflux, GI Bleed, Hyperlipidemia, Hypertension, Myocardial Infarction ([place]), Osteoarthritis (OA), Vascular Disorder Additional Past Medical History / Comment(s): left lung CA, 07/2024 with chemo and radiation. 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, 02/2020 TIA, TIA 10/2022, carotid stenosis with L carotid endartectomy, pt states she has had irregular heart beat in past but cannot recall type, aortic stenosis/regurgitation, vertigo, balance issues-uses walker, back pain/disc problems, benign colon polyp,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, Lung CA Last Myocardial Infarction Date:: 2000 History of Any Multi-Drug Resistant Organisms: None Reported Past Surgical History: AICD, Appendectomy, Bowel Resection, Cholecystectomy, C oronary Bypass/CABG, Heart Catheterization With Stent, Hernia Repair, Orthopedic Surgery Additional Past Surgical History / Comment(s): Arch studies, 2000 PCI with stents, 2002 CABG-3 vessel, 2002 AICD, AICD gen changes, DFTs, 2002 L carotid endartectomy, bowel resection for benign flat polyp, abdominal hernia repair, L hip fracture with surgery, L arm benign lesion removed, colonoscopies/polyps, ALEXIS Past Anesthesia/Blood Transfusion Reactions: Motion Sickness Additional Past Anesthesia/Blood Transfusion Reaction / Comment(s): woke up during battery replacement in defibrillator Date of Last Stent Placement:: 2000 Type of Cardiac Device: AICD Device Placement Date:: 2002- [employer] Past Psychological History: Anxiety Additional Psychological History / Comment(s): She uses a walker. She no longer drives, her granddaughter drives her. Smoking Status: Former smoker Past Alcohol Use History: None Reported Additional Past Alcohol Use History / Comment(s): Pt started smoking in 1969 and was a ppd smoker then cut down to 5 cigarettes a day and recently quit on 10/02/21. States she smoked 60 years Past Drug Use History: None Reported - Past Family History Sister(s) Family Medical History: Cancer Additional Family Medical History / Comment(s): Sister had breast/bladder cancers. Son(s) Family Medical History: Cancer Additional Family Medical History / Comment(s): pancreatic cancer Father Family Medical History: Cancer Additional Family Medical History / Comment(s): Bowel cancer. Mother Family Medical History: Cancer Additional Family Medical History / Comment(s): Mother had bowel cancer twice and 2nd time metastasized to her kidney. Medications and Allergies Home Medications Medication Instructions Recorded Confirmed Type Aspirin 81 mg PO DAILY 30 Days #30 tab 06/24/23 12/21/24 Rx Ascorbic Acid [Vitamin C] 1,000 mg PO DAILY 04/26/24 12/21/24 History Cholecalciferol [Vitamin D3 (25 25 mcg PO DAILY 04/26/24 12/21/24 History Mcg = 1000 Iu)] Cyanocobalamin [Vitamin B-12] 500 mcg PO DAILY 04/26/24 12/21/24 History Famotidine/Ca Carb/Mag Hydrox 1 tab PO DAILY 04/26/24 12/21/24 History [Pepcid Complete Tablet Chew] Psyllium Husk [Fiber Capsule] 0.4 gm PO DAILY 04/26/24 12/21/24 History Quercetin 500 mg PO DAILY 04/26/24 12/21/24 History Allergies Allergy/AdvReac Type Severity Reaction Status Date / Time lacosamide [From Vimpat] AdvReac AMS Verified 12/21/24 09:11 levetiracetam [From Keppra] AdvReac AMS Verified 12/21/24 09:11 Physical Exam Vitals: Vital Signs Temp Pulse Pulse Pulse Pulse Resp BP 12/26/24 07:10 69 71 70 16 118/70 12/26/24 02:00 97.8 F 60 14 12/25/24 19:59 97.9 F 73 73 56 L 14 115/67 12/25/24 13:35 97.5 F L 70 16 93/60 12/25/24 11:25 BP BP Pulse Ox 12/26/24 07:10 122/72 121/73 97 12/26/24 02:00 130/70 97 12/25/24 19:59 103/67 125/71 94 L 12/25/24 13:35 96 12/25/24 11:25 96 Intake and Output 12/25/24 12/26/24 12/26/24 22:59 06:59 14:59 Intake Total 900 540 Balance 900 540 Intake: Oral 900 540 Other: Voiding Method Toilet Bedside Commode Diaper # Voids 2 3 Results 12/25/24 05:43 12/25/24 05:43 Comprehensive Metabolic Panel 12/25/24 Range/Units 05:43 Sodium 141 (135-145) mmol/L Potassium 4.7 (3.5-5.5) mmol/L Chloride 105 (96-109) mmol/L Carbon Dioxide 26.7 (21.6-31.8) mmol/L BUN 15.7 (9.0-27.0) mg/dL Creatinine 0.7 (0.6-1.5) mg/dL Glucose 87 (70-110) mg/dL Calcium 10.5 H (8.7-10.3) mg/dL Current Medications Generic Name Dose Route Start Last Admin Trade Name Freq PRN Reason Stop Dose Admin Acetaminophen 650 mg 12/21/24 14:01 Acetaminophen Tab 325 Mg Tab PO Q6HR PRN Mild Pain or Fever > 100.5 Ascorbic Acid 1,000 mg 12/23/24 09:00 12/25/24 07:58 Ascorbic Acid 500 Mg Tab PO 1,000 mg DAILY AYLIN Administration Aspirin 81 mg 12/23/24 09:00 12/25/24 08:09 Aspirin 81 Mg PO 81 mg DAILY AYLIN Administration Atorvastatin Calcium 20 mg 12/23/24 21:00 12/25/24 20:35 Atorvastatin 20 Mg Tab PO 20 mg HS AYLIN Administration Cholecalciferol 25 mcg 12/23/24 09:00 12/25/24 07:58 Cholecalciferol 25 Mcg (1000 Iu) Tablet PO 25 mcg DAILY AYLIN Administration Cyanocobalamin 500 mcg 12/23/24 09:00 12/25/24 07:58 Cyanocobalamin 500 Mcg Tab PO 500 mcg DAILY AYLIN Administration Famotidine 20 mg 12/22/24 21:00 12/25/24 20:34 Famotidine 20 Mg Tab PO 20 mg BID AYLIN Administration Sodium Chloride 1,000 mls @ 75 mls/hr 12/21/24 09:30 12/25/24 20:35 Saline 0.9% IV Not Given .[id number] AYLIN Ceftriaxone Sodium 1 gm/ 50 mls @ 100 mls/hr 12/23/24 09:00 12/25/24 07:58 Sodium Chloride IVPB 100 mls/hr Q24HR@0900 AYLIN Administration Protocol Meclizine HCl 25 mg 12/21/24 14:02 Meclizine 25 Mg Tab PO QID PRN Vertigo Metoclopramide HCl 10 mg 12/21/24 17:30 12/25/24 20:35 Metoclopramide 10 Mg Tab PO 10 mg ACHS AYLIN Administration Midodrine 5 mg 12/25/24 07:30 12/25/24 17:51 Midodrine 5 Mg Tab PO 5 mg AC-TID AYLIN Administration Naloxone HCl 0.2 mg 12/21/24 14:01 Naloxone 0.4 Mg/Ml 1 Ml Vial IV Q2M PRN Opioid Reversal Intake and Output 12/25/24 12/26/24 12/26/24 22:59 06:59 14:59 Intake Total 900 540 Balance 900 540 Intake: Oral 900 540 Other: Voiding Method Toilet Bedside Commode Diaper # Voids 2 3 12/25/24 05:43 12/25/24 05:43
[2024-12-26 12:19] VITALS: BP 108/69
--- NOTE | 2024-12-31 16:20 | P.DS ---
Providers Date of admission: 12/25/24 10:23 Expected date of discharge: 12/26/24 Attending physician: Branden Davis MD Consults: 12/25/24 20:21 Consult Physician Routine Consulting Provider: Mark Nelson Consult Reason/Comments: Dizziness Do you want consulting provider notified?: Yes, Notify in am Primary care physician: [facility] Course: Discharge diagnosis Acute urinary tract infection completed antibiotic course. Dizziness and lightheadedness due to orthostatic hypotension History of seizures in the past. Recent EEG showed left parietal epileptiform discharges. Patient does not want to take Depakote or any antiepileptic medications.. Recent E. coli urinary tract infection Limited stage small cell lung cancer. Status post chemo and radiation in July 2024. Patient has trouble laying on the table because of right hip pain and has decided against further chemo or radiation treatment. Mild dysphagia from presbyesophagus. Fluoroscopy with barium swallow done recently. Continue soft diet. Hyperlipidemia Advanced degenerative disease Coronary history of CABG and prior history of PCI. Chronic CHF with ejection fraction 40 to 45%. Status post AICD placement Aortic stenosis status post TAVR COPD not in exacerbation Anemia of chronic disease Thoracoabdominal and infrarenal aortic aneurysm. On outpatient follow-up with Dr. Gross CODE STATUS DNR/DNI Hospital course Patient is a 84-year-old female with a past medical history of atrial fibrillation, coronary artery disease history of CABG, history of AICD placement, prior history of stent placement, history of CVA/TIA with no residual weakness, carotid stenosis with left carotid endarterectomy, aortic stenosis, left lung cancer with chemo and radiation in July 2024, history of GI bleed, hypertension, hyperemia, history of NH, COPD, anxiety and prior history of smoking. Patient presents to ER with complaints of dizziness and lightheadedness. Patient does have history of vertigo-like symptoms. She feels lightheaded and dizzy when she gets up from bed. She was also not feeling well and not eating or drinking. Denied any nausea or vomiting. No focal weakness. Patient does have a history of lung cancer in July 2024 with radiation and chemotherapy however this was discontinued secondary to patient not being able to tolerate treatments. Laboratory data showed WBC 6.69 hemoglobin 11.2 and platelets 180 Sodium 140 potassium 4.2 chloride 107 bicarb is 25.1 BUN 9.3 and creatinine 0.6 and blood sugar 91, calcium 9.9 liver enzymes are not elevated and TSH 0.858 Urinalysis showed cloudy with trace protein large leukocyte esterase with elevated RBCs and WBCs. Squamous epithelial cells 1. CT head showed no acute intracranial process. Follow-up MRI can be performed as clinically indicated. Chronic appearing periventricular white matter ischemic changes. Old right basal ganglia infarct. Chest x-ray showed no acute cardiopulmonary process. EKG showed sinus rhythm with possible left atrial enlargement. Patient was recently admitted to the hospital with dizziness and recurrent UTI. EEG at that time showed left parietal discharges and was started on Depakote by neurology. Patient was previously taking Vimpat and Keppra which she did not tolerate. Defibrillator was also interrogated showed no evidence of arrhythmia. Seen by cardiology as well. 12/23/2024 Patient is lying in the bed. Awake alert and oriented. No complaints of chest pain or shortness of breath. No nausea or vomiting. No complaints of diarrhea. Complains of dizziness when she was getting out of bed. Continued on IV hydration. Patient has been afebrile. On antibiotics for urinary tract infections. Laboratory data showed WBC 6.2 hemoglobin 11.6 and platelets 181 Sodium 140 potassium 4.2 chloride 107 bicarb is 25.1 BUN 9.3 and creatinine 0.6 and blood sugar 91. Calcium 9.1 12/24/2024 Patient is lying in the bed. Awake alert oriented x 3. No acute overnight issues. No nausea vomiting or diarrhea. Patient feels better. Dizziness did improve compared to yesterday. No cough or sputum production. Patient has been afebrile. Laboratory data reviewed. Patient was started back on Depakote and midodrine. Orthostatic vitals reviewed. 12/25/2024 Patient is resting in bed. Awake alert and oriented x 3. Still complains of dizziness when she gets up. Patient is orthostatic positive. Continued on midodrine 5 mg 3 times daily. Patient does not want to take Depakote. No headache. No cough or sputum production. Laboratory data showed WBC 6.0 hemoglobin 11.6 and platelets 194 sodium 141 potassium 4.7 chloride 105 bicarb is 26.7 BUN 15.7 creatinine 0.7 and blood sugar 9087 and calcium 10.5. Continued on IV hydration with normal saline at 75 cc/h. 12/26/2024 Patient is currently sitting in the chair. Awake alert and oriented. Dizziness is improved today. Tolerating oral diet. IV fluids off. Patient is being continued on midodrine. Denied any complaints of chest pain or shortness of breath. Patient was seen by cardiology, does not seem like dizziness from cardiac etiology. Patient was recommended to follow-up with ENT as well. Other laboratory data reviewed. Patient was advised to continue midodrine and follow- up with primary care physician and cardiology as an outpatient. Patient is being discharged home today. Patient completed antibiotic course for E. coli urinary tract infection. Orthostatic vitals negative today. PHYSICAL EXAMINATION: Patient is lying in the bed comfortably, no acute distress, awake alert and oriented.. HEENT: Normocephalic. Neck is supple. Pupils reactive. Nostrils clear. Oral cavity is moist. Neck reveals no JVD, carotid bruits, or thyromegaly. CHEST EXAMINATION: Trachea is central. Symmetrical expansion. Lung melendez clear to auscultation and percussion. CARDIAC: Normal S1, S2 with no gallops. No murmurs ABDOMEN: Soft. Bowel sounds normal. No organomegaly. No abdominal bruits. Extremities: reveal no edema. No clubbing or cyanosis Neurologically awake, alert, oriented x3 with well-coordinated movements. No focal deficits noted Skin: No rash or skin lesions. Psychiatric: Coperative. Nonsuicidal Musculoskeletal: No joint swelling or deformity. Normal range of motion. Vitals: Vital Signs Temp Pulse Pulse Pulse Pulse Resp BP 12/26/24 07:10 69 71 70 16 118/70 12/26/24 02:00 97.8 F 60 14 12/25/24 19:59 97.9 F 73 73 56 L 14 115/67 12/25/24 13:35 97.5 F L 70 16 93/60 12/25/24 11:25 BP BP Pulse Ox 12/26/24 07:10 122/72 121/73 97 12/26/24 02:00 130/70 97 12/25/24 19:59 103/67 125/71 94 L 12/25/24 13:35 96 12/25/24 11:25 96 Total time taken greater than 35 minutes including 18 minutes for counseling and coordination of care. Patient Condition at Discharge: Stable Plan - Discharge Summary Discharge Rx Participant: No New Discharge Prescriptions: New Atorvastatin [Lipitor] 20 mg PO HS tab Midodrine [ProAmatine] 5 mg PO AC-TID 30 Days #90 tablet Continue Aspirin 81 mg PO DAILY 30 Days #30 tab Quercetin 500 mg PO DAILY Cyanocobalamin [Vitamin B-12] 500 mcg PO DAILY Cholecalciferol [Vitamin D3 (25 Mcg = 1000 Iu)] 25 mcg PO DAILY Ascorbic Acid [Vitamin C] 1,000 mg PO DAILY Famotidine/Ca Carb/Mag Hydrox [Pepcid Complete Tablet Chew] 1 tab PO DAILY Psyllium Husk [Fiber Capsule] 0.4 gm PO DAILY Discharge Medication List Aspirin 81 mg PO DAILY 30 Days #30 tab 06/24/23 [Rx] Ascorbic Acid [Vitamin C] 1,000 mg PO DAILY 04/26/24 [History] Cholecalciferol [Vitamin D3 (25 Mcg = 1000 Iu)] 25 mcg PO DAILY 04/26/24 [History] Cyanocobalamin [Vitamin B-12] 500 mcg PO DAILY 04/26/24 [History] Famotidine/Ca Carb/Mag Hydrox [Pepcid Complete Tablet Chew] 1 tab PO DAILY 04/26/24 [History] Psyllium Husk [Fiber Capsule] 0.4 gm PO DAILY 04/26/24 [History] Quercetin 500 mg PO DAILY 04/26/24 [History] Atorvastatin [Lipitor] 20 mg PO HS tab 12/26/24 [Rx] Midodrine [ProAmatine] 5 mg PO AC-TID 30 Days #90 tablet 12/26/24 [Rx] Follow up Appointment(s)/Referral(s): Nishant Huffman DO [Primary Care Provider] - 1-2 days (The office will call with a follow up appointment.) Michael Mo MD [STAFF PHYSICIAN] - 01/09/25 2:30 pm Patient Instructions/Handouts: Dehydration (DC), Urinary Tract Infection in Women (DC), Near Syncope (DC) Discharge Disposition: HOME WITH HOME HEALTH SERVICES
== END 2024-12-26 17:52 | disposition home health service (06) | DRG 312 ==
LOC: EC 09:01 → 5NMEDONC 14:03 → OBSVTOIN 12-25 10:23
PROVIDERS: ADMIT Internal Medicine; ATTEND Internal Medicine
DX: I95.1 Orthostatic hypotension (principal); C34.90 Malignant neoplasm of unspecified part of unspecified bronchus or lung; Z66 Do not resuscitate; I50.9 Heart failure, unspecified; I11.0 Hypertensive heart disease with heart failure; D63.8 Anemia in other chronic diseases classified elsewhere; J44.9 Chronic obstructive pulmonary disease, unspecified; I71.21 Aneurysm of the ascending aorta, without rupture; I07.1 Rheumatic tricuspid insufficiency; N39.0 Urinary tract infection, site not specified; I48.91 Unspecified atrial fibrillation; R13.10 Dysphagia, unspecified; I25.10 Atherosclerotic heart disease of native coronary artery without angina pectoris; I25.5 Ischemic cardiomyopathy; K21.9 Gastro-esophageal reflux disease without esophagitis; E78.5 Hyperlipidemia, unspecified; M19.90 Unspecified osteoarthritis, unspecified site; F41.9 Anxiety disorder, unspecified; K22.89 Other specified disease of esophagus; M25.551 Pain in right hip; I71.43 Infrarenal abdominal aortic aneurysm, without rupture; I71.60 Thoracoabdominal aortic aneurysm, without rupture, unspecified; Z95.2 Presence of prosthetic heart valve; Z79.899 Other long term (current) drug therapy; Z79.82 Long term (current) use of aspirin; Z88.8 Allergy status to other drugs, medicaments and biological substances; Z95.1 Presence of aortocoronary bypass graft; Z95.810 Presence of automatic (implantable) cardiac defibrillator; Z86.73 Personal history of transient ischemic attack (TIA), and cerebral infarction without residual deficits; Z95.5 Presence of coronary angioplasty implant and graft; Z92.3 Personal history of irradiation; Z92.21 Personal history of antineoplastic chemotherapy; Z87.891 Personal history of nicotine dependence; Z87.440 Personal history of urinary (tract) infections; I25.2 Old myocardial infarction
CPT/HCPCS: 36415; 70450; 71046; 80048; 80053; 81001; 83605; 83735; 84443; 85025; 85610; 85730; 87040; 87077; 87086; 87186; 93005; 94760; 96361; 96365; 99285